=== PATIENT | male | born 1950 | race Caucasian/White ===

== ENCOUNTER 2018-09-09 14:36 | Inpatient (IN) | payer MEDICARE, OTHER ==
[~2018-09-09] VITALS: Ht 175.3 cm; Wt 101.4 kg
[~2018-09-09 14:36] MED LIST: ASPI81TA59 PO; ATOR40TA59 PO; BUDE10.22 IH; DILT120C85 PO; DULO30CA2 PO; FERR325T72 PO; FINA5TAB4 PO; HYDR-2761 PO; HYDR-2765 PO; INSU100I27 SQ; LEVO50TA5 PO; LIDO700A4 TD; LISI2.5T PO; LORA0.5T PO; METO25TA4 PO; MULT1TAB90 PO; PANT40TA5 PO; TAMS0.4C2 PO; TAMS0.4C97 PO; TIOT18CA IH; TRAM50TA PO; VERA240C2 PO; WARF-78 PO
[2018-09-09] MEDS ORDERED: THIAMINE 100 MG TABLET. PO STA (14:38)
[2018-09-09] MEDS ORDERED: FOLIC ACID 1 MG TABLET. PO STA (14:38)
[2018-09-09 14:57] LABS: BILIRUBIN,URINE NEGATIVE (NEG); CLARITY,URINE CLEAR; COLOR,URINE YELLOW; NITRITE,URINE NEGATIVE (NEG); PROTEIN,URINE NEGATIVE (NEG-TRACE); UROBILINOGEN,URINE 0.2 mg/dL (0.2 mg/dL)
[2018-09-09 14:58] LABS: BASO % 0 % (0-3); EOS % 0 % (0-3); HEMATOCRIT 39.1 % (39.0-53.0); HEMOGLOBIN 12.9 g/dL (13.0-17.5); LYMPH # 0.5 x10^3/uL (1.0-4.8); LYMPH % 5 % (24-48); MEAN CORPUSCULAR HEMOGLOBIN 28 pg (25-35); MEAN CORPUSCULAR HGB CONC 33 g/dL (31-37); MEAN CORPUSCULAR VOLUME 86 fL (79-100); MONO # 0.5 x10^3/uL (0.0-1.1); MONO % 5 % (0-9); NEUT # 9.2 x10^3uL (1.8-7.7); NEUT % 90 % (31-73); PLATELET COUNT 271 x10^3/uL (140-400); RED BLOOD COUNT 4.57 x10^6/uL (4.30-5.70); RED CELL DISTRIBUTION WIDTH 14.7 % (11.5-14.5); WHITE BLOOD COUNT 10.3 x10^3/uL (4.0-11.0)
[2018-09-09] MEDS ORDERED: IV NORMAL SALINE 1000ML BAG 1,000 ML IV ONE (15:00)
[2018-09-09 15:10] LABS: PROTHROMBIN TIME PATIENT 12.8 SEC (11.7-14.0)
[2018-09-09 15:14] LABS: BACTERIA,URINE 0 /HPF (0-FEW); BARBITURATES NEG (NEG); BENZODIAZEPINES NEG (NEG); CANNABINOIDS NEG (NEG); COCAINE NEG (NEG); METHADONE NEG (NEG); OPIATES POS (NEG); PHENCYCLIDINE NEG (NEG); RBC,URINE 0 /HPF (0-2); SQUAMOUS EPITHELIAL CELL,UR FEW /LPF; WBC,URINE 0 /HPF (0-4)
[2018-09-09 15:15] LABS: AMPHETAMINE/METHAMPHETAMINE NEG (NEG); CALCIUM 9.2 mg/dL (8.5-10.1); CREATININE 2.3 mg/dL (0.7-1.3); GFR 28.3
[2018-09-09 15:16] LABS: ACETAMIN < 2 mcg/ml (10-30); ETHANOL < 10 mg/dL (0-10); SALIC < 2.8 mg/dL (2.8-20.0)
[2018-09-09 15:24] LABS: ALBUMIN 3.7 g/dL (3.4-5.0); MAGNESIUM 2.2 mg/dL (1.8-2.4); TOTAL BILIRUBIN 0.3 mg/dL (0.2-1.0); TOTAL PROTEIN 7.3 g/dL (6.4-8.2)
[2018-09-09 15:31] LABS: % BANDS 1 % (0-9); % LYMPHS 4 % (24-48); % MONOS 3 % (0-10); % SEGS 92 % (35-66)
[2018-09-09 15:32] LABS: PLT ESTIMATE ADEQUATE (ADEQUATE)
--- NOTE | 2018-09-09 15:48 | RAD ---
PQRS Compliance statement: One or more of the following individualized dose reduction techniques were utilized for this examination: 1. Automated exposure control. 2. Adjustment of the mA and/or kV according to patient size. 3. Use of iterative reconstruction technique. Indication:ALTERED MENTAL STATUS, CHANGES IN SPEECH PER FAMILY TECHNIQUE: CT head without IV contrast COMPARISON:07/09/2016 FINDINGS: No pathologic extra-axial or intra-axial fluid collection. Mild diffuse cerebral atrophy. The ventricles and basal cisterns are within normal limits. No acute intracranial bleed. Confluent low-attenuation is seen in the periventricular and deep white matter. No focal loss of fonseca-white differentiation. Orbits are within normal limits. Mucous retention cyst or polyp seen in the right maxillary sinus. Significant atherosclerotic burden seen in the bilateral carotid bulbs. No acute calvarial fractures. Atherosclerotic disease seen of the bilateral cavernous segments of the ICA. No suspicious calvarial lesion. IMPRESSION: 1. No acute intracranial bleed. 2. White matter changes likely secondary to chronic microvascular ischemic disease. If concern for acute ischemic stroke is high, please consider MRI brain. Electronically signed by: Jay Matute DO (09/09/2018 3:44 PM) [facility]
[2018-09-09 16:17] LABS: BASE EXCESS IS ARTERIAL 0 mmol/L (0-3); HCO3 IS ARTERIAL 27 mmol/L (21-28); PH IS ARTERIAL 7.26 (7.35-7.45); PO2 IS ARTERIAL 68 mmHg (75-100); SAT O2 IS ARTERIAL 89 % (95-99); TCO2 IS ARTERIAL 29 mmol/L (21-32)
[2018-09-09] MEDS ORDERED: LABETALOL 20 MG/4 ML DISP.SYRIN. IVP ONE (17:00)
[2018-09-09] MEDS ORDERED: chlordiazePOXIDE HCL 25 MG CAPSULE PO PRN (17:00)
[2018-09-09] MEDS ORDERED: ACETAMINOPHEN 500 MG TABLET PO PRN (17:00)
[2018-09-09] MEDS ORDERED: NICOTINE 21MG PATCH. TD PRN (17:15)
[2018-09-09] MEDS ORDERED: DEXTROSE 50% 25 GM / 50ML DISP.SYRIN. IV PRN (17:15)
[2018-09-09] MEDS ORDERED: diphenhydrAMINE HCL 25 MG CAPSULE PO PRN (17:15)
[2018-09-09] MEDS ORDERED: oxyCODONE/APAP 5/325 1 TAB TABLET PO PRN (17:15)
[2018-09-09] MEDS ORDERED: LORazepam 0.5 MG TABLET PO PRN (17:15)
[2018-09-09] MEDS ORDERED: traMADol 50 MG TABLET PO PRN (17:15)
--- NOTE | 2018-09-09 17:22 | RAD ---
Indication:Weak and fatigue TECHNIQUE:Portable AP chest X-ray COMPARISON:07/10/2016 FINDINGS: Patient is rotated to the right side. Median sternotomy noted. Heart is moderately enlarged in size. Lungs are hyperinflated with patchy opacities in the right lung base. No pneumothorax or pleural effusion. Visualized bony thorax is within normal limits. IMPRESSION: Mild patchy opacities in the right lung base may be secondary to subsegmental atelectasis or pneumonia. Findings of COPD. Electronically signed by: Jay Matute DO (09/09/2018 5:18 PM) [facility]
[2018-09-09] MEDS ORDERED: IV NORMAL SALINE 1000ML BAG 1,000 ML IV SCH ×2 (17:30→18:00)
[2018-09-09] MEDS ORDERED: cloNIDine HCL 0.1 MG TABLET PO PRN (17:30)
[2018-09-09] MEDS ORDERED: IPRATRPIUM/ALBUTEROL 0.5/2.5MG 3 ML NEBU. NEB ONE (17:30)
[2018-09-09] MEDS: WARFARIN 7.5 MG TABLET. PO SCH (18:00)
--- NOTE | 2018-09-09 18:02 | PHYS DOC ---
Past Medical History Past Medical History: Alcoholism, CAD, COPD, Diabetes-Type II, High Cholesterol , Hypertension, Other Additional Past Medical Histor: WEARS CPAP AT NIGHT Past Surgical History: Coronary Bypass Surgery Alcohol Use: Heavy Drug Use: None Adult General Chief Complaint Chief Complaint: TREMORS HPI HPI Patient is a 67 year old m brought in by ambulance with a chief complaint of altered mental status. Apparently the patient has been in bed for about 2 weeks he has had some bad back pain which is typical for him. Patient apparently drank alcohol for the first time in a couple of weeks last night he also had a new prescription for [place] that was given to him at the [place] yesterday. 14 of them are missing family does not know if or when he took it. This morning he slept in late which was unusual for him and he was twitching and having tremors and saying he needed help and was really altered from his baseline. History limited by altered mental status. Review of Systems Review of Systems According to the family no recent fevers but he has been in bed for the last 2 weeks For review of systems Limited by the patient's mental status. Current Medications Current Medications Current Medications Medications (Trade) Dose Ordered Sig/Drew Start Time Stop Time Status Last Admin Dose Admin Acetaminophen (Tylenol) 500 mg PRN Q6HRS PRN 09/09/18 17:00 Chlordiazepoxide (Librium) 25 mg PRN Q6HRS PRN 09/09/18 17:00 Dextrose (Dextrose 50%-Water Syringe) 12.5 gm PRN Q15MIN PRN 09/09/18 17:15 Diphenhydramine HCl (Benadryl) 25 mg PRN QHS PRN 09/09/18 17:15 Folic Acid (Folic Acid) 1 mg 1X STAT 09/09/18 14:38 09/09/18 14:41 DC 09/09/18 14:50 1 MG Labetalol HCl (Normodyne Iv Push) 20 mg PRN Q2HR PRN 09/09/18 17:00 Lorazepam (Ativan) 0.5 mg PRN DAILY PRN 09/09/18 17:15 Morphine Sulfate (Morphine Sulfate) 2 mg PRN Q2HR PRN 09/09/18 17:00 Nicotine (Nicoderm Cq 21mg) 1 patch PRN DAILY PRN 09/09/18 17:15 Oxycodone/ Acetaminophen (Percocet 5/325) 1 tab PRN Q4HRS PRN 09/09/18 17:15 Sodium Chloride 1,000 ml @ 1,000 mls/hr 1X ONCE 09/09/18 15:00 09/09/18 15:59 DC 09/09/18 14:50 1,000 MLS/HR Thiamine Mononitrate (Vitamin B-1) 100 mg 1X STAT 09/09/18 14:38 09/09/18 14:41 DC 09/09/18 14:50 100 MG Tramadol HCl (Ultram) 50 mg PRN Q6HRS PRN 09/09/18 17:15 Allergies Allergies Allergies Coded Allergies Type Severity Reaction Last Updated Verified Penicillins Allergy Intermediate PEELING HANDS; TOLERATES AMOXICILLIN Yes celecoxib Allergy Intermediate "i dont know" 07/09/16 Yes gabapentin Allergy Intermediate "i dont know" 07/09/16 Yes pregabalin Allergy Intermediate "i dont know" 07/09/16 Yes tadalafil Allergy Intermediate "i dont know" 07/09/16 Yes terazosin Allergy Intermediate "i dont know" 07/09/16 Yes varenicline Allergy Intermediate "i dont know" 07/09/16 Yes Physical Exam Physical Exam Mildly ill appearing appears to have multiple chronic illnesses obese, CABG scar is noted well nourished, non-toxic appearance. [] HENT: Normocephalic, atraumatic, bilateral external ears normal, oropharynx moist, no oral exudates, nose normal. [] Eyes: PERRLA, EOMI, conjunctiva normal, no discharge. [] Neck: Normal range of motion, no tenderness, supple, no stridor. [] Cardiovascular: Mild tachycardia no definite murmurs are noted Lungs & Thorax: Decreased bibasilar breath sounds are noted. Faint wheezing is also noted. Abdomen: Bowel sounds normal, soft, no tenderness, no masses, no pulsatile masses. [] Distended but nontender Skin: Erythematous rash on the upper extremity is in upper chest as noted Extremities: No tenderness, no cyanosis, no clubbing, ROM intact, 2+ symmetric edema Neurologic: Patient's eyes are open spontaneously is able to follow commands he knows he's had [facility] he does appear to be intermittently grabbing at things in the air but his extraocular movements are intact his strengths are equal bilaterally. Current Patient Data Vital Signs Vital Signs Date Time Temp Pulse Resp B/P (MAP) Pulse Ox O2 Delivery O2 Flow Rate FiO2 09/09/18 16:53 107 214/105 09/09/18 16:44 20 98 BiPAP/CPAP 09/09/18 16:26 4.0 09/09/18 14:36 98.2 98.2 Lab Values Laboratory Tests Test 09/09/18 14:35 09/09/18 15:51 09/09/18 16:13 White Blood Count 10.3 x10^3/uL (4.0-11.0) Red Blood Count 4.57 x10^6/uL (4.30-5.70) Hemoglobin 12.9 g/dL (13.0-17.5) L Hematocrit 39.1 % (39.0-53.0) Mean Corpuscular Volume 86 fL (79-100) Mean Corpuscular Hemoglobin 28 pg (25-35) Mean Corpuscular Hemoglobin Concent 33 g/dL (31-37) Red Cell Distribution Width 14.7 % (11.5-14.5) H Platelet Count 271 x10^3/uL (140-400) Neutrophils (%) (Auto) 90 % (31-73) H Lymphocytes (%) (Auto) 5 % (24-48) L Monocytes (%) (Auto) 5 % (0-9) Eosinophils (%) (Auto) 0 % (0-3) Basophils (%) (Auto) 0 % (0-3) Neutrophils # (Auto) 9.2 x10^3uL (1.8-7.7) H Lymphocytes # (Auto) 0.5 x10^3/uL (1.0-4.8) L Monocytes # (Auto) 0.5 x10^3/uL (0.0-1.1) Eosinophils # (Auto) 0.0 x10^3/uL (0.0-0.7) Basophils # (Auto) 0.0 x10^3/uL (0.0-0.2) Segmented Neutrophils % 92 % (35-66) H Band Neutrophils % 1 % (0-9) Lymphocytes % 4 % (24-48) L Monocytes % 3 % (0-10) Platelet Estimate Adequate (ADEQUATE) Prothrombin Time 12.8 SEC (11.7-14.0) Prothrombin Time INR 1.0 (0.8-1.1) Urine Collection Type Unknown Urine Color Yellow Urine Clarity Clear Urine pH 5.0 Urine Specific Theriot 1.025 Urine Protein Negative mg/dL (NEG-TRACE) Urine Glucose (UA) Negative mg/dL (NEG) Urine Ketones (Stick) Negative mg/dL (NEG) Urine Blood Negative (NEG) Urine Nitrite Negative (NEG) Urine Bilirubin Negative (NEG) Urine Urobilinogen Dipstick 0.2 mg/dL (0.2 mg/dL) Urine Leukocyte Esterase Negative (NEG) Urine RBC 0 /HPF (0-2) Urine WBC 0 /HPF (0-4) Urine Squamous Epithelial Cells Few /LPF Urine Bacteria 0 /HPF (0-FEW) Urine Mucus Marked /LPF Sodium Level 138 mmol/L (136-145) Potassium Level 5.0 mmol/L (3.5-5.1) Chloride Level 98 mmol/L (98-107) Carbon Dioxide Level 28 mmol/L (21-32) Anion Gap 12 (6-14) Blood Urea Nitrogen 41 mg/dL (8-26) H Creatinine 2.3 mg/dL (0.7-1.3) H Estimated GFR (Cockcroft-Gault) 28.3 BUN/Creatinine Ratio 18 (6-20) Glucose Level 180 mg/dL (70-99) H Calcium Level 9.2 mg/dL (8.5-10.1) Magnesium Level 2.2 mg/dL (1.8-2.4) Total Bilirubin 0.3 mg/dL (0.2-1.0) Aspartate Amino Transferase (AST) 47 U/L (15-37) H Alanine Aminotransferase (ALT) 51 U/L (16-63) Alkaline Phosphatase 63 U/L (46-116) Creatine Kinase 849 U/L (39-308) H Troponin I Quantitative 0.037 ng/mL (0.000-0.055) Total Protein 7.3 g/dL (6.4-8.2) Albumin 3.7 g/dL (3.4-5.0) Albumin/Globulin Ratio 1.0 (1.0-1.7) Lipase 92 U/L (73-393) Salicylates Level < 2.8 mg/dL (2.8-20.0) L Salicylate Last Dose Date Unk Salicylate Last Dose Time Unk Urine Opiates Screen Pos (NEG) Urine Methadone Screen Neg (NEG) Acetaminophen Level < 2 mcg/ml (10-30) L Acetaminophen Last Dose Date Unk Acetaminophen Last Dose Time Unk Urine Barbiturates Neg (NEG) Urine Phencyclidine Screen Neg (NEG) Urine Amphetamine/Methamphetamine Neg (NEG) Urine Benzodiazepines Screen Neg (NEG) Urine Cocaine Screen Neg (NEG) Urine Cannabinoids Screen Neg (NEG) Ethyl Alcohol Level < 10 mg/dL (0-10) Urine Ethyl Alcohol Neg (NEG) O2 Saturation 89 % (92-99) L Arterial Blood pH 7.26 (7.35-7.45) L Arterial Blood pCO2 at Patient Temp 61 mmHg (35-46) *H Arterial Blood pO2 at Patient Temp 68 mmHg (65-108) Arterial Blood HCO3 27 mmol/L (21-28) 27 mmol/L (21-28) Arterial Blood Base Excess 0 mmol/L (-3-3) FiO2 36% POC Arterial pH 7.26 (7.35-7.45) L POC Arterial pCO2 61 mmHg (35-45) *H POC Arterial pO2 68 mmHg (75-100) L POC Arterial Blood O2 Sat 89 % (95-99) L POC FiO2 36.0 Laboratory Tests 09/09/18 14:35 Laboratory Tests 09/09/18 14:35 EKG EKG []EKG shows a sinus tachycardia at a rate of 104 there are some nonspecific ST changes noted laterally no definite ischemia or STEMI is seen. QTC is 451 interpreted by me time of encounter. Radiology/Procedures Radiology/Procedures [] Impressions: IMPRESSION: Mild patchy opacities in the right lung base may be secondary to subsegmental atelectasis or pneumonia. Findings of COPD. Electronically signed by: Jay Matute DO (09/09/2018 5:18 PM) [facility] DICTATED and SIGNED BY: JAY MATUTE DO DATE: 09/09/18 1717 IMPRESSION: 1. No acute intracranial bleed. 2. White matter changes likely secondary to chronic microvascular ischemic disease. If concern for acute ischemic stroke is high, please consider MRI brain. Electronically signed by: Jay Matute DO (09/09/2018 3:44 PM) [facility] Course & Med Decision Making Course & Med Decision Making Pertinent Labs and Imaging studies reviewed. (See chart for details) 67-year-old male with a history of COPD hypertension status post CABG obesity chronic pain history of alcohol abuse multiple medical problems followed at the [place]. Brought in by ambulance with altered mental status after an apparent alcohol binge last night and excessive intake of hydrocodone/acetaminophen. Summary of emergency room course: Patient has evidence of mild respiratory acidosis and mild hypoxemic respiratory failure and blood gas BiPAP was initiated I reevaluated him after the BiPAP and he seemed to be improving somewhat with better work of breathing. Patient has also evidence of pneumonia on chest x-ray blood culture and Levaquin was initiated in the emergency room. In addition the creatinine was also elevated the CK is 890, patient was resuscitated with IV fluids for this. In addition the patient began to have more elevated blood pressures up into the 210 systolic range this appeared to be accompanied by some increasing agitation the patient was not hypoxic during this. He did however seem that he was sort of grabbing at things I think there may be a component of alcohol withdrawal and so I ordered some Ativan for that as well. We also gave some IV blood pressure medication for the blood pressure. I'm aware that that could've potentially decompensate his respiratory status but he is on BiPAP and he will go to the intensive care unit due to these competing priorities. Spoke with Dr. fallon multiple issues as noted above to be admitted. Critical care time was 40 minutes exclusive of procedures. For management of hypoxemic respiratory failure as well as acute altered mental status with multiple other issues such as hypertensive emergency and acute kidney injury etc. Dragon Disclaimer Dragon Disclaimer This electronic medical record was generated, in whole or in part, using a voice recognition dictation system. Departure Departure Impression: Primary Impression: Acute kidney injury Additional Impressions: Rhabdomyolysis Alcohol withdrawal Pneumonia Disposition: 09 ADMITTED INPATIENT Admitting Physician: Drea Fallon Condition: GUARDED Referrals: NO PCP (PCP) Problem Qualifiers POLLY PALAFOX MD Sep 09, 2018 18:02
[2018-09-09 18:15] VITALS: BP 170/80
--- NOTE | 2018-09-09 18:56 | PDOC1 ---
History and Physical Date of Admission Date of Admission DATE: 09/09/18 TIME: 18:47 Identification/Chief Complaint Chief Complaint Tremors, worsening mentation, unable to walk Source Source: Caregiver, Chart review, Patient History of Present Illness History of Present Illness 67-year-old male, morbidly obese, potbelly with a BMI 37, lots of past medical history, usually follows with OR. His past medical history includes alcohol use but family claims he has been sober for good months now, ( previous history of attending alcohol anonymous). Lots of comorbidities including alcohol use, history of sepsis, UTI, IBS with alternating bowel movements, CAD, possibly open heart surgery in the past, COPD, narcotic dependence, hypertension, possible sleep apnea on CPAP, diabetes. In any case brought in by family because of tremors and inability to walk and worsening mentation family claims even when sober. There is some reports that he might have gotten 15 [place] unintentionally within the last 12 hours bec of worsenng and persistent back pain despite recent w/up at OR (He mentions multiple imaging tests). HE is admitted to the ICU with atelectasis and pneumonia on x- ray with an ABG that shows some acidosis may be pH of 7.25, PCO2 60-he has pickwickian syndrome and most likely has sleep apnea need CPAP at night. Blood pressure also high needed labetalol pushes at the emergency room. Lots of medical issues going on hence admitted to the ICU with possibly BiPAP, CAP coverage, addressing of the back pain, addressing mental issues. Addressing alcoholism etc. Labs show creat 2.3 from a baseline 1.[address] head. Past Medical History Cardiovascular: CAD, HTN, Hyperlipidemia, Other Pulmonary: COPD CENTRAL NERVOUS SYSTEM: Other GI: GERD, Other Heme/Onc: No pertinent hx Hepatobiliary: No pertinent hx Psych: Anxiety, Other Musculoskeletal: Osteoarthritis, Other Rheumatologic: No pertinent hx Infectious disease: No pertinent hx Renal/: No pertinent hx Endocrine: Diabetes Past Surgical History Past Surgical History: CABG, Other Family History Family History: Heart Disease Social History ALCOHOL: heavy Drugs: None Current Problem List Problem List Problems Medical Problems: (1) Acute kidney injury Status: Acute (2) Alcohol withdrawal Status: Acute (3) Pneumonia Status: Acute (4) Rhabdomyolysis Status: Acute Current Medications Current Medications Current Medications Thiamine Mononitrate (Vitamin B-1) 100 mg 1X STAT PO Last administered on at 14:50; Start 09/09/18 at 14:38; Stop 09/09/18 at 14:41; Status DC Folic Acid (Folic Acid) 1 mg 1X STAT PO Last administered on 09/09/18at 14:50 ; Start 09/09/18 at 14:38; Stop 09/09/18 at 14:41; Status DC Sodium Chloride 1,000 ml @ 1,000 mls/hr 1X ONCE IV Last administered on 09/09at 14:50; Start 09/09/18 at 15:00; Stop 09/09/18 at 15:59; Status DC Labetalol HCl (Normodyne Iv Push) 20 mg 1X ONCE IVP Last administered on 09/09at 16:53; Start 09/09/18 at 17:00; Stop 09/09/18 at 17:01; Status DC Chlordiazepoxide (Librium) 25 mg PRN Q6HRS PRN PO ANXIETY / AGITATION; Start 09/09/18 at 17:00 Acetaminophen (Tylenol) 500 mg PRN Q6HRS PRN PO MILD PAIN / TEMP; Start at 17:00 Morphine Sulfate (Morphine Sulfate) 2 mg PRN Q2HR PRN IV MODERATE TO SEVERE PAIN; Start 09/09/18 at 17:00 Sodium Chloride 1,000 ml @ 100 mls/hr Q10H IV ; Start 09/09/18 at 18:00 Multivitamins (Thera M Plus) 1 tab DAILY PO ; Start 09/10/18 at 09:00 Thiamine Mononitrate (Vitamin B-1) 100 mg DAILY PO ; Start 09/10/18 at 09:00 Folic Acid (Folic Acid) 1 mg DAILY PO ; Start 09/10/18 at 09:00 Labetalol HCl (Normodyne Iv Push) 20 mg PRN Q2HR PRN IVP HYPERTENSION, SEE COMMENTS; Start 09/09/18 at 17:00 Nicotine (Nicoderm Cq 21mg) 1 patch PRN DAILY PRN TD SMOKING CESSATION; Start 09/09/18 at 17:15 Oxycodone/ Acetaminophen (Percocet 5/325) 1 tab PRN Q4HRS PRN PO MODERATE PAIN ; Start 09/09/18 at 17:15 Diphenhydramine HCl (Benadryl) 25 mg PRN QHS PRN PO INSOMNIA; Start 09/09/18 at 17:15 Aspirin (Children'S Aspirin) 81 mg DAILYWBKFT PO ; Start 09/10/18 at 08:00 Atorvastatin Calcium (Lipitor) 40 mg QHS PO ; Start 09/09/18 at 21:00 Atorvastatin Calcium (Lipitor) 40 mg QHS PO ; Start 09/09/18 at 21:00; Status UNV Duloxetine HCl (Cymbalta) 30 mg BID PO ; Start 09/09/18 at 21:00 Ferrous Sulfate (Feosol) 325 mg DAILYAC PO ; Start 09/10/18 at 07:30 Finasteride (Proscar) 5 mg DAILY PO ; Start 09/10/18 at 09:00 Lorazepam (Ativan) 0.5 mg PRN DAILY PRN PO ANXIETY / AGITATION; Start at 17:15 Metoprolol Tartrate (Lopressor) 25 mg BID PO ; Start 09/09/18 at 21:00 Pantoprazole Sodium (Protonix) 40 mg DAILYAC PO ; Start 09/10/18 at 07:30 Tamsulosin HCl (Flomax) 0.4 mg DAILY PO ; Start 09/10/18 at 09:00 Tramadol HCl (Ultram) 50 mg PRN Q6HRS PRN PO MILD TO MODERATE PAIN; Start at 17:15 Budesonide (Pulmicort) 0.5 mg RTBID NEB ; Start 09/09/18 at 20:00 Diltiazem HCl (Cardizem 24hr Cd) 120 mg DAILY PO ; Start 09/10/18 at 09:00 Insulin Glargine (Lantus) 10 units QHS SQ ; Start 09/09/18 at 21:00 Levothyroxine Sodium (Synthroid) 50 mcg DAILY06 PO ; Start 09/10/18 at 06:00 Lidocaine (Lidoderm) 1 patch DAILY TD ; Start 09/10/18 at 09:00 Lisinopril (Prinivil) 2.5 mg DAILY PO ; Start 09/10/18 at 09:00 Non-Formulary Medication (Tiotropium Gregory (Spiriva)) 2 inh DAILY IH ; Start 09/10/18 at 09:00; Status UNV Warfarin Sodium (Coumadin) 7.5 mg DAILY16 PO ; Start 09/09/18 at 18:00 Insulin Human Lispro (HumaLOG) 0-9 UNITS TIDWMEALS SQ ; Start 09/10/18 at 08:00 Dextrose (Dextrose 50%-Water Syringe) 12.5 gm PRN Q15MIN PRN IV SEE COMMENTS; Start 09/09/18 at 17:15 Miscellaneous (Lidoderm Patch Removal) 1 ea QHS MC ; Start 09/09/18 at 21:00 Albuterol/ Ipratropium (Duoneb) 3 ml RTQID NEB ; Start 09/09/18 at 20:00 Warfarin Sodium (Coumadin Per Physician) 1 each PRN DAILY PRN MC SEE COMMENTS; Start 09/09/18 at 17:30 Sodium Chloride 1,000 ml @ 75 mls/hr [id number] IV ; Start 09/09/18 at 17:30; Stop 09/10/18 at 17:29 Lorazepam (Ativan) 2 mg 1X ONCE IV ; Start 09/09/18 at 17:30; Stop 09/09/18 at 17:31; Status DC Clonidine HCl (Catapres) 0.1 mg PRN Q1HR PRN PO SBP > 180 or DBP > 100, MRX3; Start 09/09/18 at 17:30 Lorazepam (Ativan) 2 mg PRN Q15MIN PRN IV CIWA 8-14; Start 09/09/18 at 17:30 Albuterol/ Ipratropium (Duoneb) 3 ml 1X ONCE NEB ; Start 09/09/18 at 17:30; Stop 09/09/18 at 17:31; Status DC Levofloxacin/ Dextrose 150 ml @ 100 mls/hr 1X ONCE IV ; Start 09/09/18 at 17: 30; Stop 09/09/18 at 18:59 Active Scripts Active Pantoprazole Sodium 40 Mg Tablet.dr 40 Mg PO DAILYAC Coumadin (Warfarin Sodium) 5 Mg Tablet 1.5 Tab PO DAILY Flomax (Tamsulosin Hcl) 0.4 Mg Cap.er.24h 0.4 Mg PO QHS Thera-M Tablet (Multivits,Ca,Minerals/Iron/Fa) 1 Each Tablet 1 Tab PO DAILY Lidoderm (Lidocaine) 700 Mg Adh..patch 1 Patch TD DAILY 12hours on, 12 hours off Metoprolol Tartrate 25 Mg Tablet 25 Mg PO BID Lisinopril 2.5 Mg Tablet 2.5 Mg PO DAILY Levemir Flextouch (Insulin Detemir) 100 Unit/1 Ml Insuln.pen 10 Units SQ QHS 30 Days Feosol (Ferrous Sulfate) 325 Mg Tablet 325 Mg PO DAILYAC Diltiazem 24HR Cd (Diltiazem Hcl) 120 Mg Cap.er.24h 120 Mg PO DAILY Children's Aspirin (Aspirin) 81 Mg Tab.chew 81 Mg PO DAILYWBKFT Atorvastatin Calcium 40 Mg Tablet 40 Mg PO QHS Reported Symbicort 80-4.5 Mcg Inhaler (Budesonide/Formoterol Fumarate) 10.2 Gm Hfa.aer.ad 2 Puff IH BID Cymbalta (Duloxetine Hcl) 30 Mg Capsule.dr 30 Mg PO BID Finasteride 5 Mg Tablet 1 Tab PO DAILY Levothyroxine Sodium 50 Mcg Tablet 1 Tab PO DAILY Tamsulosin Hcl 0.4 Mg Cap.er.24h 0.4 Mg PO DAILY Lorazepam 0.5 Mg Tablet 1 Tab PO DAILY PRN Spiriva (Tiotropium Gregory) 18 Mcg Cap.w.dev 2 Inh IH DAILY Hydrocodone-Apap 7.5-325 (Hydrocodone Bit/Acetaminophen) 1 Each Tablet 1 Tab PO Q4HRS PRN Tramadol Hcl 50 Mg Tablet 50 Mg PO Q6H PRN Atorvastatin Calcium 40 Mg Tablet 1 Tab PO QHS Hydrocodone-Apap 5-325 (Hydrocodone Bit/Acetaminophen) 1 Each Tablet 1 Tab PO Q4HRS PRN Metoprolol Tartrate 25 Mg Tablet 1 Tab PO BID Allergies Allergies: Coded Allergies: Penicillins (Verified Allergy, Intermediate, PEELING HANDS; TOLERATES AMOXICILLIN, 07/14/16) celecoxib (Verified Allergy, Intermediate, "i dont know", 07/09/16) gabapentin (Verified Allergy, Intermediate, "i dont know", 07/09/16) pregabalin (Verified Allergy, Intermediate, "i dont know", 07/09/16) tadalafil (Verified Allergy, Intermediate, "i dont know", 07/09/16) terazosin (Verified Allergy, Intermediate, "i dont know", 07/09/16) varenicline (Verified Allergy, Intermediate, "i dont know" , 07/09/16) ROS Review of System Back pain, weak, forgetful, SOA, hurting everywhere, no chest pain, the rest of ROS is limited or he denies Physical Exam General: mild distress, Other (tachypneic,) HEENT: Atraumatic, PERRLA Lungs: Normal air movement, Other (symmetrical chest expansion with decreased breath sounds secondary to increased AP diameter, no wheezing or crackles appreciable) Heart: S1S2, RRR, no thrills, no rubs, no gallops, no murmurs Cardiovascular: S1 Abdomen: Soft, Other (pot belly) Male Genitals Exam: normal genitalia Rectal Exam: not examined Extremities: No clubbing, No cyanosis, No edema, Normal pulses, No tenderness/ swelling Skin: No rashes Neuro: Normal gait, Normal speech, Strength at 5/5 X4 ext, Normal tone, Sensation intact, Cranial nerves 3-12 NL, Reflexes 2+ Vitals Vitals Vital Signs Date Time Temp Pulse Resp B/P (MAP) Pulse Ox O2 Delivery O2 Flow Rate FiO2 09/09/18 17:30 88 24 156/84 (108) 98 BiPAP/CPAP 09/09/18 16:26 4.0 09/09/18 14:36 98.2 98.2 Labs Labs Laboratory Tests Test 09/09/18 14:35 09/09/18 15:51 09/09/18 16:13 09/09/18 17:34 White Blood Count 10.3 x10^3/uL (4.0-11.0) Red Blood Count 4.57 x10^6/uL (4.30-5.70) Hemoglobin 12.9 g/dL (13.0-17.5) Hematocrit 39.1 % (39.0-53.0) Mean Corpuscular Volume 86 fL (79-100) Mean Corpuscular Hemoglobin 28 pg (25-35) Mean Corpuscular Hemoglobin Concent 33 g/dL (31-37) Red Cell Distribution Width 14.7 % (11.5-14.5) Platelet Count 271 x10^3/uL (140-400) Neutrophils (%) (Auto) 90 % (31-73) Lymphocytes (%) (Auto) 5 % (24-48) Monocytes (%) (Auto) 5 % (0-9) Eosinophils (%) (Auto) 0 % (0-3) Basophils (%) (Auto) 0 % (0-3) Neutrophils # (Auto) 9.2 x10^3uL (1.8-7.7) Lymphocytes # (Auto) 0.5 x10^3/uL (1.0-4.8) Monocytes # (Auto) 0.5 x10^3/uL (0.0-1.1) Eosinophils # (Auto) 0.0 x10^3/uL (0.0-0.7) Basophils # (Auto) 0.0 x10^3/uL (0.0-0.2) Segmented Neutrophils % 92 % (35-66) Band Neutrophils % 1 % (0-9) Lymphocytes % 4 % (24-48) Monocytes % 3 % (0-10) Platelet Estimate Adequate (ADEQUATE) Prothrombin Time 12.8 SEC (11.7-14.0) Prothromb Time International Ratio 1.0 (0.8-1.1) Urine Collection Type Unknown Urine Color Yellow Urine Clarity Clear Urine pH 5.0 Urine Specific [place] 1.025 Urine Protein Negative mg/dL (NEG-TRACE) Urine Glucose (UA) Negative mg/dL (NEG) Urine Ketones (Stick) Negative mg/dL (NEG) Urine Blood Negative (NEG) Urine Nitrite Negative (NEG) Urine Bilirubin Negative (NEG) Urine Urobilinogen Dipstick 0.2 mg/dL (0.2 mg/dL) Urine Leukocyte Esterase Negative (NEG) Urine RBC 0 /HPF (0-2) Urine WBC 0 /HPF (0-4) Urine Squamous Epithelial Cells Few /LPF Urine Bacteria 0 /HPF (0-FEW) Urine Mucus Marked /LPF Sodium Level 138 mmol/L (136-145) Potassium Level 5.0 mmol/L (3.5-5.1) Chloride Level 98 mmol/L (98-107) Carbon Dioxide Level 28 mmol/L (21-32) Anion Gap 12 (6-14) Blood Urea Nitrogen 41 mg/dL (8-26) Creatinine 2.3 mg/dL (0.7-1.3) Estimated GFR (Cockcroft-Gault) 28.3 BUN/Creatinine Ratio 18 (6-20) Glucose Level 180 mg/dL (70-99) Calcium Level 9.2 mg/dL (8.5-10.1) Magnesium Level 2.2 mg/dL (1.8-2.4) Total Bilirubin 0.3 mg/dL (0.2-1.0) Aspartate Amino Transf (AST/SGOT) 47 U/L (15-37) Alanine Aminotransferase (ALT/SGPT) 51 U/L (16-63) Alkaline Phosphatase 63 U/L (46-116) Creatine Kinase 849 U/L (39-308) Troponin I Quantitative 0.037 ng/mL (0.000-0.055) Total Protein 7.3 g/dL (6.4-8.2) Albumin 3.7 g/dL (3.4-5.0) Albumin/Globulin Ratio 1.0 (1.0-1.7) Lipase 92 U/L (73-393) Salicylates Level < 2.8 mg/dL (2.8-20.0) Salicylate Last Dose Date Unk Salicylate Last Dose Time Unk Urine Opiates Screen Pos (NEG) Urine Methadone Screen Neg (NEG) Acetaminophen Level < 2 mcg/ml (10-30) Acetaminophen Last Dose Date Unk Acetaminophen Last Dose Time Unk Urine Barbiturates Neg (NEG) Urine Phencyclidine Screen Neg (NEG) Urine Amphetamine/Methamphetamine Neg (NEG) Urine Benzodiazepines Screen Neg (NEG) Urine Cocaine Screen Neg (NEG) Urine Cannabinoids Screen Neg (NEG) Ethyl Alcohol Level < 10 mg/dL (0-10) Urine Ethyl Alcohol Neg (NEG) O2 Saturation 89 % (92-99) Arterial Blood pH 7.26 (7.35-7.45) Arterial Blood pCO2 at Patient Temp 61 mmHg (35-46) Arterial Blood pO2 at Patient Temp 68 mmHg (65-108) Arterial Blood HCO3 27 mmol/L (21-28) 27 mmol/L (21-28) Arterial Blood Base Excess 0 mmol/L (-3-3) FiO2 36% Bedside Arterial pH 7.26 (7.35-7.45) Bedside Arterial pCO2 61 mmHg (35-45) Bedside Arterial pO2 68 mmHg (75-100) Bedside Arterial Blood O2 Sat 89 % (95-99) Bedside FiO2 36.0 Lactic Acid Level 2.0 mmol/L (0.4-2.0) Laboratory Tests Test 09/09/18 14:35 09/09/18 15:51 09/09/18 16:13 09/09/18 17:34 White Blood Count 10.3 x10^3/uL (4.0-11.0) Red Blood Count 4.57 x10^6/uL (4.30-5.70) Hemoglobin 12.9 g/dL (13.0-17.5) Hematocrit 39.1 % (39.0-53.0) Mean Corpuscular Volume 86 fL (79-100) Mean Corpuscular Hemoglobin 28 pg (25-35) Mean Corpuscular Hemoglobin Concent 33 g/dL (31-37) Red Cell Distribution Width 14.7 % (11.5-14.5) Platelet Count 271 x10^3/uL (140-400) Neutrophils (%) (Auto) 90 % (31-73) Lymphocytes (%) (Auto) 5 % (24-48) Monocytes (%) (Auto) 5 % (0-9) Eosinophils (%) (Auto) 0 % (0-3) Basophils (%) (Auto) 0 % (0-3) Neutrophils # (Auto) 9.2 x10^3uL (1.8-7.7) Lymphocytes # (Auto) 0.5 x10^3/uL (1.0-4.8) Monocytes # (Auto) 0.5 x10^3/uL (0.0-1.1) Eosinophils # (Auto) 0.0 x10^3/uL (0.0-0.7) Basophils # (Auto) 0.0 x10^3/uL (0.0-0.2) Segmented Neutrophils % 92 % (35-66) Band Neutrophils % 1 % (0-9) Lymphocytes % 4 % (24-48) Monocytes % 3 % (0-10) Platelet Estimate Adequate (ADEQUATE) Prothrombin Time 12.8 SEC (11.7-14.0) Prothromb Time International Ratio 1.0 (0.8-1.1) Urine Collection Type Unknown Urine Color Yellow Urine Clarity Clear Urine pH 5.0 Urine Specific [place] 1.025 Urine Protein Negative mg/dL (NEG-TRACE) Urine Glucose (UA) Negative mg/dL (NEG) Urine Ketones (Stick) Negative mg/dL (NEG) Urine Blood Negative (NEG) Urine Nitrite Negative (NEG) Urine Bilirubin Negative (NEG) Urine Urobilinogen Dipstick 0.2 mg/dL (0.2 mg/dL) Urine Leukocyte Esterase Negative (NEG) Urine RBC 0 /HPF (0-2) Urine WBC 0 /HPF (0-4) Urine Squamous Epithelial Cells Few /LPF Urine Bacteria 0 /HPF (0-FEW) Urine Mucus Marked /LPF Sodium Level 138 mmol/L (136-145) Potassium Level 5.0 mmol/L (3.5-5.1) Chloride Level 98 mmol/L (98-107) Carbon Dioxide Level 28 mmol/L (21-32) Anion Gap 12 (6-14) Blood Urea Nitrogen 41 mg/dL (8-26) Creatinine 2.3 mg/dL (0.7-1.3) Estimated GFR (Cockcroft-Gault) 28.3 BUN/Creatinine Ratio 18 (6-20) Glucose Level 180 mg/dL (70-99) Calcium Level 9.2 mg/dL (8.5-10.1) Magnesium Level 2.2 mg/dL (1.8-2.4) Total Bilirubin 0.3 mg/dL (0.2-1.0) Aspartate Amino Transf (AST/SGOT) 47 U/L (15-37) Alanine Aminotransferase (ALT/SGPT) 51 U/L (16-63) Alkaline Phosphatase 63 U/L (46-116) Creatine Kinase 849 U/L (39-308) Troponin I Quantitative 0.037 ng/mL (0.000-0.055) Total Protein 7.3 g/dL (6.4-8.2) Albumin 3.7 g/dL (3.4-5.0) Albumin/Globulin Ratio 1.0 (1.0-1.7) Lipase 92 U/L (73-393) Salicylates Level < 2.8 mg/dL (2.8-20.0) Salicylate Last Dose Date Unk Salicylate Last Dose Time Unk Urine Opiates Screen Pos (NEG) Urine Methadone Screen Neg (NEG) Acetaminophen Level < 2 mcg/ml (10-30) Acetaminophen Last Dose Date Unk Acetaminophen Last Dose Time Unk Urine Barbiturates Neg (NEG) Urine Phencyclidine Screen Neg (NEG) Urine Amphetamine/Methamphetamine Neg (NEG) Urine Benzodiazepines Screen Neg (NEG) Urine Cocaine Screen Neg (NEG) Urine Cannabinoids Screen Neg (NEG) Ethyl Alcohol Level < 10 mg/dL (0-10) Urine Ethyl Alcohol Neg (NEG) O2 Saturation 89 % (92-99) Arterial Blood pH 7.26 (7.35-7.45) Arterial Blood pCO2 at Patient Temp 61 mmHg (35-46) Arterial Blood pO2 at Patient Temp 68 mmHg (65-108) Arterial Blood HCO3 27 mmol/L (21-28) 27 mmol/L (21-28) Arterial Blood Base Excess 0 mmol/L (-3-3) FiO2 36% Bedside Arterial pH 7.26 (7.35-7.45) Bedside Arterial pCO2 61 mmHg (35-45) Bedside Arterial pO2 68 mmHg (75-100) Bedside Arterial Blood O2 Sat 89 % (95-99) Bedside FiO2 36.0 Lactic Acid Level 2.0 mmol/L (0.4-2.0) VTE Prophylaxis Ordered VTE Prophylaxis Devices: Yes VTE Pharmacological Prophylaxi: Yes Assessment/Plan Assessment/Plan Hypercapnic/hypoxic respiratory failure in a super morbidly obese SABRINA, need CPAP at night Possible pickwickian syndrome CAP/atelectasis on chest x-ray History of CAD, CABG COPD flare History of sepsis/UTI History of IBS, alternating bowel movements History of alcoholism AK I on CK D/ VMN Diabetes Acute on chronic back pain-took 15 [place] in the last 12 hours because of back pain Accel hypertension Plan: ICU admit, might need BiPAP CPAP at night Pulmonary consult Labetalol pushes for accelerated hypertension Avoid nephrotoxins Recheck BMP tomorrow No more [place] for today CIWA protocol family concerned about worsening memory - claims he has been sober from 4 months alcoholism is not related to that hence requested neurology consult I have reconciled home meds sliding scale insulin Fall risk Consult physiatry regarding that acute and chronic back pain [facility] Lidoderm patch Trial of heating pad Multiple medical issues, M DM complex WILLEM CORRAL MD Sep 09, 2018 18:56
[2018-09-09 19:00] VITALS: BP 156/100
[2018-09-09] MEDS ORDERED: guaiFENesin DM 200MG/20MG 10 ML SYRUP PO PRN (19:00)
[2018-09-09] MEDS ORDERED: levOFLOXacin PER PHARMACY. MC PRN (19:00)
--- NOTE | 2018-09-09 19:42 | EKG ---
[facility] [address] [place] [address] Test Date: 2018-09-09 Test Time: 14:40:51 Pat Name: MYRON STEVENSON Department: Room: 103 1 Gender: M Pipe Fitter Supervisor Maintenance: : [id number] Requested By: POLLY PALAFOX Order Number: [id number] Reading MD: Husam Layton MD Measurements Intervals [place] Rate: 104 P: 41 MA: 154 QRS: 60 QRSD: 102 T: 94 QT: 338 QTc: 451 Interpretive Statements SINUS TACHYCARDIA PRIOR YAEL-SEPTAL INFARCT NON-SPECIFIC ST/T CHANGES Electronically Signed On 09-11-2018 10:28:40 WEB MARKETING MANAGER by Husam Layton MD
[2018-09-09 20:00] VITALS: BP 151/65
[2018-09-09] MEDS ORDERED: IPRATRPIUM/ALBUTEROL 0.5/2.5MG 3 ML NEBU. NEB SCH (20:00)
[2018-09-09 21:00] VITALS: BP 121/69
[2018-09-09] MEDS ORDERED: ATORVASTATIN CALCIUM 40 MG TABLET. PO SCH (21:00)
[2018-09-09] MEDS: PATCH REMOVAL. MC SCH (21:00)
[2018-09-09] MEDS ORDERED: INSULIN GLARGINE 300 UNITS/3 ML INSULN.PEN. SQ SCH (21:00)
[2018-09-09] MEDS: ATORVASTATIN CALCIUM 40 MG TABLET. PO SCH (21:11)
[2018-09-09] MEDS: DULoxetine HCL 30 MG CAPSULE.DR PO SCH (21:12)
[2018-09-09] MEDS: METOPROLOL TART IMMED RELEASE 25 MG TABLET. PO SCH (21:12)
[2018-09-09] MEDS: HEPARIN for SUB-Q USE 5,000 UNIT/ML VIAL. SQ SCH (21:15)
[2018-09-09] MEDS: BUDESONIDE 0.5 MG/2 ML NEBU. NEB SCH (21:20)
[2018-09-09] MEDS: IPRATRPIUM/ALBUTEROL 0.5/2.5MG 3 ML NEBU. NEB SCH (21:20)
[2018-09-09 23:00] VITALS: BP 133/75
[2018-09-10] VITALS (23 sets, daily range): BP systolic 110–208; BP diastolic 58–101
[2018-09-10] MEDS: HALOPERIDOL LACTATE 5 MG/ML VIAL. IVP PRN ×3 (01:31→17:45)
[2018-09-10] MEDS: LEVOTHYROXINE 50 MCG TABLET PO SCH (06:00)
[2018-09-10] MEDS: HEPARIN for SUB-Q USE 5,000 UNIT/ML VIAL. SQ SCH ×3 (06:03→20:49)
[2018-09-10 06:19] LABS: CALCIUM 8.9 mg/dL (8.5-10.1); GFR 74.1; POTASSIUM 4.2 mmol/L (3.5-5.1)
--- NOTE | 2018-09-10 07:07 | PDOC ---
Provider Note Provider Note [id number] acute resp fail encephalopathy ae of copd acute bronchitis see orders. JOSE BALTAZAR MD Sep 10, 2018 07:07
[2018-09-10] MEDS: PANTOPRAZOLE 40 MG TABLET.DR. PO SCH (07:30)
[2018-09-10] MEDS: FERROUS SULFATE 325 MG TABLET. PO SCH (07:30)
[2018-09-10] MEDS: ASPIRIN CHEWABLE 81 MG TABLET. PO SCH (08:00)
[2018-09-10] MEDS: INSULIN LISPRO 300 UNITS/3 ML INSULN.PEN. SQ SCH ×3 (08:00→17:00)
[2018-09-10] MEDS: IPRATRPIUM/ALBUTEROL 0.5/2.5MG 3 ML NEBU. NEB SCH ×4 (08:02→19:51)
[2018-09-10] MEDS: BUDESONIDE 0.5 MG/2 ML NEBU. NEB SCH ×2 (08:02→19:51)
[2018-09-10 08:16] LABS: BASE EXCESS ABG 5 mmol/L (-3-3); FIO2 ABG 35; HCO3 ABG 32 mmol/L (21-28); PCO2 ABG 59 mmHg (35-46); PO2 ABG 76 mmHg (65-108); SAT O2 ABG 94 % (92-99)
--- NOTE | 2018-09-10 08:32 | CONS ---
DATE OF CONSULTATION: 09/10/2018 REASON FOR CONSULTATION: I was asked to see this 67-year-old gentleman for acute respiratory failure. HISTORY OF PRESENT ILLNESS: The patient is currently on the BiPAP and is not able to give me any information. All of the information was obtained from chart and nursing staff. The patient has history of drinking. He was brought to the Emergency Room by ambulance for mental status changes. He has history of COPD, coronary artery disease and obstructive sleep apnea-hypopnea syndrome. [facility]. He has been on narcotics. He was placed on BiPAP. He was agitated, Ativan was given. He is now on BiPAP and does not follow my commands. PAST MEDICAL HISTORY: Coronary artery disease, COPD, diabetes mellitus, obstructive sleep apnea-hypopnea syndrome, hypertension. ALLERGIES: 1. PENICILLIN. 2. CELECOXIB. 3. GABAPENTIN. 4. PREGABALIN. 5. TADALAFIL. 6. TERAZOSIN. 7. VARENICLINE CURRENT MEDICATIONS: He is on Levaquin, lisinopril, Proscar, Flomax, folic acid, multivitamin, insulin, levothyroxine, heparin 5000 units subQ q.8, DuoNeb, budesonide, Coumadin. SOCIAL HISTORY: History of smoking per chart. FAMILY HISTORY: Hypertension per chart. REVIEW OF SYSTEMS: As mentioned as above. I have discussed the patient with RN, other systems otherwise negative. PHYSICAL EXAMINATION: GENERAL: This is an obese gentleman. VITAL SIGNS: His O2 saturation on BiPAP 20/6, rate of 20 and FiO2 of 40%, is 99%. Respiratory rate 26, heart rate is 65, temperature 98, blood pressure 146/79. HEENT: Normocephalic, atraumatic. Pupils equal, round, reactive to light. Has a BiPAP mask on. NECK: Short and thick. No lymphadenopathy, no thyromegaly. CARDIOVASCULAR: Regular rate and rhythm. PMI is nondisplaced. CHEST: On inspection bibasilar crackles, dullness at right base and few end expiratory wheezing. ABDOMEN: Soft and obese. Bowel sounds are good. There is no mass. EXTREMITIES: There is no edema. LYMPHATICS: There is no lymphadenopathy. NEUROLOGIC: Does not follow my commands. SKIN: Warm. LABORATORY DATA: I reviewed the following lab data: Chest x-ray shows cardiomegaly, increased interstitial marking. Question mild right lower lobe infiltrate. His urine drug screen is negative. Sodium 138, potassium 5, chloride 98, CO2 of 28, glucose 180, BUN 41, creatinine 2.3, calcium 9.2, magnesium 2.2, AST 47, ALT 51, CK 849. Troponin 0.037. WBC 10.3, hemoglobin 12.9, platelets 271. ABG: PH 7.26, pCO2 of 61, pO2 of 68 on 36% FIO2. IMPRESSION: 1. Acute hypoxemic respiratory failure, multifactorial in etiology, acute bronchitis versus pneumonia, acute exacerbation of chronic obstructive pulmonary disease, encephalopathy versus others. 2. Abnormal chest x-ray. 3. Acute exacerbation of chronic obstructive pulmonary disease. 4. Acute bronchitis versus pneumonia. 5. Encephalopathy ?etiology, could be secondary to alcohol withdrawal versus others. 6. Acute kidney injury. 7. Obstructive sleep apnea-hypopnea syndrome. 8. On anticoagulation ?reason. 9. Hypertension. PLAN AND RECOMMENDATIONS: 1. Titrate FiO2 to keep O2 saturation 91%. 2. I will do ABG. Change BiPAP setting per ABG. Continue BiPAP until respiratory status is more stable and he is more alert. 3. Avoid oversedation. 4. Continue antibiotic. 5. Start Solu-Medrol 40 mg IV every 12. 6. Monitor respiratory status very closely in ICU. 7. Agree with IV hydration. 8. Agree with neurology consult. 9. Bronchodilator. 10. Inhaled corticosteroid. 11. Follow up cultures. 12. Heparin for DVT prophylaxis. 13. Start Pepcid for stress ulcer prophylaxis. 14. The findings and recommendations were discussed with RN. Thank you very much for allowing me to participate in care of this very nice gentleman. JOSE BALTAZAR M.D. : BYRON/christiano JOB#: [id number] / [id number]
[2018-09-10] MEDS: LISINOPRIL 5 MG TABLET. PO SCH (09:00)
[2018-09-10] MEDS: DULoxetine HCL 30 MG CAPSULE.DR PO SCH ×2 (09:00→21:00)
[2018-09-10] MEDS ORDERED: NON FORMULARY ITEM (Tiotropium Bromide (Spiriva) 2 INH) IH SCH (09:00)
[2018-09-10] MEDS: MULTIVITAMIN with MINERAL TABLET. PO SCH (09:00)
[2018-09-10] MEDS: TAMSULOSIN 0.4 MG CAP.ER.24H. PO SCH (09:00)
[2018-09-10] MEDS: LIDOCAINE (700MG/PATCH) PATCH. TD SCH ×2 (09:00→14:06)
[2018-09-10] MEDS: FOLIC ACID 1 MG TABLET. PO SCH (09:00)
[2018-09-10] MEDS: THIAMINE 100 MG TABLET. PO SCH (09:00)
[2018-09-10] MEDS: FINASTERIDE 5 MG TABLET. PO SCH (09:00)
[2018-09-10] MEDS: METOPROLOL TART IMMED RELEASE 25 MG TABLET. PO SCH ×2 (09:00→21:00)
[2018-09-10 09:14] LABS: BASO # 0.1 x10^3/uL (0.0-0.2); BASO % 1 % (0-3); EOS % 1 % (0-3); HEMATOCRIT 36.1 % (39.0-53.0); HEMOGLOBIN 12.1 g/dL (13.0-17.5); LYMPH # 1.3 x10^3/uL (1.0-4.8); LYMPH % 17 % (24-48); MEAN CORPUSCULAR HEMOGLOBIN 28 pg (25-35); MEAN CORPUSCULAR HGB CONC 33 g/dL (31-37); MEAN CORPUSCULAR VOLUME 84 fL (79-100); MONO # 0.8 x10^3/uL (0.0-1.1); MONO % 10 % (0-9); NEUT # 5.6 x10^3uL (1.8-7.7); NEUT % 72 % (31-73); PLATELET COUNT 244 x10^3/uL (140-400); RED BLOOD COUNT 4.29 x10^6/uL (4.30-5.70); RED CELL DISTRIBUTION WIDTH 14.6 % (11.5-14.5); WHITE BLOOD COUNT 7.8 x10^3/uL (4.0-11.0)
--- NOTE | 2018-09-10 10:33 | PDOC ---
PROGRESS NOTES Chief Complaint Chief Complaint Hypercapnic/hypoxic respiratory failure in a super morbidly obese on NIPPV SABRINA, need CPAP at night Possible pickwickian syndrome CAP/atelectasis on chest x-ray History of CAD, CABG COPD flare History of sepsis/UTI History of IBS, alternating bowel movements History of alcoholism AK I on CK D/ VMN Diabetes Acute on chronic back pain-took 15 Fowler in the last 12 hours because of back pain Accel hypertension History of Present Illness History of Present Illness Multiple calls last night needing Ativan almost Ativan drip because of severe withdrawal from alcohols I meet again today, lots of denial I could gather-I tell her that most likely from alcohol withdrawal symptoms but she claims that patient has been sober for a few months In any case almost needed Ativan drip, needed Haldol, and now sedated calm with a sitter and on BiPAP Mittens on hand BS 90s, got lantus last night - based on his home med Too sleepy to eat breakfast today Pulmo on board ABg: pH ok, co2 60s - expected in SABRINA< sleep apnea, body habitus He also did take 15 norco in 12 hrs for his back pain - not helping Co2 retention not the easiest to deal with, needed her signature [facility] given recent multiple back imaging for his back pain - but somehow not an easy task to ask her PLAN: BIPap per pulmo- ICU care Avoid too much narcotics I will ERIK Adams make sure not being given Watch for alcohol withdrawals, CIWA Hard to deal with because gets to alcohol withdrawals then needs Ativan, then needs the BiPAP Need eventually needs to lose weight, control back/pain Discussed with If the is less cooperative, they may deal with the back issues [facility]. We will just deal with the respiratory issues while admitted here Adjust insulin, we are fearing hypoglycemia signif time dw [employer] Vitals Vitals Vital Signs Date Time Temp Pulse Resp B/P (MAP) Pulse Ox O2 Delivery O2 Flow Rate FiO2 09/10/18 10:00 69 19 169/94 (119) 98 BiPAP/CPAP 09/10/18 07:00 97.9 97.9 09/10/18 01:00 5.0 Physical Exam General: mild distress, Other (tachypneic,) Lungs: Clear, Other Abdomen: Soft, Other (pot belly) Extremities: No clubbing, No cyanosis, No edema, Normal pulses, No tenderness/ swelling Skin: No rashes Labs LABS Laboratory Tests Test 09/09/18 14:35 09/09/18 15:51 09/09/18 16:13 09/09/18 17:34 White Blood Count 10.3 x10^3/uL (4.0-11.0) Red Blood Count 4.57 x10^6/uL (4.30-5.70) Hemoglobin 12.9 g/dL (13.0-17.5) Hematocrit 39.1 % (39.0-53.0) Mean Corpuscular Volume 86 fL (79-100) Mean Corpuscular Hemoglobin 28 pg (25-35) Mean Corpuscular Hemoglobin Concent 33 g/dL (31-37) Red Cell Distribution Width 14.7 % (11.5-14.5) Platelet Count 271 x10^3/uL (140-400) Neutrophils (%) (Auto) 90 % (31-73) Lymphocytes (%) (Auto) 5 % (24-48) Monocytes (%) (Auto) 5 % (0-9) Eosinophils (%) (Auto) 0 % (0-3) Basophils (%) (Auto) 0 % (0-3) Neutrophils # (Auto) 9.2 x10^3uL (1.8-7.7) Lymphocytes # (Auto) 0.5 x10^3/uL (1.0-4.8) Monocytes # (Auto) 0.5 x10^3/uL (0.0-1.1) Eosinophils # (Auto) 0.0 x10^3/uL (0.0-0.7) Basophils # (Auto) 0.0 x10^3/uL (0.0-0.2) Segmented Neutrophils % 92 % (35-66) Band Neutrophils % 1 % (0-9) Lymphocytes % 4 % (24-48) Monocytes % 3 % (0-10) Platelet Estimate Adequate (ADEQUATE) Prothrombin Time 12.8 SEC (11.7-14.0) Prothromb Time International Ratio 1.0 (0.8-1.1) Urine Collection Type Unknown Urine Color Yellow Urine Clarity Clear Urine pH 5.0 Urine Specific [place] 1.025 Urine Protein Negative mg/dL (NEG-TRACE) Urine Glucose (UA) Negative mg/dL (NEG) Urine Ketones (Stick) Negative mg/dL (NEG) Urine Blood Negative (NEG) Urine Nitrite Negative (NEG) Urine Bilirubin Negative (NEG) Urine Urobilinogen Dipstick 0.2 mg/dL (0.2 mg/dL) Urine Leukocyte Esterase Negative (NEG) Urine RBC 0 /HPF (0-2) Urine WBC 0 /HPF (0-4) Urine Squamous Epithelial Cells Few /LPF Urine Bacteria 0 /HPF (0-FEW) Urine Mucus Marked /LPF Sodium Level 138 mmol/L (136-145) Potassium Level 5.0 mmol/L (3.5-5.1) Chloride Level 98 mmol/L (98-107) Carbon Dioxide Level 28 mmol/L (21-32) Anion Gap 12 (6-14) Blood Urea Nitrogen 41 mg/dL (8-26) Creatinine 2.3 mg/dL (0.7-1.3) Estimated GFR (Cockcroft-Gault) 28.3 BUN/Creatinine Ratio 18 (6-20) Glucose Level 180 mg/dL (70-99) Calcium Level 9.2 mg/dL (8.5-10.1) Magnesium Level 2.2 mg/dL (1.8-2.4) Total Bilirubin 0.3 mg/dL (0.2-1.0) Aspartate Amino Transf (AST/SGOT) 47 U/L (15-37) Alanine Aminotransferase (ALT/SGPT) 51 U/L (16-63) Alkaline Phosphatase 63 U/L (46-116) Creatine Kinase 849 U/L (39-308) Troponin I Quantitative 0.037 ng/mL (0.000-0.055) Total Protein 7.3 g/dL (6.4-8.2) Albumin 3.7 g/dL (3.4-5.0) Albumin/Globulin Ratio 1.0 (1.0-1.7) Lipase 92 U/L (73-393) Thyroid Stimulating Hormone (TSH) 0.859 uIU/mL (0.358-3.74) Salicylates Level < 2.8 mg/dL (2.8-20.0) Salicylate Last Dose Date Unk Salicylate Last Dose Time Unk Urine Opiates Screen Pos (NEG) Urine Methadone Screen Neg (NEG) Acetaminophen Level < 2 mcg/ml (10-30) Acetaminophen Last Dose Date Unk Acetaminophen Last Dose Time Unk Urine Barbiturates Neg (NEG) Urine Phencyclidine Screen Neg (NEG) Urine Amphetamine/Methamphetamine Neg (NEG) Urine Benzodiazepines Screen Neg (NEG) Urine Cocaine Screen Neg (NEG) Urine Cannabinoids Screen Neg (NEG) Ethyl Alcohol Level < 10 mg/dL (0-10) Urine Ethyl Alcohol Neg (NEG) O2 Saturation 89 % (92-99) Arterial Blood pH 7.26 (7.35-7.45) Arterial Blood pCO2 at Patient Temp 61 mmHg (35-46) Arterial Blood pO2 at Patient Temp 68 mmHg (65-108) Arterial Blood HCO3 27 mmol/L (21-28) 27 mmol/L (21-28) Arterial Blood Base Excess 0 mmol/L (-3-3) FiO2 36% Bedside Arterial pH 7.26 (7.35-7.45) Bedside Arterial pCO2 61 mmHg (35-45) Bedside Arterial pO2 68 mmHg (75-100) Bedside Arterial Blood O2 Sat 89 % (95-99) Bedside FiO2 36.0 Lactic Acid Level 2.0 mmol/L (0.4-2.0) Test 09/10/18 05:30 09/10/18 08:00 09/10/18 08:15 White Blood Count 7.8 x10^3/uL (4.0-11.0) Red Blood Count 4.29 x10^6/uL (4.30-5.70) Hemoglobin 12.1 g/dL (13.0-17.5) Hematocrit 36.1 % (39.0-53.0) Mean Corpuscular Volume 84 fL (79-100) Mean Corpuscular Hemoglobin 28 pg (25-35) Mean Corpuscular Hemoglobin Concent 33 g/dL (31-37) Red Cell Distribution Width 14.6 % (11.5-14.5) Platelet Count 244 x10^3/uL (140-400) Neutrophils (%) (Auto) 72 % (31-73) Lymphocytes (%) (Auto) 17 % (24-48) Monocytes (%) (Auto) 10 % (0-9) Eosinophils (%) (Auto) 1 % (0-3) Basophils (%) (Auto) 1 % (0-3) Neutrophils # (Auto) 5.6 x10^3uL (1.8-7.7) Lymphocytes # (Auto) 1.3 x10^3/uL (1.0-4.8) Monocytes # (Auto) 0.8 x10^3/uL (0.0-1.1) Eosinophils # (Auto) 0.0 x10^3/uL (0.0-0.7) Basophils # (Auto) 0.1 x10^3/uL (0.0-0.2) Sodium Level 139 mmol/L (136-145) Potassium Level 4.2 mmol/L (3.5-5.1) Chloride Level 101 mmol/L (98-107) Carbon Dioxide Level 32 mmol/L (21-32) Anion Gap 6 (6-14) Blood Urea Nitrogen 21 mg/dL (8-26) Creatinine 1.0 mg/dL (0.7-1.3) Estimated GFR (Cockcroft-Gault) 74.1 Glucose Level 120 mg/dL (70-99) Calcium Level 8.9 mg/dL (8.5-10.1) O2 Saturation 94 % (92-99) Arterial Blood pH 7.35 (7.35-7.45) Arterial Blood pCO2 at Patient Temp 59 mmHg (35-46) Arterial Blood pO2 at Patient Temp 76 mmHg (65-108) Arterial Blood HCO3 32 mmol/L (21-28) Arterial Blood Base Excess 5 mmol/L (-3-3) FiO2 35 Glucose (Fingerstick) 96 mg/dL (70-99) Review of Systems Review of Systems Sedated on BiPAP Assessment and Plan Assessmemt and Plan Problems Medical Problems: (1) Acute kidney injury Status: Acute (2) Alcohol withdrawal Status: Acute (3) Pneumonia Status: Acute (4) Rhabdomyolysis Status: Acute Comment Review of Relevant I have reviewed the following items barby (where applicable) has been applied. Labs Laboratory Tests Test 09/09/18 14:35 09/09/18 15:51 09/09/18 16:13 09/09/18 17:34 White Blood Count 10.3 x10^3/uL (4.0-11.0) Red Blood Count 4.57 x10^6/uL (4.30-5.70) Hemoglobin 12.9 g/dL (13.0-17.5) Hematocrit 39.1 % (39.0-53.0) Mean Corpuscular Volume 86 fL (79-100) Mean Corpuscular Hemoglobin 28 pg (25-35) Mean Corpuscular Hemoglobin Concent 33 g/dL (31-37) Red Cell Distribution Width 14.7 % (11.5-14.5) Platelet Count 271 x10^3/uL (140-400) Neutrophils (%) (Auto) 90 % (31-73) Lymphocytes (%) (Auto) 5 % (24-48) Monocytes (%) (Auto) 5 % (0-9) Eosinophils (%) (Auto) 0 % (0-3) Basophils (%) (Auto) 0 % (0-3) Neutrophils # (Auto) 9.2 x10^3uL (1.8-7.7) Lymphocytes # (Auto) 0.5 x10^3/uL (1.0-4.8) Monocytes # (Auto) 0.5 x10^3/uL (0.0-1.1) Eosinophils # (Auto) 0.0 x10^3/uL (0.0-0.7) Basophils # (Auto) 0.0 x10^3/uL (0.0-0.2) Segmented Neutrophils % 92 % (35-66) Band Neutrophils % 1 % (0-9) Lymphocytes % 4 % (24-48) Monocytes % 3 % (0-10) Platelet Estimate Adequate (ADEQUATE) Prothrombin Time 12.8 SEC (11.7-14.0) Prothromb Time International Ratio 1.0 (0.8-1.1) Urine Collection Type Unknown Urine Color Yellow Urine Clarity Clear Urine pH 5.0 Urine Specific [place] 1.025 Urine Protein Negative mg/dL (NEG-TRACE) Urine Glucose (UA) Negative mg/dL (NEG) Urine Ketones (Stick) Negative mg/dL (NEG) Urine Blood Negative (NEG) Urine Nitrite Negative (NEG) Urine Bilirubin Negative (NEG) Urine Urobilinogen Dipstick 0.2 mg/dL (0.2 mg/dL) Urine Leukocyte Esterase Negative (NEG) Urine RBC 0 /HPF (0-2) Urine WBC 0 /HPF (0-4) Urine Squamous Epithelial Cells Few /LPF Urine Bacteria 0 /HPF (0-FEW) Urine Mucus Marked /LPF Sodium Level 138 mmol/L (136-145) Potassium Level 5.0 mmol/L (3.5-5.1) Chloride Level 98 mmol/L (98-107) Carbon Dioxide Level 28 mmol/L (21-32) Anion Gap 12 (6-14) Blood Urea Nitrogen 41 mg/dL (8-26) Creatinine 2.3 mg/dL (0.7-1.3) Estimated GFR (Cockcroft-Gault) 28.3 BUN/Creatinine Ratio 18 (6-20) Glucose Level 180 mg/dL (70-99) Calcium Level 9.2 mg/dL (8.5-10.1) Magnesium Level 2.2 mg/dL (1.8-2.4) Total Bilirubin 0.3 mg/dL (0.2-1.0) Aspartate Amino Transf (AST/SGOT) 47 U/L (15-37) Alanine Aminotransferase (ALT/SGPT) 51 U/L (16-63) Alkaline Phosphatase 63 U/L (46-116) Creatine Kinase 849 U/L (39-308) Troponin I Quantitative 0.037 ng/mL (0.000-0.055) Total Protein 7.3 g/dL (6.4-8.2) Albumin 3.7 g/dL (3.4-5.0) Albumin/Globulin Ratio 1.0 (1.0-1.7) Lipase 92 U/L (73-393) Thyroid Stimulating Hormone (TSH) 0.859 uIU/mL (0.358-3.74) Salicylates Level < 2.8 mg/dL (2.8-20.0) Salicylate Last Dose Date Unk Salicylate Last Dose Time Unk Urine Opiates Screen Pos (NEG) Urine Methadone Screen Neg (NEG) Acetaminophen Level < 2 mcg/ml (10-30) Acetaminophen Last Dose Date Unk Acetaminophen Last Dose Time Unk Urine Barbiturates Neg (NEG) Urine Phencyclidine Screen Neg (NEG) Urine Amphetamine/Methamphetamine Neg (NEG) Urine Benzodiazepines Screen Neg (NEG) Urine Cocaine Screen Neg (NEG) Urine Cannabinoids Screen Neg (NEG) Ethyl Alcohol Level < 10 mg/dL (0-10) Urine Ethyl Alcohol Neg (NEG) O2 Saturation 89 % (92-99) Arterial Blood pH 7.26 (7.35-7.45) Arterial Blood pCO2 at Patient Temp 61 mmHg (35-46) Arterial Blood pO2 at Patient Temp 68 mmHg (65-108) Arterial Blood HCO3 27 mmol/L (21-28) 27 mmol/L (21-28) Arterial Blood Base Excess 0 mmol/L (-3-3) FiO2 36% Bedside Arterial pH 7.26 (7.35-7.45) Bedside Arterial pCO2 61 mmHg (35-45) Bedside Arterial pO2 68 mmHg (75-100) Bedside Arterial Blood O2 Sat 89 % (95-99) Bedside FiO2 36.0 Lactic Acid Level 2.0 mmol/L (0.4-2.0) Test 09/10/18 05:30 09/10/18 08:00 09/10/18 08:15 White Blood Count 7.8 x10^3/uL (4.0-11.0) Red Blood Count 4.29 x10^6/uL (4.30-5.70) Hemoglobin 12.1 g/dL (13.0-17.5) Hematocrit 36.1 % (39.0-53.0) Mean Corpuscular Volume 84 fL (79-100) Mean Corpuscular Hemoglobin 28 pg (25-35) Mean Corpuscular Hemoglobin Concent 33 g/dL (31-37) Red Cell Distribution Width 14.6 % (11.5-14.5) Platelet Count 244 x10^3/uL (140-400) Neutrophils (%) (Auto) 72 % (31-73) Lymphocytes (%) (Auto) 17 % (24-48) Monocytes (%) (Auto) 10 % (0-9) Eosinophils (%) (Auto) 1 % (0-3) Basophils (%) (Auto) 1 % (0-3) Neutrophils # (Auto) 5.6 x10^3uL (1.8-7.7) Lymphocytes # (Auto) 1.3 x10^3/uL (1.0-4.8) Monocytes # (Auto) 0.8 x10^3/uL (0.0-1.1) Eosinophils # (Auto) 0.0 x10^3/uL (0.0-0.7) Basophils # (Auto) 0.1 x10^3/uL (0.0-0.2) Sodium Level 139 mmol/L (136-145) Potassium Level 4.2 mmol/L (3.5-5.1) Chloride Level 101 mmol/L (98-107) Carbon Dioxide Level 32 mmol/L (21-32) Anion Gap 6 (6-14) Blood Urea Nitrogen 21 mg/dL (8-26) Creatinine 1.0 mg/dL (0.7-1.3) Estimated GFR (Cockcroft-Gault) 74.1 Glucose Level 120 mg/dL (70-99) Calcium Level 8.9 mg/dL (8.5-10.1) O2 Saturation 94 % (92-99) Arterial Blood pH 7.35 (7.35-7.45) Arterial Blood pCO2 at Patient Temp 59 mmHg (35-46) Arterial Blood pO2 at Patient Temp 76 mmHg (65-108) Arterial Blood HCO3 32 mmol/L (21-28) Arterial Blood Base Excess 5 mmol/L (-3-3) FiO2 35 Glucose (Fingerstick) 96 mg/dL (70-99) Laboratory Tests Test 09/09/18 14:35 09/09/18 15:51 09/09/18 16:13 09/09/18 17:34 White Blood Count 10.3 x10^3/uL (4.0-11.0) Red Blood Count 4.57 x10^6/uL (4.30-5.70) Hemoglobin 12.9 g/dL (13.0-17.5) Hematocrit 39.1 % (39.0-53.0) Mean Corpuscular Volume 86 fL (79-100) Mean Corpuscular Hemoglobin 28 pg (25-35) Mean Corpuscular Hemoglobin Concent 33 g/dL (31-37) Red Cell Distribution Width 14.7 % (11.5-14.5) Platelet Count 271 x10^3/uL (140-400) Neutrophils (%) (Auto) 90 % (31-73) Lymphocytes (%) (Auto) 5 % (24-48) Monocytes (%) (Auto) 5 % (0-9) Eosinophils (%) (Auto) 0 % (0-3) Basophils (%) (Auto) 0 % (0-3) Neutrophils # (Auto) 9.2 x10^3uL (1.8-7.7) Lymphocytes # (Auto) 0.5 x10^3/uL (1.0-4.8) Monocytes # (Auto) 0.5 x10^3/uL (0.0-1.1) Eosinophils # (Auto) 0.0 x10^3/uL (0.0-0.7) Basophils # (Auto) 0.0 x10^3/uL (0.0-0.2) Segmented Neutrophils % 92 % (35-66) Band Neutrophils % 1 % (0-9) Lymphocytes % 4 % (24-48) Monocytes % 3 % (0-10) Platelet Estimate Adequate (ADEQUATE) Prothrombin Time 12.8 SEC (11.7-14.0) Prothromb Time International Ratio 1.0 (0.8-1.1) Urine Collection Type Unknown Urine Color Yellow Urine Clarity Clear Urine pH 5.0 Urine Specific [place] 1.025 Urine Protein Negative mg/dL (NEG-TRACE) Urine Glucose (UA) Negative mg/dL (NEG) Urine Ketones (Stick) Negative mg/dL (NEG) Urine Blood Negative (NEG) Urine Nitrite Negative (NEG) Urine Bilirubin Negative (NEG) Urine Urobilinogen Dipstick 0.2 mg/dL (0.2 mg/dL) Urine Leukocyte Esterase Negative (NEG) Urine RBC 0 /HPF (0-2) Urine WBC 0 /HPF (0-4) Urine Squamous Epithelial Cells Few /LPF Urine Bacteria 0 /HPF (0-FEW) Urine Mucus Marked /LPF Sodium Level 138 mmol/L (136-145) Potassium Level 5.0 mmol/L (3.5-5.1) Chloride Level 98 mmol/L (98-107) Carbon Dioxide Level 28 mmol/L (21-32) Anion Gap 12 (6-14) Blood Urea Nitrogen 41 mg/dL (8-26) Creatinine 2.3 mg/dL (0.7-1.3) Estimated GFR (Cockcroft-Gault) 28.3 BUN/Creatinine Ratio 18 (6-20) Glucose Level 180 mg/dL (70-99) Calcium Level 9.2 mg/dL (8.5-10.1) Magnesium Level 2.2 mg/dL (1.8-2.4) Total Bilirubin 0.3 mg/dL (0.2-1.0) Aspartate Amino Transf (AST/SGOT) 47 U/L (15-37) Alanine Aminotransferase (ALT/SGPT) 51 U/L (16-63) Alkaline Phosphatase 63 U/L (46-116) Creatine Kinase 849 U/L (39-308) Troponin I Quantitative 0.037 ng/mL (0.000-0.055) Total Protein 7.3 g/dL (6.4-8.2) Albumin 3.7 g/dL (3.4-5.0) Albumin/Globulin Ratio 1.0 (1.0-1.7) Lipase 92 U/L (73-393) Thyroid Stimulating Hormone (TSH) 0.859 uIU/mL (0.358-3.74) Salicylates Level < 2.8 mg/dL (2.8-20.0) Salicylate Last Dose Date Unk Salicylate Last Dose Time Unk Urine Opiates Screen Pos (NEG) Urine Methadone Screen Neg (NEG) Acetaminophen Level < 2 mcg/ml (10-30) Acetaminophen Last Dose Date Unk Acetaminophen Last Dose Time Unk Urine Barbiturates Neg (NEG) Urine Phencyclidine Screen Neg (NEG) Urine Amphetamine/Methamphetamine Neg (NEG) Urine Benzodiazepines Screen Neg (NEG) Urine Cocaine Screen Neg (NEG) Urine Cannabinoids Screen Neg (NEG) Ethyl Alcohol Level < 10 mg/dL (0-10) Urine Ethyl Alcohol Neg (NEG) O2 Saturation 89 % (92-99) Arterial Blood pH 7.26 (7.35-7.45) Arterial Blood pCO2 at Patient Temp 61 mmHg (35-46) Arterial Blood pO2 at Patient Temp 68 mmHg (65-108) Arterial Blood HCO3 27 mmol/L (21-28) 27 mmol/L (21-28) Arterial Blood Base Excess 0 mmol/L (-3-3) FiO2 36% Bedside Arterial pH 7.26 (7.35-7.45) Bedside Arterial pCO2 61 mmHg (35-45) Bedside Arterial pO2 68 mmHg (75-100) Bedside Arterial Blood O2 Sat 89 % (95-99) Bedside FiO2 36.0 Lactic Acid Level 2.0 mmol/L (0.4-2.0) Test 09/10/18 05:30 09/10/18 08:00 09/10/18 08:15 White Blood Count 7.8 x10^3/uL (4.0-11.0) Red Blood Count 4.29 x10^6/uL (4.30-5.70) Hemoglobin 12.1 g/dL (13.0-17.5) Hematocrit 36.1 % (39.0-53.0) Mean Corpuscular Volume 84 fL (79-100) Mean Corpuscular Hemoglobin 28 pg (25-35) Mean Corpuscular Hemoglobin Concent 33 g/dL (31-37) Red Cell Distribution Width 14.6 % (11.5-14.5) Platelet Count 244 x10^3/uL (140-400) Neutrophils (%) (Auto) 72 % (31-73) Lymphocytes (%) (Auto) 17 % (24-48) Monocytes (%) (Auto) 10 % (0-9) Eosinophils (%) (Auto) 1 % (0-3) Basophils (%) (Auto) 1 % (0-3) Neutrophils # (Auto) 5.6 x10^3uL (1.8-7.7) Lymphocytes # (Auto) 1.3 x10^3/uL (1.0-4.8) Monocytes # (Auto) 0.8 x10^3/uL (0.0-1.1) Eosinophils # (Auto) 0.0 x10^3/uL (0.0-0.7) Basophils # (Auto) 0.1 x10^3/uL (0.0-0.2) Sodium Level 139 mmol/L (136-145) Potassium Level 4.2 mmol/L (3.5-5.1) Chloride Level 101 mmol/L (98-107) Carbon Dioxide Level 32 mmol/L (21-32) Anion Gap 6 (6-14) Blood Urea Nitrogen 21 mg/dL (8-26) Creatinine 1.0 mg/dL (0.7-1.3) Estimated GFR (Cockcroft-Gault) 74.1 Glucose Level 120 mg/dL (70-99) Calcium Level 8.9 mg/dL (8.5-10.1) O2 Saturation 94 % (92-99) Arterial Blood pH 7.35 (7.35-7.45) Arterial Blood pCO2 at Patient Temp 59 mmHg (35-46) Arterial Blood pO2 at Patient Temp 76 mmHg (65-108) Arterial Blood HCO3 32 mmol/L (21-28) Arterial Blood Base Excess 5 mmol/L (-3-3) FiO2 35 Glucose (Fingerstick) 96 mg/dL (70-99) Medications Current Medications Thiamine Mononitrate (Vitamin B-1) 100 mg 1X STAT PO Last administered on at 14:50; Start 09/09/18 at 14:38; Stop 09/09/18 at 14:41; Status DC Folic Acid (Folic Acid) 1 mg 1X STAT PO Last administered on 09/09/18at 14:50 ; Start 09/09/18 at 14:38; Stop 09/09/18 at 14:41; Status DC Sodium Chloride 1,000 ml @ 1,000 mls/hr 1X ONCE IV Last administered on 09/09at 14:50; Start 09/09/18 at 15:00; Stop 09/09/18 at 15:59; Status DC Labetalol HCl (Normodyne Iv Push) 20 mg 1X ONCE IVP Last administered on 09/09at 16:53; Start 09/09/18 at 17:00; Stop 09/09/18 at 17:01; Status DC Chlordiazepoxide (Librium) 25 mg PRN Q6HRS PRN PO ANXIETY / AGITATION Last administered on 09/09/18at 22:35; Start 09/09/18 at 17:00 Acetaminophen (Tylenol) 500 mg PRN Q6HRS PRN PO MILD PAIN / TEMP; Start at 17:00 Morphine Sulfate (Morphine Sulfate) 2 mg PRN Q2HR PRN IV MODERATE TO SEVERE PAIN; Start 09/09/18 at 17:00 Sodium Chloride 1,000 ml @ 100 mls/hr Q10H IV Last administered on 09/09/18at 19:30; Start 09/09/18 at 18:00 Multivitamins (Thera M Plus) 1 tab DAILY PO ; Start 09/10/18 at 09:00 Thiamine Mononitrate (Vitamin B-1) 100 mg DAILY PO ; Start 09/10/18 at 09:00 Folic Acid (Folic Acid) 1 mg DAILY PO ; Start 09/10/18 at 09:00 Labetalol HCl (Normodyne Iv Push) 20 mg PRN Q2HR PRN IVP HYPERTENSION, SEE COMMENTS; Start 09/09/18 at 17:00 Nicotine (Nicoderm Cq 21mg) 1 patch PRN DAILY PRN TD SMOKING CESSATION; Start 09/09/18 at 17:15 Oxycodone/ Acetaminophen (Percocet 5/325) 1 tab PRN Q4HRS PRN PO MODERATE PAIN ; Start 09/09/18 at 17:15 Diphenhydramine HCl (Benadryl) 25 mg PRN QHS PRN PO INSOMNIA; Start 09/09/18 at 17:15 Aspirin (Children'S Aspirin) 81 mg DAILYWBKFT PO ; Start 09/10/18 at 08:00 Atorvastatin Calcium (Lipitor) 40 mg QHS PO Last administered on 09/09/18at 21: 11; Start 09/09/18 at 21:00 Atorvastatin Calcium (Lipitor) 40 mg QHS PO ; Start 09/09/18 at 21:00; Status UNV Duloxetine HCl (Cymbalta) 30 mg BID PO Last administered on 09/09/18at 21:12; Start 09/09/18 at 21:00 Ferrous Sulfate (Feosol) 325 mg DAILYAC PO ; Start 09/10/18 at 07:30 Finasteride (Proscar) 5 mg DAILY PO ; Start 09/10/18 at 09:00 Lorazepam (Ativan) 0.5 mg PRN DAILY PRN PO ANXIETY / AGITATION; Start at 17:15 Metoprolol Tartrate (Lopressor) 25 mg BID PO Last administered on 09/09/18at 21 :12; Start 09/09/18 at 21:00 Pantoprazole Sodium (Protonix) 40 mg DAILYAC PO ; Start 09/10/18 at 07:30 Tamsulosin HCl (Flomax) 0.4 mg DAILY PO ; Start 09/10/18 at 09:00 Tramadol HCl (Ultram) 50 mg PRN Q6HRS PRN PO MILD TO MODERATE PAIN; Start at 17:15 Budesonide (Pulmicort) 0.5 mg RTBID NEB Last administered on 09/10/18at 08:02; Start 09/09/18 at 20:00 Diltiazem HCl (Cardizem 24hr Cd) 120 mg DAILY PO ; Start 09/10/18 at 09:00 Insulin Glargine (Lantus) 10 units QHS SQ Last administered on 09/09/18at 21:49 ; Start 09/09/18 at 21:00 Levothyroxine Sodium (Synthroid) 50 mcg DAILY06 PO ; Start 09/10/18 at 06:00 Lidocaine (Lidoderm) 1 patch DAILY TD ; Start 09/10/18 at 09:00 Lisinopril (Prinivil) 2.5 mg DAILY PO ; Start 09/10/18 at 09:00 Non-Formulary Medication (Tiotropium [place] (Spiriva)) 2 inh DAILY IH ; Start 09/10/18 at 09:00; Status UNV Warfarin Sodium (Coumadin) 7.5 mg DAILY16 PO ; Start 09/09/18 at 18:00 Insulin Human Lispro (HumaLOG) 0-9 UNITS TIDWMEALS SQ ; Start 09/10/18 at 08:00 Dextrose (Dextrose 50%-Water Syringe) 12.5 gm PRN Q15MIN PRN IV SEE COMMENTS; Start 09/09/18 at 17:15 Miscellaneous (Lidoderm Patch Removal) 1 ea QHS MC Last administered on at 21:00; Start 09/09/18 at 21:00 Albuterol/ Ipratropium (Duoneb) 3 ml RTQID NEB Last administered on 09/10/18at 08:02; Start 09/09/18 at 20:00 Warfarin Sodium (Coumadin Per Physician) 1 each PRN DAILY PRN MC SEE COMMENTS; Start 09/09/18 at 17:30 Sodium Chloride 1,000 ml @ 75 mls/hr [id number] IV ; Start 09/09/18 at 17:30; Stop 09/10/18 at 17:29 Lorazepam (Ativan) 2 mg 1X ONCE IV Last administered on 09/09/18at 17:30; Start 09/09/18 at 17:30; Stop 09/09/18 at 17:31; Status DC Clonidine HCl (Catapres) 0.1 mg PRN Q1HR PRN PO SBP > 180 or DBP > 100, MRX3; Start 09/09/18 at 17:30 Lorazepam (Ativan) 2 mg PRN Q15MIN PRN IV CIWA 8-14 Last administered on at 01:32; Start 09/09/18 at 17:30 Albuterol/ Ipratropium (Duoneb) 3 ml 1X ONCE NEB ; Start 09/09/18 at 17:30; Stop 09/09/18 at 17:31; Status DC Levofloxacin/ Dextrose 150 ml @ 100 mls/hr 1X ONCE IV Last administered on at 21:03; Start 09/09/18 at 17:30; Stop 09/09/18 at 18:59; Status DC Albuterol/ Ipratropium (Duoneb) 3 ml RTQID NEB ; Start 09/09/18 at 20:00; Status UNV Guaifenesin (Robitussin Dm) 10 ml PRN Q6HRS PRN PO COUGH; Start 09/09/18 at 19 :00 Levofloxacin/ Dextrose (Levaquin Per Pharmacy) 1 each PRN DAILY PRN MC SEE COMMENTS; Start 09/09/18 at 19:00 Heparin Sodium (Porcine) (Heparin Sodium) 5,000 unit Q8HRS SQ Last administered on 09/10/18at 06:03; Start 09/09/18 at 22:00 Levofloxacin/ Dextrose 50 ml @ 50 mls/hr Q24H IV ; Start 09/10/18 at 20:00 Haloperidol Lactate (Haldol Inj) 5 mg PRN Q6HRS PRN IVP AGITATION Last administered on 09/10/18at 01:31; Start 09/10/18 at 01:15 Famotidine (Pepcid Vial) 20 mg QHS IVP ; Start 09/10/18 at 21:00 Methylprednisolone Sodium Succinate (SOLU-Medrol 40MG VIAL) 40 mg Q12HR IV ; Start 09/10/18 at 09:00 Active Scripts Active Pantoprazole Sodium 40 Mg Tablet.dr 40 Mg PO DAILYAC Coumadin (Warfarin Sodium) 5 Mg Tablet 1.5 Tab PO DAILY Flomax (Tamsulosin Hcl) 0.4 Mg Cap.er.24h 0.4 Mg PO QHS Thera-M Tablet (Multivits,Ca,Minerals/Iron/Fa) 1 Each Tablet 1 Tab PO DAILY Lidoderm (Lidocaine) 700 Mg Adh..patch 1 Patch TD DAILY 12hours on, 12 hours off Metoprolol Tartrate 25 Mg Tablet 25 Mg PO BID Lisinopril 2.5 Mg Tablet 2.5 Mg PO DAILY Levemir Flextouch (Insulin Detemir) 100 Unit/1 Ml Insuln.pen 10 Units SQ QHS 30 Days Feosol (Ferrous Sulfate) 325 Mg Tablet 325 Mg PO DAILYAC Diltiazem 24HR Cd (Diltiazem Hcl) 120 Mg Cap.er.24h 120 Mg PO DAILY Children's Aspirin (Aspirin) 81 Mg Tab.chew 81 Mg PO DAILYWBKFT Atorvastatin Calcium 40 Mg Tablet 40 Mg PO QHS Reported Symbicort 80-4.5 Mcg Inhaler (Budesonide/Formoterol Fumarate) 10.2 Gm Hfa.aer.ad 2 Puff IH BID Cymbalta (Duloxetine Hcl) 30 Mg Capsule.dr 30 Mg PO BID Finasteride 5 Mg Tablet 1 Tab PO DAILY Levothyroxine Sodium 50 Mcg Tablet 1 Tab PO DAILY Tamsulosin Hcl 0.4 Mg Cap.er.24h 0.4 Mg PO DAILY Lorazepam 0.5 Mg Tablet 1 Tab PO DAILY PRN Spiriva (Tiotropium Hettinger) 18 Mcg Cap.w.dev 2 Inh IH DAILY Hydrocodone-Apap 7.5-325 (Hydrocodone Bit/Acetaminophen) 1 Each Tablet 1 Tab PO Q4HRS PRN Tramadol Hcl 50 Mg Tablet 50 Mg PO Q6H PRN Atorvastatin Calcium 40 Mg Tablet 1 Tab PO [facility] Hydrocodone-Apap 5-325 (Hydrocodone Bit/Acetaminophen) 1 Each Tablet 1 Tab PO Q4HRS PRN Metoprolol Tartrate 25 Mg Tablet 1 Tab PO BID Vitals/I & O Vital Sign - Last 24 Hours 09/09/18 09/09/18 09/09/18 09/09/18 14:36 15:00 15:38 16:04 Temp 98.2 98.2 Pulse 109 98 92 Resp 22 21 20 B/P (MAP) 142/63 (89) 149/79 (102) 161/107 (125) Pulse Ox 96 96 96 96 O2 Delivery Room Air Nasal Cannula Nasal Cannula Nasal Cannula O2 Flow Rate 4.0 4.0 4.0 09/09/18 09/09/18 09/09/18 09/09/18 16:11 16:26 16:34 16:36 Pulse 92 96 96 Resp 22 25 21 B/P (MAP) 181/120 (140) 244/127 (166) 261/137 (178) Pulse Ox 98 96 96 96 O2 Delivery Nasal Cannula Nasal Cannula BiPAP/CPAP BiPAP/CPAP O2 Flow Rate 4.0 4.0 09/09/18 09/09/18 09/09/18 09/09/18 16:44 16:53 17:30 18:15 Temp 98.0 98.0 Pulse 98 107 88 110 Resp 20 24 29 B/P (MAP) 214/105 (141) 214/105 156/84 (108) 170/80 (110) Pulse Ox 98 98 92 O2 Delivery BiPAP/CPAP BiPAP/CPAP Nasal Cannula O2 Flow Rate 4.0 09/09/18 09/09/18 09/09/18 09/09/18 19:00 20:00 20:00 21:00 Pulse 100 88 92 B/P (MAP) 156/100 (118) 151/65 (93) 121/69 (86) Pulse Ox 93 97 98 O2 Delivery BiPAP/CPAP Bi-pap BiPAP/CPAP Nasal Cannula O2 Flow Rate 5.0 09/09/18 09/09/18 09/09/18 09/09/18 21:12 21:20 21:22 22:00 Pulse 98 110 B/P (MAP) 140/80 Pulse Ox 94 94 96 O2 Delivery Nasal Cannula Nasal Cannula BiPAP/CPAP O2 Flow Rate 5.0 5.0 09/09/18 09/10/18 09/10/18 09/10/18 23:00 00:00 00:05 01:00 Temp 98.9 98.9 Pulse 84 86 82 Resp 26 26 B/P (MAP) 133/75 (94) 113/83 (93) 147/82 (103) Pulse Ox 94 94 94 O2 Delivery Nasal Cannula Nasal Cannula Nasal Cannula Nasal Cannula O2 Flow Rate 5.0 5.0 4.0 5.0 09/10/18 09/10/18 09/10/18 09/10/18 01:56 03:00 03:32 04:00 Temp 98.0 98.0 Pulse 88 75 68 Resp 26 26 22 B/P (MAP) 136/82 (100) 110/59 (76) 127/73 (91) Pulse Ox 97 95 96 98 O2 Delivery BiPAP/CPAP BiPAP/CPAP BiPAP/CPAP BiPAP/CPAP 09/10/18 09/10/18 09/10/18 09/10/18 04:15 05:00 05:19 06:00 Pulse 72 65 Resp 26 20 B/P (MAP) 140/69 (92) 146/79 (101) Pulse Ox 98 97 98 O2 Delivery Bi-pap BiPAP/CPAP BiPAP/CPAP BiPAP/CPAP 09/10/18 09/10/18 09/10/18 09/10/18 07:00 07:55 08:00 08:00 Temp 97.9 97.9 Pulse 65 66 Resp 20 20 B/P (MAP) 156/78 (104) 145/81 (102) Pulse Ox 98 97 98 O2 Delivery BiPAP/CPAP BiPAP/CPAP Bi-pap BiPAP/CPAP 09/10/18 09/10/18 09/10/18 09:00 09:55 10:00 Pulse 68 69 Resp 21 19 B/P (MAP) 154/88 (110) 169/94 (119) Pulse Ox 99 99 98 O2 Delivery BiPAP/CPAP BiPAP/CPAP BiPAP/CPAP Intake and Output 09/09/18 09/09/18 09/10/18 15:00 23:00 07:00 Intake Total 1000 ml 660 ml Output Total 550 ml 1345 ml Balance 450 ml -685 ml WILLEM CORRAL MD Sep 10, 2018 10:32
[2018-09-10] MEDS ORDERED: LORazepam 0.5 MG TABLET PO PRN (10:45)
[2018-09-10] MEDS ORDERED: chlordiazePOXIDE HCL 25 MG CAPSULE PO PRN (10:45)
[2018-09-10] MEDS ORDERED: IV NORMAL SALINE 500ML BAG 500 ML IV PRN (13:30)
[2018-09-10] MEDS ORDERED: ATROPINE 0.5 MG/5 ML DISP.SYRINGE. IV PRN (13:30)
[2018-09-10] MEDS: DEXMEDETOMIDINE 200 MCG in IV NORMAL SALINE 50ML 48 ML IV PRN ×10 (13:46→23:38)
[2018-09-10] MEDS: methylPREDNISolone SOD SUCC PF 40 MG/ML VIAL. IV SCH ×2 (14:05→20:51)
[2018-09-10] MEDS: WARFARIN 7.5 MG TABLET. PO SCH (16:00)
[2018-09-10] MEDS: PATCH REMOVAL. MC SCH (20:49)
[2018-09-10] MEDS: FAMOTIDINE 20 MG/2 ML VIAL IVP SCH (20:49)
[2018-09-10] MEDS: ATORVASTATIN CALCIUM 40 MG TABLET. PO SCH (21:00)
[2018-09-10] MEDS: LABETALOL 20 MG/4 ML DISP.SYRIN. IVP PRN (21:57)
[2018-09-11] VITALS (23 sets, daily range): BP systolic 143–202; BP diastolic 72–102
[2018-09-11] MEDS: HALOPERIDOL LACTATE 5 MG/ML VIAL. IVP PRN ×4 (00:23→22:29)
[2018-09-11] MEDS: DEXMEDETOMIDINE 200 MCG in IV NORMAL SALINE 50ML 48 ML IV PRN ×20 (00:25→23:17)
[2018-09-11] MEDS: LABETALOL 20 MG/4 ML DISP.SYRIN. IVP PRN ×5 (00:42→23:18)
[2018-09-11] MEDS: MORPHINE SULFATE 4 MG/ML VIAL. IV PRN ×6 (01:05→23:18)
[2018-09-11] MEDS: ENALAPRILAT 1.25 MG/ML VIAL. IVP PRN ×5 (02:57→21:17)
[2018-09-11] MEDS: LEVOTHYROXINE 50 MCG TABLET PO SCH (05:23)
[2018-09-11] MEDS: HEPARIN for SUB-Q USE 5,000 UNIT/ML VIAL. SQ SCH ×3 (05:48→21:10)
[2018-09-11 06:05] LABS: CALCIUM 8.8 mg/dL (8.5-10.1); GFR 74.1; MAGNESIUM 1.6 mg/dL (1.8-2.4)
[2018-09-11] MEDS: FERROUS SULFATE 325 MG TABLET. PO SCH (07:30)
[2018-09-11] MEDS: PANTOPRAZOLE 40 MG TABLET.DR. PO SCH (07:30)
[2018-09-11] MEDS: methylPREDNISolone SOD SUCC PF 40 MG/ML VIAL. IV SCH ×2 (07:39→21:18)
[2018-09-11] MEDS: ASPIRIN CHEWABLE 81 MG TABLET. PO SCH (08:00)
[2018-09-11] MEDS: INSULIN LISPRO 300 UNITS/3 ML INSULN.PEN. SQ SCH ×3 (08:00→17:41)
[2018-09-11 08:29] LABS: PCO2 IS ARTERIAL 61 mmHg (35-45)
[2018-09-11] MEDS: IPRATRPIUM/ALBUTEROL 0.5/2.5MG 3 ML NEBU. NEB SCH ×4 (08:48→19:48)
[2018-09-11] MEDS: BUDESONIDE 0.5 MG/2 ML NEBU. NEB SCH ×2 (08:49→19:48)
[2018-09-11] MEDS: MULTIVITAMIN with MINERAL TABLET. PO SCH (09:00)
[2018-09-11] MEDS: FOLIC ACID 1 MG TABLET. PO SCH (09:00)
[2018-09-11] MEDS: FINASTERIDE 5 MG TABLET. PO SCH (09:00)
[2018-09-11] MEDS: METOPROLOL TART IMMED RELEASE 25 MG TABLET. PO SCH (09:00)
[2018-09-11] MEDS: LISINOPRIL 5 MG TABLET. PO SCH (09:00)
[2018-09-11] MEDS: TAMSULOSIN 0.4 MG CAP.ER.24H. PO SCH (09:00)
[2018-09-11] MEDS: THIAMINE 100 MG TABLET. PO SCH (09:00)
[2018-09-11] MEDS: DULoxetine HCL 30 MG CAPSULE.DR PO SCH (09:00)
[2018-09-11] MEDS ORDERED: GEMF600T8 PO (09:29)
[2018-09-11] MEDS ORDERED: DILT240C2 PO (09:29)
[2018-09-11] MEDS ORDERED: METH-37 PO (09:29)
[2018-09-11] MEDS ORDERED: GABA600T2 PO (09:29)
[2018-09-11] MEDS ORDERED: FAMO-63 PO (09:29)
[2018-09-11] MEDS ORDERED: NIAC500T PO (09:29)
[2018-09-11] MEDS ORDERED: VANCOMYCIN 2 GM in IV NORMAL SALINE 500ML BAG 500 ML IV ONE (09:30)
[2018-09-11] MEDS ORDERED: INSU100V11 IJ (09:38)
[2018-09-11] MEDS ORDERED: MIRT45TA58 PO (09:38)
[2018-09-11] MEDS ORDERED: GLIP5TAB10 PO (09:38)
[2018-09-11] MEDS ORDERED: CHOL10003 PO (09:38)
[2018-09-11] MEDS ORDERED: METF10007 PO (09:38)
[2018-09-11] MEDS ORDERED: NITR0.4T22 SL (09:38)
[2018-09-11] MEDS ORDERED: VENTOLIN HFA18 GM INH (09:38)
[2018-09-11] MEDS ORDERED: FLUO20CA8 PO (09:38)
[2018-09-11] MEDS ORDERED: CYAN10005 PO (09:38)
[2018-09-11] MEDS ORDERED: INSU100V8 SQ (09:38)
[2018-09-11] MEDS: LIDOCAINE (700MG/PATCH) PATCH. TD SCH (09:43)
[2018-09-11] MEDS ORDERED: DOXYCYCLINE HYCLATE 100 MG TABLET PO SCH (10:00)
[2018-09-11] MEDS: CEFEPIME HCL IV Push 1 GM VIAL. IVP SCH ×2 (10:01→17:41)
--- NOTE | 2018-09-11 10:03 | PDOC ---
PULMONARY PROGRESS NOTES Subjective CONFUSED ON BIPAP Vitals Vital Signs Date Time Temp Pulse Resp B/P (MAP) Pulse Ox O2 Delivery O2 Flow Rate FiO2 09/11/18 09:00 75 29 200/90 (126) 97 BiPAP/CPAP 09/11/18 07:00 100.1 100.1 09/10/18 13:00 4.0 General: Confused Lungs: Crackles Cardiovascular: S1, S2 Abdomen: Soft, Other (OBESE) Extremities: Other (EDEMA) Skin: Warm Labs Laboratory Tests Test 09/09/18 14:35 09/09/18 16:13 09/09/18 17:34 09/09/18 18:00 White Blood Count 10.3 x10^3/uL (4.0-11.0) Red Blood Count 4.57 x10^6/uL (4.30-5.70) Hemoglobin 12.9 g/dL (13.0-17.5) Hematocrit 39.1 % (39.0-53.0) Mean Corpuscular Volume 86 fL (79-100) Mean Corpuscular Hemoglobin 28 pg (25-35) Mean Corpuscular Hemoglobin Concent 33 g/dL (31-37) Red Cell Distribution Width 14.7 % (11.5-14.5) Platelet Count 271 x10^3/uL (140-400) Neutrophils (%) (Auto) 90 % (31-73) Lymphocytes (%) (Auto) 5 % (24-48) Monocytes (%) (Auto) 5 % (0-9) Eosinophils (%) (Auto) 0 % (0-3) Basophils (%) (Auto) 0 % (0-3) Neutrophils # (Auto) 9.2 x10^3uL (1.8-7.7) Lymphocytes # (Auto) 0.5 x10^3/uL (1.0-4.8) Monocytes # (Auto) 0.5 x10^3/uL (0.0-1.1) Eosinophils # (Auto) 0.0 x10^3/uL (0.0-0.7) Basophils # (Auto) 0.0 x10^3/uL (0.0-0.2) Segmented Neutrophils % 92 % (35-66) Band Neutrophils % 1 % (0-9) Lymphocytes % 4 % (24-48) Monocytes % 3 % (0-10) Platelet Estimate Adequate (ADEQUATE) Prothrombin Time 12.8 SEC (11.7-14.0) Prothromb Time International Ratio 1.0 (0.8-1.1) Urine Collection Type Unknown Urine Color Yellow Urine Clarity Clear Urine pH 5.0 Urine Specific [place] 1.025 Urine Protein Negative mg/dL (NEG-TRACE) Urine Glucose (UA) Negative mg/dL (NEG) Urine Ketones (Stick) Negative mg/dL (NEG) Urine Blood Negative (NEG) Urine Nitrite Negative (NEG) Urine Bilirubin Negative (NEG) Urine Urobilinogen Dipstick 0.2 mg/dL (0.2 mg/dL) Urine Leukocyte Esterase Negative (NEG) Urine RBC 0 /HPF (0-2) Urine WBC 0 /HPF (0-4) Urine Squamous Epithelial Cells Few /LPF Urine Bacteria 0 /HPF (0-FEW) Urine Mucus Marked /LPF Sodium Level 138 mmol/L (136-145) Potassium Level 5.0 mmol/L (3.5-5.1) Chloride Level 98 mmol/L (98-107) Carbon Dioxide Level 28 mmol/L (21-32) Anion Gap 12 (6-14) Blood Urea Nitrogen 41 mg/dL (8-26) Creatinine 2.3 mg/dL (0.7-1.3) Estimated GFR (Cockcroft-Gault) 28.3 BUN/Creatinine Ratio 18 (6-20) Glucose Level 180 mg/dL (70-99) Calcium Level 9.2 mg/dL (8.5-10.1) Magnesium Level 2.2 mg/dL (1.8-2.4) Total Bilirubin 0.3 mg/dL (0.2-1.0) Aspartate Amino Transf (AST/SGOT) 47 U/L (15-37) Alanine Aminotransferase (ALT/SGPT) 51 U/L (16-63) Alkaline Phosphatase 63 U/L (46-116) Creatine Kinase 849 U/L (39-308) Troponin I Quantitative 0.037 ng/mL (0.000-0.055) Total Protein 7.3 g/dL (6.4-8.2) Albumin 3.7 g/dL (3.4-5.0) Albumin/Globulin Ratio 1.0 (1.0-1.7) Lipase 92 U/L (73-393) Thyroid Stimulating Hormone (TSH) 0.859 uIU/mL (0.358-3.74) Salicylates Level < 2.8 mg/dL (2.8-20.0) Salicylate Last Dose Date Unk Salicylate Last Dose Time Unk Urine Opiates Screen Pos (NEG) Urine Methadone Screen Neg (NEG) Acetaminophen Level < 2 mcg/ml (10-30) Acetaminophen Last Dose Date Unk Acetaminophen Last Dose Time Unk Urine Barbiturates Neg (NEG) Urine Phencyclidine Screen Neg (NEG) Urine Amphetamine/Methamphetamine Neg (NEG) Urine Benzodiazepines Screen Neg (NEG) Urine Cocaine Screen Neg (NEG) Urine Cannabinoids Screen Neg (NEG) Ethyl Alcohol Level < 10 mg/dL (0-10) Urine Ethyl Alcohol Neg (NEG) Bedside Arterial pH 7.26 (7.35-7.45) Bedside Arterial pCO2 61 mmHg (35-45) Bedside Arterial pO2 68 mmHg (75-100) Arterial Blood HCO3 27 mmol/L (21-28) Bedside Arterial Blood O2 Sat 89 % (95-99) Bedside FiO2 36.0 Lactic Acid Level 2.0 mmol/L (0.4-2.0) Nasal Screen MRSA (PCR) Negative (Negative) Test 09/10/18 05:30 09/10/18 08:00 09/10/18 08:15 09/10/18 14:04 White Blood Count 7.8 x10^3/uL (4.0-11.0) Red Blood Count 4.29 x10^6/uL (4.30-5.70) Hemoglobin 12.1 g/dL (13.0-17.5) Hematocrit 36.1 % (39.0-53.0) Mean Corpuscular Volume 84 fL (79-100) Mean Corpuscular Hemoglobin 28 pg (25-35) Mean Corpuscular Hemoglobin Concent 33 g/dL (31-37) Red Cell Distribution Width 14.6 % (11.5-14.5) Platelet Count 244 x10^3/uL (140-400) Neutrophils (%) (Auto) 72 % (31-73) Lymphocytes (%) (Auto) 17 % (24-48) Monocytes (%) (Auto) 10 % (0-9) Eosinophils (%) (Auto) 1 % (0-3) Basophils (%) (Auto) 1 % (0-3) Neutrophils # (Auto) 5.6 x10^3uL (1.8-7.7) Lymphocytes # (Auto) 1.3 x10^3/uL (1.0-4.8) Monocytes # (Auto) 0.8 x10^3/uL (0.0-1.1) Eosinophils # (Auto) 0.0 x10^3/uL (0.0-0.7) Basophils # (Auto) 0.1 x10^3/uL (0.0-0.2) Sodium Level 139 mmol/L (136-145) Potassium Level 4.2 mmol/L (3.5-5.1) Chloride Level 101 mmol/L (98-107) Carbon Dioxide Level 32 mmol/L (21-32) Anion Gap 6 (6-14) Blood Urea Nitrogen 21 mg/dL (8-26) Creatinine 1.0 mg/dL (0.7-1.3) Estimated GFR (Cockcroft-Gault) 74.1 Glucose Level 120 mg/dL (70-99) Calcium Level 8.9 mg/dL (8.5-10.1) O2 Saturation 94 % (92-99) Arterial Blood pH 7.35 (7.35-7.45) Arterial Blood pCO2 at Patient Temp 59 mmHg (35-46) Arterial Blood pO2 at Patient Temp 76 mmHg (65-108) Arterial Blood HCO3 32 mmol/L (21-28) Arterial Blood Base Excess 5 mmol/L (-3-3) FiO2 35 Glucose (Fingerstick) 96 mg/dL (70-99) 124 mg/dL (70-99) Test 09/10/18 17:55 09/11/18 05:33 Glucose (Fingerstick) 196 mg/dL (70-99) Sodium Level 138 mmol/L (136-145) Potassium Level 5.0 mmol/L (3.5-5.1) Chloride Level 101 mmol/L (98-107) Carbon Dioxide Level 28 mmol/L (21-32) Anion Gap 9 (6-14) Blood Urea Nitrogen 19 mg/dL (8-26) Creatinine 1.0 mg/dL (0.7-1.3) Estimated GFR (Cockcroft-Gault) 74.1 Glucose Level 173 mg/dL (70-99) Calcium Level 8.8 mg/dL (8.5-10.1) Magnesium Level 1.6 mg/dL (1.8-2.4) Laboratory Tests Test 09/10/18 14:04 09/10/18 17:55 09/11/18 05:33 Glucose (Fingerstick) 124 mg/dL (70-99) 196 mg/dL (70-99) Sodium Level 138 mmol/L (136-145) Potassium Level 5.0 mmol/L (3.5-5.1) Chloride Level 101 mmol/L (98-107) Carbon Dioxide Level 28 mmol/L (21-32) Anion Gap 9 (6-14) Blood Urea Nitrogen 19 mg/dL (8-26) Creatinine 1.0 mg/dL (0.7-1.3) Estimated GFR (Cockcroft-Gault) 74.1 Glucose Level 173 mg/dL (70-99) Calcium Level 8.8 mg/dL (8.5-10.1) Magnesium Level 1.6 mg/dL (1.8-2.4) Medications Active Scripts Medications Dose Route/Sig Max Daily Dose Days Date Category Dose Instructions Ventolin Hfa Inhaler (Albuterol Sulfate) 18 Gm Hfa.aer.ad 2 Puff INH Q4HRS 09/11/18 Reported Mirtazapine 45 Mg Tablet 1 Tab PO QHS 09/11/18 Reported Glipizide 5 Mg Tablet 1 Tab PO BID 09/11/18 Reported Metformin Hcl 1,000 Mg Tablet 1,000 Mg PO BIDWMEALS 09/11/18 Reported Lantus (Insulin Glargine,Hum.rec.anlog) 100 Unit/1 Ml Vial 50 Unit SQ HS 09/11/18 Reported NITROGLYCERIN SubLingual (Nitroglycerin) 0.4 Mg Tab.subl 0.4 Mg SL PRN Q5MIN PRN 09/11/18 Reported Fluoxetine Hcl 20 Mg Capsule 3 Cap PO DAILY 09/11/18 Reported Novolin R (Insulin Regular, Human) 100 Unit/1 Ml Vial 100 Unit IJ QIDACHS 09/11/18 Reported Vitamin D3 (Cholecalciferol (Vitamin D3)) 1,000 Unit Tablet 1 Tab PO TID 09/11/18 Reported Vitamin B-12 (Cyanocobalamin (Vitamin B-12)) 1,000 Mcg Tablet 1 Tab PO DAILY 09/11/18 Reported Gemfibrozil 600 Mg Tablet 0.5 Tab PO BID 09/11/18 Reported Pepcid (Famotidine) 20 Mg Tablet 10 Mg PO BID 09/11/18 Reported Cardizem Cd (Diltiazem Hcl) 240 Mg Cap.er.24h 1 Cap PO DAILY 09/11/18 Reported Robaxin (Methocarbamol) 500 Mg Tablet 1 Tab PO BID PRN 09/11/18 Reported Niaspan (Niacin) 500 Mg Tab.er.24h 1 Tab PO QHS 09/11/18 Reported Gabapentin 600 Mg Tablet 300 Mg PO QID 09/11/18 Reported Pantoprazole Sodium 40 Mg Tablet.dr 40 Mg PO DAILYAC 07/16/16 Rx Lidoderm (Lidocaine) 700 Mg Adh..patch 1 Patch TD DAILY 07/16/16 Rx 12hours on, 12 hours off Lisinopril 2.5 Mg Tablet 2.5 Mg PO DAILY 07/16/16 Rx Feosol (Ferrous Sulfate) 325 Mg Tablet 325 Mg PO DAILYAC 07/16/16 Rx Children's Aspirin (Aspirin) 81 Mg Tab.chew 81 Mg PO DAILYWBKFT 07/16/16 Rx Symbicort 80-4.5 Mcg Inhaler (Budesonide/Formoterol Fumarate) 10.2 Gm Hfa.aer.ad 2 Puff IH BID 07/09/16 Reported Finasteride 5 Mg Tablet 1 Tab PO DAILY 07/09/16 Reported Levothyroxine Sodium 50 Mcg Tablet 1 Tab PO DAILY 07/09/16 Reported Tamsulosin Hcl 0.4 Mg Cap.er.24h 0.4 Mg PO BID 07/09/16 Reported Spiriva (Tiotropium [place]) 18 Mcg Cap.w.dev 2 Inh IH DAILY 07/09/16 Reported Hydrocodone-Apap 7.5-325 (Hydrocodone Bit/Acetaminophen) 1 Each Tablet 1 Tab PO Q4HRS PRN 07/09/16 Reported Metoprolol Tartrate 25 Mg Tablet 1 Tab PO BID 07/09/16 Reported Comments IMPRESSION: Mild patchy opacities in the right lung base may be secondary to subsegmental atelectasis or pneumonia. Findings of COPD. Impression . IMPRESSION: 1. Acute hypoxemic respiratory failure, multifactorial in etiolog 2. Abnormal chest x-ray/PNEUMONIA 3. Acute exacerbation of chronic obstructive pulmonary disease. 4. Acute bronchitis versus pneumonia. 5. METABOLIC/TOXIC Encephalopathy POA 6. Acute kidney injury. 7. Obstructive sleep apnea-hypopnea syndrome. 8. CAD S/P CABG 9. Hypertension. 10. BACTEREMIA/SEPSIS PER ID Plan . D/W FAMILY WILL SUPPORT D/W CARD CONTINUE BIPAP DIFFICULT SITUATION WITH ENCEPHALOPATHY NEED TO FIND A BALANCE WITH CARCOTIS/SEDATION STEROIDS ANTIBX CCT 30 MIN ARLYN FENTON MD Sep 11, 2018 10:03
[2018-09-11] MEDS: VANCOMYCIN PER PHARMACY MC PRN (11:19)
--- NOTE | 2018-09-11 11:38 | PDOC ---
Infectious Disease Note Vital Sign Vital Signs Vital Signs Date Time Temp Pulse Resp B/P (MAP) Pulse Ox O2 Delivery O2 Flow Rate FiO2 09/11/18 10:48 77 201/89 09/11/18 10:00 28 94 BiPAP/CPAP 09/11/18 07:00 100.1 100.1 09/10/18 13:00 4.0 Labs Lab Laboratory Tests Test 09/10/18 14:04 09/10/18 17:55 09/11/18 05:33 Glucose (Fingerstick) 124 mg/dL (70-99) 196 mg/dL (70-99) Prothrombin Time 14.0 SEC (11.7-14.0) Prothromb Time International Ratio 1.1 (0.8-1.1) Activated Partial Thromboplast Time 28 SEC (24-38) Sodium Level 138 mmol/L (136-145) Potassium Level 5.0 mmol/L (3.5-5.1) Chloride Level 101 mmol/L (98-107) Carbon Dioxide Level 28 mmol/L (21-32) Anion Gap 9 (6-14) Blood Urea Nitrogen 19 mg/dL (8-26) Creatinine 1.0 mg/dL (0.7-1.3) Estimated GFR (Cockcroft-Gault) 74.1 Glucose Level 173 mg/dL (70-99) Calcium Level 8.8 mg/dL (8.5-10.1) Magnesium Level 1.6 mg/dL (1.8-2.4) Micro Microbiology 09/09/18 Blood Culture - Preliminary, Resulted NO GROWTH AFTER 1 DAY Objective Assessment Fever Bacteremia ? sepsis 2/ POA - GPC PCN allergy - has had amox H/o SVT Acute Resp failure - ? CAP vs AECOPD DO - hydrocodone Hematuria H/o Compression fractures h/o ETOH abuse Plan Plan of Care Started Vanc D/c Levoflox with h/o SVT and on Coumadin per chart but in discussion with family he has not been on coumadin recently - did order coags Added Doxy and cefepime Now on Solumedrol F/u labs and cults may need MRI of Back Await Neuro eval Consult Cardilogy eval Add sed rate/procalcitonin Central line [facility]ed [facility] d/w family 35 mins Thank you # [id number] YAAKOV DYER MD Sep 11, 2018 11:38
--- NOTE | 2018-09-11 12:12 | PDOC ---
PROGRESS NOTES Chief Complaint Chief Complaint Hypercapnic/hypoxic respiratory failure in a super morbidly obese on NIPPV SABRINA, need CPAP at night Possible pickwickian syndrome CAP/atelectasis on chest x-ray History of CAD, CABG COPD flare History of sepsis/UTI History of IBS, alternating bowel movements History of alcoholism AK I on CK D/ VMN Diabetes Acute on chronic back pain-took 15 [place] in the last 12 hours because of back pain Accel hypertension History of Present Illness History of Present Illness Patient seen and examined at bedside. Spoke to nursing at bedside. Vitals Vitals Vital Signs Date Time Temp Pulse Resp B/P (MAP) Pulse Ox O2 Delivery O2 Flow Rate FiO2 09/11/18 11:33 97 BiPAP/CPAP 09/11/18 11:00 78 26 197/94 (128) 09/11/18 07:00 100.1 100.1 09/10/18 13:00 4.0 Physical Exam General: mild distress, Other (tachypneic, unable to converse with us) Heart: Regular rate, Normal S1 Lungs: Clear, Other Abdomen: Soft, Other (pot belly) Extremities: No clubbing, No cyanosis, No edema, Normal pulses, No tenderness/ swelling Skin: No rashes Labs LABS Laboratory Tests Test 09/10/18 14:04 09/10/18 17:55 09/11/18 05:33 09/11/18 11:23 Glucose (Fingerstick) 124 mg/dL (70-99) 196 mg/dL (70-99) 153 mg/dL (70-99) Prothrombin Time 14.0 SEC (11.7-14.0) Prothromb Time International Ratio 1.1 (0.8-1.1) Activated Partial Thromboplast Time 28 SEC (24-38) Sodium Level 138 mmol/L (136-145) Potassium Level 5.0 mmol/L (3.5-5.1) Chloride Level 101 mmol/L (98-107) Carbon Dioxide Level 28 mmol/L (21-32) Anion Gap 9 (6-14) Blood Urea Nitrogen 19 mg/dL (8-26) Creatinine 1.0 mg/dL (0.7-1.3) Estimated GFR (Cockcroft-Gault) 74.1 Glucose Level 173 mg/dL (70-99) Calcium Level 8.8 mg/dL (8.5-10.1) Magnesium Level 1.6 mg/dL (1.8-2.4) Review of Systems Review of Systems unable to obtain Assessment and Plan Assessmemt and Plan Hypercapnic/hypoxic respiratory failure in a super morbidly obese on NIPPV SABRINA, need CPAP at night Possible pickwickian syndrome CAP/atelectasis on chest x-ray History of CAD, CABG COPD flare History of sepsis/UTI History of IBS, alternating bowel movements History of alcoholism AK I on CK D/ VMN Diabetes Acute on chronic back pain-took 15 [place] in the last 12 hours because of back pain Accel hypertension Plan Med Reconciliation ID has been consulted Banana Bag 2 gm of MgSO4 PICC Line DVT Prophylaxis Comment Review of Relevant I have reviewed the following items barby (where applicable) has been applied. Labs Laboratory Tests Test 09/09/18 14:35 09/09/18 16:13 09/09/18 17:34 09/09/18 18:00 White Blood Count 10.3 x10^3/uL (4.0-11.0) Red Blood Count 4.57 x10^6/uL (4.30-5.70) Hemoglobin 12.9 g/dL (13.0-17.5) Hematocrit 39.1 % (39.0-53.0) Mean Corpuscular Volume 86 fL (79-100) Mean Corpuscular Hemoglobin 28 pg (25-35) Mean Corpuscular Hemoglobin Concent 33 g/dL (31-37) Red Cell Distribution Width 14.7 % (11.5-14.5) Platelet Count 271 x10^3/uL (140-400) Neutrophils (%) (Auto) 90 % (31-73) Lymphocytes (%) (Auto) 5 % (24-48) Monocytes (%) (Auto) 5 % (0-9) Eosinophils (%) (Auto) 0 % (0-3) Basophils (%) (Auto) 0 % (0-3) Neutrophils # (Auto) 9.2 x10^3uL (1.8-7.7) Lymphocytes # (Auto) 0.5 x10^3/uL (1.0-4.8) Monocytes # (Auto) 0.5 x10^3/uL (0.0-1.1) Eosinophils # (Auto) 0.0 x10^3/uL (0.0-0.7) Basophils # (Auto) 0.0 x10^3/uL (0.0-0.2) Segmented Neutrophils % 92 % (35-66) Band Neutrophils % 1 % (0-9) Lymphocytes % 4 % (24-48) Monocytes % 3 % (0-10) Platelet Estimate Adequate (ADEQUATE) Prothrombin Time 12.8 SEC (11.7-14.0) Prothromb Time International Ratio 1.0 (0.8-1.1) Urine Collection Type Unknown Urine Color Yellow Urine Clarity Clear Urine pH 5.0 Urine Specific [place] 1.025 Urine Protein Negative mg/dL (NEG-TRACE) Urine Glucose (UA) Negative mg/dL (NEG) Urine Ketones (Stick) Negative mg/dL (NEG) Urine Blood Negative (NEG) Urine Nitrite Negative (NEG) Urine Bilirubin Negative (NEG) Urine Urobilinogen Dipstick 0.2 mg/dL (0.2 mg/dL) Urine Leukocyte Esterase Negative (NEG) Urine RBC 0 /HPF (0-2) Urine WBC 0 /HPF (0-4) Urine Squamous Epithelial Cells Few /LPF Urine Bacteria 0 /HPF (0-FEW) Urine Mucus Marked /LPF Sodium Level 138 mmol/L (136-145) Potassium Level 5.0 mmol/L (3.5-5.1) Chloride Level 98 mmol/L (98-107) Carbon Dioxide Level 28 mmol/L (21-32) Anion Gap 12 (6-14) Blood Urea Nitrogen 41 mg/dL (8-26) Creatinine 2.3 mg/dL (0.7-1.3) Estimated GFR (Cockcroft-Gault) 28.3 BUN/Creatinine Ratio 18 (6-20) Glucose Level 180 mg/dL (70-99) Calcium Level 9.2 mg/dL (8.5-10.1) Magnesium Level 2.2 mg/dL (1.8-2.4) Total Bilirubin 0.3 mg/dL (0.2-1.0) Aspartate Amino Transf (AST/SGOT) 47 U/L (15-37) Alanine Aminotransferase (ALT/SGPT) 51 U/L (16-63) Alkaline Phosphatase 63 U/L (46-116) Creatine Kinase 849 U/L (39-308) Troponin I Quantitative 0.037 ng/mL (0.000-0.055) Total Protein 7.3 g/dL (6.4-8.2) Albumin 3.7 g/dL (3.4-5.0) Albumin/Globulin Ratio 1.0 (1.0-1.7) Lipase 92 U/L (73-393) Thyroid Stimulating Hormone (TSH) 0.859 uIU/mL (0.358-3.74) Salicylates Level < 2.8 mg/dL (2.8-20.0) Salicylate Last Dose Date Unk Salicylate Last Dose Time Unk Urine Opiates Screen Pos (NEG) Urine Methadone Screen Neg (NEG) Acetaminophen Level < 2 mcg/ml (10-30) Acetaminophen Last Dose Date Unk Acetaminophen Last Dose Time Unk Urine Barbiturates Neg (NEG) Urine Phencyclidine Screen Neg (NEG) Urine Amphetamine/Methamphetamine Neg (NEG) Urine Benzodiazepines Screen Neg (NEG) Urine Cocaine Screen Neg (NEG) Urine Cannabinoids Screen Neg (NEG) Ethyl Alcohol Level < 10 mg/dL (0-10) Urine Ethyl Alcohol Neg (NEG) Bedside Arterial pH 7.26 (7.35-7.45) Bedside Arterial pCO2 61 mmHg (35-45) Bedside Arterial pO2 68 mmHg (75-100) Arterial Blood HCO3 27 mmol/L (21-28) Bedside Arterial Blood O2 Sat 89 % (95-99) Bedside FiO2 36.0 Lactic Acid Level 2.0 mmol/L (0.4-2.0) Nasal Screen MRSA (PCR) Negative (Negative) Test 09/10/18 05:30 09/10/18 08:00 09/10/18 08:15 09/10/18 14:04 White Blood Count 7.8 x10^3/uL (4.0-11.0) Red Blood Count 4.29 x10^6/uL (4.30-5.70) Hemoglobin 12.1 g/dL (13.0-17.5) Hematocrit 36.1 % (39.0-53.0) Mean Corpuscular Volume 84 fL (79-100) Mean Corpuscular Hemoglobin 28 pg (25-35) Mean Corpuscular Hemoglobin Concent 33 g/dL (31-37) Red Cell Distribution Width 14.6 % (11.5-14.5) Platelet Count 244 x10^3/uL (140-400) Neutrophils (%) (Auto) 72 % (31-73) Lymphocytes (%) (Auto) 17 % (24-48) Monocytes (%) (Auto) 10 % (0-9) Eosinophils (%) (Auto) 1 % (0-3) Basophils (%) (Auto) 1 % (0-3) Neutrophils # (Auto) 5.6 x10^3uL (1.8-7.7) Lymphocytes # (Auto) 1.3 x10^3/uL (1.0-4.8) Monocytes # (Auto) 0.8 x10^3/uL (0.0-1.1) Eosinophils # (Auto) 0.0 x10^3/uL (0.0-0.7) Basophils # (Auto) 0.1 x10^3/uL (0.0-0.2) Sodium Level 139 mmol/L (136-145) Potassium Level 4.2 mmol/L (3.5-5.1) Chloride Level 101 mmol/L (98-107) Carbon Dioxide Level 32 mmol/L (21-32) Anion Gap 6 (6-14) Blood Urea Nitrogen 21 mg/dL (8-26) Creatinine 1.0 mg/dL (0.7-1.3) Estimated GFR (Cockcroft-Gault) 74.1 Glucose Level 120 mg/dL (70-99) Calcium Level 8.9 mg/dL (8.5-10.1) O2 Saturation 94 % (92-99) Arterial Blood pH 7.35 (7.35-7.45) Arterial Blood pCO2 at Patient Temp 59 mmHg (35-46) Arterial Blood pO2 at Patient Temp 76 mmHg (65-108) Arterial Blood HCO3 32 mmol/L (21-28) Arterial Blood Base Excess 5 mmol/L (-3-3) FiO2 35 Glucose (Fingerstick) 96 mg/dL (70-99) 124 mg/dL (70-99) Test 09/10/18 17:55 09/11/18 05:33 09/11/18 11:23 Glucose (Fingerstick) 196 mg/dL (70-99) 153 mg/dL (70-99) Prothrombin Time 14.0 SEC (11.7-14.0) Prothromb Time International Ratio 1.1 (0.8-1.1) Activated Partial Thromboplast Time 28 SEC (24-38) Sodium Level 138 mmol/L (136-145) Potassium Level 5.0 mmol/L (3.5-5.1) Chloride Level 101 mmol/L (98-107) Carbon Dioxide Level 28 mmol/L (21-32) Anion Gap 9 (6-14) Blood Urea Nitrogen 19 mg/dL (8-26) Creatinine 1.0 mg/dL (0.7-1.3) Estimated GFR (Cockcroft-Gault) 74.1 Glucose Level 173 mg/dL (70-99) Calcium Level 8.8 mg/dL (8.5-10.1) Magnesium Level 1.6 mg/dL (1.8-2.4) Laboratory Tests Test 09/10/18 14:04 09/10/18 17:55 09/11/18 05:33 09/11/18 11:23 Glucose (Fingerstick) 124 mg/dL (70-99) 196 mg/dL (70-99) 153 mg/dL (70-99) Prothrombin Time 14.0 SEC (11.7-14.0) Prothromb Time International Ratio 1.1 (0.8-1.1) Activated Partial Thromboplast Time 28 SEC (24-38) Sodium Level 138 mmol/L (136-145) Potassium Level 5.0 mmol/L (3.5-5.1) Chloride Level 101 mmol/L (98-107) Carbon Dioxide Level 28 mmol/L (21-32) Anion Gap 9 (6-14) Blood Urea Nitrogen 19 mg/dL (8-26) Creatinine 1.0 mg/dL (0.7-1.3) Estimated GFR (Cockcroft-Gault) 74.1 Glucose Level 173 mg/dL (70-99) Calcium Level 8.8 mg/dL (8.5-10.1) Magnesium Level 1.6 mg/dL (1.8-2.4) Microbiology 09/09/18 Blood Culture - Preliminary, Resulted NO GROWTH AFTER 1 DAY Medications Current Medications Thiamine Mononitrate (Vitamin B-1) 100 mg 1X STAT PO Last administered on at 14:50; Start 09/09/18 at 14:38; Stop 09/09/18 at 14:41; Status DC Folic Acid (Folic Acid) 1 mg 1X STAT PO Last administered on 09/09/18at 14:50 ; Start 09/09/18 at 14:38; Stop 09/09/18 at 14:41; Status DC Sodium Chloride 1,000 ml @ 1,000 mls/hr 1X ONCE IV Last administered on 09/09at 14:50; Start 09/09/18 at 15:00; Stop 09/09/18 at 15:59; Status DC Labetalol HCl (Normodyne Iv Push) 20 mg 1X ONCE IVP Last administered on 09/09at 16:53; Start 09/09/18 at 17:00; Stop 09/09/18 at 17:01; Status DC Chlordiazepoxide (Librium) 25 mg PRN Q6HRS PRN PO ANXIETY / AGITATION Last administered on 09/09/18at 22:35; Start 09/09/18 at 17:00; Stop 09/10/18 at 10 :35; Status DC Acetaminophen (Tylenol) 500 mg PRN Q6HRS PRN PO MILD PAIN / TEMP; Start at 17:00 Morphine Sulfate (Morphine Sulfate) 2 mg PRN Q2HR PRN IV MODERATE TO SEVERE PAIN Last administered on 09/11/18at 05:04; Start 09/09/18 at 17:00 Sodium Chloride 1,000 ml @ 100 mls/hr Q10H IV Last administered on 09/09/18at 19:30; Start 09/09/18 at 18:00; Stop 09/10/18 at 10:35; Status DC Multivitamins (Thera M Plus) 1 tab DAILY PO ; Start 09/10/18 at 09:00 Thiamine Mononitrate (Vitamin B-1) 100 mg DAILY PO ; Start 09/10/18 at 09:00 Folic Acid (Folic Acid) 1 mg DAILY PO ; Start 09/10/18 at 09:00 Labetalol HCl (Normodyne Iv Push) 20 mg PRN Q2HR PRN IVP HYPERTENSION, SEE COMMENTS Last administered on 09/11/18at 08:27; Start 09/09/18 at 17:00 Nicotine (Nicoderm Cq 21mg) 1 patch PRN DAILY PRN TD SMOKING CESSATION; Start 09/09/18 at 17:15 Oxycodone/ Acetaminophen (Percocet 5/325) 1 tab PRN Q4HRS PRN PO MODERATE PAIN ; Start 09/09/18 at 17:15 Diphenhydramine HCl (Benadryl) 25 mg PRN QHS PRN PO INSOMNIA; Start 09/09/18 at 17:15 Aspirin (Children'S Aspirin) 81 mg DAILYWBKFT PO ; Start 09/10/18 at 08:00 Atorvastatin Calcium (Lipitor) 40 mg QHS PO Last administered on 09/09/18at 21: 11; Start 09/09/18 at 21:00 Atorvastatin Calcium (Lipitor) 40 mg QHS PO ; Start 09/09/18 at 21:00; Status UNV Duloxetine HCl (Cymbalta) 30 mg BID PO Last administered on 09/09/18at 21:12; Start 09/09/18 at 21:00 Ferrous Sulfate (Feosol) 325 mg DAILYAC PO ; Start 09/10/18 at 07:30 Finasteride (Proscar) 5 mg DAILY PO ; Start 09/10/18 at 09:00 Lorazepam (Ativan) 0.5 mg PRN DAILY PRN PO ANXIETY / AGITATION; Start at 17:15; Stop 09/10/18 at 10:35; Status DC Metoprolol Tartrate (Lopressor) 25 mg BID PO Last administered on 09/09/18at 21 :12; Start 09/09/18 at 21:00 Pantoprazole Sodium (Protonix) 40 mg DAILYAC PO ; Start 09/10/18 at 07:30 Tamsulosin HCl (Flomax) 0.4 mg DAILY PO ; Start 09/10/18 at 09:00 Tramadol HCl (Ultram) 50 mg PRN Q6HRS PRN PO MILD TO MODERATE PAIN; Start at 17:15 Budesonide (Pulmicort) 0.5 mg RTBID NEB Last administered on 09/11/18at 08:49; Start 09/09/18 at 20:00 Diltiazem HCl (Cardizem 24hr Cd) 120 mg DAILY PO ; Start 09/10/18 at 09:00 Insulin Glargine (Lantus) 10 units QHS SQ Last administered on 09/09/18at 21:49 ; Start 09/09/18 at 21:00; Stop 09/10/18 at 10:35; Status DC Levothyroxine Sodium (Synthroid) 50 mcg DAILY06 PO ; Start 09/10/18 at 06:00 Lidocaine (Lidoderm) 1 patch DAILY TD Last administered on 09/11/18at 09:43; Start 09/10/18 at 09:00 Lisinopril (Prinivil) 2.5 mg DAILY PO ; Start 09/10/18 at 09:00 Non-Formulary Medication (Tiotropium [place] (Spiriva)) 2 inh DAILY IH ; Start 09/10/18 at 09:00; Status UNV Warfarin Sodium (Coumadin) 7.5 mg DAILY16 PO ; Start 09/09/18 at 18:00; Stop 09/10/18 at 16:34; Status DC Insulin Human Lispro (HumaLOG) 0-9 UNITS TIDWMEALS SQ ; Start 09/10/18 at 08:00 Dextrose (Dextrose 50%-Water Syringe) 12.5 gm PRN Q15MIN PRN IV SEE COMMENTS; Start 09/09/18 at 17:15 Miscellaneous (Lidoderm Patch Removal) 1 ea QHS MC Last administered on at 20:49; Start 09/09/18 at 21:00 Albuterol/ Ipratropium (Duoneb) 3 ml RTQID NEB Last administered on 09/11/18at 11:33; Start 09/09/18 at 20:00 Warfarin Sodium (Coumadin Per Physician) 1 each PRN DAILY PRN MC SEE COMMENTS Last administered on 09/11/18at 11:21; Start 09/09/18 at 17:30 Sodium Chloride 1,000 ml @ 75 mls/hr [id number] IV ; Start 09/09/18 at 17:30; Stop 09/10/18 at 10:35; Status DC Lorazepam (Ativan) 2 mg 1X ONCE IV Last administered on 09/09/18at 17:30; Start 09/09/18 at 17:30; Stop 09/09/18 at 17:31; Status DC Clonidine HCl (Catapres) 0.1 mg PRN Q1HR PRN PO SBP > 180 or DBP > 100, MRX3; Start 09/09/18 at 17:30 Lorazepam (Ativan) 2 mg PRN Q15MIN PRN IV CIWA 8-14 Last administered on at 06:20; Start 09/09/18 at 17:30 Albuterol/ Ipratropium (Duoneb) 3 ml 1X ONCE NEB ; Start 09/09/18 at 17:30; Stop 09/09/18 at 17:31; Status DC Levofloxacin/ Dextrose 150 ml @ 100 mls/hr 1X ONCE IV Last administered on at 21:03; Start 09/09/18 at 17:30; Stop 09/09/18 at 18:59; Status DC Albuterol/ Ipratropium (Duoneb) 3 ml RTQID NEB ; Start 09/09/18 at 20:00; Status UNV Guaifenesin (Robitussin Dm) 10 ml PRN Q6HRS PRN PO COUGH; Start 09/09/18 at 19 :00 Levofloxacin/ Dextrose (Levaquin Per Pharmacy) 1 each PRN DAILY PRN MC SEE COMMENTS; Start 09/09/18 at 19:00; Stop 09/11/18 at 09:24; Status DC Heparin Sodium (Porcine) (Heparin Sodium) 5,000 unit Q8HRS SQ Last administered on 09/11/18at 05:48; Start 09/09/18 at 22:00 Levofloxacin/ Dextrose 50 ml @ 50 mls/hr Q24H IV ; Start 09/10/18 at 20:00; Stop 09/10/18 at 20:00; Status DC Haloperidol Lactate (Haldol Inj) 5 mg PRN Q6HRS PRN IVP AGITATION Last administered on 09/11/18at 06:20; Start 09/10/18 at 01:15 Famotidine (Pepcid Vial) 20 mg QHS IVP Last administered on 09/10/18at 20:49; Start 09/10/18 at 21:00 Methylprednisolone Sodium Succinate (SOLU-Medrol 40MG VIAL) 40 mg Q12HR IV Last administered on 09/11/18at 07:39; Start 09/10/18 at 09:00 Chlordiazepoxide (Librium) 50 mg PRN Q6HRS PRN PO ANXIETY/AGITATION, 2ND CHOICE ; Start 09/10/18 at 10:45 Lorazepam (Ativan) 1 mg PRN DAILY PRN PO ANXIETY / AGITATION; Start 09/10/18 at 10:45 Dexmedetomidine HCl 200 mcg/ Sodium Chloride 50 ml @ 0 mls/hr CONT PRN IV PER PROTOCOL Last administered on 09/11/18at 11:40; Start 09/10/18 at 13:30 Sodium Chloride 500 ml @ 500 mls/hr 1X PRN PRN IV SEE COMMENTS; Start at 13:30 Atropine Sulfate (ATROPINE 0.5mg SYRINGE) 0.5 mg PRN Q5MIN PRN IV SEE COMMENTS ; Start 09/10/18 at 13:30 Levofloxacin/ Dextrose 100 ml @ 100 mls/hr Q24H IV Last administered on at 20:48; Start 09/10/18 at 20:00; Stop 09/11/18 at 09:36; Status DC Enalaprilat (Vasotec Inj) 1.25 mg PRN Q4HRS PRN IVP HYPERTENSION, SEE COMMENTS Last administered on 09/11/18at 10:48; Start 09/11/18 at 02:45 Vancomycin HCl (Vanco Per Pharmacy) 1 each PRN DAILY PRN MC SEE COMMENTS Last administered on 09/11/18at 11:19; Start 09/11/18 at 09:15 Vancomycin HCl 2 gm/Sodium Chloride 500 ml @ 250 mls/hr 1X ONCE IV Last administered on 09/11/18at 10:40; Start 09/11/18 at 09:30; Stop 09/11/18 at 11 :29; Status DC Doxycycline Hyclate (Vibra-Tab) 100 mg BID PO ; Start 09/11/18 at 10:00 Cefepime HCl (Maxipime) 1 gm Q8H IVP Last administered on 09/11/18at 10:01; Start 09/11/18 at 10:00 Vancomycin HCl 1.75 gm/Sodium Chloride 500 ml @ 250 mls/hr Q12H IV ; Start at 23:00 Vancomycin HCl (Vancomycin Trough Level) 1 each 1X ONCE MC ; Start 09/12/18 at 22:30; Stop 09/12/18 at 22:31 Active Scripts Active Pantoprazole Sodium 40 Mg Tablet.dr 40 Mg PO DAILYAC Lidoderm (Lidocaine) 700 Mg Adh..patch 1 Patch TD DAILY 12hours on, 12 hours off Lisinopril 2.5 Mg Tablet 2.5 Mg PO DAILY Feosol (Ferrous Sulfate) 325 Mg Tablet 325 Mg PO DAILYAC Children's Aspirin (Aspirin) 81 Mg Tab.chew 81 Mg PO DAILYWBKFT Reported Ventolin Hfa Inhaler (Albuterol Sulfate) 18 Gm Hfa.aer.ad 2 Puff INH Q4HRS Mirtazapine 45 Mg Tablet 1 Tab PO QHS Glipizide 5 Mg Tablet 1 Tab PO BID Metformin Hcl 1,000 Mg Tablet 1,000 Mg PO BIDWMEALS Lantus (Insulin Glargine,Hum.rec.anlog) 100 Unit/1 Ml Vial 50 Unit SQ HS NITROGLYCERIN SubLingual (Nitroglycerin) 0.4 Mg Tab.subl 0.4 Mg SL PRN Q5MIN PRN Fluoxetine Hcl 20 Mg Capsule 3 Cap PO DAILY Novolin R (Insulin Regular, Human) 100 Unit/1 Ml Vial 100 Unit IJ QIDACHS Vitamin D3 (Cholecalciferol (Vitamin D3)) 1,000 Unit Tablet 1 Tab PO TID Vitamin B-12 (Cyanocobalamin (Vitamin B-12)) 1,000 Mcg Tablet 1 Tab PO DAILY Gemfibrozil 600 Mg Tablet 0.5 Tab PO BID Pepcid (Famotidine) 20 Mg Tablet 10 Mg PO BID Cardizem Cd (Diltiazem Hcl) 240 Mg Cap.er.24h 1 Cap PO DAILY Robaxin (Methocarbamol) 500 Mg Tablet 1 Tab PO BID PRN Niaspan (Niacin) 500 Mg Tab.er.24h 1 Tab PO QHS Gabapentin 600 Mg Tablet 300 Mg PO QID Symbicort 80-4.5 Mcg Inhaler (Budesonide/Formoterol Fumarate) 10.2 Gm Hfa.aer.ad 2 Puff IH BID Finasteride 5 Mg Tablet 1 Tab PO DAILY Levothyroxine Sodium 50 Mcg Tablet 1 Tab PO DAILY Tamsulosin Hcl 0.4 Mg Cap.er.24h 0.4 Mg PO BID Spiriva (Tiotropium [place]) 18 Mcg Cap.w.dev 2 Inh IH DAILY Hydrocodone-Apap 7.5-325 (Hydrocodone Bit/Acetaminophen) 1 Each Tablet 1 Tab PO Q4HRS PRN Metoprolol Tartrate 25 Mg Tablet 1 Tab PO BID Vitals/I & O Vital Sign - Last 24 Hours 09/10/18 09/10/18 09/10/18 09/10/18 13:00 13:00 14:00 15:00 Temp 97.5 97.5 Pulse 87 89 70 72 B/P (MAP) 178/101 (126) 141/71 (94) 134/74 (94) Pulse Ox 94 97 97 98 O2 Delivery Nasal Cannula Nasal Cannula BiPAP/CPAP BiPAP/CPAP O2 Flow Rate 4.0 4.0 09/10/18 09/10/18 09/10/18 09/10/18 15:42 16:00 16:00 17:00 Pulse 69 79 Resp 25 22 B/P (MAP) 160/58 (92) 183/63 (103) Pulse Ox 98 98 98 O2 Delivery BiPAP/CPAP BiPAP/CPAP Bi-pap 09/10/18 09/10/18 09/10/18 09/10/18 17:49 18:00 19:03 19:58 Pulse 69 77 Resp 25 47 B/P (MAP) 199/99 (132) Pulse Ox 98 99 97 98 O2 Delivery BiPAP/CPAP BiPAP/CPAP BiPAP/CPAP BiPAP/CPAP 09/10/18 09/10/18 09/10/18 09/10/18 19:58 19:59 20:00 20:00 Pulse 75 Resp 30 B/P (MAP) 194/86 (122) Pulse Ox 98 98 95 O2 Delivery BiPAP/CPAP BiPAP/CPAP BiPAP/CPAP Bi-pap 09/10/18 09/10/18 09/10/18 09/10/18 21:00 21:57 22:00 23:00 Pulse 75 73 72 75 Resp 20 40 35 B/P (MAP) 208/93 (131) 208/78 192/96 (128) 176/78 (110) Pulse Ox 96 96 97 O2 Delivery BiPAP/CPAP BiPAP/CPAP BiPAP/CPAP 09/10/18 09/10/18 09/11/18 09/11/18 23:06 23:57 00:38 00:42 Temp 98.0 98.0 Pulse 75 74 Resp 35 B/P (MAP) 202/87 (125) 202/87 Pulse Ox 97 97 O2 Delivery BiPAP/CPAP Bi-pap BiPAP/CPAP 09/11/18 09/11/18 09/11/18 09/11/18 01:05 01:32 02:00 02:57 Pulse 76 77 Resp 35 B/P (MAP) 193/94 (127) 189/102 Pulse Ox 96 97 97 O2 Delivery BiPAP/CPAP BiPAP/CPAP BiPAP/CPAP 09/11/18 09/11/18 09/11/18 09/11/18 03:00 03:41 03:47 03:57 Pulse 76 75 Resp 30 B/P (MAP) 189/102 (131) 175/85 Pulse Ox 95 96 O2 Delivery BiPAP/CPAP BiPAP/CPAP Bi-pap 09/11/18 09/11/18 09/11/18 09/11/18 04:00 05:00 05:04 05:34 Temp 97.9 97.9 Pulse 79 76 Resp 31 30 36 B/P (MAP) 174/85 (114) 189/102 (131) Pulse Ox 96 95 97 97 O2 Delivery BiPAP/CPAP BiPAP/CPAP BiPAP/CPAP BiPAP/CPAP 09/11/18 09/11/18 09/11/18 09/11/18 05:42 05:59 06:45 07:00 Temp 100.1 100.1 Pulse 75 79 79 Resp 24 25 B/P (MAP) 185/90 (121) 197/85 189/90 (123) Pulse Ox 96 95 98 O2 Delivery BiPAP/CPAP BiPAP/CPAP BiPAP/CPAP 09/11/18 09/11/1818 09/11/18 07:26 08:00 08:27 08:49 Pulse 76 76 Resp 29 B/P (MAP) 190/100 (130) 190/100 Pulse Ox 97 96 O2 Delivery Bi-pap BiPAP/CPAP BiPAP/CPAP 09/11/18 09/11/18 09/11/18 09/11/18 09:00 10:00 10:48 11:00 Pulse 75 77 77 78 Resp 29 28 26 B/P (MAP) 200/90 (126) 201/89 (126) 201/89 197/94 (128) Pulse Ox 97 94 96 O2 Delivery BiPAP/CPAP BiPAP/CPAP BiPAP/CPAP 09/11/18 11:33 Pulse Ox 97 O2 Delivery BiPAP/CPAP Intake and Output 09/10/18 09/10/18 09/11/18 15:00 23:00 07:00 Intake Total 0 ml 1326 ml 1393 ml Output Total 560 ml 510 ml 520 ml Balance -560 ml 816 ml 873 ml CASTLE,NIAL K III DO Sep 11, 2018 12:12
[2018-09-11] MEDS: PANTOPRAZOLE IV PUSH 40 MG VIAL. IVP SCH (12:44)
--- NOTE | 2018-09-11 12:50 | PDOC2 ---
CARDIAC CONSULT DATE OF CONSULT Date of Consult DATE: 09/11/18 TIME: 12:39 REASON FOR CONSULT Reason for Consult: CAD HTN REFERRING PHYSICIAN Referring Physician: Dr. Lozano SOURCE Source: Chart review, Patient HISTORY OF PRESENT ILLNESS HISTORY OF PRESENT ILLNESS This is a 67 yo male who presented secondary to altered mental status. HPI obtain from chart review as patient is sedated on BiPAP and family is not currently present. [facility] Extensive PMH including CAD s/ p CABG, COPD, chronic back pain, opioid dependent, SABRINA with CPAP, ETOH abuse family reports recently sober, HTN, and diabetes. Was brought in by family with concerns for altered mental status and tremors. Family report that he may have taken up to 15 Silex over a period of 2 hours due to significant/worsening back pain. Cardiology was obtained due to his history of CAD and hypertension. BP has been significantly elevated as he has been unable to take routine oral medications. PAST MEDICAL HISTORY Cardiovascular: AFIB (paroxysmal ), CAD (s/p CABG), HTN Pulmonary: COPD, Other (SABRINA) GI: GERD Heme/Onc: No pertinent hx Hepatobiliary: No pertinent hx Psych: Anxiety Musculoskeletal: low back pain, Osteoarthritis Rheumatologic: No pertinent hx Infectious disease: No pertinent hx ENT: No pertinent hx Renal/: No pertinent hx Endocrine: Diabetes, Hypothyroidism Dermatology: No pertinent hx PAST SURGICAL HISTORY Past Surgical History: CABG, Hernia Repair, Total knee replacement (right ) FAMILY HISTORY Family History: Hypertension SOCIAL HISTORY Smoke: No ALCOHOL: other (chronic ETOH/binge drinking- recently sober per family) Drugs: None Lives: with Family CURRENT MEDICATIONS CURRENT MEDICATIONS Current Medications Medications (Trade) Dose Ordered Sig/Drew Route PRN Reason Start Time Stop Time Status Last Admin Dose Admin Famotidine (Pepcid Vial) 20 mg QHS IVP 09/10/18 21:00 09/10/18 20:49 Dexmedetomidine HCl 200 mcg/ Sodium Chloride 50 ml @ 0 mls/hr CONT PRN IV PER PROTOCOL 09/10/18 13:30 09/11/18 12:10 Levofloxacin/ Dextrose 100 ml @ 100 mls/hr Q24H IV 09/10/18 20:00 09/11/18 09:36 DC 09/10/18 20:48 Enalaprilat (Vasotec Inj) 1.25 mg PRN Q4HRS PRN IVP HYPERTENSION, SEE COMMENTS 09/11/18 02:45 09/11/18 10:48 Vancomycin HCl (Vanco Per Pharmacy) 1 each PRN DAILY PRN MC SEE COMMENTS 09/11/18 09:15 09/11/18 11:19 Vancomycin HCl 2 gm/Sodium Chloride 500 ml @ 250 mls/hr 1X ONCE IV 09/11/18 09:30 09/11/18 11:29 DC 09/11/18 10:40 Cefepime HCl (Maxipime) 1 gm Q8H IVP 09/11/18 10:00 09/11/18 10:01 ALLERGIES ALLERGIES: Coded Allergies: Penicillins (Verified Allergy, Intermediate, PEELING HANDS; TOLERATES AMOXICILLIN, 07/14/16) celecoxib (Verified Allergy, Intermediate, "i dont know", 07/09/16) gabapentin (Verified Allergy, Intermediate, "i dont know", 07/09/16) pregabalin (Verified Allergy, Intermediate, "i dont know", 07/09/16) tadalafil (Verified Allergy, Intermediate, "i dont know", 07/09/16) terazosin (Verified Allergy, Intermediate, "i dont know", 07/09/16) varenicline (Verified Allergy, Intermediate, "i dont know" , 07/09/16) ROS Review of System unobtainable PHYSICAL EXAM General: No acute distress, Other (confused) HEENT: Atraumatic, Mucous membr. moist/pink Lungs: Other (diminished bases- on BiPAP) Heart: Regular rate, Normal S1, Normal S2, Other (distant heart tones. ) Abdomen: Soft, Other (obese) Extremities: No edema, Normal pulses Skin: No significant lesion Neuro: Normal tone Psych/Mental Status: Other (drowsy) MUSCULOSKELETAL: Osteoarthritic changes both hands VITALS VITALS Vital Signs Date Time Temp Pulse Resp B/P (MAP) Pulse Ox O2 Delivery O2 Flow Rate FiO2 09/11/18 12:00 84 24 200/94 (129) 96 BiPAP/CPAP 09/11/18 07:00 100.1 100.1 09/10/18 13:00 4.0 LABS Lab: Laboratory Tests Test 09/10/18 14:04 09/10/18 17:55 09/11/18 05:33 09/11/18 11:23 Glucose (Fingerstick) 124 mg/dL (70-99) 196 mg/dL (70-99) 153 mg/dL (70-99) Prothrombin Time 14.0 SEC (11.7-14.0) Prothromb Time International Ratio 1.1 (0.8-1.1) Activated Partial Thromboplast Time 28 SEC (24-38) Sodium Level 138 mmol/L (136-145) Potassium Level 5.0 mmol/L (3.5-5.1) Chloride Level 101 mmol/L (98-107) Carbon Dioxide Level 28 mmol/L (21-32) Anion Gap 9 (6-14) Blood Urea Nitrogen 19 mg/dL (8-26) Creatinine 1.0 mg/dL (0.7-1.3) Estimated GFR (Cockcroft-Gault) 74.1 Glucose Level 173 mg/dL (70-99) Calcium Level 8.8 mg/dL (8.5-10.1) Magnesium Level 1.6 mg/dL (1.8-2.4) ECHOCARDIOGRAM ECHOCARDIOGRAM <Conclusion> The left ventricle is normal size. Left ventricle systolic function is normal. The Ejection Fraction is 55-60%. There is mild concentric left ventricular hypertrophy. There is no significant aortic valvular stenosis. Doppler and Color Flow revealed no significant aortic regurgitation. Doppler and Color-flow revealed trace to mild mitral regurgitation. Doppler and Color Flow revealed trace tricuspid regurgitation. The PA pressure was estimated at 30 mmHg. DATE: 07/09/16 1320 ASSESSMENT/PLAN ASSESSMENT/PLAN 1. Malignant HTN; presently NPO. IV Vasotec and labetalol PRN. 2. Metabolic/toxic encephalopathy; persists, 1:1- on Precedex. 3. Chronic alcoholism/binge drinking 4. Acute on chronic respiratory failure; multifactorial given AECOPD, SABRINA, encephalopathy, and possible PNA. Pulm following 5. CAD; s/p CABG 12/2015 [facility] Echo 2015 showed normal LV systolic function 6. Possible sepsis; BC + 7. WARREN; improved. Cr now 1.0 from 2.3 8. AAA with previous EVAR 9. Hyperlipidemia; statin when able to take PO 10. Hx of PAFIB; Maintaining SR with PAC's. Previously on warfarin but was discontinued a couple of years ago per family. 11. DM, II 12. Chronic back pain; opioid dependent. Possible overdose. 13. Hematuria 14. Hypomagnesemia Recommendations Check echo to assess LV systolic function Will need to start Cardene gtt if not able to control BP with enalapril and labetalol. Resume home antiHTN therapy when able to take PO. Secondary prevention measures as able. Check lipids Supportive care from a CV perspective. Treatment of bacteremia as per ID. ARSH NARAYANAN APRN Sep 11, 2018 12:50
[2018-09-11] MEDS ORDERED: DEXTROSE 50% 25 GM / 50ML DISP.SYRIN. IV PRN (13:00)
[2018-09-11] MEDS ORDERED: NORMAL SALINE IVP SCH (13:30)
[2018-09-11] MEDS ORDERED: MAGNESIUM SULFATE 2GM 50 ML IV ONE (13:30)
[2018-09-11] MEDS ORDERED: LEVOTHYROXINE SODIUM IVP SCH (13:30)
--- NOTE | 2018-09-11 13:37 | PDOC2 ---
CONSULT Date of Consult Date of Consult DATE: 09/11/18 TIME: 13:17 Reason for Consult Reason for Consult: Elevated Creat Source Source: Chart review History of Present Illness Reason for Visit: 67-year-old male, morbidly obese, [facility] Hx Obtained from chart review, Pt is on Bipap . His past medical history significant for alcohol use ,sepsis, UTI, IBS , CAD, s/p CABG , COPD, narcotic dependence, hypertension, sleep apnea on CPAP, diabetes. He was brought in by family because of tremors and inability to walk and worsening mentation on . May have taken Increased dose of Opioids unintentionally due to worsening and persistent back pain HE is admitted to the ICU with atelectasis and pneumonia on x-ray with an ABG that shows some acidosis pH of 7.25, PCO2 60-he has sleep apnea , High BP in ER Renal Consulted for WARREN -Labs show creat 2.3 from a baseline 1.3. Pt is on Bipap, Hx Obtained from Chart review and RN at bedside . Currently he is stable, has Mary Past Medical History Cardiovascular: CAD (s/p CABG), HTN Pulmonary: COPD, Other (SABRINA) CENTRAL NERVOUS SYSTEM: Other GI: GERD Heme/Onc: No pertinent hx Hepatobiliary: No pertinent hx Psych: Anxiety Musculoskeletal: Osteoarthritis, Other Rheumatologic: No pertinent hx Infectious disease: No pertinent hx Renal/: No pertinent hx Endocrine: Diabetes, Hypothyroidism Past Surgical History Past Surgical History: CABG, Hernia Repair, Total knee replacement (right ) Family History Family History: Heart Disease Social History ALCOHOL: heavy Drugs: None Lives: with Family Current Problem List Problem List Problems Medical Problems: (1) Acute kidney injury Status: Acute (2) Alcohol withdrawal Status: Acute (3) Pneumonia Status: Acute (4) Rhabdomyolysis Status: Acute Current Medications Current Medications Current Medications Thiamine Mononitrate (Vitamin B-1) 100 mg 1X STAT PO Last administered on at 14:50; Start 09/09/18 at 14:38; Stop 09/09/18 at 14:41; Status DC Folic Acid (Folic Acid) 1 mg 1X STAT PO Last administered on 09/09/18at 14:50 ; Start 09/09/18 at 14:38; Stop 09/09/18 at 14:41; Status DC Sodium Chloride 1,000 ml @ 1,000 mls/hr 1X ONCE IV Last administered on 09/09at 14:50; Start 09/09/18 at 15:00; Stop 09/09/18 at 15:59; Status DC Labetalol HCl (Normodyne Iv Push) 20 mg 1X ONCE IVP Last administered on 09/09at 16:53; Start 09/09/18 at 17:00; Stop 09/09/18 at 17:01; Status DC Chlordiazepoxide (Librium) 25 mg PRN Q6HRS PRN PO ANXIETY / AGITATION Last administered on 09/09/18at 22:35; Start 09/09/18 at 17:00; Stop 09/10/18 at 10 :35; Status DC Acetaminophen (Tylenol) 500 mg PRN Q6HRS PRN PO MILD PAIN / TEMP; Start at 17:00 Morphine Sulfate (Morphine Sulfate) 2 mg PRN Q2HR PRN IV MODERATE TO SEVERE PAIN Last administered on 09/11/18at 05:04; Start 09/09/18 at 17:00 Sodium Chloride 1,000 ml @ 100 mls/hr Q10H IV Last administered on 09/09/18at 19:30; Start 09/09/18 at 18:00; Stop 09/10/18 at 10:35; Status DC Multivitamins (Thera M Plus) 1 tab DAILY PO ; Start 09/10/18 at 09:00; Stop at 13:13; Status DC Thiamine Mononitrate (Vitamin B-1) 100 mg DAILY PO ; Start 09/10/18 at 09:00; Stop 09/11/18 at 13:13; Status DC Folic Acid (Folic Acid) 1 mg DAILY PO ; Start 09/10/18 at 09:00; Stop at 13:13; Status DC Labetalol HCl (Normodyne Iv Push) 20 mg PRN Q2HR PRN IVP HYPERTENSION, SEE COMMENTS Last administered on 09/11/18at 08:27; Start 09/09/18 at 17:00 Nicotine (Nicoderm Cq 21mg) 1 patch PRN DAILY PRN TD SMOKING CESSATION; Start 09/09/18 at 17:15; Stop 09/11/18 at 13:13; Status DC Oxycodone/ Acetaminophen (Percocet 5/325) 1 tab PRN Q4HRS PRN PO MODERATE PAIN ; Start 09/09/18 at 17:15 Diphenhydramine HCl (Benadryl) 25 mg PRN QHS PRN PO INSOMNIA; Start 09/09/18 at 17:15 Aspirin (Children'S Aspirin) 81 mg DAILYWBKFT PO ; Start 09/10/18 at 08:00 Atorvastatin Calcium (Lipitor) 40 mg QHS PO Last administered on 09/09/18at 21: 11; Start 09/09/18 at 21:00 Atorvastatin Calcium (Lipitor) 40 mg QHS PO ; Start 09/09/18 at 21:00; Status UNV Duloxetine HCl (Cymbalta) 30 mg BID PO Last administered on 09/09/18at 21:12; Start 09/09/18 at 21:00; Stop 09/11/18 at 13:13; Status DC Ferrous Sulfate (Feosol) 325 mg DAILYAC PO ; Start 09/10/18 at 07:30; Stop at 13:13; Status DC Finasteride (Proscar) 5 mg DAILY PO ; Start 09/10/18 at 09:00 Lorazepam (Ativan) 0.5 mg PRN DAILY PRN PO ANXIETY / AGITATION; Start at 17:15; Stop 09/10/18 at 10:35; Status DC Metoprolol Tartrate (Lopressor) 25 mg BID PO Last administered on 09/09/18at 21 :12; Start 09/09/18 at 21:00 Pantoprazole Sodium (Protonix) 40 mg DAILYAC PO ; Start 09/10/18 at 07:30; Stop 09/11/18 at 12:20; Status DC Tamsulosin HCl (Flomax) 0.4 mg DAILY PO ; Start 09/10/18 at 09:00 Tramadol HCl (Ultram) 50 mg PRN Q6HRS PRN PO MILD TO MODERATE PAIN; Start at 17:15 Budesonide (Pulmicort) 0.5 mg RTBID NEB Last administered on 09/11/18at 08:49; Start 09/09/18 at 20:00 Diltiazem HCl (Cardizem 24hr Cd) 120 mg DAILY PO ; Start 09/10/18 at 09:00; Stop 09/11/18 at 13:13; Status DC Insulin Glargine (Lantus) 10 units QHS SQ Last administered on 09/09/18at 21:49 ; Start 09/09/18 at 21:00; Stop 09/10/18 at 10:35; Status DC Levothyroxine Sodium (Synthroid) 50 mcg DAILY06 PO ; Start 09/10/18 at 06:00 Lidocaine (Lidoderm) 1 patch DAILY TD Last administered on 09/11/18at 09:43; Start 09/10/18 at 09:00 Lisinopril (Prinivil) 2.5 mg DAILY PO ; Start 09/10/18 at 09:00; Stop at 13:13; Status DC Non-Formulary Medication (Tiotropium [place] (Spiriva)) 2 inh DAILY IH ; Start 09/10/18 at 09:00; Status UNV Warfarin Sodium (Coumadin) 7.5 mg DAILY16 PO ; Start 09/09/18 at 18:00; Stop 09/10/18 at 16:34; Status DC Insulin Human Lispro (HumaLOG) 0-9 UNITS TIDWMEALS SQ ; Start 09/10/18 at 08:00 ; Stop 09/11/18 at 13:13; Status DC Dextrose (Dextrose 50%-Water Syringe) 12.5 gm PRN Q15MIN PRN IV SEE COMMENTS; Start 09/09/18 at 17:15 Miscellaneous (Lidoderm Patch Removal) 1 ea QHS MC Last administered on at 20:49; Start 09/09/18 at 21:00 Albuterol/ Ipratropium (Duoneb) 3 ml RTQID NEB Last administered on 09/11/18at 11:33; Start 09/09/18 at 20:00 Warfarin Sodium (Coumadin Per Physician) 1 each PRN DAILY PRN MC SEE COMMENTS Last administered on 09/11/18at 11:21; Start 09/09/18 at 17:30; Stop 09/11/18 at 13:13; Status DC Sodium Chloride 1,000 ml @ 75 mls/hr [id number] IV ; Start 09/09/18 at 17:30; Stop 09/10/18 at 10:35; Status DC Lorazepam (Ativan) 2 mg 1X ONCE IV Last administered on 09/09/18at 17:30; Start 09/09/18 at 17:30; Stop 09/09/18 at 17:31; Status DC Clonidine HCl (Catapres) 0.1 mg PRN Q1HR PRN PO SBP > 180 or DBP > 100, MRX3; Start 09/09/18 at 17:30 Lorazepam (Ativan) 2 mg PRN Q15MIN PRN IV CIWA 8-14 Last administered on at 06:20; Start 09/09/18 at 17:30 Albuterol/ Ipratropium (Duoneb) 3 ml 1X ONCE NEB ; Start 09/09/18 at 17:30; Stop 09/09/18 at 17:31; Status DC Levofloxacin/ Dextrose 150 ml @ 100 mls/hr 1X ONCE IV Last administered on at 21:03; Start 09/09/18 at 17:30; Stop 09/09/18 at 18:59; Status DC Albuterol/ Ipratropium (Duoneb) 3 ml RTQID NEB ; Start 09/09/18 at 20:00; Status UNV Guaifenesin (Robitussin Dm) 10 ml PRN Q6HRS PRN PO COUGH; Start 09/09/18 at 19 :00 Levofloxacin/ Dextrose (Levaquin Per Pharmacy) 1 each PRN DAILY PRN MC SEE COMMENTS; Start 09/09/18 at 19:00; Stop 09/11/18 at 09:24; Status DC Heparin Sodium (Porcine) (Heparin Sodium) 5,000 unit Q8HRS SQ Last administered on 09/11/18at 05:48; Start 09/09/18 at 22:00 Levofloxacin/ Dextrose 50 ml @ 50 mls/hr Q24H IV ; Start 09/10/18 at 20:00; Stop 09/10/18 at 20:00; Status DC Haloperidol Lactate (Haldol Inj) 5 mg PRN Q6HRS PRN IVP AGITATION Last administered on 09/11/18at 06:20; Start 09/10/18 at 01:15 Famotidine (Pepcid Vial) 20 mg QHS IVP Last administered on 09/10/18at 20:49; Start 09/10/18 at 21:00 Methylprednisolone Sodium Succinate (SOLU-Medrol 40MG VIAL) 40 mg Q12HR IV Last administered on 09/11/18at 07:39; Start 09/10/18 at 09:00 Chlordiazepoxide (Librium) 50 mg PRN Q6HRS PRN PO ANXIETY/AGITATION, 2ND CHOICE ; Start 09/10/18 at 10:45 Lorazepam (Ativan) 1 mg PRN DAILY PRN PO ANXIETY / AGITATION; Start 09/10/18 at 10:45 Dexmedetomidine HCl 200 mcg/ Sodium Chloride 50 ml @ 0 mls/hr CONT PRN IV PER PROTOCOL Last administered on 09/11/18at 12:10; Start 09/10/18 at 13:30 Sodium Chloride 500 ml @ 500 mls/hr 1X PRN PRN IV SEE COMMENTS; Start at 13:30 Atropine Sulfate (ATROPINE 0.5mg SYRINGE) 0.5 mg PRN Q5MIN PRN IV SEE COMMENTS ; Start 09/10/18 at 13:30 Levofloxacin/ Dextrose 100 ml @ 100 mls/hr Q24H IV Last administered on at 20:48; Start 09/10/18 at 20:00; Stop 09/11/18 at 09:36; Status DC Enalaprilat (Vasotec Inj) 1.25 mg PRN Q4HRS PRN IVP HYPERTENSION, SEE COMMENTS Last administered on 09/11/18at 10:48; Start 09/11/18 at 02:45 Vancomycin HCl (Vanco Per Pharmacy) 1 each PRN DAILY PRN MC SEE COMMENTS Last administered on 09/11/18at 11:19; Start 09/11/18 at 09:15 Vancomycin HCl 2 gm/Sodium Chloride 500 ml @ 250 mls/hr 1X ONCE IV Last administered on 09/11/18at 10:40; Start 09/11/18 at 09:30; Stop 09/11/18 at 11 :29; Status DC Doxycycline Hyclate (Vibra-Tab) 100 mg BID PO ; Start 09/11/18 at 10:00 Cefepime HCl (Maxipime) 1 gm Q8H IVP Last administered on 09/11/18at 10:01; Start 09/11/18 at 10:00 Vancomycin HCl 1.75 gm/Sodium Chloride 500 ml @ 250 mls/hr Q12H IV ; Start at 23:00 Vancomycin HCl (Vancomycin Trough Level) 1 each 1X ONCE MC ; Start 09/12/18 at 22:30; Stop 09/12/18 at 22:31 Pantoprazole Sodium (PROTONIX VIAL for IV PUSH) 40 mg DAILYAC IVP Last administered on 09/11/18at 12:44; Start 09/11/18 at 12:30 Multivitamins 10 ml/Thiamine HCl 100 mg/Folic Acid 1 mg/Sodium Chloride 1,011.2 ml @ 0 mls/hr DAILY IV ; Start 09/11/18 at 14:00 Insulin Human Lispro (HumaLOG) 0-7 UNITS TIDWMEALS SQ ; Start 09/11/18 at 17:00 ; Status UNV Dextrose (Dextrose 50%-Water Syringe) 12.5 gm PRN Q15MIN PRN IV SEE COMMENTS; Start 09/11/18 at 13:00; Status UNV Active Scripts Active Pantoprazole Sodium 40 Mg Tablet.dr 40 Mg PO DAILYAC Lidoderm (Lidocaine) 700 Mg Adh..patch 1 Patch TD DAILY 12hours on, 12 hours off Lisinopril 2.5 Mg Tablet 2.5 Mg PO DAILY Feosol (Ferrous Sulfate) 325 Mg Tablet 325 Mg PO DAILYAC Children's Aspirin (Aspirin) 81 Mg Tab.chew 81 Mg PO DAILYWBKFT Reported Ventolin Hfa Inhaler (Albuterol Sulfate) 18 Gm Hfa.aer.ad 2 Puff INH Q4HRS Mirtazapine 45 Mg Tablet 1 Tab PO QHS Glipizide 5 Mg Tablet 1 Tab PO BID Metformin Hcl 1,000 Mg Tablet 1,000 Mg PO BIDWMEALS Lantus (Insulin Glargine,Hum.rec.anlog) 100 Unit/1 Ml Vial 50 Unit SQ HS NITROGLYCERIN SubLingual (Nitroglycerin) 0.4 Mg Tab.subl 0.4 Mg SL PRN Q5MIN PRN Fluoxetine Hcl 20 Mg Capsule 3 Cap PO DAILY Novolin R (Insulin Regular, Human) 100 Unit/1 Ml Vial 100 Unit IJ QIDACHS Vitamin D3 (Cholecalciferol (Vitamin D3)) 1,000 Unit Tablet 1 Tab PO TID Vitamin B-12 (Cyanocobalamin (Vitamin B-12)) 1,000 Mcg Tablet 1 Tab PO DAILY Gemfibrozil 600 Mg Tablet 0.5 Tab PO BID Pepcid (Famotidine) 20 Mg Tablet 10 Mg PO BID Cardizem Cd (Diltiazem Hcl) 240 Mg Cap.er.24h 1 Cap PO DAILY Robaxin (Methocarbamol) 500 Mg Tablet 1 Tab PO BID PRN Niaspan (Niacin) 500 Mg Tab.er.24h 1 Tab PO QHS Gabapentin 600 Mg Tablet 300 Mg PO QID Symbicort 80-4.5 Mcg Inhaler (Budesonide/Formoterol Fumarate) 10.2 Gm Hfa.aer.ad 2 Puff IH BID Finasteride 5 Mg Tablet 1 Tab PO DAILY Levothyroxine Sodium 50 Mcg Tablet 1 Tab PO DAILY Tamsulosin Hcl 0.4 Mg Cap.er.24h 0.4 Mg PO BID Spiriva (Tiotropium [place]) 18 Mcg Cap.w.dev 2 Inh IH DAILY Hydrocodone-Apap 7.5-325 (Hydrocodone Bit/Acetaminophen) 1 Each Tablet 1 Tab PO Q4HRS PRN Metoprolol Tartrate 25 Mg Tablet 1 Tab PO BID Allergies Allergies: Coded Allergies: Penicillins (Verified Allergy, Intermediate, PEELING HANDS; TOLERATES AMOXICILLIN, 07/14/16) celecoxib (Verified Allergy, Intermediate, "i dont know", 07/09/16) gabapentin (Verified Allergy, Intermediate, "i dont know", 07/09/16) pregabalin (Verified Allergy, Intermediate, "i dont know", 07/09/16) tadalafil (Verified Allergy, Intermediate, "i dont know", 07/09/16) terazosin (Verified Allergy, Intermediate, "i dont know", 07/09/16) varenicline (Verified Allergy, Intermediate, "i dont know" , 07/09/16) ROS Review of System Unable to Obtain from Patient Physical Exam Physical Exam General: mild distress, tachypneic,on Bipap HEENT: On Bipap Neck Supple Lungs: CTA ant Heart: S1S2, RRR, no thrills, no rubs, no gallops, no murmurs Abdomen: Soft,Obese Extremities: No edema Skin: No rashes Neuro: Unable , On Bipap - Indwelling Mary +\\ Vital Signs Vital Signs Date Time Temp Pulse Resp B/P (MAP) Pulse Ox O2 Delivery O2 Flow Rate FiO2 09/11/18 13:00 85 28 143/72 (95) 96 BiPAP/CPAP 12/17/18 07:00 100.1 100.1 09/10/18 13:00 4.0 Assessment & Plan WARREN-vasomotor Renal function back to normal , Good UOP Electrolytes and acid base stable No PMHx of CKD as per family Pneumonia- On Abx DM- as per primary Abdominal aortic aneurysm s/p endoluminal stent graft. HTN- BP improved Discussed with family and RN at bedside Labs Labs Laboratory Tests Test 09/09/18 14:35 09/09/18 16:13 09/09/18 17:34 09/09/18 18:00 White Blood Count 10.3 x10^3/uL (4.0-11.0) Red Blood Count 4.57 x10^6/uL (4.30-5.70) Hemoglobin 12.9 g/dL (13.0-17.5) Hematocrit 39.1 % (39.0-53.0) Mean Corpuscular Volume 86 fL (79-100) Mean Corpuscular Hemoglobin 28 pg (25-35) Mean Corpuscular Hemoglobin Concent 33 g/dL (31-37) Red Cell Distribution Width 14.7 % (11.5-14.5) Platelet Count 271 x10^3/uL (140-400) Neutrophils (%) (Auto) 90 % (31-73) Lymphocytes (%) (Auto) 5 % (24-48) Monocytes (%) (Auto) 5 % (0-9) Eosinophils (%) (Auto) 0 % (0-3) Basophils (%) (Auto) 0 % (0-3) Neutrophils # (Auto) 9.2 x10^3uL (1.8-7.7) Lymphocytes # (Auto) 0.5 x10^3/uL (1.0-4.8) Monocytes # (Auto) 0.5 x10^3/uL (0.0-1.1) Eosinophils # (Auto) 0.0 x10^3/uL (0.0-0.7) Basophils # (Auto) 0.0 x10^3/uL (0.0-0.2) Segmented Neutrophils % 92 % (35-66) Band Neutrophils % 1 % (0-9) Lymphocytes % 4 % (24-48) Monocytes % 3 % (0-10) Platelet Estimate Adequate (ADEQUATE) Prothrombin Time 12.8 SEC (11.7-14.0) Prothromb Time International Ratio 1.0 (0.8-1.1) Urine Collection Type Unknown Urine Color Yellow Urine Clarity Clear Urine pH 5.0 Urine Specific [place] 1.025 Urine Protein Negative mg/dL (NEG-TRACE) Urine Glucose (UA) Negative mg/dL (NEG) Urine Ketones (Stick) Negative mg/dL (NEG) Urine Blood Negative (NEG) Urine Nitrite Negative (NEG) Urine Bilirubin Negative (NEG) Urine Urobilinogen Dipstick 0.2 mg/dL (0.2 mg/dL) Urine Leukocyte Esterase Negative (NEG) Urine RBC 0 /HPF (0-2) Urine WBC 0 /HPF (0-4) Urine Squamous Epithelial Cells Few /LPF Urine Bacteria 0 /HPF (0-FEW) Urine Mucus Marked /LPF Sodium Level 138 mmol/L (136-145) Potassium Level 5.0 mmol/L (3.5-5.1) Chloride Level 98 mmol/L (98-107) Carbon Dioxide Level 28 mmol/L (21-32) Anion Gap 12 (6-14) Blood Urea Nitrogen 41 mg/dL (8-26) Creatinine 2.3 mg/dL (0.7-1.3) Estimated GFR (Cockcroft-Gault) 28.3 BUN/Creatinine Ratio 18 (6-20) Glucose Level 180 mg/dL (70-99) Calcium Level 9.2 mg/dL (8.5-10.1) Magnesium Level 2.2 mg/dL (1.8-2.4) Total Bilirubin 0.3 mg/dL (0.2-1.0) Aspartate Amino Transf (AST/SGOT) 47 U/L (15-37) Alanine Aminotransferase (ALT/SGPT) 51 U/L (16-63) Alkaline Phosphatase 63 U/L (46-116) Creatine Kinase 849 U/L (39-308) Troponin I Quantitative 0.037 ng/mL (0.000-0.055) Total Protein 7.3 g/dL (6.4-8.2) Albumin 3.7 g/dL (3.4-5.0) Albumin/Globulin Ratio 1.0 (1.0-1.7) Lipase 92 U/L (73-393) Thyroid Stimulating Hormone (TSH) 0.859 uIU/mL (0.358-3.74) Salicylates Level < 2.8 mg/dL (2.8-20.0) Salicylate Last Dose Date Unk Salicylate Last Dose Time Unk Urine Opiates Screen Pos (NEG) Urine Methadone Screen Neg (NEG) Acetaminophen Level < 2 mcg/ml (10-30) Acetaminophen Last Dose Date Unk Acetaminophen Last Dose Time Unk Urine Barbiturates Neg (NEG) Urine Phencyclidine Screen Neg (NEG) Urine Amphetamine/Methamphetamine Neg (NEG) Urine Benzodiazepines Screen Neg (NEG) Urine Cocaine Screen Neg (NEG) Urine Cannabinoids Screen Neg (NEG) Ethyl Alcohol Level < 10 mg/dL (0-10) Urine Ethyl Alcohol Neg (NEG) Bedside Arterial pH 7.26 (7.35-7.45) Bedside Arterial pCO2 61 mmHg (35-45) Bedside Arterial pO2 68 mmHg (75-100) Arterial Blood HCO3 27 mmol/L (21-28) Bedside Arterial Blood O2 Sat 89 % (95-99) Bedside FiO2 36.0 Lactic Acid Level 2.0 mmol/L (0.4-2.0) Nasal Screen MRSA (PCR) Negative (Negative) Test 09/10/18 05:30 09/10/18 08:00 09/10/18 08:15 09/10/18 14:04 White Blood Count 7.8 x10^3/uL (4.0-11.0) Red Blood Count 4.29 x10^6/uL (4.30-5.70) Hemoglobin 12.1 g/dL (13.0-17.5) Hematocrit 36.1 % (39.0-53.0) Mean Corpuscular Volume 84 fL (79-100) Mean Corpuscular Hemoglobin 28 pg (25-35) Mean Corpuscular Hemoglobin Concent 33 g/dL (31-37) Red Cell Distribution Width 14.6 % (11.5-14.5) Platelet Count 244 x10^3/uL (140-400) Neutrophils (%) (Auto) 72 % (31-73) Lymphocytes (%) (Auto) 17 % (24-48) Monocytes (%) (Auto) 10 % (0-9) Eosinophils (%) (Auto) 1 % (0-3) Basophils (%) (Auto) 1 % (0-3) Neutrophils # (Auto) 5.6 x10^3uL (1.8-7.7) Lymphocytes # (Auto) 1.3 x10^3/uL (1.0-4.8) Monocytes # (Auto) 0.8 x10^3/uL (0.0-1.1) Eosinophils # (Auto) 0.0 x10^3/uL (0.0-0.7) Basophils # (Auto) 0.1 x10^3/uL (0.0-0.2) Sodium Level 139 mmol/L (136-145) Potassium Level 4.2 mmol/L (3.5-5.1) Chloride Level 101 mmol/L (98-107) Carbon Dioxide Level 32 mmol/L (21-32) Anion Gap 6 (6-14) Blood Urea Nitrogen 21 mg/dL (8-26) Creatinine 1.0 mg/dL (0.7-1.3) Estimated GFR (Cockcroft-Gault) 74.1 Glucose Level 120 mg/dL (70-99) Calcium Level 8.9 mg/dL (8.5-10.1) O2 Saturation 94 % (92-99) Arterial Blood pH 7.35 (7.35-7.45) Arterial Blood pCO2 at Patient Temp 59 mmHg (35-46) Arterial Blood pO2 at Patient Temp 76 mmHg (65-108) Arterial Blood HCO3 32 mmol/L (21-28) Arterial Blood Base Excess 5 mmol/L (-3-3) FiO2 35 Glucose (Fingerstick) 96 mg/dL (70-99) 124 mg/dL (70-99) Test 09/10/18 17:55 09/11/18 05:33 09/11/18 11:23 Glucose (Fingerstick) 196 mg/dL (70-99) 153 mg/dL (70-99) Prothrombin Time 14.0 SEC (11.7-14.0) Prothromb Time International Ratio 1.1 (0.8-1.1) Activated Partial Thromboplast Time 28 SEC (24-38) Sodium Level 138 mmol/L (136-145) Potassium Level 5.0 mmol/L (3.5-5.1) Chloride Level 101 mmol/L (98-107) Carbon Dioxide Level 28 mmol/L (21-32) Anion Gap 9 (6-14) Blood Urea Nitrogen 19 mg/dL (8-26) Creatinine 1.0 mg/dL (0.7-1.3) Estimated GFR (Cockcroft-Gault) 74.1 Glucose Level 173 mg/dL (70-99) Calcium Level 8.8 mg/dL (8.5-10.1) Magnesium Level 1.6 mg/dL (1.8-2.4) Laboratory Tests Test 09/10/18 14:04 09/10/18 17:55 09/11/18 05:33 09/11/18 11:23 Glucose (Fingerstick) 124 mg/dL (70-99) 196 mg/dL (70-99) 153 mg/dL (70-99) Prothrombin Time 14.0 SEC (11.7-14.0) Prothromb Time International Ratio 1.1 (0.8-1.1) Activated Partial Thromboplast Time 28 SEC (24-38) Sodium Level 138 mmol/L (136-145) Potassium Level 5.0 mmol/L (3.5-5.1) Chloride Level 101 mmol/L (98-107) Carbon Dioxide Level 28 mmol/L (21-32) Anion Gap 9 (6-14) Blood Urea Nitrogen 19 mg/dL (8-26) Creatinine 1.0 mg/dL (0.7-1.3) Estimated GFR (Cockcroft-Gault) 74.1 Glucose Level 173 mg/dL (70-99) Calcium Level 8.8 mg/dL (8.5-10.1) Magnesium Level 1.6 mg/dL (1.8-2.4) Review All relevant outside records, renal labs, imaging studies, telemetry/EKG's were reviewed. PAZ RAND MD Sep 11, 2018 13:37
[2018-09-11 14:30] LABS: CHOLESTEROL/HDL RATIO 3.8
[2018-09-11] MEDS: MULTIVIT INFUSN,ADULT 4,VIT K 10 ML, THIAMINE INJ 100 MG, FOLIC ACID INJ 1 MG in IV NOR... IV SCH (14:37)
[2018-09-11] MEDS ORDERED: LEVOTHYROXINE SODIUM IVP ONE (14:45)
[2018-09-11] MEDS ORDERED: NORMAL SALINE IVP ONE (14:45)
--- NOTE | 2018-09-11 15:18 | RAD ---
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 Comparison: September 09, 2018 Cardiomediastinal silhouette: Enlarged, stable Lungs: Mild opacity in both lung bases, appears similar to slightly worse, although that may be due to technique. Mild parahilar interstitial prominence also appears slightly greater. No new lobar consolidation. Pleura: No evidence of pleural effusion. Pneumothorax: None visualized Support Devices: Right IJ line identified with tip overlying the superior cavoatrial junction. Impression: 1. Mild infiltrate or opacity in both lungs, appears slightly worse, but that may just be due to difference in technique. No new focal consolidation. 2. Right IJ line tip overlies the superior cavoatrial region. Electronically signed by: Adolfo Urias MD (09/11/2018 3:14 PM) [id number]
[2018-09-11] MEDS: DOXYCYCLINE HYCLATE 100 MG in IV DEXTROSE 5% 100ML 100 ML IV SCH ×2 (15:40→23:18)
--- NOTE | 2018-09-11 15:50 | RAD ---
Procedure: Central line placement at the bedside Clinical Indication: 67-year-old requiring central venous access Sedation: Local anesthesia only Antibiotics: None Fluoro Time: Not applicable Contrast: None Sterility: All elements of maximal sterile barrier technique including the use of a cap, mask, sterile gown, sterile gloves, large sterile sheet, appropriate hand hygiene, and 2% chlorhexidine for cutaneous antisepsis (or acceptable alternative antiseptic per current guidelines) were followed for this procedure. Consent: The procedure was explained in its entirety to the patient or the patients designated primary care sales representative by a member of the treatment team, including a discussion of the risks, benefits and commonly accepted alternatives to the procedure, as well as the expected consequences of no therapy whatsoever. Discussion of the risks included, but was not limited to, those that are most frequent and those that are rare but possibly severe or life-threatening, as well as the possibility of unforeseen complications. Technique and Findings: Following informed consent, the patient was prepped and draped in the usual sterile fashion. Ultrasound interrogation of the right neck revealed patency and compressibility of the right internal jugular vein. A hardcopy ultrasound image was recorded. A 21-gauge micropuncture needle was used to gain access to this vein after local anesthesia was achieved with 1% Lidocaine. The needle was exchanged over the wire for a small dilator followed by a triple lumen central line. All 3 lumens flushed and aspirated with ease. The catheter was sutured to the skin and a chest x-ray was obtained to assess for line position. Complications: None Impression: 1. Central venous catheter placement as described.
--- NOTE | 2018-09-11 16:05 | PDOC2 ---
NEUROLOGY CONSULT Date of Admission Date of Admission DATE: 09/11/18 TIME: 15:43 Reason for Consult Reason for Consult: IMPRESSION: Toxic encephalopathy. Narcotics over dose. Hypertensive emergency, BP 244/127 mmHg. Hypertensive encephalopathy. Alcohol intoxication. Respiratory failure. Cardiac arrhythmia. CAD, s/p CABG. COPD. HTN,. HLD. DM. AKD. SABRINA on CPAP. Alcohol use/abuse. Obesity. RECOMMENDATIONS/PLAN: Continue life support in ICU. Brain MRI w/o contrast when stable. EEG was not able to perform on him on 09/11/18 due to not stable. Lab: see orders. BP control. Continue Lipitor HS. Treat medical diseases. He has been on anticoagulant, Coumadin. Discussed with his daughter at bedside in ICU. HISTORY OF THE PRESENT ILLNESS: 67-y-old male patient with above medical diseases and chronic back pain obtained narcotics from [place] recently. He was found MS changes to be brought to the ER of [facility]. His family found that about 14 narcotic pills were missing and patient did drink alcohol during the time when he had narcotics. Past Medical History Cardiovascular: CAD, HTN, Hyperlipidemia, Other Pulmonary: COPD CENTRAL NERVOUS SYSTEM: Other GI: GERD, Other Heme/Onc: No pertinent hx Hepatobiliary: No pertinent hx Psych: Anxiety, Other Musculoskeletal: Osteoarthritis, Other Rheumatologic: No pertinent hx Infectious disease: No pertinent hx Renal/: No pertinent hx Endocrine: Diabetes Past Surgical History CABG Family History Heart Disease Allergies Coded Allergies: Penicillins (Verified Allergy, Intermediate, PEELING HANDS; TOLERATES AMOXICILLIN, 07/14/16) celecoxib (Verified Allergy, Intermediate, "i dont know", 07/09/16) gabapentin (Verified Allergy, Intermediate, "i dont know", 07/09/16) pregabalin (Verified Allergy, Intermediate, "i dont know", 07/09/16) tadalafil (Verified Allergy, Intermediate, "i dont know", 07/09/16) terazosin (Verified Allergy, Intermediate, "i dont know", 07/09/16) varenicline (Verified Allergy, Intermediate, "i dont know" , 07/09/16) MEDICATIONS: Refer to [facility] SOCIAL HISTORY: Lives with his at home. Denies illicit drug use. He drinks alcohol heavily for many years, but stopped for 2 weeks then resumed drinking [facility]. REVIEW OF SYSTEMS: Constitutional: Obesity. Head: No recent traumatic brain or head injury. Skin: No edema, or rash. Ear: No infection. Eyes: No vision loss or color blindness. Nose: No bleeding or purulent discharges. Hearing: Hearing decrease. Neck: No injury. Cardiac: CAD, s/p CABG, HTN, HLD. Pulmonary: COPD. GI: No GI ulcer, GI bleeding. Urinary/genital: UTI. Endocrinologic: Diabetes Mellitus, obesity. Skeletomuscular: Chronic back pain. Neurological: see HP. Psychiatric: Alcohol use/abuse. Otherwise, not -uiddq review of systems. PHYSICAL EXAMINATION: General appearance is in subacute distress. HEENT: Normocephalic and nontraumatic. Eyes, nose, ears, and throat are unremarkable. Neck is supple. No lymphadenopathy. No crepitus. Cardiovascular: S1, S2. PVCs noted. Pulmonary: Decreased to auscultation bilaterally. Abdomen: Bowel sounds are positive. Abdomen is soft, nontender, and nondistended. Extremities: No rash, lesions, or edema. No restriction of range of motion NEUROLOGICAL EXAMINATION: Lethargic. Not oriented to time, place and person. PERRL. EOMI not elicited due to not follow commands. CN: no focal findings. Muscle tone: within normal. Muscle strength: Moves all extremities to stimuli. DTR: 1- Plantar reflex: Neutral response bilaterally Gait: Unable to walk. Sensory exam: Withdrawal response noted to stimuli.. Not able to access cerebellar signs in this mentation. F-T-N test not performed due to not follow commands. Current Medications Current Medications Current Medications Thiamine Mononitrate (Vitamin B-1) 100 mg 1X STAT PO Last administered on at 14:50; Start 09/09/18 at 14:38; Stop 09/09/18 at 14:41; Status DC Folic Acid (Folic Acid) 1 mg 1X STAT PO Last administered on 09/09/18at 14:50 ; Start 09/09/18 at 14:38; Stop 09/09/18 at 14:41; Status DC Sodium Chloride 1,000 ml @ 1,000 mls/hr 1X ONCE IV Last administered on 09/09at 14:50; Start 09/09/18 at 15:00; Stop 09/09/18 at 15:59; Status DC Labetalol HCl (Normodyne Iv Push) 20 mg 1X ONCE IVP Last administered on 09/09at 16:53; Start 09/09/18 at 17:00; Stop 09/09/18 at 17:01; Status DC Chlordiazepoxide (Librium) 25 mg PRN Q6HRS PRN PO ANXIETY / AGITATION Last administered on 09/09/18at 22:35; Start 09/09/18 at 17:00; Stop 09/10/18 at 10 :35; Status DC Acetaminophen (Tylenol) 500 mg PRN Q6HRS PRN PO MILD PAIN / TEMP; Start at 17:00 Morphine Sulfate (Morphine Sulfate) 2 mg PRN Q2HR PRN IV MODERATE TO SEVERE PAIN Last administered on 09/11/18at 13:51; Start 09/09/18 at 17:00 Sodium Chloride 1,000 ml @ 100 mls/hr Q10H IV Last administered on 09/09/18at 19:30; Start 09/09/18 at 18:00; Stop 09/10/18 at 10:35; Status DC Multivitamins (Thera M Plus) 1 tab DAILY PO ; Start 09/10/18 at 09:00; Stop at 13:13; Status DC Thiamine Mononitrate (Vitamin B-1) 100 mg DAILY PO ; Start 09/10/18 at 09:00; Stop 09/11/18 at 13:13; Status DC Folic Acid (Folic Acid) 1 mg DAILY PO ; Start 09/10/18 at 09:00; Stop at 13:13; Status DC Labetalol HCl (Normodyne Iv Push) 20 mg PRN Q2HR PRN IVP HYPERTENSION, SEE COMMENTS Last administered on 09/11/18at 08:27; Start 09/09/18 at 17:00 Nicotine (Nicoderm Cq 21mg) 1 patch PRN DAILY PRN TD SMOKING CESSATION; Start 09/09/18 at 17:15; Stop 09/11/18 at 13:13; Status DC Oxycodone/ Acetaminophen (Percocet 5/325) 1 tab PRN Q4HRS PRN PO MODERATE PAIN ; Start 09/09/18 at 17:15 Diphenhydramine HCl (Benadryl) 25 mg PRN QHS PRN PO INSOMNIA; Start 09/09/18 at 17:15 Aspirin (Children'S Aspirin) 81 mg DAILYWBKFT PO ; Start 09/10/18 at 08:00 Atorvastatin Calcium (Lipitor) 40 mg QHS PO Last administered on 09/09/18at 21: 11; Start 09/09/18 at 21:00 Atorvastatin Calcium (Lipitor) 40 mg QHS PO ; Start 09/09/18 at 21:00; Status UNV Duloxetine HCl (Cymbalta) 30 mg BID PO Last administered on 09/09/18at 21:12; Start 09/09/18 at 21:00; Stop 09/11/18 at 13:13; Status DC Ferrous Sulfate (Feosol) 325 mg DAILYAC PO ; Start 09/10/18 at 07:30; Stop at 13:13; Status DC Finasteride (Proscar) 5 mg DAILY PO ; Start 09/10/18 at 09:00 Lorazepam (Ativan) 0.5 mg PRN DAILY PRN PO ANXIETY / AGITATION; Start at 17:15; Stop 09/10/18 at 10:35; Status DC Metoprolol Tartrate (Lopressor) 25 mg BID PO Last administered on 09/09/18at 21 :12; Start 09/09/18 at 21:00; Stop 09/11/18 at 13:19; Status DC Pantoprazole Sodium (Protonix) 40 mg DAILYAC PO ; Start 09/10/18 at 07:30; Stop 09/11/18 at 12:20; Status DC Tamsulosin HCl (Flomax) 0.4 mg DAILY PO ; Start 09/10/18 at 09:00 Tramadol HCl (Ultram) 50 mg PRN Q6HRS PRN PO MILD TO MODERATE PAIN; Start at 17:15 Budesonide (Pulmicort) 0.5 mg RTBID NEB Last administered on 09/11/18at 08:49; Start 09/09/18 at 20:00 Diltiazem HCl (Cardizem 24hr Cd) 120 mg DAILY PO ; Start 09/10/18 at 09:00; Stop 09/11/18 at 13:13; Status DC Insulin Glargine (Lantus) 10 units QHS SQ Last administered on 09/09/18at 21:49 ; Start 09/09/18 at 21:00; Stop 09/10/18 at 10:35; Status DC Levothyroxine Sodium (Synthroid) 50 mcg DAILY06 PO ; Start 09/10/18 at 06:00 Lidocaine (Lidoderm) 1 patch DAILY TD Last administered on 09/11/18at 09:43; Start 09/10/18 at 09:00 Lisinopril (Prinivil) 2.5 mg DAILY PO ; Start 09/10/18 at 09:00; Stop at 13:13; Status DC Non-Formulary Medication (Tiotropium [place] (Spiriva)) 2 inh DAILY IH ; Start 09/10/18 at 09:00; Status UNV Warfarin Sodium (Coumadin) 7.5 mg DAILY16 PO ; Start 09/09/18 at 18:00; Stop 09/10/18 at 16:34; Status DC Insulin Human Lispro (HumaLOG) 0-9 UNITS TIDWMEALS SQ ; Start 09/10/18 at 08:00 ; Stop 09/11/18 at 13:13; Status DC Dextrose (Dextrose 50%-Water Syringe) 12.5 gm PRN Q15MIN PRN IV SEE COMMENTS; Start 09/09/18 at 17:15 Miscellaneous (Lidoderm Patch Removal) 1 ea QHS MC Last administered on at 20:49; Start 09/09/18 at 21:00 Albuterol/ Ipratropium (Duoneb) 3 ml RTQID NEB Last administered on 09/11/18at 11:33; Start 09/09/18 at 20:00 Warfarin Sodium (Coumadin Per Physician) 1 each PRN DAILY PRN MC SEE COMMENTS Last administered on 09/11/18at 11:21; Start 09/09/18 at 17:30; Stop 09/11/18 at 13:13; Status DC Sodium Chloride 1,000 ml @ 75 mls/hr [id number] IV ; Start 09/09/18 at 17:30; Stop 09/10/18 at 10:35; Status DC Lorazepam (Ativan) 2 mg 1X ONCE IV Last administered on 09/09/18at 17:30; Start 09/09/18 at 17:30; Stop 09/09/18 at 17:31; Status DC Clonidine HCl (Catapres) 0.1 mg PRN Q1HR PRN PO SBP > 180 or DBP > 100, MRX3; Start 09/09/18 at 17:30 Lorazepam (Ativan) 2 mg PRN Q15MIN PRN IV CIWA 8-14 Last administered on at 14:34; Start 09/09/18 at 17:30 Albuterol/ Ipratropium (Duoneb) 3 ml 1X ONCE NEB ; Start 09/09/18 at 17:30; Stop 09/09/18 at 17:31; Status DC Levofloxacin/ Dextrose 150 ml @ 100 mls/hr 1X ONCE IV Last administered on at 21:03; Start 09/09/18 at 17:30; Stop 09/09/18 at 18:59; Status DC Albuterol/ Ipratropium (Duoneb) 3 ml RTQID NEB ; Start 09/09/18 at 20:00; Status UNV Guaifenesin (Robitussin Dm) 10 ml PRN Q6HRS PRN PO COUGH; Start 09/09/18 at 19 :00 Levofloxacin/ Dextrose (Levaquin Per Pharmacy) 1 each PRN DAILY PRN MC SEE COMMENTS; Start 09/09/18 at 19:00; Stop 09/11/18 at 09:24; Status DC Heparin Sodium (Porcine) (Heparin Sodium) 5,000 unit Q8HRS SQ Last administered on 09/11/18at 05:48; Start 09/09/18 at 22:00 Levofloxacin/ Dextrose 50 ml @ 50 mls/hr Q24H IV ; Start 09/10/18 at 20:00; Stop 09/10/18 at 20:00; Status DC Haloperidol Lactate (Haldol Inj) 5 mg PRN Q6HRS PRN IVP AGITATION Last administered on 09/11/18at 14:34; Start 09/10/18 at 01:15 Famotidine (Pepcid Vial) 20 mg QHS IVP Last administered on 09/10/18at 20:49; Start 09/10/18 at 21:00 Methylprednisolone Sodium Succinate (SOLU-Medrol 40MG VIAL) 40 mg Q12HR IV Last administered on 09/11/18at 07:39; Start 09/10/18 at 09:00 Chlordiazepoxide (Librium) 50 mg PRN Q6HRS PRN PO ANXIETY/AGITATION, 2ND CHOICE ; Start 09/10/18 at 10:45 Lorazepam (Ativan) 1 mg PRN DAILY PRN PO ANXIETY / AGITATION; Start 09/10/18 at 10:45 Dexmedetomidine HCl 200 mcg/ Sodium Chloride 50 ml @ 0 mls/hr CONT PRN IV PER PROTOCOL Last administered on 09/11/18at 14:34; Start 09/10/18 at 13:30 Sodium Chloride 500 ml @ 500 mls/hr 1X PRN PRN IV SEE COMMENTS; Start at 13:30 Atropine Sulfate (ATROPINE 0.5mg SYRINGE) 0.5 mg PRN Q5MIN PRN IV SEE COMMENTS ; Start 09/10/18 at 13:30 Levofloxacin/ Dextrose 100 ml @ 100 mls/hr Q24H IV Last administered on at 20:48; Start 09/10/18 at 20:00; Stop 09/11/18 at 09:36; Status DC Enalaprilat (Vasotec Inj) 1.25 mg PRN Q4HRS PRN IVP HYPERTENSION, SEE COMMENTS Last administered on 09/11/18at 10:48; Start 09/11/18 at 02:45 Vancomycin HCl (Vanco Per Pharmacy) 1 each PRN DAILY PRN MC SEE COMMENTS Last administered on 09/11/18at 11:19; Start 09/11/18 at 09:15 Vancomycin HCl 2 gm/Sodium Chloride 500 ml @ 250 mls/hr 1X ONCE IV Last administered on 09/11/18at 10:40; Start 09/11/18 at 09:30; Stop 09/11/18 at 11 :29; Status DC Doxycycline Hyclate (Vibra-Tab) 100 mg BID PO ; Start 09/11/18 at 10:00; Stop 09/11/18 at 15:16; Status DC Cefepime HCl (Maxipime) 1 gm Q8H IVP Last administered on 09/11/18at 10:01; Start 09/11/18 at 10:00 Vancomycin HCl 1.75 gm/Sodium Chloride 500 ml @ 250 mls/hr Q12H IV ; Start at 23:00 Vancomycin HCl (Vancomycin Trough Level) 1 each 1X ONCE MC ; Start 09/12/18 at 22:30; Stop 09/12/18 at 22:31 Pantoprazole Sodium (PROTONIX VIAL for IV PUSH) 40 mg DAILYAC IVP Last administered on 09/11/18at 12:44; Start 09/11/18 at 12:30 Multivitamins 10 ml/Thiamine HCl 100 mg/Folic Acid 1 mg/Sodium Chloride 1,011.2 ml @ 0 mls/hr DAILY IV Last administered on 09/11/18at 14:37; Start 09/11/18 at 14:00 Insulin Human Lispro (HumaLOG) 0-7 UNITS TIDWMEALS SQ ; Start 09/11/18 at 17:00 ; Stop 09/11/18 at 17:00; Status DC Dextrose (Dextrose 50%-Water Syringe) 12.5 gm PRN Q15MIN PRN IV SEE COMMENTS; Start 09/11/18 at 13:00 Insulin Human Lispro (HumaLOG) 0-7 UNITS Q6HRS SQ ; Start 09/11/18 at 18:00 Levothyroxine Sodium 0.025 mcg/ Sodium Chloride 5 ml @ 0 mls/hr DAILY IVP ; Start 09/11/18 at 13:30; Stop 09/11/18 at 13:52; Status DC Magnesium Sulfate 50 ml @ 25 mls/hr 1X ONCE IV Last administered on at 15:40; Start 09/11/18 at 13:30; Stop 09/11/18 at 15:29; Status DC Levothyroxine Sodium 25 mcg/ Sodium Chloride 5 ml @ 0 mls/hr DAILY IVP ; Start 09/11/18 at 13:52 Levothyroxine Sodium 25 mcg/ Sodium Chloride 5 ml @ 0 mls/hr 1X ONCE IVP Last administered on 09/11/18at 14:45; Start 09/11/18 at 14:45; Stop 09/11/18 at 14 :46; Status DC Doxycycline Hyclate 100 mg/ Dextrose 100 ml @ 50 mls/hr Q12HR IV Last administered on 09/11/18at 15:40; Start 09/11/18 at 16:00 Active Scripts Active Pantoprazole Sodium 40 Mg Tablet.dr 40 Mg PO DAILYAC Lidoderm (Lidocaine) 700 Mg Adh..patch 1 Patch TD DAILY 12hours on, 12 hours off Lisinopril 2.5 Mg Tablet 2.5 Mg PO DAILY Feosol (Ferrous Sulfate) 325 Mg Tablet 325 Mg PO DAILYAC Children's Aspirin (Aspirin) 81 Mg Tab.chew 81 Mg PO DAILYWBKFT Reported Ventolin Hfa Inhaler (Albuterol Sulfate) 18 Gm Hfa.aer.ad 2 Puff INH Q4HRS Mirtazapine 45 Mg Tablet 1 Tab PO QHS Glipizide 5 Mg Tablet 1 Tab PO BID Metformin Hcl 1,000 Mg Tablet 1,000 Mg PO BIDWMEALS Lantus (Insulin Glargine,Hum.rec.anlog) 100 Unit/1 Ml Vial 50 Unit SQ HS NITROGLYCERIN SubLingual (Nitroglycerin) 0.4 Mg Tab.subl 0.4 Mg SL PRN Q5MIN PRN Fluoxetine Hcl 20 Mg Capsule 3 Cap PO DAILY Novolin R (Insulin Regular, Human) 100 Unit/1 Ml Vial 100 Unit IJ QIDACHS Vitamin D3 (Cholecalciferol (Vitamin D3)) 1,000 Unit Tablet 1 Tab PO TID Vitamin B-12 (Cyanocobalamin (Vitamin B-12)) 1,000 Mcg Tablet 1 Tab PO DAILY Gemfibrozil 600 Mg Tablet 0.5 Tab PO BID Pepcid (Famotidine) 20 Mg Tablet 10 Mg PO BID Cardizem Cd (Diltiazem Hcl) 240 Mg Cap.er.24h 1 Cap PO DAILY Robaxin (Methocarbamol) 500 Mg Tablet 1 Tab PO BID PRN Niaspan (Niacin) 500 Mg Tab.er.24h 1 Tab PO QHS Gabapentin 600 Mg Tablet 300 Mg PO QID Symbicort 80-4.5 Mcg Inhaler (Budesonide/Formoterol Fumarate) 10.2 Gm Hfa.aer.ad 2 Puff IH BID Finasteride 5 Mg Tablet 1 Tab PO DAILY Levothyroxine Sodium 50 Mcg Tablet 1 Tab PO DAILY Tamsulosin Hcl 0.4 Mg Cap.er.24h 0.4 Mg PO BID Spiriva (Tiotropium [place]) 18 Mcg Cap.w.dev 2 Inh IH DAILY Hydrocodone-Apap 7.5-325 (Hydrocodone Bit/Acetaminophen) 1 Each Tablet 1 Tab PO Q4HRS PRN Metoprolol Tartrate 25 Mg Tablet 1 Tab PO BID Allergies Allergies: Allergies Coded Allergies Type Severity Reaction Last Updated Verified Penicillins Allergy Intermediate PEELING HANDS; TOLERATES AMOXICILLIN Yes celecoxib Allergy Intermediate "i dont know" 07/09/16 Yes gabapentin Allergy Intermediate "i dont know" 07/09/16 Yes pregabalin Allergy Intermediate "i dont know" 07/09/16 Yes tadalafil Allergy Intermediate "i dont know" 07/09/16 Yes terazosin Allergy Intermediate "i dont know" 07/09/16 Yes varenicline Allergy Intermediate "i dont know" 07/09/16 Yes ROS Review of System The patient denies any associated fevers, chills, headache, ear pain, rhinorrhea , sore throat, stiff neck, productive cough, chest pain, shortness of breath, back or flank pain, abdominal pain, nausea, vomiting, diarrhea, constipation, dysuria, rash, numbness, weakness, tingling, incontinence, difficulty ambulating, or diaphoresis. Physical Exam Physical Exam General: Well developed, well nourished, no acute distress, well appearing HEENT: Pupils equally round and reactive to light, EOMI, no discharge, normal conjunctiva Neck: Supple, no nuchal rigidity, no JVD, trachea midline, no tenderness Cardiac: RRR, no murmurs, no gallops, no rubs Chest/Lungs: CTAB, no wheeze, no rhonchi, no crackles Abdomen: soft, non-distended, no guarding, no peritoneal signs, non-tender Back: No tenderness Extremities: no edema, pulses intact, non-tender,capillary refill <3 sec bilateral upper and lower extremities, Neuro: Alert and oriented x 4, no focal deficits, normal speech Vitals Vitals: Vital Signs Date Time Temp Pulse Resp B/P (MAP) Pulse Ox O2 Delivery O2 Flow Rate FiO2 09/11/18 15:00 64 28 165/82 (109) 99 BiPAP/CPAP 09/11/18 14:00 98.0 98.0 09/10/18 13:00 4.0 Labs Labs Laboratory Tests Test 09/09/18 16:13 09/09/18 17:34 09/09/18 18:00 09/10/18 05:30 Bedside Arterial pH 7.26 (7.35-7.45) Bedside Arterial pCO2 61 mmHg (35-45) Bedside Arterial pO2 68 mmHg (75-100) Arterial Blood HCO3 27 mmol/L (21-28) Bedside Arterial Blood O2 Sat 89 % (95-99) Bedside FiO2 36.0 Lactic Acid Level 2.0 mmol/L (0.4-2.0) Nasal Screen MRSA (PCR) Negative (Negative) White Blood Count 7.8 x10^3/uL (4.0-11.0) Red Blood Count 4.29 x10^6/uL (4.30-5.70) Hemoglobin 12.1 g/dL (13.0-17.5) Hematocrit 36.1 % (39.0-53.0) Mean Corpuscular Volume 84 fL (79-100) Mean Corpuscular Hemoglobin 28 pg (25-35) Mean Corpuscular Hemoglobin Concent 33 g/dL (31-37) Red Cell Distribution Width 14.6 % (11.5-14.5) Platelet Count 244 x10^3/uL (140-400) Neutrophils (%) (Auto) 72 % (31-73) Lymphocytes (%) (Auto) 17 % (24-48) Monocytes (%) (Auto) 10 % (0-9) Eosinophils (%) (Auto) 1 % (0-3) Basophils (%) (Auto) 1 % (0-3) Neutrophils # (Auto) 5.6 x10^3uL (1.8-7.7) Lymphocytes # (Auto) 1.3 x10^3/uL (1.0-4.8) Monocytes # (Auto) 0.8 x10^3/uL (0.0-1.1) Eosinophils # (Auto) 0.0 x10^3/uL (0.0-0.7) Basophils # (Auto) 0.1 x10^3/uL (0.0-0.2) Sodium Level 139 mmol/L (136-145) Potassium Level 4.2 mmol/L (3.5-5.1) Chloride Level 101 mmol/L (98-107) Carbon Dioxide Level 32 mmol/L (21-32) Anion Gap 6 (6-14) Blood Urea Nitrogen 21 mg/dL (8-26) Creatinine 1.0 mg/dL (0.7-1.3) Estimated GFR (Cockcroft-Gault) 74.1 Glucose Level 120 mg/dL (70-99) Calcium Level 8.9 mg/dL (8.5-10.1) Test 09/10/18 08:00 09/10/18 08:15 09/10/18 14:04 09/10/18 17:55 O2 Saturation 94 % (92-99) Arterial Blood pH 7.35 (7.35-7.45) Arterial Blood pCO2 at Patient Temp 59 mmHg (35-46) Arterial Blood pO2 at Patient Temp 76 mmHg (65-108) Arterial Blood HCO3 32 mmol/L (21-28) Arterial Blood Base Excess 5 mmol/L (-3-3) FiO2 35 Glucose (Fingerstick) 96 mg/dL (70-99) 124 mg/dL (70-99) 196 mg/dL (70-99) Test 09/11/18 03:33 09/11/18 05:33 09/11/18 11:23 Procalcitonin < 0.10 ng/mL (0.00-0.10) Prothrombin Time 14.0 SEC (11.7-14.0) Prothromb Time International Ratio 1.1 (0.8-1.1) Activated Partial Thromboplast Time 28 SEC (24-38) Sodium Level 138 mmol/L (136-145) Potassium Level 5.0 mmol/L (3.5-5.1) Chloride Level 101 mmol/L (98-107) Carbon Dioxide Level 28 mmol/L (21-32) Anion Gap 9 (6-14) Blood Urea Nitrogen 19 mg/dL (8-26) Creatinine 1.0 mg/dL (0.7-1.3) Estimated GFR (Cockcroft-Gault) 74.1 Glucose Level 173 mg/dL (70-99) Calcium Level 8.8 mg/dL (8.5-10.1) Magnesium Level 1.6 mg/dL (1.8-2.4) Triglycerides Level 155 mg/dL (0-150) Cholesterol Level 242 mg/dL (0-200) LDL Cholesterol, Calculated 147 mg/dL (0-100) VLDL Cholesterol, Calculated 31 mg/dL (0-40) Non-HDL Cholesterol Calculated 178 mg/dL (0-129) HDL Cholesterol 64 mg/dL (40-60) Cholesterol/HDL Ratio 3.8 Glucose (Fingerstick) 153 mg/dL (70-99) Laboratory Tests Test 09/10/18 17:55 09/11/18 03:33 09/11/18 05:33 09/11/18 11:23 Glucose (Fingerstick) 196 mg/dL (70-99) 153 mg/dL (70-99) Procalcitonin < 0.10 ng/mL (0.00-0.10) Prothrombin Time 14.0 SEC (11.7-14.0) Prothromb Time International Ratio 1.1 (0.8-1.1) Activated Partial Thromboplast Time 28 SEC (24-38) Sodium Level 138 mmol/L (136-145) Potassium Level 5.0 mmol/L (3.5-5.1) Chloride Level 101 mmol/L (98-107) Carbon Dioxide Level 28 mmol/L (21-32) Anion Gap 9 (6-14) Blood Urea Nitrogen 19 mg/dL (8-26) Creatinine 1.0 mg/dL (0.7-1.3) Estimated GFR (Cockcroft-Gault) 74.1 Glucose Level 173 mg/dL (70-99) Calcium Level 8.8 mg/dL (8.5-10.1) Magnesium Level 1.6 mg/dL (1.8-2.4) Triglycerides Level 155 mg/dL (0-150) Cholesterol Level 242 mg/dL (0-200) LDL Cholesterol, Calculated 147 mg/dL (0-100) VLDL Cholesterol, Calculated 31 mg/dL (0-40) Non-HDL Cholesterol Calculated 178 mg/dL (0-129) HDL Cholesterol 64 mg/dL (40-60) Cholesterol/HDL Ratio 3.8 ADI MOON MD Sep 11, 2018 16:05
[2018-09-11] MEDS ORDERED: INSULIN LISPRO 300 UNITS/3 ML INSULN.PEN. SQ SCH (17:00)
--- NOTE | 2018-09-11 19:19 | CONS ---
DATE OF CONSULTATION: 09/11/2018 LOCATION: The patient is in room ICU 3. REQUESTING PHYSICIAN: Dr. Casillas. REASON FOR CONSULTATION: Bacteremia. HISTORY OF PRESENT ILLNESS: The patient is a 67-year-old who normally goes to the [place] to get his [place] care. His states that for the last month, she has noted some mental status changes. Additionally, he has been having increased pain in his back, which has limited his functional ability. According to the family, he was seen at the [place] and was prescribed hydrocodone this past Tuesday or so and it appears that he has taken somewhat of an excessive amount. He developed worsening mental status changes, inability to walk and some tremors. He was brought to [facility] on 09/09/2018. Of note, he does have an alcohol history; however, this has been discontinued for approximately a month. On arrival, he had a white count of 10.3, but he did have 92 segs and 1 band. He underwent a chest x-ray, which showed some patchy opacities in the right lung base and findings of COPD. CT scan of the head showed no acute intracranial bleed and there were some white matter changes. He was placed on levofloxacin. Cultures were obtained. His blood pressure has remained elevated and this morning, he developed a temperature of 100.1 axillary. Blood cultures this morning returned positive for 2 out of 4 bottles for Gram-positive cocci. I was consulted and instituted vancomycin. Additionally, it was listed that he had been on Coumadin and has a history of SVT. I therefore discontinued levofloxacin and changed him to doxycycline for coverage for atypical organisms. Additionally, I added cefepime presents with community-acquired pneumonia. Currently, the patient is on BiPAP. He is unable to provide any past medical history, history of present illness or review of systems. PAST MEDICAL HISTORY: Positive for E. coli sepsis, E. coli urinary tract infection, morbid obesity, chronic kidney disease, COPD, coronary artery disease, hypertension, hyperlipidemia, gastroesophageal reflux disease, diabetes, chronic alcohol abuse, abdominal aortic aneurysm. He also has a history of compression fractures in L1 and L4 and history of urinary obstruction as well. PAST SURGICAL HISTORY: Positive for endovascular stent and coronary artery bypass grafting. REVIEW OF SYSTEMS: Unobtainable. ALLERGIES: LISTED PENICILLIN, BUT HE HAS TAKEN CEPHALOSPORINS AND AMOXICILLIN ACCORDING TO THE PREVIOUS NOTES, GABAPENTIN, PREGABALIN, TADALAFIL, TERAZOSIN, VARENICLINE AND CELECOXIB ARE ALSO LISTED. SOCIAL HISTORY: He is . His is here. He has got a history of alcohol abuse. He is a . He does have a previous history of smoking as well. FAMILY HISTORY: Positive for heart disease. CURRENT MEDICATIONS: Again includes levofloxacin as listed. Coumadin has been listed. Home medications, budesonide, gabapentin, niacin, hydrocodone, Lidoderm patch, methocarbamol, diltiazem, Prevacid, gemfibrozil, finasteride, fluoxetine, detemir, pantoprazole, metformin, levothyroxine, tamsulosin, lisinopril, metoprolol, glipizide, albuterol and ipratropium. Other meds are available and have been reviewed and these are his outpatient medications. PHYSICAL EXAMINATION: VITAL SIGNS: T-max and current 100.1 axillary, pulse 77, respirations 28, blood pressure 201/89, satting 94% on BiPAP. HEENT: Pupils are equal and reactive. He has normal conjunctivae. NECK: Supple. No gross JVD. LUNGS: Decreased in the bases. HEART: S1, S2, mild tachycardia. ABDOMEN: Obese, soft with decreased bowel sounds. GENITOURINARY: Mary is in place. He has got blood-tinged urine. EXTREMITIES: Without clubbing, cyanosis or gross edema. SKIN: Warm to touch without generalized signs of rash. Peripheral IVs are clean. NEUROLOGIC: He is confused. LABORATORY DATA: From 09/10/2018, white count 7.8, hemoglobin 12.1, platelets 244, neutrophils 72, lymphs are 17. Today, glucose of 173. Creatinine of 1, was 2.3 on arrival. AST was 47, ALT was 51. Creatine kinase was 849. Troponin was 0.037. RADIOLOGY: Reviewed in the history of present illness. IMPRESSION: 1. Fever. 2. Bacteremia, 2 out of 4, present on admission with Gram-positive cocci. 3. PENICILLIN allergy, but has tolerated amoxicillin in the past. 4. History of supraventricular tachycardia. 5. Acute respiratory failure, questionable community-acquired pneumonia with his acute exacerbation of chronic obstructive pulmonary disease. 6. Drug overdose on hydrocodone. 7. Hematuria. 8. History of compression fractures. 9. History of alcohol abuse. RECOMMENDATIONS: 1. Instituted vancomycin, discontinue Levaquin with a history of supraventricular tachycardia and Coumadin per chart, but again, on discussing with the family, he was off of Coumadin recently. Did order coags. 2. Added doxycycline and cefepime. 3. Currently on Solu-Medrol. 4. We will follow up labs, cultures. He may need MRI of his back. 5. Await Neurology evaluation. May need Cardiology evaluation. [facility]. He has had x-rays of the back that showed old compression fractures that was performed on 09/08/2018. Chest x-ray had no acute pulmonary process on 09/08/2018. He also underwent a myocardial SPECT scan on 08/24/2018 that showed no stress-induced ischemia. states that he has had a negative colonoscopy recently. This was discussed with the family. I spent 35 minutes of critical care time. Thank you again for allowing me to participate in the patient's care. If you have any further questions, please do not hesitate to contact me. YAAKOV DYER MD DR: JANI/christiano JOB#: [id number] / [id number]
[2018-09-11] MEDS: PATCH REMOVAL. MC SCH (21:00)
[2018-09-11] MEDS: ATORVASTATIN CALCIUM 40 MG TABLET. PO SCH (21:00)
[2018-09-11] MEDS: FAMOTIDINE 20 MG/2 ML VIAL IVP SCH (21:17)
[2018-09-11] MEDS: VANCOMYCIN 1.75 GM in IV NORMAL SALINE 500ML BAG 500 ML IV SCH (22:27)
[2018-09-12] VITALS (24 sets, daily range): BP systolic 132–208; BP diastolic 72–105
[2018-09-12] MEDS: DEXMEDETOMIDINE 200 MCG in IV NORMAL SALINE 50ML 48 ML IV PRN ×20 (00:08→23:27)
[2018-09-12] MEDS: ENALAPRILAT 1.25 MG/ML VIAL. IVP PRN ×3 (00:52→20:19)
[2018-09-12] MEDS: MORPHINE SULFATE 4 MG/ML VIAL. IV PRN ×5 (01:17→11:14)
[2018-09-12] MEDS: CEFEPIME HCL IV Push 1 GM VIAL. IVP SCH ×3 (01:55→17:03)
[2018-09-12] MEDS: LABETALOL 20 MG/4 ML DISP.SYRIN. IVP PRN ×3 (02:20→19:43)
[2018-09-12] MEDS: HEPARIN for SUB-Q USE 5,000 UNIT/ML VIAL. SQ SCH (06:00)
[2018-09-12] MEDS: LEVOTHYROXINE 50 MCG TABLET PO SCH (06:00)
[2018-09-12] MEDS: INSULIN LISPRO 300 UNITS/3 ML INSULN.PEN. SQ SCH ×5 (06:00→23:48)
[2018-09-12 06:19] LABS: BASO # 0.1 x10^3/uL (0.0-0.2); BASO % 1 % (0-3); EOS % 0 % (0-3); HEMATOCRIT 39.2 % (39.0-53.0); HEMOGLOBIN 13.1 g/dL (13.0-17.5); LYMPH # 1.7 x10^3/uL (1.0-4.8); LYMPH % 16 % (24-48); MEAN CORPUSCULAR HEMOGLOBIN 28 pg (25-35); MEAN CORPUSCULAR HGB CONC 34 g/dL (31-37); MEAN CORPUSCULAR VOLUME 84 fL (79-100); MONO # 1.1 x10^3/uL (0.0-1.1); MONO % 11 % (0-9); NEUT # 7.7 x10^3uL (1.8-7.7); NEUT % 72 % (31-73); PLATELET COUNT 224 x10^3/uL (140-400); RED BLOOD COUNT 4.68 x10^6/uL (4.30-5.70); RED CELL DISTRIBUTION WIDTH 14.2 % (11.5-14.5); WHITE BLOOD COUNT 10.7 x10^3/uL (4.0-11.0)
[2018-09-12 06:21] LABS: CALCIUM 8.6 mg/dL (8.5-10.1); CREATININE 0.9 mg/dL (0.7-1.3); GFR 83.7; MAGNESIUM 1.5 mg/dL (1.8-2.4); POTASSIUM 4.6 mmol/L (3.5-5.1)
[2018-09-12] MEDS: MULTIVIT INFUSN,ADULT 4,VIT K 10 ML, THIAMINE INJ 100 MG, FOLIC ACID INJ 1 MG in IV NOR... IV SCH (06:21)
--- NOTE | 2018-09-12 07:31 | PDOC ---
Infectious Disease Note Subjective Subjective On bipap and agitated at times ROS ROS unobtainable Vital Sign Vital Signs Vital Signs Date Time Temp Pulse Resp B/P (MAP) Pulse Ox O2 Delivery O2 Flow Rate FiO2 09/12/18 07:00 84 25 185/86 (119) 95 BiPAP/CPAP 09/12/18 04:29 4.0 09/12/18 04:00 98.4 98.4 Physical Exam PHYSICAL EXAM GEN: appears comfortable currently - on Bipap HEENT: Pupils are equal and reactive. He has normal conjunctivae.but some suffusion NECK: Supple. No gross JVD. LUNGS: Decreased in the bases. HEART: S1, S2, mild tachycardia. ABDOMEN: Obese, soft with decreased bowel sounds. GENITOURINARY: Mary is in place. He has less blood-tinged urine. EXTREMITIES: Without clubbing, cyanosis or gross edema. SKIN: Warm to touch without generalized signs of rash. Peripheral IVs are clean. NEUROLOGIC: He is confused. RIJ - clean. Right foot Labs Lab Laboratory Tests Test 09/11/18 11:23 09/11/18 17:00 09/11/18 17:37 09/12/18 00:13 Glucose (Fingerstick) 153 mg/dL (70-99) 159 mg/dL (70-99) 129 mg/dL (70-99) Erythrocyte Sedimentation Rate 6 (0-15) Test 09/12/18 06:01 09/12/18 06:05 Glucose (Fingerstick) 118 mg/dL (70-99) White Blood Count 10.7 x10^3/uL (4.0-11.0) Red Blood Count 4.68 x10^6/uL (4.30-5.70) Hemoglobin 13.1 g/dL (13.0-17.5) Hematocrit 39.2 % (39.0-53.0) Mean Corpuscular Volume 84 fL (79-100) Mean Corpuscular Hemoglobin 28 pg (25-35) Mean Corpuscular Hemoglobin Concent 34 g/dL (31-37) Red Cell Distribution Width 14.2 % (11.5-14.5) Platelet Count 224 x10^3/uL (140-400) Neutrophils (%) (Auto) 72 % (31-73) Lymphocytes (%) (Auto) 16 % (24-48) Monocytes (%) (Auto) 11 % (0-9) Eosinophils (%) (Auto) 0 % (0-3) Basophils (%) (Auto) 1 % (0-3) Neutrophils # (Auto) 7.7 x10^3uL (1.8-7.7) Lymphocytes # (Auto) 1.7 x10^3/uL (1.0-4.8) Monocytes # (Auto) 1.1 x10^3/uL (0.0-1.1) Eosinophils # (Auto) 0.0 x10^3/uL (0.0-0.7) Basophils # (Auto) 0.1 x10^3/uL (0.0-0.2) Sodium Level 136 mmol/L (136-145) Potassium Level 4.6 mmol/L (3.5-5.1) Chloride Level 102 mmol/L (98-107) Carbon Dioxide Level 27 mmol/L (21-32) Anion Gap 7 (6-14) Blood Urea Nitrogen 19 mg/dL (8-26) Creatinine 0.9 mg/dL (0.7-1.3) Estimated GFR (Cockcroft-Gault) 83.7 Glucose Level 135 mg/dL (70-99) Calcium Level 8.6 mg/dL (8.5-10.1) Magnesium Level 1.5 mg/dL (1.8-2.4) Micro Microbiology 09/09/18 Blood Culture - Preliminary, Resulted NO GROWTH AFTER 1 DAY Objective Assessment Fever- better - procalcitonin and Sed rate normal Bacteremia ? sepsis 2/4 POA - GPC - ID pending Encephalopathy - on Ativan/Precedex PCN allergy - has had amox H/o SVT Acute Resp failure - ? CAP vs AECOPD - on Bipap - on steroids HTN DO - hydrocodone Hematuria H/o Compression fractures h/o ETOH abuse Plan Plan of Care Cont Vanc Doxy and cefepime D/c foot IV - d/w nursing F/u ECHO F/u labs and cults may need MRI of Back Critically ill YAAKOV DYER MD Sep 12, 2018 07:31
[2018-09-12] MEDS: PANTOPRAZOLE IV PUSH 40 MG VIAL. IVP SCH (07:40)
[2018-09-12] MEDS: methylPREDNISolone SOD SUCC PF 40 MG/ML VIAL. IV SCH ×2 (07:40→20:47)
[2018-09-12] MEDS: DOXYCYCLINE HYCLATE 100 MG in IV DEXTROSE 5% 100ML 100 ML IV SCH ×2 (07:45→20:48)
[2018-09-12] MEDS: LIDOCAINE (700MG/PATCH) PATCH. TD SCH (07:45)
[2018-09-12] MEDS: TAMSULOSIN 0.4 MG CAP.ER.24H. PO SCH (07:47)
[2018-09-12] MEDS: IPRATRPIUM/ALBUTEROL 0.5/2.5MG 3 ML NEBU. NEB SCH ×4 (07:47→19:53)
[2018-09-12] MEDS: ASPIRIN CHEWABLE 81 MG TABLET. PO SCH (07:47)
[2018-09-12] MEDS: BUDESONIDE 0.5 MG/2 ML NEBU. NEB SCH (07:47)
[2018-09-12] MEDS: FINASTERIDE 5 MG TABLET. PO SCH (07:48)
--- NOTE | 2018-09-12 09:19 | PDOC ---
SUBJECTIVE ROS On Bipap OBJECTIVE Vital Signs Vital Signs Date Time Temp Pulse Resp B/P (MAP) Pulse Ox O2 Delivery O2 Flow Rate FiO2 09/12/18 08:00 75 25 180/86 (117) 96 BiPAP/CPAP 09/12/18 04:29 4.0 09/12/18 04:00 98.4 98.4 I & 0 Intake and Output 09/12/18 07:00 Intake Total 4161 ml Output Total 2275 ml Balance 1886 ml Intake Oral 0 ml IV Total 4161 ml Output Urine Total 2275 ml PHYSICAL EXAM Physical Exam GEN: on Bipap HEENT: OM moist NECK: Supple. LUNGS: Decreased in the bases. HEART: S1, S2, ABDOMEN: Obese, : Mary is in place EXTREMITIES:No edema NEUROLOGIC: confused. DIAGNOSIS/ASSESSMENT Assessment & Plan WARREN-vasomotor Renal function back to normal , Good UOP Electrolytes and acid base stable Pneumonia- On Abx DM- as per primary Abdominal aortic aneurysm s/p endoluminal stent graft. HTN- BP improved Will sign off COMMENT/RELEVANT DATA Meds Current Medications Medications (Trade) Dose Ordered Sig/Drew Start Time Stop Time Status Last Admin Dose Admin Acetaminophen (Tylenol) 500 mg PRN Q6HRS PRN 09/09/18 17:00 Albuterol/ Ipratropium (Duoneb) 3 ml RTQID 09/09/18 20:00 UNV Aspirin (Children'S Aspirin) 81 mg DAILYWBKFT 09/10/18 08:00 Atorvastatin Calcium (Lipitor) 40 mg QHS 09/09/18 21:00 UNV Atropine Sulfate (ATROPINE 0.5mg SYRINGE) 0.5 mg PRN Q5MIN PRN 09/10/18 13:30 Budesonide (Pulmicort) 0.5 mg RTBID 09/09/18 20:00 09/12/18 07:47 0.5 MG Cefepime HCl (Maxipime) 1 gm Q8H 09/11/18 10:00 09/12/18 01:55 1 GM Chlordiazepoxide (Librium) 50 mg PRN Q6HRS PRN 09/10/18 10:45 Clonidine HCl (Catapres) 0.1 mg PRN Q1HR PRN 09/09/18 17:30 Dexmedetomidine HCl 200 mcg/ Sodium Chloride 50 ml @ 0 mls/hr CONT PRN 09/10/18 13:30 09/12/18 08:54 34.4 MLS/HR Dextrose (Dextrose 50%-Water Syringe) 12.5 gm PRN Q15MIN PRN 09/11/18 13:00 Diltiazem HCl (Cardizem 24hr Cd) 120 mg DAILY 09/10/18 09:00 09/11/18 13:13 DC Diphenhydramine HCl (Benadryl) 25 mg PRN QHS PRN 09/09/18 17:15 Doxycycline Hyclate (Vibra-Tab) 100 mg BID 09/11/18 10:00 09/11/18 15:16 DC Doxycycline Hyclate 100 mg/ Dextrose 100 ml @ 50 mls/hr Q12HR 09/11/18 16:00 09/12/18 07:45 50 MLS/HR Duloxetine HCl (Cymbalta) 30 mg BID 09/09/18 21:00 09/11/18 13:13 DC 09/09/18 21:12 30 MG Enalaprilat (Vasotec Inj) 1.25 mg PRN Q4HRS PRN 09/11/18 02:45 09/12/18 04:51 1.25 MG Famotidine (Pepcid Vial) 20 mg QHS 09/10/18 21:00 09/11/18 21:17 20 MG Ferrous Sulfate (Feosol) 325 mg DAILYAC 09/10/18 07:30 09/11/18 13:13 DC Finasteride (Proscar) 5 mg DAILY 09/10/18 09:00 Folic Acid (Folic Acid) 1 mg DAILY 09/10/18 09:00 09/11/18 13:13 DC Guaifenesin (Robitussin Dm) 10 ml PRN Q6HRS PRN 09/09/18 19:00 Haloperidol Lactate (Haldol Inj) 5 mg PRN Q6HRS PRN 09/10/18 01:15 09/11/18 22:29 5 MG Heparin Sodium (Porcine) (Heparin Sodium) 5,000 unit Q8HRS 09/09/18 22:00 09/11/18 05:48 5,000 UNIT Insulin Glargine (Lantus) 10 units QHS 09/09/18 21:00 09/10/18 10:35 DC 09/09/18 21:49 10 UNITS Insulin Human Lispro (HumaLOG) 0-7 UNITS Q6HRS 09/11/18 18:00 Labetalol HCl (Normodyne Iv Push) 20 mg PRN Q2HR PRN 09/09/18 17:00 09/12/18 06:22 20 MG Levofloxacin/ Dextrose 100 ml @ 100 mls/hr Q24H 09/10/18 20:00 09/11/18 09:36 DC 09/10/18 20:48 100 MLS/HR Levofloxacin/ Dextrose (Levaquin Per Pharmacy) 1 each PRN DAILY PRN 09/09/18 19:00 09/11/18 09:24 DC Levothyroxine Sodium (Synthroid) 50 mcg DAILY06 09/10/18 06:00 Levothyroxine Sodium 0.025 mcg/ Sodium Chloride 5 ml @ 0 mls/hr DAILY 09/11/18 13:30 09/11/18 13:52 DC Levothyroxine Sodium 25 mcg/ Sodium Chloride 5 ml @ 0 mls/hr 1X ONCE 09/11/18 14:45 09/11/18 14:46 DC 09/11/18 14:45 5 MLS/HR Lidocaine (Lidoderm) 1 patch DAILY 09/10/18 09:00 09/12/18 07:45 1 PATCH Lisinopril (Prinivil) 2.5 mg DAILY 09/10/18 09:00 09/11/18 13:13 DC Lorazepam (Ativan) 1 mg PRN DAILY PRN 09/10/18 10:45 Magnesium Sulfate 50 ml @ 25 mls/hr 1X ONCE 09/11/18 13:30 09/11/18 15:29 DC 09/11/18 15:40 25 MLS/HR Methylprednisolone Sodium Succinate (SOLU-Medrol 40MG VIAL) 40 mg Q12HR 09/10/18 09:00 09/12/18 07:40 40 MG Metoprolol Tartrate (Lopressor) 25 mg BID 09/09/18 21:00 09/11/18 13:19 DC 09/09/18 21:12 25 MG Miscellaneous (Lidoderm Patch Removal) 1 ea QHS 09/09/18 21:00 09/11/18 21:00 1 EA Morphine Sulfate (Morphine Sulfate) 2 mg PRN Q2HR PRN 09/09/18 17:00 09/12/18 06:22 2 MG Multivitamins (Thera M Plus) 1 tab DAILY 09/10/18 09:00 09/11/18 13:13 DC Multivitamins 10 ml/Thiamine HCl 100 mg/Folic Acid 1 mg/Sodium Chloride 1,011.2 ml @ 0 mls/hr DAILY 09/11/18 14:00 09/12/18 06:21 100 MLS/HR Nicotine (Nicoderm Cq 21mg) 1 patch PRN DAILY PRN 09/09/18 17:15 09/11/18 13:13 DC Non-Formulary Medication (Tiotropium [place] (Spiriva)) 2 inh DAILY 09/10/18 09:00 UNV Oxycodone/ Acetaminophen (Percocet 5/325) 1 tab PRN Q4HRS PRN 09/09/18 17:15 Pantoprazole Sodium (PROTONIX VIAL for IV PUSH) 40 mg DAILYAC 09/11/18 12:30 09/12/18 07:40 40 MG Pantoprazole Sodium (Protonix) 40 mg DAILYAC 09/10/18 07:30 09/11/18 12:20 DC Sodium Chloride 500 ml @ 500 mls/hr 1X PRN PRN 09/10/18 13:30 Tamsulosin HCl (Flomax) 0.4 mg DAILY 09/10/18 09:00 Thiamine Mononitrate (Vitamin B-1) 100 mg DAILY 09/10/18 09:00 09/11/18 13:13 DC Tramadol HCl (Ultram) 50 mg PRN Q6HRS PRN 09/09/18 17:15 Vancomycin HCl (Vanco Per Pharmacy) 1 each PRN DAILY PRN 09/11/18 09:15 09/11/18 11:19 1 EACH Vancomycin HCl (Vancomycin Trough Level) 1 each 1X ONCE 09/12/18 22:30 09/12/18 22:31 Vancomycin HCl 1.75 gm/Sodium Chloride 500 ml @ 250 mls/hr Q12H 09/11/18 23:00 09/11/18 22:27 250 MLS/HR Vancomycin HCl 2 gm/Sodium Chloride 500 ml @ 250 mls/hr 1X ONCE 09/11/18 09:30 09/11/18 11:29 DC 12/17/18 10:40 250 MLS/HR Warfarin Sodium (Coumadin Per Physician) 1 each PRN DAILY PRN 09/09/18 17:30 09/11/18 13:13 DC 09/11/18 11:21 1 EACH Warfarin Sodium (Coumadin) 7.5 mg DAILY16 09/09/18 18:00 18 16:34 DC Lab Laboratory Tests Test 09/11/18 11:23 09/11/18 17:00 09/11/18 17:37 09/12/18 00:13 Glucose (Fingerstick) 153 mg/dL (70-99) 159 mg/dL (70-99) 129 mg/dL (70-99) Erythrocyte Sedimentation Rate 6 (0-15) Test 09/12/18 06:01 09/12/18 06:05 Glucose (Fingerstick) 118 mg/dL (70-99) White Blood Count 10.7 x10^3/uL (4.0-11.0) Red Blood Count 4.68 x10^6/uL (4.30-5.70) Hemoglobin 13.1 g/dL (13.0-17.5) Hematocrit 39.2 % (39.0-53.0) Mean Corpuscular Volume 84 fL (79-100) Mean Corpuscular Hemoglobin 28 pg (25-35) Mean Corpuscular Hemoglobin Concent 34 g/dL (31-37) Red Cell Distribution Width 14.2 % (11.5-14.5) Platelet Count 224 x10^3/uL (140-400) Neutrophils (%) (Auto) 72 % (31-73) Lymphocytes (%) (Auto) 16 % (24-48) Monocytes (%) (Auto) 11 % (0-9) Eosinophils (%) (Auto) 0 % (0-3) Basophils (%) (Auto) 1 % (0-3) Neutrophils # (Auto) 7.7 x10^3uL (1.8-7.7) Lymphocytes # (Auto) 1.7 x10^3/uL (1.0-4.8) Monocytes # (Auto) 1.1 x10^3/uL (0.0-1.1) Eosinophils # (Auto) 0.0 x10^3/uL (0.0-0.7) Basophils # (Auto) 0.1 x10^3/uL (0.0-0.2) Sodium Level 136 mmol/L (136-145) Potassium Level 4.6 mmol/L (3.5-5.1) Chloride Level 102 mmol/L (98-107) Carbon Dioxide Level 27 mmol/L (21-32) Anion Gap 7 (6-14) Blood Urea Nitrogen 19 mg/dL (8-26) Creatinine 0.9 mg/dL (0.7-1.3) Estimated GFR (Cockcroft-Gault) 83.7 Glucose Level 135 mg/dL (70-99) Calcium Level 8.6 mg/dL (8.5-10.1) Magnesium Level 1.5 mg/dL (1.8-2.4) Results All relevant outside records, renal labs, imaging studies, telemetry/EKG's were reviewed. PAZ RAND MD Sep 12, 2018 09:19
[2018-09-12] MEDS: LEVOTHYROXINE SODIUM IVP SCH (09:25)
[2018-09-12] MEDS: NORMAL SALINE IVP SCH (09:25)
--- NOTE | 2018-09-12 09:37 | PDOC ---
PULMONARY PROGRESS NOTES Subjective CONFUSED ON BIPAP AGITATED AT TIMES Vitals Vital Signs Date Time Temp Pulse Resp B/P (MAP) Pulse Ox O2 Delivery O2 Flow Rate FiO2 09/12/18 09:24 20 94 BiPAP/CPAP 09/12/18 09:00 98.6 64 160/79 (106) 98.6 09/12/18 04:29 4.0 General: Confused Lungs: Crackles Cardiovascular: S1, S2 Abdomen: Soft, Other (OBESE) Extremities: Other (EDEMA) Skin: Warm Labs Laboratory Tests Test 09/10/18 14:04 09/10/18 17:55 09/11/18 03:33 09/11/18 05:33 Glucose (Fingerstick) 124 mg/dL (70-99) 196 mg/dL (70-99) Procalcitonin < 0.10 ng/mL (0.00-0.10) Prothrombin Time 14.0 SEC (11.7-14.0) Prothromb Time International Ratio 1.1 (0.8-1.1) Activated Partial Thromboplast Time 28 SEC (24-38) Sodium Level 138 mmol/L (136-145) Potassium Level 5.0 mmol/L (3.5-5.1) Chloride Level 101 mmol/L (98-107) Carbon Dioxide Level 28 mmol/L (21-32) Anion Gap 9 (6-14) Blood Urea Nitrogen 19 mg/dL (8-26) Creatinine 1.0 mg/dL (0.7-1.3) Estimated GFR (Cockcroft-Gault) 74.1 Glucose Level 173 mg/dL (70-99) Calcium Level 8.8 mg/dL (8.5-10.1) Magnesium Level 1.6 mg/dL (1.8-2.4) Triglycerides Level 155 mg/dL (0-150) Cholesterol Level 242 mg/dL (0-200) LDL Cholesterol, Calculated 147 mg/dL (0-100) VLDL Cholesterol, Calculated 31 mg/dL (0-40) Non-HDL Cholesterol Calculated 178 mg/dL (0-129) HDL Cholesterol 64 mg/dL (40-60) Cholesterol/HDL Ratio 3.8 Test 09/11/18 11:23 09/11/18 17:00 09/11/18 17:37 09/12/18 00:13 Glucose (Fingerstick) 153 mg/dL (70-99) 159 mg/dL (70-99) 129 mg/dL (70-99) Erythrocyte Sedimentation Rate 6 (0-15) Test 09/12/18 06:01 09/12/18 06:05 Glucose (Fingerstick) 118 mg/dL (70-99) White Blood Count 10.7 x10^3/uL (4.0-11.0) Red Blood Count 4.68 x10^6/uL (4.30-5.70) Hemoglobin 13.1 g/dL (13.0-17.5) Hematocrit 39.2 % (39.0-53.0) Mean Corpuscular Volume 84 fL (79-100) Mean Corpuscular Hemoglobin 28 pg (25-35) Mean Corpuscular Hemoglobin Concent 34 g/dL (31-37) Red Cell Distribution Width 14.2 % (11.5-14.5) Platelet Count 224 x10^3/uL (140-400) Neutrophils (%) (Auto) 72 % (31-73) Lymphocytes (%) (Auto) 16 % (24-48) Monocytes (%) (Auto) 11 % (0-9) Eosinophils (%) (Auto) 0 % (0-3) Basophils (%) (Auto) 1 % (0-3) Neutrophils # (Auto) 7.7 x10^3uL (1.8-7.7) Lymphocytes # (Auto) 1.7 x10^3/uL (1.0-4.8) Monocytes # (Auto) 1.1 x10^3/uL (0.0-1.1) Eosinophils # (Auto) 0.0 x10^3/uL (0.0-0.7) Basophils # (Auto) 0.1 x10^3/uL (0.0-0.2) Sodium Level 136 mmol/L (136-145) Potassium Level 4.6 mmol/L (3.5-5.1) Chloride Level 102 mmol/L (98-107) Carbon Dioxide Level 27 mmol/L (21-32) Anion Gap 7 (6-14) Blood Urea Nitrogen 19 mg/dL (8-26) Creatinine 0.9 mg/dL (0.7-1.3) Estimated GFR (Cockcroft-Gault) 83.7 Glucose Level 135 mg/dL (70-99) Calcium Level 8.6 mg/dL (8.5-10.1) Magnesium Level 1.5 mg/dL (1.8-2.4) Laboratory Tests Test 09/11/18 11:23 18 17:00 09/11/18 17:37 09/12/18 00:13 Glucose (Fingerstick) 153 mg/dL (70-99) 159 mg/dL (70-99) 129 mg/dL (70-99) Erythrocyte Sedimentation Rate 6 (0-15) Test 09/12/18 06:01 09/12/18 06:05 Glucose (Fingerstick) 118 mg/dL (70-99) White Blood Count 10.7 x10^3/uL (4.0-11.0) Red Blood Count 4.68 x10^6/uL (4.30-5.70) Hemoglobin 13.1 g/dL (13.0-17.5) Hematocrit 39.2 % (39.0-53.0) Mean Corpuscular Volume 84 fL (79-100) Mean Corpuscular Hemoglobin 28 pg (25-35) Mean Corpuscular Hemoglobin Concent 34 g/dL (31-37) Red Cell Distribution Width 14.2 % (11.5-14.5) Platelet Count 224 x10^3/uL (140-400) Neutrophils (%) (Auto) 72 % (31-73) Lymphocytes (%) (Auto) 16 % (24-48) Monocytes (%) (Auto) 11 % (0-9) Eosinophils (%) (Auto) 0 % (0-3) Basophils (%) (Auto) 1 % (0-3) Neutrophils # (Auto) 7.7 x10^3uL (1.8-7.7) Lymphocytes # (Auto) 1.7 x10^3/uL (1.0-4.8) Monocytes # (Auto) 1.1 x10^3/uL (0.0-1.1) Eosinophils # (Auto) 0.0 x10^3/uL (0.0-0.7) Basophils # (Auto) 0.1 x10^3/uL (0.0-0.2) Sodium Level 136 mmol/L (136-145) Potassium Level 4.6 mmol/L (3.5-5.1) Chloride Level 102 mmol/L (98-107) Carbon Dioxide Level 27 mmol/L (21-32) Anion Gap 7 (6-14) Blood Urea Nitrogen 19 mg/dL (8-26) Creatinine 0.9 mg/dL (0.7-1.3) Estimated GFR (Cockcroft-Gault) 83.7 Glucose Level 135 mg/dL (70-99) Calcium Level 8.6 mg/dL (8.5-10.1) Magnesium Level 1.5 mg/dL (1.8-2.4) Medications Active Scripts Medications Dose Route/Sig Max Daily Dose Days Date Category Dose Instructions Ventolin Hfa Inhaler (Albuterol Sulfate) 18 Gm Hfa.aer.ad 2 Puff INH Q4HRS 09/11/18 Reported Mirtazapine 45 Mg Tablet 1 Tab PO QHS 09/11/18 Reported Glipizide 5 Mg Tablet 1 Tab PO BID 09/11/18 Reported Metformin Hcl 1,000 Mg Tablet 1,000 Mg PO BIDWMEALS 09/11/18 Reported Lantus (Insulin Glargine,Hum.rec.anlog) 100 Unit/1 Ml Vial 50 Unit SQ HS 09/11/18 Reported NITROGLYCERIN SubLingual (Nitroglycerin) 0.4 Mg Tab.subl 0.4 Mg SL PRN Q5MIN PRN 09/11/18 Reported Fluoxetine Hcl 20 Mg Capsule 3 Cap PO DAILY 09/11/18 Reported Novolin R (Insulin Regular, Human) 100 Unit/1 Ml Vial 100 Unit IJ QIDACHS 09/11/18 Reported Vitamin D3 (Cholecalciferol (Vitamin D3)) 1,000 Unit Tablet 1 Tab PO TID 09/11/18 Reported Vitamin B-12 (Cyanocobalamin (Vitamin B-12)) 1,000 Mcg Tablet 1 Tab PO DAILY 09/11/18 Reported Gemfibrozil 600 Mg Tablet 0.5 Tab PO BID 09/11/18 Reported Pepcid (Famotidine) 20 Mg Tablet 10 Mg PO BID 09/11/18 Reported Cardizem Cd (Diltiazem Hcl) 240 Mg Cap.er.24h 1 Cap PO DAILY 09/11/18 Reported Robaxin (Methocarbamol) 500 Mg Tablet 1 Tab PO BID PRN 09/11/18 Reported Niaspan (Niacin) 500 Mg Tab.er.24h 1 Tab PO QHS 09/11/18 Reported Gabapentin 600 Mg Tablet 300 Mg PO QID 09/11/18 Reported Pantoprazole Sodium 40 Mg Tablet.dr 40 Mg PO DAILYAC 07/16/16 Rx Lidoderm (Lidocaine) 700 Mg Adh..patch 1 Patch TD DAILY 07/16/16 Rx 12hours on, 12 hours off Lisinopril 2.5 Mg Tablet 2.5 Mg PO DAILY 07/16/16 Rx Feosol (Ferrous Sulfate) 325 Mg Tablet 325 Mg PO DAILYAC 07/16/16 Rx Children's Aspirin (Aspirin) 81 Mg Tab.chew 81 Mg PO DAILYWBKFT 07/16/16 Rx Symbicort 80-4.5 Mcg Inhaler (Budesonide/Formoterol Fumarate) 10.2 Gm Hfa.aer.ad 2 Puff IH BID 07/09/16 Reported Finasteride 5 Mg Tablet 1 Tab PO DAILY 07/09/16 Reported Levothyroxine Sodium 50 Mcg Tablet 1 Tab PO DAILY 07/09/16 Reported Tamsulosin Hcl 0.4 Mg Cap.er.24h 0.4 Mg PO BID 07/09/16 Reported Spiriva (Tiotropium Ferris) 18 Mcg Cap.w.dev 2 Inh IH DAILY 07/09/16 Reported Hydrocodone-Apap 7.5-325 (Hydrocodone Bit/Acetaminophen) 1 Each Tablet 1 Tab PO Q4HRS PRN 07/09/16 Reported Metoprolol Tartrate 25 Mg Tablet 1 Tab PO BID 07/09/16 Reported Comments IMPRESSION: Mild patchy opacities in the right lung base may be secondary to subsegmental atelectasis or pneumonia. Findings of COPD. Impression . IMPRESSION: 1. Acute hypoxemic respiratory failure, multifactorial in etiolog 2. Abnormal chest x-ray/PNEUMONIA 3. Acute exacerbation of chronic obstructive pulmonary disease. 4. Acute bronchitis versus pneumonia. 5. METABOLIC/TOXIC Encephalopathy POA 6. Acute kidney injury. 7. Obstructive sleep apnea-hypopnea syndrome. 8. CAD S/P CABG 9. Hypertension. 10. BACTEREMIA/SEPSIS PER ID CXR 09/11 Impression: 1. Mild infiltrate or opacity in both lungs, appears slightly worse, but that may just be due to difference in technique. No new focal consolidation. 2. Right IJ line tip overlies the superior cavoatrial region. Plan . D/C PRECEDEX START HALDOL ATNIBX PER ID D/W FAMILY WILL SUPPORT D/W CARD CONTINUE BIPAP DIFFICULT SITUATION WITH ENCEPHALOPATHY NEED TO FIND A BALANCE WITH NARCOTIS/SEDATION STEROIDS ANTIBX CCT 30 MIN ARLYN FENTON MD Sep 12, 2018 09:37
[2018-09-12] MEDS: VANCOMYCIN 1.75 GM in IV NORMAL SALINE 500ML BAG 500 ML IV SCH ×2 (10:47→22:58)
--- NOTE | 2018-09-12 11:28 | PDOC ---
PROGRESS NOTES Chief Complaint Chief Complaint Hypercapnic/hypoxic respiratory failure in a super morbidly obese on NIPPV SABRINA, need CPAP at night Possible pickwickian syndrome CAP/atelectasis on chest x-ray History of CAD, CABG COPD flare History of sepsis/UTI History of IBS, alternating bowel movements History of alcoholism AK I on CK D/ VMN Diabetes Acute on chronic back pain-took 15 Trinity in the last 12 hours because of back pain Accel hypertension History of Present Illness History of Present Illness Patient seen and examined at bedside. Spoke to nursing at bedside. Spoke with pts. family at bedside Vitals Vitals Vital Signs Date Time Temp Pulse Resp B/P (MAP) Pulse Ox O2 Delivery O2 Flow Rate FiO2 09/12/18 11:14 23 96 BiPAP/CPAP 09/12/18 11:00 81 155/76 (102) 09/12/18 09:00 98.6 98.6 09/12/18 04:29 4.0 Physical Exam Physical Exam GEN: appears comfortable currently - on Bipap HEENT: Pupils are equal and reactive. He has normal conjunctivae.but some suffusion NECK: Supple. No gross JVD. LUNGS: Decreased in the bases. HEART: S1, S2, mild tachycardia. ABDOMEN: Obese, soft with decreased bowel sounds. GENITOURINARY: Mary is in place. He has less blood-tinged urine. EXTREMITIES: Without clubbing, cyanosis or gross edema. SKIN: Warm to touch without generalized signs of rash. Peripheral IVs are clean. NEUROLOGIC: He is confused. RIJ - clean. Right foot General: No acute distress, Other (confused) Heart: Regular rate, Normal S1, Normal S2, Other (distant heart tones. ) Lungs: Crackles Abdomen: Soft, Other (obese) Extremities: No edema, Normal pulses Skin: No significant lesion Labs LABS Laboratory Tests Test 09/11/18 17:00 09/11/18 17:37 09/12/18 00:13 09/12/18 06:01 Erythrocyte Sedimentation Rate 6 (0-15) Glucose (Fingerstick) 159 mg/dL (70-99) 129 mg/dL (70-99) 118 mg/dL (70-99) Test 09/12/18 06:05 White Blood Count 10.7 x10^3/uL (4.0-11.0) Red Blood Count 4.68 x10^6/uL (4.30-5.70) Hemoglobin 13.1 g/dL (13.0-17.5) Hematocrit 39.2 % (39.0-53.0) Mean Corpuscular Volume 84 fL (79-100) Mean Corpuscular Hemoglobin 28 pg (25-35) Mean Corpuscular Hemoglobin Concent 34 g/dL (31-37) Red Cell Distribution Width 14.2 % (11.5-14.5) Platelet Count 224 x10^3/uL (140-400) Neutrophils (%) (Auto) 72 % (31-73) Lymphocytes (%) (Auto) 16 % (24-48) Monocytes (%) (Auto) 11 % (0-9) Eosinophils (%) (Auto) 0 % (0-3) Basophils (%) (Auto) 1 % (0-3) Neutrophils # (Auto) 7.7 x10^3uL (1.8-7.7) Lymphocytes # (Auto) 1.7 x10^3/uL (1.0-4.8) Monocytes # (Auto) 1.1 x10^3/uL (0.0-1.1) Eosinophils # (Auto) 0.0 x10^3/uL (0.0-0.7) Basophils # (Auto) 0.1 x10^3/uL (0.0-0.2) Sodium Level 136 mmol/L (136-145) Potassium Level 4.6 mmol/L (3.5-5.1) Chloride Level 102 mmol/L (98-107) Carbon Dioxide Level 27 mmol/L (21-32) Anion Gap 7 (6-14) Blood Urea Nitrogen 19 mg/dL (8-26) Creatinine 0.9 mg/dL (0.7-1.3) Estimated GFR (Cockcroft-Gault) 83.7 Glucose Level 135 mg/dL (70-99) Calcium Level 8.6 mg/dL (8.5-10.1) Magnesium Level 1.5 mg/dL (1.8-2.4) Review of Systems Review of Systems unable to obtain Assessment and Plan Assessmemt and Plan Assessment Hypercapnic/hypoxic respiratory failure in a super morbidly obese on NIPPV SABRINA, need CPAP at night Possible pickwickian syndrome CAP/atelectasis on chest x-ray History of CAD, CABG COPD flare History of sepsis/UTI History of IBS, alternating bowel movements History of alcoholism AK I on CK D/ VMN Diabetes Acute on chronic back pain-took 15 Trinity in the last 12 hours because of back pain Accel hypertension Plan Continue BiPaP per pulmonology D/C Heparin Procalamine Continue ICU monitoring Plan for possible DC of sedation tomorrow Comment Review of Relevant I have reviewed the following items barby (where applicable) has been applied. Labs Laboratory Tests Test 09/10/18 14:04 09/10/18 17:55 09/11/18 03:33 09/11/18 05:33 Glucose (Fingerstick) 124 mg/dL (70-99) 196 mg/dL (70-99) Procalcitonin < 0.10 ng/mL (0.00-0.10) Prothrombin Time 14.0 SEC (11.7-14.0) Prothromb Time International Ratio 1.1 (0.8-1.1) Activated Partial Thromboplast Time 28 SEC (24-38) Sodium Level 138 mmol/L (136-145) Potassium Level 5.0 mmol/L (3.5-5.1) Chloride Level 101 mmol/L (98-107) Carbon Dioxide Level 28 mmol/L (21-32) Anion Gap 9 (6-14) Blood Urea Nitrogen 19 mg/dL (8-26) Creatinine 1.0 mg/dL (0.7-1.3) Estimated GFR (Cockcroft-Gault) 74.1 Glucose Level 173 mg/dL (70-99) Calcium Level 8.8 mg/dL (8.5-10.1) Magnesium Level 1.6 mg/dL (1.8-2.4) Triglycerides Level 155 mg/dL (0-150) Cholesterol Level 242 mg/dL (0-200) LDL Cholesterol, Calculated 147 mg/dL (0-100) VLDL Cholesterol, Calculated 31 mg/dL (0-40) Non-HDL Cholesterol Calculated 178 mg/dL (0-129) HDL Cholesterol 64 mg/dL (40-60) Cholesterol/HDL Ratio 3.8 Test 09/11/18 11:23 09/11/18 17:00 09/11/18 17:37 09/12/18 00:13 Glucose (Fingerstick) 153 mg/dL (70-99) 159 mg/dL (70-99) 129 mg/dL (70-99) Erythrocyte Sedimentation Rate 6 (0-15) Test 09/12/18 06:01 09/12/18 06:05 Glucose (Fingerstick) 118 mg/dL (70-99) White Blood Count 10.7 x10^3/uL (4.0-11.0) Red Blood Count 4.68 x10^6/uL (4.30-5.70) Hemoglobin 13.1 g/dL (13.0-17.5) Hematocrit 39.2 % (39.0-53.0) Mean Corpuscular Volume 84 fL (79-100) Mean Corpuscular Hemoglobin 28 pg (25-35) Mean Corpuscular Hemoglobin Concent 34 g/dL (31-37) Red Cell Distribution Width 14.2 % (11.5-14.5) Platelet Count 224 x10^3/uL (140-400) Neutrophils (%) (Auto) 72 % (31-73) Lymphocytes (%) (Auto) 16 % (24-48) Monocytes (%) (Auto) 11 % (0-9) Eosinophils (%) (Auto) 0 % (0-3) Basophils (%) (Auto) 1 % (0-3) Neutrophils # (Auto) 7.7 x10^3uL (1.8-7.7) Lymphocytes # (Auto) 1.7 x10^3/uL (1.0-4.8) Monocytes # (Auto) 1.1 x10^3/uL (0.0-1.1) Eosinophils # (Auto) 0.0 x10^3/uL (0.0-0.7) Basophils # (Auto) 0.1 x10^3/uL (0.0-0.2) Sodium Level 136 mmol/L (136-145) Potassium Level 4.6 mmol/L (3.5-5.1) Chloride Level 102 mmol/L (98-107) Carbon Dioxide Level 27 mmol/L (21-32) Anion Gap 7 (6-14) Blood Urea Nitrogen 19 mg/dL (8-26) Creatinine 0.9 mg/dL (0.7-1.3) Estimated GFR (Cockcroft-Gault) 83.7 Glucose Level 135 mg/dL (70-99) Calcium Level 8.6 mg/dL (8.5-10.1) Magnesium Level 1.5 mg/dL (1.8-2.4) Laboratory Tests Test 09/11/18 17:00 09/11/18 17:37 09/12/18 00:13 09/12/18 06:01 Erythrocyte Sedimentation Rate 6 (0-15) Glucose (Fingerstick) 159 mg/dL (70-99) 129 mg/dL (70-99) 118 mg/dL (70-99) Test 09/12/18 06:05 White Blood Count 10.7 x10^3/uL (4.0-11.0) Red Blood Count 4.68 x10^6/uL (4.30-5.70) Hemoglobin 13.1 g/dL (13.0-17.5) Hematocrit 39.2 % (39.0-53.0) Mean Corpuscular Volume 84 fL (79-100) Mean Corpuscular Hemoglobin 28 pg (25-35) Mean Corpuscular Hemoglobin Concent 34 g/dL (31-37) Red Cell Distribution Width 14.2 % (11.5-14.5) Platelet Count 224 x10^3/uL (140-400) Neutrophils (%) (Auto) 72 % (31-73) Lymphocytes (%) (Auto) 16 % (24-48) Monocytes (%) (Auto) 11 % (0-9) Eosinophils (%) (Auto) 0 % (0-3) Basophils (%) (Auto) 1 % (0-3) Neutrophils # (Auto) 7.7 x10^3uL (1.8-7.7) Lymphocytes # (Auto) 1.7 x10^3/uL (1.0-4.8) Monocytes # (Auto) 1.1 x10^3/uL (0.0-1.1) Eosinophils # (Auto) 0.0 x10^3/uL (0.0-0.7) Basophils # (Auto) 0.1 x10^3/uL (0.0-0.2) Sodium Level 136 mmol/L (136-145) Potassium Level 4.6 mmol/L (3.5-5.1) Chloride Level 102 mmol/L (98-107) Carbon Dioxide Level 27 mmol/L (21-32) Anion Gap 7 (6-14) Blood Urea Nitrogen 19 mg/dL (8-26) Creatinine 0.9 mg/dL (0.7-1.3) Estimated GFR (Cockcroft-Gault) 83.7 Glucose Level 135 mg/dL (70-99) Calcium Level 8.6 mg/dL (8.5-10.1) Magnesium Level 1.5 mg/dL (1.8-2.4) Microbiology 09/09/18 Blood Culture - Preliminary, Resulted NO GROWTH AFTER 2 DAYS Medications Current Medications Thiamine Mononitrate (Vitamin B-1) 100 mg 1X STAT PO Last administered on at 14:50; Start 09/09/18 at 14:38; Stop 09/09/18 at 14:41; Status DC Folic Acid (Folic Acid) 1 mg 1X STAT PO Last administered on 09/09/18at 14:50 ; Start 09/09/18 at 14:38; Stop 09/09/18 at 14:41; Status DC Sodium Chloride 1,000 ml @ 1,000 mls/hr 1X ONCE IV Last administered on 09/09at 14:50; Start 09/09/18 at 15:00; Stop 09/09/18 at 15:59; Status DC Labetalol HCl (Normodyne Iv Push) 20 mg 1X ONCE IVP Last administered on 09/09at 16:53; Start 09/09/18 at 17:00; Stop 09/09/18 at 17:01; Status DC Chlordiazepoxide (Librium) 25 mg PRN Q6HRS PRN PO ANXIETY / AGITATION Last administered on 09/09/18at 22:35; Start 09/09/18 at 17:00; Stop 09/10/18 at 10 :35; Status DC Acetaminophen (Tylenol) 500 mg PRN Q6HRS PRN PO MILD PAIN / TEMP; Start at 17:00 Morphine Sulfate (Morphine Sulfate) 2 mg PRN Q2HR PRN IV MODERATE TO SEVERE PAIN Last administered on 09/12/18at 11:14; Start 09/09/18 at 17:00 Sodium Chloride 1,000 ml @ 100 mls/hr Q10H IV Last administered on 09/09/18at 19:30; Start 09/09/18 at 18:00; Stop 09/10/18 at 10:35; Status DC Multivitamins (Thera M Plus) 1 tab DAILY PO ; Start 09/10/18 at 09:00; Stop at 13:13; Status DC Thiamine Mononitrate (Vitamin B-1) 100 mg DAILY PO ; Start 09/10/18 at 09:00; Stop 09/11/18 at 13:13; Status DC Folic Acid (Folic Acid) 1 mg DAILY PO ; Start 09/10/18 at 09:00; Stop at 13:13; Status DC Labetalol HCl (Normodyne Iv Push) 20 mg PRN Q2HR PRN IVP HYPERTENSION, SEE COMMENTS Last administered on 09/12/18at 06:22; Start 09/09/18 at 17:00 Nicotine (Nicoderm Cq 21mg) 1 patch PRN DAILY PRN TD SMOKING CESSATION; Start 09/09/18 at 17:15; Stop 09/11/18 at 13:13; Status DC Oxycodone/ Acetaminophen (Percocet 5/325) 1 tab PRN Q4HRS PRN PO MODERATE PAIN ; Start 09/09/18 at 17:15 Diphenhydramine HCl (Benadryl) 25 mg PRN QHS PRN PO INSOMNIA; Start 09/09/18 at 17:15 Aspirin (Children'S Aspirin) 81 mg DAILYWBKFT PO ; Start 09/10/18 at 08:00; Stop 09/12/18 at 09:56; Status DC Atorvastatin Calcium (Lipitor) 40 mg QHS PO Last administered on 09/09/18at 21: 11; Start 09/09/18 at 21:00; Stop 09/12/18 at 09:56; Status DC Atorvastatin Calcium (Lipitor) 40 mg QHS PO ; Start 09/09/18 at 21:00; Status UNV Duloxetine HCl (Cymbalta) 30 mg BID PO Last administered on 09/09/18at 21:12; Start 09/09/18 at 21:00; Stop 09/11/18 at 13:13; Status DC Ferrous Sulfate (Feosol) 325 mg DAILYAC PO ; Start 09/10/18 at 07:30; Stop at 13:13; Status DC Finasteride (Proscar) 5 mg DAILY PO ; Start 09/10/18 at 09:00; Stop 09/12/18 at 09:56; Status DC Lorazepam (Ativan) 0.5 mg PRN DAILY PRN PO ANXIETY / AGITATION; Start at 17:15; Stop 09/10/18 at 10:35; Status DC Metoprolol Tartrate (Lopressor) 25 mg BID PO Last administered on 09/09/18at 21 :12; Start 09/09/18 at 21:00; Stop 09/11/18 at 13:19; Status DC Pantoprazole Sodium (Protonix) 40 mg DAILYAC PO ; Start 09/10/18 at 07:30; Stop 09/11/18 at 12:20; Status DC Tamsulosin HCl (Flomax) 0.4 mg DAILY PO ; Start 09/10/18 at 09:00; Stop at 09:56; Status DC Tramadol HCl (Ultram) 50 mg PRN Q6HRS PRN PO MODERATE PAIN; Start 09/09/18 at 17:15 Budesonide (Pulmicort) 0.5 mg RTBID NEB Last administered on 09/12/18at 07:47; Start 09/09/18 at 20:00 Diltiazem HCl (Cardizem 24hr Cd) 120 mg DAILY PO ; Start 09/10/18 at 09:00; Stop 09/11/18 at 13:13; Status DC Insulin Glargine (Lantus) 10 units QHS SQ Last administered on 09/09/18at 21:49 ; Start 09/09/18 at 21:00; Stop 09/10/18 at 10:35; Status DC Levothyroxine Sodium (Synthroid) 50 mcg DAILY06 PO ; Start 09/10/18 at 06:00; Stop 09/12/18 at 09:56; Status DC Lidocaine (Lidoderm) 1 patch DAILY TD Last administered on 09/12/18at 07:45; Start 09/10/18 at 09:00 Lisinopril (Prinivil) 2.5 mg DAILY PO ; Start 09/10/18 at 09:00; Stop at 13:13; Status DC Non-Formulary Medication (Tiotropium [place] (Spiriva)) 2 inh DAILY IH ; Start 09/10/18 at 09:00; Status UNV Warfarin Sodium (Coumadin) 7.5 mg DAILY16 PO ; Start 09/09/18 at 18:00; Stop 09/10/18 at 16:34; Status DC Insulin Human Lispro (HumaLOG) 0-9 UNITS TIDWMEALS SQ ; Start 09/10/18 at 08:00 ; Stop 09/11/18 at 13:13; Status DC Dextrose (Dextrose 50%-Water Syringe) 12.5 gm PRN Q15MIN PRN IV SEE COMMENTS; Start 09/09/18 at 17:15; Stop 09/12/18 at 08:17; Status DC Miscellaneous (Lidoderm Patch Removal) 1 ea QHS MC Last administered on at 21:00; Start 09/09/18 at 21:00 Albuterol/ Ipratropium (Duoneb) 3 ml RTQID NEB Last administered on 09/12/18at 07:47; Start 09/09/18 at 20:00 Warfarin Sodium (Coumadin Per Physician) 1 each PRN DAILY PRN MC SEE COMMENTS Last administered on 09/11/18at 11:21; Start 09/09/18 at 17:30; Stop 09/11/18 at 13:13; Status DC Sodium Chloride 1,000 ml @ 75 mls/hr [id number] IV ; Start 09/09/18 at 17:30; Stop 09/10/18 at 10:35; Status DC Lorazepam (Ativan) 2 mg 1X ONCE IV Last administered on 09/09/18at 17:30; Start 09/09/18 at 17:30; Stop 09/09/18 at 17:31; Status DC Clonidine HCl (Catapres) 0.1 mg PRN Q1HR PRN PO SBP > 180 or DBP > 100, MRX3; Start 09/09/18 at 17:30 Lorazepam (Ativan) 2 mg PRN Q15MIN PRN IV CIWA 8-14 Last administered on at 14:34; Start 09/09/18 at 17:30 Albuterol/ Ipratropium (Duoneb) 3 ml 1X ONCE NEB ; Start 09/09/18 at 17:30; Stop 09/09/18 at 17:31; Status DC Levofloxacin/ Dextrose 150 ml @ 100 mls/hr 1X ONCE IV Last administered on at 21:03; Start 09/09/18 at 17:30; Stop 09/09/18 at 18:59; Status DC Albuterol/ Ipratropium (Duoneb) 3 ml RTQID NEB ; Start 09/09/18 at 20:00; Status UNV Guaifenesin (Robitussin Dm) 10 ml PRN Q6HRS PRN PO COUGH; Start 09/09/18 at 19 :00 Levofloxacin/ Dextrose (Levaquin Per Pharmacy) 1 each PRN DAILY PRN MC SEE COMMENTS; Start 09/09/18 at 19:00; Stop 09/11/18 at 09:24; Status DC Heparin Sodium (Porcine) (Heparin Sodium) 5,000 unit Q8HRS SQ Last administered on 09/11/18at 05:48; Start 09/09/18 at 22:00; Stop 09/12/18 at 11 :01; Status DC Levofloxacin/ Dextrose 50 ml @ 50 mls/hr Q24H IV ; Start 09/10/18 at 20:00; Stop 09/10/18 at 20:00; Status DC Haloperidol Lactate (Haldol Inj) 5 mg PRN Q6HRS PRN IVP AGITATION Last administered on 09/11/18at 22:29; Start 09/10/18 at 01:15 Famotidine (Pepcid Vial) 20 mg QHS IVP Last administered on 09/11/18at 21:17; Start 09/10/18 at 21:00 Methylprednisolone Sodium Succinate (SOLU-Medrol 40MG VIAL) 40 mg Q12HR IV Last administered on 09/12/18at 07:40; Start 09/10/18 at 09:00 Chlordiazepoxide (Librium) 50 mg PRN Q6HRS PRN PO ANXIETY/AGITATION, 2ND CHOICE ; Start 09/10/18 at 10:45 Lorazepam (Ativan) 1 mg PRN DAILY PRN PO ANXIETY / AGITATION; Start 09/10/18 at 10:45 Dexmedetomidine HCl 200 mcg/ Sodium Chloride 50 ml @ 0 mls/hr CONT PRN IV PER PROTOCOL Last administered on 09/12/18at 10:47; Start 09/10/18 at 13:30 Sodium Chloride 500 ml @ 500 mls/hr 1X PRN PRN IV SEE COMMENTS; Start at 13:30 Atropine Sulfate (ATROPINE 0.5mg SYRINGE) 0.5 mg PRN Q5MIN PRN IV SEE COMMENTS ; Start 09/10/18 at 13:30 Levofloxacin/ Dextrose 100 ml @ 100 mls/hr Q24H IV Last administered on at 20:48; Start 09/10/18 at 20:00; Stop 09/11/18 at 09:36; Status DC Enalaprilat (Vasotec Inj) 1.25 mg PRN Q4HRS PRN IVP HYPERTENSION, SEE COMMENTS Last administered on 09/12/18at 04:51; Start 09/11/18 at 02:45 Vancomycin HCl (Vanco Per Pharmacy) 1 each PRN DAILY PRN MC SEE COMMENTS Last administered on 09/11/18at 11:19; Start 09/11/18 at 09:15 Vancomycin HCl 2 gm/Sodium Chloride 500 ml @ 250 mls/hr 1X ONCE IV Last administered on 09/11/18at 10:40; Start 09/11/18 at 09:30; Stop 09/11/18 at 11 :29; Status DC Doxycycline Hyclate (Vibra-Tab) 100 mg BID PO ; Start 09/11/18 at 10:00; Stop 09/11/18 at 15:16; Status DC Cefepime HCl (Maxipime) 1 gm Q8H IVP Last administered on 09/12/18at 09:25; Start 09/11/18 at 10:00 Vancomycin HCl 1.75 gm/Sodium Chloride 500 ml @ 250 mls/hr Q12H IV Last administered on 09/12/18at 10:47; Start 09/11/18 at 23:00 Vancomycin HCl (Vancomycin Trough Level) 1 each 1X ONCE MC ; Start 09/12/18 at 22:30; Stop 09/12/18 at 22:31 Pantoprazole Sodium (PROTONIX VIAL for IV PUSH) 40 mg DAILYAC IVP Last administered on 09/12/18at 07:40; Start 09/11/18 at 12:30 Multivitamins 10 ml/Thiamine HCl 100 mg/Folic Acid 1 mg/Sodium Chloride 1,011.2 ml @ 0 mls/hr DAILY IV Last administered on 09/12/18at 06:21; Start 09/11/18 at 14:00 Insulin Human Lispro (HumaLOG) 0-7 UNITS TIDWMEALS SQ ; Start 09/11/18 at 17:00 ; Stop 09/11/18 at 17:00; Status DC Dextrose (Dextrose 50%-Water Syringe) 12.5 gm PRN Q15MIN PRN IV SEE COMMENTS; Start 09/11/18 at 13:00 Insulin Human Lispro (HumaLOG) 0-7 UNITS Q6HRS SQ ; Start 09/11/18 at 18:00 Levothyroxine Sodium 0.025 mcg/ Sodium Chloride 5 ml @ 0 mls/hr DAILY IVP ; Start 09/11/18 at 13:30; Stop 09/11/18 at 13:52; Status DC Magnesium Sulfate 50 ml @ 25 mls/hr 1X ONCE IV Last administered on at 15:40; Start 09/11/18 at 13:30; Stop 09/11/18 at 15:29; Status DC Levothyroxine Sodium 25 mcg/ Sodium Chloride 5 ml @ 0 mls/hr DAILY IVP Last administered on 09/12/18at 09:25; Start 09/11/18 at 13:52 Levothyroxine Sodium 25 mcg/ Sodium Chloride 5 ml @ 0 mls/hr 1X ONCE IVP Last administered on 09/11/18at 14:45; Start 09/11/18 at 14:45; Stop 09/11/18 at 14 :46; Status DC Doxycycline Hyclate 100 mg/ Dextrose 100 ml @ 50 mls/hr Q12HR IV Last administered on 09/12/18at 07:45; Start 09/11/18 at 16:00 Magnesium Sulfate 50 ml @ 25 mls/hr 1X ONCE IV ; Start 09/12/18 at 11:30; Stop 09/12/18 at 13:29 Active Scripts Active Pantoprazole Sodium 40 Mg Tablet.dr 40 Mg PO DAILYAC Lidoderm (Lidocaine) 700 Mg Adh..patch 1 Patch TD DAILY 12hours on, 12 hours off Lisinopril 2.5 Mg Tablet 2.5 Mg PO DAILY Feosol (Ferrous Sulfate) 325 Mg Tablet 325 Mg PO DAILYAC Children's Aspirin (Aspirin) 81 Mg Tab.chew 81 Mg PO DAILYWBKFT Reported Ventolin Hfa Inhaler (Albuterol Sulfate) 18 Gm Hfa.aer.ad 2 Puff INH Q4HRS Mirtazapine 45 Mg Tablet 1 Tab PO QHS Glipizide 5 Mg Tablet 1 Tab PO BID Metformin Hcl 1,000 Mg Tablet 1,000 Mg PO BIDWMEALS Lantus (Insulin Glargine,Hum.rec.anlog) 100 Unit/1 Ml Vial 50 Unit SQ HS NITROGLYCERIN SubLingual (Nitroglycerin) 0.4 Mg Tab.subl 0.4 Mg SL PRN Q5MIN PRN Fluoxetine Hcl 20 Mg Capsule 3 Cap PO DAILY Novolin R (Insulin Regular, Human) 100 Unit/1 Ml Vial 100 Unit IJ QIDACHS Vitamin D3 (Cholecalciferol (Vitamin D3)) 1,000 Unit Tablet 1 Tab PO TID Vitamin B-12 (Cyanocobalamin (Vitamin B-12)) 1,000 Mcg Tablet 1 Tab PO DAILY Gemfibrozil 600 Mg Tablet 0.5 Tab PO BID Pepcid (Famotidine) 20 Mg Tablet 10 Mg PO BID Cardizem Cd (Diltiazem Hcl) 240 Mg Cap.er.24h 1 Cap PO DAILY Robaxin (Methocarbamol) 500 Mg Tablet 1 Tab PO BID PRN Niaspan (Niacin) 500 Mg Tab.er.24h 1 Tab PO QHS Gabapentin 600 Mg Tablet 300 Mg PO QID Symbicort 80-4.5 Mcg Inhaler (Budesonide/Formoterol Fumarate) 10.2 Gm Hfa.aer.ad 2 Puff IH BID Finasteride 5 Mg Tablet 1 Tab PO DAILY Levothyroxine Sodium 50 Mcg Tablet 1 Tab PO DAILY Tamsulosin Hcl 0.4 Mg Cap.er.24h 0.4 Mg PO BID Spiriva (Tiotropium [place]) 18 Mcg Cap.w.dev 2 Inh IH DAILY Hydrocodone-Apap 7.5-325 (Hydrocodone Bit/Acetaminophen) 1 Each Tablet 1 Tab PO Q4HRS PRN Metoprolol Tartrate 25 Mg Tablet 1 Tab PO BID Vitals/I & O Vital Sign - Last 24 Hours 09/11/18 09/11/18 09/11/18 09/11/18 11:33 12:00 12:00 13:00 Pulse 84 85 Resp 24 28 B/P (MAP) 200/94 (129) 143/72 (95) Pulse Ox 97 96 96 O2 Delivery BiPAP/CPAP Bi-pap BiPAP/CPAP BiPAP/CPAP 09/11/18 09/11/18 09/11/18 18 13:51 14:00 15:00 15:35 Temp 98.0 98.0 Pulse 78 64 Resp 24 28 B/P (MAP) 155/78 (103) 165/82 (109) Pulse Ox 96 96 99 97 O2 Delivery BiPAP/CPAP BiPAP/CPAP BiPAP/CPAP 09/11/18 17/18 09/11/18 18 15:59 16:00 16:00 17:00 Temp 98.6 98.6 Pulse 92 90 82 Resp 28 28 B/P (MAP) 174/95 174/95 (121) 192/94 (126) Pulse Ox 96 96 O2 Delivery BiPAP/CPAP Bi-pap BiPAP/CPAP 18 09/11/18 09/11/18 09/11/18 18:00 18:34 19:00 19:22 Pulse 81 81 70 Resp 28 23 26 B/P (MAP) 200/92 (128) 200/92 198/84 (122) Pulse Ox 95 95 96 O2 Delivery BiPAP/CPAP BiPAP/CPAP BiPAP/CPAP 09/11/18 09/11/18 09/11/18 18 19:48 20:00 20:00 21:00 Temp 98.4 98.4 Pulse 64 62 Resp 25 23 B/P (MAP) 193/89 (123) 190/97 (128) Pulse Ox 96 96 96 O2 Delivery BiPAP/CPAP Bi-pap BiPAP/CPAP BiPAP/CPAP 18 09/11/18 09/11/18 18 21:17 21:18 21:55 22:00 Pulse 83 60 Resp 22 26 B/P (MAP) 190/97 179/85 (116) Pulse Ox 96 96 95 O2 Delivery BiPAP/CPAP BiPAP/CPAP BiPAP/CPAP 09/11/18 09/11/18 09/11/18 18 23:00 23:18 23:18 23:30 Pulse 95 70 Resp 30 36 B/P (MAP) 198/80 (119) 198/80 Pulse Ox 97 97 98 O2 Delivery BiPAP/CPAP BiPAP/CPAP BiPAP/CPAP O2 Flow Rate 4.0 09/11/1818/18 09/12/18 12/18/18 23:59 00:00 00:52 01:00 Temp 98.1 98.1 Pulse 81 84 82 Resp 36 24 B/P (MAP) 197/103 (134) 207/105 207/105 (139) Pulse Ox 95 95 O2 Delivery Bi-pap BiPAP/CPAP BiPAP/CPAP 18 18 18 09/12/18 01:17 01:47 02:00 02:20 Pulse 87 85 Resp 24 23 B/P (MAP) 201/93 (129) 201/93 Pulse Ox 95 95 O2 Delivery BiPAP/CPAP BiPAP/CPAP O2 Flow Rate 4.0 4.0 18 18 18 09/12/18 02:20 03:00 04:00 04:00 Temp 98.4 98.4 Pulse 87 84 Resp 28 24 B/P (MAP) 175/91 (119) 199/90 (126) Pulse Ox 95 96 98 O2 Delivery BiPAP/CPAP BiPAP/CPAP Bi-pap BiPAP/CPAP 09/12/18 09/12/18 09/12/18 09/12/18 04:22 04:29 04:51 05:00 Pulse 78 84 Resp 38 26 B/P (MAP) 198/100 190/100 (130) Pulse Ox 100 100 94 O2 Delivery BiPAP/CPAP BiPAP/CPAP BiPAP/CPAP O2 Flow Rate 4.0 09/12/18 09/12/18 09/12/18 09/12/18 06:00 06:22 06:22 07:00 Pulse 82 83 84 Resp 23 25 25 B/P (MAP) 198/91 (126) 198/91 185/86 (119) Pulse Ox 95 95 95 O2 Delivery BiPAP/CPAP BiPAP/CPAP 18 18 18 09/12/18 07:26 07:48 08:00 09:00 Temp 98.6 98.6 Pulse 75 64 Resp 25 25 B/P (MAP) 180/86 (117) 160/79 (106) Pulse Ox 95 96 94 O2 Delivery Bi-pap BiPAP/CPAP BiPAP/CPAP BiPAP/CPAP 18 18 18 09/12/18 09:24 09:55 10:00 10:05 Pulse 62 Resp 20 24 25 B/P (MAP) 147/76 (99) Pulse Ox 94 94 94 95 O2 Delivery BiPAP/CPAP BiPAP/CPAP BiPAP/CPAP BiPAP/CPAP 09/12/18 09/12/18 11:00 11:14 Pulse 81 Resp 24 23 B/P (MAP) 155/76 (102) Pulse Ox 95 96 O2 Delivery BiPAP/CPAP BiPAP/CPAP Intake and Output 09/11/18 09/11/18 09/12/18 15:00 23:00 07:00 Intake Total 500 ml 1715 ml 1946 ml Output Total 770 ml 670 ml 835 ml Balance -270 ml 1045 ml 1111 ml SAURABH DOTSON III DO Sep 12, 2018 11:28
[2018-09-12] MEDS ORDERED: MAGNESIUM SULFATE 2GM 50 ML IV ONE (11:30)
--- NOTE | 2018-09-12 11:38 | CARD ---
MR#: [id number] Date of Study: 09/12/2018 Ordering Physician: ARSH NARAYANAN, Referring Physician: AYAH CORRAL Tech: Alyssia Coombs [facility] APPROVED REPORT EXAM: LIMITED Two-dimensional and M-mode echocardiogram. Other Information Quality : Poor Technically limited study due to body habitus and CABG. See Tech notes. INDICATION CAD 2D DIMENSIONS RVDd3.7 (2.9-3.5cm)Left Atrium(2D)5.2 (1.6-4.0cm) IVSd1.6 (0.7-1.1cm)Aortic Root(2D)4.0 (2.0-3.7cm) LVDd5.6 (3.9-5.9cm)PWd1.2 (0.7-1.1cm) LVDs3.9 (2.5-4.0cm)FS (%) 31.0 % SV89.5 mlLVEF(%)58.0 (>50%) LEFT VENTRICLE The left ventricle is normal size. There is mild concentric left ventricular hypertrophy. Grossly nor mal wall motion. Limited images. EF probably 50%. Cannot rule out septal motion abnormalities. RIGHT VENTRICLE The right ventricle is mildly dilated. GREAT VESSELS Not evaluated PERICARDIAL EFFUSION There is no evidence of significant pericardial effusion. Critical Notification Critical Value: No <Conclusion> Grossly normal wall motion. Limited images. EF probably 50%. Cannot rule out septal motion abnormalit ies. Very limited images. Signed by : Husam Layton, Electronically Approved : 09/12/2018 11:37:05
[2018-09-12] MEDS ORDERED: IV NORMAL SALINE 500ML BAG 500 ML IV PRN (13:15)
[2018-09-12] MEDS ORDERED: DEXMEDETOMIDINE 200 MCG in IV NORMAL SALINE 50ML 48 ML IV PRN (13:15)
[2018-09-12] MEDS ORDERED: ATROPINE 0.5 MG/5 ML DISP.SYRINGE. IV PRN (13:15)
[2018-09-12] MEDS: HALOPERIDOL LACTATE 5 MG/ML VIAL. IVP SCH ×2 (13:48→21:27)
[2018-09-12] MEDS: MORPHINE SULFATE 2 MG/ML VIAL. IV PRN ×4 (13:49→20:41)
[2018-09-12] MEDS: AMINO AC 3%/ELECTROLYTE/GLYCER 1,000 ML IV SCH (13:51)
[2018-09-12] MEDS: VANCOMYCIN PER PHARMACY MC PRN ×3 (15:48→23:17)
--- NOTE | 2018-09-12 16:03 | PDOC ---
CARDIO Progress Notes Date and Time Date of Service 09/12/2018 Time of Evaluation 1530 Subjective Subjective: Other (resting, slightly restless on bipap, at the bedside) Vitals Vitals Vital Signs Date Time Temp Pulse Resp B/P (MAP) Pulse Ox O2 Delivery O2 Flow Rate FiO2 09/12/18 15:00 76 24 139/90 (106) 95 BiPAP/CPAP 09/12/18 13:00 98.8 98.8 09/12/18 04:29 4.0 Weight Weight [ ] Input and Output Intake and Output Intake and Output 09/12/18 07:00 Intake Total 4161 ml Output Total 2275 ml Balance 1886 ml Intake Oral 0 ml IV Total 4161 ml Output Urine Total 2275 ml Laboratory Labs Laboratory Tests Test 09/11/18 17:00 09/11/18 17:37 09/12/18 00:13 09/12/18 06:01 Erythrocyte Sedimentation Rate 6 (0-15) Glucose (Fingerstick) 159 mg/dL (70-99) 129 mg/dL (70-99) 118 mg/dL (70-99) Test 09/12/18 06:05 09/12/18 12:57 White Blood Count 10.7 x10^3/uL (4.0-11.0) Red Blood Count 4.68 x10^6/uL (4.30-5.70) Hemoglobin 13.1 g/dL (13.0-17.5) Hematocrit 39.2 % (39.0-53.0) Mean Corpuscular Volume 84 fL (79-100) Mean Corpuscular Hemoglobin 28 pg (25-35) Mean Corpuscular Hemoglobin Concent 34 g/dL (31-37) Red Cell Distribution Width 14.2 % (11.5-14.5) Platelet Count 224 x10^3/uL (140-400) Neutrophils (%) (Auto) 72 % (31-73) Lymphocytes (%) (Auto) 16 % (24-48) Monocytes (%) (Auto) 11 % (0-9) Eosinophils (%) (Auto) 0 % (0-3) Basophils (%) (Auto) 1 % (0-3) Neutrophils # (Auto) 7.7 x10^3uL (1.8-7.7) Lymphocytes # (Auto) 1.7 x10^3/uL (1.0-4.8) Monocytes # (Auto) 1.1 x10^3/uL (0.0-1.1) Eosinophils # (Auto) 0.0 x10^3/uL (0.0-0.7) Basophils # (Auto) 0.1 x10^3/uL (0.0-0.2) Sodium Level 136 mmol/L (136-145) Potassium Level 4.6 mmol/L (3.5-5.1) Chloride Level 102 mmol/L (98-107) Carbon Dioxide Level 27 mmol/L (21-32) Anion Gap 7 (6-14) Blood Urea Nitrogen 19 mg/dL (8-26) Creatinine 0.9 mg/dL (0.7-1.3) Estimated GFR (Cockcroft-Gault) 83.7 Glucose Level 135 mg/dL (70-99) Calcium Level 8.6 mg/dL (8.5-10.1) Magnesium Level 1.5 mg/dL (1.8-2.4) Glucose (Fingerstick) 160 mg/dL (70-99) Microbiology Micro Microbiology 09/09/18 Blood Culture - Preliminary, Resulted NO GROWTH AFTER 2 DAYS Physical Exam HEENT: Neck Supple W Full Motion Chest: Symmetric LUNGS: Other (diminished bases, bipap in place) Heart: S1S2, RRR (SR with PACs) Abdomen: Soft N/T, Other (obese) Extremities: No Edema, No Calf Tenderness Neurology: other (drowsy) Assessment Assessment 1. Malignant HTN: remains NPO. BP much better that pt is not agitated and significantly restless. 2. Metabolic/toxic encephalopathy 3. Chronic alcoholism/binge drinking 4. Acute on chronic respiratory failure; multifactorial COPD/ETOH/SABRINA/ pneumonia. Pulmonary following 5. CAD; s/p [facility] 12/2015 [facility]. Unable to obtain full TTE due to restlessness. EF at 50% grossly nml WM. 6. Possible sepsis/bacteremia; G+ 2/4 7. WARREN; resolved 8. AAA with previous EVAR 9. Hyperlipidemia;: not on goal 10. Hx of PAFIB: SR with PACs 11. DM, II 12. Chronic back pain; opioid dependent. Possible overdose. 13. Hypomagnesemia Recommendations 1. PO metoprolol once pt is able to take PO. Also on home cardizem will hold for now. No HR trend then will resume PO meds once able to take PO. 2. Statin when PO is tolerated. ASA for stroke prevention. Was taken off coumadin2 yrs ago for unknown reason possibly in relation to ETOH abuse. 3. Replace Mg. 4. Noncompliant with CPAP, uses home O2 for his SABRINA. failed ETOH detox in the past, did nt go to AA. ETOH withdrawal protocol per PCP. Discussed with in regards to to detox but said that pt is unwilling so far. 5. IV Vasotec and labetalol PRN. 6. Follow up with [facility] as outpt. WILFREDO SOLOMON APRN Sep 12, 2018 16:03
--- NOTE | 2018-09-12 16:54 | PDOC ---
PROGRESS NOTES Assessment Assessment Toxic encephalopathy. Narcotics over dose. Hypertensive emergency, BP 244/127 mmHg. Hypertensive encephalopathy. Alcohol intoxication. Respiratory failure. Cardiac arrhythmia. CAD, s/p CABG. COPD. HTN,. HLD. DM. AKD. SABRINA on CPAP. Alcohol use/abuse. Obesity. RECOMMENDATIONS/PLAN: Continue life support in ICU. Alcohol detoxication treatment. Avoid Haldol as possible. Brain MRI w/o contrast when stable. EEG was not able to perform on him on 09/12/18 due to not stable. BP control. Continue Lipitor HS. Treat medical diseases. He has been on anticoagulant, Coumadin. Discussed with his daughter at bedside in ICU. HISTORY OF THE PRESENT ILLNESS: 67-y-old male patient with above medical diseases and chronic back pain obtained narcotics from CT recently. He was found MS changes to be brought to the ER of [facility]. His family found that about 14 narcotic pills were missing and patient did drink alcohol during the time when he had narcotics. Past Medical History Cardiovascular: CAD, HTN, Hyperlipidemia, Other Pulmonary: COPD CENTRAL NERVOUS SYSTEM: Other GI: GERD, Other Heme/Onc: No pertinent hx Hepatobiliary: No pertinent hx Psych: Anxiety, Other Musculoskeletal: Osteoarthritis, Other Rheumatologic: No pertinent hx Infectious disease: No pertinent hx Renal/: No pertinent hx Endocrine: Diabetes Past Surgical History CABG Family History Heart Disease Allergies Coded Allergies: Penicillins (Verified Allergy, Intermediate, PEELING HANDS; TOLERATES AMOXICILLIN, 07/14/16) celecoxib (Verified Allergy, Intermediate, "i dont know", 07/09/16) gabapentin (Verified Allergy, Intermediate, "i dont know", 07/09/16) pregabalin (Verified Allergy, Intermediate, "i dont know", 07/09/16) tadalafil (Verified Allergy, Intermediate, "i dont know", 07/09/16) terazosin (Verified Allergy, Intermediate, "i dont know", 07/09/16) varenicline (Verified Allergy, Intermediate, "i dont know" , 07/09/16) MEDICATIONS: Refer to [facility] SOCIAL HISTORY: Lives with his at home. Denies illicit drug use. He drinks alcohol heavily for many years, but stopped for 2 weeks then resumed drinking before [facility]. REVIEW OF SYSTEMS: Constitutional: Obesity. Head: No recent traumatic brain or head injury. Skin: No edema, or rash. Ear: No infection. Eyes: No vision loss or color blindness. Nose: No bleeding or purulent discharges. Hearing: Hearing decrease. Neck: No injury. Cardiac: CAD, s/p CABG, HTN, HLD. Pulmonary: COPD. GI: No GI ulcer, GI bleeding. Urinary/genital: UTI. Endocrinologic: Diabetes Mellitus, obesity. Skeletomuscular: Chronic back pain. Neurological: see HP. Psychiatric: Alcohol use/abuse. Otherwise, not -dhepx review of systems. PHYSICAL EXAMINATION: General appearance is in subacute distress. HEENT: Normocephalic and nontraumatic. Eyes, nose, ears, and throat are unremarkable. Neck is supple. No lymphadenopathy. No crepitus. Cardiovascular: S1, S2. PVCs noted. Pulmonary: Decreased to auscultation bilaterally. Abdomen: Bowel sounds are positive. Abdomen is soft, nontender, and nondistended. Extremities: No rash, lesions, or edema. No restriction of range of motion NEUROLOGICAL EXAMINATION: Lethargic. Not oriented to time, place and person. PERRL. EOMI not elicited due to not follow commands. CN: no focal findings. Muscle tone: within normal. Muscle strength: Moves all extremities to stimuli. DTR: 1- Plantar reflex: Neutral response bilaterally Gait: Unable to walk. Sensory exam: Withdrawal response noted to stimuli.. Not able to access cerebellar signs in this mentation. F-T-N test not performed due to not follow commands. Objective Objective Vital Signs Date Time Temp Pulse Resp B/P (MAP) Pulse Ox O2 Delivery O2 Flow Rate FiO2 09/12/18 16:04 96 BiPAP/CPAP 09/12/18 16:00 78 24 134/77 (96) 09/12/18 13:00 98.8 98.8 09/12/18 04:29 4.0 Intake and Output 09/12/18 07:00 Intake Total 4161 ml Output Total 2275 ml Balance 1886 ml Intake Oral 0 ml IV Total 4161 ml Output Urine Total 2275 ml Vitals Signs Vitals VS - Last 72 Hours, by Label Date Time Temp Pulse Resp B/P (MAP) Pulse Ox O2 Delivery O2 Flow Rate FiO2 09/12/18 16:04 96 BiPAP/CPAP 09/12/18 16:00 78 24 134/77 (96) 95 BiPAP/CPAP 18 16:00 Bi-pap 18 15:00 76 24 139/90 (106) 95 BiPAP/CPAP 18 14:12 25 95 BiPAP/CPAP 18 14:00 77 24 132/90 (104) 95 BiPAP/CPAP 18 13:49 21 98 BiPAP/CPAP 18 13:11 96 BiPAP/CPAP 09/12/18 13:00 98.8 85 24 155/76 (102) 93 BiPAP/CPAP 98.8 18 12:00 Bi-pap 09/12/18 12:00 66 24 171/83 (112) 95 BiPAP/CPAP 18 11:56 95 BiPAP/CPAP 18 11:14 23 96 BiPAP/CPAP 18 11:00 81 24 155/76 (102) 95 BiPAP/CPAP 18 10:05 95 BiPAP/CPAP 18 10:00 62 25 147/76 (99) 94 BiPAP/CPAP 18 09:55 24 94 BiPAP/CPAP 18 09:24 20 94 BiPAP/CPAP 18 09:00 98.6 64 25 160/79 (106) 94 BiPAP/CPAP 98.6 18 08:00 75 25 180/86 (117) 96 BiPAP/CPAP 18 07:48 95 BiPAP/CPAP 18 07:26 Bi-pap 09/12/18 07:00 84 25 185/86 (119) 95 BiPAP/CPAP 18 06:22 83 198/91 18 06:22 25 95 18/18 06:00 82 23 198/91 (126) 95 BiPAP/CPAP 18 05:00 84 26 190/100 (130) 94 BiPAP/CPAP 18 04:51 78 198/100 18 04:29 38 100 BiPAP/CPAP 4.0 18 04:22 100 BiPAP/CPAP 18 04:00 98.4 84 24 199/90 (126) 98 BiPAP/CPAP 98.4 12/18/18 04:00 Bi-pap 09/12/18 03:00 87 28 175/91 (119) 96 BiPAP/CPAP 09/12/18 02:20 95 BiPAP/CPAP 09/12/18 02:20 85 201/93 18 02:00 87 23 201/93 (129) 95 BiPAP/CPAP 09/12/18 01:47 4.0 18 01:17 24 95 BiPAP/CPAP 4.0 09/12/18 01:00 82 24 207/105 (139) 95 BiPAP/CPAP 09/12/18 00:52 84 207/105 09/12/18 00:00 98.1 81 36 197/103 (134) 95 BiPAP/CPAP 98.1 09/11/18 23:59 Bi-pap 09/11/18 23:30 98 BiPAP/CPAP 09/11/18 23:18 70 198/80 09/11/18 23:18 36 97 BiPAP/CPAP 4.0 09/11/18 23:00 95 30 198/80 (119) 97 BiPAP/CPAP 09/11/18 22:00 60 26 179/85 (116) 95 BiPAP/CPAP 18 21:55 96 BiPAP/CPAP 18 21:18 22 96 BiPAP/CPAP 18 21:17 83 190/97 09/11/18 21:00 62 23 190/97 (128) 96 BiPAP/CPAP 18 20:00 98.4 64 25 193/89 (123) 96 BiPAP/CPAP 98.4 09/11/18 20:00 Bi-pap 09/11/18 19:48 96 BiPAP/CPAP 18 19:22 26 96 BiPAP/CPAP 18 19:00 70 23 198/84 (122) 95 BiPAP/CPAP 18 18:34 81 200/92 18 18:00 81 28 200/92 (128) 95 BiPAP/CPAP 09/11/18 17:00 98.6 82 28 192/94 (126) 96 BiPAP/CPAP 98.6 09/11/18 16:00 Bi-pap 09/11/18 16:00 90 28 174/95 (121) 96 BiPAP/CPAP 09/11/18 15:59 92 174/95 09/11/18 15:35 97 BiPAP/CPAP 09/11/18 15:00 64 28 165/82 (109) 99 BiPAP/CPAP 09/11/18 14:00 98.0 78 28 155/78 (103) 96 BiPAP/CPAP 98.0 09/11/18 13:51 24 96 09/11/18 13:00 85 28 143/72 (95) 96 BiPAP/CPAP 09/11/18 12:00 84 24 200/94 (129) 96 BiPAP/CPAP 09/11/18 12:00 Bi-pap 09/11/18 11:33 97 BiPAP/CPAP 09/11/18 11:00 78 26 197/94 (128) 96 BiPAP/CPAP 09/11/18 10:48 77 201/89 09/11/18 10:00 77 28 201/89 (126) 94 BiPAP/CPAP 09/11/18 09:00 75 29 200/90 (126) 97 BiPAP/CPAP 09/11/18 08:49 96 BiPAP/CPAP 09/11/18 08:27 76 190/100 09/11/18 08:00 76 29 190/100 (130) 97 BiPAP/CPAP 09/11/18 07:26 Bi-pap 09/11/18 07:00 100.1 79 25 189/90 (123) 98 BiPAP/CPAP 100.1 Laboratory Laboratory Laboratory Tests Test 09/11/18 17:00 09/11/18 17:37 09/12/18 00:13 09/12/18 06:01 Erythrocyte Sedimentation Rate 6 (0-15) Glucose (Fingerstick) 159 mg/dL (70-99) 129 mg/dL (70-99) 118 mg/dL (70-99) Test 09/12/18 06:05 09/12/18 12:57 White Blood Count 10.7 x10^3/uL (4.0-11.0) Red Blood Count 4.68 x10^6/uL (4.30-5.70) Hemoglobin 13.1 g/dL (13.0-17.5) Hematocrit 39.2 % (39.0-53.0) Mean Corpuscular Volume 84 fL (79-100) Mean Corpuscular Hemoglobin 28 pg (25-35) Mean Corpuscular Hemoglobin Concent 34 g/dL (31-37) Red Cell Distribution Width 14.2 % (11.5-14.5) Platelet Count 224 x10^3/uL (140-400) Neutrophils (%) (Auto) 72 % (31-73) Lymphocytes (%) (Auto) 16 % (24-48) Monocytes (%) (Auto) 11 % (0-9) Eosinophils (%) (Auto) 0 % (0-3) Basophils (%) (Auto) 1 % (0-3) Neutrophils # (Auto) 7.7 x10^3uL (1.8-7.7) Lymphocytes # (Auto) 1.7 x10^3/uL (1.0-4.8) Monocytes # (Auto) 1.1 x10^3/uL (0.0-1.1) Eosinophils # (Auto) 0.0 x10^3/uL (0.0-0.7) Basophils # (Auto) 0.1 x10^3/uL (0.0-0.2) Sodium Level 136 mmol/L (136-145) Potassium Level 4.6 mmol/L (3.5-5.1) Chloride Level 102 mmol/L (98-107) Carbon Dioxide Level 27 mmol/L (21-32) Anion Gap 7 (6-14) Blood Urea Nitrogen 19 mg/dL (8-26) Creatinine 0.9 mg/dL (0.7-1.3) Estimated GFR (Cockcroft-Gault) 83.7 Glucose Level 135 mg/dL (70-99) Calcium Level 8.6 mg/dL (8.5-10.1) Magnesium Level 1.5 mg/dL (1.8-2.4) Glucose (Fingerstick) 160 mg/dL (70-99) Microbiology 09/09/18 Blood Culture - Preliminary, Resulted NO GROWTH AFTER 2 DAYS Medication Medications Current Medications Amino Acids/ Glycerin/ Electrolytes 1,000 ml @ 50 mls/hr Q20H IV Last administered on 09/12/18at 13:51; Start 09/12/18 at 11:30 Atropine Sulfate (ATROPINE 0.5mg SYRINGE) 0.5 mg PRN Q5MIN PRN IV SEE COMMENTS ; Start 09/12/18 at 13:15 Dexmedetomidine HCl 200 mcg/ Sodium Chloride 50 ml @ 0 mls/hr CONT PRN IV PER PROTOCOL; Start 09/12/18 at 13:15; Stop 09/12/18 at 14:04; Status DC Haloperidol Lactate (Haldol Inj) 10 mg Q8HRS IVP Last administered on at 13:48; Start 09/12/18 at 14:00 Insulin Human Lispro (HumaLOG) 0-7 UNITS Q6HRS SQ ; Start 09/11/18 at 18:00 Insulin Human Lispro (HumaLOG) 0-7 UNITS TIDWMEALS SQ ; Start 09/11/18 at 17:00 ; Stop 09/11/18 at 17:00; Status DC Magnesium Sulfate 50 ml @ 25 mls/hr 1X ONCE IV Last administered on at 12:56; Start 09/12/18 at 11:30; Stop 09/12/18 at 13:29; Status DC Metoprolol Tartrate (Lopressor Vial) 5 mg Q6HRS IVP ; Start 09/12/18 at 18:00 Metoprolol Tartrate (Lopressor) 25 mg BID PO ; Start 09/12/18 at 17:00; Stop 09/12/18 at 17:00; Status DC Morphine Sulfate (Morphine Sulfate) 2 mg PRN Q2HR PRN IV PAIN Last administered on 09/12/18at 13:49; Start 09/12/18 at 13:15 Sodium Chloride 500 ml @ 500 mls/hr 1X PRN PRN IV SEE COMMENTS; Start at 13:15 Vancomycin HCl (Vancomycin Trough Level) 1 each 1X ONCE MC ; Start 09/12/18 at 22:30; Stop 09/12/18 at 22:31 Vancomycin HCl 1.75 gm/Sodium Chloride 500 ml @ 250 mls/hr Q12H IV Last administered on 09/12/18at 10:47; Start 09/11/18 at 23:00 Comment Review of Relevant I have reviewed the following items barby (where applicable) has been applied. ADI MOON MD Sep 12, 2018 16:54
[2018-09-12] MEDS ORDERED: METOPROLOL TART IMMED RELEASE 25 MG TABLET. PO SCH (17:00)
[2018-09-12] MEDS: METOPROLOL TARTRATE 5 MG/5 ML VIAL. IVP SCH ×2 (17:03→23:55)
[2018-09-12] MEDS: FAMOTIDINE 20 MG/2 ML VIAL IVP SCH (20:47)
[2018-09-12] MEDS: PATCH REMOVAL. MC SCH (20:47)
[2018-09-12 22:50] LABS: VANC TR 8.9 mcg/mL (10.0-20.0)
[2018-09-13] VITALS (24 sets, daily range): BP systolic 122–196; BP diastolic 64–97
[2018-09-13] MEDS: DEXMEDETOMIDINE 200 MCG in IV NORMAL SALINE 50ML 48 ML IV PRN ×17 (00:07→22:31)
[2018-09-13] MEDS: MORPHINE SULFATE 2 MG/ML VIAL. IV PRN ×3 (00:07→21:04)
[2018-09-13] MEDS: CEFEPIME HCL IV Push 1 GM VIAL. IVP SCH ×3 (01:44→17:16)
[2018-09-13 05:44] LABS: BASO % 0 % (0-3); EOS % 0 % (0-3); HEMATOCRIT 37.5 % (39.0-53.0); HEMOGLOBIN 12.6 g/dL (13.0-17.5); LYMPH # 0.9 x10^3/uL (1.0-4.8); LYMPH % 9 % (24-48); MEAN CORPUSCULAR HEMOGLOBIN 28 pg (25-35); MEAN CORPUSCULAR HGB CONC 34 g/dL (31-37); MEAN CORPUSCULAR VOLUME 83 fL (79-100); MONO # 0.7 x10^3/uL (0.0-1.1); MONO % 7 % (0-9); NEUT # 8.3 x10^3uL (1.8-7.7); NEUT % 84 % (31-73); PLATELET COUNT 216 x10^3/uL (140-400); RED BLOOD COUNT 4.51 x10^6/uL (4.30-5.70)
[2018-09-13] MEDS: HALOPERIDOL LACTATE 5 MG/ML VIAL. IVP SCH ×3 (05:46→21:31)
[2018-09-13] MEDS: METOPROLOL TARTRATE 5 MG/5 ML VIAL. IVP SCH ×3 (05:48→17:17)
[2018-09-13] MEDS: INSULIN LISPRO 300 UNITS/3 ML INSULN.PEN. SQ SCH ×3 (05:49→17:18)
[2018-09-13 06:24] LABS: CALCIUM 8.9 mg/dL (8.5-10.1); CREATININE 0.8 mg/dL (0.7-1.3); GFR 95.8; MAGNESIUM 1.9 mg/dL (1.8-2.4); POTASSIUM 4.7 mmol/L (3.5-5.1)
--- NOTE | 2018-09-13 06:41 | PDOC ---
Infectious Disease Note Subjective Subjective On bipap and agitated at times ROS ROS unable to obtain Vital Sign Vital Signs Vital Signs Date Time Temp Pulse Resp B/P (MAP) Pulse Ox O2 Delivery O2 Flow Rate FiO2 09/13/18 06:00 64 23 156/70 (98) 99 BiPAP/CPAP 09/13/18 04:00 98.7 98.7 09/12/18 20:41 4.0 Physical Exam PHYSICAL EXAM GEN: appears comfortable currently - on Bipap HEENT: Pupils are equal and reactive. He has normal conjunctivae.but some suffusion NECK: Supple - he moved from side to side. No gross JVD. LUNGS: Decreased in the bases. HEART: S1, S2, mild tachycardia. ABDOMEN: Obese, soft with decreased bowel sounds. GENITOURINARY: Mary is in place. He has clearing urine. EXTREMITIES: Without clubbing, cyanosis with trace edema. MITTS SKIN: Warm to touch without generalized signs of rash. NEUROLOGIC: He is confused. RIJ - clean. Labs Lab Laboratory Tests Test 09/12/18 12:57 09/12/18 17:21 09/12/18 22:15 09/12/18 23:14 Glucose (Fingerstick) 160 mg/dL (70-99) 126 mg/dL (70-99) 161 mg/dL (70-99) Vancomycin Level Trough 8.9 mcg/mL (10.0-20.0) Vancomycin Last Dose Date 09/12/18 Vancomycin Last Dose Time 1100 Test 09/13/18 05:30 09/13/18 05:37 White Blood Count 10.0 x10^3/uL (4.0-11.0) Red Blood Count 4.51 x10^6/uL (4.30-5.70) Hemoglobin 12.6 g/dL (13.0-17.5) Hematocrit 37.5 % (39.0-53.0) Mean Corpuscular Volume 83 fL (79-100) Mean Corpuscular Hemoglobin 28 pg (25-35) Mean Corpuscular Hemoglobin Concent 34 g/dL (31-37) Red Cell Distribution Width 14.0 % (11.5-14.5) Platelet Count 216 x10^3/uL (140-400) Neutrophils (%) (Auto) 84 % (31-73) Lymphocytes (%) (Auto) 9 % (24-48) Monocytes (%) (Auto) 7 % (0-9) Eosinophils (%) (Auto) 0 % (0-3) Basophils (%) (Auto) 0 % (0-3) Neutrophils # (Auto) 8.3 x10^3uL (1.8-7.7) Lymphocytes # (Auto) 0.9 x10^3/uL (1.0-4.8) Monocytes # (Auto) 0.7 x10^3/uL (0.0-1.1) Eosinophils # (Auto) 0.0 x10^3/uL (0.0-0.7) Basophils # (Auto) 0.0 x10^3/uL (0.0-0.2) Sodium Level 134 mmol/L (136-145) Potassium Level 4.7 mmol/L (3.5-5.1) Chloride Level 99 mmol/L (98-107) Carbon Dioxide Level 26 mmol/L (21-32) Anion Gap 9 (6-14) Blood Urea Nitrogen 20 mg/dL (8-26) Creatinine 0.8 mg/dL (0.7-1.3) Estimated GFR (Cockcroft-Gault) 95.8 Glucose Level 162 mg/dL (70-99) Calcium Level 8.9 mg/dL (8.5-10.1) Magnesium Level 1.9 mg/dL (1.8-2.4) Glucose (Fingerstick) 156 mg/dL (70-99) Micro Microbiology 09/09/18 Blood Culture - Preliminary, Resulted NO GROWTH AFTER 1 DAY Objective Assessment Fever- better - procalcitonin and Sed rate normal Bacteremia ? sepsis / POA - GPC - ID pending - ECHO 09/12 very limited Encephalopathy - on Ativan - BP improving h/o ETOH and hydrocodone PCN allergy - has had amox H/o SVT Acute Resp failure - ? CAP vs AECOPD - on Bipap - on steroids HTN DO - hydrocodone Hematuria H/o Compression fractures h/o ETOH abuse Plan Plan of Care Cont Vanc Doxy and cefepime for now F/u labs and cults may need MRI of Back Critically ill YAAKOV DYER MD Sep 13, 2018 06:41
[2018-09-13] MEDS: PANTOPRAZOLE IV PUSH 40 MG VIAL. IVP SCH (07:44)
[2018-09-13] MEDS: MULTIVIT INFUSN,ADULT 4,VIT K 10 ML, THIAMINE INJ 100 MG, FOLIC ACID INJ 1 MG in IV NOR... IV SCH (08:01)
[2018-09-13] MEDS: NORMAL SALINE IVP SCH (08:02)
[2018-09-13] MEDS: LEVOTHYROXINE SODIUM IVP SCH (08:02)
[2018-09-13] MEDS: IPRATRPIUM/ALBUTEROL 0.5/2.5MG 3 ML NEBU. NEB SCH ×4 (08:03→19:50)
[2018-09-13] MEDS: VANCOMYCIN PER PHARMACY MC PRN (08:44)
[2018-09-13] MEDS: LIDOCAINE (700MG/PATCH) PATCH. TD SCH (09:13)
[2018-09-13] MEDS: methylPREDNISolone SOD SUCC PF 40 MG/ML VIAL. IV SCH ×2 (09:13→20:44)
[2018-09-13] MEDS: AMINO AC 3%/ELECTROLYTE/GLYCER 1,000 ML IV SCH (09:13)
[2018-09-13] MEDS: DOXYCYCLINE HYCLATE 100 MG in IV DEXTROSE 5% 100ML 100 ML IV SCH ×2 (09:14→20:46)
--- NOTE | 2018-09-13 10:33 | PDOC ---
PULMONARY PROGRESS NOTES Subjective OFF BIPAP FULLING ON WIRES AND TUBES AT BEDSIDE Vitals Vital Signs Date Time Temp Pulse Resp B/P (MAP) Pulse Ox O2 Delivery O2 Flow Rate FiO2 09/13/18 08:00 68 20 147/64 (91) 99 BiPAP/CPAP 09/13/18 07:00 97.7 97.7 09/12/18 20:41 4.0 General: Confused Lungs: Crackles Cardiovascular: S1, S2 Abdomen: Soft, Other (OBESE) Extremities: Other (EDEMA) Skin: Warm Labs Laboratory Tests Test 09/11/18 11:23 09/11/18 17:00 09/11/18 17:37 09/12/18 00:13 Glucose (Fingerstick) 153 mg/dL (70-99) 159 mg/dL (70-99) 129 mg/dL (70-99) Erythrocyte Sedimentation Rate 6 (0-15) Test 09/12/18 06:01 09/12/18 06:05 09/12/18 12:57 09/12/18 17:21 Glucose (Fingerstick) 118 mg/dL (70-99) 160 mg/dL (70-99) 126 mg/dL (70-99) White Blood Count 10.7 x10^3/uL (4.0-11.0) Red Blood Count 4.68 x10^6/uL (4.30-5.70) Hemoglobin 13.1 g/dL (13.0-17.5) Hematocrit 39.2 % (39.0-53.0) Mean Corpuscular Volume 84 fL (79-100) Mean Corpuscular Hemoglobin 28 pg (25-35) Mean Corpuscular Hemoglobin Concent 34 g/dL (31-37) Red Cell Distribution Width 14.2 % (11.5-14.5) Platelet Count 224 x10^3/uL (140-400) Neutrophils (%) (Auto) 72 % (31-73) Lymphocytes (%) (Auto) 16 % (24-48) Monocytes (%) (Auto) 11 % (0-9) Eosinophils (%) (Auto) 0 % (0-3) Basophils (%) (Auto) 1 % (0-3) Neutrophils # (Auto) 7.7 x10^3uL (1.8-7.7) Lymphocytes # (Auto) 1.7 x10^3/uL (1.0-4.8) Monocytes # (Auto) 1.1 x10^3/uL (0.0-1.1) Eosinophils # (Auto) 0.0 x10^3/uL (0.0-0.7) Basophils # (Auto) 0.1 x10^3/uL (0.0-0.2) Sodium Level 136 mmol/L (136-145) Potassium Level 4.6 mmol/L (3.5-5.1) Chloride Level 102 mmol/L (98-107) Carbon Dioxide Level 27 mmol/L (21-32) Anion Gap 7 (6-14) Blood Urea Nitrogen 19 mg/dL (8-26) Creatinine 0.9 mg/dL (0.7-1.3) Estimated GFR (Cockcroft-Gault) 83.7 Glucose Level 135 mg/dL (70-99) Calcium Level 8.6 mg/dL (8.5-10.1) Magnesium Level 1.5 mg/dL (1.8-2.4) Test 09/12/18 22:15 09/12/18 23:14 09/13/18 05:30 09/13/18 05:37 Vancomycin Level Trough 8.9 mcg/mL (10.0-20.0) Vancomycin Last Dose Date 09/12/18 Vancomycin Last Dose Time 1100 Glucose (Fingerstick) 161 mg/dL (70-99) 156 mg/dL (70-99) White Blood Count 10.0 x10^3/uL (4.0-11.0) Red Blood Count 4.51 x10^6/uL (4.30-5.70) Hemoglobin 12.6 g/dL (13.0-17.5) Hematocrit 37.5 % (39.0-53.0) Mean Corpuscular Volume 83 fL (79-100) Mean Corpuscular Hemoglobin 28 pg (25-35) Mean Corpuscular Hemoglobin Concent 34 g/dL (31-37) Red Cell Distribution Width 14.0 % (11.5-14.5) Platelet Count 216 x10^3/uL (140-400) Neutrophils (%) (Auto) 84 % (31-73) Lymphocytes (%) (Auto) 9 % (24-48) Monocytes (%) (Auto) 7 % (0-9) Eosinophils (%) (Auto) 0 % (0-3) Basophils (%) (Auto) 0 % (0-3) Neutrophils # (Auto) 8.3 x10^3uL (1.8-7.7) Lymphocytes # (Auto) 0.9 x10^3/uL (1.0-4.8) Monocytes # (Auto) 0.7 x10^3/uL (0.0-1.1) Eosinophils # (Auto) 0.0 x10^3/uL (0.0-0.7) Basophils # (Auto) 0.0 x10^3/uL (0.0-0.2) Sodium Level 134 mmol/L (136-145) Potassium Level 4.7 mmol/L (3.5-5.1) Chloride Level 99 mmol/L (98-107) Carbon Dioxide Level 26 mmol/L (21-32) Anion Gap 9 (6-14) Blood Urea Nitrogen 20 mg/dL (8-26) Creatinine 0.8 mg/dL (0.7-1.3) Estimated GFR (Cockcroft-Gault) 95.8 Glucose Level 162 mg/dL (70-99) Calcium Level 8.9 mg/dL (8.5-10.1) Magnesium Level 1.9 mg/dL (1.8-2.4) Laboratory Tests Test 09/12/18 12:57 09/12/18 17:21 09/12/18 22:15 09/12/18 23:14 Glucose (Fingerstick) 160 mg/dL (70-99) 126 mg/dL (70-99) 161 mg/dL (70-99) Vancomycin Level Trough 8.9 mcg/mL (10.0-20.0) Vancomycin Last Dose Date 09/12/18 Vancomycin Last Dose Time 1100 Test 09/13/18 05:30 09/13/18 05:37 White Blood Count 10.0 x10^3/uL (4.0-11.0) Red Blood Count 4.51 x10^6/uL (4.30-5.70) Hemoglobin 12.6 g/dL (13.0-17.5) Hematocrit 37.5 % (39.0-53.0) Mean Corpuscular Volume 83 fL (79-100) Mean Corpuscular Hemoglobin 28 pg (25-35) Mean Corpuscular Hemoglobin Concent 34 g/dL (31-37) Red Cell Distribution Width 14.0 % (11.5-14.5) Platelet Count 216 x10^3/uL (140-400) Neutrophils (%) (Auto) 84 % (31-73) Lymphocytes (%) (Auto) 9 % (24-48) Monocytes (%) (Auto) 7 % (0-9) Eosinophils (%) (Auto) 0 % (0-3) Basophils (%) (Auto) 0 % (0-3) Neutrophils # (Auto) 8.3 x10^3uL (1.8-7.7) Lymphocytes # (Auto) 0.9 x10^3/uL (1.0-4.8) Monocytes # (Auto) 0.7 x10^3/uL (0.0-1.1) Eosinophils # (Auto) 0.0 x10^3/uL (0.0-0.7) Basophils # (Auto) 0.0 x10^3/uL (0.0-0.2) Sodium Level 134 mmol/L (136-145) Potassium Level 4.7 mmol/L (3.5-5.1) Chloride Level 99 mmol/L (98-107) Carbon Dioxide Level 26 mmol/L (21-32) Anion Gap 9 (6-14) Blood Urea Nitrogen 20 mg/dL (8-26) Creatinine 0.8 mg/dL (0.7-1.3) Estimated GFR (Cockcroft-Gault) 95.8 Glucose Level 162 mg/dL (70-99) Calcium Level 8.9 mg/dL (8.5-10.1) Magnesium Level 1.9 mg/dL (1.8-2.4) Glucose (Fingerstick) 156 mg/dL (70-99) Medications Active Scripts Medications Dose Route/Sig Max Daily Dose Days Date Category Dose Instructions Ventolin Hfa Inhaler (Albuterol Sulfate) 18 Gm Hfa.aer.ad 2 Puff INH Q4HRS 09/11/18 Reported Mirtazapine 45 Mg Tablet 1 Tab PO QHS 09/11/18 Reported Glipizide 5 Mg Tablet 1 Tab PO BID 09/11/18 Reported Metformin Hcl 1,000 Mg Tablet 1,000 Mg PO BIDWMEALS 12/17/18 Reported Lantus (Insulin Glargine,Hum.rec.anlog) 100 Unit/1 Ml Vial 50 Unit SQ HS 09/11/18 Reported NITROGLYCERIN SubLingual (Nitroglycerin) 0.4 Mg Tab.subl 0.4 Mg SL PRN Q5MIN PRN 09/11/18 Reported Fluoxetine Hcl 20 Mg Capsule 3 Cap PO DAILY 09/11/18 Reported Novolin R (Insulin Regular, Human) 100 Unit/1 Ml Vial 100 Unit IJ QIDACHS 09/11/18 Reported Vitamin D3 (Cholecalciferol (Vitamin D3)) 1,000 Unit Tablet 1 Tab PO TID 09/11/18 Reported Vitamin B-12 (Cyanocobalamin (Vitamin B-12)) 1,000 Mcg Tablet 1 Tab PO DAILY 09/11/18 Reported Gemfibrozil 600 Mg Tablet 0.5 Tab PO BID 09/11/18 Reported Pepcid (Famotidine) 20 Mg Tablet 10 Mg PO BID 09/11/18 Reported Cardizem Cd (Diltiazem Hcl) 240 Mg Cap.er.24h 1 Cap PO DAILY 09/11/18 Reported Robaxin (Methocarbamol) 500 Mg Tablet 1 Tab PO BID PRN 09/11/18 Reported Niaspan (Niacin) 500 Mg Tab.er.24h 1 Tab PO QHS 09/11/18 Reported Gabapentin 600 Mg Tablet 300 Mg PO QID 09/11/18 Reported Pantoprazole Sodium 40 Mg Tablet.dr 40 Mg PO DAILYAC 07/16/16 Rx Lidoderm (Lidocaine) 700 Mg Adh..patch 1 Patch TD DAILY 07/16/16 Rx 12hours on, 12 hours off Lisinopril 2.5 Mg Tablet 2.5 Mg PO DAILY 07/16/16 Rx Feosol (Ferrous Sulfate) 325 Mg Tablet 325 Mg PO DAILYAC 07/16/16 Rx Children's Aspirin (Aspirin) 81 Mg Tab.chew 81 Mg PO DAILYWBKFT 07/16/16 Rx Symbicort 80-4.5 Mcg Inhaler (Budesonide/Formoterol Fumarate) 10.2 Gm Hfa.aer.ad 2 Puff IH BID 07/09/16 Reported Finasteride 5 Mg Tablet 1 Tab PO DAILY 07/09/16 Reported Levothyroxine Sodium 50 Mcg Tablet 1 Tab PO DAILY 07/09/16 Reported Tamsulosin Hcl 0.4 Mg Cap.er.24h 0.4 Mg PO BID 07/09/16 Reported Spiriva (Tiotropium Perkins) 18 Mcg Cap.w.dev 2 Inh IH DAILY 07/09/16 Reported Hydrocodone-Apap 7.5-325 (Hydrocodone Bit/Acetaminophen) 1 Each Tablet 1 Tab PO Q4HRS PRN 07/09/16 Reported Metoprolol Tartrate 25 Mg Tablet 1 Tab PO BID 07/09/16 Reported Comments IMPRESSION: Mild patchy opacities in the right lung base may be secondary to subsegmental atelectasis or pneumonia. Findings of COPD. Impression . IMPRESSION: 1. Acute hypoxemic respiratory failure, multifactorial in etiolog 2. Abnormal chest x-ray/PNEUMONIA 3. Acute exacerbation of chronic obstructive pulmonary disease. 4. Acute bronchitis versus pneumonia. 5. METABOLIC/TOXIC Encephalopathy POA 6. Acute kidney injury. 7. Obstructive sleep apnea-hypopnea syndrome. 8. CAD S/P CABG 9. Hypertension. 10. BACTEREMIA/SEPSIS PER ID CXR 09/11 Impression: 1. Mild infiltrate or opacity in both lungs, appears slightly worse, but that may just be due to difference in technique. No new focal consolidation. 2. Right IJ line tip overlies the superior cavoatrial region. Plan . UNABLE TO DECREASE PRECEDEX ON HALDOL ANTIBX PER ID D/W FAMILY WILL SUPPORT CONTINUE BIPAP DIFFICULT SITUATION WITH ENCEPHALOPATHY NEED TO FIND A BALANCE WITH NARCOTIS/SEDATION STEROIDS D/W RT CCT 30 MIN ARLYN FENTON MD Sep 13, 2018 10:33
[2018-09-13] MEDS: HALOPERIDOL LACTATE 5 MG/ML VIAL. IVP PRN (11:46)
[2018-09-13] MEDS: VANCOMYCIN 2 GM in IV NORMAL SALINE 500ML BAG 500 ML IV SCH (12:03)
--- NOTE | 2018-09-13 13:19 | PDOC ---
PROGRESS NOTES Chief Complaint Chief Complaint Alcohol withdrawal Rhabdomyolysis- acute kidney injury secondary to above Hypercapnic/hypoxic respiratory failure in a super morbidly obese on NIPPV SABRINA, need CPAP at night Possible pickwickian syndrome CAP/atelectasis on chest x-ray History of CAD, CABG COPD flare History of sepsis/UTI History of IBS, alternating bowel movements History of alcoholism AK I on CK D/ VMN Diabetes Acute on chronic back pain-took 15 Wynona in the last 12 hours because of back pain Accel hypertension History of Present Illness History of Present Illness Patient seen and examined. Spoke to nursing at bedside. Spoke with patient's at bedside Vitals Vitals Vital Signs Date Time Temp Pulse Resp B/P (MAP) Pulse Ox O2 Delivery O2 Flow Rate FiO2 09/13/18 12:04 105 200/112 09/13/18 08:00 20 99 BiPAP/CPAP 09/13/18 07:00 97.7 97.7 09/12/18 20:41 4.0 Physical Exam Physical Exam GEN: appears comfortable currently - on Bipap HEENT: Pupils are equal and reactive. He has normal conjunctivae.but some suffusion NECK: Supple - he moved from side to side. No gross JVD. LUNGS: Decreased in the bases. HEART: S1, S2, mild tachycardia. ABDOMEN: Obese, soft with decreased bowel sounds. GENITOURINARY: Mary is in place. He has clearing urine. EXTREMITIES: Without clubbing, cyanosis with trace edema. MITTS SKIN: Warm to touch without generalized signs of rash. NEUROLOGIC: He is confused. RIJ - clean. General: mild distress, Other (confused) Heart: Regular rate, Normal S1, Normal S2, Other (distant heart tones. ) Lungs: Crackles Abdomen: Soft, Other (obese) Extremities: No edema, Normal pulses Skin: No significant lesion Labs LABS Laboratory Tests Test 09/12/18 17:21 09/12/18 22:15 09/12/18 23:14 09/13/18 05:30 Glucose (Fingerstick) 126 mg/dL (70-99) 161 mg/dL (70-99) Vancomycin Level Trough 8.9 mcg/mL (10.0-20.0) Vancomycin Last Dose Date 09/12/18 Vancomycin Last Dose Time 1100 White Blood Count 10.0 x10^3/uL (4.0-11.0) Red Blood Count 4.51 x10^6/uL (4.30-5.70) Hemoglobin 12.6 g/dL (13.0-17.5) Hematocrit 37.5 % (39.0-53.0) Mean Corpuscular Volume 83 fL (79-100) Mean Corpuscular Hemoglobin 28 pg (25-35) Mean Corpuscular Hemoglobin Concent 34 g/dL (31-37) Red Cell Distribution Width 14.0 % (11.5-14.5) Platelet Count 216 x10^3/uL (140-400) Neutrophils (%) (Auto) 84 % (31-73) Lymphocytes (%) (Auto) 9 % (24-48) Monocytes (%) (Auto) 7 % (0-9) Eosinophils (%) (Auto) 0 % (0-3) Basophils (%) (Auto) 0 % (0-3) Neutrophils # (Auto) 8.3 x10^3uL (1.8-7.7) Lymphocytes # (Auto) 0.9 x10^3/uL (1.0-4.8) Monocytes # (Auto) 0.7 x10^3/uL (0.0-1.1) Eosinophils # (Auto) 0.0 x10^3/uL (0.0-0.7) Basophils # (Auto) 0.0 x10^3/uL (0.0-0.2) Sodium Level 134 mmol/L (136-145) Potassium Level 4.7 mmol/L (3.5-5.1) Chloride Level 99 mmol/L (98-107) Carbon Dioxide Level 26 mmol/L (21-32) Anion Gap 9 (6-14) Blood Urea Nitrogen 20 mg/dL (8-26) Creatinine 0.8 mg/dL (0.7-1.3) Estimated GFR (Cockcroft-Gault) 95.8 Glucose Level 162 mg/dL (70-99) Calcium Level 8.9 mg/dL (8.5-10.1) Magnesium Level 1.9 mg/dL (1.8-2.4) Test 09/13/18 05:37 Glucose (Fingerstick) 156 mg/dL (70-99) Review of Systems Review of Systems not able to obtain Assessment and Plan Assessmemt and Plan Alcohol withdrawal Rhabdomyolysis- acute kidney injury secondary to above Hypercapnic/hypoxic respiratory failure in a super morbidly obese on NIPPV SABRINA, need CPAP at night Possible pickwickian syndrome CAP/atelectasis on chest x-ray History of CAD, CABG COPD flare History of sepsis/UTI History of IBS, alternating bowel movements History of alcoholism AK I on CK D/ VMN Diabetes Acute on chronic back pain-took 15 Wynona in the last 12 hours because of back pain Accel hypertension Plan Continue ICU monitoring Sedation D/C'd today Continue BiPap and Abx per pulm and ID respectively CIWA protocol for alcohol withdrawal Supportive Care Comment Review of Relevant I have reviewed the following items barby (where applicable) has been applied. Labs Laboratory Tests Test 09/11/18 17:00 09/11/18 17:37 09/12/18 00:13 09/12/18 06:01 Erythrocyte Sedimentation Rate 6 (0-15) Glucose (Fingerstick) 159 mg/dL (70-99) 129 mg/dL (70-99) 118 mg/dL (70-99) Test 09/12/18 06:05 09/12/18 12:57 09/12/18 17:21 09/12/18 22:15 White Blood Count 10.7 x10^3/uL (4.0-11.0) Red Blood Count 4.68 x10^6/uL (4.30-5.70) Hemoglobin 13.1 g/dL (13.0-17.5) Hematocrit 39.2 % (39.0-53.0) Mean Corpuscular Volume 84 fL (79-100) Mean Corpuscular Hemoglobin 28 pg (25-35) Mean Corpuscular Hemoglobin Concent 34 g/dL (31-37) Red Cell Distribution Width 14.2 % (11.5-14.5) Platelet Count 224 x10^3/uL (140-400) Neutrophils (%) (Auto) 72 % (31-73) Lymphocytes (%) (Auto) 16 % (24-48) Monocytes (%) (Auto) 11 % (0-9) Eosinophils (%) (Auto) 0 % (0-3) Basophils (%) (Auto) 1 % (0-3) Neutrophils # (Auto) 7.7 x10^3uL (1.8-7.7) Lymphocytes # (Auto) 1.7 x10^3/uL (1.0-4.8) Monocytes # (Auto) 1.1 x10^3/uL (0.0-1.1) Eosinophils # (Auto) 0.0 x10^3/uL (0.0-0.7) Basophils # (Auto) 0.1 x10^3/uL (0.0-0.2) Sodium Level 136 mmol/L (136-145) Potassium Level 4.6 mmol/L (3.5-5.1) Chloride Level 102 mmol/L (98-107) Carbon Dioxide Level 27 mmol/L (21-32) Anion Gap 7 (6-14) Blood Urea Nitrogen 19 mg/dL (8-26) Creatinine 0.9 mg/dL (0.7-1.3) Estimated GFR (Cockcroft-Gault) 83.7 Glucose Level 135 mg/dL (70-99) Calcium Level 8.6 mg/dL (8.5-10.1) Magnesium Level 1.5 mg/dL (1.8-2.4) Glucose (Fingerstick) 160 mg/dL (70-99) 126 mg/dL (70-99) Vancomycin Level Trough 8.9 mcg/mL (10.0-20.0) Vancomycin Last Dose Date 09/12/18 Vancomycin Last Dose Time 1100 Test 09/12/18 23:14 09/13/18 05:30 09/13/18 05:37 Glucose (Fingerstick) 161 mg/dL (70-99) 156 mg/dL (70-99) White Blood Count 10.0 x10^3/uL (4.0-11.0) Red Blood Count 4.51 x10^6/uL (4.30-5.70) Hemoglobin 12.6 g/dL (13.0-17.5) Hematocrit 37.5 % (39.0-53.0) Mean Corpuscular Volume 83 fL (79-100) Mean Corpuscular Hemoglobin 28 pg (25-35) Mean Corpuscular Hemoglobin Concent 34 g/dL (31-37) Red Cell Distribution Width 14.0 % (11.5-14.5) Platelet Count 216 x10^3/uL (140-400) Neutrophils (%) (Auto) 84 % (31-73) Lymphocytes (%) (Auto) 9 % (24-48) Monocytes (%) (Auto) 7 % (0-9) Eosinophils (%) (Auto) 0 % (0-3) Basophils (%) (Auto) 0 % (0-3) Neutrophils # (Auto) 8.3 x10^3uL (1.8-7.7) Lymphocytes # (Auto) 0.9 x10^3/uL (1.0-4.8) Monocytes # (Auto) 0.7 x10^3/uL (0.0-1.1) Eosinophils # (Auto) 0.0 x10^3/uL (0.0-0.7) Basophils # (Auto) 0.0 x10^3/uL (0.0-0.2) Sodium Level 134 mmol/L (136-145) Potassium Level 4.7 mmol/L (3.5-5.1) Chloride Level 99 mmol/L (98-107) Carbon Dioxide Level 26 mmol/L (21-32) Anion Gap 9 (6-14) Blood Urea Nitrogen 20 mg/dL (8-26) Creatinine 0.8 mg/dL (0.7-1.3) Estimated GFR (Cockcroft-Gault) 95.8 Glucose Level 162 mg/dL (70-99) Calcium Level 8.9 mg/dL (8.5-10.1) Magnesium Level 1.9 mg/dL (1.8-2.4) Laboratory Tests Test 09/12/18 17:21 09/12/18 22:15 09/12/18 23:14 09/13/18 05:30 Glucose (Fingerstick) 126 mg/dL (70-99) 161 mg/dL (70-99) Vancomycin Level Trough 8.9 mcg/mL (10.0-20.0) Vancomycin Last Dose Date 09/12/18 Vancomycin Last Dose Time 1100 White Blood Count 10.0 x10^3/uL (4.0-11.0) Red Blood Count 4.51 x10^6/uL (4.30-5.70) Hemoglobin 12.6 g/dL (13.0-17.5) Hematocrit 37.5 % (39.0-53.0) Mean Corpuscular Volume 83 fL (79-100) Mean Corpuscular Hemoglobin 28 pg (25-35) Mean Corpuscular Hemoglobin Concent 34 g/dL (31-37) Red Cell Distribution Width 14.0 % (11.5-14.5) Platelet Count 216 x10^3/uL (140-400) Neutrophils (%) (Auto) 84 % (31-73) Lymphocytes (%) (Auto) 9 % (24-48) Monocytes (%) (Auto) 7 % (0-9) Eosinophils (%) (Auto) 0 % (0-3) Basophils (%) (Auto) 0 % (0-3) Neutrophils # (Auto) 8.3 x10^3uL (1.8-7.7) Lymphocytes # (Auto) 0.9 x10^3/uL (1.0-4.8) Monocytes # (Auto) 0.7 x10^3/uL (0.0-1.1) Eosinophils # (Auto) 0.0 x10^3/uL (0.0-0.7) Basophils # (Auto) 0.0 x10^3/uL (0.0-0.2) Sodium Level 134 mmol/L (136-145) Potassium Level 4.7 mmol/L (3.5-5.1) Chloride Level 99 mmol/L (98-107) Carbon Dioxide Level 26 mmol/L (21-32) Anion Gap 9 (6-14) Blood Urea Nitrogen 20 mg/dL (8-26) Creatinine 0.8 mg/dL (0.7-1.3) Estimated GFR (Cockcroft-Gault) 95.8 Glucose Level 162 mg/dL (70-99) Calcium Level 8.9 mg/dL (8.5-10.1) Magnesium Level 1.9 mg/dL (1.8-2.4) Test 09/13/18 05:37 Glucose (Fingerstick) 156 mg/dL (70-99) Microbiology 09/09/18 Blood Culture - Preliminary, Resulted NO GROWTH AFTER 3 DAYS Medications Current Medications Thiamine Mononitrate (Vitamin B-1) 100 mg 1X STAT PO Last administered on at 14:50; Start 09/09/18 at 14:38; Stop 09/09/18 at 14:41; Status DC Folic Acid (Folic Acid) 1 mg 1X STAT PO Last administered on 09/09/18at 14:50 ; Start 09/09/18 at 14:38; Stop 09/09/18 at 14:41; Status DC Sodium Chloride 1,000 ml @ 1,000 mls/hr 1X ONCE IV Last administered on 09/09at 14:50; Start 09/09/18 at 15:00; Stop 09/09/18 at 15:59; Status DC Labetalol HCl (Normodyne Iv Push) 20 mg 1X ONCE IVP Last administered on 09/09at 16:53; Start 09/09/18 at 17:00; Stop 09/09/18 at 17:01; Status DC Chlordiazepoxide (Librium) 25 mg PRN Q6HRS PRN PO ANXIETY / AGITATION Last administered on 09/09/18at 22:35; Start 09/09/18 at 17:00; Stop 09/10/18 at 10 :35; Status DC Acetaminophen (Tylenol) 500 mg PRN Q6HRS PRN PO MILD PAIN / TEMP; Start at 17:00 Morphine Sulfate (Morphine Sulfate) 2 mg PRN Q2HR PRN IV MODERATE TO SEVERE PAIN Last administered on 09/12/18at 11:14; Start 09/09/18 at 17:00; Stop at 11:45; Status DC Sodium Chloride 1,000 ml @ 100 mls/hr Q10H IV Last administered on 09/09/18at 19:30; Start 09/09/18 at 18:00; Stop 09/10/18 at 10:35; Status DC Multivitamins (Thera M Plus) 1 tab DAILY PO ; Start 09/10/18 at 09:00; Stop at 13:13; Status DC Thiamine Mononitrate (Vitamin B-1) 100 mg DAILY PO ; Start 09/10/18 at 09:00; Stop 09/11/18 at 13:13; Status DC Folic Acid (Folic Acid) 1 mg DAILY PO ; Start 09/10/18 at 09:00; Stop at 13:13; Status DC Labetalol HCl (Normodyne Iv Push) 20 mg PRN Q2HR PRN IVP HYPERTENSION, 2ND CHOICE Last administered on 09/12/18at 19:43; Start 09/09/18 at 17:00 Nicotine (Nicoderm Cq 21mg) 1 patch PRN DAILY PRN TD SMOKING CESSATION; Start 09/09/18 at 17:15; Stop 09/11/18 at 13:13; Status DC Oxycodone/ Acetaminophen (Percocet 5/325) 1 tab PRN Q4HRS PRN PO SEVERE PAIN; Start 09/09/18 at 17:15 Diphenhydramine HCl (Benadryl) 25 mg PRN QHS PRN PO INSOMNIA; Start 09/09/18 at 17:15 Aspirin (Children'S Aspirin) 81 mg DAILYWBKFT PO ; Start 09/10/18 at 08:00; Stop 09/12/18 at 09:56; Status DC Atorvastatin Calcium (Lipitor) 40 mg QHS PO Last administered on 09/09/18at 21: 11; Start 09/09/18 at 21:00; Stop 09/12/18 at 09:56; Status DC Atorvastatin Calcium (Lipitor) 40 mg QHS PO ; Start 09/09/18 at 21:00; Status UNV Duloxetine HCl (Cymbalta) 30 mg BID PO Last administered on 09/09/18at 21:12; Start 09/09/18 at 21:00; Stop 09/11/18 at 13:13; Status DC Ferrous Sulfate (Feosol) 325 mg DAILYAC PO ; Start 09/10/18 at 07:30; Stop at 13:13; Status DC Finasteride (Proscar) 5 mg DAILY PO ; Start 09/10/18 at 09:00; Stop 09/12/18 at 09:56; Status DC Lorazepam (Ativan) 0.5 mg PRN DAILY PRN PO ANXIETY / AGITATION; Start at 17:15; Stop 09/10/18 at 10:35; Status DC Metoprolol Tartrate (Lopressor) 25 mg BID PO Last administered on 09/09/18at 21 :12; Start 09/09/18 at 21:00; Stop 09/11/18 at 13:19; Status DC Pantoprazole Sodium (Protonix) 40 mg DAILYAC PO ; Start 09/10/18 at 07:30; Stop 09/11/18 at 12:20; Status DC Tamsulosin HCl (Flomax) 0.4 mg DAILY PO ; Start 09/10/18 at 09:00; Stop at 09:56; Status DC Tramadol HCl (Ultram) 50 mg PRN Q6HRS PRN PO MODERATE PAIN; Start 09/09/18 at 17:15 Budesonide (Pulmicort) 0.5 mg RTBID NEB Last administered on 09/12/18at 07:47; Start 09/09/18 at 20:00; Stop 09/12/18 at 11:45; Status DC Diltiazem HCl (Cardizem 24hr Cd) 120 mg DAILY PO ; Start 09/10/18 at 09:00; Stop 09/11/18 at 13:13; Status DC Insulin Glargine (Lantus) 10 units QHS SQ Last administered on 09/09/18at 21:49 ; Start 09/09/18 at 21:00; Stop 09/10/18 at 10:35; Status DC Levothyroxine Sodium (Synthroid) 50 mcg DAILY06 PO ; Start 09/10/18 at 06:00; Stop 09/12/18 at 09:56; Status DC Lidocaine (Lidoderm) 1 patch DAILY TD Last administered on 09/13/18at 09:13; Start 09/10/18 at 09:00 Lisinopril (Prinivil) 2.5 mg DAILY PO ; Start 09/10/18 at 09:00; Stop at 13:13; Status DC Non-Formulary Medication (Tiotropium [place] (Spiriva)) 2 inh DAILY IH ; Start 09/10/18 at 09:00; Status UNV Warfarin Sodium (Coumadin) 7.5 mg DAILY16 PO ; Start 09/09/18 at 18:00; Stop 09/10/18 at 16:34; Status DC Insulin Human Lispro (HumaLOG) 0-9 UNITS TIDWMEALS SQ ; Start 09/10/18 at 08:00 ; Stop 09/11/18 at 13:13; Status DC Dextrose (Dextrose 50%-Water Syringe) 12.5 gm PRN Q15MIN PRN IV SEE COMMENTS; Start 09/09/18 at 17:15; Stop 09/12/18 at 08:17; Status DC Miscellaneous (Lidoderm Patch Removal) 1 ea QHS MC Last administered on at 20:47; Start 09/09/18 at 21:00 Albuterol/ Ipratropium (Duoneb) 3 ml RTQID NEB Last administered on 09/13/18at 08:03; Start 09/09/18 at 20:00 Warfarin Sodium (Coumadin Per Physician) 1 each PRN DAILY PRN MC SEE COMMENTS Last administered on 09/11/18at 11:21; Start 09/09/18 at 17:30; Stop 09/11/18 at 13:13; Status DC Sodium Chloride 1,000 ml @ 75 mls/hr [id number] IV ; Start 09/09/18 at 17:30; Stop 09/10/18 at 10:35; Status DC Lorazepam (Ativan) 2 mg 1X ONCE IV Last administered on 09/09/18at 17:30; Start 09/09/18 at 17:30; Stop 09/09/18 at 17:31; Status DC Clonidine HCl (Catapres) 0.1 mg PRN Q1HR PRN PO SBP > 180 or DBP > 100, MRX3; Start 09/09/18 at 17:30 Lorazepam (Ativan) 2 mg PRN Q15MIN PRN IV CIWA 8-14 Last administered on at 12:59; Start 09/09/18 at 17:30 Albuterol/ Ipratropium (Duoneb) 3 ml 1X ONCE NEB ; Start 09/09/18 at 17:30; Stop 09/09/18 at 17:31; Status DC Levofloxacin/ Dextrose 150 ml @ 100 mls/hr 1X ONCE IV Last administered on at 21:03; Start 09/09/18 at 17:30; Stop 09/09/18 at 18:59; Status DC Albuterol/ Ipratropium (Duoneb) 3 ml RTQID NEB ; Start 09/09/18 at 20:00; Status UNV Guaifenesin (Robitussin Dm) 10 ml PRN Q6HRS PRN PO COUGH; Start 09/09/18 at 19 :00 Levofloxacin/ Dextrose (Levaquin Per Pharmacy) 1 each PRN DAILY PRN MC SEE COMMENTS; Start 09/09/18 at 19:00; Stop 09/11/18 at 09:24; Status DC Heparin Sodium (Porcine) (Heparin Sodium) 5,000 unit Q8HRS SQ Last administered on 09/11/18at 05:48; Start 09/09/18 at 22:00; Stop 09/12/18 at 11 :01; Status DC Levofloxacin/ Dextrose 50 ml @ 50 mls/hr Q24H IV ; Start 09/10/18 at 20:00; Stop 09/10/18 at 20:00; Status DC Haloperidol Lactate (Haldol Inj) 5 mg PRN Q6HRS PRN IVP AGITATION Last administered on 09/13/18at 11:46; Start 09/10/18 at 01:15 Famotidine (Pepcid Vial) 20 mg QHS IVP Last administered on 09/12/18at 20:47; Start 09/10/18 at 21:00; Stop 09/13/18 at 08:50; Status DC Methylprednisolone Sodium Succinate (SOLU-Medrol 40MG VIAL) 40 mg Q12HR IV Last administered on 09/13/18at 09:13; Start 09/10/18 at 09:00 Chlordiazepoxide (Librium) 50 mg PRN Q6HRS PRN PO ANXIETY/AGITATION, 2ND CHOICE ; Start 09/10/18 at 10:45 Lorazepam (Ativan) 1 mg PRN DAILY PRN PO ANXIETY / AGITATION, 1ST CHOIC; Start 09/10/18 at 10:45 Dexmedetomidine HCl 200 mcg/ Sodium Chloride 50 ml @ 0 mls/hr CONT PRN IV PER PROTOCOL Last administered on 09/13/18at 12:09; Start 09/10/18 at 13:30 Sodium Chloride 500 ml @ 500 mls/hr 1X PRN PRN IV SEE COMMENTS; Start at 13:30 Atropine Sulfate (ATROPINE 0.5mg SYRINGE) 0.5 mg PRN Q5MIN PRN IV SEE COMMENTS ; Start 09/10/18 at 13:30; Stop 09/12/18 at 13:15; Status DC Levofloxacin/ Dextrose 100 ml @ 100 mls/hr Q24H IV Last administered on at 20:48; Start 09/10/18 at 20:00; Stop 09/11/18 at 09:36; Status DC Enalaprilat (Vasotec Inj) 1.25 mg PRN Q4HRS PRN IVP HYPERTENSION, 1ST CHOICE Last administered on 09/12/18at 20:19; Start 09/11/18 at 02:45 Vancomycin HCl (Vanco Per Pharmacy) 1 each PRN DAILY PRN MC SEE COMMENTS Last administered on 09/13/18at 08:44; Start 09/11/18 at 09:15 Vancomycin HCl 2 gm/Sodium Chloride 500 ml @ 250 mls/hr 1X ONCE IV Last administered on 09/11/18at 10:40; Start 09/11/18 at 09:30; Stop 09/11/18 at 11 :29; Status DC Doxycycline Hyclate (Vibra-Tab) 100 mg BID PO ; Start 09/11/18 at 10:00; Stop 09/11/18 at 15:16; Status DC Cefepime HCl (Maxipime) 1 gm Q8H IVP Last administered on 09/13/18at 10:09; Start 09/11/18 at 10:00 Vancomycin HCl 1.75 gm/Sodium Chloride 500 ml @ 250 mls/hr Q12H IV Last administered on 09/12/18at 22:58; Start 09/11/18 at 23:00; Stop 09/12/18 at 23 :59; Status DC Vancomycin HCl (Vancomycin Trough Level) 1 each 1X ONCE MC Last administered on 09/12/18at 22:26; Start 09/12/18 at 22:30; Stop 09/12/18 at 22:31; Status DC Pantoprazole Sodium (PROTONIX VIAL for IV PUSH) 40 mg DAILYAC IVP Last administered on 09/13/18at 07:44; Start 09/11/18 at 12:30 Multivitamins 10 ml/Thiamine HCl 100 mg/Folic Acid 1 mg/Sodium Chloride 1,011.2 ml @ 0 mls/hr DAILY IV Last administered on 09/13/18at 08:01; Start 09/11/18 at 14:00 Insulin Human Lispro (HumaLOG) 0-7 UNITS TIDWMEALS SQ ; Start 09/11/18 at 17:00 ; Stop 09/11/18 at 17:00; Status DC Dextrose (Dextrose 50%-Water Syringe) 12.5 gm PRN Q15MIN PRN IV SEE COMMENTS; Start 09/11/18 at 13:00 Insulin Human Lispro (HumaLOG) 0-7 UNITS Q6HRS SQ Last administered on at 05:49; Start 09/11/18 at 18:00 Levothyroxine Sodium 0.025 mcg/ Sodium Chloride 5 ml @ 0 mls/hr DAILY IVP ; Start 09/11/18 at 13:30; Stop 09/11/18 at 13:52; Status DC Magnesium Sulfate 50 ml @ 25 mls/hr 1X ONCE IV Last administered on at 15:40; Start 09/11/18 at 13:30; Stop 09/11/18 at 15:29; Status DC Levothyroxine Sodium 25 mcg/ Sodium Chloride 5 ml @ 0 mls/hr DAILY IVP Last administered on 09/13/18at 08:02; Start 09/11/18 at 13:52 Levothyroxine Sodium 25 mcg/ Sodium Chloride 5 ml @ 0 mls/hr 1X ONCE IVP Last administered on 09/11/18at 14:45; Start 09/11/18 at 14:45; Stop 09/11/18 at 14 :46; Status DC Doxycycline Hyclate 100 mg/ Dextrose 100 ml @ 50 mls/hr Q12HR IV Last administered on 09/13/18at 09:14; Start 09/11/18 at 16:00 Magnesium Sulfate 50 ml @ 25 mls/hr 1X ONCE IV Last administered on at 12:56; Start 09/12/18 at 11:30; Stop 09/12/18 at 13:29; Status DC Amino Acids/ Glycerin/ Electrolytes 1,000 ml @ 50 mls/hr Q20H IV Last administered on 09/13/18at 09:13; Start 09/12/18 at 11:30 Haloperidol Lactate (Haldol Inj) 10 mg Q8HRS IVP Last administered on at 05:46; Start 09/12/18 at 14:00 Dexmedetomidine HCl 200 mcg/ Sodium Chloride 50 ml @ 0 mls/hr CONT PRN IV PER PROTOCOL; Start 09/12/18 at 13:15; Stop 09/12/18 at 14:04; Status DC Sodium Chloride 500 ml @ 500 mls/hr 1X PRN PRN IV SEE COMMENTS; Start at 13:15 Atropine Sulfate (ATROPINE 0.5mg SYRINGE) 0.5 mg PRN Q5MIN PRN IV SEE COMMENTS ; Start 09/12/18 at 13:15 Morphine Sulfate (Morphine Sulfate) 2 mg PRN Q2HR PRN IV PAIN Last administered on 09/13/18at 04:12; Start 09/12/18 at 13:15 Metoprolol Tartrate (Lopressor) 25 mg BID PO ; Start 09/12/18 at 17:00; Stop 09/12/18 at 17:00; Status DC Metoprolol Tartrate (Lopressor Vial) 5 mg Q6HRS IVP Last administered on at 12:04; Start 09/12/18 at 18:00 Vancomycin HCl 2 gm/Sodium Chloride 500 ml @ 250 mls/hr Q12H IV Last administered on 09/13/18at 12:03; Start 09/13/18 at 11:00 Vancomycin HCl (Vancomycin Trough Level) 1 each 1X ONCE MC ; Start 09/14/18 at 10:30; Stop 09/14/18 at 10:31 Active Scripts Active Pantoprazole Sodium 40 Mg Tablet.dr 40 Mg PO DAILYAC Lidoderm (Lidocaine) 700 Mg Adh..patch 1 Patch TD DAILY 12hours on, 12 hours off Lisinopril 2.5 Mg Tablet 2.5 Mg PO DAILY Feosol (Ferrous Sulfate) 325 Mg Tablet 325 Mg PO DAILYAC Children's Aspirin (Aspirin) 81 Mg Tab.chew 81 Mg PO DAILYWBKFT Reported Ventolin Hfa Inhaler (Albuterol Sulfate) 18 Gm Hfa.aer.ad 2 Puff INH Q4HRS Mirtazapine 45 Mg Tablet 1 Tab PO QHS Glipizide 5 Mg Tablet 1 Tab PO BID Metformin Hcl 1,000 Mg Tablet 1,000 Mg PO BIDWMEALS Lantus (Insulin Glargine,Hum.rec.anlog) 100 Unit/1 Ml Vial 50 Unit SQ HS NITROGLYCERIN SubLingual (Nitroglycerin) 0.4 Mg Tab.subl 0.4 Mg SL PRN Q5MIN PRN Fluoxetine Hcl 20 Mg Capsule 3 Cap PO DAILY Novolin R (Insulin Regular, Human) 100 Unit/1 Ml Vial 100 Unit IJ QIDACHS Vitamin D3 (Cholecalciferol (Vitamin D3)) 1,000 Unit Tablet 1 Tab PO TID Vitamin B-12 (Cyanocobalamin (Vitamin B-12)) 1,000 Mcg Tablet 1 Tab PO DAILY Gemfibrozil 600 Mg Tablet 0.5 Tab PO BID Pepcid (Famotidine) 20 Mg Tablet 10 Mg PO BID Cardizem Cd (Diltiazem Hcl) 240 Mg Cap.er.24h 1 Cap PO DAILY Robaxin (Methocarbamol) 500 Mg Tablet 1 Tab PO BID PRN Niaspan (Niacin) 500 Mg Tab.er.24h 1 Tab PO QHS Gabapentin 600 Mg Tablet 300 Mg PO QID Symbicort 80-4.5 Mcg Inhaler (Budesonide/Formoterol Fumarate) 10.2 Gm Hfa.aer.ad 2 Puff IH BID Finasteride 5 Mg Tablet 1 Tab PO DAILY Levothyroxine Sodium 50 Mcg Tablet 1 Tab PO DAILY Tamsulosin Hcl 0.4 Mg Cap.er.24h 0.4 Mg PO BID Spiriva (Tiotropium [place]) 18 Mcg Cap.w.dev 2 Inh IH DAILY Hydrocodone-Apap 7.5-325 (Hydrocodone Bit/Acetaminophen) 1 Each Tablet 1 Tab PO Q4HRS PRN Metoprolol Tartrate 25 Mg Tablet 1 Tab PO BID Vitals/I & O Vital Sign - Last 24 Hours 09/12/18 09/12/18 09/12/18 09/12/18 13:49 14:00 15:00 16:00 Pulse 77 76 Resp 21 24 24 B/P (MAP) 132/90 (104) 139/90 (106) Pulse Ox 98 95 95 O2 Delivery BiPAP/CPAP BiPAP/CPAP BiPAP/CPAP Bi-pap 09/12/18 09/12/18 09/12/18 09/12/18 16:00 16:04 17:00 17:01 Pulse 78 82 Resp 24 24 24 B/P (MAP) 134/77 (96) 182/84 (116) Pulse Ox 95 96 95 95 O2 Delivery BiPAP/CPAP BiPAP/CPAP BiPAP/CPAP BiPAP/CPAP 09/12/18 09/12/18 09/12/18 09/12/18 17:03 17:30 18:00 18:04 Temp 98.6 98.6 Pulse 81 68 Resp 24 B/P (MAP) 182/84 190/89 (122) Pulse Ox 95 96 O2 Delivery BiPAP/CPAP BiPAP/CPAP BiPAP/CPAP 09/12/18 09/12/18 09/12/18 09/12/18 19:00 19:43 19:54 20:00 Pulse 74 67 Resp 21 B/P (MAP) 195/76 (115) 195/76 Pulse Ox 100 96 O2 Delivery BiPAP/CPAP BiPAP/CPAP Bi-pap 09/12/18 09/12/18 09/12/18 09/12/18 20:00 20:19 20:41 21:00 Temp 97.8 97.8 Pulse 78 76 66 Resp 27 20 B/P (MAP) 208/82 (124) 203/95 181/85 (117) Pulse Ox 90 96 97 O2 Delivery BiPAP/CPAP BiPAP/CPAP BiPAP/CPAP O2 Flow Rate 4.0 09/12/18 09/12/18 09/12/18 09/12/18 22:00 22:25 23:00 23:50 Pulse 76 75 Resp 19 21 B/P (MAP) 160/101 (120) 173/72 (105) Pulse Ox 91 96 95 90 O2 Delivery BiPAP/CPAP BiPAP/CPAP BiPAP/CPAP BiPAP/CPAP 09/12/18 09/13/18 09/13/18 09/13/18 23:55 00:00 00:00 01:00 Temp 99.2 99.2 Pulse 74 75 66 Resp 21 20 B/P (MAP) 179/82 179/87 (117) 167/71 (103) Pulse Ox 92 98 O2 Delivery Bi-pap BiPAP/CPAP BiPAP/CPAP 09/13/18 09/13/18 09/13/18 09/13/18 02:00 02:28 03:00 04:00 Pulse 64 60 Resp 22 20 B/P (MAP) 155/70 (98) 166/73 (104) Pulse Ox 99 98 98 O2 Delivery BiPAP/CPAP BiPAP/CPAP BiPAP/CPAP Bi-pap 09/13/18 09/13/18 09/13/18 09/13/18 04:00 04:42 05:00 05:21 Temp 98.7 98.7 Pulse 75 66 Resp 24 19 18 B/P (MAP) 172/74 (106) 159/70 (99) Pulse Ox 98 99 98 99 O2 Delivery BiPAP/CPAP BiPAP/CPAP BiPAP/CPAP 09/13/1818 18 09/13/18 05:48 06:00 07:00 08:00 Temp 97.7 97.7 Pulse 64 64 65 Resp 23 22 B/P (MAP) 156/70 156/70 (98) 155/64 (94) Pulse Ox 99 99 99 O2 Delivery BiPAP/CPAP BiPAP/CPAP BiPAP/CPAP 09/13/18 09/13/18 09/13/18 08:00 08:00 12:04 Pulse 68 105 Resp 20 B/P (MAP) 147/64 (91) 200/112 Pulse Ox 99 O2 Delivery Bi-pap BiPAP/CPAP Intake and Output 09/12/18 09/12/18 09/13/18 15:00 23:00 07:00 Intake Total 650 ml 1677 ml 1861 ml Output Total 1255 ml 1085 ml 1220 ml Balance -605 ml 592 ml 641 ml SAURABH DOTSON III DO Sep 13, 2018 13:19
[2018-09-13] MEDS: LABETALOL 20 MG/4 ML DISP.SYRIN. IVP PRN ×2 (15:00→18:58)
[2018-09-13] MEDS: ENALAPRILAT 1.25 MG/ML VIAL. IVP PRN (18:23)
--- NOTE | 2018-09-13 18:43 | PDOC ---
PROGRESS NOTES Assessment Assessment Toxic encephalopathy. Narcotics over dose. Hypertensive emergency, BP 244/127 mmHg. Hypertensive encephalopathy. Alcohol intoxication. Respiratory failure. Cardiac arrhythmia. CAD, s/p CABG. COPD. HTN,. HLD. DM. AKD. SABRINA on CPAP. Alcohol use/abuse. Obesity. RECOMMENDATIONS/PLAN: Continue life support in ICU. Alcohol detoxication treatment. Avoid Haldol as possible. Brain MRI w/o contrast when stable. EEG was not able to perform on him tried 2 times due to not stable. BP control. Continue Lipitor HS. Treat medical diseases. He has been on anticoagulant, Coumadin. Discussed with his in all detail at bedside in ICU on 09/13/18. HISTORY OF THE PRESENT ILLNESS: 67-y-old male patient with above medical diseases and chronic back pain obtained narcotics from [place] recently. He was found MS changes to be brought to the ER of [facility]. His family found that about 14 narcotic pills were missing and patient did drink alcohol during the time when he had narcotics. Past Medical History Cardiovascular: CAD, HTN, Hyperlipidemia, Other Pulmonary: COPD CENTRAL NERVOUS SYSTEM: Other GI: GERD, Other Heme/Onc: No pertinent hx Hepatobiliary: No pertinent hx Psych: Anxiety, Other Musculoskeletal: Osteoarthritis, Other Rheumatologic: No pertinent hx Infectious disease: No pertinent hx Renal/: No pertinent hx Endocrine: Diabetes Past Surgical History CABG Family History Heart Disease Allergies Coded Allergies: Penicillins (Verified Allergy, Intermediate, PEELING HANDS; TOLERATES AMOXICILLIN, 07/14/16) celecoxib (Verified Allergy, Intermediate, "i dont know", 07/09/16) gabapentin (Verified Allergy, Intermediate, "i dont know", 07/09/16) pregabalin (Verified Allergy, Intermediate, "i dont know", 07/09/16) tadalafil (Verified Allergy, Intermediate, "i dont know", 07/09/16) terazosin (Verified Allergy, Intermediate, "i dont know", 07/09/16) varenicline (Verified Allergy, Intermediate, "i dont know" , 07/09/16) MEDICATIONS: Refer to [facility] SOCIAL HISTORY: Lives with his at home. Denies illicit drug use. He drinks alcohol heavily for many years, but stopped for 2 weeks then resumed drinking before [facility]. REVIEW OF SYSTEMS: Constitutional: Obesity. Head: No recent traumatic brain or head injury. Skin: No edema, or rash. Ear: No infection. Eyes: No vision loss or color blindness. Nose: No bleeding or purulent discharges. Hearing: Hearing decrease. Neck: No injury. Cardiac: CAD, s/p CABG, HTN, HLD. Pulmonary: COPD. GI: No GI ulcer, GI bleeding. Urinary/genital: UTI. Endocrinologic: Diabetes Mellitus, obesity. Skeletomuscular: Chronic back pain. Neurological: see HP. Psychiatric: Alcohol use/abuse. Otherwise, not [id number] review of systems. PHYSICAL EXAMINATION: General appearance is in subacute distress. HEENT: Normocephalic and nontraumatic. Eyes, nose, ears, and throat are unremarkable. Neck is supple. No lymphadenopathy. No crepitus. Cardiovascular: S1, S2. PVCs noted. Pulmonary: Decreased to auscultation bilaterally. Abdomen: Bowel sounds are positive. Abdomen is soft, nontender, and nondistended. Extremities: No rash, lesions, or edema. No restriction of range of motion NEUROLOGICAL EXAMINATION: In confusional state. Not oriented to time, place and person. PERRL. EOMI not elicited due to not follow commands. CN: no focal findings. Muscle tone: within normal. Muscle strength: Moves all extremities to stimuli. DTR: 1- Plantar reflex: Neutral response bilaterally Gait: Unable to walk. Sensory exam: Withdrawal response noted to stimuli.. Not able to access cerebellar signs in this mentation. F-T-N test not performed due to not follow commands. Objective Objective Vital Signs Date Time Temp Pulse Resp B/P (MAP) Pulse Ox O2 Delivery O2 Flow Rate FiO2 09/13/18 18:23 65 186/90 09/13/18 18:00 22 100 BiPAP/CPAP 09/13/18 16:00 97.8 97.8 09/13/18 13:45 5.0 Intake and Output 09/13/18 07:00 Intake Total 4188 ml Output Total 3560 ml Balance 628 ml IV Total 4188 ml Output Urine Total 3560 ml Vitals Signs Vitals VS - Last 72 Hours, by Label Date Time Temp Pulse Resp B/P (MAP) Pulse Ox O2 Delivery O2 Flow Rate FiO2 09/13/18 18:23 65 186/90 09/13/18 18:00 75 22 186/90 (122) 100 BiPAP/CPAP 09/13/18 17:17 62 183/88 09/13/18 17:00 59 22 183/88 (119) 99 BiPAP/CPAP 09/13/18 16:02 98 BiPAP/CPAP 09/13/18 16:00 Bi-pap 09/13/18 16:00 97.8 79 18 189/94 (125) 97 BiPAP/CPAP 97.8 09/13/18 15:00 78 22 196/95 (128) 99 BiPAP/CPAP 09/13/18 15:00 77 193/83 09/13/18 14:00 80 28 122/77 (92) 95 BiPAP/CPAP 09/13/18 13:45 94 Nasal Cannula 5.0 09/13/18 13:00 56 16 151/87 (108) 95 BiPAP/CPAP 09/13/18 12:04 105 200/112 09/13/18 12:00 Bi-pap 09/13/18 12:00 98.4 103 22 155/73 (100) 92 BiPAP/CPAP 98.4 09/13/18 11:00 78 18 159/85 (109) 96 BiPAP/CPAP 09/13/18 10:00 52 18 156/67 (96) 99 BiPAP/CPAP 09/13/18 09:00 58 16 143/65 (91) 98 BiPAP/CPAP 09/13/18 08:00 68 20 147/64 (91) 99 BiPAP/CPAP 09/13/18 08:00 Bi-pap 09/13/18 08:00 99 BiPAP/CPAP 09/13/18 07:00 97.7 65 22 155/64 (94) 99 BiPAP/CPAP 97.7 09/13/18 06:00 64 23 156/70 (98) 99 BiPAP/CPAP 09/13/18 05:48 64 156/70 09/13/18 05:21 99 BiPAP/CPAP 09/13/18 05:00 66 18 159/70 (99) 98 BiPAP/CPAP 09/13/18 04:42 19 99 09/13/18 04:00 98.7 75 24 172/74 (106) 98 BiPAP/CPAP 98.7 09/13/18 04:00 Bi-pap 09/13/18 03:00 60 20 166/73 (104) 98 BiPAP/CPAP 09/13/18 02:28 98 BiPAP/CPAP 09/13/18 02:00 64 22 155/70 (98) 99 BiPAP/CPAP 09/13/18 01:00 66 20 167/71 (103) 98 BiPAP/CPAP 09/13/18 00:00 99.2 75 21 179/87 (117) 92 BiPAP/CPAP 99.2 09/13/18 00:00 Bi-pap 09/12/18 23:55 74 179/82 09/12/18 23:50 90 BiPAP/CPAP 09/12/18 23:00 75 21 173/72 (105) 95 BiPAP/CPAP 09/12/18 22:25 96 BiPAP/CPAP 09/12/18 22:00 76 19 160/101 (120) 91 BiPAP/CPAP 09/12/18 21:00 66 20 181/85 (117) 97 BiPAP/CPAP 09/12/18 20:41 96 BiPAP/CPAP 4.0 09/12/18 20:19 76 203/95 09/12/18 20:00 97.8 78 27 208/82 (124) 90 BiPAP/CPAP 97.8 09/12/18 20:00 Bi-pap 09/12/18 19:54 96 BiPAP/CPAP 09/12/18 19:43 67 195/76 18 19:00 74 21 195/76 (115) 100 BiPAP/CPAP 18 18:04 96 BiPAP/CPAP 18 18:00 98.6 68 24 190/89 (122) 95 BiPAP/CPAP 98.6 18 17:30 BiPAP/CPAP 18 17:03 81 182/84 18 17:01 24 95 BiPAP/CPAP 18 17:00 82 24 182/84 (116) 95 BiPAP/CPAP 18 16:04 96 BiPAP/CPAP 18 16:00 78 24 134/77 (96) 95 BiPAP/CPAP 18 16:00 Bi-pap 09/12/18 15:00 76 24 139/90 (106) 95 BiPAP/CPAP 09/12/18 14:00 77 24 132/90 (104) 95 BiPAP/CPAP 18 13:49 21 98 BiPAP/CPAP 09/12/18 13:11 96 BiPAP/CPAP 09/12/18 13:00 98.8 85 24 155/76 (102) 93 BiPAP/CPAP 98.8 09/12/18 12:00 Bi-pap 09/12/18 12:00 66 24 171/83 (112) 95 BiPAP/CPAP 09/12/18 11:56 95 BiPAP/CPAP 09/12/18 11:14 23 96 BiPAP/CPAP 09/12/18 11:00 81 24 155/76 (102) 95 BiPAP/CPAP 09/12/18 10:05 95 BiPAP/CPAP 09/12/18 10:00 62 25 147/76 (99) 94 BiPAP/CPAP 09/12/18 09:55 24 94 BiPAP/CPAP 09/12/18 09:24 20 94 BiPAP/CPAP 09/12/18 09:00 98.6 64 25 160/79 (106) 94 BiPAP/CPAP 98.6 09/12/18 08:00 75 25 180/86 (117) 96 BiPAP/CPAP 09/12/18 07:48 95 BiPAP/CPAP 09/12/18 07:26 Bi-pap 09/12/18 07:00 84 25 185/86 (119) 95 BiPAP/CPAP Laboratory Laboratory Laboratory Tests Test 09/12/18 22:15 09/12/18 23:14 09/13/18 05:30 09/13/18 05:37 Vancomycin Level Trough 8.9 mcg/mL (10.0-20.0) Vancomycin Last Dose Date 09/12/18 Vancomycin Last Dose Time 1100 Glucose (Fingerstick) 161 mg/dL (70-99) 156 mg/dL (70-99) White Blood Count 10.0 x10^3/uL (4.0-11.0) Red Blood Count 4.51 x10^6/uL (4.30-5.70) Hemoglobin 12.6 g/dL (13.0-17.5) Hematocrit 37.5 % (39.0-53.0) Mean Corpuscular Volume 83 fL (79-100) Mean Corpuscular Hemoglobin 28 pg (25-35) Mean Corpuscular Hemoglobin Concent 34 g/dL (31-37) Red Cell Distribution Width 14.0 % (11.5-14.5) Platelet Count 216 x10^3/uL (140-400) Neutrophils (%) (Auto) 84 % (31-73) Lymphocytes (%) (Auto) 9 % (24-48) Monocytes (%) (Auto) 7 % (0-9) Eosinophils (%) (Auto) 0 % (0-3) Basophils (%) (Auto) 0 % (0-3) Neutrophils # (Auto) 8.3 x10^3uL (1.8-7.7) Lymphocytes # (Auto) 0.9 x10^3/uL (1.0-4.8) Monocytes # (Auto) 0.7 x10^3/uL (0.0-1.1) Eosinophils # (Auto) 0.0 x10^3/uL (0.0-0.7) Basophils # (Auto) 0.0 x10^3/uL (0.0-0.2) Sodium Level 134 mmol/L (136-145) Potassium Level 4.7 mmol/L (3.5-5.1) Chloride Level 99 mmol/L (98-107) Carbon Dioxide Level 26 mmol/L (21-32) Anion Gap 9 (6-14) Blood Urea Nitrogen 20 mg/dL (8-26) Creatinine 0.8 mg/dL (0.7-1.3) Estimated GFR (Cockcroft-Gault) 95.8 Glucose Level 162 mg/dL (70-99) Calcium Level 8.9 mg/dL (8.5-10.1) Magnesium Level 1.9 mg/dL (1.8-2.4) Test 09/13/18 17:12 Glucose (Fingerstick) 154 mg/dL (70-99) Microbiology 09/09/18 Blood Culture - Preliminary, Resulted NO GROWTH AFTER 4 DAYS Medication Medications Current Medications Vancomycin HCl (Vancomycin Trough Level) 1 each 1X ONCE MC Last administered on 09/12/18at 22:26; Start 09/12/18 at 22:30; Stop 09/12/18 at 22:31; Status DC Vancomycin HCl (Vancomycin Trough Level) 1 each 1X ONCE MC ; Start 09/14/18 at 10:30; Stop 09/14/18 at 10:31 Vancomycin HCl 2 gm/Sodium Chloride 500 ml @ 250 mls/hr Q12H IV Last administered on 09/13/18at 12:03; Start 09/13/18 at 11:00 Comment Review of Relevant I have reviewed the following items barby (where applicable) has been applied. ADI MOON MD Sep 13, 2018 18:43
[2018-09-13] MEDS: PATCH REMOVAL. MC SCH (20:44)
--- NOTE | 2018-09-13 23:14 | RAD ---
Examination: PORTABLE CHEST 1V History: Central Line placement Comparison/Correlation: 09/11/2018 portable chest x-ray exam Findings: Portable frontal view of the chest was obtained. Right internal jugular catheter terminates overlying the superior aspect of the superior vena cava. Sternal wires are present. Heart size is borderline. Pulmonary vasculature is mildly congested. No pneumothorax. No pleural effusion. Old rib fractures. Impression: Right internal jugular catheter terminates at the expected level of the superior aspect of the superior vena cava. No pneumothorax. Pulmonary vasculature congestion. Electronically signed by: Sky Bautista MD (09/13/2018 11:11 PM) [facility]
[2018-09-14] VITALS (23 sets, daily range): BP systolic 140–196; BP diastolic 64–96
[2018-09-14] MEDS: DEXMEDETOMIDINE 200 MCG in IV NORMAL SALINE 50ML 48 ML IV PRN ×15 (00:02→23:40)
[2018-09-14] MEDS: MORPHINE SULFATE 2 MG/ML VIAL. IV PRN ×2 (00:52→05:10)
[2018-09-14] MEDS: METOPROLOL TARTRATE 5 MG/5 ML VIAL. IVP SCH ×5 (01:05→23:33)
[2018-09-14] MEDS: VANCOMYCIN 2 GM in IV NORMAL SALINE 500ML BAG 500 ML IV SCH ×3 (01:05→23:26)
[2018-09-14] MEDS: CEFEPIME HCL IV Push 1 GM VIAL. IVP SCH ×3 (02:24→17:40)
[2018-09-14 05:14] LABS: BASO # 0.1 x10^3/uL (0.0-0.2); BASO % 1 % (0-3); EOS % 0 % (0-3); HEMATOCRIT 38.2 % (39.0-53.0); HEMOGLOBIN 12.9 g/dL (13.0-17.5); LYMPH # 0.9 x10^3/uL (1.0-4.8); LYMPH % 9 % (24-48); MEAN CORPUSCULAR HEMOGLOBIN 28 pg (25-35); MEAN CORPUSCULAR HGB CONC 34 g/dL (31-37); MEAN CORPUSCULAR VOLUME 83 fL (79-100); MONO # 0.6 x10^3/uL (0.0-1.1); MONO % 6 % (0-9); NEUT # 8.7 x10^3uL (1.8-7.7); NEUT % 85 % (31-73); PLATELET COUNT 231 x10^3/uL (140-400); RED BLOOD COUNT 4.59 x10^6/uL (4.30-5.70); RED CELL DISTRIBUTION WIDTH 14.2 % (11.5-14.5); WHITE BLOOD COUNT 10.3 x10^3/uL (4.0-11.0)
[2018-09-14 05:30] LABS: CALCIUM 8.9 mg/dL (8.5-10.1); CREATININE 0.7 mg/dL (0.7-1.3); GFR 111.8; POTASSIUM 4.5 mmol/L (3.5-5.1)
[2018-09-14] MEDS: HALOPERIDOL LACTATE 5 MG/ML VIAL. IVP SCH ×3 (05:38→21:55)
[2018-09-14] MEDS: INSULIN LISPRO 300 UNITS/3 ML INSULN.PEN. SQ SCH ×5 (05:41→23:39)
[2018-09-14] MEDS: IPRATRPIUM/ALBUTEROL 0.5/2.5MG 3 ML NEBU. NEB SCH ×4 (07:35→19:49)
[2018-09-14] MEDS: PANTOPRAZOLE IV PUSH 40 MG VIAL. IVP SCH (07:51)
[2018-09-14] MEDS: AMINO AC 3%/ELECTROLYTE/GLYCER 1,000 ML IV SCH ×2 (07:51→23:27)
[2018-09-14] MEDS: NITROGLYCERIN OINT 1 GM PACKET. TP SCH ×4 (08:20→23:34)
[2018-09-14] MEDS: DOXYCYCLINE HYCLATE 100 MG in IV DEXTROSE 5% 100ML 100 ML IV SCH ×2 (08:21→20:40)
[2018-09-14] MEDS: methylPREDNISolone SOD SUCC PF 40 MG/ML VIAL. IV SCH (08:24)
--- NOTE | 2018-09-14 08:29 | PDOC ---
CARDIO Progress Notes Date and Time Date of Service 09/14/2018 Time of Evaluation 0820 Subjective Subjective: Other (sedated) Vitals Vitals Vital Signs Date Time Temp Pulse Resp B/P (MAP) Pulse Ox O2 Delivery O2 Flow Rate FiO2 09/14/18 07:36 99 BiPAP/CPAP 09/14/18 07:00 56 20 173/82 (112) 09/14/18 04:00 97.6 97.6 09/13/18 13:45 5.0 Weight Weight [ ] Input and Output Intake and Output Intake and Output 09/14/18 07:00 Intake Total 4110.77 ml Output Total 4355 ml Balance -244.23 ml IV Total 4110.77 ml Output Urine Total 4355 ml Laboratory Labs Laboratory Tests Test 09/13/18 17:12 09/14/18 00:53 09/14/18 04:50 09/14/18 05:25 Glucose (Fingerstick) 154 mg/dL (70-99) 149 mg/dL (70-99) 157 mg/dL (70-99) White Blood Count 10.3 x10^3/uL (4.0-11.0) Red Blood Count 4.59 x10^6/uL (4.30-5.70) Hemoglobin 12.9 g/dL (13.0-17.5) Hematocrit 38.2 % (39.0-53.0) Mean Corpuscular Volume 83 fL (79-100) Mean Corpuscular Hemoglobin 28 pg (25-35) Mean Corpuscular Hemoglobin Concent 34 g/dL (31-37) Red Cell Distribution Width 14.2 % (11.5-14.5) Platelet Count 231 x10^3/uL (140-400) Neutrophils (%) (Auto) 85 % (31-73) Lymphocytes (%) (Auto) 9 % (24-48) Monocytes (%) (Auto) 6 % (0-9) Eosinophils (%) (Auto) 0 % (0-3) Basophils (%) (Auto) 1 % (0-3) Neutrophils # (Auto) 8.7 x10^3uL (1.8-7.7) Lymphocytes # (Auto) 0.9 x10^3/uL (1.0-4.8) Monocytes # (Auto) 0.6 x10^3/uL (0.0-1.1) Eosinophils # (Auto) 0.0 x10^3/uL (0.0-0.7) Basophils # (Auto) 0.1 x10^3/uL (0.0-0.2) Sodium Level 134 mmol/L (136-145) Potassium Level 4.5 mmol/L (3.5-5.1) Chloride Level 98 mmol/L (98-107) Carbon Dioxide Level 26 mmol/L (21-32) Anion Gap 10 (6-14) Blood Urea Nitrogen 19 mg/dL (8-26) Creatinine 0.7 mg/dL (0.7-1.3) Estimated GFR (Cockcroft-Gault) 111.8 Glucose Level 168 mg/dL (70-99) Calcium Level 8.9 mg/dL (8.5-10.1) Microbiology Micro Microbiology 09/09/18 Blood Culture - Preliminary, Resulted NO GROWTH AFTER 4 DAYS Physical Exam HEENT: Neck Supple W Full Motion Chest: Symmetric LUNGS: Other (diminished bases, bipap in place) Heart: S1S2, RRR (SR with PACs) Abdomen: Soft N/T, Other (obese) Extremities: No Edema, No Calf Tenderness Neurology: other (sedated) Assessment Assessment 1. Malignant HTN: remains NPO. labile 2. Metabolic/toxic encephalopathy: currently on precedex 3. Chronic alcoholism/binge drinking 4. Acute on chronic respiratory failure; multifactorial COPD/ETOH/SBARINA/ pneumonia. Bipap in place. Pulmonary following 5. CAD; s/p [facility] 12/2015 [facility]. EF at 50% grossly nml WM. 6. Possible sepsis/bacteremia; G+ 2/4 7. WARREN; resolved 8. AAA with previous EVAR 9. Hyperlipidemia;: not on goal 10. Hx of PAFIB: SR with PACs 11. DM, II 12. Chronic back pain; opioid dependent. Possible overdose. 13. Hypomagnesemia Recommendations 1. Continue IV lopressor. Rectal ASA for now then convert to PO for stroke prevention. Has been off coumadin for 2 yrs per family. 2. Start NTG paste for better BP control. Continue with vasotec PRN. No clonidine as this may induced bradycardia. 3. Supportive care. Restart PO secondary prevention measures when able to take PO. WILFREDO SOLOMON APRN Sep 14, 2018 08:29
--- NOTE | 2018-09-14 08:43 | PDOC ---
Infectious Disease Note Subjective Subjective On bipap and agitated at times,, sedated ROS ROS no n/v/d/fever Vital Sign Vital Signs Vital Signs Date Time Temp Pulse Resp B/P (MAP) Pulse Ox O2 Delivery O2 Flow Rate FiO2 09/14/18 08:20 61 178/82 09/14/18 07:36 99 BiPAP/CPAP 09/14/18 07:00 20 09/14/18 04:00 97.6 97.6 09/13/18 13:45 5.0 Physical Exam PHYSICAL EXAM GEN: appears comfortable currently - on Bipap HEENT: Pupils are equal and reactive. He has normal conjunctivae.but some suffusion NECK: Supple - he moved from side to side. No gross JVD. LUNGS: Decreased in the bases. HEART: S1, S2, mild tachycardia. ABDOMEN: Obese, soft with decreased bowel sounds. GENITOURINARY: Mary is in place. He has clearing urine. EXTREMITIES: Without clubbing, cyanosis with trace edema. MITTS SKIN: Warm to touch without generalized signs of rash. NEUROLOGIC: He is confused. RIJ - clean. Labs Lab Laboratory Tests Test 09/13/18 17:12 09/14/18 00:53 09/14/18 04:50 09/14/18 05:25 Glucose (Fingerstick) 154 mg/dL (70-99) 149 mg/dL (70-99) 157 mg/dL (70-99) White Blood Count 10.3 x10^3/uL (4.0-11.0) Red Blood Count 4.59 x10^6/uL (4.30-5.70) Hemoglobin 12.9 g/dL (13.0-17.5) Hematocrit 38.2 % (39.0-53.0) Mean Corpuscular Volume 83 fL (79-100) Mean Corpuscular Hemoglobin 28 pg (25-35) Mean Corpuscular Hemoglobin Concent 34 g/dL (31-37) Red Cell Distribution Width 14.2 % (11.5-14.5) Platelet Count 231 x10^3/uL (140-400) Neutrophils (%) (Auto) 85 % (31-73) Lymphocytes (%) (Auto) 9 % (24-48) Monocytes (%) (Auto) 6 % (0-9) Eosinophils (%) (Auto) 0 % (0-3) Basophils (%) (Auto) 1 % (0-3) Neutrophils # (Auto) 8.7 x10^3uL (1.8-7.7) Lymphocytes # (Auto) 0.9 x10^3/uL (1.0-4.8) Monocytes # (Auto) 0.6 x10^3/uL (0.0-1.1) Eosinophils # (Auto) 0.0 x10^3/uL (0.0-0.7) Basophils # (Auto) 0.1 x10^3/uL (0.0-0.2) Sodium Level 134 mmol/L (136-145) Potassium Level 4.5 mmol/L (3.5-5.1) Chloride Level 98 mmol/L (98-107) Carbon Dioxide Level 26 mmol/L (21-32) Anion Gap 10 (6-14) Blood Urea Nitrogen 19 mg/dL (8-26) Creatinine 0.7 mg/dL (0.7-1.3) Estimated GFR (Cockcroft-Gault) 111.8 Glucose Level 168 mg/dL (70-99) Calcium Level 8.9 mg/dL (8.5-10.1) Micro BC coag neg staph Objective Assessment Fever- better - procalcitonin and Sed rate normal Bacteremia ? sepsis 10/30 POA - GPC - ID pending - ECHO 09/12 very limited,, likely contaminant Encephalopathy - on Ativan - BP improving h/o ETOH and hydrocodone PCN allergy - has had amox H/o SVT Acute Resp failure - ? CAP vs AECOPD - on Bipap - on steroids HTN DO - hydrocodone Hematuria H/o Compression fractures h/o ETOH abuse Plan Plan of Care Cont Vanc Doxy and cefepime for now,, soon to start scaling down F/u labs and cults MIRNA WALKER MD Sep 14, 2018 08:43
[2018-09-14] MEDS: NORMAL SALINE IVP SCH (09:00)
[2018-09-14] MEDS: LEVOTHYROXINE SODIUM IVP SCH (09:00)
[2018-09-14] MEDS: LIDOCAINE (700MG/PATCH) PATCH. TD SCH (09:01)
[2018-09-14] MEDS: MULTIVIT INFUSN,ADULT 4,VIT K 10 ML, THIAMINE INJ 100 MG, FOLIC ACID INJ 1 MG in IV NOR... IV SCH (09:01)
--- NOTE | 2018-09-14 09:45 | PDOC ---
PROGRESS NOTES Chief Complaint Chief Complaint Alcohol withdrawal Rhabdomyolysis- acute kidney injury secondary to above Hypercapnic/hypoxic respiratory failure in a super morbidly obese on NIPPV SABRINA, need CPAP at night Possible pickwickian syndrome CAP/atelectasis on chest x-ray History of CAD, CABG COPD flare History of sepsis/UTI History of IBS, alternating bowel movements History of alcoholism AK I on CK D/ VMN Diabetes Acute on chronic back pain-took 15 Beasley in the last 12 hours because of back pain Accel hypertension History of Present Illness History of Present Illness Patient seen and examined in ICU Spoke to nursing at bedside. Spoke with patient's at bedside Vitals Vitals Vital Signs Date Time Temp Pulse Resp B/P (MAP) Pulse Ox O2 Delivery O2 Flow Rate FiO2 09/14/18 08:46 99 BiPAP/CPAP 09/14/18 08:20 61 178/82 09/14/18 07:00 20 09/14/18 04:00 97.6 97.6 09/13/18 13:45 5.0 Physical Exam Physical Exam GEN: appears comfortable currently - on Bipap HEENT: Pupils are equal and reactive. He has normal conjunctivae.but some suffusion NECK: Supple - he moved from side to side. No gross JVD. LUNGS: Decreased in the bases. HEART: S1, S2, mild tachycardia. ABDOMEN: Obese, soft with decreased bowel sounds. GENITOURINARY: Mary is in place. He has clearing urine. EXTREMITIES: Without clubbing, cyanosis with trace edema. MITTS SKIN: Warm to touch without generalized signs of rash. NEUROLOGIC: He is confused. RIJ - clean. General: mild distress, Other (confused) Heart: Regular rate, Normal S1, Normal S2, Other (distant heart tones. ) Lungs: Crackles Abdomen: Soft, Other (obese) Extremities: No edema, Normal pulses Skin: No significant lesion Labs LABS Laboratory Tests Test 09/13/18 17:12 09/14/18 00:53 09/14/18 04:50 09/14/18 05:25 Glucose (Fingerstick) 154 mg/dL (70-99) 149 mg/dL (70-99) 157 mg/dL (70-99) White Blood Count 10.3 x10^3/uL (4.0-11.0) Red Blood Count 4.59 x10^6/uL (4.30-5.70) Hemoglobin 12.9 g/dL (13.0-17.5) Hematocrit 38.2 % (39.0-53.0) Mean Corpuscular Volume 83 fL (79-100) Mean Corpuscular Hemoglobin 28 pg (25-35) Mean Corpuscular Hemoglobin Concent 34 g/dL (31-37) Red Cell Distribution Width 14.2 % (11.5-14.5) Platelet Count 231 x10^3/uL (140-400) Neutrophils (%) (Auto) 85 % (31-73) Lymphocytes (%) (Auto) 9 % (24-48) Monocytes (%) (Auto) 6 % (0-9) Eosinophils (%) (Auto) 0 % (0-3) Basophils (%) (Auto) 1 % (0-3) Neutrophils # (Auto) 8.7 x10^3uL (1.8-7.7) Lymphocytes # (Auto) 0.9 x10^3/uL (1.0-4.8) Monocytes # (Auto) 0.6 x10^3/uL (0.0-1.1) Eosinophils # (Auto) 0.0 x10^3/uL (0.0-0.7) Basophils # (Auto) 0.1 x10^3/uL (0.0-0.2) Sodium Level 134 mmol/L (136-145) Potassium Level 4.5 mmol/L (3.5-5.1) Chloride Level 98 mmol/L (98-107) Carbon Dioxide Level 26 mmol/L (21-32) Anion Gap 10 (6-14) Blood Urea Nitrogen 19 mg/dL (8-26) Creatinine 0.7 mg/dL (0.7-1.3) Estimated GFR (Cockcroft-Gault) 111.8 Glucose Level 168 mg/dL (70-99) Calcium Level 8.9 mg/dL (8.5-10.1) Review of Systems Review of Systems unable to obtain Assessment and Plan Assessmemt and Plan Alcohol withdrawal Rhabdomyolysis- acute kidney injury secondary to above Hypercapnic/hypoxic respiratory failure in a super morbidly obese on NIPPV SABRINA, need CPAP at night Possible pickwickian syndrome CAP/atelectasis on chest x-ray History of CAD, CABG COPD flare History of sepsis/UTI History of IBS, alternating bowel movements History of alcoholism AK I on CK D/ VMN Diabetes Acute on chronic back pain-took 15 Beasley in the last 12 hours because of back pain Accel hypertension Plan Continue ICU monitoring Sedation D/C'd yesterday Continue BiPap and Abx per pulm and ID respectively [facility] protocol for alcohol withdrawal Supportive Care Comment Review of Relevant I have reviewed the following items barby (where applicable) has been applied. Labs Laboratory Tests Test 09/12/18 12:57 09/12/18 17:21 09/12/18 22:15 09/12/18 23:14 Glucose (Fingerstick) 160 mg/dL (70-99) 126 mg/dL (70-99) 161 mg/dL (70-99) Vancomycin Level Trough 8.9 mcg/mL (10.0-20.0) Vancomycin Last Dose Date 09/12/18 Vancomycin Last Dose Time 1100 Test 09/13/18 05:30 09/13/18 05:37 09/13/18 17:12 09/14/18 00:53 White Blood Count 10.0 x10^3/uL (4.0-11.0) Red Blood Count 4.51 x10^6/uL (4.30-5.70) Hemoglobin 12.6 g/dL (13.0-17.5) Hematocrit 37.5 % (39.0-53.0) Mean Corpuscular Volume 83 fL (79-100) Mean Corpuscular Hemoglobin 28 pg (25-35) Mean Corpuscular Hemoglobin Concent 34 g/dL (31-37) Red Cell Distribution Width 14.0 % (11.5-14.5) Platelet Count 216 x10^3/uL (140-400) Neutrophils (%) (Auto) 84 % (31-73) Lymphocytes (%) (Auto) 9 % (24-48) Monocytes (%) (Auto) 7 % (0-9) Eosinophils (%) (Auto) 0 % (0-3) Basophils (%) (Auto) 0 % (0-3) Neutrophils # (Auto) 8.3 x10^3uL (1.8-7.7) Lymphocytes # (Auto) 0.9 x10^3/uL (1.0-4.8) Monocytes # (Auto) 0.7 x10^3/uL (0.0-1.1) Eosinophils # (Auto) 0.0 x10^3/uL (0.0-0.7) Basophils # (Auto) 0.0 x10^3/uL (0.0-0.2) Sodium Level 134 mmol/L (136-145) Potassium Level 4.7 mmol/L (3.5-5.1) Chloride Level 99 mmol/L (98-107) Carbon Dioxide Level 26 mmol/L (21-32) Anion Gap 9 (6-14) Blood Urea Nitrogen 20 mg/dL (8-26) Creatinine 0.8 mg/dL (0.7-1.3) Estimated GFR (Cockcroft-Gault) 95.8 Glucose Level 162 mg/dL (70-99) Calcium Level 8.9 mg/dL (8.5-10.1) Magnesium Level 1.9 mg/dL (1.8-2.4) Glucose (Fingerstick) 156 mg/dL (70-99) 154 mg/dL (70-99) 149 mg/dL (70-99) Test 09/14/18 04:50 09/14/18 05:25 White Blood Count 10.3 x10^3/uL (4.0-11.0) Red Blood Count 4.59 x10^6/uL (4.30-5.70) Hemoglobin 12.9 g/dL (13.0-17.5) Hematocrit 38.2 % (39.0-53.0) Mean Corpuscular Volume 83 fL (79-100) Mean Corpuscular Hemoglobin 28 pg (25-35) Mean Corpuscular Hemoglobin Concent 34 g/dL (31-37) Red Cell Distribution Width 14.2 % (11.5-14.5) Platelet Count 231 x10^3/uL (140-400) Neutrophils (%) (Auto) 85 % (31-73) Lymphocytes (%) (Auto) 9 % (24-48) Monocytes (%) (Auto) 6 % (0-9) Eosinophils (%) (Auto) 0 % (0-3) Basophils (%) (Auto) 1 % (0-3) Neutrophils # (Auto) 8.7 x10^3uL (1.8-7.7) Lymphocytes # (Auto) 0.9 x10^3/uL (1.0-4.8) Monocytes # (Auto) 0.6 x10^3/uL (0.0-1.1) Eosinophils # (Auto) 0.0 x10^3/uL (0.0-0.7) Basophils # (Auto) 0.1 x10^3/uL (0.0-0.2) Sodium Level 134 mmol/L (136-145) Potassium Level 4.5 mmol/L (3.5-5.1) Chloride Level 98 mmol/L (98-107) Carbon Dioxide Level 26 mmol/L (21-32) Anion Gap 10 (6-14) Blood Urea Nitrogen 19 mg/dL (8-26) Creatinine 0.7 mg/dL (0.7-1.3) Estimated GFR (Cockcroft-Gault) 111.8 Glucose Level 168 mg/dL (70-99) Calcium Level 8.9 mg/dL (8.5-10.1) Glucose (Fingerstick) 157 mg/dL (70-99) Laboratory Tests Test 09/13/18 17:12 09/14/18 00:53 09/14/18 04:50 09/14/18 05:25 Glucose (Fingerstick) 154 mg/dL (70-99) 149 mg/dL (70-99) 157 mg/dL (70-99) White Blood Count 10.3 x10^3/uL (4.0-11.0) Red Blood Count 4.59 x10^6/uL (4.30-5.70) Hemoglobin 12.9 g/dL (13.0-17.5) Hematocrit 38.2 % (39.0-53.0) Mean Corpuscular Volume 83 fL (79-100) Mean Corpuscular Hemoglobin 28 pg (25-35) Mean Corpuscular Hemoglobin Concent 34 g/dL (31-37) Red Cell Distribution Width 14.2 % (11.5-14.5) Platelet Count 231 x10^3/uL (140-400) Neutrophils (%) (Auto) 85 % (31-73) Lymphocytes (%) (Auto) 9 % (24-48) Monocytes (%) (Auto) 6 % (0-9) Eosinophils (%) (Auto) 0 % (0-3) Basophils (%) (Auto) 1 % (0-3) Neutrophils # (Auto) 8.7 x10^3uL (1.8-7.7) Lymphocytes # (Auto) 0.9 x10^3/uL (1.0-4.8) Monocytes # (Auto) 0.6 x10^3/uL (0.0-1.1) Eosinophils # (Auto) 0.0 x10^3/uL (0.0-0.7) Basophils # (Auto) 0.1 x10^3/uL (0.0-0.2) Sodium Level 134 mmol/L (136-145) Potassium Level 4.5 mmol/L (3.5-5.1) Chloride Level 98 mmol/L (98-107) Carbon Dioxide Level 26 mmol/L (21-32) Anion Gap 10 (6-14) Blood Urea Nitrogen 19 mg/dL (8-26) Creatinine 0.7 mg/dL (0.7-1.3) Estimated GFR (Cockcroft-Gault) 111.8 Glucose Level 168 mg/dL (70-99) Calcium Level 8.9 mg/dL (8.5-10.1) Microbiology 09/09/18 Blood Culture - Preliminary, Resulted NO GROWTH AFTER 4 DAYS Medications Current Medications Thiamine Mononitrate (Vitamin B-1) 100 mg 1X STAT PO Last administered on at 14:50; Start 09/09/18 at 14:38; Stop 09/09/18 at 14:41; Status DC Folic Acid (Folic Acid) 1 mg 1X STAT PO Last administered on 09/09/18at 14:50 ; Start 09/09/18 at 14:38; Stop 09/09/18 at 14:41; Status DC Sodium Chloride 1,000 ml @ 1,000 mls/hr 1X ONCE IV Last administered on 09/09at 14:50; Start 09/09/18 at 15:00; Stop 09/09/18 at 15:59; Status DC Labetalol HCl (Normodyne Iv Push) 20 mg 1X ONCE IVP Last administered on 09/09at 16:53; Start 09/09/18 at 17:00; Stop 09/09/18 at 17:01; Status DC Chlordiazepoxide (Librium) 25 mg PRN Q6HRS PRN PO ANXIETY / AGITATION Last administered on 09/09/18at 22:35; Start 09/09/18 at 17:00; Stop 09/10/18 at 10 :35; Status DC Acetaminophen (Tylenol) 500 mg PRN Q6HRS PRN PO MILD PAIN / TEMP; Start at 17:00 Morphine Sulfate (Morphine Sulfate) 2 mg PRN Q2HR PRN IV MODERATE TO SEVERE PAIN Last administered on 09/12/18at 11:14; Start 09/09/18 at 17:00; Stop at 11:45; Status DC Sodium Chloride 1,000 ml @ 100 mls/hr Q10H IV Last administered on 09/09/18at 19:30; Start 09/09/18 at 18:00; Stop 09/10/18 at 10:35; Status DC Multivitamins (Thera M Plus) 1 tab DAILY PO ; Start 09/10/18 at 09:00; Stop at 13:13; Status DC Thiamine Mononitrate (Vitamin B-1) 100 mg DAILY PO ; Start 09/10/18 at 09:00; Stop 09/11/18 at 13:13; Status DC Folic Acid (Folic Acid) 1 mg DAILY PO ; Start 09/10/18 at 09:00; Stop at 13:13; Status DC Labetalol HCl (Normodyne Iv Push) 20 mg PRN Q2HR PRN IVP HYPERTENSION, 2ND CHOICE Last administered on 09/13/18at 18:58; Start 09/09/18 at 17:00 Nicotine (Nicoderm Cq 21mg) 1 patch PRN DAILY PRN TD SMOKING CESSATION; Start 09/09/18 at 17:15; Stop 09/11/18 at 13:13; Status DC Oxycodone/ Acetaminophen (Percocet 5/325) 1 tab PRN Q4HRS PRN PO SEVERE PAIN; Start 09/09/18 at 17:15 Diphenhydramine HCl (Benadryl) 25 mg PRN QHS PRN PO INSOMNIA; Start 09/09/18 at 17:15 Aspirin (Children'S Aspirin) 81 mg DAILYWBKFT PO ; Start 09/10/18 at 08:00; Stop 09/12/18 at 09:56; Status DC Atorvastatin Calcium (Lipitor) 40 mg QHS PO Last administered on 09/09/18at 21: 11; Start 09/09/18 at 21:00; Stop 09/12/18 at 09:56; Status DC Atorvastatin Calcium (Lipitor) 40 mg QHS PO ; Start 09/09/18 at 21:00; Status UNV Duloxetine HCl (Cymbalta) 30 mg BID PO Last administered on 09/09/18at 21:12; Start 09/09/18 at 21:00; Stop 09/11/18 at 13:13; Status DC Ferrous Sulfate (Feosol) 325 mg DAILYAC PO ; Start 09/10/18 at 07:30; Stop at 13:13; Status DC Finasteride (Proscar) 5 mg DAILY PO ; Start 09/10/18 at 09:00; Stop 09/12/18 at 09:56; Status DC Lorazepam (Ativan) 0.5 mg PRN DAILY PRN PO ANXIETY / AGITATION; Start at 17:15; Stop 09/10/18 at 10:35; Status DC Metoprolol Tartrate (Lopressor) 25 mg BID PO Last administered on 09/09/18at 21 :12; Start 09/09/18 at 21:00; Stop 09/11/18 at 13:19; Status DC Pantoprazole Sodium (Protonix) 40 mg DAILYAC PO ; Start 09/10/18 at 07:30; Stop 09/11/18 at 12:20; Status DC Tamsulosin HCl (Flomax) 0.4 mg DAILY PO ; Start 09/10/18 at 09:00; Stop at 09:56; Status DC Tramadol HCl (Ultram) 50 mg PRN Q6HRS PRN PO MODERATE PAIN; Start 09/09/18 at 17:15 Budesonide (Pulmicort) 0.5 mg RTBID NEB Last administered on 09/12/18at 07:47; Start 09/09/18 at 20:00; Stop 09/12/18 at 11:45; Status DC Diltiazem HCl (Cardizem 24hr Cd) 120 mg DAILY PO ; Start 09/10/18 at 09:00; Stop 09/11/18 at 13:13; Status DC Insulin Glargine (Lantus) 10 units QHS SQ Last administered on 09/09/18at 21:49 ; Start 09/09/18 at 21:00; Stop 09/10/18 at 10:35; Status DC Levothyroxine Sodium (Synthroid) 50 mcg DAILY06 PO ; Start 09/10/18 at 06:00; Stop 09/12/18 at 09:56; Status DC Lidocaine (Lidoderm) 1 patch DAILY TD Last administered on 09/14/18at 09:01; Start 09/10/18 at 09:00 Lisinopril (Prinivil) 2.5 mg DAILY PO ; Start 09/10/18 at 09:00; Stop at 13:13; Status DC Non-Formulary Medication (Tiotropium Freedom (Spiriva)) 2 inh DAILY IH ; Start 09/10/18 at 09:00; Status UNV Warfarin Sodium (Coumadin) 7.5 mg DAILY16 PO ; Start 09/09/18 at 18:00; Stop 09/10/18 at 16:34; Status DC Insulin Human Lispro (HumaLOG) 0-9 UNITS TIDWMEALS SQ ; Start 09/10/18 at 08:00 ; Stop 09/11/18 at 13:13; Status DC Dextrose (Dextrose 50%-Water Syringe) 12.5 gm PRN Q15MIN PRN IV SEE COMMENTS; Start 09/09/18 at 17:15; Stop 09/12/18 at 08:17; Status DC Miscellaneous (Lidoderm Patch Removal) 1 ea QHS MC Last administered on at 20:44; Start 09/09/18 at 21:00 Albuterol/ Ipratropium (Duoneb) 3 ml RTQID NEB Last administered on 09/14/18at 07:35; Start 09/09/18 at 20:00 Warfarin Sodium (Coumadin Per Physician) 1 each PRN DAILY PRN MC SEE COMMENTS Last administered on 09/11/18at 11:21; Start 09/09/18 at 17:30; Stop 09/11/18 at 13:13; Status DC Sodium Chloride 1,000 ml @ 75 mls/hr [id number] IV ; Start 09/09/18 at 17:30; Stop 09/10/18 at 10:35; Status DC Lorazepam (Ativan) 2 mg 1X ONCE IV Last administered on 09/09/18at 17:30; Start 09/09/18 at 17:30; Stop 09/09/18 at 17:31; Status DC Clonidine HCl (Catapres) 0.1 mg PRN Q1HR PRN PO SBP > 180 or DBP > 100, MRX3; Start 09/09/18 at 17:30 Lorazepam (Ativan) 2 mg PRN Q15MIN PRN IV CIWA 8-14 Last administered on at 05:10; Start 09/09/18 at 17:30 Albuterol/ Ipratropium (Duoneb) 3 ml 1X ONCE NEB ; Start 09/09/18 at 17:30; Stop 09/09/18 at 17:31; Status DC Levofloxacin/ Dextrose 150 ml @ 100 mls/hr 1X ONCE IV Last administered on at 21:03; Start 09/09/18 at 17:30; Stop 09/09/18 at 18:59; Status DC Albuterol/ Ipratropium (Duoneb) 3 ml RTQID NEB ; Start 09/09/18 at 20:00; Status UNV Guaifenesin (Robitussin Dm) 10 ml PRN Q6HRS PRN PO COUGH; Start 09/09/18 at 19 :00 Levofloxacin/ Dextrose (Levaquin Per Pharmacy) 1 each PRN DAILY PRN MC SEE COMMENTS; Start 09/09/18 at 19:00; Stop 09/11/18 at 09:24; Status DC Heparin Sodium (Porcine) (Heparin Sodium) 5,000 unit Q8HRS SQ Last administered on 09/11/18at 05:48; Start 09/09/18 at 22:00; Stop 09/12/18 at 11 :01; Status DC Levofloxacin/ Dextrose 50 ml @ 50 mls/hr Q24H IV ; Start 09/10/18 at 20:00; Stop 09/10/18 at 20:00; Status DC Haloperidol Lactate (Haldol Inj) 5 mg PRN Q6HRS PRN IVP AGITATION Last administered on 09/13/18at 11:46; Start 09/10/18 at 01:15 Famotidine (Pepcid Vial) 20 mg QHS IVP Last administered on 09/12/18at 20:47; Start 09/10/18 at 21:00; Stop 09/13/18 at 08:50; Status DC Methylprednisolone Sodium Succinate (SOLU-Medrol 40MG VIAL) 40 mg Q12HR IV Last administered on 09/14/18at 08:24; Start 09/10/18 at 09:00 Chlordiazepoxide (Librium) 50 mg PRN Q6HRS PRN PO ANXIETY/AGITATION, 2ND CHOICE ; Start 09/10/18 at 10:45 Lorazepam (Ativan) 1 mg PRN DAILY PRN PO ANXIETY / AGITATION, 1ST CHOIC; Start 09/10/18 at 10:45 Dexmedetomidine HCl 200 mcg/ Sodium Chloride 50 ml @ 0 mls/hr CONT PRN IV PER PROTOCOL Last administered on 09/14/18at 09:29; Start 09/10/18 at 13:30 Sodium Chloride 500 ml @ 500 mls/hr 1X PRN PRN IV SEE COMMENTS; Start at 13:30 Atropine Sulfate (ATROPINE 0.5mg SYRINGE) 0.5 mg PRN Q5MIN PRN IV SEE COMMENTS ; Start 09/10/18 at 13:30; Stop 09/12/18 at 13:15; Status DC Levofloxacin/ Dextrose 100 ml @ 100 mls/hr Q24H IV Last administered on at 20:48; Start 09/10/18 at 20:00; Stop 09/11/18 at 09:36; Status DC Enalaprilat (Vasotec Inj) 1.25 mg PRN Q4HRS PRN IVP HYPERTENSION, 1ST CHOICE Last administered on 09/13/18at 18:23; Start 09/11/18 at 02:45 Vancomycin HCl (Vanco Per Pharmacy) 1 each PRN DAILY PRN MC SEE COMMENTS Last administered on 09/13/18at 08:44; Start 09/11/18 at 09:15 Vancomycin HCl 2 gm/Sodium Chloride 500 ml @ 250 mls/hr 1X ONCE IV Last administered on 09/11/18at 10:40; Start 09/11/18 at 09:30; Stop 09/11/18 at 11 :29; Status DC Doxycycline Hyclate (Vibra-Tab) 100 mg BID PO ; Start 09/11/18 at 10:00; Stop 09/11/18 at 15:16; Status DC Cefepime HCl (Maxipime) 1 gm Q8H IVP Last administered on 09/14/18at 02:24; Start 09/11/18 at 10:00 Vancomycin HCl 1.75 gm/Sodium Chloride 500 ml @ 250 mls/hr Q12H IV Last administered on 09/12/18at 22:58; Start 09/11/18 at 23:00; Stop 09/12/18 at 23 :59; Status DC Vancomycin HCl (Vancomycin Trough Level) 1 each 1X ONCE MC Last administered on 09/12/18at 22:26; Start 09/12/18 at 22:30; Stop 09/12/18 at 22:31; Status DC Pantoprazole Sodium (PROTONIX VIAL for IV PUSH) 40 mg DAILYAC IVP Last administered on 09/14/18at 07:51; Start 09/11/18 at 12:30 Multivitamins 10 ml/Thiamine HCl 100 mg/Folic Acid 1 mg/Sodium Chloride 1,011.2 ml @ 0 mls/hr DAILY IV Last administered on 09/14/18at 09:01; Start 09/11/18 at 14:00 Insulin Human Lispro (HumaLOG) 0-7 UNITS TIDWMEALS SQ ; Start 09/11/18 at 17:00 ; Stop 09/11/18 at 17:00; Status DC Dextrose (Dextrose 50%-Water Syringe) 12.5 gm PRN Q15MIN PRN IV SEE COMMENTS; Start 09/11/18 at 13:00 Insulin Human Lispro (HumaLOG) 0-7 UNITS Q6HRS SQ Last administered on at 05:41; Start 09/11/18 at 18:00 Levothyroxine Sodium 0.025 mcg/ Sodium Chloride 5 ml @ 0 mls/hr DAILY IVP ; Start 09/11/18 at 13:30; Stop 09/11/18 at 13:52; Status DC Magnesium Sulfate 50 ml @ 25 mls/hr 1X ONCE IV Last administered on at 15:40; Start 09/11/18 at 13:30; Stop 09/11/18 at 15:29; Status DC Levothyroxine Sodium 25 mcg/ Sodium Chloride 5 ml @ 0 mls/hr DAILY IVP Last administered on 09/14/18at 09:00; Start 09/11/18 at 13:52 Levothyroxine Sodium 25 mcg/ Sodium Chloride 5 ml @ 0 mls/hr 1X ONCE IVP Last administered on 09/11/18at 14:45; Start 09/11/18 at 14:45; Stop 09/11/18 at 14 :46; Status DC Doxycycline Hyclate 100 mg/ Dextrose 100 ml @ 50 mls/hr Q12HR IV Last administered on 09/14/18at 08:21; Start 09/11/18 at 16:00 Magnesium Sulfate 50 ml @ 25 mls/hr 1X ONCE IV Last administered on at 12:56; Start 09/12/18 at 11:30; Stop 09/12/18 at 13:29; Status DC Amino Acids/ Glycerin/ Electrolytes 1,000 ml @ 50 mls/hr Q20H IV Last administered on 09/14/18at 07:51; Start 09/12/18 at 11:30 Haloperidol Lactate (Haldol Inj) 10 mg Q8HRS IVP Last administered on at 05:38; Start 09/12/18 at 14:00 Dexmedetomidine HCl 200 mcg/ Sodium Chloride 50 ml @ 0 mls/hr CONT PRN IV PER PROTOCOL; Start 09/12/18 at 13:15; Stop 09/12/18 at 14:04; Status DC Sodium Chloride 500 ml @ 500 mls/hr 1X PRN PRN IV SEE COMMENTS; Start at 13:15 Atropine Sulfate (ATROPINE 0.5mg SYRINGE) 0.5 mg PRN Q5MIN PRN IV SEE COMMENTS ; Start 09/12/18 at 13:15 Morphine Sulfate (Morphine Sulfate) 2 mg PRN Q2HR PRN IV PAIN Last administered on 09/14/18at 05:10; Start 09/12/18 at 13:15 Metoprolol Tartrate (Lopressor) 25 mg BID PO ; Start 09/12/18 at 17:00; Stop 09/12/18 at 17:00; Status DC Metoprolol Tartrate (Lopressor Vial) 5 mg Q6HRS IVP Last administered on at 05:40; Start 09/12/18 at 18:00 Vancomycin HCl 2 gm/Sodium Chloride 500 ml @ 250 mls/hr Q12H IV Last administered on 09/14/18at 01:05; Start 09/13/18 at 11:00 Vancomycin HCl (Vancomycin Trough Level) 1 each 1X ONCE MC ; Start 09/14/18 at 10:30; Stop 09/14/18 at 10:31 Nitroglycerin (Nitro-Bid Oint) 1 inch Q6HRS TP Last administered on 09/14/18at 08:20; Start 09/14/18 at 08:30 Active Scripts Active Pantoprazole Sodium 40 Mg Tablet.dr 40 Mg PO DAILYAC Lidoderm (Lidocaine) 700 Mg Adh..patch 1 Patch TD DAILY 12hours on, 12 hours off Lisinopril 2.5 Mg Tablet 2.5 Mg PO DAILY Feosol (Ferrous Sulfate) 325 Mg Tablet 325 Mg PO DAILYAC Children's Aspirin (Aspirin) 81 Mg Tab.chew 81 Mg PO DAILYWBKFT Reported Ventolin Hfa Inhaler (Albuterol Sulfate) 18 Gm Hfa.aer.ad 2 Puff INH Q4HRS Mirtazapine 45 Mg Tablet 1 Tab PO QHS Glipizide 5 Mg Tablet 1 Tab PO BID Metformin Hcl 1,000 Mg Tablet 1,000 Mg PO BIDWMEALS Lantus (Insulin Glargine,Hum.rec.anlog) 100 Unit/1 Ml Vial 50 Unit SQ HS NITROGLYCERIN SubLingual (Nitroglycerin) 0.4 Mg Tab.subl 0.4 Mg SL PRN Q5MIN PRN Fluoxetine Hcl 20 Mg Capsule 3 Cap PO DAILY Novolin R (Insulin Regular, Human) 100 Unit/1 Ml Vial 100 Unit IJ QIDACHS Vitamin D3 (Cholecalciferol (Vitamin D3)) 1,000 Unit Tablet 1 Tab PO TID Vitamin B-12 (Cyanocobalamin (Vitamin B-12)) 1,000 Mcg Tablet 1 Tab PO DAILY Gemfibrozil 600 Mg Tablet 0.5 Tab PO BID Pepcid (Famotidine) 20 Mg Tablet 10 Mg PO BID Cardizem Cd (Diltiazem Hcl) 240 Mg Cap.er.24h 1 Cap PO DAILY Robaxin (Methocarbamol) 500 Mg Tablet 1 Tab PO BID PRN Niaspan (Niacin) 500 Mg Tab.er.24h 1 Tab PO QHS Gabapentin 600 Mg Tablet 300 Mg PO QID Symbicort 80-4.5 Mcg Inhaler (Budesonide/Formoterol Fumarate) 10.2 Gm Hfa.aer.ad 2 Puff IH BID Finasteride 5 Mg Tablet 1 Tab PO DAILY Levothyroxine Sodium 50 Mcg Tablet 1 Tab PO DAILY Tamsulosin Hcl 0.4 Mg Cap.er.24h 0.4 Mg PO BID Spiriva (Tiotropium Freedom) 18 Mcg Cap.w.dev 2 Inh IH DAILY Hydrocodone-Apap 7.5-325 (Hydrocodone Bit/Acetaminophen) 1 Each Tablet 1 Tab PO Q4HRS PRN Metoprolol Tartrate 25 Mg Tablet 1 Tab PO BID Vitals/I & O Vital Sign - Last 24 Hours 09/13/18 09/13/18 09/13/18 09/13/18 10:00 11:00 12:00 12:00 Temp 98.4 98.4 Pulse 52 78 103 Resp 18 18 22 B/P (MAP) 156/67 (96) 159/85 (109) 155/73 (100) Pulse Ox 99 96 92 O2 Delivery BiPAP/CPAP BiPAP/CPAP BiPAP/CPAP Bi-pap 09/13/18 09/13/18 09/13/18 09/13/18 12:04 13:00 13:45 14:00 Pulse 105 56 80 Resp 16 28 B/P (MAP) 200/112 151/87 (108) 122/77 (92) Pulse Ox 95 94 95 O2 Delivery BiPAP/CPAP Nasal Cannula BiPAP/CPAP O2 Flow Rate 5.0 09/13/18 09/13/18 09/13/18 09/13/18 15:00 15:00 16:00 16:00 Temp 97.8 97.8 Pulse 77 78 79 Resp 18 B/P (MAP) 193/83 196/95 (128) 189/94 (125) Pulse Ox 99 97 O2 Delivery BiPAP/CPAP BiPAP/CPAP Bi-pap 09/13/18 09/13/18 09/13/18 09/13/18 16:02 17:00 17:17 18:00 Pulse 59 62 75 Resp 22 22 B/P (MAP) 183/88 (119) 183/88 186/90 (122) Pulse Ox 98 99 100 O2 Delivery BiPAP/CPAP BiPAP/CPAP BiPAP/CPAP 09/13/18 09/13/18 09/13/18 09/13/18 18:23 18:58 19:00 19:51 Pulse 65 64 71 Resp 20 B/P (MAP) 186/90 177/89 177/89 (118) Pulse Ox 99 98 O2 Delivery BiPAP/CPAP BiPAP/CPAP 09/13/18 09/13/18 09/13/18 09/13/18 20:00 20:00 21:00 22:00 Temp 98.8 98.8 Pulse 67 65 69 Resp 19 25 19 B/P (MAP) 172/89 (116) 189/93 (125) 182/94 (123) Pulse Ox 96 97 98 O2 Delivery BiPAP/CPAP Bi-pap BiPAP/CPAP BiPAP/CPAP 09/13/18 09/13/18 09/14/18 09/14/18 23:00 23:44 00:00 00:00 Temp 97.7 97.7 Pulse 66 68 Resp 17 22 B/P (MAP) 193/97 (129) 184/96 (125) Pulse Ox 98 99 100 O2 Delivery BiPAP/CPAP BiPAP/CPAP Bi-pap BiPAP/CPAP 09/14/18 09/14/18 09/14/18 09/14/18 01:00 01:05 02:00 02:10 Pulse 68 76 62 Resp 19 19 B/P (MAP) 157/81 (106) 157/87 168/96 (120) Pulse Ox 100 100 99 O2 Delivery BiPAP/CPAP BiPAP/CPAP BiPAP/CPAP 09/14/18 09/14/18 09/14/18 09/14/18 03:00 04:00 04:00 04:39 Temp 97.6 97.6 Pulse 59 70 Resp 29 16 B/P (MAP) 173/91 (118) 173/91 (118) Pulse Ox 100 99 99 O2 Delivery BiPAP/CPAP BiPAP/CPAP Bi-pap BiPAP/CPAP 09/14/18 09/14/18 09/14/18 09/14/18 05:00 05:40 06:00 07:00 Pulse 59 66 56 56 Resp 19 21 20 B/P (MAP) 196/87 (123) 179/88 187/83 (117) 173/82 (112) Pulse Ox 100 99 100 O2 Delivery BiPAP/CPAP BiPAP/CPAP BiPAP/CPAP 09/14/18 09/14/18 09/14/18 07:36 08:20 08:46 Pulse 61 B/P (MAP) 178/82 Pulse Ox 99 99 O2 Delivery BiPAP/CPAP BiPAP/CPAP Intake and Output 09/13/18 09/13/18 09/14/18 15:00 23:00 07:00 Intake Total 600 ml 1469.77 ml 2041 ml Output Total 1165 ml 1610 ml 1580 ml Balance -565 ml -140.23 ml 461 ml SAURABH DOTSON III DO Sep 14, 2018 09:45
--- NOTE | 2018-09-14 10:25 | PDOC ---
PULMONARY PROGRESS NOTES Subjective PT OFF BIPAP OFF PRECEDEX LESS AGITATED Vitals Vital Signs Date Time Temp Pulse Resp B/P (MAP) Pulse Ox O2 Delivery O2 Flow Rate FiO2 09/14/18 10:00 60 20 168/81 (110) 98 BiPAP/CPAP 09/14/18 08:00 98.4 98.4 09/14/18 08:00 5.0 General: Confused Lungs: Crackles Cardiovascular: S1, S2 Abdomen: Soft, Other (OBESE) Extremities: Other (EDEMA) Skin: Warm Labs Laboratory Tests Test 09/12/18 12:57 09/12/18 17:21 09/12/18 22:15 09/12/18 23:14 Glucose (Fingerstick) 160 mg/dL (70-99) 126 mg/dL (70-99) 161 mg/dL (70-99) Vancomycin Level Trough 8.9 mcg/mL (10.0-20.0) Vancomycin Last Dose Date 09/12/18 Vancomycin Last Dose Time 1100 Test 09/13/18 05:30 09/13/18 05:37 09/13/18 17:12 09/14/18 00:53 White Blood Count 10.0 x10^3/uL (4.0-11.0) Red Blood Count 4.51 x10^6/uL (4.30-5.70) Hemoglobin 12.6 g/dL (13.0-17.5) Hematocrit 37.5 % (39.0-53.0) Mean Corpuscular Volume 83 fL (79-100) Mean Corpuscular Hemoglobin 28 pg (25-35) Mean Corpuscular Hemoglobin Concent 34 g/dL (31-37) Red Cell Distribution Width 14.0 % (11.5-14.5) Platelet Count 216 x10^3/uL (140-400) Neutrophils (%) (Auto) 84 % (31-73) Lymphocytes (%) (Auto) 9 % (24-48) Monocytes (%) (Auto) 7 % (0-9) Eosinophils (%) (Auto) 0 % (0-3) Basophils (%) (Auto) 0 % (0-3) Neutrophils # (Auto) 8.3 x10^3uL (1.8-7.7) Lymphocytes # (Auto) 0.9 x10^3/uL (1.0-4.8) Monocytes # (Auto) 0.7 x10^3/uL (0.0-1.1) Eosinophils # (Auto) 0.0 x10^3/uL (0.0-0.7) Basophils # (Auto) 0.0 x10^3/uL (0.0-0.2) Sodium Level 134 mmol/L (136-145) Potassium Level 4.7 mmol/L (3.5-5.1) Chloride Level 99 mmol/L (98-107) Carbon Dioxide Level 26 mmol/L (21-32) Anion Gap 9 (6-14) Blood Urea Nitrogen 20 mg/dL (8-26) Creatinine 0.8 mg/dL (0.7-1.3) Estimated GFR (Cockcroft-Gault) 95.8 Glucose Level 162 mg/dL (70-99) Calcium Level 8.9 mg/dL (8.5-10.1) Magnesium Level 1.9 mg/dL (1.8-2.4) Glucose (Fingerstick) 156 mg/dL (70-99) 154 mg/dL (70-99) 149 mg/dL (70-99) Test 09/14/18 04:50 09/14/18 05:25 White Blood Count 10.3 x10^3/uL (4.0-11.0) Red Blood Count 4.59 x10^6/uL (4.30-5.70) Hemoglobin 12.9 g/dL (13.0-17.5) Hematocrit 38.2 % (39.0-53.0) Mean Corpuscular Volume 83 fL (79-100) Mean Corpuscular Hemoglobin 28 pg (25-35) Mean Corpuscular Hemoglobin Concent 34 g/dL (31-37) Red Cell Distribution Width 14.2 % (11.5-14.5) Platelet Count 231 x10^3/uL (140-400) Neutrophils (%) (Auto) 85 % (31-73) Lymphocytes (%) (Auto) 9 % (24-48) Monocytes (%) (Auto) 6 % (0-9) Eosinophils (%) (Auto) 0 % (0-3) Basophils (%) (Auto) 1 % (0-3) Neutrophils # (Auto) 8.7 x10^3uL (1.8-7.7) Lymphocytes # (Auto) 0.9 x10^3/uL (1.0-4.8) Monocytes # (Auto) 0.6 x10^3/uL (0.0-1.1) Eosinophils # (Auto) 0.0 x10^3/uL (0.0-0.7) Basophils # (Auto) 0.1 x10^3/uL (0.0-0.2) Sodium Level 134 mmol/L (136-145) Potassium Level 4.5 mmol/L (3.5-5.1) Chloride Level 98 mmol/L (98-107) Carbon Dioxide Level 26 mmol/L (21-32) Anion Gap 10 (6-14) Blood Urea Nitrogen 19 mg/dL (8-26) Creatinine 0.7 mg/dL (0.7-1.3) Estimated GFR (Cockcroft-Gault) 111.8 Glucose Level 168 mg/dL (70-99) Calcium Level 8.9 mg/dL (8.5-10.1) Glucose (Fingerstick) 157 mg/dL (70-99) Laboratory Tests Test 09/13/18 17:12 09/14/18 00:53 09/14/18 04:50 09/14/18 05:25 Glucose (Fingerstick) 154 mg/dL (70-99) 149 mg/dL (70-99) 157 mg/dL (70-99) White Blood Count 10.3 x10^3/uL (4.0-11.0) Red Blood Count 4.59 x10^6/uL (4.30-5.70) Hemoglobin 12.9 g/dL (13.0-17.5) Hematocrit 38.2 % (39.0-53.0) Mean Corpuscular Volume 83 fL (79-100) Mean Corpuscular Hemoglobin 28 pg (25-35) Mean Corpuscular Hemoglobin Concent 34 g/dL (31-37) Red Cell Distribution Width 14.2 % (11.5-14.5) Platelet Count 231 x10^3/uL (140-400) Neutrophils (%) (Auto) 85 % (31-73) Lymphocytes (%) (Auto) 9 % (24-48) Monocytes (%) (Auto) 6 % (0-9) Eosinophils (%) (Auto) 0 % (0-3) Basophils (%) (Auto) 1 % (0-3) Neutrophils # (Auto) 8.7 x10^3uL (1.8-7.7) Lymphocytes # (Auto) 0.9 x10^3/uL (1.0-4.8) Monocytes # (Auto) 0.6 x10^3/uL (0.0-1.1) Eosinophils # (Auto) 0.0 x10^3/uL (0.0-0.7) Basophils # (Auto) 0.1 x10^3/uL (0.0-0.2) Sodium Level 134 mmol/L (136-145) Potassium Level 4.5 mmol/L (3.5-5.1) Chloride Level 98 mmol/L (98-107) Carbon Dioxide Level 26 mmol/L (21-32) Anion Gap 10 (6-14) Blood Urea Nitrogen 19 mg/dL (8-26) Creatinine 0.7 mg/dL (0.7-1.3) Estimated GFR (Cockcroft-Gault) 111.8 Glucose Level 168 mg/dL (70-99) Calcium Level 8.9 mg/dL (8.5-10.1) Medications Active Scripts Medications Dose Route/Sig Max Daily Dose Days Date Category Dose Instructions Ventolin Hfa Inhaler (Albuterol Sulfate) 18 Gm Hfa.aer.ad 2 Puff INH Q4HRS 09/11/18 Reported Mirtazapine 45 Mg Tablet 1 Tab PO QHS 09/11/18 Reported Glipizide 5 Mg Tablet 1 Tab PO BID 09/11/18 Reported Metformin Hcl 1,000 Mg Tablet 1,000 Mg PO BIDWMEALS 09/11/18 Reported Lantus (Insulin Glargine,Hum.rec.anlog) 100 Unit/1 Ml Vial 50 Unit SQ HS 09/11/18 Reported NITROGLYCERIN SubLingual (Nitroglycerin) 0.4 Mg Tab.subl 0.4 Mg SL PRN Q5MIN PRN 09/11/18 Reported Fluoxetine Hcl 20 Mg Capsule 3 Cap PO DAILY 09/11/18 Reported Novolin R (Insulin Regular, Human) 100 Unit/1 Ml Vial 100 Unit IJ QIDACHS 09/11/18 Reported Vitamin D3 (Cholecalciferol (Vitamin D3)) 1,000 Unit Tablet 1 Tab PO TID 09/11/18 Reported Vitamin B-12 (Cyanocobalamin (Vitamin B-12)) 1,000 Mcg Tablet 1 Tab PO DAILY 09/11/18 Reported Gemfibrozil 600 Mg Tablet 0.5 Tab PO BID 09/11/18 Reported Pepcid (Famotidine) 20 Mg Tablet 10 Mg PO BID 09/11/18 Reported Cardizem Cd (Diltiazem Hcl) 240 Mg Cap.er.24h 1 Cap PO DAILY 09/11/18 Reported Robaxin (Methocarbamol) 500 Mg Tablet 1 Tab PO BID PRN 09/11/18 Reported Niaspan (Niacin) 500 Mg Tab.er.24h 1 Tab PO QHS 09/11/18 Reported Gabapentin 600 Mg Tablet 300 Mg PO QID 09/11/18 Reported Pantoprazole Sodium 40 Mg Tablet.dr 40 Mg PO DAILYAC 07/16/16 Rx Lidoderm (Lidocaine) 700 Mg Adh..patch 1 Patch TD DAILY 07/16/16 Rx 12hours on, 12 hours off Lisinopril 2.5 Mg Tablet 2.5 Mg PO DAILY 07/16/16 Rx Feosol (Ferrous Sulfate) 325 Mg Tablet 325 Mg PO DAILYAC 07/16/16 Rx Children's Aspirin (Aspirin) 81 Mg Tab.chew 81 Mg PO DAILYWBKFT 07/16/16 Rx Symbicort 80-4.5 Mcg Inhaler (Budesonide/Formoterol Fumarate) 10.2 Gm Hfa.aer.ad 2 Puff IH BID 07/09/16 Reported Finasteride 5 Mg Tablet 1 Tab PO DAILY 07/09/16 Reported Levothyroxine Sodium 50 Mcg Tablet 1 Tab PO DAILY 07/09/16 Reported Tamsulosin Hcl 0.4 Mg Cap.er.24h 0.4 Mg PO BID 07/09/16 Reported Spiriva (Tiotropium [place]) 18 Mcg Cap.w.dev 2 Inh IH DAILY 07/09/16 Reported Hydrocodone-Apap 7.5-325 (Hydrocodone Bit/Acetaminophen) 1 Each Tablet 1 Tab PO Q4HRS PRN 07/09/16 Reported Metoprolol Tartrate 25 Mg Tablet 1 Tab PO BID 07/09/16 Reported Comments IMPRESSION: Mild patchy opacities in the right lung base may be secondary to subsegmental atelectasis or pneumonia. Findings of COPD. Impression . IMPRESSION: 1. Acute hypoxemic respiratory failure, multifactorial in etiolog 2. Abnormal chest x-ray/PNEUMONIA 3. Acute exacerbation of chronic obstructive pulmonary disease. 4. Acute bronchitis versus pneumonia. 5. METABOLIC/TOXIC Encephalopathy POA 6. Acute kidney injury. 7. Obstructive sleep apnea-hypopnea syndrome. 8. CAD S/P CABG 9. Hypertension. 10. BACTEREMIA/SEPSIS PER ID Impression: Right internal jugular catheter terminates at the expected level of the superior aspect of the superior vena cava. No pneumothorax. Pulmonary vasculature congestion. Plan . MAINTAIN OFF PRECEDEX ON HALDOL ANTIBX PER ID D/W DR MOON CONTINUE BIPAP PRN DIFFICULT SITUATION WITH ENCEPHALOPATHY NEED TO FIND A BALANCE WITH NARCOTIS/SEDATION STEROIDS DECREASE D/W RT CCT 30 MIN ARLYN FENTON MD Sep 14, 2018 10:25
[2018-09-14] MEDS: ASPIRIN 300 MG SUPP.RECT PR SCH (11:00)
[2018-09-14 11:03] LABS: VANC TR 18.6 mcg/mL (10.0-20.0)
[2018-09-14] MEDS: VANCOMYCIN PER PHARMACY MC PRN (12:16)
[2018-09-14] MEDS: MORPHINE SULFATE 4 MG/ML VIAL. IV PRN ×3 (13:08→20:38)
--- NOTE | 2018-09-14 16:45 | PDOC ---
PROGRESS NOTES Assessment Assessment Toxic encephalopathy. Narcotics over dose. Hypertensive emergency, BP 244/127 mmHg. Hypertensive encephalopathy. Alcohol intoxication. Respiratory failure. Cardiac arrhythmia. CAD, s/p CABG. COPD. HTN,. HLD. DM. AKD. SABRINA on CPAP. Alcohol use/abuse. Obesity. RECOMMENDATIONS/PLAN: Continue life support in ICU. Alcohol detoxication treatment. Avoid Haldol as possible. ASA 300 mg rectal daily. Brain MRI w/o contrast was failed to perform on him on 09/14/18, will try again. EEG was not able to perform on him tried 2 times due to not stable. BP control. Continue Lipitor HS. Treat medical diseases. Coumadin not able to be administrated. Discussed with his in all detail at bedside in ICU on 09/13/18. HISTORY OF THE PRESENT ILLNESS: 67-y-old male patient with above medical diseases and chronic back pain obtained narcotics from [place] recently. He was found MS changes to be brought to the ER of [facility]. His family found that about 14 narcotic pills were missing and patient did drink alcohol during the time when he had narcotics. Past Medical History Cardiovascular: CAD, HTN, Hyperlipidemia, Other Pulmonary: COPD CENTRAL NERVOUS SYSTEM: Other GI: GERD, Other Heme/Onc: No pertinent hx Hepatobiliary: No pertinent hx Psych: Anxiety, Other Musculoskeletal: Osteoarthritis, Other Rheumatologic: No pertinent hx Infectious disease: No pertinent hx Renal/: No pertinent hx Endocrine: Diabetes Past Surgical History CABG Family History Heart Disease Allergies Coded Allergies: Penicillins (Verified Allergy, Intermediate, PEELING HANDS; TOLERATES AMOXICILLIN, 07/14/16) celecoxib (Verified Allergy, Intermediate, "i dont know", 07/09/16) gabapentin (Verified Allergy, Intermediate, "i dont know", 07/09/16) pregabalin (Verified Allergy, Intermediate, "i dont know", 07/09/16) tadalafil (Verified Allergy, Intermediate, "i dont know", 07/09/16) terazosin (Verified Allergy, Intermediate, "i dont know", 07/09/16) varenicline (Verified Allergy, Intermediate, "i dont know" , 07/09/16) MEDICATIONS: Refer to [facility] SOCIAL HISTORY: Lives with his at home. Denies illicit drug use. He drinks alcohol heavily for many years, but stopped for 2 weeks then resumed drinking before thsi admission. REVIEW OF SYSTEMS: Constitutional: Obesity. Head: No recent traumatic brain or head injury. Skin: No edema, or rash. Ear: No infection. Eyes: No vision loss or color blindness. Nose: No bleeding or purulent discharges. Hearing: Hearing decrease. Neck: No injury. Cardiac: CAD, s/p CABG, HTN, HLD. Pulmonary: COPD. GI: No GI ulcer, GI bleeding. Urinary/genital: UTI. Endocrinologic: Diabetes Mellitus, obesity. Skeletomuscular: Chronic back pain. Neurological: see HP. Psychiatric: Alcohol use/abuse. Otherwise, not [id number] review of systems. PHYSICAL EXAMINATION: General appearance is in subacute distress. HEENT: Normocephalic and nontraumatic. Eyes, nose, ears, and throat are unremarkable. Neck is supple. No lymphadenopathy. No crepitus. Cardiovascular: S1, S2. PVCs noted. Pulmonary: Decreased to auscultation bilaterally. Abdomen: Bowel sounds are positive. Abdomen is soft, nontender, and nondistended. Extremities: No rash, lesions, or edema. No restriction of range of motion NEUROLOGICAL EXAMINATION: In confusional state. Not oriented to time, place and person, but able to open eyes and understand 1 to 2 commands. PERRL. EOMI not elicited due to not follow commands. CN: Left facial nasofobia seemed shallow. Muscle tone: within normal. Muscle strength: Moves all extremities to stimuli. DTR: 1- Plantar reflex: Neutral response bilaterally Gait: Unable to walk. Sensory exam: Withdrawal response noted to stimuli.. Not able to access cerebellar signs in this mentation. F-T-N test not performed due to not follow commands. Objective Objective Vital Signs Date Time Temp Pulse Resp B/P (MAP) Pulse Ox O2 Delivery O2 Flow Rate FiO2 09/14/18 16:34 26 97 Nasal Cannula 4.0 09/14/18 16:00 97.5 78 149/77 (101) 97.5 Intake and Output 09/14/18 07:00 Intake Total 4110.77 ml Output Total 4355 ml Balance -244.23 ml IV Total 4110.77 ml Output Urine Total 4355 ml Vitals Signs Vitals VS - Last 72 Hours, by Label Date Time Temp Pulse Resp B/P (MAP) Pulse Ox O2 Delivery O2 Flow Rate FiO2 09/14/18 16:34 26 97 Nasal Cannula 4.0 09/14/18 16:00 5.0 09/14/18 16:00 97.5 78 16 149/77 (101) 97 Nasal Cannula 4.0 97.5 09/14/18 16:00 Nasal Cannula 4.0 09/14/18 15:34 98 Nasal Cannula 5.0 09/14/18 15:00 73 28 150/81 (104) 97 Nasal Cannula 4.0 09/14/18 14:00 78 26 140/81 (100) 99 Nasal Cannula 5.0 09/14/18 13:44 26 98 Nasal Cannula 5.0 09/14/18 13:24 84 154/80 09/14/18 13:23 97 Nasal Cannula 5.0 09/14/18 13:08 98 Nasal Cannula 5.0 09/14/18 13:00 88 24 154/80 (104) 98 Nasal Cannula 5.0 09/14/18 12:00 5.0 09/14/18 12:00 Nasal Cannula 5.0 09/14/18 12:00 98.2 74 20 170/80 (110) 98 Nasal Cannula 5.0 98.2 09/14/18 11:44 76 158/78 09/14/18 11:00 64 20 158/78 (104) 100 BiPAP/CPAP 09/14/18 10:46 99 BiPAP/CPAP 09/14/18 10:00 60 20 168/81 (110) 98 BiPAP/CPAP 09/14/18 09:00 56 20 165/84 (111) 99 BiPAP/CPAP 09/14/18 08:46 99 BiPAP/CPAP 09/14/18 08:20 61 178/82 09/14/18 08:00 98.4 58 20 178/82 (114) 100 BiPAP/CPAP 98.4 09/14/18 08:00 Bi-pap 09/14/18 08:00 5.0 09/14/18 07:36 99 BiPAP/CPAP 09/14/18 07:00 56 20 173/82 (112) 100 BiPAP/CPAP 09/14/18 06:00 56 21 187/83 (117) 99 BiPAP/CPAP 09/14/18 05:40 66 179/88 09/14/18 05:00 59 19 196/87 (123) 100 BiPAP/CPAP 09/14/18 04:39 99 BiPAP/CPAP 09/14/18 04:00 Bi-pap 09/14/18 04:00 97.6 70 16 173/91 (118) 99 BiPAP/CPAP 97.6 09/14/18 03:00 59 29 173/91 (118) 100 BiPAP/CPAP 09/14/18 02:10 99 BiPAP/CPAP 09/14/18 02:00 62 19 168/96 (120) 100 BiPAP/CPAP 09/14/18 01:05 76 157/87 09/14/18 01:00 68 19 157/81 (106) 100 BiPAP/CPAP 09/14/18 00:00 97.7 68 22 184/96 (125) 100 BiPAP/CPAP 97.7 09/14/18 00:00 Bi-pap 09/13/18 23:44 99 BiPAP/CPAP 09/13/18 23:00 66 17 193/97 (129) 98 BiPAP/CPAP 09/13/18 22:00 69 19 182/94 (123) 98 BiPAP/CPAP 09/13/18 21:00 65 25 189/93 (125) 97 BiPAP/CPAP 09/13/18 20:00 Bi-pap 09/13/18 20:00 98.8 67 19 172/89 (116) 96 BiPAP/CPAP 98.8 09/13/18 19:51 98 BiPAP/CPAP 09/13/18 19:00 71 20 177/89 (118) 99 BiPAP/CPAP 09/13/18 18:58 64 177/89 18 18:23 65 186/90 09/13/18 18:00 75 22 186/90 (122) 100 BiPAP/CPAP 09/13/18 17:17 62 183/88 09/13/18 17:00 59 22 183/88 (119) 99 BiPAP/CPAP 09/13/18 16:02 98 BiPAP/CPAP 09/13/18 16:00 Bi-pap 09/13/18 16:00 97.8 79 18 189/94 (125) 97 BiPAP/CPAP 97.8 09/13/18 15:00 78 22 196/95 (128) 99 BiPAP/CPAP 09/13/18 15:00 77 193/83 09/13/18 14:00 80 28 122/77 (92) 95 BiPAP/CPAP 09/13/18 13:45 94 Nasal Cannula 5.0 09/13/18 13:00 56 16 151/87 (108) 95 BiPAP/CPAP 09/13/18 12:04 105 200/112 09/13/18 12:00 Bi-pap 09/13/18 12:00 98.4 103 22 155/73 (100) 92 BiPAP/CPAP 98.4 09/13/18 11:00 78 18 159/85 (109) 96 BiPAP/CPAP 09/13/18 10:00 52 18 156/67 (96) 99 BiPAP/CPAP 09/13/18 09:00 58 16 143/65 (91) 98 BiPAP/CPAP 09/13/18 08:00 68 20 147/64 (91) 99 BiPAP/CPAP 09/13/18 08:00 Bi-pap 09/13/18 08:00 99 BiPAP/CPAP 09/13/18 07:00 97.7 65 22 155/64 (94) 99 BiPAP/CPAP 97.7 Laboratory Laboratory Laboratory Tests Test 09/13/18 17:12 18 00:53 09/14/18 04:50 09/14/18 05:25 Glucose (Fingerstick) 154 mg/dL (70-99) 149 mg/dL (70-99) 157 mg/dL (70-99) White Blood Count 10.3 x10^3/uL (4.0-11.0) Red Blood Count 4.59 x10^6/uL (4.30-5.70) Hemoglobin 12.9 g/dL (13.0-17.5) Hematocrit 38.2 % (39.0-53.0) Mean Corpuscular Volume 83 fL (79-100) Mean Corpuscular Hemoglobin 28 pg (25-35) Mean Corpuscular Hemoglobin Concent 34 g/dL (31-37) Red Cell Distribution Width 14.2 % (11.5-14.5) Platelet Count 231 x10^3/uL (140-400) Neutrophils (%) (Auto) 85 % (31-73) Lymphocytes (%) (Auto) 9 % (24-48) Monocytes (%) (Auto) 6 % (0-9) Eosinophils (%) (Auto) 0 % (0-3) Basophils (%) (Auto) 1 % (0-3) Neutrophils # (Auto) 8.7 x10^3uL (1.8-7.7) Lymphocytes # (Auto) 0.9 x10^3/uL (1.0-4.8) Monocytes # (Auto) 0.6 x10^3/uL (0.0-1.1) Eosinophils # (Auto) 0.0 x10^3/uL (0.0-0.7) Basophils # (Auto) 0.1 x10^3/uL (0.0-0.2) Sodium Level 134 mmol/L (136-145) Potassium Level 4.5 mmol/L (3.5-5.1) Chloride Level 98 mmol/L (98-107) Carbon Dioxide Level 26 mmol/L (21-32) Anion Gap 10 (6-14) Blood Urea Nitrogen 19 mg/dL (8-26) Creatinine 0.7 mg/dL (0.7-1.3) Estimated GFR (Cockcroft-Gault) 111.8 Glucose Level 168 mg/dL (70-99) Calcium Level 8.9 mg/dL (8.5-10.1) Test 09/14/18 10:25 09/14/18 11:26 Vancomycin Level Trough 18.6 mcg/mL (10.0-20.0) Vancomycin Last Dose Date 09/13/2018 Vancomycin Last Dose Time 2300 Glucose (Fingerstick) 163 mg/dL (70-99) Microbiology 09/09/18 Blood Culture - Preliminary, Resulted NO GROWTH AFTER 4 DAYS Medication Medications Current Medications Aspirin (Aspirin) 300 mg DAILY IA Last administered on 09/14/18at 11:00; Start 09/14/18 at 11:00 Methylprednisolone Sodium Succinate (SOLU-Medrol 40MG VIAL) 40 mg DAILY IV ; Start 09/15/18 at 09:00 Morphine Sulfate (Morphine Sulfate) 2 mg PRN Q2HR PRN IV PAIN Last administered on 09/14/18at 16:34; Start 09/14/18 at 13:00 Nitroglycerin (Nitro-Bid Oint) 1 inch Q6HRS TP Last administered on 09/14/18at 13:24; Start 09/14/18 at 08:30 Vancomycin HCl (Vancomycin Trough Level) 1 each 1X ONCE MC Last administered on 09/14/18at 10:30; Start 09/14/18 at 10:30; Stop 09/14/18 at 10:31; Status DC Comment Review of Relevant I have reviewed the following items barby (where applicable) has been applied. ADI MOON MD Sep 14, 2018 16:45
[2018-09-14] MEDS: LABETALOL 20 MG/4 ML DISP.SYRIN. IVP PRN (20:07)
[2018-09-14] MEDS: PATCH REMOVAL. MC SCH (21:00)
[2018-09-15] VITALS (24 sets, daily range): BP systolic 104–176; BP diastolic 55–108
[2018-09-15] MEDS: CEFEPIME HCL IV Push 1 GM VIAL. IVP SCH ×3 (02:29→17:33)
[2018-09-15] MEDS: DEXMEDETOMIDINE 200 MCG in IV NORMAL SALINE 50ML 48 ML IV PRN ×4 (02:30→09:03)
[2018-09-15 05:26] LABS: BASO # 0.1 x10^3/uL (0.0-0.2); BASO % 1 % (0-3); EOS # 0.1 x10^3/uL (0.0-0.7); EOS % 1 % (0-3); HEMATOCRIT 35.9 % (39.0-53.0); HEMOGLOBIN 12.3 g/dL (13.0-17.5); LYMPH # 1.9 x10^3/uL (1.0-4.8); LYMPH % 23 % (24-48); MEAN CORPUSCULAR HEMOGLOBIN 28 pg (25-35); MEAN CORPUSCULAR HGB CONC 34 g/dL (31-37); MEAN CORPUSCULAR VOLUME 83 fL (79-100); MONO # 0.6 x10^3/uL (0.0-1.1); MONO % 7 % (0-9); NEUT # 5.6 x10^3uL (1.8-7.7); NEUT % 68 % (31-73); PLATELET COUNT 225 x10^3/uL (140-400); RED BLOOD COUNT 4.31 x10^6/uL (4.30-5.70); RED CELL DISTRIBUTION WIDTH 14.2 % (11.5-14.5); WHITE BLOOD COUNT 8.3 x10^3/uL (4.0-11.0)
[2018-09-15] MEDS: INSULIN LISPRO 300 UNITS/3 ML INSULN.PEN. SQ SCH ×3 (05:40→17:32)
[2018-09-15] MEDS: HALOPERIDOL LACTATE 5 MG/ML VIAL. IVP SCH ×3 (05:48→21:32)
[2018-09-15] MEDS: NITROGLYCERIN OINT 1 GM PACKET. TP SCH ×3 (05:53→17:33)
[2018-09-15 06:05] LABS: CALCIUM 8.8 mg/dL (8.5-10.1); CREATININE 0.7 mg/dL (0.7-1.3); GFR 111.8; POTASSIUM 3.9 mmol/L (3.5-5.1)
[2018-09-15] MEDS: IPRATRPIUM/ALBUTEROL 0.5/2.5MG 3 ML NEBU. NEB SCH ×4 (07:10→19:42)
[2018-09-15] MEDS: PANTOPRAZOLE IV PUSH 40 MG VIAL. IVP SCH (08:37)
[2018-09-15] MEDS: DOXYCYCLINE HYCLATE 100 MG in IV DEXTROSE 5% 100ML 100 ML IV SCH ×2 (08:37→21:32)
[2018-09-15] MEDS: methylPREDNISolone SOD SUCC PF 40 MG/ML VIAL. IV SCH (08:38)
--- NOTE | 2018-09-15 08:51 | PDOC ---
PULMONARY PROGRESS NOTES Subjective PT OFF BIPAP MORE AWAKE AND LESS CONFUSED Vitals Vital Signs Date Time Temp Pulse Resp B/P (MAP) Pulse Ox O2 Delivery O2 Flow Rate FiO2 09/15/18 07:11 99 BiPAP/CPAP 09/15/18 06:00 52 19 159/87 (111) 09/15/18 05:00 97.8 97.8 09/14/18 19:00 4.0 General: Confused Lungs: Crackles Cardiovascular: S1, S2 Abdomen: Soft, Other (OBESE) Extremities: Other (EDEMA) Skin: Warm Labs Laboratory Tests Test 09/13/18 17:12 09/14/18 00:53 09/14/18 04:50 09/14/18 05:25 Glucose (Fingerstick) 154 mg/dL (70-99) 149 mg/dL (70-99) 157 mg/dL (70-99) White Blood Count 10.3 x10^3/uL (4.0-11.0) Red Blood Count 4.59 x10^6/uL (4.30-5.70) Hemoglobin 12.9 g/dL (13.0-17.5) Hematocrit 38.2 % (39.0-53.0) Mean Corpuscular Volume 83 fL (79-100) Mean Corpuscular Hemoglobin 28 pg (25-35) Mean Corpuscular Hemoglobin Concent 34 g/dL (31-37) Red Cell Distribution Width 14.2 % (11.5-14.5) Platelet Count 231 x10^3/uL (140-400) Neutrophils (%) (Auto) 85 % (31-73) Lymphocytes (%) (Auto) 9 % (24-48) Monocytes (%) (Auto) 6 % (0-9) Eosinophils (%) (Auto) 0 % (0-3) Basophils (%) (Auto) 1 % (0-3) Neutrophils # (Auto) 8.7 x10^3uL (1.8-7.7) Lymphocytes # (Auto) 0.9 x10^3/uL (1.0-4.8) Monocytes # (Auto) 0.6 x10^3/uL (0.0-1.1) Eosinophils # (Auto) 0.0 x10^3/uL (0.0-0.7) Basophils # (Auto) 0.1 x10^3/uL (0.0-0.2) Sodium Level 134 mmol/L (136-145) Potassium Level 4.5 mmol/L (3.5-5.1) Chloride Level 98 mmol/L (98-107) Carbon Dioxide Level 26 mmol/L (21-32) Anion Gap 10 (6-14) Blood Urea Nitrogen 19 mg/dL (8-26) Creatinine 0.7 mg/dL (0.7-1.3) Estimated GFR (Cockcroft-Gault) 111.8 Glucose Level 168 mg/dL (70-99) Calcium Level 8.9 mg/dL (8.5-10.1) Test 09/14/18 10:25 09/14/18 11:26 09/14/18 17:32 09/14/18 23:38 Vancomycin Level Trough 18.6 mcg/mL (10.0-20.0) Vancomycin Last Dose Date 09/13/2018 Vancomycin Last Dose Time 2300 Glucose (Fingerstick) 163 mg/dL (70-99) 142 mg/dL (70-99) 143 mg/dL (70-99) Test 09/15/18 05:00 09/15/18 05:10 White Blood Count 8.3 x10^3/uL (4.0-11.0) Red Blood Count 4.31 x10^6/uL (4.30-5.70) Hemoglobin 12.3 g/dL (13.0-17.5) Hematocrit 35.9 % (39.0-53.0) Mean Corpuscular Volume 83 fL (79-100) Mean Corpuscular Hemoglobin 28 pg (25-35) Mean Corpuscular Hemoglobin Concent 34 g/dL (31-37) Red Cell Distribution Width 14.2 % (11.5-14.5) Platelet Count 225 x10^3/uL (140-400) Neutrophils (%) (Auto) 68 % (31-73) Lymphocytes (%) (Auto) 23 % (24-48) Monocytes (%) (Auto) 7 % (0-9) Eosinophils (%) (Auto) 1 % (0-3) Basophils (%) (Auto) 1 % (0-3) Neutrophils # (Auto) 5.6 x10^3uL (1.8-7.7) Lymphocytes # (Auto) 1.9 x10^3/uL (1.0-4.8) Monocytes # (Auto) 0.6 x10^3/uL (0.0-1.1) Eosinophils # (Auto) 0.1 x10^3/uL (0.0-0.7) Basophils # (Auto) 0.1 x10^3/uL (0.0-0.2) Sodium Level 136 mmol/L (136-145) Potassium Level 3.9 mmol/L (3.5-5.1) Chloride Level 102 mmol/L (98-107) Carbon Dioxide Level 27 mmol/L (21-32) Anion Gap 7 (6-14) Blood Urea Nitrogen 19 mg/dL (8-26) Creatinine 0.7 mg/dL (0.7-1.3) Estimated GFR (Cockcroft-Gault) 111.8 Glucose Level 139 mg/dL (70-99) Calcium Level 8.8 mg/dL (8.5-10.1) Glucose (Fingerstick) 127 mg/dL (70-99) Laboratory Tests Test 09/14/18 10:25 09/14/18 11:26 09/14/18 17:32 09/14/18 23:38 Vancomycin Level Trough 18.6 mcg/mL (10.0-20.0) Vancomycin Last Dose Date 09/13/2018 Vancomycin Last Dose Time 2300 Glucose (Fingerstick) 163 mg/dL (70-99) 142 mg/dL (70-99) 143 mg/dL (70-99) Test 09/15/18 05:00 09/15/18 05:10 White Blood Count 8.3 x10^3/uL (4.0-11.0) Red Blood Count 4.31 x10^6/uL (4.30-5.70) Hemoglobin 12.3 g/dL (13.0-17.5) Hematocrit 35.9 % (39.0-53.0) Mean Corpuscular Volume 83 fL (79-100) Mean Corpuscular Hemoglobin 28 pg (25-35) Mean Corpuscular Hemoglobin Concent 34 g/dL (31-37) Red Cell Distribution Width 14.2 % (11.5-14.5) Platelet Count 225 x10^3/uL (140-400) Neutrophils (%) (Auto) 68 % (31-73) Lymphocytes (%) (Auto) 23 % (24-48) Monocytes (%) (Auto) 7 % (0-9) Eosinophils (%) (Auto) 1 % (0-3) Basophils (%) (Auto) 1 % (0-3) Neutrophils # (Auto) 5.6 x10^3uL (1.8-7.7) Lymphocytes # (Auto) 1.9 x10^3/uL (1.0-4.8) Monocytes # (Auto) 0.6 x10^3/uL (0.0-1.1) Eosinophils # (Auto) 0.1 x10^3/uL (0.0-0.7) Basophils # (Auto) 0.1 x10^3/uL (0.0-0.2) Sodium Level 136 mmol/L (136-145) Potassium Level 3.9 mmol/L (3.5-5.1) Chloride Level 102 mmol/L (98-107) Carbon Dioxide Level 27 mmol/L (21-32) Anion Gap 7 (6-14) Blood Urea Nitrogen 19 mg/dL (8-26) Creatinine 0.7 mg/dL (0.7-1.3) Estimated GFR (Cockcroft-Gault) 111.8 Glucose Level 139 mg/dL (70-99) Calcium Level 8.8 mg/dL (8.5-10.1) Glucose (Fingerstick) 127 mg/dL (70-99) Medications Active Scripts Medications Dose Route/Sig Max Daily Dose Days Date Category Dose Instructions Ventolin Hfa Inhaler (Albuterol Sulfate) 18 Gm Hfa.aer.ad 2 Puff INH Q4HRS 09/11/18 Reported Mirtazapine 45 Mg Tablet 1 Tab PO QHS 09/11/18 Reported Glipizide 5 Mg Tablet 1 Tab PO BID 09/11/18 Reported Metformin Hcl 1,000 Mg Tablet 1,000 Mg PO BIDWMEALS 09/11/18 Reported Lantus (Insulin Glargine,Hum.rec.anlog) 100 Unit/1 Ml Vial 50 Unit SQ HS 09/11/18 Reported NITROGLYCERIN SubLingual (Nitroglycerin) 0.4 Mg Tab.subl 0.4 Mg SL PRN Q5MIN PRN 09/11/18 Reported Fluoxetine Hcl 20 Mg Capsule 3 Cap PO DAILY 09/11/18 Reported Novolin R (Insulin Regular, Human) 100 Unit/1 Ml Vial 100 Unit IJ QIDACHS 09/11/18 Reported Vitamin D3 (Cholecalciferol (Vitamin D3)) 1,000 Unit Tablet 1 Tab PO TID 09/11/18 Reported Vitamin B-12 (Cyanocobalamin (Vitamin B-12)) 1,000 Mcg Tablet 1 Tab PO DAILY 09/11/18 Reported Gemfibrozil 600 Mg Tablet 0.5 Tab PO BID 09/11/18 Reported Pepcid (Famotidine) 20 Mg Tablet 10 Mg PO BID 09/11/18 Reported Cardizem Cd (Diltiazem Hcl) 240 Mg Cap.er.24h 1 Cap PO DAILY 09/11/18 Reported Robaxin (Methocarbamol) 500 Mg Tablet 1 Tab PO BID PRN 09/11/18 Reported Niaspan (Niacin) 500 Mg Tab.er.24h 1 Tab PO QHS 09/11/18 Reported Gabapentin 600 Mg Tablet 300 Mg PO QID 09/11/18 Reported Pantoprazole Sodium 40 Mg Tablet.dr 40 Mg PO DAILYAC 07/16/16 Rx Lidoderm (Lidocaine) 700 Mg Adh..patch 1 Patch TD DAILY 07/16/16 Rx 12hours on, 12 hours off Lisinopril 2.5 Mg Tablet 2.5 Mg PO DAILY 07/16/16 Rx Feosol (Ferrous Sulfate) 325 Mg Tablet 325 Mg PO DAILYAC 07/16/16 Rx Children's Aspirin (Aspirin) 81 Mg Tab.chew 81 Mg PO DAILYWBKFT 07/16/16 Rx Symbicort 80-4.5 Mcg Inhaler (Budesonide/Formoterol Fumarate) 10.2 Gm Hfa.aer.ad 2 Puff IH BID 07/09/16 Reported Finasteride 5 Mg Tablet 1 Tab PO DAILY 07/09/16 Reported Levothyroxine Sodium 50 Mcg Tablet 1 Tab PO DAILY 07/09/16 Reported Tamsulosin Hcl 0.4 Mg Cap.er.24h 0.4 Mg PO BID 07/09/16 Reported Spiriva (Tiotropium Brock) 18 Mcg Cap.w.dev 2 Inh IH DAILY 07/09/16 Reported Hydrocodone-Apap 7.5-325 (Hydrocodone Bit/Acetaminophen) 1 Each Tablet 1 Tab PO Q4HRS PRN 07/09/16 Reported Metoprolol Tartrate 25 Mg Tablet 1 Tab PO BID 07/09/16 Reported Comments IMPRESSION: Mild patchy opacities in the right lung base may be secondary to subsegmental atelectasis or pneumonia. Findings of COPD. Impression . IMPRESSION: 1. Acute hypoxemic respiratory failure, multifactorial in etiolog 2. Abnormal chest x-ray/PNEUMONIA 3. Acute exacerbation of chronic obstructive pulmonary disease. 4. Acute bronchitis versus pneumonia. 5. METABOLIC/TOXIC Encephalopathy POA 6. Acute kidney injury. 7. Obstructive sleep apnea-hypopnea syndrome. 8. CAD S/P CABG 9. Hypertension. 10. BACTEREMIA/SEPSIS PER ID Impression: Right internal jugular catheter terminates at the expected level of the superior aspect of the superior vena cava. No pneumothorax. Pulmonary vasculature congestion. Plan . OFF PRECEDEX BETTER TODAY SPOKE WITH PT AND DAUGHTER ON HALDOL ANTIBX PER ID CONTINUE BIPAP QHS STEROIDS DECREASE D/W RT ARLYN FENTON MD Sep 15, 2018 08:51
[2018-09-15] MEDS: MULTIVIT INFUSN,ADULT 4,VIT K 10 ML, THIAMINE INJ 100 MG, FOLIC ACID INJ 1 MG in IV NOR... IV SCH (09:30)
[2018-09-15] MEDS: ASPIRIN 300 MG SUPP.RECT PR SCH (10:33)
[2018-09-15] MEDS: METOPROLOL TARTRATE 5 MG/5 ML VIAL. IVP SCH ×3 (10:33→17:34)
[2018-09-15] MEDS: LIDOCAINE (700MG/PATCH) PATCH. TD SCH (10:33)
--- NOTE | 2018-09-15 10:48 | PDOC ---
Infectious Disease Note Subjective Subjective On bipap and agitated at times,, sedated ROS ROS no n/v/d/fever Vital Sign Vital Signs Vital Signs Date Time Temp Pulse Resp B/P (MAP) Pulse Ox O2 Delivery O2 Flow Rate FiO2 09/15/18 10:33 54 146/57 09/15/18 10:00 20 95 BiPAP/CPAP 09/15/18 08:00 98.0 98.0 09/14/18 19:00 4.0 Physical Exam PHYSICAL EXAM GEN: appears comfortable currently - on Bipap HEENT: Pupils are equal and reactive. He has normal conjunctivae.but some suffusion NECK: Supple - he moved from side to side. No gross JVD. LUNGS: Decreased in the bases. HEART: S1, S2, mild tachycardia. ABDOMEN: Obese, soft with decreased bowel sounds. GENITOURINARY: Mary is in place. He has clearing urine. EXTREMITIES: Without clubbing, cyanosis with trace edema. MITTS SKIN: Warm to touch without generalized signs of rash. NEUROLOGIC: He is confused. RIJ - clean. Labs Lab Laboratory Tests Test 09/14/18 11:26 09/14/18 17:32 09/14/18 23:38 09/15/18 05:00 Glucose (Fingerstick) 163 mg/dL (70-99) 142 mg/dL (70-99) 143 mg/dL (70-99) White Blood Count 8.3 x10^3/uL (4.0-11.0) Red Blood Count 4.31 x10^6/uL (4.30-5.70) Hemoglobin 12.3 g/dL (13.0-17.5) Hematocrit 35.9 % (39.0-53.0) Mean Corpuscular Volume 83 fL (79-100) Mean Corpuscular Hemoglobin 28 pg (25-35) Mean Corpuscular Hemoglobin Concent 34 g/dL (31-37) Red Cell Distribution Width 14.2 % (11.5-14.5) Platelet Count 225 x10^3/uL (140-400) Neutrophils (%) (Auto) 68 % (31-73) Lymphocytes (%) (Auto) 23 % (24-48) Monocytes (%) (Auto) 7 % (0-9) Eosinophils (%) (Auto) 1 % (0-3) Basophils (%) (Auto) 1 % (0-3) Neutrophils # (Auto) 5.6 x10^3uL (1.8-7.7) Lymphocytes # (Auto) 1.9 x10^3/uL (1.0-4.8) Monocytes # (Auto) 0.6 x10^3/uL (0.0-1.1) Eosinophils # (Auto) 0.1 x10^3/uL (0.0-0.7) Basophils # (Auto) 0.1 x10^3/uL (0.0-0.2) Sodium Level 136 mmol/L (136-145) Potassium Level 3.9 mmol/L (3.5-5.1) Chloride Level 102 mmol/L (98-107) Carbon Dioxide Level 27 mmol/L (21-32) Anion Gap 7 (6-14) Blood Urea Nitrogen 19 mg/dL (8-26) Creatinine 0.7 mg/dL (0.7-1.3) Estimated GFR (Cockcroft-Gault) 111.8 Glucose Level 139 mg/dL (70-99) Calcium Level 8.8 mg/dL (8.5-10.1) Test 09/15/18 05:10 Glucose (Fingerstick) 127 mg/dL (70-99) Micro BC coag neg staph Objective Assessment Fever- better - procalcitonin and Sed rate normal Bacteremia ? sepsis 2/ POA - GPC - ID pending - ECHO 09/12 very limited,, likely contaminant Encephalopathy - on Ativan - BP improving h/o ETOH and hydrocodone PCN allergy - has had amox H/o SVT Acute Resp failure - ? CAP vs AECOPD - on Bipap - on steroids HTN DO - hydrocodone Hematuria H/o Compression fractures h/o ETOH abuse Plan Plan of Care Cont Doxy and cefepime for now,, d/c vanc F/u labs and cults MIRNA WALKER MD Sep 15, 2018 10:48
--- NOTE | 2018-09-15 10:54 | PDOC ---
PROGRESS NOTES Chief Complaint Chief Complaint Alcohol withdrawal Rhabdomyolysis- acute kidney injury secondary to above Hypercapnic/hypoxic respiratory failure in a super morbidly obese on NIPPV SABRINA, need CPAP at night Possible pickwickian syndrome CAP/atelectasis on chest x-ray History of CAD, CABG COPD flare History of sepsis/UTI History of IBS, alternating bowel movements History of alcoholism AK I on CK D/ VMN Diabetes Acute on chronic back pain-took 15 [place] in the last 12 hours because of back pain Accel hypertension History of Present Illness History of Present Illness Patient seen and examined in ICU Spoke to nursing at bedside. Spoke with patient's son in law at bedside (lumber racker) Vitals Vitals Vital Signs Date Time Temp Pulse Resp B/P (MAP) Pulse Ox O2 Delivery O2 Flow Rate FiO2 09/15/18 10:33 54 146/57 09/15/18 10:00 20 95 BiPAP/CPAP 09/15/18 08:00 98.0 98.0 09/14/18 19:00 4.0 Physical Exam Physical Exam GEN: appears comfortable currently - on Bipap HEENT: Pupils are equal and reactive. He has normal conjunctivae.but some suffusion NECK: Supple - he moved from side to side. No gross JVD. LUNGS: Decreased in the bases. HEART: S1, S2, mild tachycardia. ABDOMEN: Obese, soft with decreased bowel sounds. GENITOURINARY: Mary is in place. He has clearing urine. EXTREMITIES: Without clubbing, cyanosis with trace edema. MITTS SKIN: Warm to touch without generalized signs of rash. NEUROLOGIC: He is confused. RIJ - clean. General: mild distress, Other (confused) Heart: Regular rate, Normal S1, Normal S2, Other (distant heart tones. ) Lungs: Crackles Abdomen: Soft, Other (obese) Extremities: No edema, Normal pulses Skin: No significant lesion Labs LABS Laboratory Tests Test 09/14/18 11:26 09/14/18 17:32 09/14/18 23:38 09/15/18 05:00 Glucose (Fingerstick) 163 mg/dL (70-99) 142 mg/dL (70-99) 143 mg/dL (70-99) White Blood Count 8.3 x10^3/uL (4.0-11.0) Red Blood Count 4.31 x10^6/uL (4.30-5.70) Hemoglobin 12.3 g/dL (13.0-17.5) Hematocrit 35.9 % (39.0-53.0) Mean Corpuscular Volume 83 fL (79-100) Mean Corpuscular Hemoglobin 28 pg (25-35) Mean Corpuscular Hemoglobin Concent 34 g/dL (31-37) Red Cell Distribution Width 14.2 % (11.5-14.5) Platelet Count 225 x10^3/uL (140-400) Neutrophils (%) (Auto) 68 % (31-73) Lymphocytes (%) (Auto) 23 % (24-48) Monocytes (%) (Auto) 7 % (0-9) Eosinophils (%) (Auto) 1 % (0-3) Basophils (%) (Auto) 1 % (0-3) Neutrophils # (Auto) 5.6 x10^3uL (1.8-7.7) Lymphocytes # (Auto) 1.9 x10^3/uL (1.0-4.8) Monocytes # (Auto) 0.6 x10^3/uL (0.0-1.1) Eosinophils # (Auto) 0.1 x10^3/uL (0.0-0.7) Basophils # (Auto) 0.1 x10^3/uL (0.0-0.2) Sodium Level 136 mmol/L (136-145) Potassium Level 3.9 mmol/L (3.5-5.1) Chloride Level 102 mmol/L (98-107) Carbon Dioxide Level 27 mmol/L (21-32) Anion Gap 7 (6-14) Blood Urea Nitrogen 19 mg/dL (8-26) Creatinine 0.7 mg/dL (0.7-1.3) Estimated GFR (Cockcroft-Gault) 111.8 Glucose Level 139 mg/dL (70-99) Calcium Level 8.8 mg/dL (8.5-10.1) Test 09/15/18 05:10 Glucose (Fingerstick) 127 mg/dL (70-99) Review of Systems Review of Systems unable to obtain Assessment and Plan Assessmemt and Plan Assessmemt and Plan Alcohol withdrawal Rhabdomyolysis- acute kidney injury secondary to above Hypercapnic/hypoxic respiratory failure in a super morbidly obese on NIPPV SABRINA, need CPAP at night Possible pickwickian syndrome CAP/atelectasis on chest x-ray History of CAD, CABG COPD flare History of sepsis/UTI History of IBS, alternating bowel movements History of alcoholism AK I on CK D/ VMN Diabetes Acute on chronic back pain-took 15 [place] in the last 12 hours because of back pain Accel hypertension Plan Continue ICU monitoring Back on Precedex this AM 1:1, agitated once off sedation Continue BiPap and Abx per pulm and ID respectively [place] protocol for alcohol withdrawal Supportive Care Comment Review of Relevant I have reviewed the following items barby (where applicable) has been applied. Labs Laboratory Tests Test 09/13/18 17:12 09/14/18 00:53 09/14/18 04:50 09/14/18 05:25 Glucose (Fingerstick) 154 mg/dL (70-99) 149 mg/dL (70-99) 157 mg/dL (70-99) White Blood Count 10.3 x10^3/uL (4.0-11.0) Red Blood Count 4.59 x10^6/uL (4.30-5.70) Hemoglobin 12.9 g/dL (13.0-17.5) Hematocrit 38.2 % (39.0-53.0) Mean Corpuscular Volume 83 fL (79-100) Mean Corpuscular Hemoglobin 28 pg (25-35) Mean Corpuscular Hemoglobin Concent 34 g/dL (31-37) Red Cell Distribution Width 14.2 % (11.5-14.5) Platelet Count 231 x10^3/uL (140-400) Neutrophils (%) (Auto) 85 % (31-73) Lymphocytes (%) (Auto) 9 % (24-48) Monocytes (%) (Auto) 6 % (0-9) Eosinophils (%) (Auto) 0 % (0-3) Basophils (%) (Auto) 1 % (0-3) Neutrophils # (Auto) 8.7 x10^3uL (1.8-7.7) Lymphocytes # (Auto) 0.9 x10^3/uL (1.0-4.8) Monocytes # (Auto) 0.6 x10^3/uL (0.0-1.1) Eosinophils # (Auto) 0.0 x10^3/uL (0.0-0.7) Basophils # (Auto) 0.1 x10^3/uL (0.0-0.2) Sodium Level 134 mmol/L (136-145) Potassium Level 4.5 mmol/L (3.5-5.1) Chloride Level 98 mmol/L (98-107) Carbon Dioxide Level 26 mmol/L (21-32) Anion Gap 10 (6-14) Blood Urea Nitrogen 19 mg/dL (8-26) Creatinine 0.7 mg/dL (0.7-1.3) Estimated GFR (Cockcroft-Gault) 111.8 Glucose Level 168 mg/dL (70-99) Calcium Level 8.9 mg/dL (8.5-10.1) Test 09/14/18 10:25 09/14/18 11:26 09/14/18 17:32 09/14/18 23:38 Vancomycin Level Trough 18.6 mcg/mL (10.0-20.0) Vancomycin Last Dose Date 09/13/2018 Vancomycin Last Dose Time 2300 Glucose (Fingerstick) 163 mg/dL (70-99) 142 mg/dL (70-99) 143 mg/dL (70-99) Test 09/15/18 05:00 09/15/18 05:10 White Blood Count 8.3 x10^3/uL (4.0-11.0) Red Blood Count 4.31 x10^6/uL (4.30-5.70) Hemoglobin 12.3 g/dL (13.0-17.5) Hematocrit 35.9 % (39.0-53.0) Mean Corpuscular Volume 83 fL (79-100) Mean Corpuscular Hemoglobin 28 pg (25-35) Mean Corpuscular Hemoglobin Concent 34 g/dL (31-37) Red Cell Distribution Width 14.2 % (11.5-14.5) Platelet Count 225 x10^3/uL (140-400) Neutrophils (%) (Auto) 68 % (31-73) Lymphocytes (%) (Auto) 23 % (24-48) Monocytes (%) (Auto) 7 % (0-9) Eosinophils (%) (Auto) 1 % (0-3) Basophils (%) (Auto) 1 % (0-3) Neutrophils # (Auto) 5.6 x10^3uL (1.8-7.7) Lymphocytes # (Auto) 1.9 x10^3/uL (1.0-4.8) Monocytes # (Auto) 0.6 x10^3/uL (0.0-1.1) Eosinophils # (Auto) 0.1 x10^3/uL (0.0-0.7) Basophils # (Auto) 0.1 x10^3/uL (0.0-0.2) Sodium Level 136 mmol/L (136-145) Potassium Level 3.9 mmol/L (3.5-5.1) Chloride Level 102 mmol/L (98-107) Carbon Dioxide Level 27 mmol/L (21-32) Anion Gap 7 (6-14) Blood Urea Nitrogen 19 mg/dL (8-26) Creatinine 0.7 mg/dL (0.7-1.3) Estimated GFR (Cockcroft-Gault) 111.8 Glucose Level 139 mg/dL (70-99) Calcium Level 8.8 mg/dL (8.5-10.1) Glucose (Fingerstick) 127 mg/dL (70-99) Laboratory Tests Test 09/14/18 11:26 09/14/18 17:32 09/14/18 23:38 09/15/18 05:00 Glucose (Fingerstick) 163 mg/dL (70-99) 142 mg/dL (70-99) 143 mg/dL (70-99) White Blood Count 8.3 x10^3/uL (4.0-11.0) Red Blood Count 4.31 x10^6/uL (4.30-5.70) Hemoglobin 12.3 g/dL (13.0-17.5) Hematocrit 35.9 % (39.0-53.0) Mean Corpuscular Volume 83 fL (79-100) Mean Corpuscular Hemoglobin 28 pg (25-35) Mean Corpuscular Hemoglobin Concent 34 g/dL (31-37) Red Cell Distribution Width 14.2 % (11.5-14.5) Platelet Count 225 x10^3/uL (140-400) Neutrophils (%) (Auto) 68 % (31-73) Lymphocytes (%) (Auto) 23 % (24-48) Monocytes (%) (Auto) 7 % (0-9) Eosinophils (%) (Auto) 1 % (0-3) Basophils (%) (Auto) 1 % (0-3) Neutrophils # (Auto) 5.6 x10^3uL (1.8-7.7) Lymphocytes # (Auto) 1.9 x10^3/uL (1.0-4.8) Monocytes # (Auto) 0.6 x10^3/uL (0.0-1.1) Eosinophils # (Auto) 0.1 x10^3/uL (0.0-0.7) Basophils # (Auto) 0.1 x10^3/uL (0.0-0.2) Sodium Level 136 mmol/L (136-145) Potassium Level 3.9 mmol/L (3.5-5.1) Chloride Level 102 mmol/L (98-107) Carbon Dioxide Level 27 mmol/L (21-32) Anion Gap 7 (6-14) Blood Urea Nitrogen 19 mg/dL (8-26) Creatinine 0.7 mg/dL (0.7-1.3) Estimated GFR (Cockcroft-Gault) 111.8 Glucose Level 139 mg/dL (70-99) Calcium Level 8.8 mg/dL (8.5-10.1) Test 09/15/18 05:10 Glucose (Fingerstick) 127 mg/dL (70-99) Microbiology 09/09/18 Blood Culture - Final, Complete NO GROWTH AFTER 5 DAYS Medications Current Medications Thiamine Mononitrate (Vitamin B-1) 100 mg 1X STAT PO Last administered on at 14:50; Start 09/09/18 at 14:38; Stop 09/09/18 at 14:41; Status DC Folic Acid (Folic Acid) 1 mg 1X STAT PO Last administered on 09/09/18at 14:50 ; Start 09/09/18 at 14:38; Stop 09/09/18 at 14:41; Status DC Sodium Chloride 1,000 ml @ 1,000 mls/hr 1X ONCE IV Last administered on 09/09at 14:50; Start 09/09/18 at 15:00; Stop 09/09/18 at 15:59; Status DC Labetalol HCl (Normodyne Iv Push) 20 mg 1X ONCE IVP Last administered on 09/09at 16:53; Start 09/09/18 at 17:00; Stop 09/09/18 at 17:01; Status DC Chlordiazepoxide (Librium) 25 mg PRN Q6HRS PRN PO ANXIETY / AGITATION Last administered on 09/09/18at 22:35; Start 09/09/18 at 17:00; Stop 09/10/18 at 10 :35; Status DC Acetaminophen (Tylenol) 500 mg PRN Q6HRS PRN PO MILD PAIN / TEMP; Start at 17:00 Morphine Sulfate (Morphine Sulfate) 2 mg PRN Q2HR PRN IV MODERATE TO SEVERE PAIN Last administered on 09/12/18at 11:14; Start 09/09/18 at 17:00; Stop at 11:45; Status DC Sodium Chloride 1,000 ml @ 100 mls/hr Q10H IV Last administered on 09/09/18at 19:30; Start 09/09/18 at 18:00; Stop 09/10/18 at 10:35; Status DC Multivitamins (Thera M Plus) 1 tab DAILY PO ; Start 09/10/18 at 09:00; Stop at 13:13; Status DC Thiamine Mononitrate (Vitamin B-1) 100 mg DAILY PO ; Start 09/10/18 at 09:00; Stop 09/11/18 at 13:13; Status DC Folic Acid (Folic Acid) 1 mg DAILY PO ; Start 09/10/18 at 09:00; Stop at 13:13; Status DC Labetalol HCl (Normodyne Iv Push) 20 mg PRN Q2HR PRN IVP HYPERTENSION, 2ND CHOICE Last administered on 09/14/18at 20:07; Start 09/09/18 at 17:00 Nicotine (Nicoderm Cq 21mg) 1 patch PRN DAILY PRN TD SMOKING CESSATION; Start 09/09/18 at 17:15; Stop 09/11/18 at 13:13; Status DC Oxycodone/ Acetaminophen (Percocet 5/325) 1 tab PRN Q4HRS PRN PO SEVERE PAIN; Start 09/09/18 at 17:15 Diphenhydramine HCl (Benadryl) 25 mg PRN QHS PRN PO INSOMNIA; Start 09/09/18 at 17:15 Aspirin (Children'S Aspirin) 81 mg DAILYWBKFT PO ; Start 09/10/18 at 08:00; Stop 09/12/18 at 09:56; Status DC Atorvastatin Calcium (Lipitor) 40 mg QHS PO Last administered on 09/09/18at 21: 11; Start 09/09/18 at 21:00; Stop 09/12/18 at 09:56; Status DC Atorvastatin Calcium (Lipitor) 40 mg QHS PO ; Start 09/09/18 at 21:00; Status UNV Duloxetine HCl (Cymbalta) 30 mg BID PO Last administered on 09/09/18at 21:12; Start 09/09/18 at 21:00; Stop 09/11/18 at 13:13; Status DC Ferrous Sulfate (Feosol) 325 mg DAILYAC PO ; Start 09/10/18 at 07:30; Stop at 13:13; Status DC Finasteride (Proscar) 5 mg DAILY PO ; Start 09/10/18 at 09:00; Stop 09/12/18 at 09:56; Status DC Lorazepam (Ativan) 0.5 mg PRN DAILY PRN PO ANXIETY / AGITATION; Start at 17:15; Stop 09/10/18 at 10:35; Status DC Metoprolol Tartrate (Lopressor) 25 mg BID PO Last administered on 09/09/18at 21 :12; Start 09/09/18 at 21:00; Stop 09/11/18 at 13:19; Status DC Pantoprazole Sodium (Protonix) 40 mg DAILYAC PO ; Start 09/10/18 at 07:30; Stop 09/11/18 at 12:20; Status DC Tamsulosin HCl (Flomax) 0.4 mg DAILY PO ; Start 09/10/18 at 09:00; Stop at 09:56; Status DC Tramadol HCl (Ultram) 50 mg PRN Q6HRS PRN PO MODERATE PAIN; Start 09/09/18 at 17:15 Budesonide (Pulmicort) 0.5 mg RTBID NEB Last administered on 09/12/18at 07:47; Start 09/09/18 at 20:00; Stop 09/12/18 at 11:45; Status DC Diltiazem HCl (Cardizem 24hr Cd) 120 mg DAILY PO ; Start 09/10/18 at 09:00; Stop 09/11/18 at 13:13; Status DC Insulin Glargine (Lantus) 10 units QHS SQ Last administered on 09/09/18at 21:49 ; Start 09/09/18 at 21:00; Stop 09/10/18 at 10:35; Status DC Levothyroxine Sodium (Synthroid) 50 mcg DAILY06 PO ; Start 09/10/18 at 06:00; Stop 09/12/18 at 09:56; Status DC Lidocaine (Lidoderm) 1 patch DAILY TD Last administered on 09/15/18at 10:33; Start 09/10/18 at 09:00 Lisinopril (Prinivil) 2.5 mg DAILY PO ; Start 09/10/18 at 09:00; Stop at 13:13; Status DC Non-Formulary Medication (Tiotropium [place] (Spiriva)) 2 inh DAILY IH ; Start 09/10/18 at 09:00; Status UNV Warfarin Sodium (Coumadin) 7.5 mg DAILY16 PO ; Start 09/09/18 at 18:00; Stop 09/10/18 at 16:34; Status DC Insulin Human Lispro (HumaLOG) 0-9 UNITS TIDWMEALS SQ ; Start 09/10/18 at 08:00 ; Stop 09/11/18 at 13:13; Status DC Dextrose (Dextrose 50%-Water Syringe) 12.5 gm PRN Q15MIN PRN IV SEE COMMENTS; Start 09/09/18 at 17:15; Stop 09/12/18 at 08:17; Status DC Miscellaneous (Lidoderm Patch Removal) 1 ea QHS MC Last administered on at 21:00; Start 09/09/18 at 21:00 Albuterol/ Ipratropium (Duoneb) 3 ml RTQID NEB Last administered on 09/15/18at 07:10; Start 09/09/18 at 20:00 Warfarin Sodium (Coumadin Per Physician) 1 each PRN DAILY PRN MC SEE COMMENTS Last administered on 09/11/18at 11:21; Start 09/09/18 at 17:30; Stop 09/11/18 at 13:13; Status DC Sodium Chloride 1,000 ml @ 75 mls/hr [id number] IV ; Start 09/09/18 at 17:30; Stop 09/10/18 at 10:35; Status DC Lorazepam (Ativan) 2 mg 1X ONCE IV Last administered on 09/09/18at 17:30; Start 09/09/18 at 17:30; Stop 09/09/18 at 17:31; Status DC Clonidine HCl (Catapres) 0.1 mg PRN Q1HR PRN PO SBP > 180 or DBP > 100, MRX3; Start 09/09/18 at 17:30 Lorazepam (Ativan) 2 mg PRN Q15MIN PRN IV CIWA 8-14 Last administered on at 20:38; Start 09/09/18 at 17:30 Albuterol/ Ipratropium (Duoneb) 3 ml 1X ONCE NEB ; Start 09/09/18 at 17:30; Stop 09/09/18 at 17:31; Status DC Levofloxacin/ Dextrose 150 ml @ 100 mls/hr 1X ONCE IV Last administered on at 21:03; Start 09/09/18 at 17:30; Stop 09/09/18 at 18:59; Status DC Albuterol/ Ipratropium (Duoneb) 3 ml RTQID NEB ; Start 09/09/18 at 20:00; Status UNV Guaifenesin (Robitussin Dm) 10 ml PRN Q6HRS PRN PO COUGH; Start 09/09/18 at 19 :00 Levofloxacin/ Dextrose (Levaquin Per Pharmacy) 1 each PRN DAILY PRN MC SEE COMMENTS; Start 09/09/18 at 19:00; Stop 09/11/18 at 09:24; Status DC Heparin Sodium (Porcine) (Heparin Sodium) 5,000 unit Q8HRS SQ Last administered on 09/11/18at 05:48; Start 09/09/18 at 22:00; Stop 09/12/18 at 11 :01; Status DC Levofloxacin/ Dextrose 50 ml @ 50 mls/hr Q24H IV ; Start 09/10/18 at 20:00; Stop 09/10/18 at 20:00; Status DC Haloperidol Lactate (Haldol Inj) 5 mg PRN Q6HRS PRN IVP AGITATION Last administered on 09/13/18at 11:46; Start 09/10/18 at 01:15 Famotidine (Pepcid Vial) 20 mg QHS IVP Last administered on 09/12/18at 20:47; Start 09/10/18 at 21:00; Stop 09/13/18 at 08:50; Status DC Methylprednisolone Sodium Succinate (SOLU-Medrol 40MG VIAL) 40 mg Q12HR IV Last administered on 09/14/18at 08:24; Start 09/10/18 at 09:00; Stop 09/14/18 at 12:49; Status DC Chlordiazepoxide (Librium) 50 mg PRN Q6HRS PRN PO ANXIETY/AGITATION, 2ND CHOICE ; Start 09/10/18 at 10:45 Lorazepam (Ativan) 1 mg PRN DAILY PRN PO ANXIETY / AGITATION, 1ST CHOIC; Start 09/10/18 at 10:45 Dexmedetomidine HCl 200 mcg/ Sodium Chloride 50 ml @ 0 mls/hr CONT PRN IV PER PROTOCOL Last administered on 09/15/18at 09:03; Start 09/10/18 at 13:30 Sodium Chloride 500 ml @ 500 mls/hr 1X PRN PRN IV SEE COMMENTS; Start at 13:30 Atropine Sulfate (ATROPINE 0.5mg SYRINGE) 0.5 mg PRN Q5MIN PRN IV SEE COMMENTS ; Start 09/10/18 at 13:30; Stop 09/12/18 at 13:15; Status DC Levofloxacin/ Dextrose 100 ml @ 100 mls/hr Q24H IV Last administered on at 20:48; Start 09/10/18 at 20:00; Stop 09/11/18 at 09:36; Status DC Enalaprilat (Vasotec Inj) 1.25 mg PRN Q4HRS PRN IVP HYPERTENSION, 1ST CHOICE Last administered on 09/13/18at 18:23; Start 09/11/18 at 02:45 Vancomycin HCl (Vanco Per Pharmacy) 1 each PRN DAILY PRN MC SEE COMMENTS Last administered on 09/14/18at 12:16; Start 09/11/18 at 09:15; Stop 09/15/18 at 10 :49; Status DC Vancomycin HCl 2 gm/Sodium Chloride 500 ml @ 250 mls/hr 1X ONCE IV Last administered on 09/11/18at 10:40; Start 09/11/18 at 09:30; Stop 09/11/18 at 11 :29; Status DC Doxycycline Hyclate (Vibra-Tab) 100 mg BID PO ; Start 09/11/18 at 10:00; Stop 09/11/18 at 15:16; Status DC Cefepime HCl (Maxipime) 1 gm Q8H IVP Last administered on 09/15/18at 10:32; Start 09/11/18 at 10:00 Vancomycin HCl 1.75 gm/Sodium Chloride 500 ml @ 250 mls/hr Q12H IV Last administered on 09/12/18at 22:58; Start 09/11/18 at 23:00; Stop 09/12/18 at 23 :59; Status DC Vancomycin HCl (Vancomycin Trough Level) 1 each 1X ONCE MC Last administered on 09/12/18at 22:26; Start 09/12/18 at 22:30; Stop 09/12/18 at 22:31; Status DC Pantoprazole Sodium (PROTONIX VIAL for IV PUSH) 40 mg DAILYAC IVP Last administered on 09/15/18at 08:37; Start 09/11/18 at 12:30 Multivitamins 10 ml/Thiamine HCl 100 mg/Folic Acid 1 mg/Sodium Chloride 1,011.2 ml @ 0 mls/hr DAILY IV Last administered on 09/15/18at 09:30; Start 09/11/18 at 14:00 Insulin Human Lispro (HumaLOG) 0-7 UNITS TIDWMEALS SQ ; Start 09/11/18 at 17:00 ; Stop 09/11/18 at 17:00; Status DC Dextrose (Dextrose 50%-Water Syringe) 12.5 gm PRN Q15MIN PRN IV SEE COMMENTS; Start 09/11/18 at 13:00 Insulin Human Lispro (HumaLOG) 0-7 UNITS Q6HRS SQ Last administered on at 05:41; Start 09/11/18 at 18:00 Levothyroxine Sodium 0.025 mcg/ Sodium Chloride 5 ml @ 0 mls/hr DAILY IVP ; Start 09/11/18 at 13:30; Stop 09/11/18 at 13:52; Status DC Magnesium Sulfate 50 ml @ 25 mls/hr 1X ONCE IV Last administered on at 15:40; Start 09/11/18 at 13:30; Stop 09/11/18 at 15:29; Status DC Levothyroxine Sodium 25 mcg/ Sodium Chloride 5 ml @ 0 mls/hr DAILY IVP Last administered on 09/14/18at 09:00; Start 09/11/18 at 13:52 Levothyroxine Sodium 25 mcg/ Sodium Chloride 5 ml @ 0 mls/hr 1X ONCE IVP Last administered on 09/11/18at 14:45; Start 09/11/18 at 14:45; Stop 09/11/18 at 14 :46; Status DC Doxycycline Hyclate 100 mg/ Dextrose 100 ml @ 50 mls/hr Q12HR IV Last administered on 09/15/18at 08:37; Start 09/11/18 at 16:00 Magnesium Sulfate 50 ml @ 25 mls/hr 1X ONCE IV Last administered on at 12:56; Start 09/12/18 at 11:30; Stop 09/12/18 at 13:29; Status DC Amino Acids/ Glycerin/ Electrolytes 1,000 ml @ 50 mls/hr Q20H IV Last administered on 09/14/18at 23:27; Start 09/12/18 at 11:30 Haloperidol Lactate (Haldol Inj) 10 mg Q8HRS IVP Last administered on at 05:48; Start 09/12/18 at 14:00 Dexmedetomidine HCl 200 mcg/ Sodium Chloride 50 ml @ 0 mls/hr CONT PRN IV PER PROTOCOL; Start 09/12/18 at 13:15; Stop 09/12/18 at 14:04; Status DC Sodium Chloride 500 ml @ 500 mls/hr 1X PRN PRN IV SEE COMMENTS; Start at 13:15 Atropine Sulfate (ATROPINE 0.5mg SYRINGE) 0.5 mg PRN Q5MIN PRN IV SEE COMMENTS ; Start 09/12/18 at 13:15 Morphine Sulfate (Morphine Sulfate) 2 mg PRN Q2HR PRN IV PAIN Last administered on 09/14/18at 05:10; Start 09/12/18 at 13:15; Stop 09/14/18 at 12 :57; Status DC Metoprolol Tartrate (Lopressor) 25 mg BID PO ; Start 09/12/18 at 17:00; Stop 09/12/18 at 17:00; Status DC Metoprolol Tartrate (Lopressor Vial) 5 mg Q6HRS IVP Last administered on 23:33; Start 09/12/18 at 18:00 Vancomycin HCl 2 gm/Sodium Chloride 500 ml @ 250 mls/hr Q12H IV Last administered on 09/14/18 23:26; Start 09/13/18 at 11:00; Stop 09/15/18 at 10 :49; Status DC Vancomycin HCl (Vancomycin Trough Level) 1 each 1X ONCE MC Last administered on 09/14/18 10:30; Start 09/14/18 at 10:30; Stop 09/14/18 at 10:31; Status DC Nitroglycerin (Nitro-Bid Oint) 1 inch Q6HRS TP Last administered on 09/15/18 05:53; Start 09/14/18 at 08:30 Aspirin (Aspirin) 300 mg DAILY MI Last administered on 09/15/18 10:33; Start 09/14/18 at 11:00 Methylprednisolone Sodium Succinate (SOLU-Medrol 40MG VIAL) 40 mg DAILY IV Last administered on 09/15/18at 08:38; Start 09/15/18 at 09:00 Morphine Sulfate (Morphine Sulfate) 2 mg PRN Q2HR PRN IV PAIN Last administered on 09/14/18at 20:38; Start 09/14/18 at 13:00 Active Scripts Active Pantoprazole Sodium 40 Mg Tablet.dr 40 Mg PO DAILYAC Lidoderm (Lidocaine) 700 Mg Adh..patch 1 Patch TD DAILY 12hours on, 12 hours off Lisinopril 2.5 Mg Tablet 2.5 Mg PO DAILY Feosol (Ferrous Sulfate) 325 Mg Tablet 325 Mg PO DAILYAC Children's Aspirin (Aspirin) 81 Mg Tab.chew 81 Mg PO DAILYWBKFT Reported Ventolin Hfa Inhaler (Albuterol Sulfate) 18 Gm Hfa.aer.ad 2 Puff INH Q4HRS Mirtazapine 45 Mg Tablet 1 Tab PO QHS Glipizide 5 Mg Tablet 1 Tab PO BID Metformin Hcl 1,000 Mg Tablet 1,000 Mg PO BIDWMEALS Lantus (Insulin Glargine,Hum.rec.anlog) 100 Unit/1 Ml Vial 50 Unit SQ HS NITROGLYCERIN SubLingual (Nitroglycerin) 0.4 Mg Tab.subl 0.4 Mg SL PRN Q5MIN PRN Fluoxetine Hcl 20 Mg Capsule 3 Cap PO DAILY Novolin R (Insulin Regular, Human) 100 Unit/1 Ml Vial 100 Unit IJ QIDACHS Vitamin D3 (Cholecalciferol (Vitamin D3)) 1,000 Unit Tablet 1 Tab PO TID Vitamin B-12 (Cyanocobalamin (Vitamin B-12)) 1,000 Mcg Tablet 1 Tab PO DAILY Gemfibrozil 600 Mg Tablet 0.5 Tab PO BID Pepcid (Famotidine) 20 Mg Tablet 10 Mg PO BID Cardizem Cd (Diltiazem Hcl) 240 Mg Cap.er.24h 1 Cap PO DAILY Robaxin (Methocarbamol) 500 Mg Tablet 1 Tab PO BID PRN Niaspan (Niacin) 500 Mg Tab.er.24h 1 Tab PO QHS Gabapentin 600 Mg Tablet 300 Mg PO QID Symbicort 80-4.5 Mcg Inhaler (Budesonide/Formoterol Fumarate) 10.2 Gm Hfa.aer.ad 2 Puff IH BID Finasteride 5 Mg Tablet 1 Tab PO DAILY Levothyroxine Sodium 50 Mcg Tablet 1 Tab PO DAILY Tamsulosin Hcl 0.4 Mg Cap.er.24h 0.4 Mg PO BID Spiriva (Tiotropium [place]) 18 Mcg Cap.w.dev 2 Inh IH DAILY Hydrocodone-Apap 7.5-325 (Hydrocodone Bit/Acetaminophen) 1 Each Tablet 1 Tab PO Q4HRS PRN Metoprolol Tartrate 25 Mg Tablet 1 Tab PO BID Vitals/I & O Vital Sign - Last 24 Hours 09/14/18 09/14/18 09/14/18 09/14/18 11:00 11:44 12:00 12:00 Temp 98.2 98.2 Pulse 64 76 74 Resp 20 20 B/P (MAP) 158/78 (104) 158/78 170/80 (110) Pulse Ox 100 98 O2 Delivery BiPAP/CPAP Nasal Cannula Nasal Cannula O2 Flow Rate 5.0 5.0 09/14/18 09/14/18 09/14/18 09/14/18 12:00 13:00 13:08 13:23 Pulse 88 Resp 24 B/P (MAP) 154/80 (104) Pulse Ox 98 98 97 O2 Delivery Nasal Cannula Nasal Cannula Nasal Cannula O2 Flow Rate 5.0 5.0 5.0 5.0 09/14/18 09/14/18 09/14/18 09/14/18 13:24 14:00 15:00 15:34 Pulse 84 78 73 Resp 26 28 B/P (MAP) 154/80 140/81 (100) 150/81 (104) Pulse Ox 99 97 98 O2 Delivery Nasal Cannula Nasal Cannula Nasal Cannula O2 Flow Rate 5.0 4.0 5.0 09/14/18 09/14/18 09/14/18 09/14/18 16:00 16:00 16:00 16:34 Temp 97.5 97.5 Pulse 78 Resp 16 26 B/P (MAP) 149/77 (101) Pulse Ox 97 97 O2 Delivery Nasal Cannula Nasal Cannula Nasal Cannula O2 Flow Rate 4.0 4.0 5.0 4.0 09/14/18 09/14/18 09/14/18 09/14/18 17:00 17:08 17:40 17:41 Pulse 75 70 75 Resp 24 B/P (MAP) 175/77 (109) 175/77 175/77 Pulse Ox 98 O2 Delivery Nasal Cannula O2 Flow Rate 4.0 4.0 09/14/18 09/14/18 09/14/18 09/14/18 18:00 19:00 19:48 20:00 Temp 98.2 98.2 Pulse 75 73 Resp 24 23 B/P (MAP) 160/89 (112) 168/85 (112) Pulse Ox 97 98 97 O2 Delivery Nasal Cannula Nasal Cannula BiPAP/CPAP Bi-pap O2 Flow Rate 4.0 4.0 09/14/18 09/14/18 09/14/18 09/14/18 20:07 20:38 21:00 21:00 Pulse 66 73 64 Resp 24 17 19 B/P (MAP) 169/64 176/87 (116) 169/64 (99) Pulse Ox 99 97 97 O2 Delivery BiPAP/CPAP BiPAP/CPAP BiPAP/CPAP 09/14/18 09/14/18 09/14/18 09/14/18 21:08 22:00 23:00 23:12 Pulse 62 73 Resp 24 19 21 B/P (MAP) 164/88 (113) 162/75 (104) Pulse Ox 97 97 98 97 O2 Delivery BiPAP/CPAP BiPAP/CPAP BiPAP/CPAP BiPAP/CPAP 09/14/18 09/14/18 09/14/18 09/15/18 23:33 23:34 23:59 00:00 Temp 98.5 98.5 Pulse 74 74 56 Resp 29 B/P (MAP) 161/64 161/64 170/86 (114) Pulse Ox 99 O2 Delivery Bi-pap BiPAP/CPAP 09/15/18 09/15/18 09/15/18 09/15/18 01:00 01:16 02:00 03:00 Pulse 55 54 51 Resp 22 19 18 B/P (MAP) 176/86 (116) 160/78 (105) 147/55 (85) Pulse Ox 99 98 98 99 O2 Delivery BiPAP/CPAP BiPAP/CPAP BiPAP/CPAP BiPAP/CPAP 09/15/18 09/15/18 09/15/18 09/15/18 03:45 04:00 04:00 05:00 Temp 97.8 97.8 Pulse 48 52 Resp 21 17 B/P (MAP) 158/82 (107) 153/79 (103) Pulse Ox 98 99 96 O2 Delivery BiPAP/CPAP Bi-pap BiPAP/CPAP BiPAP/CPAP 09/15/18 09/15/18 09/15/18 09/15/18 05:42 05:53 06:00 07:00 Pulse 61 52 54 Resp 19 20 B/P (MAP) 159/87 159/87 (111) 108/60 (76) Pulse Ox 97 98 97 O2 Delivery BiPAP/CPAP BiPAP/CPAP BiPAP/CPAP 09/15/18 09/15/18 09/15/18 09/15/18 07:11 08:00 08:00 09:00 Temp 98.0 98.0 Pulse 52 54 Resp 20 20 B/P (MAP) 124/59 (80) 134/71 (92) Pulse Ox 99 98 98 O2 Delivery BiPAP/CPAP Bi-pap BiPAP/CPAP BiPAP/CPAP 09/15/18 09/15/18 09/15/18 09:33 10:00 10:33 Pulse 52 54 Resp 20 B/P (MAP) 135/70 (91) 146/57 Pulse Ox 97 95 O2 Delivery BiPAP/CPAP BiPAP/CPAP Intake and Output 09/14/18 09/14/18 09/15/18 15:01 23:01 07:01 Intake Total 600 ml 1772.35 ml 1290 ml Output Total 1450 ml 1425 ml 1660 ml Balance -850 ml 347.35 ml -370 ml SAURABH DOTSON III DO Sep 15, 2018 10:54
[2018-09-15] MEDS: NORMAL SALINE IVP SCH (10:59)
[2018-09-15] MEDS: LEVOTHYROXINE SODIUM IVP SCH (10:59)
[2018-09-15] MEDS: MORPHINE SULFATE 4 MG/ML VIAL. IV PRN ×3 (14:09→21:39)
--- NOTE | 2018-09-15 14:24 | RAD ---
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 Comparison: July 11, 2016 Findings: There is fairly severe motion degradation even for repeated images. There is no convincing evidence of recent infarct. There is no new midline shift or significant extra axial fluid collection. There is again multifocal [id number]-de-ufkcusru T2 and FLAIR hyperintense abnormality of the supratentorial parenchyma bilaterally greatest of the periatrial and parietal white matter. Accurate evaluation for degree of change of T2 and FLAIR hyperintense abnormality is limited due to severe motion, including of the parasagittal parietal and frontal lobes, probably unchanged allowing for likely artifact in the parasagittal frontal parietal lobes. There is generalized supratentorial involutional change as seen previously. There is disconjugate gaze. There is patchy minimal ethmoid air cell mucosal thickening. There is again large right maxillary sinus mucous retention cyst. There is preservation of the major arterial flow voids at the skull base. There is mild thickening of the mastoid air cells greater on the right. Impression: 1. Exam is significantly degraded by motion, no convincing evidence of recent infarct or intracranial mass effect. Accurate evaluation for change of T2 and FLAIR hyperintense signal of the supratentorial parenchyma is limited due to severe motion, again scattered T2 and FLAIR hyperintense signal likely due to chronic intravascular ischemic disease. Accurate evaluation of the parasagittal frontal parietal lobes is very limited, although findings probably unchanged allowing for motion. If there is persistent clinical concern for posterior reversible encephalopathy syndrome, attempt at repeat FLAIR sequence could be beneficial. Electronically signed by: Jamil Che MD (09/15/2018 2:20 PM) [facility]
[2018-09-15] MEDS: HALOPERIDOL LACTATE 5 MG/ML VIAL. IVP PRN ×2 (16:07→23:00)
[2018-09-15] MEDS: PATCH REMOVAL. MC SCH (21:00)
[2018-09-15] MEDS: AMINO AC 3%/ELECTROLYTE/GLYCER 1,000 ML IV SCH (21:38)
[2018-09-16] VITALS (24 sets, daily range): BP systolic 108–199; BP diastolic 70–103
[2018-09-16] MEDS: MORPHINE SULFATE 4 MG/ML VIAL. IV PRN ×2 (00:40→20:50)
[2018-09-16] MEDS: CEFEPIME HCL IV Push 1 GM VIAL. IVP SCH ×3 (02:14→18:23)
[2018-09-16] MEDS: METOPROLOL TARTRATE 5 MG/5 ML VIAL. IVP SCH ×4 (02:15→18:24)
[2018-09-16 04:39] LABS: BASO # 0.1 x10^3/uL (0.0-0.2); BASO % 1 % (0-3); EOS # 0.1 x10^3/uL (0.0-0.7); EOS % 1 % (0-3); HEMATOCRIT 37.9 % (39.0-53.0); HEMOGLOBIN 12.8 g/dL (13.0-17.5); LYMPH # 2.1 x10^3/uL (1.0-4.8); LYMPH % 19 % (24-48); MEAN CORPUSCULAR HEMOGLOBIN 28 pg (25-35); MEAN CORPUSCULAR HGB CONC 34 g/dL (31-37); MEAN CORPUSCULAR VOLUME 84 fL (79-100); MONO # 1.2 x10^3/uL (0.0-1.1); MONO % 11 % (0-9); NEUT # 7.3 x10^3uL (1.8-7.7); NEUT % 68 % (31-73); PLATELET COUNT 275 x10^3/uL (140-400); RED BLOOD COUNT 4.53 x10^6/uL (4.30-5.70); WHITE BLOOD COUNT 10.8 x10^3/uL (4.0-11.0)
[2018-09-16 04:57] LABS: CALCIUM 9.2 mg/dL (8.5-10.1); CREATININE 0.8 mg/dL (0.7-1.3); GFR 95.8; POTASSIUM 3.8 mmol/L (3.5-5.1)
[2018-09-16] MEDS: NITROGLYCERIN OINT 1 GM PACKET. TP SCH ×4 (06:00→18:52)
[2018-09-16] MEDS: INSULIN LISPRO 300 UNITS/3 ML INSULN.PEN. SQ SCH ×4 (06:00→18:00)
[2018-09-16] MEDS: HALOPERIDOL LACTATE 5 MG/ML VIAL. IVP SCH ×3 (06:02→23:42)
[2018-09-16] MEDS: PANTOPRAZOLE IV PUSH 40 MG VIAL. IVP SCH (08:15)
[2018-09-16] MEDS: methylPREDNISolone SOD SUCC PF 40 MG/ML VIAL. IV SCH (08:15)
[2018-09-16] MEDS: LIDOCAINE (700MG/PATCH) PATCH. TD SCH ×2 (08:16→23:42)
[2018-09-16] MEDS: MULTIVIT INFUSN,ADULT 4,VIT K 10 ML, THIAMINE INJ 100 MG, FOLIC ACID INJ 1 MG in IV NOR... IV SCH (08:17)
[2018-09-16] MEDS: DOXYCYCLINE HYCLATE 100 MG in IV DEXTROSE 5% 100ML 100 ML IV SCH ×2 (08:17→23:41)
[2018-09-16] MEDS: NORMAL SALINE IVP SCH (08:19)
[2018-09-16] MEDS: LEVOTHYROXINE SODIUM IVP SCH (08:19)
[2018-09-16] MEDS: ASPIRIN 300 MG SUPP.RECT PR SCH (08:20)
[2018-09-16] MEDS: IPRATRPIUM/ALBUTEROL 0.5/2.5MG 3 ML NEBU. NEB SCH ×4 (08:33→19:16)
--- NOTE | 2018-09-16 10:33 | PDOC ---
Infectious Disease Note Subjective Subjective No fevers last 24 hours 4L O2 ROS ROS Unobtainable as patient is minimally responsive Vital Sign Vital Signs Vital Signs Date Time Temp Pulse Resp B/P (MAP) Pulse Ox O2 Delivery O2 Flow Rate FiO2 09/16/18 09:00 86 23 135/80 (98) Nasal Cannula 4.0 09/16/18 08:33 97 09/16/18 04:00 98.1 98.1 Physical Exam PHYSICAL EXAM GENERAL: Propped up in bed, fidgety, + mittens HEENT: Pupils are equal and reactive. Normal conjunctivae, Oral cavity pink, moist NECK: Supple - he moved from side to side. LUNGS: Decreased in the bases. HEART: S1, S2 ABDOMEN: Obese, soft, no grimace or guarding to palpation : Mary EXTREMITIES: Without clubbing, cyanosis with trace edema. SKIN: Warm to touch without generalized signs of rash. NEUROLOGIC: Confused Labs Lab Laboratory Tests Test 09/15/18 12:30 09/15/18 17:29 09/16/18 00:31 09/16/18 04:00 Glucose (Fingerstick) 149 mg/dL (70-99) 109 mg/dL (70-99) 118 mg/dL (70-99) White Blood Count 10.8 x10^3/uL (4.0-11.0) Red Blood Count 4.53 x10^6/uL (4.30-5.70) Hemoglobin 12.8 g/dL (13.0-17.5) Hematocrit 37.9 % (39.0-53.0) Mean Corpuscular Volume 84 fL (79-100) Mean Corpuscular Hemoglobin 28 pg (25-35) Mean Corpuscular Hemoglobin Concent 34 g/dL (31-37) Red Cell Distribution Width 14.0 % (11.5-14.5) Platelet Count 275 x10^3/uL (140-400) Neutrophils (%) (Auto) 68 % (31-73) Lymphocytes (%) (Auto) 19 % (24-48) Monocytes (%) (Auto) 11 % (0-9) Eosinophils (%) (Auto) 1 % (0-3) Basophils (%) (Auto) 1 % (0-3) Neutrophils # (Auto) 7.3 x10^3uL (1.8-7.7) Lymphocytes # (Auto) 2.1 x10^3/uL (1.0-4.8) Monocytes # (Auto) 1.2 x10^3/uL (0.0-1.1) Eosinophils # (Auto) 0.1 x10^3/uL (0.0-0.7) Basophils # (Auto) 0.1 x10^3/uL (0.0-0.2) Sodium Level 139 mmol/L (136-145) Potassium Level 3.8 mmol/L (3.5-5.1) Chloride Level 103 mmol/L (98-107) Carbon Dioxide Level 26 mmol/L (21-32) Anion Gap 10 (6-14) Blood Urea Nitrogen 21 mg/dL (8-26) Creatinine 0.8 mg/dL (0.7-1.3) Estimated GFR (Cockcroft-Gault) 95.8 Glucose Level 117 mg/dL (70-99) Calcium Level 9.2 mg/dL (8.5-10.1) Test 09/16/18 06:04 Glucose (Fingerstick) 119 mg/dL (70-99) Brain MRI 1. Exam is significantly degraded by motion, no convincing evidence of recent infarct or intracranial mass effect. Accurate evaluation for change of T2 and FLAIR hyperintense signal of the supratentorial parenchyma is limited due to severe motion, again scattered T2 and FLAIR hyperintense signal likely due to chronic intravascular ischemic disease. Accurate evaluation of the parasagittal frontal parietal lobes is very limited, although findings probably unchanged allowing for motion. If there is persistent clinical concern for posterior reversible encephalopathy syndrome, attempt at repeat FLAIR sequence could be beneficial. Micro Objective Assessment Fever- better - procalcitonin and Sed rate normal Bacteremia ? sepsis 2/ POA. CoNS x 2, likely contaminant. ECHO 09/12 very limited,, Encephalopathy - on Ativan - BP improved h/o ETOH and hydrocodone. PCN allergy - has had amox H/o SVT Acute Resp failure - ? CAP vs AECOPD, on steroids HTN DO - hydrocodone Hematuria - clearing H/o Compression fractures h/o ETOH abuse Plan Plan of Care Cont Doxy and cefepime for now,, Off vanc F/u labs and cults Supportive care D/w daughter D/w RN Patient seen and examined. Chart reviewed in detail. Case discussed with [employer]. Agree with above plan. GABRIEL CALLES APRN Sep 16, 2018 10:32 BERTA CHAWLA MD Sep 16, 2018 20:07
--- NOTE | 2018-09-16 10:55 | PDOC ---
PROGRESS NOTES Chief Complaint Chief Complaint Alcohol withdrawal Rhabdomyolysis- acute kidney injury secondary to above Hypercapnic/hypoxic respiratory failure in a super morbidly obese on NIPPV SABRINA, need CPAP at night Possible pickwickian syndrome CAP/atelectasis on chest x-ray History of CAD, CABG COPD flare History of sepsis/UTI History of IBS, alternating bowel movements History of alcoholism AK I on CK D/ VMN Diabetes Acute on chronic back pain-took [address] in the last 12 hours because of back pain Accel hypertension History of Present Illness History of Present Illness Patient seen and examined in ICU Spoke to nursing at bedside. Spoke with patient's daughter (teacher) at bedside Vitals Vitals Vital Signs Date Time Temp Pulse Resp B/P (MAP) Pulse Ox O2 Delivery O2 Flow Rate FiO2 09/16/18 10:00 87 22 161/73 (102) Nasal Cannula 4.0 09/16/18 08:33 97 09/16/18 08:00 98.6 98.6 Physical Exam Physical Exam GENERAL: Propped up in bed, fidgety, + mittens HEENT: Pupils are equal and reactive. Normal conjunctivae, Oral cavity pink, moist NECK: Supple - he moved from side to side. LUNGS: Decreased in the bases. HEART: S1, S2 ABDOMEN: Obese, soft, no grimace or guarding to palpation : Mary EXTREMITIES: Without clubbing, cyanosis with trace edema. SKIN: Warm to touch without generalized signs of rash. NEUROLOGIC: Confused General: Alert, mild distress, Other (confused) Heart: Regular rate, Normal S1, Normal S2, Other (distant heart tones. ) Lungs: Crackles Abdomen: Soft, Other (obese) Extremities: No edema, Normal pulses Skin: No significant lesion Labs LABS Laboratory Tests Test 09/15/18 12:30 09/15/18 17:29 09/16/18 00:31 09/16/18 04:00 Glucose (Fingerstick) 149 mg/dL (70-99) 109 mg/dL (70-99) 118 mg/dL (70-99) White Blood Count 10.8 x10^3/uL (4.0-11.0) Red Blood Count 4.53 x10^6/uL (4.30-5.70) Hemoglobin 12.8 g/dL (13.0-17.5) Hematocrit 37.9 % (39.0-53.0) Mean Corpuscular Volume 84 fL (79-100) Mean Corpuscular Hemoglobin 28 pg (25-35) Mean Corpuscular Hemoglobin Concent 34 g/dL (31-37) Red Cell Distribution Width 14.0 % (11.5-14.5) Platelet Count 275 x10^3/uL (140-400) Neutrophils (%) (Auto) 68 % (31-73) Lymphocytes (%) (Auto) 19 % (24-48) Monocytes (%) (Auto) 11 % (0-9) Eosinophils (%) (Auto) 1 % (0-3) Basophils (%) (Auto) 1 % (0-3) Neutrophils # (Auto) 7.3 x10^3uL (1.8-7.7) Lymphocytes # (Auto) 2.1 x10^3/uL (1.0-4.8) Monocytes # (Auto) 1.2 x10^3/uL (0.0-1.1) Eosinophils # (Auto) 0.1 x10^3/uL (0.0-0.7) Basophils # (Auto) 0.1 x10^3/uL (0.0-0.2) Sodium Level 139 mmol/L (136-145) Potassium Level 3.8 mmol/L (3.5-5.1) Chloride Level 103 mmol/L (98-107) Carbon Dioxide Level 26 mmol/L (21-32) Anion Gap 10 (6-14) Blood Urea Nitrogen 21 mg/dL (8-26) Creatinine 0.8 mg/dL (0.7-1.3) Estimated GFR (Cockcroft-Gault) 95.8 Glucose Level 117 mg/dL (70-99) Calcium Level 9.2 mg/dL (8.5-10.1) Test 09/16/18 06:04 Glucose (Fingerstick) 119 mg/dL (70-99) Review of Systems Review of Systems unable to obtain Assessment and Plan Assessmemt and Plan Alcohol withdrawal Rhabdomyolysis- acute kidney injury secondary to above Hypercapnic/hypoxic respiratory failure in a super morbidly obese on NIPPV SABRINA, need CPAP at night Possible pickwickian syndrome CAP/atelectasis on chest x-ray History of CAD, CABG COPD flare History of sepsis/UTI History of IBS, alternating bowel movements History of alcoholism AK I on CK D/ VMN Diabetes Acute on chronic back pain-took [address] in the last 12 hours because of back pain Accel hypertension Plan Continue ICU monitoring Off Sedation this AM Continue BiPap and Abx per pulm and ID respectively CIWA protocol for alcohol withdrawal Supportive Care Comment Review of Relevant I have reviewed the following items barby (where applicable) has been applied. Labs Laboratory Tests Test 09/14/18 11:26 09/14/18 17:32 09/14/18 23:38 09/15/18 05:00 Glucose (Fingerstick) 163 mg/dL (70-99) 142 mg/dL (70-99) 143 mg/dL (70-99) White Blood Count 8.3 x10^3/uL (4.0-11.0) Red Blood Count 4.31 x10^6/uL (4.30-5.70) Hemoglobin 12.3 g/dL (13.0-17.5) Hematocrit 35.9 % (39.0-53.0) Mean Corpuscular Volume 83 fL (79-100) Mean Corpuscular Hemoglobin 28 pg (25-35) Mean Corpuscular Hemoglobin Concent 34 g/dL (31-37) Red Cell Distribution Width 14.2 % (11.5-14.5) Platelet Count 225 x10^3/uL (140-400) Neutrophils (%) (Auto) 68 % (31-73) Lymphocytes (%) (Auto) 23 % (24-48) Monocytes (%) (Auto) 7 % (0-9) Eosinophils (%) (Auto) 1 % (0-3) Basophils (%) (Auto) 1 % (0-3) Neutrophils # (Auto) 5.6 x10^3uL (1.8-7.7) Lymphocytes # (Auto) 1.9 x10^3/uL (1.0-4.8) Monocytes # (Auto) 0.6 x10^3/uL (0.0-1.1) Eosinophils # (Auto) 0.1 x10^3/uL (0.0-0.7) Basophils # (Auto) 0.1 x10^3/uL (0.0-0.2) Sodium Level 136 mmol/L (136-145) Potassium Level 3.9 mmol/L (3.5-5.1) Chloride Level 102 mmol/L (98-107) Carbon Dioxide Level 27 mmol/L (21-32) Anion Gap 7 (6-14) Blood Urea Nitrogen 19 mg/dL (8-26) Creatinine 0.7 mg/dL (0.7-1.3) Estimated GFR (Cockcroft-Gault) 111.8 Glucose Level 139 mg/dL (70-99) Calcium Level 8.8 mg/dL (8.5-10.1) Test 09/15/18 05:10 09/15/18 12:30 09/15/18 17:29 09/16/18 00:31 Glucose (Fingerstick) 127 mg/dL (70-99) 149 mg/dL (70-99) 109 mg/dL (70-99) 118 mg/dL (70-99) Test 09/16/18 04:00 09/16/18 06:04 White Blood Count 10.8 x10^3/uL (4.0-11.0) Red Blood Count 4.53 x10^6/uL (4.30-5.70) Hemoglobin 12.8 g/dL (13.0-17.5) Hematocrit 37.9 % (39.0-53.0) Mean Corpuscular Volume 84 fL (79-100) Mean Corpuscular Hemoglobin 28 pg (25-35) Mean Corpuscular Hemoglobin Concent 34 g/dL (31-37) Red Cell Distribution Width 14.0 % (11.5-14.5) Platelet Count 275 x10^3/uL (140-400) Neutrophils (%) (Auto) 68 % (31-73) Lymphocytes (%) (Auto) 19 % (24-48) Monocytes (%) (Auto) 11 % (0-9) Eosinophils (%) (Auto) 1 % (0-3) Basophils (%) (Auto) 1 % (0-3) Neutrophils # (Auto) 7.3 x10^3uL (1.8-7.7) Lymphocytes # (Auto) 2.1 x10^3/uL (1.0-4.8) Monocytes # (Auto) 1.2 x10^3/uL (0.0-1.1) Eosinophils # (Auto) 0.1 x10^3/uL (0.0-0.7) Basophils # (Auto) 0.1 x10^3/uL (0.0-0.2) Sodium Level 139 mmol/L (136-145) Potassium Level 3.8 mmol/L (3.5-5.1) Chloride Level 103 mmol/L (98-107) Carbon Dioxide Level 26 mmol/L (21-32) Anion Gap 10 (6-14) Blood Urea Nitrogen 21 mg/dL (8-26) Creatinine 0.8 mg/dL (0.7-1.3) Estimated GFR (Cockcroft-Gault) 95.8 Glucose Level 117 mg/dL (70-99) Calcium Level 9.2 mg/dL (8.5-10.1) Glucose (Fingerstick) 119 mg/dL (70-99) Laboratory Tests Test 09/15/18 12:30 09/15/18 17:29 09/16/18 00:31 09/16/18 04:00 Glucose (Fingerstick) 149 mg/dL (70-99) 109 mg/dL (70-99) 118 mg/dL (70-99) White Blood Count 10.8 x10^3/uL (4.0-11.0) Red Blood Count 4.53 x10^6/uL (4.30-5.70) Hemoglobin 12.8 g/dL (13.0-17.5) Hematocrit 37.9 % (39.0-53.0) Mean Corpuscular Volume 84 fL (79-100) Mean Corpuscular Hemoglobin 28 pg (25-35) Mean Corpuscular Hemoglobin Concent 34 g/dL (31-37) Red Cell Distribution Width 14.0 % (11.5-14.5) Platelet Count 275 x10^3/uL (140-400) Neutrophils (%) (Auto) 68 % (31-73) Lymphocytes (%) (Auto) 19 % (24-48) Monocytes (%) (Auto) 11 % (0-9) Eosinophils (%) (Auto) 1 % (0-3) Basophils (%) (Auto) 1 % (0-3) Neutrophils # (Auto) 7.3 x10^3uL (1.8-7.7) Lymphocytes # (Auto) 2.1 x10^3/uL (1.0-4.8) Monocytes # (Auto) 1.2 x10^3/uL (0.0-1.1) Eosinophils # (Auto) 0.1 x10^3/uL (0.0-0.7) Basophils # (Auto) 0.1 x10^3/uL (0.0-0.2) Sodium Level 139 mmol/L (136-145) Potassium Level 3.8 mmol/L (3.5-5.1) Chloride Level 103 mmol/L (98-107) Carbon Dioxide Level 26 mmol/L (21-32) Anion Gap 10 (6-14) Blood Urea Nitrogen 21 mg/dL (8-26) Creatinine 0.8 mg/dL (0.7-1.3) Estimated GFR (Cockcroft-Gault) 95.8 Glucose Level 117 mg/dL (70-99) Calcium Level 9.2 mg/dL (8.5-10.1) Test 09/16/18 06:04 Glucose (Fingerstick) 119 mg/dL (70-99) Microbiology 09/09/18 Blood Culture - Final, Complete NO GROWTH AFTER 5 DAYS Medications Current Medications Thiamine Mononitrate (Vitamin B-1) 100 mg 1X STAT PO Last administered on at 14:50; Start 09/09/18 at 14:38; Stop 09/09/18 at 14:41; Status DC Folic Acid (Folic Acid) 1 mg 1X STAT PO Last administered on 09/09/18at 14:50 ; Start 09/09/18 at 14:38; Stop 09/09/18 at 14:41; Status DC Sodium Chloride 1,000 ml @ 1,000 mls/hr 1X ONCE IV Last administered on 09/09at 14:50; Start 09/09/18 at 15:00; Stop 09/09/18 at 15:59; Status DC Labetalol HCl (Normodyne Iv Push) 20 mg 1X ONCE IVP Last administered on 09/09at 16:53; Start 09/09/18 at 17:00; Stop 09/09/18 at 17:01; Status DC Chlordiazepoxide (Librium) 25 mg PRN Q6HRS PRN PO ANXIETY / AGITATION Last administered on 09/09/18at 22:35; Start 09/09/18 at 17:00; Stop 09/10/18 at 10 :35; Status DC Acetaminophen (Tylenol) 500 mg PRN Q6HRS PRN PO MILD PAIN / TEMP; Start at 17:00 Morphine Sulfate (Morphine Sulfate) 2 mg PRN Q2HR PRN IV MODERATE TO SEVERE PAIN Last administered on 09/12/18at 11:14; Start 09/09/18 at 17:00; Stop at 11:45; Status DC Sodium Chloride 1,000 ml @ 100 mls/hr Q10H IV Last administered on 09/09/18at 19:30; Start 09/09/18 at 18:00; Stop 09/10/18 at 10:35; Status DC Multivitamins (Thera M Plus) 1 tab DAILY PO ; Start 09/10/18 at 09:00; Stop at 13:13; Status DC Thiamine Mononitrate (Vitamin B-1) 100 mg DAILY PO ; Start 09/10/18 at 09:00; Stop 09/11/18 at 13:13; Status DC Folic Acid (Folic Acid) 1 mg DAILY PO ; Start 09/10/18 at 09:00; Stop at 13:13; Status DC Labetalol HCl (Normodyne Iv Push) 20 mg PRN Q2HR PRN IVP HYPERTENSION, 2ND CHOICE Last administered on 09/14/18at 20:07; Start 09/09/18 at 17:00 Nicotine (Nicoderm Cq 21mg) 1 patch PRN DAILY PRN TD SMOKING CESSATION; Start 09/09/18 at 17:15; Stop 09/11/18 at 13:13; Status DC Oxycodone/ Acetaminophen (Percocet 5/325) 1 tab PRN Q4HRS PRN PO SEVERE PAIN; Start 09/09/18 at 17:15; Stop 09/15/18 at 12:06; Status DC Diphenhydramine HCl (Benadryl) 25 mg PRN QHS PRN PO INSOMNIA; Start 09/09/18 at 17:15 Aspirin (Children'S Aspirin) 81 mg DAILYWBKFT PO ; Start 09/10/18 at 08:00; Stop 09/12/18 at 09:56; Status DC Atorvastatin Calcium (Lipitor) 40 mg QHS PO Last administered on 09/09/18at 21: 11; Start 09/09/18 at 21:00; Stop 09/12/18 at 09:56; Status DC Atorvastatin Calcium (Lipitor) 40 mg QHS PO ; Start 09/09/18 at 21:00; Status UNV Duloxetine HCl (Cymbalta) 30 mg BID PO Last administered on 09/09/18at 21:12; Start 09/09/18 at 21:00; Stop 09/11/18 at 13:13; Status DC Ferrous Sulfate (Feosol) 325 mg DAILYAC PO ; Start 09/10/18 at 07:30; Stop at 13:13; Status DC Finasteride (Proscar) 5 mg DAILY PO ; Start 09/10/18 at 09:00; Stop 09/12/18 at 09:56; Status DC Lorazepam (Ativan) 0.5 mg PRN DAILY PRN PO ANXIETY / AGITATION; Start at 17:15; Stop 09/10/18 at 10:35; Status DC Metoprolol Tartrate (Lopressor) 25 mg BID PO Last administered on 09/09/18at 21 :12; Start 09/09/18 at 21:00; Stop 09/11/18 at 13:19; Status DC Pantoprazole Sodium (Protonix) 40 mg DAILYAC PO ; Start 09/10/18 at 07:30; Stop 09/11/18 at 12:20; Status DC Tamsulosin HCl (Flomax) 0.4 mg DAILY PO ; Start 09/10/18 at 09:00; Stop at 09:56; Status DC Tramadol HCl (Ultram) 50 mg PRN Q6HRS PRN PO MODERATE PAIN; Start 09/09/18 at 17:15; Stop 09/15/18 at 12:06; Status DC Budesonide (Pulmicort) 0.5 mg RTBID NEB Last administered on 09/12/18at 07:47; Start 09/09/18 at 20:00; Stop 09/12/18 at 11:45; Status DC Diltiazem HCl (Cardizem 24hr Cd) 120 mg DAILY PO ; Start 09/10/18 at 09:00; Stop 09/11/18 at 13:13; Status DC Insulin Glargine (Lantus) 10 units QHS SQ Last administered on 09/09/18at 21:49 ; Start 09/09/18 at 21:00; Stop 09/10/18 at 10:35; Status DC Levothyroxine Sodium (Synthroid) 50 mcg DAILY06 PO ; Start 09/10/18 at 06:00; Stop 09/12/18 at 09:56; Status DC Lidocaine (Lidoderm) 1 patch DAILY TD Last administered on 09/16/18at 08:16; Start 09/10/18 at 09:00 Lisinopril (Prinivil) 2.5 mg DAILY PO ; Start 09/10/18 at 09:00; Stop at 13:13; Status DC Non-Formulary Medication (Tiotropium [place] (Spiriva)) 2 inh DAILY IH ; Start 09/10/18 at 09:00; Status UNV Warfarin Sodium (Coumadin) 7.5 mg DAILY16 PO ; Start 09/09/18 at 18:00; Stop 09/10/18 at 16:34; Status DC Insulin Human Lispro (HumaLOG) 0-9 UNITS TIDWMEALS SQ ; Start 09/10/18 at 08:00 ; Stop 09/11/18 at 13:13; Status DC Dextrose (Dextrose 50%-Water Syringe) 12.5 gm PRN Q15MIN PRN IV SEE COMMENTS; Start 09/09/18 at 17:15; Stop 09/12/18 at 08:17; Status DC Miscellaneous (Lidoderm Patch Removal) 1 ea QHS MC Last administered on at 21:00; Start 09/09/18 at 21:00 Albuterol/ Ipratropium (Duoneb) 3 ml RTQID NEB Last administered on 09/16/18at 08:33; Start 09/09/18 at 20:00 Warfarin Sodium (Coumadin Per Physician) 1 each PRN DAILY PRN MC SEE COMMENTS Last administered on 09/11/18at 11:21; Start 09/09/18 at 17:30; Stop 09/11/18 at 13:13; Status DC Sodium Chloride 1,000 ml @ 75 mls/hr [id number] IV ; Start 09/09/18 at 17:30; Stop 09/10/18 at 10:35; Status DC Lorazepam (Ativan) 2 mg 1X ONCE IV Last administered on 09/09/18at 17:30; Start 09/09/18 at 17:30; Stop 09/09/18 at 17:31; Status DC Clonidine HCl (Catapres) 0.1 mg PRN Q1HR PRN PO SBP > 180 or DBP > 100, MRX3; Start 09/09/18 at 17:30 Lorazepam (Ativan) 2 mg PRN Q15MIN PRN IV CIWA 8-14 Last administered on at 20:38; Start 09/09/18 at 17:30; Stop 09/15/18 at 12:06; Status DC Albuterol/ Ipratropium (Duoneb) 3 ml 1X ONCE NEB ; Start 09/09/18 at 17:30; Stop 09/09/18 at 17:31; Status DC Levofloxacin/ Dextrose 150 ml @ 100 mls/hr 1X ONCE IV Last administered on at 21:03; Start 09/09/18 at 17:30; Stop 09/09/18 at 18:59; Status DC Albuterol/ Ipratropium (Duoneb) 3 ml RTQID NEB ; Start 09/09/18 at 20:00; Status UNV Guaifenesin (Robitussin Dm) 10 ml PRN Q6HRS PRN PO COUGH; Start 09/09/18 at 19 :00 Levofloxacin/ Dextrose (Levaquin Per Pharmacy) 1 each PRN DAILY PRN MC SEE COMMENTS; Start 09/09/18 at 19:00; Stop 09/11/18 at 09:24; Status DC Heparin Sodium (Porcine) (Heparin Sodium) 5,000 unit Q8HRS SQ Last administered on 09/11/18at 05:48; Start 09/09/18 at 22:00; Stop 09/12/18 at 11 :01; Status DC Levofloxacin/ Dextrose 50 ml @ 50 mls/hr Q24H IV ; Start 09/10/18 at 20:00; Stop 09/10/18 at 20:00; Status DC Haloperidol Lactate (Haldol Inj) 5 mg PRN Q6HRS PRN IVP AGITATION Last administered on 09/15/18at 23:00; Start 09/10/18 at 01:15 Famotidine (Pepcid Vial) 20 mg QHS IVP Last administered on 09/12/18at 20:47; Start 09/10/18 at 21:00; Stop 09/13/18 at 08:50; Status DC Methylprednisolone Sodium Succinate (SOLU-Medrol 40MG VIAL) 40 mg Q12HR IV Last administered on 09/14/18at 08:24; Start 09/10/18 at 09:00; Stop 09/14/18 at 12:49; Status DC Chlordiazepoxide (Librium) 50 mg PRN Q6HRS PRN PO ANXIETY/AGITATION, 2ND CHOICE ; Start 09/10/18 at 10:45 Lorazepam (Ativan) 1 mg PRN DAILY PRN PO ANXIETY / AGITATION, 1ST CHOIC; Start 09/10/18 at 10:45; Stop 09/15/18 at 12:06; Status DC Dexmedetomidine HCl 200 mcg/ Sodium Chloride 50 ml @ 0 mls/hr CONT PRN IV PER PROTOCOL Last administered on 09/15/18at 09:03; Start 09/10/18 at 13:30; Stop 09/15/18 at 12:06; Status DC Sodium Chloride 500 ml @ 500 mls/hr 1X PRN PRN IV SEE COMMENTS; Start at 13:30 Atropine Sulfate (ATROPINE 0.5mg SYRINGE) 0.5 mg PRN Q5MIN PRN IV SEE COMMENTS ; Start 09/10/18 at 13:30; Stop 09/12/18 at 13:15; Status DC Levofloxacin/ Dextrose 100 ml @ 100 mls/hr Q24H IV Last administered on at 20:48; Start 09/10/18 at 20:00; Stop 09/11/18 at 09:36; Status DC Enalaprilat (Vasotec Inj) 1.25 mg PRN Q4HRS PRN IVP HYPERTENSION, 1ST CHOICE Last administered on 09/13/18at 18:23; Start 09/11/18 at 02:45 Vancomycin HCl (Vanco Per Pharmacy) 1 each PRN DAILY PRN MC SEE COMMENTS Last administered on 09/14/18at 12:16; Start 09/11/18 at 09:15; Stop 09/15/18 at 10 :49; Status DC Vancomycin HCl 2 gm/Sodium Chloride 500 ml @ 250 mls/hr 1X ONCE IV Last administered on 09/11/18at 10:40; Start 09/11/18 at 09:30; Stop 09/11/18 at 11 :29; Status DC Doxycycline Hyclate (Vibra-Tab) 100 mg BID PO ; Start 09/11/18 at 10:00; Stop 09/11/18 at 15:16; Status DC Cefepime HCl (Maxipime) 1 gm Q8H IVP Last administered on 09/16/18at 10:16; Start 09/11/18 at 10:00 Vancomycin HCl 1.75 gm/Sodium Chloride 500 ml @ 250 mls/hr Q12H IV Last administered on 09/12/18at 22:58; Start 09/11/18 at 23:00; Stop 09/12/18 at 23 :59; Status DC Vancomycin HCl (Vancomycin Trough Level) 1 each 1X ONCE MC Last administered on 09/12/18at 22:26; Start 09/12/18 at 22:30; Stop 09/12/18 at 22:31; Status DC Pantoprazole Sodium (PROTONIX VIAL for IV PUSH) 40 mg DAILYAC IVP Last administered on 09/16/18at 08:15; Start 09/11/18 at 12:30 Multivitamins 10 ml/Thiamine HCl 100 mg/Folic Acid 1 mg/Sodium Chloride 1,011.2 ml @ 0 mls/hr DAILY IV Last administered on 09/16/18at 08:17; Start 09/11/18 at 14:00 Insulin Human Lispro (HumaLOG) 0-7 UNITS TIDWMEALS SQ ; Start 09/11/18 at 17:00 ; Stop 09/11/18 at 17:00; Status DC Dextrose (Dextrose 50%-Water Syringe) 12.5 gm PRN Q15MIN PRN IV SEE COMMENTS; Start 09/11/18 at 13:00 Insulin Human Lispro (HumaLOG) 0-7 UNITS Q6HRS SQ Last administered on at 05:41; Start 09/11/18 at 18:00 Levothyroxine Sodium 0.025 mcg/ Sodium Chloride 5 ml @ 0 mls/hr DAILY IVP ; Start 09/11/18 at 13:30; Stop 09/11/18 at 13:52; Status DC Magnesium Sulfate 50 ml @ 25 mls/hr 1X ONCE IV Last administered on at 15:40; Start 09/11/18 at 13:30; Stop 09/11/18 at 15:29; Status DC Levothyroxine Sodium 25 mcg/ Sodium Chloride 5 ml @ 0 mls/hr DAILY IVP Last administered on 09/16/18at 08:19; Start 09/11/18 at 13:52 Levothyroxine Sodium 25 mcg/ Sodium Chloride 5 ml @ 0 mls/hr 1X ONCE IVP Last administered on 09/11/18at 14:45; Start 09/11/18 at 14:45; Stop 09/11/18 at 14 :46; Status DC Doxycycline Hyclate 100 mg/ Dextrose 100 ml @ 50 mls/hr Q12HR IV Last administered on 09/16/18at 08:17; Start 09/11/18 at 16:00 Magnesium Sulfate 50 ml @ 25 mls/hr 1X ONCE IV Last administered on at 12:56; Start 09/12/18 at 11:30; Stop 09/12/18 at 13:29; Status DC Amino Acids/ Glycerin/ Electrolytes 1,000 ml @ 50 mls/hr Q20H IV Last administered on 09/15/18at 21:38; Start 09/12/18 at 11:30 Haloperidol Lactate (Haldol Inj) 10 mg Q8HRS IVP Last administered on at 06:02; Start 09/12/18 at 14:00 Dexmedetomidine HCl 200 mcg/ Sodium Chloride 50 ml @ 0 mls/hr CONT PRN IV PER PROTOCOL; Start 09/12/18 at 13:15; Stop 09/12/18 at 14:04; Status DC Sodium Chloride 500 ml @ 500 mls/hr 1X PRN PRN IV SEE COMMENTS; Start at 13:15 Atropine Sulfate (ATROPINE 0.5mg SYRINGE) 0.5 mg PRN Q5MIN PRN IV SEE COMMENTS ; Start 09/12/18 at 13:15 Morphine Sulfate (Morphine Sulfate) 2 mg PRN Q2HR PRN IV PAIN Last administered on 09/14/18at 05:10; Start 09/12/18 at 13:15; Stop 09/14/18 at 12 :57; Status DC Metoprolol Tartrate (Lopressor) 25 mg BID PO ; Start 09/12/18 at 17:00; Stop 09/12/18 at 17:00; Status DC Metoprolol Tartrate (Lopressor Vial) 5 mg Q6HRS IVP Last administered on 06:03; Start 09/12/18 at 18:00 Vancomycin HCl 2 gm/Sodium Chloride 500 ml @ 250 mls/hr Q12H IV Last administered on 09/14/18 23:26; Start 09/13/18 at 11:00; Stop 09/15/18 at 10 :49; Status DC Vancomycin HCl (Vancomycin Trough Level) 1 each 1X ONCE MC Last administered on 09/14/18at 10:30; Start 09/14/18 at 10:30; Stop 09/14/18 at 10:31; Status DC Nitroglycerin (Nitro-Bid Oint) 1 inch Q6HRS TP Last administered on 09/15/18at 17:33; Start 09/14/18 at 08:30 Aspirin (Aspirin) 300 mg DAILY ND Last administered on 09/16/18at 08:20; Start 09/14/18 at 11:00 Methylprednisolone Sodium Succinate (SOLU-Medrol 40MG VIAL) 40 mg DAILY IV Last administered on 09/16/18at 08:15; Start 09/15/18 at 09:00 Morphine Sulfate (Morphine Sulfate) 2 mg PRN Q2HR PRN IV PAIN Last administered on 09/16/18at 00:40; Start 09/14/18 at 13:00 Lorazepam (Ativan) 2 mg PRN Q4HRS PRN IV ANXIETY / AGITATION Last administered on 09/15/18at 23:00; Start 09/15/18 at 22:45 Active Scripts Active Pantoprazole Sodium 40 Mg Tablet.dr 40 Mg PO DAILYAC Lidoderm (Lidocaine) 700 Mg Adh..patch 1 Patch TD DAILY 12hours on, 12 hours off Lisinopril 2.5 Mg Tablet 2.5 Mg PO DAILY Feosol (Ferrous Sulfate) 325 Mg Tablet 325 Mg PO DAILYAC Children's Aspirin (Aspirin) 81 Mg Tab.chew 81 Mg PO DAILYWBKFT Reported Ventolin Hfa Inhaler (Albuterol Sulfate) 18 Gm Hfa.aer.ad 2 Puff INH Q4HRS Mirtazapine 45 Mg Tablet 1 Tab PO QHS Glipizide 5 Mg Tablet 1 Tab PO BID Metformin Hcl 1,000 Mg Tablet 1,000 Mg PO BIDWMEALS Lantus (Insulin Glargine,Hum.rec.anlog) 100 Unit/1 Ml Vial 50 Unit SQ HS NITROGLYCERIN SubLingual (Nitroglycerin) 0.4 Mg Tab.subl 0.4 Mg SL PRN Q5MIN PRN Fluoxetine Hcl 20 Mg Capsule 3 Cap PO DAILY Novolin R (Insulin Regular, Human) 100 Unit/1 Ml Vial 100 Unit IJ QIDACHS Vitamin D3 (Cholecalciferol (Vitamin D3)) 1,000 Unit Tablet 1 Tab PO TID Vitamin B-12 (Cyanocobalamin (Vitamin B-12)) 1,000 Mcg Tablet 1 Tab PO DAILY Gemfibrozil 600 Mg Tablet 0.5 Tab PO BID Pepcid (Famotidine) 20 Mg Tablet 10 Mg PO BID Cardizem Cd (Diltiazem Hcl) 240 Mg Cap.er.24h 1 Cap PO DAILY Robaxin (Methocarbamol) 500 Mg Tablet 1 Tab PO BID PRN Niaspan (Niacin) 500 Mg Tab.er.24h 1 Tab PO QHS Gabapentin 600 Mg Tablet 300 Mg PO QID Symbicort 80-4.5 Mcg Inhaler (Budesonide/Formoterol Fumarate) 10.2 Gm Hfa.aer.ad 2 Puff IH BID Finasteride 5 Mg Tablet 1 Tab PO DAILY Levothyroxine Sodium 50 Mcg Tablet 1 Tab PO DAILY Tamsulosin Hcl 0.4 Mg Cap.er.24h 0.4 Mg PO BID Spiriva (Tiotropium [place]) 18 Mcg Cap.w.dev 2 Inh IH DAILY Hydrocodone-Apap 7.5-325 (Hydrocodone Bit/Acetaminophen) 1 Each Tablet 1 Tab PO Q4HRS PRN Metoprolol Tartrate 25 Mg Tablet 1 Tab PO BID Vitals/I & O Vital Sign - Last 24 Hours 09/15/18 09/15/18 09/15/18 09/15/18 10:53 11:00 12:00 12:00 Pulse 54 70 Resp 20 24 B/P (MAP) 142/71 (94) 111/62 (78) Pulse Ox 97 95 92 O2 Delivery BiPAP/CPAP BiPAP/CPAP Bi-pap Nasal Cannula O2 Flow Rate 2.0 09/15/18 09/15/18 09/15/18 09/15/18 12:00 12:37 12:38 13:00 Pulse 75 77 76 Resp 22 B/P (MAP) 117/56 117/56 133/89 (104) Pulse Ox 97 O2 Delivery Nasal Cannula O2 Flow Rate 4.0 2.0 09/15/18 09/15/18 09/15/18 09/15/18 14:00 14:09 15:00 16:00 Pulse 76 72 Resp 20 B/P (MAP) 138/80 (99) 136/77 (96) Pulse Ox 93 93 94 O2 Delivery Nasal Cannula Nasal Cannula Room Air O2 Flow Rate 2.0 2.0 4.0 09/15/18 09/15/18 09/15/18 09/15/18 16:00 16:00 16:07 16:36 Temp 98.3 98.3 Pulse 85 Resp B/P (MAP) 113/80 (91) Pulse Ox 92 95 94 O2 Delivery Bi-pap Room Air Room Air Nasal Cannula O2 Flow Rate 5.0 09/15/18 09/15/18 09/15/18 09/15/18 17:00 17:33 17:34 18:00 Pulse 104 104 104 94 Resp 24 B/P (MAP) 104/72 (83) 104/72 104/72 119/92 (101) Pulse Ox 91 96 O2 Delivery Room Air Room Air 09/15/18 09/15/18 09/15/18 09/15/18 19:00 19:43 20:00 20:00 Temp 98.5 98.5 Pulse 107 103 Resp 22 B/P (MAP) 142/108 (119) 140/95 (110) Pulse Ox 94 94 95 O2 Delivery Room Air Nasal Cannula Room Air O2 Flow Rate 5.0 4.0 09/15/18 09/15/18 09/15/18 09/15/18 20:00 21:00 21:39 22:00 Pulse 102 114 Resp B/P (MAP) 174/100 (124) 126/80 (95) Pulse Ox 94 94 95 O2 Delivery Bi-pap Room Air Nasal Cannula Room Air O2 Flow Rate 2.0 09/15/18 09/15/18 09/16/18 09/16/18 23:00 23:59 00:00 00:00 Temp 98.7 98.7 Pulse 116 114 116 Resp 27 31 B/P (MAP) 115/62 (79) 117/72 132/78 (96) Pulse Ox 94 95 O2 Delivery Room Air Bi-pap Room Air 09/16/18 09/16/18 09/16/18 09/16/18 00:00 00:40 01:00 01:10 Pulse 114 Resp B/P (MAP) 117/72 (87) Pulse Ox 95 94 96 O2 Delivery Nasal Cannula Room Air Nasal Cannula O2 Flow Rate 4.0 3.0 4.0 09/16/18 09/16/18 09/16/18 09/16/18 02:00 02:15 03:00 04:00 Pulse 114 118 99 Resp 24 B/P (MAP) 145/79 (101) 145/79 142/73 (96) Pulse Ox 95 98 O2 Delivery Room Air Nasal Cannula O2 Flow Rate 4.0 4.0 09/16/18 09/16/18 09/16/18 09/16/18 04:00 04:00 05:00 06:00 Temp 98.1 98.1 Pulse 98 103 84 Resp B/P (MAP) 108/70 (83) 161/85 (110) 81/45 Pulse Ox 95 97 O2 Delivery Bi-pap Nasal Cannula Nasal Cannula O2 Flow Rate 4.0 4.0 09/16/18 09/16/18 09/16/18 09/16/18 06:00 06:03 07:00 08:00 Pulse 83 100 82 Resp 17 23 B/P (MAP) 151/80 (103) 151/80 118/73 (88) Pulse Ox 94 O2 Delivery Nasal Cannula Nasal Cannula Bi-pap O2 Flow Rate 4.0 4.0 09/16/18 09/16/18 09/16/18 09/16/18 08:00 08:00 08:33 09:00 Temp 98.6 98.6 Pulse 94 86 Resp 20 23 B/P (MAP) 152/98 (116) 135/80 (98) Pulse Ox 97 O2 Delivery Nasal Cannula Nasal Cannula Nasal Cannula O2 Flow Rate 4.0 4.0 4.0 4.0 09/16/18 10:00 Pulse 87 Resp 22 B/P (MAP) 161/73 (102) O2 Delivery Nasal Cannula O2 Flow Rate 4.0 Intake and Output 09/15/18 09/15/18 09/16/18 15:01 23:01 07:01 Intake Total 100 ml 1131 ml 798 ml Output Total 1310 ml 1275 ml 560 ml Balance -1210 ml -144 ml 238 ml SAURABH DOTSON III DO Sep 16, 2018 10:55
--- NOTE | 2018-09-16 12:39 | PDOC ---
PROGRESS NOTES Assessment Problems Medical Problems: (1) Acute kidney injury Status: Acute (2) Alcohol withdrawal Status: Acute (3) Pneumonia Status: Acute (4) Rhabdomyolysis Status: Acute Toxic encephalopathy due to narcotics. Hypertensive encephalopathy. Alcohol intoxication and component of Wernicke's. Brain MRI negative Plan EEG next week Discussed with daughter Subjective no complaints Objective Vital Signs Date Time Temp Pulse Resp B/P (MAP) Pulse Ox O2 Delivery O2 Flow Rate FiO2 09/16/18 10:00 87 22 161/73 (102) Nasal Cannula 4.0 09/16/18 08:33 97 09/16/18 08:00 98.6 98.6 Intake and Output 09/16/18 07:01 Intake Total 2029 ml Output Total 3145 ml Balance -1116 ml IV Total 2029 ml Output Urine Total 3145 ml PHYSICAL EXAM Alert. Oriented to person only, does not follow commands. PERRL. EOMI. CN: no focal findings. Muscle tone: normal. Muscle strength: Moves all extremities DTR: 1+ Plantar reflex: Flexor Gait: not examined in bed. Sensory exam: no abnormal findings. Cerebellar: Not cooperative Review of Relevant I have reviewed the following items barby (where applicable) has been applied. Labs Laboratory Tests Test 09/14/18 17:32 09/14/18 23:38 09/15/18 05:00 09/15/18 05:10 Glucose (Fingerstick) 142 mg/dL (70-99) 143 mg/dL (70-99) 127 mg/dL (70-99) White Blood Count 8.3 x10^3/uL (4.0-11.0) Red Blood Count 4.31 x10^6/uL (4.30-5.70) Hemoglobin 12.3 g/dL (13.0-17.5) Hematocrit 35.9 % (39.0-53.0) Mean Corpuscular Volume 83 fL (79-100) Mean Corpuscular Hemoglobin 28 pg (25-35) Mean Corpuscular Hemoglobin Concent 34 g/dL (31-37) Red Cell Distribution Width 14.2 % (11.5-14.5) Platelet Count 225 x10^3/uL (140-400) Neutrophils (%) (Auto) 68 % (31-73) Lymphocytes (%) (Auto) 23 % (24-48) Monocytes (%) (Auto) 7 % (0-9) Eosinophils (%) (Auto) 1 % (0-3) Basophils (%) (Auto) 1 % (0-3) Neutrophils # (Auto) 5.6 x10^3uL (1.8-7.7) Lymphocytes # (Auto) 1.9 x10^3/uL (1.0-4.8) Monocytes # (Auto) 0.6 x10^3/uL (0.0-1.1) Eosinophils # (Auto) 0.1 x10^3/uL (0.0-0.7) Basophils # (Auto) 0.1 x10^3/uL (0.0-0.2) Sodium Level 136 mmol/L (136-145) Potassium Level 3.9 mmol/L (3.5-5.1) Chloride Level 102 mmol/L (98-107) Carbon Dioxide Level 27 mmol/L (21-32) Anion Gap 7 (6-14) Blood Urea Nitrogen 19 mg/dL (8-26) Creatinine 0.7 mg/dL (0.7-1.3) Estimated GFR (Cockcroft-Gault) 111.8 Glucose Level 139 mg/dL (70-99) Calcium Level 8.8 mg/dL (8.5-10.1) Test 09/15/18 12:30 09/15/18 17:29 09/16/18 00:31 09/16/18 04:00 Glucose (Fingerstick) 149 mg/dL (70-99) 109 mg/dL (70-99) 118 mg/dL (70-99) White Blood Count 10.8 x10^3/uL (4.0-11.0) Red Blood Count 4.53 x10^6/uL (4.30-5.70) Hemoglobin 12.8 g/dL (13.0-17.5) Hematocrit 37.9 % (39.0-53.0) Mean Corpuscular Volume 84 fL (79-100) Mean Corpuscular Hemoglobin 28 pg (25-35) Mean Corpuscular Hemoglobin Concent 34 g/dL (31-37) Red Cell Distribution Width 14.0 % (11.5-14.5) Platelet Count 275 x10^3/uL (140-400) Neutrophils (%) (Auto) 68 % (31-73) Lymphocytes (%) (Auto) 19 % (24-48) Monocytes (%) (Auto) 11 % (0-9) Eosinophils (%) (Auto) 1 % (0-3) Basophils (%) (Auto) 1 % (0-3) Neutrophils # (Auto) 7.3 x10^3uL (1.8-7.7) Lymphocytes # (Auto) 2.1 x10^3/uL (1.0-4.8) Monocytes # (Auto) 1.2 x10^3/uL (0.0-1.1) Eosinophils # (Auto) 0.1 x10^3/uL (0.0-0.7) Basophils # (Auto) 0.1 x10^3/uL (0.0-0.2) Sodium Level 139 mmol/L (136-145) Potassium Level 3.8 mmol/L (3.5-5.1) Chloride Level 103 mmol/L (98-107) Carbon Dioxide Level 26 mmol/L (21-32) Anion Gap 10 (6-14) Blood Urea Nitrogen 21 mg/dL (8-26) Creatinine 0.8 mg/dL (0.7-1.3) Estimated GFR (Cockcroft-Gault) 95.8 Glucose Level 117 mg/dL (70-99) Calcium Level 9.2 mg/dL (8.5-10.1) Test 09/16/18 06:04 Glucose (Fingerstick) 119 mg/dL (70-99) Laboratory Tests Test 09/15/18 17:29 09/16/18 00:31 09/16/18 04:00 09/16/18 06:04 Glucose (Fingerstick) 109 mg/dL (70-99) 118 mg/dL (70-99) 119 mg/dL (70-99) White Blood Count 10.8 x10^3/uL (4.0-11.0) Red Blood Count 4.53 x10^6/uL (4.30-5.70) Hemoglobin 12.8 g/dL (13.0-17.5) Hematocrit 37.9 % (39.0-53.0) Mean Corpuscular Volume 84 fL (79-100) Mean Corpuscular Hemoglobin 28 pg (25-35) Mean Corpuscular Hemoglobin Concent 34 g/dL (31-37) Red Cell Distribution Width 14.0 % (11.5-14.5) Platelet Count 275 x10^3/uL (140-400) Neutrophils (%) (Auto) 68 % (31-73) Lymphocytes (%) (Auto) 19 % (24-48) Monocytes (%) (Auto) 11 % (0-9) Eosinophils (%) (Auto) 1 % (0-3) Basophils (%) (Auto) 1 % (0-3) Neutrophils # (Auto) 7.3 x10^3uL (1.8-7.7) Lymphocytes # (Auto) 2.1 x10^3/uL (1.0-4.8) Monocytes # (Auto) 1.2 x10^3/uL (0.0-1.1) Eosinophils # (Auto) 0.1 x10^3/uL (0.0-0.7) Basophils # (Auto) 0.1 x10^3/uL (0.0-0.2) Sodium Level 139 mmol/L (136-145) Potassium Level 3.8 mmol/L (3.5-5.1) Chloride Level 103 mmol/L (98-107) Carbon Dioxide Level 26 mmol/L (21-32) Anion Gap 10 (6-14) Blood Urea Nitrogen 21 mg/dL (8-26) Creatinine 0.8 mg/dL (0.7-1.3) Estimated GFR (Cockcroft-Gault) 95.8 Glucose Level 117 mg/dL (70-99) Calcium Level 9.2 mg/dL (8.5-10.1) Microbiology 09/09/18 Blood Culture - Final, Complete NO GROWTH AFTER 5 DAYS Medications Current Medications Thiamine Mononitrate (Vitamin B-1) 100 mg 1X STAT PO Last administered on at 14:50; Start 09/09/18 at 14:38; Stop 09/09/18 at 14:41; Status DC Folic Acid (Folic Acid) 1 mg 1X STAT PO Last administered on 09/09/18at 14:50 ; Start 09/09/18 at 14:38; Stop 09/09/18 at 14:41; Status DC Sodium Chloride 1,000 ml @ 1,000 mls/hr 1X ONCE IV Last administered on 09/09at 14:50; Start 09/09/18 at 15:00; Stop 09/09/18 at 15:59; Status DC Labetalol HCl (Normodyne Iv Push) 20 mg 1X ONCE IVP Last administered on 09/09at 16:53; Start 09/09/18 at 17:00; Stop 09/09/18 at 17:01; Status DC Chlordiazepoxide (Librium) 25 mg PRN Q6HRS PRN PO ANXIETY / AGITATION Last administered on 09/09/18at 22:35; Start 09/09/18 at 17:00; Stop 09/10/18 at 10 :35; Status DC Acetaminophen (Tylenol) 500 mg PRN Q6HRS PRN PO MILD PAIN / TEMP; Start at 17:00 Morphine Sulfate (Morphine Sulfate) 2 mg PRN Q2HR PRN IV MODERATE TO SEVERE PAIN Last administered on 09/12/18at 11:14; Start 09/09/18 at 17:00; Stop at 11:45; Status DC Sodium Chloride 1,000 ml @ 100 mls/hr Q10H IV Last administered on 09/09/18at 19:30; Start 09/09/18 at 18:00; Stop 09/10/18 at 10:35; Status DC Multivitamins (Thera M Plus) 1 tab DAILY PO ; Start 09/10/18 at 09:00; Stop at 13:13; Status DC Thiamine Mononitrate (Vitamin B-1) 100 mg DAILY PO ; Start 09/10/18 at 09:00; Stop 09/11/18 at 13:13; Status DC Folic Acid (Folic Acid) 1 mg DAILY PO ; Start 09/10/18 at 09:00; Stop at 13:13; Status DC Labetalol HCl (Normodyne Iv Push) 20 mg PRN Q2HR PRN IVP HYPERTENSION, 2ND CHOICE Last administered on 09/14/18at 20:07; Start 09/09/18 at 17:00 Nicotine (Nicoderm Cq 21mg) 1 patch PRN DAILY PRN TD SMOKING CESSATION; Start 09/09/18 at 17:15; Stop 09/11/18 at 13:13; Status DC Oxycodone/ Acetaminophen (Percocet 5/325) 1 tab PRN Q4HRS PRN PO SEVERE PAIN; Start 09/09/18 at 17:15; Stop 09/15/18 at 12:06; Status DC Diphenhydramine HCl (Benadryl) 25 mg PRN QHS PRN PO INSOMNIA; Start 09/09/18 at 17:15 Aspirin (Children'S Aspirin) 81 mg DAILYWBKFT PO ; Start 09/10/18 at 08:00; Stop 09/12/18 at 09:56; Status DC Atorvastatin Calcium (Lipitor) 40 mg QHS PO Last administered on 09/09/18at 21: 11; Start 09/09/18 at 21:00; Stop 09/12/18 at 09:56; Status DC Atorvastatin Calcium (Lipitor) 40 mg QHS PO ; Start 09/09/18 at 21:00; Status UNV Duloxetine HCl (Cymbalta) 30 mg BID PO Last administered on 09/09/18at 21:12; Start 09/09/18 at 21:00; Stop 09/11/18 at 13:13; Status DC Ferrous Sulfate (Feosol) 325 mg DAILYAC PO ; Start 09/10/18 at 07:30; Stop at 13:13; Status DC Finasteride (Proscar) 5 mg DAILY PO ; Start 09/10/18 at 09:00; Stop 09/12/18 at 09:56; Status DC Lorazepam (Ativan) 0.5 mg PRN DAILY PRN PO ANXIETY / AGITATION; Start at 17:15; Stop 09/10/18 at 10:35; Status DC Metoprolol Tartrate (Lopressor) 25 mg BID PO Last administered on 09/09/18at 21 :12; Start 09/09/18 at 21:00; Stop 09/11/18 at 13:19; Status DC Pantoprazole Sodium (Protonix) 40 mg DAILYAC PO ; Start 09/10/18 at 07:30; Stop 09/11/18 at 12:20; Status DC Tamsulosin HCl (Flomax) 0.4 mg DAILY PO ; Start 09/10/18 at 09:00; Stop at 09:56; Status DC Tramadol HCl (Ultram) 50 mg PRN Q6HRS PRN PO MODERATE PAIN; Start 09/09/18 at 17:15; Stop 09/15/18 at 12:06; Status DC Budesonide (Pulmicort) 0.5 mg RTBID NEB Last administered on 09/12/18at 07:47; Start 09/09/18 at 20:00; Stop 09/12/18 at 11:45; Status DC Diltiazem HCl (Cardizem 24hr Cd) 120 mg DAILY PO ; Start 09/10/18 at 09:00; Stop 09/11/18 at 13:13; Status DC Insulin Glargine (Lantus) 10 units QHS SQ Last administered on 09/09/18at 21:49 ; Start 09/09/18 at 21:00; Stop 09/10/18 at 10:35; Status DC Levothyroxine Sodium (Synthroid) 50 mcg DAILY06 PO ; Start 09/10/18 at 06:00; Stop 09/12/18 at 09:56; Status DC Lidocaine (Lidoderm) 1 patch DAILY TD Last administered on 09/16/18at 08:16; Start 09/10/18 at 09:00 Lisinopril (Prinivil) 2.5 mg DAILY PO ; Start 09/10/18 at 09:00; Stop at 13:13; Status DC Non-Formulary Medication (Tiotropium Ira (Spiriva)) 2 inh DAILY IH ; Start 09/10/18 at 09:00; Status UNV Warfarin Sodium (Coumadin) 7.5 mg DAILY16 PO ; Start 09/09/18 at 18:00; Stop 09/10/18 at 16:34; Status DC Insulin Human Lispro (HumaLOG) 0-9 UNITS TIDWMEALS SQ ; Start 09/10/18 at 08:00 ; Stop 09/11/18 at 13:13; Status DC Dextrose (Dextrose 50%-Water Syringe) 12.5 gm PRN Q15MIN PRN IV SEE COMMENTS; Start 09/09/18 at 17:15; Stop 09/12/18 at 08:17; Status DC Miscellaneous (Lidoderm Patch Removal) 1 ea QHS MC Last administered on at 21:00; Start 09/09/18 at 21:00 Albuterol/ Ipratropium (Duoneb) 3 ml RTQID NEB Last administered on 09/16/18at 08:33; Start 09/09/18 at 20:00 Warfarin Sodium (Coumadin Per Physician) 1 each PRN DAILY PRN MC SEE COMMENTS Last administered on 09/11/18at 11:21; Start 09/09/18 at 17:30; Stop 09/11/18 at 13:13; Status DC Sodium Chloride 1,000 ml @ 75 mls/hr [id number] IV ; Start 09/09/18 at 17:30; Stop 09/10/18 at 10:35; Status DC Lorazepam (Ativan) 2 mg 1X ONCE IV Last administered on 09/09/18at 17:30; Start 09/09/18 at 17:30; Stop 09/09/18 at 17:31; Status DC Clonidine HCl (Catapres) 0.1 mg PRN Q1HR PRN PO SBP > 180 or DBP > 100, MRX3; Start 09/09/18 at 17:30 Lorazepam (Ativan) 2 mg PRN Q15MIN PRN IV CIWA 8-14 Last administered on at 20:38; Start 09/09/18 at 17:30; Stop 09/15/18 at 12:06; Status DC Albuterol/ Ipratropium (Duoneb) 3 ml 1X ONCE NEB ; Start 09/09/18 at 17:30; Stop 09/09/18 at 17:31; Status DC Levofloxacin/ Dextrose 150 ml @ 100 mls/hr 1X ONCE IV Last administered on at 21:03; Start 09/09/18 at 17:30; Stop 09/09/18 at 18:59; Status DC Albuterol/ Ipratropium (Duoneb) 3 ml RTQID NEB ; Start 09/09/18 at 20:00; Status UNV Guaifenesin (Robitussin Dm) 10 ml PRN Q6HRS PRN PO COUGH; Start 09/09/18 at 19 :00 Levofloxacin/ Dextrose (Levaquin Per Pharmacy) 1 each PRN DAILY PRN MC SEE COMMENTS; Start 09/09/18 at 19:00; Stop 09/11/18 at 09:24; Status DC Heparin Sodium (Porcine) (Heparin Sodium) 5,000 unit Q8HRS SQ Last administered on 09/11/18at 05:48; Start 09/09/18 at 22:00; Stop 09/12/18 at 11 :01; Status DC Levofloxacin/ Dextrose 50 ml @ 50 mls/hr Q24H IV ; Start 09/10/18 at 20:00; Stop 09/10/18 at 20:00; Status DC Haloperidol Lactate (Haldol Inj) 5 mg PRN Q6HRS PRN IVP AGITATION Last administered on 09/15/18at 23:00; Start 09/10/18 at 01:15 Famotidine (Pepcid Vial) 20 mg QHS IVP Last administered on 09/12/18at 20:47; Start 09/10/18 at 21:00; Stop 09/13/18 at 08:50; Status DC Methylprednisolone Sodium Succinate (SOLU-Medrol 40MG VIAL) 40 mg Q12HR IV Last administered on 09/14/18at 08:24; Start 09/10/18 at 09:00; Stop 09/14/18 at 12:49; Status DC Chlordiazepoxide (Librium) 50 mg PRN Q6HRS PRN PO ANXIETY/AGITATION, 2ND CHOICE ; Start 09/10/18 at 10:45 Lorazepam (Ativan) 1 mg PRN DAILY PRN PO ANXIETY / AGITATION, 1ST CHOIC; Start 09/10/18 at 10:45; Stop 09/15/18 at 12:06; Status DC Dexmedetomidine HCl 200 mcg/ Sodium Chloride 50 ml @ 0 mls/hr CONT PRN IV PER PROTOCOL Last administered on 09/15/18at 09:03; Start 09/10/18 at 13:30; Stop 09/15/18 at 12:06; Status DC Sodium Chloride 500 ml @ 500 mls/hr 1X PRN PRN IV SEE COMMENTS; Start at 13:30 Atropine Sulfate (ATROPINE 0.5mg SYRINGE) 0.5 mg PRN Q5MIN PRN IV SEE COMMENTS ; Start 09/10/18 at 13:30; Stop 09/12/18 at 13:15; Status DC Levofloxacin/ Dextrose 100 ml @ 100 mls/hr Q24H IV Last administered on at 20:48; Start 09/10/18 at 20:00; Stop 09/11/18 at 09:36; Status DC Enalaprilat (Vasotec Inj) 1.25 mg PRN Q4HRS PRN IVP HYPERTENSION, 1ST CHOICE Last administered on 09/13/18at 18:23; Start 09/11/18 at 02:45 Vancomycin HCl (Vanco Per Pharmacy) 1 each PRN DAILY PRN MC SEE COMMENTS Last administered on 09/14/18at 12:16; Start 09/11/18 at 09:15; Stop 09/15/18 at 10 :49; Status DC Vancomycin HCl 2 gm/Sodium Chloride 500 ml @ 250 mls/hr 1X ONCE IV Last administered on 09/11/18at 10:40; Start 09/11/18 at 09:30; Stop 09/11/18 at 11 :29; Status DC Doxycycline Hyclate (Vibra-Tab) 100 mg BID PO ; Start 09/11/18 at 10:00; Stop 09/11/18 at 15:16; Status DC Cefepime HCl (Maxipime) 1 gm Q8H IVP Last administered on 09/16/18at 10:16; Start 09/11/18 at 10:00 Vancomycin HCl 1.75 gm/Sodium Chloride 500 ml @ 250 mls/hr Q12H IV Last administered on 09/12/18at 22:58; Start 09/11/18 at 23:00; Stop 09/12/18 at 23 :59; Status DC Vancomycin HCl (Vancomycin Trough Level) 1 each 1X ONCE MC Last administered on 09/12/18at 22:26; Start 09/12/18 at 22:30; Stop 09/12/18 at 22:31; Status DC Pantoprazole Sodium (PROTONIX VIAL for IV PUSH) 40 mg DAILYAC IVP Last administered on 09/16/18at 08:15; Start 09/11/18 at 12:30 Multivitamins 10 ml/Thiamine HCl 100 mg/Folic Acid 1 mg/Sodium Chloride 1,011.2 ml @ 0 mls/hr DAILY IV Last administered on 09/16/18at 08:17; Start 09/11/18 at 14:00 Insulin Human Lispro (HumaLOG) 0-7 UNITS TIDWMEALS SQ ; Start 09/11/18 at 17:00 ; Stop 09/11/18 at 17:00; Status DC Dextrose (Dextrose 50%-Water Syringe) 12.5 gm PRN Q15MIN PRN IV SEE COMMENTS; Start 09/11/18 at 13:00 Insulin Human Lispro (HumaLOG) 0-7 UNITS Q6HRS SQ Last administered on at 05:41; Start 09/11/18 at 18:00 Levothyroxine Sodium 0.025 mcg/ Sodium Chloride 5 ml @ 0 mls/hr DAILY IVP ; Start 09/11/18 at 13:30; Stop 09/11/18 at 13:52; Status DC Magnesium Sulfate 50 ml @ 25 mls/hr 1X ONCE IV Last administered on at 15:40; Start 09/11/18 at 13:30; Stop 09/11/18 at 15:29; Status DC Levothyroxine Sodium 25 mcg/ Sodium Chloride 5 ml @ 0 mls/hr DAILY IVP Last administered on 09/16/18at 08:19; Start 09/11/18 at 13:52 Levothyroxine Sodium 25 mcg/ Sodium Chloride 5 ml @ 0 mls/hr 1X ONCE IVP Last administered on 09/11/18at 14:45; Start 09/11/18 at 14:45; Stop 09/11/18 at 14 :46; Status DC Doxycycline Hyclate 100 mg/ Dextrose 100 ml @ 50 mls/hr Q12HR IV Last administered on 09/16/18at 08:17; Start 09/11/18 at 16:00 Magnesium Sulfate 50 ml @ 25 mls/hr 1X ONCE IV Last administered on at 12:56; Start 09/12/18 at 11:30; Stop 09/12/18 at 13:29; Status DC Amino Acids/ Glycerin/ Electrolytes 1,000 ml @ 50 mls/hr Q20H IV Last administered on 09/15/18at 21:38; Start 09/12/18 at 11:30 Haloperidol Lactate (Haldol Inj) 10 mg Q8HRS IVP Last administered on at 06:02; Start 09/12/18 at 14:00 Dexmedetomidine HCl 200 mcg/ Sodium Chloride 50 ml @ 0 mls/hr CONT PRN IV PER PROTOCOL; Start 09/12/18 at 13:15; Stop 09/12/18 at 14:04; Status DC Sodium Chloride 500 ml @ 500 mls/hr 1X PRN PRN IV SEE COMMENTS; Start at 13:15 Atropine Sulfate (ATROPINE 0.5mg SYRINGE) 0.5 mg PRN Q5MIN PRN IV SEE COMMENTS ; Start 09/12/18 at 13:15 Morphine Sulfate (Morphine Sulfate) 2 mg PRN Q2HR PRN IV PAIN Last administered on 09/14/18at 05:10; Start 09/12/18 at 13:15; Stop 09/14/18 at 12 :57; Status DC Metoprolol Tartrate (Lopressor) 25 mg BID PO ; Start 09/12/18 at 17:00; Stop 09/12/18 at 17:00; Status DC Metoprolol Tartrate (Lopressor Vial) 5 mg Q6HRS IVP Last administered on at 06:03; Start 09/12/18 at 18:00 Vancomycin HCl 2 gm/Sodium Chloride 500 ml @ 250 mls/hr Q12H IV Last administered on 09/14/18at 23:26; Start 09/13/18 at 11:00; Stop 09/15/18 at 10 :49; Status DC Vancomycin HCl (Vancomycin Trough Level) 1 each 1X ONCE MC Last administered on 09/14/18at 10:30; Start 09/14/18 at 10:30; Stop 09/14/18 at 10:31; Status DC Nitroglycerin (Nitro-Bid Oint) 1 inch Q6HRS TP Last administered on 09/15/18at 17:33; Start 09/14/18 at 08:30 Aspirin (Aspirin) 300 mg DAILY RI Last administered on 09/16/18at 08:20; Start 09/14/18 at 11:00 Methylprednisolone Sodium Succinate (SOLU-Medrol 40MG VIAL) 40 mg DAILY IV Last administered on 09/16/18at 08:15; Start 09/15/18 at 09:00 Morphine Sulfate (Morphine Sulfate) 2 mg PRN Q2HR PRN IV PAIN Last administered on 09/16/18at 00:40; Start 09/14/18 at 13:00 Lorazepam (Ativan) 2 mg PRN Q4HRS PRN IV ANXIETY / AGITATION Last administered on 09/15/18at 23:00; Start 09/15/18 at 22:45 Active Scripts Active Pantoprazole Sodium 40 Mg Tablet.dr 40 Mg PO DAILYAC Lidoderm (Lidocaine) 700 Mg Adh..patch 1 Patch TD DAILY 12hours on, 12 hours off Lisinopril 2.5 Mg Tablet 2.5 Mg PO DAILY Feosol (Ferrous Sulfate) 325 Mg Tablet 325 Mg PO DAILYAC Children's Aspirin (Aspirin) 81 Mg Tab.chew 81 Mg PO DAILYWBKFT Reported Ventolin Hfa Inhaler (Albuterol Sulfate) 18 Gm Hfa.aer.ad 2 Puff INH Q4HRS Mirtazapine 45 Mg Tablet 1 Tab PO QHS Glipizide 5 Mg Tablet 1 Tab PO BID Metformin Hcl 1,000 Mg Tablet 1,000 Mg PO BIDWMEALS Lantus (Insulin Glargine,Hum.rec.anlog) 100 Unit/1 Ml Vial 50 Unit SQ HS NITROGLYCERIN SubLingual (Nitroglycerin) 0.4 Mg Tab.subl 0.4 Mg SL PRN Q5MIN PRN Fluoxetine Hcl 20 Mg Capsule 3 Cap PO DAILY Novolin R (Insulin Regular, Human) 100 Unit/1 Ml Vial 100 Unit IJ QIDACHS Vitamin D3 (Cholecalciferol (Vitamin D3)) 1,000 Unit Tablet 1 Tab PO TID Vitamin B-12 (Cyanocobalamin (Vitamin B-12)) 1,000 Mcg Tablet 1 Tab PO DAILY Gemfibrozil 600 Mg Tablet 0.5 Tab PO BID Pepcid (Famotidine) 20 Mg Tablet 10 Mg PO BID Cardizem Cd (Diltiazem Hcl) 240 Mg Cap.er.24h 1 Cap PO DAILY Robaxin (Methocarbamol) 500 Mg Tablet 1 Tab PO BID PRN Niaspan (Niacin) 500 Mg Tab.er.24h 1 Tab PO QHS Gabapentin 600 Mg Tablet 300 Mg PO QID Symbicort 80-4.5 Mcg Inhaler (Budesonide/Formoterol Fumarate) 10.2 Gm Hfa.aer.ad 2 Puff IH BID Finasteride 5 Mg Tablet 1 Tab PO DAILY Levothyroxine Sodium 50 Mcg Tablet 1 Tab PO DAILY Tamsulosin Hcl 0.4 Mg Cap.er.24h 0.4 Mg PO BID Spiriva (Tiotropium Ira) 18 Mcg Cap.w.dev 2 Inh IH DAILY Hydrocodone-Apap 7.5-325 (Hydrocodone Bit/Acetaminophen) 1 Each Tablet 1 Tab PO Q4HRS PRN Metoprolol Tartrate 25 Mg Tablet 1 Tab PO BID Vitals/I & O Vital Sign - Last 24 Hours 09/15/18 09/15/18 09/15/18 09/15/18 12:37 12:38 13:00 14:00 Pulse 75 77 76 76 Resp 22 20 B/P (MAP) 117/56 117/56 133/89 (104) 138/80 (99) Pulse Ox 97 93 O2 Delivery Nasal Cannula Nasal Cannula O2 Flow Rate 2.0 2.0 09/15/18 09/15/18 09/15/18 09/15/18 14:09 15:00 16:00 16:00 Pulse 72 Resp 22 20 B/P (MAP) 136/77 (96) Pulse Ox 93 94 O2 Delivery Nasal Cannula Room Air Bi-pap O2 Flow Rate 2.0 4.0 09/15/18 09/15/18 09/15/18 09/15/18 16:00 16:07 16:36 17:00 Temp 98.3 98.3 Pulse 85 104 Resp 20 24 B/P (MAP) 113/80 (91) 104/72 (83) Pulse Ox 92 95 94 91 O2 Delivery Room Air Room Air Nasal Cannula Room Air O2 Flow Rate 5.0 09/15/18 09/15/18 09/15/18 09/15/18 17:33 17:34 18:00 19:00 Pulse 104 104 94 107 Resp 24 33 B/P (MAP) 104/72 104/72 119/92 (101) 142/108 (119) Pulse Ox 96 94 O2 Delivery Room Air Room Air 09/15/18 09/15/18 09/15/18 09/15/18 19:43 20:00 20:00 20:00 Temp 98.5 98.5 Pulse 103 Resp 22 B/P (MAP) 140/95 (110) Pulse Ox 94 95 O2 Delivery Nasal Cannula Room Air Bi-pap O2 Flow Rate 5.0 4.0 09/15/18 09/15/18 09/15/18 09/15/18 21:00 21:39 22:00 23:00 Pulse 102 114 116 Resp 21 23 27 27 B/P (MAP) 174/100 (124) 126/80 (95) 115/62 (79) Pulse Ox 94 94 95 94 O2 Delivery Room Air Nasal Cannula Room Air Room Air O2 Flow Rate 2.0 12/09/16/18 09/16/18 09/16/18 23:59 00:00 00:00 00:00 Temp 98.7 98.7 Pulse 114 116 Resp 31 B/P (MAP) 117/72 132/78 (96) Pulse Ox 95 O2 Delivery Bi-pap Room Air O2 Flow Rate 4.0 09/16/18 09/16/18 09/16/18 09/16/18 00:40 01:00 01:10 02:00 Pulse 114 114 Resp 25 B/P (MAP) 117/72 (87) 145/79 (101) Pulse Ox 95 94 96 95 O2 Delivery Nasal Cannula Room Air Nasal Cannula Room Air O2 Flow Rate 3.0 4.0 09/16/18 09/16/18 09/16/18 09/16/18 02:15 03:00 04:00 04:00 Pulse 118 99 Resp 24 B/P (MAP) 145/79 142/73 (96) Pulse Ox 98 O2 Delivery Nasal Cannula Bi-pap O2 Flow Rate 4.0 4.0 09/16/18 09/16/18 09/16/18 09/16/18 04:00 05:00 06:00 06:00 Temp 98.1 98.1 Pulse 98 103 84 83 Resp 17 B/P (MAP) 108/70 (83) 161/85 (110) 81/45 151/80 (103) Pulse Ox 95 97 94 O2 Delivery Nasal Cannula Nasal Cannula Nasal Cannula O2 Flow Rate 4.0 4.0 4.0 09/16/18 09/16/18 09/16/18 09/16/18 06:03 07:00 08:00 08:00 Pulse 100 82 Resp 23 B/P (MAP) 151/80 118/73 (88) O2 Delivery Nasal Cannula Bi-pap O2 Flow Rate 4.0 4.0 09/16/18 09/16/18 09/16/18 09/16/18 08:00 08:33 09:00 10:00 Temp 98.6 98.6 Pulse 94 86 87 Resp 22 B/P (MAP) 152/98 (116) 135/80 (98) 161/73 (102) Pulse Ox 97 O2 Delivery Nasal Cannula Nasal Cannula Nasal Cannula Nasal Cannula O2 Flow Rate 4.0 4.0 4.0 4.0 Intake and Output 09/15/18 09/15/18 09/16/18 15:01 23:01 07:01 Intake Total 100 ml 1131 ml 798 ml Output Total 1310 ml 1275 ml 560 ml Balance -1210 ml -144 ml 238 ml Images MRI Brain without contrast History: Altered mental status, 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 Comparison: July 11, 2016 Findings: There is fairly severe motion degradation even for repeated images. There is no convincing evidence of recent infarct. There is no new midline shift or significant extra axial fluid collection. There is again multifocal [id number] T2 and FLAIR hyperintense abnormality of the supratentorial parenchyma bilaterally greatest of the periatrial and parietal white matter. Accurate evaluation for degree of change of T2 and FLAIR hyperintense abnormality is limited due to severe motion, including of the parasagittal parietal and frontal lobes, probably unchanged allowing for likely artifact in the parasagittal frontal parietal lobes. There is generalized supratentorial involutional change as seen previously. There is disconjugate gaze. There is patchy minimal ethmoid air cell mucosal thickening. There is again large right maxillary sinus mucous retention cyst. There is preservation of the major arterial flow voids at the skull base. There is mild thickening of the mastoid air cells greater on the right. Impression: 1. Exam is significantly degraded by motion, no convincing evidence of recent infarct or intracranial mass effect. Accurate evaluation for change of T2 and FLAIR hyperintense signal of the supratentorial parenchyma is limited due to severe motion, again scattered T2 and FLAIR hyperintense signal likely due to chronic intravascular ischemic disease. Accurate evaluation of the parasagittal frontal parietal lobes is very limited, although findings probably unchanged allowing for motion. If there is persistent clinical concern for posterior reversible encephalopathy syndrome, attempt at repeat FLAIR sequence could be beneficial. LESLEY PALM MD Sep 16, 2018 12:39
--- NOTE | 2018-09-16 13:14 | PDOC ---
PULMONARY PROGRESS NOTES Subjective RECOGNIZED OFF BIPAP Vitals Vital Signs Date Time Temp Pulse Resp B/P (MAP) Pulse Ox O2 Delivery O2 Flow Rate FiO2 09/16/18 12:49 90 198/91 09/16/18 12:36 95 Nasal Cannula 3.0 09/16/18 10:00 22 09/16/18 08:00 98.6 98.6 ROS: No Nausea, No Chest Pain, No Abdominal Pain, No Increase Cough General: Alert Lungs: Crackles Cardiovascular: S1, S2 Abdomen: Soft, Other (OBESE) Extremities: Other (EDEMA) Skin: Warm Labs Laboratory Tests Test 09/14/18 17:32 09/14/18 23:38 09/15/18 05:00 09/15/18 05:10 Glucose (Fingerstick) 142 mg/dL (70-99) 143 mg/dL (70-99) 127 mg/dL (70-99) White Blood Count 8.3 x10^3/uL (4.0-11.0) Red Blood Count 4.31 x10^6/uL (4.30-5.70) Hemoglobin 12.3 g/dL (13.0-17.5) Hematocrit 35.9 % (39.0-53.0) Mean Corpuscular Volume 83 fL (79-100) Mean Corpuscular Hemoglobin 28 pg (25-35) Mean Corpuscular Hemoglobin Concent 34 g/dL (31-37) Red Cell Distribution Width 14.2 % (11.5-14.5) Platelet Count 225 x10^3/uL (140-400) Neutrophils (%) (Auto) 68 % (31-73) Lymphocytes (%) (Auto) 23 % (24-48) Monocytes (%) (Auto) 7 % (0-9) Eosinophils (%) (Auto) 1 % (0-3) Basophils (%) (Auto) 1 % (0-3) Neutrophils # (Auto) 5.6 x10^3uL (1.8-7.7) Lymphocytes # (Auto) 1.9 x10^3/uL (1.0-4.8) Monocytes # (Auto) 0.6 x10^3/uL (0.0-1.1) Eosinophils # (Auto) 0.1 x10^3/uL (0.0-0.7) Basophils # (Auto) 0.1 x10^3/uL (0.0-0.2) Sodium Level 136 mmol/L (136-145) Potassium Level 3.9 mmol/L (3.5-5.1) Chloride Level 102 mmol/L (98-107) Carbon Dioxide Level 27 mmol/L (21-32) Anion Gap 7 (6-14) Blood Urea Nitrogen 19 mg/dL (8-26) Creatinine 0.7 mg/dL (0.7-1.3) Estimated GFR (Cockcroft-Gault) 111.8 Glucose Level 139 mg/dL (70-99) Calcium Level 8.8 mg/dL (8.5-10.1) Test 09/15/18 12:30 09/15/18 17:29 09/16/18 00:31 09/16/18 04:00 Glucose (Fingerstick) 149 mg/dL (70-99) 109 mg/dL (70-99) 118 mg/dL (70-99) White Blood Count 10.8 x10^3/uL (4.0-11.0) Red Blood Count 4.53 x10^6/uL (4.30-5.70) Hemoglobin 12.8 g/dL (13.0-17.5) Hematocrit 37.9 % (39.0-53.0) Mean Corpuscular Volume 84 fL (79-100) Mean Corpuscular Hemoglobin 28 pg (25-35) Mean Corpuscular Hemoglobin Concent 34 g/dL (31-37) Red Cell Distribution Width 14.0 % (11.5-14.5) Platelet Count 275 x10^3/uL (140-400) Neutrophils (%) (Auto) 68 % (31-73) Lymphocytes (%) (Auto) 19 % (24-48) Monocytes (%) (Auto) 11 % (0-9) Eosinophils (%) (Auto) 1 % (0-3) Basophils (%) (Auto) 1 % (0-3) Neutrophils # (Auto) 7.3 x10^3uL (1.8-7.7) Lymphocytes # (Auto) 2.1 x10^3/uL (1.0-4.8) Monocytes # (Auto) 1.2 x10^3/uL (0.0-1.1) Eosinophils # (Auto) 0.1 x10^3/uL (0.0-0.7) Basophils # (Auto) 0.1 x10^3/uL (0.0-0.2) Sodium Level 139 mmol/L (136-145) Potassium Level 3.8 mmol/L (3.5-5.1) Chloride Level 103 mmol/L (98-107) Carbon Dioxide Level 26 mmol/L (21-32) Anion Gap 10 (6-14) Blood Urea Nitrogen 21 mg/dL (8-26) Creatinine 0.8 mg/dL (0.7-1.3) Estimated GFR (Cockcroft-Gault) 95.8 Glucose Level 117 mg/dL (70-99) Calcium Level 9.2 mg/dL (8.5-10.1) Test 09/16/18 06:04 09/16/18 12:52 Glucose (Fingerstick) 119 mg/dL (70-99) 151 mg/dL (70-99) Laboratory Tests Test 09/15/18 17:29 09/16/18 00:31 09/16/18 04:00 09/16/18 06:04 Glucose (Fingerstick) 109 mg/dL (70-99) 118 mg/dL (70-99) 119 mg/dL (70-99) White Blood Count 10.8 x10^3/uL (4.0-11.0) Red Blood Count 4.53 x10^6/uL (4.30-5.70) Hemoglobin 12.8 g/dL (13.0-17.5) Hematocrit 37.9 % (39.0-53.0) Mean Corpuscular Volume 84 fL (79-100) Mean Corpuscular Hemoglobin 28 pg (25-35) Mean Corpuscular Hemoglobin Concent 34 g/dL (31-37) Red Cell Distribution Width 14.0 % (11.5-14.5) Platelet Count 275 x10^3/uL (140-400) Neutrophils (%) (Auto) 68 % (31-73) Lymphocytes (%) (Auto) 19 % (24-48) Monocytes (%) (Auto) 11 % (0-9) Eosinophils (%) (Auto) 1 % (0-3) Basophils (%) (Auto) 1 % (0-3) Neutrophils # (Auto) 7.3 x10^3uL (1.8-7.7) Lymphocytes # (Auto) 2.1 x10^3/uL (1.0-4.8) Monocytes # (Auto) 1.2 x10^3/uL (0.0-1.1) Eosinophils # (Auto) 0.1 x10^3/uL (0.0-0.7) Basophils # (Auto) 0.1 x10^3/uL (0.0-0.2) Sodium Level 139 mmol/L (136-145) Potassium Level 3.8 mmol/L (3.5-5.1) Chloride Level 103 mmol/L (98-107) Carbon Dioxide Level 26 mmol/L (21-32) Anion Gap 10 (6-14) Blood Urea Nitrogen 21 mg/dL (8-26) Creatinine 0.8 mg/dL (0.7-1.3) Estimated GFR (Cockcroft-Gault) 95.8 Glucose Level 117 mg/dL (70-99) Calcium Level 9.2 mg/dL (8.5-10.1) Test 09/16/18 12:52 Glucose (Fingerstick) 151 mg/dL (70-99) Medications Active Scripts Medications Dose Route/Sig Max Daily Dose Days Date Category Dose Instructions Ventolin Hfa Inhaler (Albuterol Sulfate) 18 Gm Hfa.aer.ad 2 Puff INH Q4HRS 09/11/18 Reported Mirtazapine 45 Mg Tablet 1 Tab PO QHS 09/11/18 Reported Glipizide 5 Mg Tablet 1 Tab PO BID 09/11/18 Reported Metformin Hcl 1,000 Mg Tablet 1,000 Mg PO BIDWMEALS 09/11/18 Reported Lantus (Insulin Glargine,Hum.rec.anlog) 100 Unit/1 Ml Vial 50 Unit SQ HS 09/11/18 Reported NITROGLYCERIN SubLingual (Nitroglycerin) 0.4 Mg Tab.subl 0.4 Mg SL PRN Q5MIN PRN 09/11/18 Reported Fluoxetine Hcl 20 Mg Capsule 3 Cap PO DAILY 09/11/18 Reported Novolin R (Insulin Regular, Human) 100 Unit/1 Ml Vial 100 Unit IJ QIDACHS 09/11/18 Reported Vitamin D3 (Cholecalciferol (Vitamin D3)) 1,000 Unit Tablet 1 Tab PO TID 09/11/18 Reported Vitamin B-12 (Cyanocobalamin (Vitamin B-12)) 1,000 Mcg Tablet 1 Tab PO DAILY 09/11/18 Reported Gemfibrozil 600 Mg Tablet 0.5 Tab PO BID 09/11/18 Reported Pepcid (Famotidine) 20 Mg Tablet 10 Mg PO BID 09/11/18 Reported Cardizem Cd (Diltiazem Hcl) 240 Mg Cap.er.24h 1 Cap PO DAILY 09/11/18 Reported Robaxin (Methocarbamol) 500 Mg Tablet 1 Tab PO BID PRN 09/11/18 Reported Niaspan (Niacin) 500 Mg Tab.er.24h 1 Tab PO QHS 09/11/18 Reported Gabapentin 600 Mg Tablet 300 Mg PO QID 09/11/18 Reported Pantoprazole Sodium 40 Mg Tablet.dr 40 Mg PO DAILYAC 07/16/16 Rx Lidoderm (Lidocaine) 700 Mg Adh..patch 1 Patch TD DAILY 07/16/16 Rx 12hours on, 12 hours off Lisinopril 2.5 Mg Tablet 2.5 Mg PO DAILY 07/16/16 Rx Feosol (Ferrous Sulfate) 325 Mg Tablet 325 Mg PO DAILYAC 07/16/16 Rx Children's Aspirin (Aspirin) 81 Mg Tab.chew 81 Mg PO DAILYWBKFT 07/16/16 Rx Symbicort 80-4.5 Mcg Inhaler (Budesonide/Formoterol Fumarate) 10.2 Gm Hfa.aer.ad 2 Puff IH BID 07/09/16 Reported Finasteride 5 Mg Tablet 1 Tab PO DAILY 07/09/16 Reported Levothyroxine Sodium 50 Mcg Tablet 1 Tab PO DAILY 07/09/16 Reported Tamsulosin Hcl 0.4 Mg Cap.er.24h 0.4 Mg PO BID 07/09/16 Reported Spiriva (Tiotropium [place]) 18 Mcg Cap.w.dev 2 Inh IH DAILY 07/09/16 Reported Hydrocodone-Apap 7.5-325 (Hydrocodone Bit/Acetaminophen) 1 Each Tablet 1 Tab PO Q4HRS PRN 07/09/16 Reported Metoprolol Tartrate 25 Mg Tablet 1 Tab PO BID 07/09/16 Reported Comments IMPRESSION: Mild patchy opacities in the right lung base may be secondary to subsegmental atelectasis or pneumonia. Findings of COPD. Impression . IMPRESSION: 1. Acute hypoxemic respiratory failure, multifactorial in etiolog 2. Abnormal chest x-ray/PNEUMONIA 3. Acute exacerbation of chronic obstructive pulmonary disease. 4. Acute bronchitis versus pneumonia. 5. METABOLIC/TOXIC Encephalopathy POA 6. Acute kidney injury. 7. Obstructive sleep apnea-hypopnea syndrome. 8. CAD S/P CABG 9. Hypertension. 10. BACTEREMIA/SEPSIS PER ID Impression: Right internal jugular catheter terminates at the expected level of the superior aspect of the superior vena cava. No pneumothorax. Pulmonary vasculature congestion. Plan . DECREASE HALDOL D/C ATIVAN OFF PRECEDEX BETTER TODAY ANTIBX PER ID CONTINUE BIPAP QHS STEROIDS DECREASE D/W RT ARLYN FENTON MD Sep 16, 2018 13:14
[2018-09-16] MEDS: AMINO AC 3%/ELECTROLYTE/GLYCER 1,000 ML IV SCH (18:15)
[2018-09-16] MEDS: ENALAPRILAT 1.25 MG/ML VIAL. IVP PRN (20:51)
[2018-09-16] MEDS: PATCH REMOVAL. MC SCH (21:00)
[2018-09-17] VITALS (26 sets, daily range): BP systolic 112–209; BP diastolic 62–108
[2018-09-17] MEDS: NITROGLYCERIN OINT 1 GM PACKET. TP SCH ×4 (00:41→18:03)
[2018-09-17] MEDS: METOPROLOL TARTRATE 5 MG/5 ML VIAL. IVP SCH ×4 (00:41→18:02)
[2018-09-17] MEDS: MORPHINE SULFATE 4 MG/ML VIAL. IV PRN (02:01)
[2018-09-17] MEDS: CEFEPIME HCL IV Push 1 GM VIAL. IVP SCH ×3 (02:02→18:03)
[2018-09-17 04:57] LABS: BASO # 0.1 x10^3/uL (0.0-0.2); BASO % 1 % (0-3); EOS % 0 % (0-3); HEMOGLOBIN 13.1 g/dL (13.0-17.5); LYMPH # 2.1 x10^3/uL (1.0-4.8); LYMPH % 18 % (24-48); MEAN CORPUSCULAR HEMOGLOBIN 28 pg (25-35); MEAN CORPUSCULAR HGB CONC 34 g/dL (31-37); MEAN CORPUSCULAR VOLUME 84 fL (79-100); MONO # 1.2 x10^3/uL (0.0-1.1); MONO % 10 % (0-9); NEUT # 8.3 x10^3uL (1.8-7.7); NEUT % 71 % (31-73); PLATELET COUNT 326 x10^3/uL (140-400); RED BLOOD COUNT 4.65 x10^6/uL (4.30-5.70); RED CELL DISTRIBUTION WIDTH 14.3 % (11.5-14.5); WHITE BLOOD COUNT 11.8 x10^3/uL (4.0-11.0)
[2018-09-17 05:19] LABS: CALCIUM 9.5 mg/dL (8.5-10.1); CREATININE 0.7 mg/dL (0.7-1.3); GFR 111.8; POTASSIUM 3.5 mmol/L (3.5-5.1)
[2018-09-17] MEDS: INSULIN LISPRO 300 UNITS/3 ML INSULN.PEN. SQ SCH ×4 (06:00→18:00)
[2018-09-17] MEDS: HALOPERIDOL LACTATE 5 MG/ML VIAL. IVP SCH (06:11)
[2018-09-17] MEDS: IPRATRPIUM/ALBUTEROL 0.5/2.5MG 3 ML NEBU. NEB SCH ×4 (07:46→19:41)
[2018-09-17] MEDS: methylPREDNISolone SOD SUCC PF 40 MG/ML VIAL. IV SCH (08:19)
[2018-09-17] MEDS: ASPIRIN 300 MG SUPP.RECT PR SCH (08:20)
[2018-09-17] MEDS: PANTOPRAZOLE IV PUSH 40 MG VIAL. IVP SCH (08:20)
[2018-09-17] MEDS: DOXYCYCLINE HYCLATE 100 MG in IV DEXTROSE 5% 100ML 100 ML IV SCH ×2 (08:21→21:13)
[2018-09-17] MEDS: LIDOCAINE (700MG/PATCH) PATCH. TD SCH (08:21)
[2018-09-17] MEDS: MULTIVIT INFUSN,ADULT 4,VIT K 10 ML, THIAMINE INJ 100 MG, FOLIC ACID INJ 1 MG in IV NOR... IV SCH (08:41)
[2018-09-17] MEDS: LEVOTHYROXINE SODIUM IVP SCH (08:43)
[2018-09-17] MEDS: NORMAL SALINE IVP SCH (08:43)
--- NOTE | 2018-09-17 09:41 | PDOC ---
PULMONARY PROGRESS NOTES Subjective off bipap and 02 Vitals Vital Signs Date Time Temp Pulse Resp B/P (MAP) Pulse Ox O2 Delivery O2 Flow Rate FiO2 09/17/18 09:00 96 23 149/101 (117) 98 Room Air 09/17/18 08:00 98.2 98.2 09/17/18 06:00 4.0 ROS: No Nausea, No Chest Pain, No Abdominal Pain, No Increase Cough General: Alert Lungs: Crackles Cardiovascular: S1, S2 Abdomen: Soft, Other (OBESE) Extremities: Other (EDEMA) Skin: Warm Labs Laboratory Tests Test 09/15/18 12:30 09/15/18 17:29 09/16/18 00:31 09/16/18 04:00 Glucose (Fingerstick) 149 mg/dL (70-99) 109 mg/dL (70-99) 118 mg/dL (70-99) White Blood Count 10.8 x10^3/uL (4.0-11.0) Red Blood Count 4.53 x10^6/uL (4.30-5.70) Hemoglobin 12.8 g/dL (13.0-17.5) Hematocrit 37.9 % (39.0-53.0) Mean Corpuscular Volume 84 fL (79-100) Mean Corpuscular Hemoglobin 28 pg (25-35) Mean Corpuscular Hemoglobin Concent 34 g/dL (31-37) Red Cell Distribution Width 14.0 % (11.5-14.5) Platelet Count 275 x10^3/uL (140-400) Neutrophils (%) (Auto) 68 % (31-73) Lymphocytes (%) (Auto) 19 % (24-48) Monocytes (%) (Auto) 11 % (0-9) Eosinophils (%) (Auto) 1 % (0-3) Basophils (%) (Auto) 1 % (0-3) Neutrophils # (Auto) 7.3 x10^3uL (1.8-7.7) Lymphocytes # (Auto) 2.1 x10^3/uL (1.0-4.8) Monocytes # (Auto) 1.2 x10^3/uL (0.0-1.1) Eosinophils # (Auto) 0.1 x10^3/uL (0.0-0.7) Basophils # (Auto) 0.1 x10^3/uL (0.0-0.2) Sodium Level 139 mmol/L (136-145) Potassium Level 3.8 mmol/L (3.5-5.1) Chloride Level 103 mmol/L (98-107) Carbon Dioxide Level 26 mmol/L (21-32) Anion Gap 10 (6-14) Blood Urea Nitrogen 21 mg/dL (8-26) Creatinine 0.8 mg/dL (0.7-1.3) Estimated GFR (Cockcroft-Gault) 95.8 Glucose Level 117 mg/dL (70-99) Calcium Level 9.2 mg/dL (8.5-10.1) Test 09/16/18 06:04 09/16/18 12:52 09/16/18 18:29 09/17/18 00:46 Glucose (Fingerstick) 119 mg/dL (70-99) 151 mg/dL (70-99) 124 mg/dL (70-99) 124 mg/dL (70-99) Test 09/17/18 04:30 White Blood Count 11.8 x10^3/uL (4.0-11.0) Red Blood Count 4.65 x10^6/uL (4.30-5.70) Hemoglobin 13.1 g/dL (13.0-17.5) Hematocrit 39.0 % (39.0-53.0) Mean Corpuscular Volume 84 fL (79-100) Mean Corpuscular Hemoglobin 28 pg (25-35) Mean Corpuscular Hemoglobin Concent 34 g/dL (31-37) Red Cell Distribution Width 14.3 % (11.5-14.5) Platelet Count 326 x10^3/uL (140-400) Neutrophils (%) (Auto) 71 % (31-73) Lymphocytes (%) (Auto) 18 % (24-48) Monocytes (%) (Auto) 10 % (0-9) Eosinophils (%) (Auto) 0 % (0-3) Basophils (%) (Auto) 1 % (0-3) Neutrophils # (Auto) 8.3 x10^3uL (1.8-7.7) Lymphocytes # (Auto) 2.1 x10^3/uL (1.0-4.8) Monocytes # (Auto) 1.2 x10^3/uL (0.0-1.1) Eosinophils # (Auto) 0.0 x10^3/uL (0.0-0.7) Basophils # (Auto) 0.1 x10^3/uL (0.0-0.2) Sodium Level 138 mmol/L (136-145) Potassium Level 3.5 mmol/L (3.5-5.1) Chloride Level 101 mmol/L (98-107) Carbon Dioxide Level 24 mmol/L (21-32) Anion Gap 13 (6-14) Blood Urea Nitrogen 18 mg/dL (8-26) Creatinine 0.7 mg/dL (0.7-1.3) Estimated GFR (Cockcroft-Gault) 111.8 Glucose Level 141 mg/dL (70-99) Calcium Level 9.5 mg/dL (8.5-10.1) Laboratory Tests Test 09/16/18 12:52 09/16/18 18:29 09/17/18 00:46 09/17/18 04:30 Glucose (Fingerstick) 151 mg/dL (70-99) 124 mg/dL (70-99) 124 mg/dL (70-99) White Blood Count 11.8 x10^3/uL (4.0-11.0) Red Blood Count 4.65 x10^6/uL (4.30-5.70) Hemoglobin 13.1 g/dL (13.0-17.5) Hematocrit 39.0 % (39.0-53.0) Mean Corpuscular Volume 84 fL (79-100) Mean Corpuscular Hemoglobin 28 pg (25-35) Mean Corpuscular Hemoglobin Concent 34 g/dL (31-37) Red Cell Distribution Width 14.3 % (11.5-14.5) Platelet Count 326 x10^3/uL (140-400) Neutrophils (%) (Auto) 71 % (31-73) Lymphocytes (%) (Auto) 18 % (24-48) Monocytes (%) (Auto) 10 % (0-9) Eosinophils (%) (Auto) 0 % (0-3) Basophils (%) (Auto) 1 % (0-3) Neutrophils # (Auto) 8.3 x10^3uL (1.8-7.7) Lymphocytes # (Auto) 2.1 x10^3/uL (1.0-4.8) Monocytes # (Auto) 1.2 x10^3/uL (0.0-1.1) Eosinophils # (Auto) 0.0 x10^3/uL (0.0-0.7) Basophils # (Auto) 0.1 x10^3/uL (0.0-0.2) Sodium Level 138 mmol/L (136-145) Potassium Level 3.5 mmol/L (3.5-5.1) Chloride Level 101 mmol/L (98-107) Carbon Dioxide Level 24 mmol/L (21-32) Anion Gap 13 (6-14) Blood Urea Nitrogen 18 mg/dL (8-26) Creatinine 0.7 mg/dL (0.7-1.3) Estimated GFR (Cockcroft-Gault) 111.8 Glucose Level 141 mg/dL (70-99) Calcium Level 9.5 mg/dL (8.5-10.1) Medications Active Scripts Medications Dose Route/Sig Max Daily Dose Days Date Category Dose Instructions Ventolin Hfa Inhaler (Albuterol Sulfate) 18 Gm Hfa.aer.ad 2 Puff INH Q4HRS 09/11/18 Reported Mirtazapine 45 Mg Tablet 1 Tab PO QHS 09/11/18 Reported Glipizide 5 Mg Tablet 1 Tab PO BID 09/11/18 Reported Metformin Hcl 1,000 Mg Tablet 1,000 Mg PO BIDWMEALS 09/11/18 Reported Lantus (Insulin Glargine,Hum.rec.anlog) 100 Unit/1 Ml Vial 50 Unit SQ HS 09/11/18 Reported NITROGLYCERIN SubLingual (Nitroglycerin) 0.4 Mg Tab.subl 0.4 Mg SL PRN Q5MIN PRN 09/11/18 Reported Fluoxetine Hcl 20 Mg Capsule 3 Cap PO DAILY 09/11/18 Reported Novolin R (Insulin Regular, Human) 100 Unit/1 Ml Vial 100 Unit IJ QIDACHS 09/11/18 Reported Vitamin D3 (Cholecalciferol (Vitamin D3)) 1,000 Unit Tablet 1 Tab PO TID 09/11/18 Reported Vitamin B-12 (Cyanocobalamin (Vitamin B-12)) 1,000 Mcg Tablet 1 Tab PO DAILY 09/11/18 Reported Gemfibrozil 600 Mg Tablet 0.5 Tab PO BID 09/11/18 Reported Pepcid (Famotidine) 20 Mg Tablet 10 Mg PO BID 09/11/18 Reported Cardizem Cd (Diltiazem Hcl) 240 Mg Cap.er.24h 1 Cap PO DAILY 09/11/18 Reported Robaxin (Methocarbamol) 500 Mg Tablet 1 Tab PO BID PRN 09/11/18 Reported Niaspan (Niacin) 500 Mg Tab.er.24h 1 Tab PO QHS 09/11/18 Reported Gabapentin 600 Mg Tablet 300 Mg PO QID 09/11/18 Reported Pantoprazole Sodium 40 Mg Tablet.dr 40 Mg PO DAILYAC 07/16/16 Rx Lidoderm (Lidocaine) 700 Mg Adh..patch 1 Patch TD DAILY 07/16/16 Rx 12hours on, 12 hours off Lisinopril 2.5 Mg Tablet 2.5 Mg PO DAILY 07/16/16 Rx Feosol (Ferrous Sulfate) 325 Mg Tablet 325 Mg PO DAILYAC 07/16/16 Rx Children's Aspirin (Aspirin) 81 Mg Tab.chew 81 Mg PO DAILYWBKFT 07/16/16 Rx Symbicort 80-4.5 Mcg Inhaler (Budesonide/Formoterol Fumarate) 10.2 Gm Hfa.aer.ad 2 Puff IH BID 07/09/16 Reported Finasteride 5 Mg Tablet 1 Tab PO DAILY 07/09/16 Reported Levothyroxine Sodium 50 Mcg Tablet 1 Tab PO DAILY 07/09/16 Reported Tamsulosin Hcl 0.4 Mg Cap.er.24h 0.4 Mg PO BID 07/09/16 Reported Spiriva (Tiotropium [place]) 18 Mcg Cap.w.dev 2 Inh IH DAILY 07/09/16 Reported Hydrocodone-Apap 7.5-325 (Hydrocodone Bit/Acetaminophen) 1 Each Tablet 1 Tab PO Q4HRS PRN 07/09/16 Reported Metoprolol Tartrate 25 Mg Tablet 1 Tab PO BID 07/09/16 Reported Comments IMPRESSION: Mild patchy opacities in the right lung base may be secondary to subsegmental atelectasis or pneumonia. Findings of COPD. Impression . IMPRESSION: 1. Acute hypoxemic respiratory failure, multifactorial in etiolog 2. Abnormal chest x-ray/PNEUMONIA 3. Acute exacerbation of chronic obstructive pulmonary disease. 4. Acute bronchitis versus pneumonia. 5. METABOLIC/TOXIC Encephalopathy POA 6. Acute kidney injury. 7. Obstructive sleep apnea-hypopnea syndrome. 8. CAD S/P CABG 9. Hypertension. 10. BACTEREMIA/SEPSIS PER ID Impression: Right internal jugular catheter terminates at the expected level of the superior aspect of the superior vena cava. No pneumothorax. Pulmonary vasculature congestion. Plan . OK TO TRANSFER BETTER TODAY WILL D/C HALDOL D/C ATIVAN ANTIBX PER ID CONTINUE BIPAP QHS STEROIDS DECREASE ARLYN FENTON MD Sep 17, 2018 09:41
[2018-09-17] MEDS: LABETALOL 20 MG/4 ML DISP.SYRIN. IVP PRN ×2 (11:26→14:47)
--- NOTE | 2018-09-17 12:20 | PDOC ---
Infectious Disease Note Subjective Subjective at bedside. Says she's notice some tremors in shoulders, arms and hands intermittently. Also having some visual hallucinations. She's noticed him speak in complete sentences today where before he wasn't able to do so. No fevers Vital Sign Vital Signs Vital Signs Date Time Temp Pulse Resp B/P (MAP) Pulse Ox O2 Delivery O2 Flow Rate FiO2 09/17/18 11:53 79 192/111 09/17/18 11:20 98 Room Air 09/17/18 11:00 20 09/17/18 08:00 98.2 98.2 09/17/18 06:00 4.0 Physical Exam PHYSICAL EXAM GENERAL: Resting quietly HEENT: Pupils are equal and reactive. Normal conjunctivae, Oral cavity pink, dry NECK: Supple LUNGS: Decreased in the bases. HEART: S1, S2 ABDOMEN: Obese, soft, no grimace or guarding to palpation : Mary EXTREMITIES: Trace edema. SKIN: Warm to touch without generalized signs of rash. NEUROLOGIC: Arouse to voice, confused recognizes his by name, Labs Lab Laboratory Tests Test 09/16/18 12:52 09/16/18 18:29 09/17/18 00:46 09/17/18 04:30 Glucose (Fingerstick) 151 mg/dL (70-99) 124 mg/dL (70-99) 124 mg/dL (70-99) White Blood Count 11.8 x10^3/uL (4.0-11.0) Red Blood Count 4.65 x10^6/uL (4.30-5.70) Hemoglobin 13.1 g/dL (13.0-17.5) Hematocrit 39.0 % (39.0-53.0) Mean Corpuscular Volume 84 fL (79-100) Mean Corpuscular Hemoglobin 28 pg (25-35) Mean Corpuscular Hemoglobin Concent 34 g/dL (31-37) Red Cell Distribution Width 14.3 % (11.5-14.5) Platelet Count 326 x10^3/uL (140-400) Neutrophils (%) (Auto) 71 % (31-73) Lymphocytes (%) (Auto) 18 % (24-48) Monocytes (%) (Auto) 10 % (0-9) Eosinophils (%) (Auto) 0 % (0-3) Basophils (%) (Auto) 1 % (0-3) Neutrophils # (Auto) 8.3 x10^3uL (1.8-7.7) Lymphocytes # (Auto) 2.1 x10^3/uL (1.0-4.8) Monocytes # (Auto) 1.2 x10^3/uL (0.0-1.1) Eosinophils # (Auto) 0.0 x10^3/uL (0.0-0.7) Basophils # (Auto) 0.1 x10^3/uL (0.0-0.2) Sodium Level 138 mmol/L (136-145) Potassium Level 3.5 mmol/L (3.5-5.1) Chloride Level 101 mmol/L (98-107) Carbon Dioxide Level 24 mmol/L (21-32) Anion Gap 13 (6-14) Blood Urea Nitrogen 18 mg/dL (8-26) Creatinine 0.7 mg/dL (0.7-1.3) Estimated GFR (Cockcroft-Gault) 111.8 Glucose Level 141 mg/dL (70-99) Calcium Level 9.5 mg/dL (8.5-10.1) Test 09/17/18 11:54 Glucose (Fingerstick) 176 mg/dL (70-99) Micro Objective Assessment Fever- better - procalcitonin and Sed rate normal Bacteremia ? sepsis 2/ POA. CoNS x 2, likely contaminant. ECHO 09/12 very limited,, Encephalopathy - on Ativan - BP improved h/o ETOH and hydrocodone. PCN allergy - has had amox H/o SVT Acute Resp failure - ? CAP vs AECOPD, on steroids HTN DO - hydrocodone Hematuria - clearing H/o Compression fractures h/o ETOH abuse Plan Plan of Care Cont Doxy and cefepime for now,, Off vanc Monitor labs Supportive care D/w D/w RN Patient seen and examined. Chart reviewed in detail. Case discussed with [employer]ICAL [employer] MA[employer]GER. Agree with above Plan. GABRIEL CALLES APRN Sep 17, 2018 12:20 BERTA CHAWLA MD Sep 17, 2018 22:04
--- NOTE | 2018-09-17 12:56 | PDOC ---
PROGRESS NOTES Chief Complaint Chief Complaint Alcohol withdrawal Rhabdomyolysis- acute kidney injury secondary to above Hypercapnic/hypoxic respiratory failure in a super morbidly obese on NIPPV SABRINA, need CPAP at night Possible pickwickian syndrome CAP/atelectasis on chest x-ray History of CAD, CABG COPD flare History of sepsis/UTI History of IBS, alternating bowel movements History of alcoholism AK I on CK D/ VMN Diabetes Acute on chronic back pain-took 15 [place] in before the hospital stay Accel hypertension History of Present Illness History of Present Illness Patient seen and examined in ICU Spoke to nursing at bedside. Spoke with patient's at the bedside Patient is a Vitals Vitals Vital Signs Date Time Temp Pulse Resp B/P (MAP) Pulse Ox O2 Delivery O2 Flow Rate FiO2 09/17/18 11:53 79 192/111 09/17/18 11:20 98 Room Air 09/17/18 11:00 20 09/17/18 08:00 98.2 98.2 09/17/18 06:00 4.0 Physical Exam Physical Exam GENERAL: Resting quietly HEENT: Pupils are equal and reactive. Normal conjunctivae, Oral cavity pink, dry NECK: Supple LUNGS: Decreased in the bases. HEART: S1, S2 ABDOMEN: Obese, soft, no grimace or guarding to palpation : Mary EXTREMITIES: Trace edema. SKIN: Warm to touch without generalized signs of rash. NEUROLOGIC: [place]ouse to voice, confused recognizes his by name, General: Alert, mild distress, Other (confused) Heart: Regular rate, Normal S1, Normal S2, Other (distant heart tones. ) Lungs: Crackles Abdomen: Soft, Other (obese) Extremities: No edema, Normal pulses Skin: No significant lesion Labs LABS Laboratory Tests Test 09/16/18 12:52 09/16/18 18:29 09/17/18 00:46 09/17/18 04:30 Glucose (Fingerstick) 151 mg/dL (70-99) 124 mg/dL (70-99) 124 mg/dL (70-99) White Blood Count 11.8 x10^3/uL (4.0-11.0) Red Blood Count 4.65 x10^6/uL (4.30-5.70) Hemoglobin 13.1 g/dL (13.0-17.5) Hematocrit 39.0 % (39.0-53.0) Mean Corpuscular Volume 84 fL (79-100) Mean Corpuscular Hemoglobin 28 pg (25-35) Mean Corpuscular Hemoglobin Concent 34 g/dL (31-37) Red Cell Distribution Width 14.3 % (11.5-14.5) Platelet Count 326 x10^3/uL (140-400) Neutrophils (%) (Auto) 71 % (31-73) Lymphocytes (%) (Auto) 18 % (24-48) Monocytes (%) (Auto) 10 % (0-9) Eosinophils (%) (Auto) 0 % (0-3) Basophils (%) (Auto) 1 % (0-3) Neutrophils # (Auto) 8.3 x10^3uL (1.8-7.7) Lymphocytes # (Auto) 2.1 x10^3/uL (1.0-4.8) Monocytes # (Auto) 1.2 x10^3/uL (0.0-1.1) Eosinophils # (Auto) 0.0 x10^3/uL (0.0-0.7) Basophils # (Auto) 0.1 x10^3/uL (0.0-0.2) Sodium Level 138 mmol/L (136-145) Potassium Level 3.5 mmol/L (3.5-5.1) Chloride Level 101 mmol/L (98-107) Carbon Dioxide Level 24 mmol/L (21-32) Anion Gap 13 (6-14) Blood Urea Nitrogen 18 mg/dL (8-26) Creatinine 0.7 mg/dL (0.7-1.3) Estimated GFR (Cockcroft-Gault) 111.8 Glucose Level 141 mg/dL (70-99) Calcium Level 9.5 mg/dL (8.5-10.1) Test 09/17/18 11:54 Glucose (Fingerstick) 176 mg/dL (70-99) Review of Systems Review of Systems denies chest pain denies shortness of breath Assessment and Plan Assessmemt and Plan Assessment Alcohol withdrawal, improved Metabolic encephalopathy, resolved Rhabdomyolysis- acute kidney injury secondary to above Hypercapnic/hypoxic respiratory failure in a super morbidly obese on NIPPV [place], need CPAP at night Possible pickwickian syndrome CAP/atelectasis on chest x-ray History of CAD, CABG COPD flare History of sepsis/UTI History of IBS, alternating bowel movements History of alcoholism AK I on CK D/ VMN Diabetes Acute on chronic back pain-took 15 [place] in the last 12 hours because of back pain Accel hypertension Plan Ok to transfer out of ICU Off Sedation 09/17/18 AM Continue BiPap and Abx per pulm and ID respectively D/C Ativan and Haldol per pulm Supportive Care Discharge Dispo: Possible Rehab Tuesday, deconditioned patient Comment Review of Relevant I have reviewed the following items barby (where applicable) has been applied. Labs Laboratory Tests Test 09/15/18 17:29 09/16/18 00:31 09/16/18 04:00 09/16/18 06:04 Glucose (Fingerstick) 109 mg/dL (70-99) 118 mg/dL (70-99) 119 mg/dL (70-99) White Blood Count 10.8 x10^3/uL (4.0-11.0) Red Blood Count 4.53 x10^6/uL (4.30-5.70) Hemoglobin 12.8 g/dL (13.0-17.5) Hematocrit 37.9 % (39.0-53.0) Mean Corpuscular Volume 84 fL (79-100) Mean Corpuscular Hemoglobin 28 pg (25-35) Mean Corpuscular Hemoglobin Concent 34 g/dL (31-37) Red Cell Distribution Width 14.0 % (11.5-14.5) Platelet Count 275 x10^3/uL (140-400) Neutrophils (%) (Auto) 68 % (31-73) Lymphocytes (%) (Auto) 19 % (24-48) Monocytes (%) (Auto) 11 % (0-9) Eosinophils (%) (Auto) 1 % (0-3) Basophils (%) (Auto) 1 % (0-3) Neutrophils # (Auto) 7.3 x10^3uL (1.8-7.7) Lymphocytes # (Auto) 2.1 x10^3/uL (1.0-4.8) Monocytes # (Auto) 1.2 x10^3/uL (0.0-1.1) Eosinophils # (Auto) 0.1 x10^3/uL (0.0-0.7) Basophils # (Auto) 0.1 x10^3/uL (0.0-0.2) Sodium Level 139 mmol/L (136-145) Potassium Level 3.8 mmol/L (3.5-5.1) Chloride Level 103 mmol/L (98-107) Carbon Dioxide Level 26 mmol/L (21-32) Anion Gap 10 (6-14) Blood Urea Nitrogen 21 mg/dL (8-26) Creatinine 0.8 mg/dL (0.7-1.3) Estimated GFR (Cockcroft-Gault) 95.8 Glucose Level 117 mg/dL (70-99) Calcium Level 9.2 mg/dL (8.5-10.1) Test 09/16/18 12:52 09/16/18 18:29 09/17/18 00:46 09/17/18 04:30 Glucose (Fingerstick) 151 mg/dL (70-99) 124 mg/dL (70-99) 124 mg/dL (70-99) White Blood Count 11.8 x10^3/uL (4.0-11.0) Red Blood Count 4.65 x10^6/uL (4.30-5.70) Hemoglobin 13.1 g/dL (13.0-17.5) Hematocrit 39.0 % (39.0-53.0) Mean Corpuscular Volume 84 fL (79-100) Mean Corpuscular Hemoglobin 28 pg (25-35) Mean Corpuscular Hemoglobin Concent 34 g/dL (31-37) Red Cell Distribution Width 14.3 % (11.5-14.5) Platelet Count 326 x10^3/uL (140-400) Neutrophils (%) (Auto) 71 % (31-73) Lymphocytes (%) (Auto) 18 % (24-48) Monocytes (%) (Auto) 10 % (0-9) Eosinophils (%) (Auto) 0 % (0-3) Basophils (%) (Auto) 1 % (0-3) Neutrophils # (Auto) 8.3 x10^3uL (1.8-7.7) Lymphocytes # (Auto) 2.1 x10^3/uL (1.0-4.8) Monocytes # (Auto) 1.2 x10^3/uL (0.0-1.1) Eosinophils # (Auto) 0.0 x10^3/uL (0.0-0.7) Basophils # (Auto) 0.1 x10^3/uL (0.0-0.2) Sodium Level 138 mmol/L (136-145) Potassium Level 3.5 mmol/L (3.5-5.1) Chloride Level 101 mmol/L (98-107) Carbon Dioxide Level 24 mmol/L (21-32) Anion Gap 13 (6-14) Blood Urea Nitrogen 18 mg/dL (8-26) Creatinine 0.7 mg/dL (0.7-1.3) Estimated GFR (Cockcroft-Gault) 111.8 Glucose Level 141 mg/dL (70-99) Calcium Level 9.5 mg/dL (8.5-10.1) Test 09/17/18 11:54 Glucose (Fingerstick) 176 mg/dL (70-99) Laboratory Tests Test 09/16/18 12:52 09/16/18 18:29 09/17/18 00:46 09/17/18 04:30 Glucose (Fingerstick) 151 mg/dL (70-99) 124 mg/dL (70-99) 124 mg/dL (70-99) White Blood Count 11.8 x10^3/uL (4.0-11.0) Red Blood Count 4.65 x10^6/uL (4.30-5.70) Hemoglobin 13.1 g/dL (13.0-17.5) Hematocrit 39.0 % (39.0-53.0) Mean Corpuscular Volume 84 fL (79-100) Mean Corpuscular Hemoglobin 28 pg (25-35) Mean Corpuscular Hemoglobin Concent 34 g/dL (31-37) Red Cell Distribution Width 14.3 % (11.5-14.5) Platelet Count 326 x10^3/uL (140-400) Neutrophils (%) (Auto) 71 % (31-73) Lymphocytes (%) (Auto) 18 % (24-48) Monocytes (%) (Auto) 10 % (0-9) Eosinophils (%) (Auto) 0 % (0-3) Basophils (%) (Auto) 1 % (0-3) Neutrophils # (Auto) 8.3 x10^3uL (1.8-7.7) Lymphocytes # (Auto) 2.1 x10^3/uL (1.0-4.8) Monocytes # (Auto) 1.2 x10^3/uL (0.0-1.1) Eosinophils # (Auto) 0.0 x10^3/uL (0.0-0.7) Basophils # (Auto) 0.1 x10^3/uL (0.0-0.2) Sodium Level 138 mmol/L (136-145) Potassium Level 3.5 mmol/L (3.5-5.1) Chloride Level 101 mmol/L (98-107) Carbon Dioxide Level 24 mmol/L (21-32) Anion Gap 13 (6-14) Blood Urea Nitrogen 18 mg/dL (8-26) Creatinine 0.7 mg/dL (0.7-1.3) Estimated GFR (Cockcroft-Gault) 111.8 Glucose Level 141 mg/dL (70-99) Calcium Level 9.5 mg/dL (8.5-10.1) Test 09/17/18 11:54 Glucose (Fingerstick) 176 mg/dL (70-99) Microbiology 09/09/18 Blood Culture - Final, Complete NO GROWTH AFTER 5 DAYS Medications Current Medications Thiamine Mononitrate (Vitamin B-1) 100 mg 1X STAT PO Last administered on at 14:50; Start 09/09/18 at 14:38; Stop 09/09/18 at 14:41; Status DC Folic Acid (Folic Acid) 1 mg 1X STAT PO Last administered on 09/09/18at 14:50 ; Start 09/09/18 at 14:38; Stop 09/09/18 at 14:41; Status DC Sodium Chloride 1,000 ml @ 1,000 mls/hr 1X ONCE IV Last administered on 09/09at 14:50; Start 09/09/18 at 15:00; Stop 09/09/18 at 15:59; Status DC Labetalol HCl (Normodyne Iv Push) 20 mg 1X ONCE IVP Last administered on 09/09at 16:53; Start 09/09/18 at 17:00; Stop 09/09/18 at 17:01; Status DC Chlordiazepoxide (Librium) 25 mg PRN Q6HRS PRN PO ANXIETY / AGITATION Last administered on 09/09/18at 22:35; Start 09/09/18 at 17:00; Stop 09/10/18 at 10 :35; Status DC Acetaminophen (Tylenol) 500 mg PRN Q6HRS PRN PO MILD PAIN / TEMP; Start at 17:00 Morphine Sulfate (Morphine Sulfate) 2 mg PRN Q2HR PRN IV MODERATE TO SEVERE PAIN Last administered on 09/12/18at 11:14; Start 09/09/18 at 17:00; Stop at 11:45; Status DC Sodium Chloride 1,000 ml @ 100 mls/hr Q10H IV Last administered on 09/09/18at 19:30; Start 09/09/18 at 18:00; Stop 09/10/18 at 10:35; Status DC Multivitamins (Thera M Plus) 1 tab DAILY PO ; Start 09/10/18 at 09:00; Stop at 13:13; Status DC Thiamine Mononitrate (Vitamin B-1) 100 mg DAILY PO ; Start 09/10/18 at 09:00; Stop 09/11/18 at 13:13; Status DC Folic Acid (Folic Acid) 1 mg DAILY PO ; Start 09/10/18 at 09:00; Stop at 13:13; Status DC Labetalol HCl (Normodyne Iv Push) 20 mg PRN Q2HR PRN IVP HYPERTENSION, 2ND CHOICE Last administered on 09/17/18at 11:26; Start 09/09/18 at 17:00 Nicotine (Nicoderm Cq 21mg) 1 patch PRN DAILY PRN TD SMOKING CESSATION; Start 09/09/18 at 17:15; Stop 09/11/18 at 13:13; Status DC Oxycodone/ Acetaminophen (Percocet 5/325) 1 tab PRN Q4HRS PRN PO SEVERE PAIN; Start 09/09/18 at 17:15; Stop 09/15/18 at 12:06; Status DC Diphenhydramine HCl (Benadryl) 25 mg PRN QHS PRN PO INSOMNIA; Start 09/09/18 at 17:15 Aspirin (Children'S Aspirin) 81 mg DAILYWBKFT PO ; Start 09/10/18 at 08:00; Stop 09/12/18 at 09:56; Status DC Atorvastatin Calcium (Lipitor) 40 mg QHS PO Last administered on 09/09/18at 21: 11; Start 09/09/18 at 21:00; Stop 09/12/18 at 09:56; Status DC Atorvastatin Calcium (Lipitor) 40 mg QHS PO ; Start 09/09/18 at 21:00; Status UNV Duloxetine HCl (Cymbalta) 30 mg BID PO Last administered on 09/09/18at 21:12; Start 09/09/18 at 21:00; Stop 09/11/18 at 13:13; Status DC Ferrous Sulfate (Feosol) 325 mg DAILYAC PO ; Start 09/10/18 at 07:30; Stop at 13:13; Status DC Finasteride (Proscar) 5 mg DAILY PO ; Start 09/10/18 at 09:00; Stop 09/12/18 at 09:56; Status DC Lorazepam (Ativan) 0.5 mg PRN DAILY PRN PO ANXIETY / AGITATION; Start at 17:15; Stop 09/10/18 at 10:35; Status DC Metoprolol Tartrate (Lopressor) 25 mg BID PO Last administered on 09/09/18at 21 :12; Start 09/09/18 at 21:00; Stop 09/11/18 at 13:19; Status DC Pantoprazole Sodium (Protonix) 40 mg DAILYAC PO ; Start 09/10/18 at 07:30; Stop 09/11/18 at 12:20; Status DC Tamsulosin HCl (Flomax) 0.4 mg DAILY PO ; Start 09/10/18 at 09:00; Stop at 09:56; Status DC Tramadol HCl (Ultram) 50 mg PRN Q6HRS PRN PO MODERATE PAIN; Start 09/09/18 at 17:15; Stop 09/15/18 at 12:06; Status DC Budesonide (Pulmicort) 0.5 mg RTBID NEB Last administered on 09/12/18at 07:47; Start 09/09/18 at 20:00; Stop 09/12/18 at 11:45; Status DC Diltiazem HCl (Cardizem 24hr Cd) 120 mg DAILY PO ; Start 09/10/18 at 09:00; Stop 09/11/18 at 13:13; Status DC Insulin Glargine (Lantus) 10 units QHS SQ Last administered on 09/09/18at 21:49 ; Start 09/09/18 at 21:00; Stop 09/10/18 at 10:35; Status DC Levothyroxine Sodium (Synthroid) 50 mcg DAILY06 PO ; Start 09/10/18 at 06:00; Stop 09/12/18 at 09:56; Status DC Lidocaine (Lidoderm) 1 patch DAILY TD Last administered on 09/17/18at 08:21; Start 09/10/18 at 09:00 Lisinopril (Prinivil) 2.5 mg DAILY PO ; Start 09/10/18 at 09:00; Stop at 13:13; Status DC Non-Formulary Medication (Tiotropium [place] (Spiriva)) 2 inh DAILY IH ; Start 09/10/18 at 09:00; Status UNV Warfarin Sodium (Coumadin) 7.5 mg DAILY16 PO ; Start 09/09/18 at 18:00; Stop 09/10/18 at 16:34; Status DC Insulin Human Lispro (HumaLOG) 0-9 UNITS TIDWMEALS SQ ; Start 09/10/18 at 08:00 ; Stop 09/11/18 at 13:13; Status DC Dextrose (Dextrose 50%-Water Syringe) 12.5 gm PRN Q15MIN PRN IV SEE COMMENTS; Start 09/09/18 at 17:15; Stop 09/12/18 at 08:17; Status DC Miscellaneous (Lidoderm Patch Removal) 1 ea QHS MC Last administered on at 21:00; Start 09/09/18 at 21:00 Albuterol/ Ipratropium (Duoneb) 3 ml RTQID NEB Last administered on 09/17/18at 11:20; Start 09/09/18 at 20:00 Warfarin Sodium (Coumadin Per Physician) 1 each PRN DAILY PRN MC SEE COMMENTS Last administered on 09/11/18at 11:21; Start 09/09/18 at 17:30; Stop 09/11/18 at 13:13; Status DC Sodium Chloride 1,000 ml @ 75 mls/hr [id number] IV ; Start 09/09/18 at 17:30; Stop 09/10/18 at 10:35; Status DC Lorazepam (Ativan) 2 mg 1X ONCE IV Last administered on 09/09/18at 17:30; Start 09/09/18 at 17:30; Stop 09/09/18 at 17:31; Status DC Clonidine HCl (Catapres) 0.1 mg PRN Q1HR PRN PO SBP > 180 or DBP > 100, MRX3; Start 09/09/18 at 17:30 Lorazepam (Ativan) 2 mg PRN Q15MIN PRN IV CIWA 8-14 Last administered on at 20:38; Start 09/09/18 at 17:30; Stop 09/15/18 at 12:06; Status DC Albuterol/ Ipratropium (Duoneb) 3 ml 1X ONCE NEB ; Start 09/09/18 at 17:30; Stop 09/09/18 at 17:31; Status DC Levofloxacin/ Dextrose 150 ml @ 100 mls/hr 1X ONCE IV Last administered on at 21:03; Start 09/09/18 at 17:30; Stop 09/09/18 at 18:59; Status DC Albuterol/ Ipratropium (Duoneb) 3 ml RTQID NEB ; Start 09/09/18 at 20:00; Status UNV Guaifenesin (Robitussin Dm) 10 ml PRN Q6HRS PRN PO COUGH; Start 09/09/18 at 19 :00 Levofloxacin/ Dextrose (Levaquin Per Pharmacy) 1 each PRN DAILY PRN MC SEE COMMENTS; Start 09/09/18 at 19:00; Stop 09/11/18 at 09:24; Status DC Heparin Sodium (Porcine) (Heparin Sodium) 5,000 unit Q8HRS SQ Last administered on 09/11/18at 05:48; Start 09/09/18 at 22:00; Stop 09/12/18 at 11 :01; Status DC Levofloxacin/ Dextrose 50 ml @ 50 mls/hr Q24H IV ; Start 09/10/18 at 20:00; Stop 09/10/18 at 20:00; Status DC Haloperidol Lactate (Haldol Inj) 5 mg PRN Q6HRS PRN IVP AGITATION Last administered on 09/15/18at 23:00; Start 09/10/18 at 01:15 Famotidine (Pepcid Vial) 20 mg QHS IVP Last administered on 09/12/18at 20:47; Start 09/10/18 at 21:00; Stop 09/13/18 at 08:50; Status DC Methylprednisolone Sodium Succinate (SOLU-Medrol 40MG VIAL) 40 mg Q12HR IV Last administered on 09/14/18at 08:24; Start 09/10/18 at 09:00; Stop 09/14/18 at 12:49; Status DC Chlordiazepoxide (Librium) 50 mg PRN Q6HRS PRN PO ANXIETY/AGITATION, 2ND CHOICE ; Start 09/10/18 at 10:45 Lorazepam (Ativan) 1 mg PRN DAILY PRN PO ANXIETY / AGITATION, 1ST CHOIC; Start 09/10/18 at 10:45; Stop 09/15/18 at 12:06; Status DC Dexmedetomidine HCl 200 mcg/ Sodium Chloride 50 ml @ 0 mls/hr CONT PRN IV PER PROTOCOL Last administered on 09/15/18at 09:03; Start 09/10/18 at 13:30; Stop 09/15/18 at 12:06; Status DC Sodium Chloride 500 ml @ 500 mls/hr 1X PRN PRN IV SEE COMMENTS; Start at 13:30 Atropine Sulfate (ATROPINE 0.5mg SYRINGE) 0.5 mg PRN Q5MIN PRN IV SEE COMMENTS ; Start 09/10/18 at 13:30; Stop 09/12/18 at 13:15; Status DC Levofloxacin/ Dextrose 100 ml @ 100 mls/hr Q24H IV Last administered on at 20:48; Start 09/10/18 at 20:00; Stop 09/11/18 at 09:36; Status DC Enalaprilat (Vasotec Inj) 1.25 mg PRN Q4HRS PRN IVP HYPERTENSION, 1ST CHOICE Last administered on 09/16/18at 20:51; Start 09/11/18 at 02:45 Vancomycin HCl (Vanco Per Pharmacy) 1 each PRN DAILY PRN MC SEE COMMENTS Last administered on 09/14/18at 12:16; Start 09/11/18 at 09:15; Stop 09/15/18 at 10 :49; Status DC Vancomycin HCl 2 gm/Sodium Chloride 500 ml @ 250 mls/hr 1X ONCE IV Last administered on 09/11/18at 10:40; Start 09/11/18 at 09:30; Stop 09/11/18 at 11 :29; Status DC Doxycycline Hyclate (Vibra-Tab) 100 mg BID PO ; Start 09/11/18 at 10:00; Stop 09/11/18 at 15:16; Status DC Cefepime HCl (Maxipime) 1 gm Q8H IVP Last administered on 09/17/18at 10:13; Start 09/11/18 at 10:00 Vancomycin HCl 1.75 gm/Sodium Chloride 500 ml @ 250 mls/hr Q12H IV Last administered on 09/12/18at 22:58; Start 09/11/18 at 23:00; Stop 09/12/18 at 23 :59; Status DC Vancomycin HCl (Vancomycin Trough Level) 1 each 1X ONCE MC Last administered on 09/12/18at 22:26; Start 09/12/18 at 22:30; Stop 09/12/18 at 22:31; Status DC Pantoprazole Sodium (PROTONIX VIAL for IV PUSH) 40 mg DAILYAC IVP Last administered on 09/17/18at 08:20; Start 09/11/18 at 12:30 Multivitamins 10 ml/Thiamine HCl 100 mg/Folic Acid 1 mg/Sodium Chloride 1,011.2 ml @ 0 mls/hr DAILY IV Last administered on 09/17/18at 08:41; Start 09/11/18 at 14:00 Insulin Human Lispro (HumaLOG) 0-7 UNITS TIDWMEALS SQ ; Start 09/11/18 at 17:00 ; Stop 09/11/18 at 17:00; Status DC Dextrose (Dextrose 50%-Water Syringe) 12.5 gm PRN Q15MIN PRN IV SEE COMMENTS; Start 09/11/18 at 13:00 Insulin Human Lispro (HumaLOG) 0-7 UNITS Q6HRS SQ Last administered on at 05:41; Start 09/11/18 at 18:00 Levothyroxine Sodium 0.025 mcg/ Sodium Chloride 5 ml @ 0 mls/hr DAILY IVP ; Start 09/11/18 at 13:30; Stop 09/11/18 at 13:52; Status DC Magnesium Sulfate 50 ml @ 25 mls/hr 1X ONCE IV Last administered on at 15:40; Start 09/11/18 at 13:30; Stop 09/11/18 at 15:29; Status DC Levothyroxine Sodium 25 mcg/ Sodium Chloride 5 ml @ 0 mls/hr DAILY IVP Last administered on 09/17/18at 08:43; Start 09/11/18 at 13:52 Levothyroxine Sodium 25 mcg/ Sodium Chloride 5 ml @ 0 mls/hr 1X ONCE IVP Last administered on 09/11/18at 14:45; Start 09/11/18 at 14:45; Stop 09/11/18 at 14 :46; Status DC Doxycycline Hyclate 100 mg/ Dextrose 100 ml @ 50 mls/hr Q12HR IV Last administered on 09/17/18at 08:21; Start 09/11/18 at 16:00 Magnesium Sulfate 50 ml @ 25 mls/hr 1X ONCE IV Last administered on at 12:56; Start 09/12/18 at 11:30; Stop 09/12/18 at 13:29; Status DC Amino Acids/ Glycerin/ Electrolytes 1,000 ml @ 50 mls/hr Q20H IV Last administered on 09/16/18at 18:15; Start 09/12/18 at 11:30 Haloperidol Lactate (Haldol Inj) 10 mg Q8HRS IVP Last administered on at 06:02; Start 09/12/18 at 14:00; Stop 09/16/18 at 13:14; Status DC Dexmedetomidine HCl 200 mcg/ Sodium Chloride 50 ml @ 0 mls/hr CONT PRN IV PER PROTOCOL; Start 09/12/18 at 13:15; Stop 09/12/18 at 14:04; Status DC Sodium Chloride 500 ml @ 500 mls/hr 1X PRN PRN IV SEE COMMENTS; Start at 13:15 Atropine Sulfate (ATROPINE 0.5mg SYRINGE) 0.5 mg PRN Q5MIN PRN IV SEE COMMENTS ; Start 09/12/18 at 13:15 Morphine Sulfate (Morphine Sulfate) 2 mg PRN Q2HR PRN IV PAIN Last administered on 09/14/18at 05:10; Start 09/12/18 at 13:15; Stop 09/14/18 at 12 :57; Status DC Metoprolol Tartrate (Lopressor) 25 mg BID PO ; Start 09/12/18 at 17:00; Stop 09/12/18 at 17:00; Status DC Metoprolol Tartrate (Lopressor Vial) 5 mg Q6HRS IVP Last administered on at 11:52; Start 09/12/18 at 18:00 Vancomycin HCl 2 gm/Sodium Chloride 500 ml @ 250 mls/hr Q12H IV Last administered on 09/14/18at 23:26; Start 09/13/18 at 11:00; Stop 09/15/18 at 10 :49; Status DC Vancomycin HCl (Vancomycin Trough Level) 1 each 1X ONCE MC Last administered on 09/14/18at 10:30; Start 09/14/18 at 10:30; Stop 09/14/18 at 10:31; Status DC Nitroglycerin (Nitro-Bid Oint) 1 inch Q6HRS TP Last administered on 09/17/18at 11:53; Start 09/14/18 at 08:30 Aspirin (Aspirin) 300 mg DAILY UT Last administered on 09/17/18at 08:20; Start 09/14/18 at 11:00 Methylprednisolone Sodium Succinate (SOLU-Medrol 40MG VIAL) 40 mg DAILY IV Last administered on 09/17/18at 08:19; Start 09/15/18 at 09:00 Morphine Sulfate (Morphine Sulfate) 2 mg PRN Q2HR PRN IV PAIN Last administered on 09/17/18at 02:01; Start 09/14/18 at 13:00 Lorazepam (Ativan) 2 mg PRN Q4HRS PRN IV ANXIETY / AGITATION Last administered on 09/15/18at 23:00; Start 09/15/18 at 22:45; Stop 09/16/18 at 13:14; Status DC Haloperidol Lactate (Haldol Inj) 5 mg Q8HRS IVP Last administered on at 06:11; Start 09/16/18 at 14:00; Stop 09/17/18 at 09:42; Status DC Active Scripts Active Pantoprazole Sodium 40 Mg Tablet.dr 40 Mg PO DAILYAC Lidoderm (Lidocaine) 700 Mg Adh..patch 1 Patch TD DAILY 12hours on, 12 hours off Lisinopril 2.5 Mg Tablet 2.5 Mg PO DAILY Feosol (Ferrous Sulfate) 325 Mg Tablet 325 Mg PO DAILYAC Children's Aspirin (Aspirin) 81 Mg Tab.chew 81 Mg PO DAILYWBKFT Reported Ventolin Hfa Inhaler (Albuterol Sulfate) 18 Gm Hfa.aer.ad 2 Puff INH Q4HRS Mirtazapine 45 Mg Tablet 1 Tab PO QHS Glipizide 5 Mg Tablet 1 Tab PO BID Metformin Hcl 1,000 Mg Tablet 1,000 Mg PO BIDWMEALS Lantus (Insulin Glargine,Hum.rec.anlog) 100 Unit/1 Ml Vial 50 Unit SQ HS NITROGLYCERIN SubLingual (Nitroglycerin) 0.4 Mg Tab.subl 0.4 Mg SL PRN Q5MIN PRN Fluoxetine Hcl 20 Mg Capsule 3 Cap PO DAILY Novolin R (Insulin Regular, Human) 100 Unit/1 Ml Vial 100 Unit IJ QIDACHS Vitamin D3 (Cholecalciferol (Vitamin D3)) 1,000 Unit Tablet 1 Tab PO TID Vitamin B-12 (Cyanocobalamin (Vitamin B-12)) 1,000 Mcg Tablet 1 Tab PO DAILY Gemfibrozil 600 Mg Tablet 0.5 Tab PO BID Pepcid (Famotidine) 20 Mg Tablet 10 Mg PO BID Cardizem Cd (Diltiazem Hcl) 240 Mg Cap.er.24h 1 Cap PO DAILY Robaxin (Methocarbamol) 500 Mg Tablet 1 Tab PO BID PRN Niaspan (Niacin) 500 Mg Tab.er.24h 1 Tab PO QHS Gabapentin 600 Mg Tablet 300 Mg PO QID Symbicort 80-4.5 Mcg Inhaler (Budesonide/Formoterol Fumarate) 10.2 Gm Hfa.aer.ad 2 Puff IH BID Finasteride 5 Mg Tablet 1 Tab PO DAILY Levothyroxine Sodium 50 Mcg Tablet 1 Tab PO DAILY Tamsulosin Hcl 0.4 Mg Cap.er.24h 0.4 Mg PO BID Spiriva (Tiotropium [place]) 18 Mcg Cap.w.dev 2 Inh IH DAILY Hydrocodone-Apap 7.5-325 (Hydrocodone Bit/Acetaminophen) 1 Each Tablet 1 Tab PO Q4HRS PRN Metoprolol Tartrate 25 Mg Tablet 1 Tab PO BID Vitals/I & O Vital Sign - Last 24 Hours 09/16/18 09/16/18 09/16/18 09/16/18 13:00 13:37 14:00 15:00 Pulse 82 85 84 96 Resp B/P (MAP) 174/92 (119) 190/106 171/97 (121) 138/89 (105) Pulse Ox 96 96 94 O2 Delivery Nasal Cannula Nasal Cannula Nasal Cannula O2 Flow Rate 4.0 4.0 4.0 09/16/18 09/16/18 09/16/18 09/16/18 15:54 16:00 16:00 16:00 Temp 98.6 98.6 Pulse 98 B/P (MAP) 169/92 (117) Pulse Ox 97 O2 Delivery Nasal Cannula Bi-pap Nasal Cannula O2 Flow Rate 3.0 4.0 4.0 09/16/18 09/16/18 09/16/18 09/16/18 17:00 18:00 18:24 18:52 Pulse 102 98 98 94 B/P (MAP) 170/103 (125) 157/81 (106) 120/74 163/73 Pulse Ox 96 94 O2 Delivery Nasal Cannula Nasal Cannula O2 Flow Rate 4.0 4.0 09/16/18 09/16/18 09/16/18 09/16/18 19:00 19:17 20:00 20:00 Temp 98.9 98.9 Pulse 95 94 B/P (MAP) 166/87 (113) 199/97 (131) Pulse Ox 96 94 97 O2 Delivery Nasal Cannula Nasal Cannula Nasal Cannula O2 Flow Rate 4.0 3.0 4.0 4.0 09/16/18 09/16/18 09/16/18 09/16/18 20:00 20:51 21:00 21:15 Pulse 90 100 B/P (MAP) 217/102 155/93 (113) Pulse Ox 92 95 O2 Delivery Nasal Cannula BiPAP/CPAP O2 Flow Rate 4.0 4.0 09/16/18 09/16/18 09/17/18 09/17/18 22:00 23:00 00:00 00:00 Temp 98.7 98.7 Pulse 100 109 102 Resp B/P (MAP) 174/95 (121) 150/71 (97) 152/85 (107) Pulse Ox 96 92 95 O2 Delivery Nasal Cannula Nasal Cannula Nasal Cannula Nasal Cannula O2 Flow Rate 4.0 4.0 4.0 4.0 09/17/18 09/17/18 09/17/18 09/17/18 00:41 00:41 01:00 02:00 Pulse 109 108 92 106 Resp B/P (MAP) 150/71 150/71 209/103 (138) 133/80 (97) Pulse Ox 96 95 O2 Delivery Nasal Cannula Nasal Cannula O2 Flow Rate 4.0 4.0 09/17/18 09/17/18 09/17/18 09/17/18 03:00 04:00 04:00 05:00 Temp 98.7 98.7 Pulse 102 102 100 Resp B/P (MAP) 142/75 (97) 152/85 (107) 188/74 (112) Pulse Ox 95 95 95 O2 Delivery Nasal Cannula Nasal Cannula Nasal Cannula Nasal Cannula O2 Flow Rate 4.0 4.0 4.0 4.0 09/17/18 09/17/18 09/17/18 09/17/18 06:00 06:12 06:14 07:00 Pulse 102 113 108 102 Resp B/P (MAP) 146/75 (98) 148/78 148/78 146/89 (108) Pulse Ox 95 98 O2 Delivery Nasal Cannula Room Air O2 Flow Rate 4.0 09/17/18 09/17/18 09/17/18 09/17/18 07:49 08:00 08:00 09:00 Temp 98.2 98.2 Pulse 100 96 Resp B/P (MAP) 132/94 (107) 149/101 (117) Pulse Ox 97 97 98 O2 Delivery Room Air Room Air Room Air Room Air 09/17/18 09/17/18 09/17/18 09/17/18 10:00 11:00 11:20 11:26 Pulse 94 99 99 Resp 20 B/P (MAP) 160/104 (122) 191/108 (135) 191/108 Pulse Ox 98 98 98 O2 Delivery Room Air Room Air Room Air 09/17/18 09/17/18 11:52 11:53 Pulse 79 79 B/P (MAP) 192/111 192/111 Intake and Output 09/16/18 09/16/18 09/17/18 15:01 23:01 07:01 Intake Total 100 ml 1163.75 ml 40 ml Output Total 900 ml 905 ml 605 ml Balance -800 ml 258.75 ml -565 ml SAURABH DOTSON III DO Sep 17, 2018 12:56
[2018-09-17] MEDS ORDERED: chlordiazePOXIDE HCL 25 MG CAPSULE PO PRN ×2 (14:30)
--- NOTE | 2018-09-17 14:37 | PDOC ---
PROGRESS NOTES Assessment Problems Medical Problems: (1) Acute kidney injury Status: Acute (2) Alcohol withdrawal Status: Acute (3) Pneumonia Status: Acute (4) Rhabdomyolysis Status: Acute Toxic encephalopathy due to narcotics. Hypertensive encephalopathy. Alcohol intoxication and component of Wernicke's monitored delirium tremens, hallucinations Brain MRI negative Plan Change chlordiazepoxide to scheduled dose, watch for sedation EEG later this week Discussed with daughter Subjective He denies pain Objective Vital Signs Date Time Temp Pulse Resp B/P (MAP) Pulse Ox O2 Delivery O2 Flow Rate FiO2 09/17/18 13:00 80 26 173/107 (129) 99 Room Air 09/17/18 12:00 98.3 98.3 09/17/18 06:00 4.0 Intake and Output 09/17/18 07:01 Intake Total 1303.75 ml Output Total 2410 ml Balance -1106.25 ml Intake Oral 40 ml IV Total 1263.75 ml Output Urine Total 2410 ml PHYSICAL EXAM Alert. Oriented to person only, follows commands. Has seen hallucinations, bugs on the davis PERRL. EOMI. CN: no focal findings. Muscle tone: normal. Muscle strength: 4/5 DTR: 1+ Plantar reflex: Flexor Gait: not examined in bed. Sensory exam: no abnormal findings. Cerebellar: No limb ataxia, does have tremulousness Review of Relevant I have reviewed the following items barby (where applicable) has been applied. Labs Laboratory Tests Test 09/15/18 17:29 09/16/18 00:31 09/16/18 04:00 09/16/18 06:04 Glucose (Fingerstick) 109 mg/dL (70-99) 118 mg/dL (70-99) 119 mg/dL (70-99) White Blood Count 10.8 x10^3/uL (4.0-11.0) Red Blood Count 4.53 x10^6/uL (4.30-5.70) Hemoglobin 12.8 g/dL (13.0-17.5) Hematocrit 37.9 % (39.0-53.0) Mean Corpuscular Volume 84 fL (79-100) Mean Corpuscular Hemoglobin 28 pg (25-35) Mean Corpuscular Hemoglobin Concent 34 g/dL (31-37) Red Cell Distribution Width 14.0 % (11.5-14.5) Platelet Count 275 x10^3/uL (140-400) Neutrophils (%) (Auto) 68 % (31-73) Lymphocytes (%) (Auto) 19 % (24-48) Monocytes (%) (Auto) 11 % (0-9) Eosinophils (%) (Auto) 1 % (0-3) Basophils (%) (Auto) 1 % (0-3) Neutrophils # (Auto) 7.3 x10^3uL (1.8-7.7) Lymphocytes # (Auto) 2.1 x10^3/uL (1.0-4.8) Monocytes # (Auto) 1.2 x10^3/uL (0.0-1.1) Eosinophils # (Auto) 0.1 x10^3/uL (0.0-0.7) Basophils # (Auto) 0.1 x10^3/uL (0.0-0.2) Sodium Level 139 mmol/L (136-145) Potassium Level 3.8 mmol/L (3.5-5.1) Chloride Level 103 mmol/L (98-107) Carbon Dioxide Level 26 mmol/L (21-32) Anion Gap 10 (6-14) Blood Urea Nitrogen 21 mg/dL (8-26) Creatinine 0.8 mg/dL (0.7-1.3) Estimated GFR (Cockcroft-Gault) 95.8 Glucose Level 117 mg/dL (70-99) Calcium Level 9.2 mg/dL (8.5-10.1) Test 09/16/18 12:52 09/16/18 18:29 09/17/18 00:46 09/17/18 04:30 Glucose (Fingerstick) 151 mg/dL (70-99) 124 mg/dL (70-99) 124 mg/dL (70-99) White Blood Count 11.8 x10^3/uL (4.0-11.0) Red Blood Count 4.65 x10^6/uL (4.30-5.70) Hemoglobin 13.1 g/dL (13.0-17.5) Hematocrit 39.0 % (39.0-53.0) Mean Corpuscular Volume 84 fL (79-100) Mean Corpuscular Hemoglobin 28 pg (25-35) Mean Corpuscular Hemoglobin Concent 34 g/dL (31-37) Red Cell Distribution Width 14.3 % (11.5-14.5) Platelet Count 326 x10^3/uL (140-400) Neutrophils (%) (Auto) 71 % (31-73) Lymphocytes (%) (Auto) 18 % (24-48) Monocytes (%) (Auto) 10 % (0-9) Eosinophils (%) (Auto) 0 % (0-3) Basophils (%) (Auto) 1 % (0-3) Neutrophils # (Auto) 8.3 x10^3uL (1.8-7.7) Lymphocytes # (Auto) 2.1 x10^3/uL (1.0-4.8) Monocytes # (Auto) 1.2 x10^3/uL (0.0-1.1) Eosinophils # (Auto) 0.0 x10^3/uL (0.0-0.7) Basophils # (Auto) 0.1 x10^3/uL (0.0-0.2) Sodium Level 138 mmol/L (136-145) Potassium Level 3.5 mmol/L (3.5-5.1) Chloride Level 101 mmol/L (98-107) Carbon Dioxide Level 24 mmol/L (21-32) Anion Gap 13 (6-14) Blood Urea Nitrogen 18 mg/dL (8-26) Creatinine 0.7 mg/dL (0.7-1.3) Estimated GFR (Cockcroft-Gault) 111.8 Glucose Level 141 mg/dL (70-99) Calcium Level 9.5 mg/dL (8.5-10.1) Test 09/17/18 11:54 Glucose (Fingerstick) 176 mg/dL (70-99) Laboratory Tests Test 09/16/18 18:29 09/17/18 00:46 09/17/18 04:30 09/17/18 11:54 Glucose (Fingerstick) 124 mg/dL (70-99) 124 mg/dL (70-99) 176 mg/dL (70-99) White Blood Count 11.8 x10^3/uL (4.0-11.0) Red Blood Count 4.65 x10^6/uL (4.30-5.70) Hemoglobin 13.1 g/dL (13.0-17.5) Hematocrit 39.0 % (39.0-53.0) Mean Corpuscular Volume 84 fL (79-100) Mean Corpuscular Hemoglobin 28 pg (25-35) Mean Corpuscular Hemoglobin Concent 34 g/dL (31-37) Red Cell Distribution Width 14.3 % (11.5-14.5) Platelet Count 326 x10^3/uL (140-400) Neutrophils (%) (Auto) 71 % (31-73) Lymphocytes (%) (Auto) 18 % (24-48) Monocytes (%) (Auto) 10 % (0-9) Eosinophils (%) (Auto) 0 % (0-3) Basophils (%) (Auto) 1 % (0-3) Neutrophils # (Auto) 8.3 x10^3uL (1.8-7.7) Lymphocytes # (Auto) 2.1 x10^3/uL (1.0-4.8) Monocytes # (Auto) 1.2 x10^3/uL (0.0-1.1) Eosinophils # (Auto) 0.0 x10^3/uL (0.0-0.7) Basophils # (Auto) 0.1 x10^3/uL (0.0-0.2) Sodium Level 138 mmol/L (136-145) Potassium Level 3.5 mmol/L (3.5-5.1) Chloride Level 101 mmol/L (98-107) Carbon Dioxide Level 24 mmol/L (21-32) Anion Gap 13 (6-14) Blood Urea Nitrogen 18 mg/dL (8-26) Creatinine 0.7 mg/dL (0.7-1.3) Estimated GFR (Cockcroft-Gault) 111.8 Glucose Level 141 mg/dL (70-99) Calcium Level 9.5 mg/dL (8.5-10.1) Microbiology 09/09/18 Blood Culture - Final, Complete NO GROWTH AFTER 5 DAYS Medications Current Medications Thiamine Mononitrate (Vitamin B-1) 100 mg 1X STAT PO Last administered on at 14:50; Start 09/09/18 at 14:38; Stop 09/09/18 at 14:41; Status DC Folic Acid (Folic Acid) 1 mg 1X STAT PO Last administered on 09/09/18at 14:50 ; Start 09/09/18 at 14:38; Stop 09/09/18 at 14:41; Status DC Sodium Chloride 1,000 ml @ 1,000 mls/hr 1X ONCE IV Last administered on 09/09at 14:50; Start 09/09/18 at 15:00; Stop 09/09/18 at 15:59; Status DC Labetalol HCl (Normodyne Iv Push) 20 mg 1X ONCE IVP Last administered on 09/09at 16:53; Start 09/09/18 at 17:00; Stop 09/09/18 at 17:01; Status DC Chlordiazepoxide (Librium) 25 mg PRN Q6HRS PRN PO ANXIETY / AGITATION Last administered on 09/09/18at 22:35; Start 09/09/18 at 17:00; Stop 09/10/18 at 10 :35; Status DC Acetaminophen (Tylenol) 500 mg PRN Q6HRS PRN PO MILD PAIN / TEMP; Start at 17:00 Morphine Sulfate (Morphine Sulfate) 2 mg PRN Q2HR PRN IV MODERATE TO SEVERE PAIN Last administered on 09/12/18at 11:14; Start 09/09/18 at 17:00; Stop at 11:45; Status DC Sodium Chloride 1,000 ml @ 100 mls/hr Q10H IV Last administered on 09/09/18at 19:30; Start 09/09/18 at 18:00; Stop 09/10/18 at 10:35; Status DC Multivitamins (Thera M Plus) 1 tab DAILY PO ; Start 09/10/18 at 09:00; Stop at 13:13; Status DC Thiamine Mononitrate (Vitamin B-1) 100 mg DAILY PO ; Start 09/10/18 at 09:00; Stop 09/11/18 at 13:13; Status DC Folic Acid (Folic Acid) 1 mg DAILY PO ; Start 09/10/18 at 09:00; Stop at 13:13; Status DC Labetalol HCl (Normodyne Iv Push) 20 mg PRN Q2HR PRN IVP HYPERTENSION, 2ND CHOICE Last administered on 09/17/18at 11:26; Start 09/09/18 at 17:00 Nicotine (Nicoderm Cq 21mg) 1 patch PRN DAILY PRN TD SMOKING CESSATION; Start 09/09/18 at 17:15; Stop 09/11/18 at 13:13; Status DC Oxycodone/ Acetaminophen (Percocet 5/325) 1 tab PRN Q4HRS PRN PO SEVERE PAIN; Start 09/09/18 at 17:15; Stop 09/15/18 at 12:06; Status DC Diphenhydramine HCl (Benadryl) 25 mg PRN QHS PRN PO INSOMNIA; Start 09/09/18 at 17:15 Aspirin (Children'S Aspirin) 81 mg DAILYWBKFT PO ; Start 09/10/18 at 08:00; Stop 09/12/18 at 09:56; Status DC Atorvastatin Calcium (Lipitor) 40 mg QHS PO Last administered on 09/09/18at 21: 11; Start 09/09/18 at 21:00; Stop 09/12/18 at 09:56; Status DC Atorvastatin Calcium (Lipitor) 40 mg QHS PO ; Start 09/09/18 at 21:00; Status UNV Duloxetine HCl (Cymbalta) 30 mg BID PO Last administered on 09/09/18at 21:12; Start 09/09/18 at 21:00; Stop 09/11/18 at 13:13; Status DC Ferrous Sulfate (Feosol) 325 mg DAILYAC PO ; Start 09/10/18 at 07:30; Stop at 13:13; Status DC Finasteride (Proscar) 5 mg DAILY PO ; Start 09/10/18 at 09:00; Stop 09/12/18 at 09:56; Status DC Lorazepam (Ativan) 0.5 mg PRN DAILY PRN PO ANXIETY / AGITATION; Start at 17:15; Stop 09/10/18 at 10:35; Status DC Metoprolol Tartrate (Lopressor) 25 mg BID PO Last administered on 09/09/18at 21 :12; Start 09/09/18 at 21:00; Stop 09/11/18 at 13:19; Status DC Pantoprazole Sodium (Protonix) 40 mg DAILYAC PO ; Start 09/10/18 at 07:30; Stop 09/11/18 at 12:20; Status DC Tamsulosin HCl (Flomax) 0.4 mg DAILY PO ; Start 09/10/18 at 09:00; Stop at 09:56; Status DC Tramadol HCl (Ultram) 50 mg PRN Q6HRS PRN PO MODERATE PAIN; Start 09/09/18 at 17:15; Stop 09/15/18 at 12:06; Status DC Budesonide (Pulmicort) 0.5 mg RTBID NEB Last administered on 09/12/18at 07:47; Start 09/09/18 at 20:00; Stop 09/12/18 at 11:45; Status DC Diltiazem HCl (Cardizem 24hr Cd) 120 mg DAILY PO ; Start 09/10/18 at 09:00; Stop 09/11/18 at 13:13; Status DC Insulin Glargine (Lantus) 10 units QHS SQ Last administered on 09/09/18at 21:49 ; Start 09/09/18 at 21:00; Stop 09/10/18 at 10:35; Status DC Levothyroxine Sodium (Synthroid) 50 mcg DAILY06 PO ; Start 09/10/18 at 06:00; Stop 09/12/18 at 09:56; Status DC Lidocaine (Lidoderm) 1 patch DAILY TD Last administered on 09/17/18at 08:21; Start 09/10/18 at 09:00 Lisinopril (Prinivil) 2.5 mg DAILY PO ; Start 09/10/18 at 09:00; Stop at 13:13; Status DC Non-Formulary Medication (Tiotropium Lawrence (Spiriva)) 2 inh DAILY IH ; Start 09/10/18 at 09:00; Status UNV Warfarin Sodium (Coumadin) 7.5 mg DAILY16 PO ; Start 09/09/18 at 18:00; Stop 09/10/18 at 16:34; Status DC Insulin Human Lispro (HumaLOG) 0-9 UNITS TIDWMEALS SQ ; Start 09/10/18 at 08:00 ; Stop 09/11/18 at 13:13; Status DC Dextrose (Dextrose 50%-Water Syringe) 12.5 gm PRN Q15MIN PRN IV SEE COMMENTS; Start 09/09/18 at 17:15; Stop 09/12/18 at 08:17; Status DC Miscellaneous (Lidoderm Patch Removal) 1 ea QHS MC Last administered on at 21:00; Start 09/09/18 at 21:00 Albuterol/ Ipratropium (Duoneb) 3 ml RTQID NEB Last administered on 09/17/18at 11:20; Start 09/09/18 at 20:00 Warfarin Sodium (Coumadin Per Physician) 1 each PRN DAILY PRN MC SEE COMMENTS Last administered on 09/11/18at 11:21; Start 09/09/18 at 17:30; Stop 09/11/18 at 13:13; Status DC Sodium Chloride 1,000 ml @ 75 mls/hr [id number] IV ; Start 09/09/18 at 17:30; Stop 09/10/18 at 10:35; Status DC Lorazepam (Ativan) 2 mg 1X ONCE IV Last administered on 09/09/18at 17:30; Start 09/09/18 at 17:30; Stop 09/09/18 at 17:31; Status DC Clonidine HCl (Catapres) 0.1 mg PRN Q1HR PRN PO SBP > 180 or DBP > 100, MRX3; Start 09/09/18 at 17:30 Lorazepam (Ativan) 2 mg PRN Q15MIN PRN IV CIWA 8-14 Last administered on at 20:38; Start 09/09/18 at 17:30; Stop 09/15/18 at 12:06; Status DC Albuterol/ Ipratropium (Duoneb) 3 ml 1X ONCE NEB ; Start 09/09/18 at 17:30; Stop 09/09/18 at 17:31; Status DC Levofloxacin/ Dextrose 150 ml @ 100 mls/hr 1X ONCE IV Last administered on at 21:03; Start 09/09/18 at 17:30; Stop 09/09/18 at 18:59; Status DC Albuterol/ Ipratropium (Duoneb) 3 ml RTQID NEB ; Start 09/09/18 at 20:00; Status UNV Guaifenesin (Robitussin Dm) 10 ml PRN Q6HRS PRN PO COUGH; Start 09/09/18 at 19 :00 Levofloxacin/ Dextrose (Levaquin Per Pharmacy) 1 each PRN DAILY PRN MC SEE COMMENTS; Start 09/09/18 at 19:00; Stop 09/11/18 at 09:24; Status DC Heparin Sodium (Porcine) (Heparin Sodium) 5,000 unit Q8HRS SQ Last administered on 09/11/18at 05:48; Start 09/09/18 at 22:00; Stop 09/12/18 at 11 :01; Status DC Levofloxacin/ Dextrose 50 ml @ 50 mls/hr Q24H IV ; Start 09/10/18 at 20:00; Stop 09/10/18 at 20:00; Status DC Haloperidol Lactate (Haldol Inj) 5 mg PRN Q6HRS PRN IVP AGITATION Last administered on 09/15/18at 23:00; Start 09/10/18 at 01:15 Famotidine (Pepcid Vial) 20 mg QHS IVP Last administered on 09/12/18at 20:47; Start 09/10/18 at 21:00; Stop 09/13/18 at 08:50; Status DC Methylprednisolone Sodium Succinate (SOLU-Medrol 40MG VIAL) 40 mg Q12HR IV Last administered on 09/14/18at 08:24; Start 09/10/18 at 09:00; Stop 09/14/18 at 12:49; Status DC Chlordiazepoxide (Librium) 50 mg PRN Q6HRS PRN PO ANXIETY/AGITATION, 2ND CHOICE ; Start 09/10/18 at 10:45; Stop 09/17/18 at 14:33; Status DC Lorazepam (Ativan) 1 mg PRN DAILY PRN PO ANXIETY / AGITATION, 1ST CHOIC; Start 09/10/18 at 10:45; Stop 09/15/18 at 12:06; Status DC Dexmedetomidine HCl 200 mcg/ Sodium Chloride 50 ml @ 0 mls/hr CONT PRN IV PER PROTOCOL Last administered on 09/15/18at 09:03; Start 09/10/18 at 13:30; Stop 09/15/18 at 12:06; Status DC Sodium Chloride 500 ml @ 500 mls/hr 1X PRN PRN IV SEE COMMENTS; Start at 13:30 Atropine Sulfate (ATROPINE 0.5mg SYRINGE) 0.5 mg PRN Q5MIN PRN IV SEE COMMENTS ; Start 09/10/18 at 13:30; Stop 09/12/18 at 13:15; Status DC Levofloxacin/ Dextrose 100 ml @ 100 mls/hr Q24H IV Last administered on at 20:48; Start 09/10/18 at 20:00; Stop 09/11/18 at 09:36; Status DC Enalaprilat (Vasotec Inj) 1.25 mg PRN Q4HRS PRN IVP HYPERTENSION, 1ST CHOICE Last administered on 09/16/18at 20:51; Start 09/11/18 at 02:45 Vancomycin HCl (Vanco Per Pharmacy) 1 each PRN DAILY PRN MC SEE COMMENTS Last administered on 09/14/18at 12:16; Start 09/11/18 at 09:15; Stop 09/15/18 at 10 :49; Status DC Vancomycin HCl 2 gm/Sodium Chloride 500 ml @ 250 mls/hr 1X ONCE IV Last administered on 09/11/18at 10:40; Start 09/11/18 at 09:30; Stop 09/11/18 at 11 :29; Status DC Doxycycline Hyclate (Vibra-Tab) 100 mg BID PO ; Start 09/11/18 at 10:00; Stop 09/11/18 at 15:16; Status DC Cefepime HCl (Maxipime) 1 gm Q8H IVP Last administered on 09/17/18at 10:13; Start 09/11/18 at 10:00 Vancomycin HCl 1.75 gm/Sodium Chloride 500 ml @ 250 mls/hr Q12H IV Last administered on 09/12/18at 22:58; Start 09/11/18 at 23:00; Stop 09/12/18 at 23 :59; Status DC Vancomycin HCl (Vancomycin Trough Level) 1 each 1X ONCE MC Last administered on 09/12/18at 22:26; Start 09/12/18 at 22:30; Stop 09/12/18 at 22:31; Status DC Pantoprazole Sodium (PROTONIX VIAL for IV PUSH) 40 mg DAILYAC IVP Last administered on 09/17/18at 08:20; Start 09/11/18 at 12:30 Multivitamins 10 ml/Thiamine HCl 100 mg/Folic Acid 1 mg/Sodium Chloride 1,011.2 ml @ 0 mls/hr DAILY IV Last administered on 09/17/18at 08:41; Start 09/11/18 at 14:00 Insulin Human Lispro (HumaLOG) 0-7 UNITS TIDWMEALS SQ ; Start 09/11/18 at 17:00 ; Stop 09/11/18 at 17:00; Status DC Dextrose (Dextrose 50%-Water Syringe) 12.5 gm PRN Q15MIN PRN IV SEE COMMENTS; Start 09/11/18 at 13:00 Insulin Human Lispro (HumaLOG) 0-7 UNITS Q6HRS SQ Last administered on at 05:41; Start 09/11/18 at 18:00 Levothyroxine Sodium 0.025 mcg/ Sodium Chloride 5 ml @ 0 mls/hr DAILY IVP ; Start 09/11/18 at 13:30; Stop 09/11/18 at 13:52; Status DC Magnesium Sulfate 50 ml @ 25 mls/hr 1X ONCE IV Last administered on at 15:40; Start 09/11/18 at 13:30; Stop 09/11/18 at 15:29; Status DC Levothyroxine Sodium 25 mcg/ Sodium Chloride 5 ml @ 0 mls/hr DAILY IVP Last administered on 09/17/18at 08:43; Start 09/11/18 at 13:52 Levothyroxine Sodium 25 mcg/ Sodium Chloride 5 ml @ 0 mls/hr 1X ONCE IVP Last administered on 09/11/18at 14:45; Start 09/11/18 at 14:45; Stop 09/11/18 at 14 :46; Status DC Doxycycline Hyclate 100 mg/ Dextrose 100 ml @ 50 mls/hr Q12HR IV Last administered on 09/17/18at 08:21; Start 09/11/18 at 16:00 Magnesium Sulfate 50 ml @ 25 mls/hr 1X ONCE IV Last administered on at 12:56; Start 09/12/18 at 11:30; Stop 09/12/18 at 13:29; Status DC Amino Acids/ Glycerin/ Electrolytes 1,000 ml @ 50 mls/hr Q20H IV Last administered on 09/16/18at 18:15; Start 09/12/18 at 11:30 Haloperidol Lactate (Haldol Inj) 10 mg Q8HRS IVP Last administered on at 06:02; Start 09/12/18 at 14:00; Stop 09/16/18 at 13:14; Status DC Dexmedetomidine HCl 200 mcg/ Sodium Chloride 50 ml @ 0 mls/hr CONT PRN IV PER PROTOCOL; Start 09/12/18 at 13:15; Stop 09/12/18 at 14:04; Status DC Sodium Chloride 500 ml @ 500 mls/hr 1X PRN PRN IV SEE COMMENTS; Start at 13:15 Atropine Sulfate (ATROPINE 0.5mg SYRINGE) 0.5 mg PRN Q5MIN PRN IV SEE COMMENTS ; Start 09/12/18 at 13:15 Morphine Sulfate (Morphine Sulfate) 2 mg PRN Q2HR PRN IV PAIN Last administered on 09/14/18at 05:10; Start 09/12/18 at 13:15; Stop 09/14/18 at 12 :57; Status DC Metoprolol Tartrate (Lopressor) 25 mg BID PO ; Start 09/12/18 at 17:00; Stop 09/12/18 at 17:00; Status DC Metoprolol Tartrate (Lopressor Vial) 5 mg Q6HRS IVP Last administered on at 11:52; Start 09/12/18 at 18:00 Vancomycin HCl 2 gm/Sodium Chloride 500 ml @ 250 mls/hr Q12H IV Last administered on 09/14/18at 23:26; Start 09/13/18 at 11:00; Stop 09/15/18 at 10 :49; Status DC Vancomycin HCl (Vancomycin Trough Level) 1 each 1X ONCE MC Last administered on 09/14/18at 10:30; Start 09/14/18 at 10:30; Stop 09/14/18 at 10:31; Status DC Nitroglycerin (Nitro-Bid Oint) 1 inch Q6HRS TP Last administered on 09/17/18at 11:53; Start 09/14/18 at 08:30 Aspirin (Aspirin) 300 mg DAILY [place] Last administered on 09/17/18at 08:20; Start 09/14/18 at 11:00 Methylprednisolone Sodium Succinate (SOLU-Medrol 40MG VIAL) 40 mg DAILY IV Last administered on 09/17/18at 08:19; Start 09/15/18 at 09:00 Morphine Sulfate (Morphine Sulfate) 2 mg PRN Q2HR PRN IV PAIN Last administered on 09/17/18at 02:01; Start 09/14/18 at 13:00 Lorazepam (Ativan) 2 mg PRN Q4HRS PRN IV ANXIETY / AGITATION Last administered on 09/15/18at 23:00; Start 09/15/18 at 22:45; Stop 09/16/18 at 13:14; Status DC Haloperidol Lactate (Haldol Inj) 5 mg Q8HRS IVP Last administered on at 06:11; Start 09/16/18 at 14:00; Stop 09/17/18 at 09:42; Status DC Chlordiazepoxide (Librium) 50 mg Q6H PO ; Start 09/17/18 at 14:30; Status UNV Chlordiazepoxide (Librium) 50 mg PRN Q1HR PRN PO For CIWA 8-14; Start at 14:30; Status UNV Chlordiazepoxide (Librium) 100 mg PRN Q1HR PRN PO For CIWA 15 or greater; Start 09/17/18 at 14:30; Status UNV Haloperidol Lactate (Haldol Inj) 5 mg PRN Q4HRS PRN IVP Hallucinatns,Confusn, Delirium; Start 09/17/18 at 14:30; Status UNV Active Scripts Active Pantoprazole Sodium 40 Mg Tablet.dr 40 Mg PO DAILYAC Lidoderm (Lidocaine) 700 Mg Adh..patch 1 Patch TD DAILY 12hours on, 12 hours off Lisinopril 2.5 Mg Tablet 2.5 Mg PO DAILY Feosol (Ferrous Sulfate) 325 Mg Tablet 325 Mg PO DAILYAC Children's Aspirin (Aspirin) 81 Mg Tab.chew 81 Mg PO DAILYWBKFT Reported Ventolin Hfa Inhaler (Albuterol Sulfate) 18 Gm Hfa.aer.ad 2 Puff INH Q4HRS Mirtazapine 45 Mg Tablet 1 Tab PO QHS Glipizide 5 Mg Tablet 1 Tab PO BID Metformin Hcl 1,000 Mg Tablet 1,000 Mg PO BIDWMEALS Lantus (Insulin Glargine,Hum.rec.anlog) 100 Unit/1 Ml Vial 50 Unit SQ HS NITROGLYCERIN SubLingual (Nitroglycerin) 0.4 Mg Tab.subl 0.4 Mg SL PRN Q5MIN PRN Fluoxetine Hcl 20 Mg Capsule 3 Cap PO DAILY Novolin R (Insulin Regular, Human) 100 Unit/1 Ml Vial 100 Unit IJ QIDACHS Vitamin D3 (Cholecalciferol (Vitamin D3)) 1,000 Unit Tablet 1 Tab PO TID Vitamin B-12 (Cyanocobalamin (Vitamin B-12)) 1,000 Mcg Tablet 1 Tab PO DAILY Gemfibrozil 600 Mg Tablet 0.5 Tab PO BID Pepcid (Famotidine) 20 Mg Tablet 10 Mg PO BID Cardizem Cd (Diltiazem Hcl) 240 Mg Cap.er.24h 1 Cap PO DAILY Robaxin (Methocarbamol) 500 Mg Tablet 1 Tab PO BID PRN Niaspan (Niacin) 500 Mg Tab.er.24h 1 Tab PO QHS Gabapentin 600 Mg Tablet 300 Mg PO QID Symbicort 80-4.5 Mcg Inhaler (Budesonide/Formoterol Fumarate) 10.2 Gm Hfa.aer.ad 2 Puff IH BID Finasteride 5 Mg Tablet 1 Tab PO DAILY Levothyroxine Sodium 50 Mcg Tablet 1 Tab PO DAILY Tamsulosin Hcl 0.4 Mg Cap.er.24h 0.4 Mg PO BID Spiriva (Tiotropium Lawrence) 18 Mcg Cap.w.dev 2 Inh IH DAILY Hydrocodone-Apap 7.5-325 (Hydrocodone Bit/Acetaminophen) 1 Each Tablet 1 Tab PO Q4HRS PRN Metoprolol Tartrate 25 Mg Tablet 1 Tab PO BID Vitals/I & O Vital Sign - Last 24 Hours 09/16/18 09/16/18 09/16/18 09/16/18 15:00 15:54 16:00 16:00 Pulse 96 Resp 22 B/P (MAP) 138/89 (105) Pulse Ox 94 O2 Delivery Nasal Cannula Nasal Cannula Bi-pap O2 Flow Rate 4.0 3.0 4.0 09/16/18 09/16/18 09/16/18 09/16/18 16:00 17:00 18:00 18:24 Temp 98.6 98.6 Pulse 98 102 98 98 Resp B/P (MAP) 169/92 (117) 170/103 (125) 157/81 (106) 120/74 Pulse Ox 97 96 94 O2 Delivery Nasal Cannula Nasal Cannula Nasal Cannula O2 Flow Rate 4.0 4.0 4.0 09/16/18 09/16/18 09/16/18 09/16/18 18:52 19:00 19:17 20:00 Pulse 94 95 B/P (MAP) 163/73 166/87 (113) Pulse Ox 96 94 O2 Delivery Nasal Cannula Nasal Cannula O2 Flow Rate 4.0 3.0 4.0 09/16/18 09/16/18 09/16/18 09/16/18 20:00 20:00 20:51 21:00 Temp 98.9 98.9 Pulse 94 90 100 B/P (MAP) 199/97 (131) 217/102 155/93 (113) Pulse Ox 97 92 O2 Delivery Nasal Cannula Nasal Cannula O2 Flow Rate 4.0 4.0 4.0 09/16/18 09/16/18 09/16/18 09/17/18 21:15 22:00 23:00 00:00 Temp 98.7 98.7 Pulse 100 109 102 Resp B/P (MAP) 174/95 (121) 150/71 (97) 152/85 (107) Pulse Ox 95 96 92 95 O2 Delivery BiPAP/CPAP Nasal Cannula Nasal Cannula Nasal Cannula O2 Flow Rate 4.0 4.0 4.0 09/17/18 09/17/18 09/17/18 09/17/18 00:00 00:41 00:41 01:00 Pulse 109 108 92 B/P (MAP) 150/71 150/71 209/103 (138) Pulse Ox 96 O2 Delivery Nasal Cannula Nasal Cannula O2 Flow Rate 4.0 4.0 09/17/18 09/17/18 09/17/18 09/17/18 02:00 03:00 04:00 04:00 Temp 98.7 98.7 Pulse 106 102 102 B/P (MAP) 133/80 (97) 142/75 (97) 152/85 (107) Pulse Ox 95 95 95 O2 Delivery Nasal Cannula Nasal Cannula Nasal Cannula Nasal Cannula O2 Flow Rate 4.0 4.0 4.0 4.0 09/17/18 09/17/18 09/17/18 09/17/18 05:00 06:00 06:12 06:14 Pulse 100 102 113 108 B/P (MAP) 188/74 (112) 146/75 (98) 148/78 148/78 Pulse Ox 95 95 O2 Delivery Nasal Cannula Nasal Cannula O2 Flow Rate 4.0 4.0 09/17/18 09/17/18 09/17/18 09/17/18 07:00 07:49 08:00 08:00 Temp 98.2 98.2 Pulse 102 100 Resp 29 27 B/P (MAP) 146/89 (108) 132/94 (107) Pulse Ox 98 97 97 O2 Delivery Room Air Room Air Room Air Room Air 09/17/18 09/17/18 09/17/18 09/17/18 09:00 10:00 11:00 11:20 Pulse 96 94 99 Resp 23 24 20 B/P (MAP) 149/101 (117) 160/104 (122) 191/108 (135) Pulse Ox 98 98 98 98 O2 Delivery Room Air Room Air Room Air Room Air 09/17/18 09/17/18 09/17/18 09/17/18 11:26 11:52 11:53 12:00 Pulse 99 79 79 B/P (MAP) 191/108 192/111 192/111 O2 Delivery Room Air 09/17/18 09/17/18 12:00 13:00 Temp 98.3 98.3 Pulse 80 80 Resp 21 26 B/P (MAP) 173/95 (121) 173/107 (129) Pulse Ox 99 99 O2 Delivery Room Air Room Air Intake and Output 09/16/18 09/16/18 09/17/18 15:01 23:01 07:01 Intake Total 100 ml 1163.75 ml 40 ml Output Total 900 ml 905 ml 605 ml Balance -800 ml 258.75 ml -565 ml LESLEY PALM MD Sep 17, 2018 14:37
[2018-09-17] MEDS: AMINO AC 3%/ELECTROLYTE/GLYCER 1,000 ML IV SCH (14:52)
[2018-09-17] MEDS: chlordiazePOXIDE HCL 25 MG CAPSULE PO SCH ×2 (15:00→21:10)
[2018-09-17] MEDS ORDERED: NITROGLYCERIN PREMIX 250 ML IV PRN (15:30)
[2018-09-17] MEDS: PATCH REMOVAL. MC SCH (21:12)
[2018-09-18] VITALS (12 sets, daily range): BP systolic 92–167; BP diastolic 51–90
[2018-09-18] MEDS: METOPROLOL TARTRATE 5 MG/5 ML VIAL. IVP SCH ×4 (00:04→17:39)
[2018-09-18] MEDS: NITROGLYCERIN OINT 1 GM PACKET. TP SCH ×4 (00:05→17:45)
[2018-09-18] MEDS: INSULIN LISPRO 300 UNITS/3 ML INSULN.PEN. SQ SCH ×4 (00:12→17:34)
[2018-09-18] MEDS: CEFEPIME HCL IV Push 1 GM VIAL. IVP SCH ×3 (01:46→17:35)
[2018-09-18] MEDS: chlordiazePOXIDE HCL 25 MG CAPSULE PO SCH ×4 (03:30→20:50)
[2018-09-18 05:31] LABS: BASO # 0.1 x10^3/uL (0.0-0.2); BASO % 1 % (0-3); EOS # 0.1 x10^3/uL (0.0-0.7); EOS % 1 % (0-3); HEMOGLOBIN 12.9 g/dL (13.0-17.5); LYMPH # 2.3 x10^3/uL (1.0-4.8); LYMPH % 20 % (24-48); MEAN CORPUSCULAR HEMOGLOBIN 28 pg (25-35); MEAN CORPUSCULAR HGB CONC 33 g/dL (31-37); MEAN CORPUSCULAR VOLUME 84 fL (79-100); MONO % 9 % (0-9); NEUT # 7.9 x10^3uL (1.8-7.7); NEUT % 69 % (31-73); PLATELET COUNT 296 x10^3/uL (140-400); RED BLOOD COUNT 4.66 x10^6/uL (4.30-5.70); RED CELL DISTRIBUTION WIDTH 14.2 % (11.5-14.5); WHITE BLOOD COUNT 11.4 x10^3/uL (4.0-11.0)
[2018-09-18 05:39] LABS: CALCIUM 8.9 mg/dL (8.5-10.1); CREATININE 0.8 mg/dL (0.7-1.3); GFR 95.8; POTASSIUM 3.5 mmol/L (3.5-5.1)
--- NOTE | 2018-09-18 07:36 | PDOC ---
Infectious Disease Note Subjective Subjective awake, says is feeling better, off bipap ROS ROS no n/v/d/sob Vital Sign Vital Signs Vital Signs Date Time Temp Pulse Resp B/P (MAP) Pulse Ox O2 Delivery O2 Flow Rate FiO2 09/18/18 07:00 79 24 92/58 (69) 98 Room Air 09/18/18 04:00 97.7 97.7 Physical Exam PHYSICAL EXAM GENERAL: Resting quietly HEENT: Pupils are equal and reactive. Normal conjunctivae, Oral cavity pink, dry NECK: Supple LUNGS: Decreased in the bases. HEART: S1, S2 ABDOMEN: Obese, soft, no grimace or guarding to palpation : Mary EXTREMITIES: Trace edema. SKIN: Warm to touch without generalized signs of rash. NEUROLOGIC: Arouse to voice, confused recognizes his by name, Labs Lab Laboratory Tests Test 09/17/18 11:54 09/17/18 18:16 09/18/18 00:09 09/18/18 04:53 Glucose (Fingerstick) 176 mg/dL (70-99) 136 mg/dL (70-99) 106 mg/dL (70-99) Sodium Level 138 mmol/L (136-145) Potassium Level 3.5 mmol/L (3.5-5.1) Chloride Level 104 mmol/L (98-107) Carbon Dioxide Level 26 mmol/L (21-32) Anion Gap 8 (6-14) Blood Urea Nitrogen 14 mg/dL (8-26) Creatinine 0.8 mg/dL (0.7-1.3) Estimated GFR (Cockcroft-Gault) 95.8 Glucose Level 120 mg/dL (70-99) Calcium Level 8.9 mg/dL (8.5-10.1) Test 09/18/18 04:55 09/18/18 05:51 White Blood Count 11.4 x10^3/uL (4.0-11.0) Red Blood Count 4.66 x10^6/uL (4.30-5.70) Hemoglobin 12.9 g/dL (13.0-17.5) Hematocrit 39.0 % (39.0-53.0) Mean Corpuscular Volume 84 fL (79-100) Mean Corpuscular Hemoglobin 28 pg (25-35) Mean Corpuscular Hemoglobin Concent 33 g/dL (31-37) Red Cell Distribution Width 14.2 % (11.5-14.5) Platelet Count 296 x10^3/uL (140-400) Neutrophils (%) (Auto) 69 % (31-73) Lymphocytes (%) (Auto) 20 % (24-48) Monocytes (%) (Auto) 9 % (0-9) Eosinophils (%) (Auto) 1 % (0-3) Basophils (%) (Auto) 1 % (0-3) Neutrophils # (Auto) 7.9 x10^3uL (1.8-7.7) Lymphocytes # (Auto) 2.3 x10^3/uL (1.0-4.8) Monocytes # (Auto) 1.0 x10^3/uL (0.0-1.1) Eosinophils # (Auto) 0.1 x10^3/uL (0.0-0.7) Basophils # (Auto) 0.1 x10^3/uL (0.0-0.2) Glucose (Fingerstick) 112 mg/dL (70-99) Micro BC coag neg staph Objective Assessment Fever- better - procalcitonin and Sed rate normal Bacteremia ? sepsis 10/30 POA - GPC - ID pending - ECHO 09/12 very limited,, likely contaminant Encephalopathy - on Ativan - BP improving h/o ETOH and hydrocodone PCN allergy - has had amox H/o SVT Acute Resp failure - ? CAP vs AECOPD - on Bipap - on steroids HTN DO - hydrocodone Hematuria H/o Compression fractures h/o ETOH abuse Plan Plan of Care Cont Doxy and cefepime for now,, Off vanc Monitor labs Supportive care D/w MIRNA MADISON MD Sep 18, 2018 07:36
[2018-09-18] MEDS: ASPIRIN 300 MG SUPP.RECT PR SCH (08:26)
[2018-09-18] MEDS: PANTOPRAZOLE IV PUSH 40 MG VIAL. IVP SCH (08:27)
[2018-09-18] MEDS: methylPREDNISolone SOD SUCC PF 40 MG/ML VIAL. IV SCH (08:27)
[2018-09-18] MEDS: LIDOCAINE (700MG/PATCH) PATCH. TD SCH (08:28)
--- NOTE | 2018-09-18 08:46 | PDOC ---
PULMONARY PROGRESS NOTES Subjective off bipap and 02 Vitals Vital Signs Date Time Temp Pulse Resp B/P (MAP) Pulse Ox O2 Delivery O2 Flow Rate FiO2 09/18/18 08:00 Room Air 09/18/18 07:00 79 24 92/58 (69) 98 09/18/18 04:00 97.7 97.7 ROS: No Nausea, No Chest Pain, No Abdominal Pain, No Increase Cough General: Alert Lungs: Crackles Cardiovascular: S1, S2 Abdomen: Soft, Other (OBESE) Extremities: Other (EDEMA) Skin: Warm Labs Laboratory Tests Test 09/16/18 12:52 09/16/18 18:29 09/17/18 00:46 09/17/18 04:30 Glucose (Fingerstick) 151 mg/dL (70-99) 124 mg/dL (70-99) 124 mg/dL (70-99) White Blood Count 11.8 x10^3/uL (4.0-11.0) Red Blood Count 4.65 x10^6/uL (4.30-5.70) Hemoglobin 13.1 g/dL (13.0-17.5) Hematocrit 39.0 % (39.0-53.0) Mean Corpuscular Volume 84 fL (79-100) Mean Corpuscular Hemoglobin 28 pg (25-35) Mean Corpuscular Hemoglobin Concent 34 g/dL (31-37) Red Cell Distribution Width 14.3 % (11.5-14.5) Platelet Count 326 x10^3/uL (140-400) Neutrophils (%) (Auto) 71 % (31-73) Lymphocytes (%) (Auto) 18 % (24-48) Monocytes (%) (Auto) 10 % (0-9) Eosinophils (%) (Auto) 0 % (0-3) Basophils (%) (Auto) 1 % (0-3) Neutrophils # (Auto) 8.3 x10^3uL (1.8-7.7) Lymphocytes # (Auto) 2.1 x10^3/uL (1.0-4.8) Monocytes # (Auto) 1.2 x10^3/uL (0.0-1.1) Eosinophils # (Auto) 0.0 x10^3/uL (0.0-0.7) Basophils # (Auto) 0.1 x10^3/uL (0.0-0.2) Sodium Level 138 mmol/L (136-145) Potassium Level 3.5 mmol/L (3.5-5.1) Chloride Level 101 mmol/L (98-107) Carbon Dioxide Level 24 mmol/L (21-32) Anion Gap 13 (6-14) Blood Urea Nitrogen 18 mg/dL (8-26) Creatinine 0.7 mg/dL (0.7-1.3) Estimated GFR (Cockcroft-Gault) 111.8 Glucose Level 141 mg/dL (70-99) Calcium Level 9.5 mg/dL (8.5-10.1) Test 09/17/18 11:54 09/17/18 18:16 09/18/18 00:09 09/18/18 04:53 Glucose (Fingerstick) 176 mg/dL (70-99) 136 mg/dL (70-99) 106 mg/dL (70-99) Sodium Level 138 mmol/L (136-145) Potassium Level 3.5 mmol/L (3.5-5.1) Chloride Level 104 mmol/L (98-107) Carbon Dioxide Level 26 mmol/L (21-32) Anion Gap 8 (6-14) Blood Urea Nitrogen 14 mg/dL (8-26) Creatinine 0.8 mg/dL (0.7-1.3) Estimated GFR (Cockcroft-Gault) 95.8 Glucose Level 120 mg/dL (70-99) Calcium Level 8.9 mg/dL (8.5-10.1) Test 09/18/18 04:55 09/18/18 05:51 White Blood Count 11.4 x10^3/uL (4.0-11.0) Red Blood Count 4.66 x10^6/uL (4.30-5.70) Hemoglobin 12.9 g/dL (13.0-17.5) Hematocrit 39.0 % (39.0-53.0) Mean Corpuscular Volume 84 fL (79-100) Mean Corpuscular Hemoglobin 28 pg (25-35) Mean Corpuscular Hemoglobin Concent 33 g/dL (31-37) Red Cell Distribution Width 14.2 % (11.5-14.5) Platelet Count 296 x10^3/uL (140-400) Neutrophils (%) (Auto) 69 % (31-73) Lymphocytes (%) (Auto) 20 % (24-48) Monocytes (%) (Auto) 9 % (0-9) Eosinophils (%) (Auto) 1 % (0-3) Basophils (%) (Auto) 1 % (0-3) Neutrophils # (Auto) 7.9 x10^3uL (1.8-7.7) Lymphocytes # (Auto) 2.3 x10^3/uL (1.0-4.8) Monocytes # (Auto) 1.0 x10^3/uL (0.0-1.1) Eosinophils # (Auto) 0.1 x10^3/uL (0.0-0.7) Basophils # (Auto) 0.1 x10^3/uL (0.0-0.2) Glucose (Fingerstick) 112 mg/dL (70-99) Laboratory Tests Test 09/17/18 11:54 09/17/18 18:16 09/18/18 00:09 09/18/18 04:53 Glucose (Fingerstick) 176 mg/dL (70-99) 136 mg/dL (70-99) 106 mg/dL (70-99) Sodium Level 138 mmol/L (136-145) Potassium Level 3.5 mmol/L (3.5-5.1) Chloride Level 104 mmol/L (98-107) Carbon Dioxide Level 26 mmol/L (21-32) Anion Gap 8 (6-14) Blood Urea Nitrogen 14 mg/dL (8-26) Creatinine 0.8 mg/dL (0.7-1.3) Estimated GFR (Cockcroft-Gault) 95.8 Glucose Level 120 mg/dL (70-99) Calcium Level 8.9 mg/dL (8.5-10.1) Test 09/18/18 04:55 09/18/18 05:51 White Blood Count 11.4 x10^3/uL (4.0-11.0) Red Blood Count 4.66 x10^6/uL (4.30-5.70) Hemoglobin 12.9 g/dL (13.0-17.5) Hematocrit 39.0 % (39.0-53.0) Mean Corpuscular Volume 84 fL (79-100) Mean Corpuscular Hemoglobin 28 pg (25-35) Mean Corpuscular Hemoglobin Concent 33 g/dL (31-37) Red Cell Distribution Width 14.2 % (11.5-14.5) Platelet Count 296 x10^3/uL (140-400) Neutrophils (%) (Auto) 69 % (31-73) Lymphocytes (%) (Auto) 20 % (24-48) Monocytes (%) (Auto) 9 % (0-9) Eosinophils (%) (Auto) 1 % (0-3) Basophils (%) (Auto) 1 % (0-3) Neutrophils # (Auto) 7.9 x10^3uL (1.8-7.7) Lymphocytes # (Auto) 2.3 x10^3/uL (1.0-4.8) Monocytes # (Auto) 1.0 x10^3/uL (0.0-1.1) Eosinophils # (Auto) 0.1 x10^3/uL (0.0-0.7) Basophils # (Auto) 0.1 x10^3/uL (0.0-0.2) Glucose (Fingerstick) 112 mg/dL (70-99) Medications Active Scripts Medications Dose Route/Sig Max Daily Dose Days Date Category Dose Instructions Ventolin Hfa Inhaler (Albuterol Sulfate) 18 Gm Hfa.aer.ad 2 Puff INH Q4HRS 09/11/18 Reported Mirtazapine 45 Mg Tablet 1 Tab PO QHS 09/11/18 Reported Glipizide 5 Mg Tablet 1 Tab PO BID 09/11/18 Reported Metformin Hcl 1,000 Mg Tablet 1,000 Mg PO BIDWMEALS 09/11/18 Reported Lantus (Insulin Glargine,Hum.rec.anlog) 100 Unit/1 Ml Vial 50 Unit SQ HS 09/11/18 Reported NITROGLYCERIN SubLingual (Nitroglycerin) 0.4 Mg Tab.subl 0.4 Mg SL PRN Q5MIN PRN 09/11/18 Reported Fluoxetine Hcl 20 Mg Capsule 3 Cap PO DAILY 09/11/18 Reported Novolin R (Insulin Regular, Human) 100 Unit/1 Ml Vial 100 Unit IJ QIDACHS 09/11/18 Reported Vitamin D3 (Cholecalciferol (Vitamin D3)) 1,000 Unit Tablet 1 Tab PO TID 09/11/18 Reported Vitamin B-12 (Cyanocobalamin (Vitamin B-12)) 1,000 Mcg Tablet 1 Tab PO DAILY 09/11/18 Reported Gemfibrozil 600 Mg Tablet 0.5 Tab PO BID 09/11/18 Reported Pepcid (Famotidine) 20 Mg Tablet 10 Mg PO BID 09/11/18 Reported Cardizem Cd (Diltiazem Hcl) 240 Mg Cap.er.24h 1 Cap PO DAILY 09/11/18 Reported Robaxin (Methocarbamol) 500 Mg Tablet 1 Tab PO BID PRN 09/11/18 Reported Niaspan (Niacin) 500 Mg Tab.er.24h 1 Tab PO QHS 09/11/18 Reported Gabapentin 600 Mg Tablet 300 Mg PO QID 09/11/18 Reported Pantoprazole Sodium 40 Mg Tablet.dr 40 Mg PO DAILYAC 07/16/16 Rx Lidoderm (Lidocaine) 700 Mg Adh..patch 1 Patch TD DAILY 07/16/16 Rx 12hours on, 12 hours off Lisinopril 2.5 Mg Tablet 2.5 Mg PO DAILY 07/16/16 Rx Feosol (Ferrous Sulfate) 325 Mg Tablet 325 Mg PO DAILYAC 07/16/16 Rx Children's Aspirin (Aspirin) 81 Mg Tab.chew 81 Mg PO DAILYWBKFT 07/16/16 Rx Symbicort 80-4.5 Mcg Inhaler (Budesonide/Formoterol Fumarate) 10.2 Gm Hfa.aer.ad 2 Puff IH BID 07/09/16 Reported Finasteride 5 Mg Tablet 1 Tab PO DAILY 07/09/16 Reported Levothyroxine Sodium 50 Mcg Tablet 1 Tab PO DAILY 07/09/16 Reported Tamsulosin Hcl 0.4 Mg Cap.er.24h 0.4 Mg PO BID 07/09/16 Reported Spiriva (Tiotropium [place]) 18 Mcg Cap.w.dev 2 Inh IH DAILY 07/09/16 Reported Hydrocodone-Apap 7.5-325 (Hydrocodone Bit/Acetaminophen) 1 Each Tablet 1 Tab PO Q4HRS PRN 07/09/16 Reported Metoprolol Tartrate 25 Mg Tablet 1 Tab PO BID 07/09/16 Reported Comments IMPRESSION: Mild patchy opacities in the right lung base may be secondary to subsegmental atelectasis or pneumonia. Findings of COPD. Impression . IMPRESSION: 1. Acute hypoxemic respiratory failure, multifactorial in etiolog 2. Abnormal chest x-ray/PNEUMONIA 3. Acute exacerbation of chronic obstructive pulmonary disease. 4. Acute bronchitis versus pneumonia. 5. METABOLIC/TOXIC Encephalopathy POA 6. Acute kidney injury. 7. Obstructive sleep apnea-hypopnea syndrome. 8. CAD S/P CABG 9. Hypertension. 10. BACTEREMIA/SEPSIS PER ID Impression: Right internal jugular catheter terminates at the expected level of the superior aspect of the superior vena cava. No pneumothorax. Pulmonary vasculature congestion. Plan . OK TO TRANSFER BETTER TODAY WILL D/C HALDOL D/C ATIVAN ANTIBX PER ID CONTINUE BIPAP QHS STEROIDS DECREASE RA sat >92% off BIPAP PRN Ativan/Librium scheduled ARLYN FENTON MD Sep 18, 2018 08:46
[2018-09-18] MEDS: DOXYCYCLINE HYCLATE 100 MG in IV DEXTROSE 5% 100ML 100 ML IV SCH ×2 (08:55→20:49)
[2018-09-18] MEDS: MULTIVIT INFUSN,ADULT 4,VIT K 10 ML, THIAMINE INJ 100 MG, FOLIC ACID INJ 1 MG in IV NOR... IV SCH (08:55)
[2018-09-18] MEDS: NORMAL SALINE IVP SCH (09:04)
[2018-09-18] MEDS: LEVOTHYROXINE SODIUM IVP SCH (09:04)
[2018-09-18] MEDS: IPRATRPIUM/ALBUTEROL 0.5/2.5MG 3 ML NEBU. NEB SCH ×4 (09:17→19:54)
--- NOTE | 2018-09-18 10:39 | PDOC ---
PROGRESS NOTES Chief Complaint Chief Complaint Alcohol withdrawal Rhabdomyolysis- acute kidney injury secondary to above Hypercapnic/hypoxic respiratory failure in a super morbidly obese on NIPPV SABRINA, need CPAP at night Possible pickwickian syndrome CAP/atelectasis on chest x-ray History of CAD, CABG COPD flare History of sepsis/UTI History of IBS, alternating bowel movements History of alcoholism AK I on CK D/ VMN Diabetes Acute on chronic back pain-took 15 [place] in before the hospital stay Accel hypertension History of Present Illness History of Present Illness Admitted with rhabdo and respiratory failure combined hypoxic/hypercapneic on BIPAP Patient seen and examined in ICU Spoke to nursing at bedside. Spoke with patient's at the bedside Off BIPAP currently, working with PT/OT currently, recovering in ICU. Still dyspneic A/P: Respiratory failure - prn BIPAP, ok for transfer to the floor Vitals Vitals Vital Signs Date Time Temp Pulse Resp B/P (MAP) Pulse Ox O2 Delivery O2 Flow Rate FiO2 09/18/18 09:18 98 Room Air 09/18/18 08:00 97.7 76 25 167/87 (113) 97.7 Physical Exam Physical Exam GENERAL: Resting quietly HEENT: Pupils are equal and reactive. Normal conjunctivae, Oral cavity pink, dry NECK: Supple LUNGS: Decreased in the bases. HEART: S1, S2 ABDOMEN: Obese, soft, no grimace or guarding to palpation : Mary EXTREMITIES: Trace edema. SKIN: Warm to touch without generalized signs of rash. NEUROLOGIC: [place] to voice, confused recognizes his by name, General: Alert, mild distress, Other (confused) Heart: Regular rate, Normal S1, Normal S2, Other (distant heart tones. ) Lungs: Crackles Abdomen: Soft, Other (obese) Extremities: No edema, Normal pulses Skin: No significant lesion Labs LABS Laboratory Tests Test 09/17/18 11:54 09/17/18 18:16 09/18/18 00:09 09/18/18 04:53 Glucose (Fingerstick) 176 mg/dL (70-99) 136 mg/dL (70-99) 106 mg/dL (70-99) Sodium Level 138 mmol/L (136-145) Potassium Level 3.5 mmol/L (3.5-5.1) Chloride Level 104 mmol/L (98-107) Carbon Dioxide Level 26 mmol/L (21-32) Anion Gap 8 (6-14) Blood Urea Nitrogen 14 mg/dL (8-26) Creatinine 0.8 mg/dL (0.7-1.3) Estimated GFR (Cockcroft-Gault) 95.8 Glucose Level 120 mg/dL (70-99) Calcium Level 8.9 mg/dL (8.5-10.1) Test 09/18/18 04:55 09/18/18 05:51 White Blood Count 11.4 x10^3/uL (4.0-11.0) Red Blood Count 4.66 x10^6/uL (4.30-5.70) Hemoglobin 12.9 g/dL (13.0-17.5) Hematocrit 39.0 % (39.0-53.0) Mean Corpuscular Volume 84 fL (79-100) Mean Corpuscular Hemoglobin 28 pg (25-35) Mean Corpuscular Hemoglobin Concent 33 g/dL (31-37) Red Cell Distribution Width 14.2 % (11.5-14.5) Platelet Count 296 x10^3/uL (140-400) Neutrophils (%) (Auto) 69 % (31-73) Lymphocytes (%) (Auto) 20 % (24-48) Monocytes (%) (Auto) 9 % (0-9) Eosinophils (%) (Auto) 1 % (0-3) Basophils (%) (Auto) 1 % (0-3) Neutrophils # (Auto) 7.9 x10^3uL (1.8-7.7) Lymphocytes # (Auto) 2.3 x10^3/uL (1.0-4.8) Monocytes # (Auto) 1.0 x10^3/uL (0.0-1.1) Eosinophils # (Auto) 0.1 x10^3/uL (0.0-0.7) Basophils # (Auto) 0.1 x10^3/uL (0.0-0.2) Glucose (Fingerstick) 112 mg/dL (70-99) Assessment and Plan Assessmemt and Plan Problems Medical Problems: (1) Acute kidney injury Status: Acute (2) Alcohol withdrawal Status: Acute (3) Pneumonia Status: Acute (4) Rhabdomyolysis Status: Acute Comment Review of Relevant I have reviewed the following items barby (where applicable) has been applied. Labs Laboratory Tests Test 09/16/18 12:52 09/16/18 18:29 09/17/18 00:46 09/17/18 04:30 Glucose (Fingerstick) 151 mg/dL (70-99) 124 mg/dL (70-99) 124 mg/dL (70-99) White Blood Count 11.8 x10^3/uL (4.0-11.0) Red Blood Count 4.65 x10^6/uL (4.30-5.70) Hemoglobin 13.1 g/dL (13.0-17.5) Hematocrit 39.0 % (39.0-53.0) Mean Corpuscular Volume 84 fL (79-100) Mean Corpuscular Hemoglobin 28 pg (25-35) Mean Corpuscular Hemoglobin Concent 34 g/dL (31-37) Red Cell Distribution Width 14.3 % (11.5-14.5) Platelet Count 326 x10^3/uL (140-400) Neutrophils (%) (Auto) 71 % (31-73) Lymphocytes (%) (Auto) 18 % (24-48) Monocytes (%) (Auto) 10 % (0-9) Eosinophils (%) (Auto) 0 % (0-3) Basophils (%) (Auto) 1 % (0-3) Neutrophils # (Auto) 8.3 x10^3uL (1.8-7.7) Lymphocytes # (Auto) 2.1 x10^3/uL (1.0-4.8) Monocytes # (Auto) 1.2 x10^3/uL (0.0-1.1) Eosinophils # (Auto) 0.0 x10^3/uL (0.0-0.7) Basophils # (Auto) 0.1 x10^3/uL (0.0-0.2) Sodium Level 138 mmol/L (136-145) Potassium Level 3.5 mmol/L (3.5-5.1) Chloride Level 101 mmol/L (98-107) Carbon Dioxide Level 24 mmol/L (21-32) Anion Gap 13 (6-14) Blood Urea Nitrogen 18 mg/dL (8-26) Creatinine 0.7 mg/dL (0.7-1.3) Estimated GFR (Cockcroft-Gault) 111.8 Glucose Level 141 mg/dL (70-99) Calcium Level 9.5 mg/dL (8.5-10.1) Test 09/17/18 11:54 09/17/18 18:16 09/18/18 00:09 09/18/18 04:53 Glucose (Fingerstick) 176 mg/dL (70-99) 136 mg/dL (70-99) 106 mg/dL (70-99) Sodium Level 138 mmol/L (136-145) Potassium Level 3.5 mmol/L (3.5-5.1) Chloride Level 104 mmol/L (98-107) Carbon Dioxide Level 26 mmol/L (21-32) Anion Gap 8 (6-14) Blood Urea Nitrogen 14 mg/dL (8-26) Creatinine 0.8 mg/dL (0.7-1.3) Estimated GFR (Cockcroft-Gault) 95.8 Glucose Level 120 mg/dL (70-99) Calcium Level 8.9 mg/dL (8.5-10.1) Test 09/18/18 04:55 09/18/18 05:51 White Blood Count 11.4 x10^3/uL (4.0-11.0) Red Blood Count 4.66 x10^6/uL (4.30-5.70) Hemoglobin 12.9 g/dL (13.0-17.5) Hematocrit 39.0 % (39.0-53.0) Mean Corpuscular Volume 84 fL (79-100) Mean Corpuscular Hemoglobin 28 pg (25-35) Mean Corpuscular Hemoglobin Concent 33 g/dL (31-37) Red Cell Distribution Width 14.2 % (11.5-14.5) Platelet Count 296 x10^3/uL (140-400) Neutrophils (%) (Auto) 69 % (31-73) Lymphocytes (%) (Auto) 20 % (24-48) Monocytes (%) (Auto) 9 % (0-9) Eosinophils (%) (Auto) 1 % (0-3) Basophils (%) (Auto) 1 % (0-3) Neutrophils # (Auto) 7.9 x10^3uL (1.8-7.7) Lymphocytes # (Auto) 2.3 x10^3/uL (1.0-4.8) Monocytes # (Auto) 1.0 x10^3/uL (0.0-1.1) Eosinophils # (Auto) 0.1 x10^3/uL (0.0-0.7) Basophils # (Auto) 0.1 x10^3/uL (0.0-0.2) Glucose (Fingerstick) 112 mg/dL (70-99) Laboratory Tests Test 09/17/18 11:54 09/17/18 18:16 09/18/18 00:09 09/18/18 04:53 Glucose (Fingerstick) 176 mg/dL (70-99) 136 mg/dL (70-99) 106 mg/dL (70-99) Sodium Level 138 mmol/L (136-145) Potassium Level 3.5 mmol/L (3.5-5.1) Chloride Level 104 mmol/L (98-107) Carbon Dioxide Level 26 mmol/L (21-32) Anion Gap 8 (6-14) Blood Urea Nitrogen 14 mg/dL (8-26) Creatinine 0.8 mg/dL (0.7-1.3) Estimated GFR (Cockcroft-Gault) 95.8 Glucose Level 120 mg/dL (70-99) Calcium Level 8.9 mg/dL (8.5-10.1) Test 09/18/18 04:55 09/18/18 05:51 White Blood Count 11.4 x10^3/uL (4.0-11.0) Red Blood Count 4.66 x10^6/uL (4.30-5.70) Hemoglobin 12.9 g/dL (13.0-17.5) Hematocrit 39.0 % (39.0-53.0) Mean Corpuscular Volume 84 fL (79-100) Mean Corpuscular Hemoglobin 28 pg (25-35) Mean Corpuscular Hemoglobin Concent 33 g/dL (31-37) Red Cell Distribution Width 14.2 % (11.5-14.5) Platelet Count 296 x10^3/uL (140-400) Neutrophils (%) (Auto) 69 % (31-73) Lymphocytes (%) (Auto) 20 % (24-48) Monocytes (%) (Auto) 9 % (0-9) Eosinophils (%) (Auto) 1 % (0-3) Basophils (%) (Auto) 1 % (0-3) Neutrophils # (Auto) 7.9 x10^3uL (1.8-7.7) Lymphocytes # (Auto) 2.3 x10^3/uL (1.0-4.8) Monocytes # (Auto) 1.0 x10^3/uL (0.0-1.1) Eosinophils # (Auto) 0.1 x10^3/uL (0.0-0.7) Basophils # (Auto) 0.1 x10^3/uL (0.0-0.2) Glucose (Fingerstick) 112 mg/dL (70-99) Microbiology 09/09/18 Blood Culture - Final, Complete NO GROWTH AFTER 5 DAYS Medications Current Medications Thiamine Mononitrate (Vitamin B-1) 100 mg 1X STAT PO Last administered on at 14:50; Start 09/09/18 at 14:38; Stop 09/09/18 at 14:41; Status DC Folic Acid (Folic Acid) 1 mg 1X STAT PO Last administered on 09/09/18at 14:50 ; Start 09/09/18 at 14:38; Stop 09/09/18 at 14:41; Status DC Sodium Chloride 1,000 ml @ 1,000 mls/hr 1X ONCE IV Last administered on 09/09at 14:50; Start 09/09/18 at 15:00; Stop 09/09/18 at 15:59; Status DC Labetalol HCl (Normodyne Iv Push) 20 mg 1X ONCE IVP Last administered on 09/09at 16:53; Start 09/09/18 at 17:00; Stop 09/09/18 at 17:01; Status DC Chlordiazepoxide (Librium) 25 mg PRN Q6HRS PRN PO ANXIETY / AGITATION Last administered on 09/09/18at 22:35; Start 09/09/18 at 17:00; Stop 09/10/18 at 10 :35; Status DC Acetaminophen (Tylenol) 500 mg PRN Q6HRS PRN PO MILD PAIN / TEMP; Start at 17:00 Morphine Sulfate (Morphine Sulfate) 2 mg PRN Q2HR PRN IV MODERATE TO SEVERE PAIN Last administered on 09/12/18at 11:14; Start 09/09/18 at 17:00; Stop at 11:45; Status DC Sodium Chloride 1,000 ml @ 100 mls/hr Q10H IV Last administered on 09/09/18at 19:30; Start 09/09/18 at 18:00; Stop 09/10/18 at 10:35; Status DC Multivitamins (Thera M Plus) 1 tab DAILY PO ; Start 09/10/18 at 09:00; Stop at 13:13; Status DC Thiamine Mononitrate (Vitamin B-1) 100 mg DAILY PO ; Start 09/10/18 at 09:00; Stop 09/11/18 at 13:13; Status DC Folic Acid (Folic Acid) 1 mg DAILY PO ; Start 09/10/18 at 09:00; Stop at 13:13; Status DC Labetalol HCl (Normodyne Iv Push) 20 mg PRN Q2HR PRN IVP HYPERTENSION, 2ND CHOICE Last administered on 09/17/18at 14:47; Start 09/09/18 at 17:00 Nicotine (Nicoderm Cq 21mg) 1 patch PRN DAILY PRN TD SMOKING CESSATION; Start 09/09/18 at 17:15; Stop 09/11/18 at 13:13; Status DC Oxycodone/ Acetaminophen (Percocet 5/325) 1 tab PRN Q4HRS PRN PO SEVERE PAIN; Start 09/09/18 at 17:15; Stop 09/15/18 at 12:06; Status DC Diphenhydramine HCl (Benadryl) 25 mg PRN QHS PRN PO INSOMNIA; Start 09/09/18 at 17:15 Aspirin (Children'S Aspirin) 81 mg DAILYWBKFT PO ; Start 09/10/18 at 08:00; Stop 09/12/18 at 09:56; Status DC Atorvastatin Calcium (Lipitor) 40 mg QHS PO Last administered on 09/09/18at 21: 11; Start 09/09/18 at 21:00; Stop 09/12/18 at 09:56; Status DC Atorvastatin Calcium (Lipitor) 40 mg QHS PO ; Start 09/09/18 at 21:00; Status UNV Duloxetine HCl (Cymbalta) 30 mg BID PO Last administered on 09/09/18at 21:12; Start 09/09/18 at 21:00; Stop 09/11/18 at 13:13; Status DC Ferrous Sulfate (Feosol) 325 mg DAILYAC PO ; Start 09/10/18 at 07:30; Stop at 13:13; Status DC Finasteride (Proscar) 5 mg DAILY PO ; Start 09/10/18 at 09:00; Stop 09/12/18 at 09:56; Status DC Lorazepam (Ativan) 0.5 mg PRN DAILY PRN PO ANXIETY / AGITATION; Start at 17:15; Stop 09/10/18 at 10:35; Status DC Metoprolol Tartrate (Lopressor) 25 mg BID PO Last administered on 09/09/18at 21 :12; Start 09/09/18 at 21:00; Stop 09/11/18 at 13:19; Status DC Pantoprazole Sodium (Protonix) 40 mg DAILYAC PO ; Start 09/10/18 at 07:30; Stop 09/11/18 at 12:20; Status DC Tamsulosin HCl (Flomax) 0.4 mg DAILY PO ; Start 09/10/18 at 09:00; Stop at 09:56; Status DC Tramadol HCl (Ultram) 50 mg PRN Q6HRS PRN PO MODERATE PAIN; Start 09/09/18 at 17:15; Stop 09/15/18 at 12:06; Status DC Budesonide (Pulmicort) 0.5 mg RTBID NEB Last administered on 09/12/18at 07:47; Start 09/09/18 at 20:00; Stop 09/12/18 at 11:45; Status DC Diltiazem HCl (Cardizem 24hr Cd) 120 mg DAILY PO ; Start 09/10/18 at 09:00; Stop 09/11/18 at 13:13; Status DC Insulin Glargine (Lantus) 10 units QHS SQ Last administered on 09/09/18at 21:49 ; Start 09/09/18 at 21:00; Stop 09/10/18 at 10:35; Status DC Levothyroxine Sodium (Synthroid) 50 mcg DAILY06 PO ; Start 09/10/18 at 06:00; Stop 09/12/18 at 09:56; Status DC Lidocaine (Lidoderm) 1 patch DAILY TD Last administered on 09/18/18at 08:28; Start 09/10/18 at 09:00 Lisinopril (Prinivil) 2.5 mg DAILY PO ; Start 09/10/18 at 09:00; Stop at 13:13; Status DC Non-Formulary Medication (Tiotropium [place] (Spiriva)) 2 inh DAILY IH ; Start 09/10/18 at 09:00; Status UNV Warfarin Sodium (Coumadin) 7.5 mg DAILY16 PO ; Start 09/09/18 at 18:00; Stop 09/10/18 at 16:34; Status DC Insulin Human Lispro (HumaLOG) 0-9 UNITS TIDWMEALS SQ ; Start 09/10/18 at 08:00 ; Stop 09/11/18 at 13:13; Status DC Dextrose (Dextrose 50%-Water Syringe) 12.5 gm PRN Q15MIN PRN IV SEE COMMENTS; Start 09/09/18 at 17:15; Stop 09/12/18 at 08:17; Status DC Miscellaneous (Lidoderm Patch Removal) 1 ea QHS MC Last administered on at 21:12; Start 09/09/18 at 21:00 Albuterol/ Ipratropium (Duoneb) 3 ml RTQID NEB Last administered on 09/18/18at 09:17; Start 09/09/18 at 20:00 Warfarin Sodium (Coumadin Per Physician) 1 each PRN DAILY PRN MC SEE COMMENTS Last administered on 09/11/18at 11:21; Start 09/09/18 at 17:30; Stop 09/11/18 at 13:13; Status DC Sodium Chloride 1,000 ml @ 75 mls/hr [id number] IV ; Start 09/09/18 at 17:30; Stop 09/10/18 at 10:35; Status DC Lorazepam (Ativan) 2 mg 1X ONCE IV Last administered on 09/09/18at 17:30; Start 09/09/18 at 17:30; Stop 09/09/18 at 17:31; Status DC Clonidine HCl (Catapres) 0.1 mg PRN Q1HR PRN PO SBP > 180 or DBP > 100, MRX3; Start 09/09/18 at 17:30 Lorazepam (Ativan) 2 mg PRN Q15MIN PRN IV CIWA 8-14 Last administered on at 20:38; Start 09/09/18 at 17:30; Stop 09/15/18 at 12:06; Status DC Albuterol/ Ipratropium (Duoneb) 3 ml 1X ONCE NEB ; Start 09/09/18 at 17:30; Stop 09/09/18 at 17:31; Status DC Levofloxacin/ Dextrose 150 ml @ 100 mls/hr 1X ONCE IV Last administered on at 21:03; Start 09/09/18 at 17:30; Stop 09/09/18 at 18:59; Status DC Albuterol/ Ipratropium (Duoneb) 3 ml RTQID NEB ; Start 09/09/18 at 20:00; Status UNV Guaifenesin (Robitussin Dm) 10 ml PRN Q6HRS PRN PO COUGH; Start 09/09/18 at 19 :00 Levofloxacin/ Dextrose (Levaquin Per Pharmacy) 1 each PRN DAILY PRN MC SEE COMMENTS; Start 09/09/18 at 19:00; Stop 09/11/18 at 09:24; Status DC Heparin Sodium (Porcine) (Heparin Sodium) 5,000 unit Q8HRS SQ Last administered on 09/11/18at 05:48; Start 09/09/18 at 22:00; Stop 09/12/18 at 11 :01; Status DC Levofloxacin/ Dextrose 50 ml @ 50 mls/hr Q24H IV ; Start 09/10/18 at 20:00; Stop 09/10/18 at 20:00; Status DC Haloperidol Lactate (Haldol Inj) 5 mg PRN Q6HRS PRN IVP AGITATION Last administered on 09/15/18at 23:00; Start 09/10/18 at 01:15 Famotidine (Pepcid Vial) 20 mg QHS IVP Last administered on 09/12/18at 20:47; Start 09/10/18 at 21:00; Stop 09/13/18 at 08:50; Status DC Methylprednisolone Sodium Succinate (SOLU-Medrol 40MG VIAL) 40 mg Q12HR IV Last administered on 09/14/18at 08:24; Start 09/10/18 at 09:00; Stop 09/14/18 at 12:49; Status DC Chlordiazepoxide (Librium) 50 mg PRN Q6HRS PRN PO ANXIETY/AGITATION, 2ND CHOICE ; Start 09/10/18 at 10:45; Stop 09/17/18 at 14:33; Status DC Lorazepam (Ativan) 1 mg PRN DAILY PRN PO ANXIETY / AGITATION, 1ST CHOIC; Start 09/10/18 at 10:45; Stop 09/15/18 at 12:06; Status DC Dexmedetomidine HCl 200 mcg/ Sodium Chloride 50 ml @ 0 mls/hr CONT PRN IV PER PROTOCOL Last administered on 09/15/18at 09:03; Start 09/10/18 at 13:30; Stop 09/15/18 at 12:06; Status DC Sodium Chloride 500 ml @ 500 mls/hr 1X PRN PRN IV SEE COMMENTS; Start at 13:30 Atropine Sulfate (ATROPINE 0.5mg SYRINGE) 0.5 mg PRN Q5MIN PRN IV SEE COMMENTS ; Start 09/10/18 at 13:30; Stop 09/12/18 at 13:15; Status DC Levofloxacin/ Dextrose 100 ml @ 100 mls/hr Q24H IV Last administered on at 20:48; Start 09/10/18 at 20:00; Stop 09/11/18 at 09:36; Status DC Enalaprilat (Vasotec Inj) 1.25 mg PRN Q4HRS PRN IVP HYPERTENSION, 1ST CHOICE Last administered on 09/16/18at 20:51; Start 09/11/18 at 02:45 Vancomycin HCl (Vanco Per Pharmacy) 1 each PRN DAILY PRN MC SEE COMMENTS Last administered on 09/14/18at 12:16; Start 09/11/18 at 09:15; Stop 09/15/18 at 10 :49; Status DC Vancomycin HCl 2 gm/Sodium Chloride 500 ml @ 250 mls/hr 1X ONCE IV Last administered on 09/11/18at 10:40; Start 09/11/18 at 09:30; Stop 09/11/18 at 11 :29; Status DC Doxycycline Hyclate (Vibra-Tab) 100 mg BID PO ; Start 09/11/18 at 10:00; Stop 09/11/18 at 15:16; Status DC Cefepime HCl (Maxipime) 1 gm Q8H IVP Last administered on 09/18/18at 10:26; Start 09/11/18 at 10:00 Vancomycin HCl 1.75 gm/Sodium Chloride 500 ml @ 250 mls/hr Q12H IV Last administered on 09/12/18at 22:58; Start 09/11/18 at 23:00; Stop 09/12/18 at 23 :59; Status DC Vancomycin HCl (Vancomycin Trough Level) 1 each 1X ONCE MC Last administered on 09/12/18at 22:26; Start 09/12/18 at 22:30; Stop 09/12/18 at 22:31; Status DC Pantoprazole Sodium (PROTONIX VIAL for IV PUSH) 40 mg DAILYAC IVP Last administered on 09/18/18at 08:27; Start 09/11/18 at 12:30 Multivitamins 10 ml/Thiamine HCl 100 mg/Folic Acid 1 mg/Sodium Chloride 1,011.2 ml @ 0 mls/hr DAILY IV Last administered on 09/18/18at 08:55; Start 09/11/18 at 14:00 Insulin Human Lispro (HumaLOG) 0-7 UNITS TIDWMEALS SQ ; Start 09/11/18 at 17:00 ; Stop 09/11/18 at 17:00; Status DC Dextrose (Dextrose 50%-Water Syringe) 12.5 gm PRN Q15MIN PRN IV SEE COMMENTS; Start 09/11/18 at 13:00 Insulin Human Lispro (HumaLOG) 0-7 UNITS Q6HRS SQ Last administered on at 05:41; Start 09/11/18 at 18:00 Levothyroxine Sodium 0.025 mcg/ Sodium Chloride 5 ml @ 0 mls/hr DAILY IVP ; Start 09/11/18 at 13:30; Stop 09/11/18 at 13:52; Status DC Magnesium Sulfate 50 ml @ 25 mls/hr 1X ONCE IV Last administered on at 15:40; Start 09/11/18 at 13:30; Stop 09/11/18 at 15:29; Status DC Levothyroxine Sodium 25 mcg/ Sodium Chloride 5 ml @ 0 mls/hr DAILY IVP Last administered on 09/18/18at 09:04; Start 09/11/18 at 13:52 Levothyroxine Sodium 25 mcg/ Sodium Chloride 5 ml @ 0 mls/hr 1X ONCE IVP Last administered on 09/11/18at 14:45; Start 09/11/18 at 14:45; Stop 09/11/18 at 14 :46; Status DC Doxycycline Hyclate 100 mg/ Dextrose 100 ml @ 50 mls/hr Q12HR IV Last administered on 09/18/18at 08:55; Start 09/11/18 at 16:00 Magnesium Sulfate 50 ml @ 25 mls/hr 1X ONCE IV Last administered on at 12:56; Start 09/12/18 at 11:30; Stop 09/12/18 at 13:29; Status DC Amino Acids/ Glycerin/ Electrolytes 1,000 ml @ 50 mls/hr Q20H IV Last administered on 09/17/18at 14:52; Start 09/12/18 at 11:30 Haloperidol Lactate (Haldol Inj) 10 mg Q8HRS IVP Last administered on at 06:02; Start 09/12/18 at 14:00; Stop 09/16/18 at 13:14; Status DC Dexmedetomidine HCl 200 mcg/ Sodium Chloride 50 ml @ 0 mls/hr CONT PRN IV PER PROTOCOL; Start 09/12/18 at 13:15; Stop 09/12/18 at 14:04; Status DC Sodium Chloride 500 ml @ 500 mls/hr 1X PRN PRN IV SEE COMMENTS; Start at 13:15 Atropine Sulfate (ATROPINE 0.5mg SYRINGE) 0.5 mg PRN Q5MIN PRN IV SEE COMMENTS ; Start 09/12/18 at 13:15 Morphine Sulfate (Morphine Sulfate) 2 mg PRN Q2HR PRN IV PAIN Last administered on 09/14/18at 05:10; Start 09/12/18 at 13:15; Stop 09/14/18 at 12 :57; Status DC Metoprolol Tartrate (Lopressor) 25 mg BID PO ; Start 09/12/18 at 17:00; Stop 09/12/18 at 17:00; Status DC Metoprolol Tartrate (Lopressor Vial) 5 mg Q6HRS IVP Last administered on at 06:06; Start 09/12/18 at 18:00 Vancomycin HCl 2 gm/Sodium Chloride 500 ml @ 250 mls/hr Q12H IV Last administered on 09/14/18at 23:26; Start 09/13/18 at 11:00; Stop 09/15/18 at 10 :49; Status DC Vancomycin HCl (Vancomycin Trough Level) 1 each 1X ONCE MC Last administered on 09/14/18at 10:30; Start 09/14/18 at 10:30; Stop 09/14/18 at 10:31; Status DC Nitroglycerin (Nitro-Bid Oint) 1 inch Q6HRS TP Last administered on 09/18/18at 06:07; Start 09/14/18 at 08:30 Aspirin (Aspirin) 300 mg DAILY FL Last administered on 09/18/18at 08:26; Start 09/14/18 at 11:00 Methylprednisolone Sodium Succinate (SOLU-Medrol 40MG VIAL) 40 mg DAILY IV Last administered on 09/18/18at 08:27; Start 09/15/18 at 09:00 Morphine Sulfate (Morphine Sulfate) 2 mg PRN Q2HR PRN IV PAIN Last administered on 09/17/18at 02:01; Start 09/14/18 at 13:00 Lorazepam (Ativan) 2 mg PRN Q4HRS PRN IV ANXIETY / AGITATION Last administered on 09/15/18at 23:00; Start 09/15/18 at 22:45; Stop 09/16/18 at 13:14; Status DC Haloperidol Lactate (Haldol Inj) 5 mg Q8HRS IVP Last administered on at 06:11; Start 09/16/18 at 14:00; Stop 09/17/18 at 09:42; Status DC Chlordiazepoxide (Librium) 50 mg Q6H PO Last administered on 09/18/18at 08:26; Start 09/17/18 at 15:00 Chlordiazepoxide (Librium) 50 mg PRN Q1HR PRN PO For CIWA 8-14; Start at 14:30 Chlordiazepoxide (Librium) 100 mg PRN Q1HR PRN PO For CIWA 15 or greater; Start 09/17/18 at 14:30 Haloperidol Lactate (Haldol Inj) 5 mg PRN Q4HRS PRN IVP Hallucinatns,Confusn, Delirium; Start 09/17/18 at 14:30 Nitroglycerin/ Dextrose 250 ml @ 1.5 mls/hr CONT PRN IV SEE I/O RECORD; Start 09/17/18 at 15:30 Lorazepam (Ativan) 1 mg PRN Q4HRS PRN IV ANXIETY / AGITATION; Start 09/17/18 at 15:45 Lorazepam (Ativan) 2 mg PRN Q4HRS PRN IV ANXIETY / AGITATION Last administered on 09/18/18at 01:00; Start 09/17/18 at 16:00 Active Scripts Active Pantoprazole Sodium 40 Mg Tablet.dr 40 Mg PO DAILYAC Lidoderm (Lidocaine) 700 Mg Adh..patch 1 Patch TD DAILY 12hours on, 12 hours off Lisinopril 2.5 Mg Tablet 2.5 Mg PO DAILY Feosol (Ferrous Sulfate) 325 Mg Tablet 325 Mg PO DAILYAC Children's Aspirin (Aspirin) 81 Mg Tab.chew 81 Mg PO DAILYWBKFT Reported Ventolin Hfa Inhaler (Albuterol Sulfate) 18 Gm Hfa.aer.ad 2 Puff INH Q4HRS Mirtazapine 45 Mg Tablet 1 Tab PO QHS Glipizide 5 Mg Tablet 1 Tab PO BID Metformin Hcl 1,000 Mg Tablet 1,000 Mg PO BIDWMEALS Lantus (Insulin Glargine,Hum.rec.anlog) 100 Unit/1 Ml Vial 50 Unit SQ HS NITROGLYCERIN SubLingual (Nitroglycerin) 0.4 Mg Tab.subl 0.4 Mg SL PRN Q5MIN PRN Fluoxetine Hcl 20 Mg Capsule 3 Cap PO DAILY Novolin R (Insulin Regular, Human) 100 Unit/1 Ml Vial 100 Unit IJ QIDACHS Vitamin D3 (Cholecalciferol (Vitamin D3)) 1,000 Unit Tablet 1 Tab PO TID Vitamin B-12 (Cyanocobalamin (Vitamin B-12)) 1,000 Mcg Tablet 1 Tab PO DAILY Gemfibrozil 600 Mg Tablet 0.5 Tab PO BID Pepcid (Famotidine) 20 Mg Tablet 10 Mg PO BID Cardizem Cd (Diltiazem Hcl) 240 Mg Cap.er.24h 1 Cap PO DAILY Robaxin (Methocarbamol) 500 Mg Tablet 1 Tab PO BID PRN Niaspan (Niacin) 500 Mg Tab.er.24h 1 Tab PO QHS Gabapentin 600 Mg Tablet 300 Mg PO QID Symbicort 80-4.5 Mcg Inhaler (Budesonide/Formoterol Fumarate) 10.2 Gm Hfa.aer.ad 2 Puff IH BID Finasteride 5 Mg Tablet 1 Tab PO DAILY Levothyroxine Sodium 50 Mcg Tablet 1 Tab PO DAILY Tamsulosin Hcl 0.4 Mg Cap.er.24h 0.4 Mg PO BID Spiriva (Tiotropium [place]) 18 Mcg Cap.w.dev 2 Inh IH DAILY Hydrocodone-Apap 7.5-325 (Hydrocodone Bit/Acetaminophen) 1 Each Tablet 1 Tab PO Q4HRS PRN Metoprolol Tartrate 25 Mg Tablet 1 Tab PO BID Vitals/I & O Vital Sign - Last 24 Hours 09/17/18 09/17/18 09/17/18 09/17/18 11:00 11:20 11:26 11:52 Pulse 99 99 79 Resp 20 B/P (MAP) 191/108 (135) 191/108 192/111 Pulse Ox 98 98 O2 Delivery Room Air Room Air 09/17/18 09/17/18 09/17/18 09/17/18 11:53 12:00 12:00 13:00 Temp 98.3 98.3 Pulse 79 80 80 Resp 21 26 B/P (MAP) 192/111 173/95 (121) 173/107 (129) Pulse Ox 99 99 O2 Delivery Room Air Room Air Room Air 09/17/18 09/17/18 09/17/18 09/17/18 14:00 14:47 15:00 15:52 Pulse 82 84 82 Resp 24 25 B/P (MAP) 177/96 (123) 202/91 173/73 (106) Pulse Ox 98 99 99 O2 Delivery Room Air Room Air Room Air 09/17/18 09/17/18 09/17/18 09/17/18 16:00 16:00 17:00 18:00 Temp 98.4 98.4 Pulse 78 82 76 Resp 24 26 B/P (MAP) 116/62 (80) 176/89 (118) 157/74 (101) Pulse Ox 98 99 98 O2 Delivery Room Air Room Air Room Air Room Air 09/17/18 09/17/18 09/17/18 09/17/18 18:02 18:03 19:00 19:30 Pulse 86 78 74 74 Resp 24 24 B/P (MAP) 180/91 180/91 163/105 (124) 158/89 (112) Pulse Ox 98 98 O2 Delivery Room Air Room Air 09/17/18 09/17/18 09/17/18 09/17/18 19:42 20:00 20:00 21:00 Temp 98.7 98.7 Pulse 76 86 Resp B/P (MAP) 157/86 (109) 137/82 (100) Pulse Ox 99 97 98 O2 Delivery Room Air Room Air Room Air Room Air 09/17/18 09/17/18 09/17/18 09/17/18 22:00 22:00 23:00 23:59 Pulse 80 81 86 Resp B/P (MAP) 139/73 (95) 169/80 (109) 138/68 (91) Pulse Ox 97 98 97 O2 Delivery Room Air Room Air Room Air Room Air 09/17/18 09/18/18 09/18/18 09/18/18 23:59 00:04 00:05 01:00 Temp 98.6 98.6 Pulse 87 87 87 82 Resp B/P (MAP) 112/62 (79) 112/62 112/62 139/80 (99) Pulse Ox 96 95 O2 Delivery Room Air Room Air 09/18/18 09/18/18 09/18/18 09/18/18 02:00 03:00 04:00 04:00 Temp 97.7 97.7 Pulse 79 84 79 Resp B/P (MAP) 114/66 (82) 133/78 (96) 115/56 (75) Pulse Ox 97 98 97 O2 Delivery Room Air Room Air Room Air Room Air 09/18/18 09/18/18 09/18/18 09/18/18 05:00 06:00 06:06 06:07 Pulse 75 84 84 84 Resp B/P (MAP) 114/60 (78) 111/51 (71) 111/51 111/51 Pulse Ox 97 97 O2 Delivery Room Air Room Air 09/18/18 09/18/18 09/18/18 09/18/18 07:00 08:00 08:00 09:18 Temp 97.7 97.7 Pulse 79 76 Resp B/P (MAP) 92/58 (69) 167/87 (113) Pulse Ox 98 97 98 O2 Delivery Room Air Room Air Room Air Room Air Intake and Output 09/17/18 09/17/18 09/18/18 15:01 23:01 07:01 Intake Total 100 ml 1640.64 ml 645 ml Output Total 790 ml 1195 ml 500 ml Balance -690 ml 445.64 ml 145 ml ALFRED PIERRE MD Sep 18, 2018 10:39
[2018-09-18] MEDS: AMINO AC 3%/ELECTROLYTE/GLYCER 1,000 ML IV SCH (11:48)
--- NOTE | 2018-09-18 12:44 | PDOC ---
PROGRESS NOTES Assessment Problems Medical Problems: (1) Acute kidney injury Status: Acute (2) Alcohol withdrawal Status: Acute (3) Pneumonia Status: Acute (4) Rhabdomyolysis Status: Acute Toxic encephalopathy due to narcotics. Hypertensive encephalopathy. Alcohol intoxication and component of Wernicke's monitored delirium tremens, hallucinations Brain MRI negative Plan Reduce chlordiazepoxide, scheduled dose, watch for sedation EEG later this week Discussed with Subjective denies pain Objective Vital Signs Date Time Temp Pulse Resp B/P (MAP) Pulse Ox O2 Delivery O2 Flow Rate FiO2 09/18/18 11:50 97 141/86 09/18/18 09:18 98 Room Air 09/18/18 08:00 97.7 25 97.7 Intake and Output 09/18/18 07:01 Intake Total 2385.64 ml Output Total 2485 ml Balance -99.36 ml IV Total 2385.64 ml Output Urine Total 2485 ml PHYSICAL EXAM Alert. Oriented to person only, follows commands. Not hallucinating PERRL. EOMI. CN: no focal findings. Muscle tone: normal. Muscle strength: 4/5 DTR: 1+ Plantar reflex: Flexor Gait: not examined in bed. Sensory exam: no abnormal findings. Cerebellar: No limb ataxia, tremulousness much better Review of Relevant I have reviewed the following items barby (where applicable) has been applied. Labs Laboratory Tests Test 09/16/18 12:52 09/16/18 18:29 09/17/18 00:46 09/17/18 04:30 Glucose (Fingerstick) 151 mg/dL (70-99) 124 mg/dL (70-99) 124 mg/dL (70-99) White Blood Count 11.8 x10^3/uL (4.0-11.0) Red Blood Count 4.65 x10^6/uL (4.30-5.70) Hemoglobin 13.1 g/dL (13.0-17.5) Hematocrit 39.0 % (39.0-53.0) Mean Corpuscular Volume 84 fL (79-100) Mean Corpuscular Hemoglobin 28 pg (25-35) Mean Corpuscular Hemoglobin Concent 34 g/dL (31-37) Red Cell Distribution Width 14.3 % (11.5-14.5) Platelet Count 326 x10^3/uL (140-400) Neutrophils (%) (Auto) 71 % (31-73) Lymphocytes (%) (Auto) 18 % (24-48) Monocytes (%) (Auto) 10 % (0-9) Eosinophils (%) (Auto) 0 % (0-3) Basophils (%) (Auto) 1 % (0-3) Neutrophils # (Auto) 8.3 x10^3uL (1.8-7.7) Lymphocytes # (Auto) 2.1 x10^3/uL (1.0-4.8) Monocytes # (Auto) 1.2 x10^3/uL (0.0-1.1) Eosinophils # (Auto) 0.0 x10^3/uL (0.0-0.7) Basophils # (Auto) 0.1 x10^3/uL (0.0-0.2) Sodium Level 138 mmol/L (136-145) Potassium Level 3.5 mmol/L (3.5-5.1) Chloride Level 101 mmol/L (98-107) Carbon Dioxide Level 24 mmol/L (21-32) Anion Gap 13 (6-14) Blood Urea Nitrogen 18 mg/dL (8-26) Creatinine 0.7 mg/dL (0.7-1.3) Estimated GFR (Cockcroft-Gault) 111.8 Glucose Level 141 mg/dL (70-99) Calcium Level 9.5 mg/dL (8.5-10.1) Test 09/17/18 11:54 09/17/18 18:16 09/18/18 00:09 09/18/18 04:53 Glucose (Fingerstick) 176 mg/dL (70-99) 136 mg/dL (70-99) 106 mg/dL (70-99) Sodium Level 138 mmol/L (136-145) Potassium Level 3.5 mmol/L (3.5-5.1) Chloride Level 104 mmol/L (98-107) Carbon Dioxide Level 26 mmol/L (21-32) Anion Gap 8 (6-14) Blood Urea Nitrogen 14 mg/dL (8-26) Creatinine 0.8 mg/dL (0.7-1.3) Estimated GFR (Cockcroft-Gault) 95.8 Glucose Level 120 mg/dL (70-99) Calcium Level 8.9 mg/dL (8.5-10.1) Test 09/18/18 04:55 09/18/18 05:51 White Blood Count 11.4 x10^3/uL (4.0-11.0) Red Blood Count 4.66 x10^6/uL (4.30-5.70) Hemoglobin 12.9 g/dL (13.0-17.5) Hematocrit 39.0 % (39.0-53.0) Mean Corpuscular Volume 84 fL (79-100) Mean Corpuscular Hemoglobin 28 pg (25-35) Mean Corpuscular Hemoglobin Concent 33 g/dL (31-37) Red Cell Distribution Width 14.2 % (11.5-14.5) Platelet Count 296 x10^3/uL (140-400) Neutrophils (%) (Auto) 69 % (31-73) Lymphocytes (%) (Auto) 20 % (24-48) Monocytes (%) (Auto) 9 % (0-9) Eosinophils (%) (Auto) 1 % (0-3) Basophils (%) (Auto) 1 % (0-3) Neutrophils # (Auto) 7.9 x10^3uL (1.8-7.7) Lymphocytes # (Auto) 2.3 x10^3/uL (1.0-4.8) Monocytes # (Auto) 1.0 x10^3/uL (0.0-1.1) Eosinophils # (Auto) 0.1 x10^3/uL (0.0-0.7) Basophils # (Auto) 0.1 x10^3/uL (0.0-0.2) Glucose (Fingerstick) 112 mg/dL (70-99) Laboratory Tests Test 09/17/18 18:16 09/18/18 00:09 09/18/18 04:53 09/18/18 04:55 Glucose (Fingerstick) 136 mg/dL (70-99) 106 mg/dL (70-99) Sodium Level 138 mmol/L (136-145) Potassium Level 3.5 mmol/L (3.5-5.1) Chloride Level 104 mmol/L (98-107) Carbon Dioxide Level 26 mmol/L (21-32) Anion Gap 8 (6-14) Blood Urea Nitrogen 14 mg/dL (8-26) Creatinine 0.8 mg/dL (0.7-1.3) Estimated GFR (Cockcroft-Gault) 95.8 Glucose Level 120 mg/dL (70-99) Calcium Level 8.9 mg/dL (8.5-10.1) White Blood Count 11.4 x10^3/uL (4.0-11.0) Red Blood Count 4.66 x10^6/uL (4.30-5.70) Hemoglobin 12.9 g/dL (13.0-17.5) Hematocrit 39.0 % (39.0-53.0) Mean Corpuscular Volume 84 fL (79-100) Mean Corpuscular Hemoglobin 28 pg (25-35) Mean Corpuscular Hemoglobin Concent 33 g/dL (31-37) Red Cell Distribution Width 14.2 % (11.5-14.5) Platelet Count 296 x10^3/uL (140-400) Neutrophils (%) (Auto) 69 % (31-73) Lymphocytes (%) (Auto) 20 % (24-48) Monocytes (%) (Auto) 9 % (0-9) Eosinophils (%) (Auto) 1 % (0-3) Basophils (%) (Auto) 1 % (0-3) Neutrophils # (Auto) 7.9 x10^3uL (1.8-7.7) Lymphocytes # (Auto) 2.3 x10^3/uL (1.0-4.8) Monocytes # (Auto) 1.0 x10^3/uL (0.0-1.1) Eosinophils # (Auto) 0.1 x10^3/uL (0.0-0.7) Basophils # (Auto) 0.1 x10^3/uL (0.0-0.2) Test 09/18/18 05:51 Glucose (Fingerstick) 112 mg/dL (70-99) Microbiology 09/09/18 Blood Culture - Final, Complete NO GROWTH AFTER 5 DAYS Medications Current Medications Thiamine Mononitrate (Vitamin B-1) 100 mg 1X STAT PO Last administered on at 14:50; Start 09/09/18 at 14:38; Stop 09/09/18 at 14:41; Status DC Folic Acid (Folic Acid) 1 mg 1X STAT PO Last administered on 09/09/18at 14:50 ; Start 09/09/18 at 14:38; Stop 09/09/18 at 14:41; Status DC Sodium Chloride 1,000 ml @ 1,000 mls/hr 1X ONCE IV Last administered on 09/09at 14:50; Start 09/09/18 at 15:00; Stop 09/09/18 at 15:59; Status DC Labetalol HCl (Normodyne Iv Push) 20 mg 1X ONCE IVP Last administered on 09/09at 16:53; Start 09/09/18 at 17:00; Stop 09/09/18 at 17:01; Status DC Chlordiazepoxide (Librium) 25 mg PRN Q6HRS PRN PO ANXIETY / AGITATION Last administered on 09/09/18at 22:35; Start 09/09/18 at 17:00; Stop 09/10/18 at 10 :35; Status DC Acetaminophen (Tylenol) 500 mg PRN Q6HRS PRN PO MILD PAIN / TEMP; Start at 17:00 Morphine Sulfate (Morphine Sulfate) 2 mg PRN Q2HR PRN IV MODERATE TO SEVERE PAIN Last administered on 09/12/18at 11:14; Start 09/09/18 at 17:00; Stop at 11:45; Status DC Sodium Chloride 1,000 ml @ 100 mls/hr Q10H IV Last administered on 09/09/18at 19:30; Start 09/09/18 at 18:00; Stop 09/10/18 at 10:35; Status DC Multivitamins (Thera M Plus) 1 tab DAILY PO ; Start 09/10/18 at 09:00; Stop at 13:13; Status DC Thiamine Mononitrate (Vitamin B-1) 100 mg DAILY PO ; Start 09/10/18 at 09:00; Stop 09/11/18 at 13:13; Status DC Folic Acid (Folic Acid) 1 mg DAILY PO ; Start 09/10/18 at 09:00; Stop at 13:13; Status DC Labetalol HCl (Normodyne Iv Push) 20 mg PRN Q2HR PRN IVP HYPERTENSION, 2ND CHOICE Last administered on 09/17/18at 14:47; Start 09/09/18 at 17:00 Nicotine (Nicoderm Cq 21mg) 1 patch PRN DAILY PRN TD SMOKING CESSATION; Start 09/09/18 at 17:15; Stop 09/11/18 at 13:13; Status DC Oxycodone/ Acetaminophen (Percocet 5/325) 1 tab PRN Q4HRS PRN PO SEVERE PAIN; Start 09/09/18 at 17:15; Stop 09/15/18 at 12:06; Status DC Diphenhydramine HCl (Benadryl) 25 mg PRN QHS PRN PO INSOMNIA; Start 09/09/18 at 17:15 Aspirin (Children'S Aspirin) 81 mg DAILYWBKFT PO ; Start 09/10/18 at 08:00; Stop 09/12/18 at 09:56; Status DC Atorvastatin Calcium (Lipitor) 40 mg QHS PO Last administered on 09/09/18at 21: 11; Start 09/09/18 at 21:00; Stop 09/12/18 at 09:56; Status DC Atorvastatin Calcium (Lipitor) 40 mg QHS PO ; Start 09/09/18 at 21:00; Status UNV Duloxetine HCl (Cymbalta) 30 mg BID PO Last administered on 09/09/18at 21:12; Start 09/09/18 at 21:00; Stop 09/11/18 at 13:13; Status DC Ferrous Sulfate (Feosol) 325 mg DAILYAC PO ; Start 09/10/18 at 07:30; Stop at 13:13; Status DC Finasteride (Proscar) 5 mg DAILY PO ; Start 09/10/18 at 09:00; Stop 09/12/18 at 09:56; Status DC Lorazepam (Ativan) 0.5 mg PRN DAILY PRN PO ANXIETY / AGITATION; Start at 17:15; Stop 09/10/18 at 10:35; Status DC Metoprolol Tartrate (Lopressor) 25 mg BID PO Last administered on 09/09/18at 21 :12; Start 09/09/18 at 21:00; Stop 09/11/18 at 13:19; Status DC Pantoprazole Sodium (Protonix) 40 mg DAILYAC PO ; Start 09/10/18 at 07:30; Stop 09/11/18 at 12:20; Status DC Tamsulosin HCl (Flomax) 0.4 mg DAILY PO ; Start 09/10/18 at 09:00; Stop at 09:56; Status DC Tramadol HCl (Ultram) 50 mg PRN Q6HRS PRN PO MODERATE PAIN; Start 09/09/18 at 17:15; Stop 09/15/18 at 12:06; Status DC Budesonide (Pulmicort) 0.5 mg RTBID NEB Last administered on 09/12/18at 07:47; Start 09/09/18 at 20:00; Stop 09/12/18 at 11:45; Status DC Diltiazem HCl (Cardizem 24hr Cd) 120 mg DAILY PO ; Start 09/10/18 at 09:00; Stop 09/11/18 at 13:13; Status DC Insulin Glargine (Lantus) 10 units QHS SQ Last administered on 09/09/18at 21:49 ; Start 09/09/18 at 21:00; Stop 09/10/18 at 10:35; Status DC Levothyroxine Sodium (Synthroid) 50 mcg DAILY06 PO ; Start 09/10/18 at 06:00; Stop 09/12/18 at 09:56; Status DC Lidocaine (Lidoderm) 1 patch DAILY TD Last administered on 09/18/18at 08:28; Start 09/10/18 at 09:00 Lisinopril (Prinivil) 2.5 mg DAILY PO ; Start 09/10/18 at 09:00; Stop at 13:13; Status DC Non-Formulary Medication (Tiotropium [place] (Spiriva)) 2 inh DAILY IH ; Start 09/10/18 at 09:00; Status UNV Warfarin Sodium (Coumadin) 7.5 mg DAILY16 PO ; Start 09/09/18 at 18:00; Stop 09/10/18 at 16:34; Status DC Insulin Human Lispro (HumaLOG) 0-9 UNITS TIDWMEALS SQ ; Start 09/10/18 at 08:00 ; Stop 09/11/18 at 13:13; Status DC Dextrose (Dextrose 50%-Water Syringe) 12.5 gm PRN Q15MIN PRN IV SEE COMMENTS; Start 09/09/18 at 17:15; Stop 09/12/18 at 08:17; Status DC Miscellaneous (Lidoderm Patch Removal) 1 ea QHS MC Last administered on at 21:12; Start 09/09/18 at 21:00 Albuterol/ Ipratropium (Duoneb) 3 ml RTQID NEB Last administered on 09/18/18at 09:17; Start 09/09/18 at 20:00 Warfarin Sodium (Coumadin Per Physician) 1 each PRN DAILY PRN MC SEE COMMENTS Last administered on 09/11/18at 11:21; Start 09/09/18 at 17:30; Stop 09/11/18 at 13:13; Status DC Sodium Chloride 1,000 ml @ 75 mls/hr [id number] IV ; Start 09/09/18 at 17:30; Stop 09/10/18 at 10:35; Status DC Lorazepam (Ativan) 2 mg 1X ONCE IV Last administered on 09/09/18at 17:30; Start 09/09/18 at 17:30; Stop 09/09/18 at 17:31; Status DC Clonidine HCl (Catapres) 0.1 mg PRN Q1HR PRN PO SBP > 180 or DBP > 100, MRX3; Start 09/09/18 at 17:30 Lorazepam (Ativan) 2 mg PRN Q15MIN PRN IV CIWA 8-14 Last administered on at 20:38; Start 09/09/18 at 17:30; Stop 09/15/18 at 12:06; Status DC Albuterol/ Ipratropium (Duoneb) 3 ml 1X ONCE NEB ; Start 09/09/18 at 17:30; Stop 09/09/18 at 17:31; Status DC Levofloxacin/ Dextrose 150 ml @ 100 mls/hr 1X ONCE IV Last administered on at 21:03; Start 09/09/18 at 17:30; Stop 09/09/18 at 18:59; Status DC Albuterol/ Ipratropium (Duoneb) 3 ml RTQID NEB ; Start 09/09/18 at 20:00; Status UNV Guaifenesin (Robitussin Dm) 10 ml PRN Q6HRS PRN PO COUGH; Start 09/09/18 at 19 :00 Levofloxacin/ Dextrose (Levaquin Per Pharmacy) 1 each PRN DAILY PRN MC SEE COMMENTS; Start 09/09/18 at 19:00; Stop 09/11/18 at 09:24; Status DC Heparin Sodium (Porcine) (Heparin Sodium) 5,000 unit Q8HRS SQ Last administered on 09/11/18at 05:48; Start 09/09/18 at 22:00; Stop 09/12/18 at 11 :01; Status DC Levofloxacin/ Dextrose 50 ml @ 50 mls/hr Q24H IV ; Start 09/10/18 at 20:00; Stop 09/10/18 at 20:00; Status DC Haloperidol Lactate (Haldol Inj) 5 mg PRN Q6HRS PRN IVP AGITATION Last administered on 09/15/18at 23:00; Start 09/10/18 at 01:15 Famotidine (Pepcid Vial) 20 mg QHS IVP Last administered on 09/12/18at 20:47; Start 09/10/18 at 21:00; Stop 09/13/18 at 08:50; Status DC Methylprednisolone Sodium Succinate (SOLU-Medrol 40MG VIAL) 40 mg Q12HR IV Last administered on 09/14/18at 08:24; Start 09/10/18 at 09:00; Stop 09/14/18 at 12:49; Status DC Chlordiazepoxide (Librium) 50 mg PRN Q6HRS PRN PO ANXIETY/AGITATION, 2ND CHOICE ; Start 09/10/18 at 10:45; Stop 09/17/18 at 14:33; Status DC Lorazepam (Ativan) 1 mg PRN DAILY PRN PO ANXIETY / AGITATION, 1ST CHOIC; Start 09/10/18 at 10:45; Stop 09/15/18 at 12:06; Status DC Dexmedetomidine HCl 200 mcg/ Sodium Chloride 50 ml @ 0 mls/hr CONT PRN IV PER PROTOCOL Last administered on 09/15/18at 09:03; Start 09/10/18 at 13:30; Stop 09/15/18 at 12:06; Status DC Sodium Chloride 500 ml @ 500 mls/hr 1X PRN PRN IV SEE COMMENTS; Start at 13:30 Atropine Sulfate (ATROPINE 0.5mg SYRINGE) 0.5 mg PRN Q5MIN PRN IV SEE COMMENTS ; Start 09/10/18 at 13:30; Stop 09/12/18 at 13:15; Status DC Levofloxacin/ Dextrose 100 ml @ 100 mls/hr Q24H IV Last administered on at 20:48; Start 09/10/18 at 20:00; Stop 09/11/18 at 09:36; Status DC Enalaprilat (Vasotec Inj) 1.25 mg PRN Q4HRS PRN IVP HYPERTENSION, 1ST CHOICE Last administered on 09/16/18at 20:51; Start 09/11/18 at 02:45 Vancomycin HCl (Vanco Per Pharmacy) 1 each PRN DAILY PRN MC SEE COMMENTS Last administered on 09/14/18at 12:16; Start 09/11/18 at 09:15; Stop 09/15/18 at 10 :49; Status DC Vancomycin HCl 2 gm/Sodium Chloride 500 ml @ 250 mls/hr 1X ONCE IV Last administered on 09/11/18at 10:40; Start 09/11/18 at 09:30; Stop 09/11/18 at 11 :29; Status DC Doxycycline Hyclate (Vibra-Tab) 100 mg BID PO ; Start 09/11/18 at 10:00; Stop 09/11/18 at 15:16; Status DC Cefepime HCl (Maxipime) 1 gm Q8H IVP Last administered on 09/18/18at 10:26; Start 09/11/18 at 10:00 Vancomycin HCl 1.75 gm/Sodium Chloride 500 ml @ 250 mls/hr Q12H IV Last administered on 09/12/18at 22:58; Start 09/11/18 at 23:00; Stop 09/12/18 at 23 :59; Status DC Vancomycin HCl (Vancomycin Trough Level) 1 each 1X ONCE MC Last administered on 09/12/18at 22:26; Start 09/12/18 at 22:30; Stop 09/12/18 at 22:31; Status DC Pantoprazole Sodium (PROTONIX VIAL for IV PUSH) 40 mg DAILYAC IVP Last administered on 09/18/18at 08:27; Start 09/11/18 at 12:30 Multivitamins 10 ml/Thiamine HCl 100 mg/Folic Acid 1 mg/Sodium Chloride 1,011.2 ml @ 0 mls/hr DAILY IV Last administered on 09/18/18at 08:55; Start 09/11/18 at 14:00 Insulin Human Lispro (HumaLOG) 0-7 UNITS TIDWMEALS SQ ; Start 09/11/18 at 17:00 ; Stop 09/11/18 at 17:00; Status DC Dextrose (Dextrose 50%-Water Syringe) 12.5 gm PRN Q15MIN PRN IV SEE COMMENTS; Start 09/11/18 at 13:00 Insulin Human Lispro (HumaLOG) 0-7 UNITS Q6HRS SQ Last administered on at 05:41; Start 09/11/18 at 18:00 Levothyroxine Sodium 0.025 mcg/ Sodium Chloride 5 ml @ 0 mls/hr DAILY IVP ; Start 09/11/18 at 13:30; Stop 09/11/18 at 13:52; Status DC Magnesium Sulfate 50 ml @ 25 mls/hr 1X ONCE IV Last administered on at 15:40; Start 09/11/18 at 13:30; Stop 09/11/18 at 15:29; Status DC Levothyroxine Sodium 25 mcg/ Sodium Chloride 5 ml @ 0 mls/hr DAILY IVP Last administered on 09/18/18at 09:04; Start 09/11/18 at 13:52 Levothyroxine Sodium 25 mcg/ Sodium Chloride 5 ml @ 0 mls/hr 1X ONCE IVP Last administered on 09/11/18at 14:45; Start 09/11/18 at 14:45; Stop 09/11/18 at 14 :46; Status DC Doxycycline Hyclate 100 mg/ Dextrose 100 ml @ 50 mls/hr Q12HR IV Last administered on 09/18/18at 08:55; Start 09/11/18 at 16:00 Magnesium Sulfate 50 ml @ 25 mls/hr 1X ONCE IV Last administered on at 12:56; Start 09/12/18 at 11:30; Stop 09/12/18 at 13:29; Status DC Amino Acids/ Glycerin/ Electrolytes 1,000 ml @ 50 mls/hr Q20H IV Last administered on 09/18/18at 11:48; Start 09/12/18 at 11:30 Haloperidol Lactate (Haldol Inj) 10 mg Q8HRS IVP Last administered on at 06:02; Start 09/12/18 at 14:00; Stop 09/16/18 at 13:14; Status DC Dexmedetomidine HCl 200 mcg/ Sodium Chloride 50 ml @ 0 mls/hr CONT PRN IV PER PROTOCOL; Start 09/12/18 at 13:15; Stop 09/12/18 at 14:04; Status DC Sodium Chloride 500 ml @ 500 mls/hr 1X PRN PRN IV SEE COMMENTS; Start at 13:15 Atropine Sulfate (ATROPINE 0.5mg SYRINGE) 0.5 mg PRN Q5MIN PRN IV SEE COMMENTS ; Start 09/12/18 at 13:15 Morphine Sulfate (Morphine Sulfate) 2 mg PRN Q2HR PRN IV PAIN Last administered on 09/14/18at 05:10; Start 09/12/18 at 13:15; Stop 09/14/18 at 12 :57; Status DC Metoprolol Tartrate (Lopressor) 25 mg BID PO ; Start 09/12/18 at 17:00; Stop 09/12/18 at 17:00; Status DC Metoprolol Tartrate (Lopressor Vial) 5 mg Q6HRS IVP Last administered on at 11:50; Start 09/12/18 at 18:00 Vancomycin HCl 2 gm/Sodium Chloride 500 ml @ 250 mls/hr Q12H IV Last administered on 09/14/18at 23:26; Start 09/13/18 at 11:00; Stop 09/15/18 at 10 :49; Status DC Vancomycin HCl (Vancomycin Trough Level) 1 each 1X ONCE MC Last administered on 09/14/18at 10:30; Start 09/14/18 at 10:30; Stop 09/14/18 at 10:31; Status DC Nitroglycerin (Nitro-Bid Oint) 1 inch Q6HRS TP Last administered on 09/18/18at 11:50; Start 09/14/18 at 08:30 Aspirin (Aspirin) 300 mg DAILY ME Last administered on 09/18/18at 08:26; Start 09/14/18 at 11:00 Methylprednisolone Sodium Succinate (SOLU-Medrol 40MG VIAL) 40 mg DAILY IV Last administered on 09/18/18at 08:27; Start 09/15/18 at 09:00 Morphine Sulfate (Morphine Sulfate) 2 mg PRN Q2HR PRN IV PAIN Last administered on 09/17/18at 02:01; Start 09/14/18 at 13:00 Lorazepam (Ativan) 2 mg PRN Q4HRS PRN IV ANXIETY / AGITATION Last administered on 09/15/18at 23:00; Start 09/15/18 at 22:45; Stop 09/16/18 at 13:14; Status DC Haloperidol Lactate (Haldol Inj) 5 mg Q8HRS IVP Last administered on at 06:11; Start 09/16/18 at 14:00; Stop 09/17/18 at 09:42; Status DC Chlordiazepoxide (Librium) 50 mg Q6H PO Last administered on 09/18/18at 08:26; Start 09/17/18 at 15:00 Chlordiazepoxide (Librium) 50 mg PRN Q1HR PRN PO For CIWA 8-14; Start at 14:30 Chlordiazepoxide (Librium) 100 mg PRN Q1HR PRN PO For CIWA 15 or greater; Start 09/17/18 at 14:30 Haloperidol Lactate (Haldol Inj) 5 mg PRN Q4HRS PRN IVP Hallucinatns,Confusn, Delirium; Start 09/17/18 at 14:30 Nitroglycerin/ Dextrose 250 ml @ 1.5 mls/hr CONT PRN IV SEE I/O RECORD; Start 09/17/18 at 15:30 Lorazepam (Ativan) 1 mg PRN Q4HRS PRN IV ANXIETY / AGITATION; Start 09/17/18 at 15:45 Lorazepam (Ativan) 2 mg PRN Q4HRS PRN IV ANXIETY / AGITATION Last administered on 09/18/18at 01:00; Start 09/17/18 at 16:00 Active Scripts Active Pantoprazole Sodium 40 Mg Tablet.dr 40 Mg PO DAILYAC Lidoderm (Lidocaine) 700 Mg Adh..patch 1 Patch TD DAILY 12hours on, 12 hours off Lisinopril 2.5 Mg Tablet 2.5 Mg PO DAILY Feosol (Ferrous Sulfate) 325 Mg Tablet 325 Mg PO DAILYAC Children's Aspirin (Aspirin) 81 Mg Tab.chew 81 Mg PO DAILYWBKFT Reported Ventolin Hfa Inhaler (Albuterol Sulfate) 18 Gm Hfa.aer.ad 2 Puff INH Q4HRS Mirtazapine 45 Mg Tablet 1 Tab PO QHS Glipizide 5 Mg Tablet 1 Tab PO BID Metformin Hcl 1,000 Mg Tablet 1,000 Mg PO BIDWMEALS Lantus (Insulin Glargine,Hum.rec.anlog) 100 Unit/1 Ml Vial 50 Unit SQ HS NITROGLYCERIN SubLingual (Nitroglycerin) 0.4 Mg Tab.subl 0.4 Mg SL PRN Q5MIN PRN Fluoxetine Hcl 20 Mg Capsule 3 Cap PO DAILY Novolin R (Insulin Regular, Human) 100 Unit/1 Ml Vial 100 Unit IJ QIDACHS Vitamin D3 (Cholecalciferol (Vitamin D3)) 1,000 Unit Tablet 1 Tab PO TID Vitamin B-12 (Cyanocobalamin (Vitamin B-12)) 1,000 Mcg Tablet 1 Tab PO DAILY Gemfibrozil 600 Mg Tablet 0.5 Tab PO BID Pepcid (Famotidine) 20 Mg Tablet 10 Mg PO BID Cardizem Cd (Diltiazem Hcl) 240 Mg Cap.er.24h 1 Cap PO DAILY Robaxin (Methocarbamol) 500 Mg Tablet 1 Tab PO BID PRN Niaspan (Niacin) 500 Mg Tab.er.24h 1 Tab PO QHS Gabapentin 600 Mg Tablet 300 Mg PO QID Symbicort 80-4.5 Mcg Inhaler (Budesonide/Formoterol Fumarate) 10.2 Gm Hfa.aer.ad 2 Puff IH BID Finasteride 5 Mg Tablet 1 Tab PO DAILY Levothyroxine Sodium 50 Mcg Tablet 1 Tab PO DAILY Tamsulosin Hcl 0.4 Mg Cap.er.24h 0.4 Mg PO BID Spiriva (Tiotropium [place]) 18 Mcg Cap.w.dev 2 Inh IH DAILY Hydrocodone-Apap 7.5-325 (Hydrocodone Bit/Acetaminophen) 1 Each Tablet 1 Tab PO Q4HRS PRN Metoprolol Tartrate 25 Mg Tablet 1 Tab PO BID Vitals/I & O Vital Sign - Last 24 Hours 09/17/18 09/17/18 09/17/18 09/17/18 13:00 14:00 14:47 15:00 Pulse 80 82 84 82 Resp 26 24 25 B/P (MAP) 173/107 (129) 177/96 (123) 202/91 173/73 (106) Pulse Ox 99 98 99 O2 Delivery Room Air Room Air Room Air 12/09/17/18 09/17/18 09/17/18 15:52 16:00 16:00 17:00 Temp 98.4 98.4 Pulse 78 82 Resp 24 26 B/P (MAP) 116/62 (80) 176/89 (118) Pulse Ox 99 98 99 O2 Delivery Room Air Room Air Room Air Room Air 09/17/18 09/17/18 09/17/18 09/17/18 18:00 18:02 18:03 19:00 Pulse 76 86 78 74 Resp 24 B/P (MAP) 157/74 (101) 180/91 180/91 163/105 (124) Pulse Ox 98 98 O2 Delivery Room Air Room Air 09/17/18 09/17/18 09/17/18 09/17/18 19:30 19:42 20:00 20:00 Temp 98.7 98.7 Pulse 74 76 Resp 24 B/P (MAP) 158/89 (112) 157/86 (109) Pulse Ox 98 99 97 O2 Delivery Room Air Room Air Room Air Room Air 09/17/18 09/17/18 09/17/18 09/17/18 21:00 22:00 22:00 23:00 Pulse 86 80 81 86 Resp 26 22 24 20 B/P (MAP) 137/82 (100) 139/73 (95) 169/80 (109) 138/68 (91) Pulse Ox 98 97 98 97 O2 Delivery Room Air Room Air Room Air Room Air 09/17/18 09/17/18 09/18/18 09/18/18 23:59 23:59 00:04 00:05 Temp 98.6 98.6 Pulse 87 87 87 Resp B/P (MAP) 112/62 (79) 112/62 112/62 Pulse Ox 96 O2 Delivery Room Air Room Air 09/18/18 09/18/18 09/18/18 09/18/18 01:00 02:00 03:00 04:00 Pulse 82 79 84 Resp 28 20 22 B/P (MAP) 139/80 (99) 114/66 (82) 133/78 (96) Pulse Ox 95 97 98 O2 Delivery Room Air Room Air Room Air Room Air 09/18/18 09/18/18 09/18/18 09/18/18 04:00 05:00 06:00 06:06 Temp 97.7 97.7 Pulse 79 75 84 84 Resp 22 26 22 B/P (MAP) 115/56 (75) 114/60 (78) 111/51 (71) 111/51 Pulse Ox 97 97 97 O2 Delivery Room Air Room Air Room Air 09/18/18 09/18/18 09/18/18 09/18/18 06:07 07:00 08:00 08:00 Temp 97.7 97.7 Pulse 84 79 76 Resp 24 25 B/P (MAP) 111/51 92/58 (69) 167/87 (113) Pulse Ox 98 97 O2 Delivery Room Air Room Air Room Air 09/18/18 09/18/18 09/18/18 09:18 11:50 11:50 Pulse 97 97 B/P (MAP) 141/86 141/86 Pulse Ox 98 O2 Delivery Room Air Intake and Output 09/17/18 09/17/18 09/18/18 15:01 23:01 07:01 Intake Total 100 ml 1640.64 ml 645 ml Output Total 790 ml 1195 ml 500 ml Balance -690 ml 445.64 ml 145 ml LESLEY PALM MD Sep 18, 2018 12:44
[2018-09-18] MEDS: PATCH REMOVAL. MC SCH (20:50)
[2018-09-19] MEDS: METOPROLOL TARTRATE 5 MG/5 ML VIAL. IVP SCH ×5 (01:26→23:15)
[2018-09-19] MEDS: NITROGLYCERIN OINT 1 GM PACKET. TP SCH ×5 (01:27→23:13)
[2018-09-19] MEDS: CEFEPIME HCL IV Push 1 GM VIAL. IVP SCH (01:35)
[2018-09-19] MEDS: chlordiazePOXIDE HCL 25 MG CAPSULE PO SCH ×4 (03:47→20:10)
[2018-09-19] MEDS: AMINO AC 3%/ELECTROLYTE/GLYCER 1,000 ML IV SCH ×2 (03:51→22:11)
[2018-09-19 03:59] VITALS: BP 151/96
[2018-09-19] MEDS: INSULIN LISPRO 300 UNITS/3 ML INSULN.PEN. SQ SCH ×5 (06:00→20:51)
[2018-09-19] MEDS: IPRATRPIUM/ALBUTEROL 0.5/2.5MG 3 ML NEBU. NEB SCH ×4 (07:27→20:00)
[2018-09-19] MEDS: MULTIVIT INFUSN,ADULT 4,VIT K 10 ML, THIAMINE INJ 100 MG, FOLIC ACID INJ 1 MG in IV NOR... IV SCH (07:50)
[2018-09-19] MEDS: PANTOPRAZOLE IV PUSH 40 MG VIAL. IVP SCH (07:50)
[2018-09-19] MEDS: methylPREDNISolone SOD SUCC PF 40 MG/ML VIAL. IV SCH (07:51)
[2018-09-19] MEDS: LIDOCAINE (700MG/PATCH) PATCH. TD SCH (07:52)
[2018-09-19] MEDS: ASPIRIN 300 MG SUPP.RECT PR SCH (07:52)
[2018-09-19] MEDS: DOXYCYCLINE HYCLATE 100 MG in IV DEXTROSE 5% 100ML 100 ML IV SCH (07:55)
[2018-09-19 07:56] VITALS: BP 119/72
--- NOTE | 2018-09-19 08:14 | PDOC ---
Infectious Disease Note Subjective Subjective awake, says is feeling better, off bipap ROS ROS no n/v/d/sob Vital Sign Vital Signs Vital Signs Date Time Temp Pulse Resp B/P (MAP) Pulse Ox O2 Delivery O2 Flow Rate FiO2 09/19/18 07:56 98.9 86 20 119/72 (88) 95 Room Air 98.9 09/19/18 07:28 2.0 Physical Exam PHYSICAL EXAM GENERAL: Resting quietly HEENT: Pupils are equal and reactive. Normal conjunctivae, Oral cavity pink, dry NECK: Supple LUNGS: Decreased in the bases. HEART: S1, S2 ABDOMEN: Obese, soft, no grimace or guarding to palpation : Mary EXTREMITIES: Trace edema. SKIN: Warm to touch without generalized signs of rash. NEUROLOGIC: Arouse to voice, confused recognizes his by name, Labs Lab Laboratory Tests Test 09/18/18 12:52 09/18/18 16:43 09/19/18 01:15 09/19/18 06:42 Glucose (Fingerstick) 189 mg/dL (70-99) 155 mg/dL (70-99) 112 mg/dL (70-99) 124 mg/dL (70-99) Test 09/19/18 07:14 Glucose (Fingerstick) 117 mg/dL (70-99) Micro BC coag neg staph Objective Assessment Fever- better - procalcitonin and Sed rate normal Bacteremia ? sepsis 2/ POA - GPC - ID pending - ECHO 09/12 very limited,, likely contaminant Encephalopathy - on Ativan - BP improving h/o ETOH and hydrocodone PCN allergy - has had amox H/o SVT Acute Resp failure - ? CAP vs AECOPD - on Bipap - on steroids HTN DO - hydrocodone Hematuria H/o Compression fractures h/o ETOH abuse Plan Plan of Care d/c Doxy and cefepime Off vanc Monitor labs Supportive care D/w MIRNA MADISON MD Sep 19, 2018 08:14
[2018-09-19] MEDS: LEVOTHYROXINE SODIUM IVP SCH (08:23)
[2018-09-19] MEDS: NORMAL SALINE IVP SCH (08:23)
--- NOTE | 2018-09-19 11:13 | PDOC ---
PROGRESS NOTES Chief Complaint Chief Complaint Alcohol withdrawal Rhabdomyolysis- acute kidney injury secondary to above Hypercapnic/hypoxic respiratory failure in a super morbidly obese on NIPPV SABRINA, need CPAP at night Possible pickwickian syndrome CAP/atelectasis on chest x-ray History of CAD, CABG COPD flare History of sepsis/UTI History of IBS, alternating bowel movements History of alcoholism AK I on CK D/ VMN Diabetes Acute on chronic back pain-took 15 [place] in before the hospital stay Accel hypertension History of Present Illness History of Present Illness Admitted with rhabdo and respiratory failure combined hypoxic/hypercapneic on BIPAP Patient t/o ICU 09/19/18 OFF bIPAP ETOHic Other notes reviewed, planned for EEG later this week by neuro Leilani on, on banana bag, ProcalAmine, and IV abx Plan: Continue supportive care Ativan when necessary and Haldol when necessary - I do not think he needed Precedex in the ICU but that is an idea if agitation continues. However The patient is planned for EEG later this week Follow neurology recommendations PT./OT when able FAll risk NPO for now, IV synthroid IV pPI etc Vitals Vitals Vital Signs Date Time Temp Pulse Resp B/P (MAP) Pulse Ox O2 Delivery O2 Flow Rate FiO2 09/19/18 08:00 Room Air 2.0 09/19/18 07:56 98.9 86 20 119/72 (88) 95 98.9 Physical Exam Physical Exam GENERAL: Resting quietly HEENT: Pupils are equal and reactive. Normal conjunctivae, Oral cavity pink, dry NECK: Supple LUNGS: Decreased in the bases. HEART: S1, S2 ABDOMEN: Obese, soft, no grimace or guarding to palpation : Mary EXTREMITIES: Trace edema. SKIN: Warm to touch without generalized signs of rash. NEUROLOGIC: Arouse to voice, confused recognizes his by name, General: Alert, mild distress, Other (confused) Heart: Regular rate, Normal S1, Normal S2, Other (distant heart tones. ) Lungs: Crackles Abdomen: Soft, Other (obese) Extremities: No edema, Normal pulses Skin: No significant lesion Labs LABS Laboratory Tests Test 09/18/18 12:52 09/18/18 16:43 09/19/18 01:15 09/19/18 06:42 Glucose (Fingerstick) 189 mg/dL (70-99) 155 mg/dL (70-99) 112 mg/dL (70-99) 124 mg/dL (70-99) Test 09/19/18 07:14 Glucose (Fingerstick) 117 mg/dL (70-99) Review of Systems Review of Systems confused hence limited ROS Assessment and Plan Assessmemt and Plan Problems Medical Problems: (1) Acute kidney injury Status: Acute (2) Alcohol withdrawal Status: Acute (3) Pneumonia Status: Acute (4) Rhabdomyolysis Status: Acute Comment Review of Relevant I have reviewed the following items barby (where applicable) has been applied. Labs Laboratory Tests Test 09/17/18 11:54 09/17/18 18:16 09/18/18 00:09 09/18/18 04:53 Glucose (Fingerstick) 176 mg/dL (70-99) 136 mg/dL (70-99) 106 mg/dL (70-99) Sodium Level 138 mmol/L (136-145) Potassium Level 3.5 mmol/L (3.5-5.1) Chloride Level 104 mmol/L (98-107) Carbon Dioxide Level 26 mmol/L (21-32) Anion Gap 8 (6-14) Blood Urea Nitrogen 14 mg/dL (8-26) Creatinine 0.8 mg/dL (0.7-1.3) Estimated GFR (Cockcroft-Gault) 95.8 Glucose Level 120 mg/dL (70-99) Calcium Level 8.9 mg/dL (8.5-10.1) Test 09/18/18 04:55 09/18/18 05:51 09/18/18 12:52 09/18/18 16:43 White Blood Count 11.4 x10^3/uL (4.0-11.0) Red Blood Count 4.66 x10^6/uL (4.30-5.70) Hemoglobin 12.9 g/dL (13.0-17.5) Hematocrit 39.0 % (39.0-53.0) Mean Corpuscular Volume 84 fL (79-100) Mean Corpuscular Hemoglobin 28 pg (25-35) Mean Corpuscular Hemoglobin Concent 33 g/dL (31-37) Red Cell Distribution Width 14.2 % (11.5-14.5) Platelet Count 296 x10^3/uL (140-400) Neutrophils (%) (Auto) 69 % (31-73) Lymphocytes (%) (Auto) 20 % (24-48) Monocytes (%) (Auto) 9 % (0-9) Eosinophils (%) (Auto) 1 % (0-3) Basophils (%) (Auto) 1 % (0-3) Neutrophils # (Auto) 7.9 x10^3uL (1.8-7.7) Lymphocytes # (Auto) 2.3 x10^3/uL (1.0-4.8) Monocytes # (Auto) 1.0 x10^3/uL (0.0-1.1) Eosinophils # (Auto) 0.1 x10^3/uL (0.0-0.7) Basophils # (Auto) 0.1 x10^3/uL (0.0-0.2) Glucose (Fingerstick) 112 mg/dL (70-99) 189 mg/dL (70-99) 155 mg/dL (70-99) Test 09/19/18 01:15 09/19/18 06:42 09/19/18 07:14 Glucose (Fingerstick) 112 mg/dL (70-99) 124 mg/dL (70-99) 117 mg/dL (70-99) Laboratory Tests Test 09/18/18 12:52 09/18/18 16:43 09/19/18 01:15 09/19/18 06:42 Glucose (Fingerstick) 189 mg/dL (70-99) 155 mg/dL (70-99) 112 mg/dL (70-99) 124 mg/dL (70-99) Test 09/19/18 07:14 Glucose (Fingerstick) 117 mg/dL (70-99) Microbiology 09/09/18 Blood Culture - Final, Complete NO GROWTH AFTER 5 DAYS Medications Current Medications Thiamine Mononitrate (Vitamin B-1) 100 mg 1X STAT PO Last administered on at 14:50; Start 09/09/18 at 14:38; Stop 09/09/18 at 14:41; Status DC Folic Acid (Folic Acid) 1 mg 1X STAT PO Last administered on 09/09/18at 14:50 ; Start 09/09/18 at 14:38; Stop 09/09/18 at 14:41; Status DC Sodium Chloride 1,000 ml @ 1,000 mls/hr 1X ONCE IV Last administered on 09/09at 14:50; Start 09/09/18 at 15:00; Stop 09/09/18 at 15:59; Status DC Labetalol HCl (Normodyne Iv Push) 20 mg 1X ONCE IVP Last administered on 09/09at 16:53; Start 09/09/18 at 17:00; Stop 09/09/18 at 17:01; Status DC Chlordiazepoxide (Librium) 25 mg PRN Q6HRS PRN PO ANXIETY / AGITATION Last administered on 09/09/18at 22:35; Start 09/09/18 at 17:00; Stop 09/10/18 at 10 :35; Status DC Acetaminophen (Tylenol) 500 mg PRN Q6HRS PRN PO MILD PAIN / TEMP; Start at 17:00 Morphine Sulfate (Morphine Sulfate) 2 mg PRN Q2HR PRN IV MODERATE TO SEVERE PAIN Last administered on 09/12/18at 11:14; Start 09/09/18 at 17:00; Stop at 11:45; Status DC Sodium Chloride 1,000 ml @ 100 mls/hr Q10H IV Last administered on 09/09/18at 19:30; Start 09/09/18 at 18:00; Stop 09/10/18 at 10:35; Status DC Multivitamins (Thera M Plus) 1 tab DAILY PO ; Start 09/10/18 at 09:00; Stop at 13:13; Status DC Thiamine Mononitrate (Vitamin B-1) 100 mg DAILY PO ; Start 09/10/18 at 09:00; Stop 09/11/18 at 13:13; Status DC Folic Acid (Folic Acid) 1 mg DAILY PO ; Start 09/10/18 at 09:00; Stop at 13:13; Status DC Labetalol HCl (Normodyne Iv Push) 20 mg PRN Q2HR PRN IVP HYPERTENSION, 2ND CHOICE Last administered on 09/17/18at 14:47; Start 09/09/18 at 17:00 Nicotine (Nicoderm Cq 21mg) 1 patch PRN DAILY PRN TD SMOKING CESSATION; Start 09/09/18 at 17:15; Stop 09/11/18 at 13:13; Status DC Oxycodone/ Acetaminophen (Percocet 5/325) 1 tab PRN Q4HRS PRN PO SEVERE PAIN; Start 09/09/18 at 17:15; Stop 09/15/18 at 12:06; Status DC Diphenhydramine HCl (Benadryl) 25 mg PRN QHS PRN PO INSOMNIA; Start 09/09/18 at 17:15 Aspirin (Children'S Aspirin) 81 mg DAILYWBKFT PO ; Start 09/10/18 at 08:00; Stop 09/12/18 at 09:56; Status DC Atorvastatin Calcium (Lipitor) 40 mg QHS PO Last administered on 09/09/18at 21: 11; Start 09/09/18 at 21:00; Stop 09/12/18 at 09:56; Status DC Atorvastatin Calcium (Lipitor) 40 mg QHS PO ; Start 09/09/18 at 21:00; Status UNV Duloxetine HCl (Cymbalta) 30 mg BID PO Last administered on 09/09/18at 21:12; Start 09/09/18 at 21:00; Stop 09/11/18 at 13:13; Status DC Ferrous Sulfate (Feosol) 325 mg DAILYAC PO ; Start 09/10/18 at 07:30; Stop at 13:13; Status DC Finasteride (Proscar) 5 mg DAILY PO ; Start 09/10/18 at 09:00; Stop 09/12/18 at 09:56; Status DC Lorazepam (Ativan) 0.5 mg PRN DAILY PRN PO ANXIETY / AGITATION; Start at 17:15; Stop 09/10/18 at 10:35; Status DC Metoprolol Tartrate (Lopressor) 25 mg BID PO Last administered on 09/09/18at 21 :12; Start 09/09/18 at 21:00; Stop 09/11/18 at 13:19; Status DC Pantoprazole Sodium (Protonix) 40 mg DAILYAC PO ; Start 09/10/18 at 07:30; Stop 09/11/18 at 12:20; Status DC Tamsulosin HCl (Flomax) 0.4 mg DAILY PO ; Start 09/10/18 at 09:00; Stop at 09:56; Status DC Tramadol HCl (Ultram) 50 mg PRN Q6HRS PRN PO MODERATE PAIN; Start 09/09/18 at 17:15; Stop 09/15/18 at 12:06; Status DC Budesonide (Pulmicort) 0.5 mg RTBID NEB Last administered on 09/12/18at 07:47; Start 09/09/18 at 20:00; Stop 09/12/18 at 11:45; Status DC Diltiazem HCl (Cardizem 24hr Cd) 120 mg DAILY PO ; Start 09/10/18 at 09:00; Stop 09/11/18 at 13:13; Status DC Insulin Glargine (Lantus) 10 units QHS SQ Last administered on 09/09/18at 21:49 ; Start 09/09/18 at 21:00; Stop 09/10/18 at 10:35; Status DC Levothyroxine Sodium (Synthroid) 50 mcg DAILY06 PO ; Start 09/10/18 at 06:00; Stop 09/12/18 at 09:56; Status DC Lidocaine (Lidoderm) 1 patch DAILY TD Last administered on 09/19/18at 07:52; Start 09/10/18 at 09:00 Lisinopril (Prinivil) 2.5 mg DAILY PO ; Start 09/10/18 at 09:00; Stop at 13:13; Status DC Non-Formulary Medication (Tiotropium [place] (Spiriva)) 2 inh DAILY IH ; Start 09/10/18 at 09:00; Status UNV Warfarin Sodium (Coumadin) 7.5 mg DAILY16 PO ; Start 09/09/18 at 18:00; Stop 09/10/18 at 16:34; Status DC Insulin Human Lispro (HumaLOG) 0-9 UNITS TIDWMEALS SQ ; Start 09/10/18 at 08:00 ; Stop 09/11/18 at 13:13; Status DC Dextrose (Dextrose 50%-Water Syringe) 12.5 gm PRN Q15MIN PRN IV SEE COMMENTS; Start 09/09/18 at 17:15; Stop 09/12/18 at 08:17; Status DC Miscellaneous (Lidoderm Patch Removal) 1 ea QHS MC Last administered on at 21:12; Start 09/09/18 at 21:00 Albuterol/ Ipratropium (Duoneb) 3 ml RTQID NEB Last administered on 09/19/18at 07:27; Start 09/09/18 at 20:00 Warfarin Sodium (Coumadin Per Physician) 1 each PRN DAILY PRN MC SEE COMMENTS Last administered on 09/11/18at 11:21; Start 09/09/18 at 17:30; Stop 09/11/18 at 13:13; Status DC Sodium Chloride 1,000 ml @ 75 mls/hr [id number] IV ; Start 09/09/18 at 17:30; Stop 09/10/18 at 10:35; Status DC Lorazepam (Ativan) 2 mg 1X ONCE IV Last administered on 09/09/18at 17:30; Start 09/09/18 at 17:30; Stop 09/09/18 at 17:31; Status DC Clonidine HCl (Catapres) 0.1 mg PRN Q1HR PRN PO SBP > 180 or DBP > 100, MRX3; Start 09/09/18 at 17:30 Lorazepam (Ativan) 2 mg PRN Q15MIN PRN IV CIWA 8-14 Last administered on at 20:38; Start 09/09/18 at 17:30; Stop 09/15/18 at 12:06; Status DC Albuterol/ Ipratropium (Duoneb) 3 ml 1X ONCE NEB ; Start 09/09/18 at 17:30; Stop 09/09/18 at 17:31; Status DC Levofloxacin/ Dextrose 150 ml @ 100 mls/hr 1X ONCE IV Last administered on at 21:03; Start 09/09/18 at 17:30; Stop 09/09/18 at 18:59; Status DC Albuterol/ Ipratropium (Duoneb) 3 ml RTQID NEB ; Start 09/09/18 at 20:00; Status UNV Guaifenesin (Robitussin Dm) 10 ml PRN Q6HRS PRN PO COUGH; Start 09/09/18 at 19 :00 Levofloxacin/ Dextrose (Levaquin Per Pharmacy) 1 each PRN DAILY PRN MC SEE COMMENTS; Start 09/09/18 at 19:00; Stop 09/11/18 at 09:24; Status DC Heparin Sodium (Porcine) (Heparin Sodium) 5,000 unit Q8HRS SQ Last administered on 09/11/18at 05:48; Start 09/09/18 at 22:00; Stop 09/12/18 at 11 :01; Status DC Levofloxacin/ Dextrose 50 ml @ 50 mls/hr Q24H IV ; Start 09/10/18 at 20:00; Stop 09/10/18 at 20:00; Status DC Haloperidol Lactate (Haldol Inj) 5 mg PRN Q6HRS PRN IVP AGITATION Last administered on 09/15/18at 23:00; Start 09/10/18 at 01:15 Famotidine (Pepcid Vial) 20 mg QHS IVP Last administered on 09/12/18at 20:47; Start 09/10/18 at 21:00; Stop 09/13/18 at 08:50; Status DC Methylprednisolone Sodium Succinate (SOLU-Medrol 40MG VIAL) 40 mg Q12HR IV Last administered on 09/14/18at 08:24; Start 09/10/18 at 09:00; Stop 09/14/18 at 12:49; Status DC Chlordiazepoxide (Librium) 50 mg PRN Q6HRS PRN PO ANXIETY/AGITATION, 2ND CHOICE ; Start 09/10/18 at 10:45; Stop 09/17/18 at 14:33; Status DC Lorazepam (Ativan) 1 mg PRN DAILY PRN PO ANXIETY / AGITATION, 1ST CHOIC; Start 09/10/18 at 10:45; Stop 09/15/18 at 12:06; Status DC Dexmedetomidine HCl 200 mcg/ Sodium Chloride 50 ml @ 0 mls/hr CONT PRN IV PER PROTOCOL Last administered on 09/15/18at 09:03; Start 09/10/18 at 13:30; Stop 09/15/18 at 12:06; Status DC Sodium Chloride 500 ml @ 500 mls/hr 1X PRN PRN IV SEE COMMENTS; Start at 13:30 Atropine Sulfate (ATROPINE 0.5mg SYRINGE) 0.5 mg PRN Q5MIN PRN IV SEE COMMENTS ; Start 09/10/18 at 13:30; Stop 09/12/18 at 13:15; Status DC Levofloxacin/ Dextrose 100 ml @ 100 mls/hr Q24H IV Last administered on at 20:48; Start 09/10/18 at 20:00; Stop 09/11/18 at 09:36; Status DC Enalaprilat (Vasotec Inj) 1.25 mg PRN Q4HRS PRN IVP HYPERTENSION, 1ST CHOICE Last administered on 09/16/18at 20:51; Start 09/11/18 at 02:45 Vancomycin HCl (Vanco Per Pharmacy) 1 each PRN DAILY PRN MC SEE COMMENTS Last administered on 09/14/18at 12:16; Start 09/11/18 at 09:15; Stop 09/15/18 at 10 :49; Status DC Vancomycin HCl 2 gm/Sodium Chloride 500 ml @ 250 mls/hr 1X ONCE IV Last administered on 09/11/18at 10:40; Start 09/11/18 at 09:30; Stop 09/11/18 at 11 :29; Status DC Doxycycline Hyclate (Vibra-Tab) 100 mg BID PO ; Start 09/11/18 at 10:00; Stop 09/11/18 at 15:16; Status DC Cefepime HCl (Maxipime) 1 gm Q8H IVP Last administered on 09/19/18at 01:35; Start 09/11/18 at 10:00; Stop 09/19/18 at 08:14; Status DC Vancomycin HCl 1.75 gm/Sodium Chloride 500 ml @ 250 mls/hr Q12H IV Last administered on 09/12/18at 22:58; Start 09/11/18 at 23:00; Stop 09/12/18 at 23 :59; Status DC Vancomycin HCl (Vancomycin Trough Level) 1 each 1X ONCE MC Last administered on 09/12/18at 22:26; Start 09/12/18 at 22:30; Stop 09/12/18 at 22:31; Status DC Pantoprazole Sodium (PROTONIX VIAL for IV PUSH) 40 mg DAILYAC IVP Last administered on 09/19/18at 07:50; Start 09/11/18 at 12:30 Multivitamins 10 ml/Thiamine HCl 100 mg/Folic Acid 1 mg/Sodium Chloride 1,011.2 ml @ 0 mls/hr DAILY IV Last administered on 09/19/18at 07:50; Start 09/11/18 at 14:00 Insulin Human Lispro (HumaLOG) 0-7 UNITS TIDWMEALS SQ ; Start 09/11/18 at 17:00 ; Stop 09/11/18 at 17:00; Status DC Dextrose (Dextrose 50%-Water Syringe) 12.5 gm PRN Q15MIN PRN IV SEE COMMENTS; Start 09/11/18 at 13:00 Insulin Human Lispro (HumaLOG) 0-7 UNITS Q6HRS SQ Last administered on at 05:41; Start 09/11/18 at 18:00 Levothyroxine Sodium 0.025 mcg/ Sodium Chloride 5 ml @ 0 mls/hr DAILY IVP ; Start 09/11/18 at 13:30; Stop 09/11/18 at 13:52; Status DC Magnesium Sulfate 50 ml @ 25 mls/hr 1X ONCE IV Last administered on at 15:40; Start 09/11/18 at 13:30; Stop 09/11/18 at 15:29; Status DC Levothyroxine Sodium 25 mcg/ Sodium Chloride 5 ml @ 0 mls/hr DAILY IVP Last administered on 09/19/18at 08:23; Start 09/11/18 at 13:52 Levothyroxine Sodium 25 mcg/ Sodium Chloride 5 ml @ 0 mls/hr 1X ONCE IVP Last administered on 09/11/18at 14:45; Start 09/11/18 at 14:45; Stop 09/11/18 at 14 :46; Status DC Doxycycline Hyclate 100 mg/ Dextrose 100 ml @ 50 mls/hr Q12HR IV Last administered on 09/19/18at 07:55; Start 09/11/18 at 16:00; Stop 09/19/18 at 08 :14; Status DC Magnesium Sulfate 50 ml @ 25 mls/hr 1X ONCE IV Last administered on at 12:56; Start 09/12/18 at 11:30; Stop 09/12/18 at 13:29; Status DC Amino Acids/ Glycerin/ Electrolytes 1,000 ml @ 50 mls/hr Q20H IV Last administered on 09/19/18at 03:51; Start 09/12/18 at 11:30 Haloperidol Lactate (Haldol Inj) 10 mg Q8HRS IVP Last administered on at 06:02; Start 09/12/18 at 14:00; Stop 09/16/18 at 13:14; Status DC Dexmedetomidine HCl 200 mcg/ Sodium Chloride 50 ml @ 0 mls/hr CONT PRN IV PER PROTOCOL; Start 09/12/18 at 13:15; Stop 09/12/18 at 14:04; Status DC Sodium Chloride 500 ml @ 500 mls/hr 1X PRN PRN IV SEE COMMENTS; Start at 13:15 Atropine Sulfate (ATROPINE 0.5mg SYRINGE) 0.5 mg PRN Q5MIN PRN IV SEE COMMENTS ; Start 09/12/18 at 13:15 Morphine Sulfate (Morphine Sulfate) 2 mg PRN Q2HR PRN IV PAIN Last administered on 09/14/18at 05:10; Start 09/12/18 at 13:15; Stop 09/14/18 at 12 :57; Status DC Metoprolol Tartrate (Lopressor) 25 mg BID PO ; Start 09/12/18 at 17:00; Stop 09/12/18 at 17:00; Status DC Metoprolol Tartrate (Lopressor Vial) 5 mg Q6HRS IVP Last administered on at 06:36; Start 09/12/18 at 18:00 Vancomycin HCl 2 gm/Sodium Chloride 500 ml @ 250 mls/hr Q12H IV Last administered on 09/14/18at 23:26; Start 09/13/18 at 11:00; Stop 09/15/18 at 10 :49; Status DC Vancomycin HCl (Vancomycin Trough Level) 1 each 1X ONCE MC Last administered on 09/14/18at 10:30; Start 09/14/18 at 10:30; Stop 09/14/18 at 10:31; Status DC Nitroglycerin (Nitro-Bid Oint) 1 inch Q6HRS TP Last administered on 09/19/18at 06:35; Start 09/14/18 at 08:30 Aspirin (Aspirin) 300 mg DAILY AR Last administered on 09/19/18at 07:52; Start 09/14/18 at 11:00 Methylprednisolone Sodium Succinate (SOLU-Medrol 40MG VIAL) 40 mg DAILY IV Last administered on 09/19/18at 07:51; Start 09/15/18 at 09:00 Morphine Sulfate (Morphine Sulfate) 2 mg PRN Q2HR PRN IV PAIN Last administered on 09/17/18at 02:01; Start 09/14/18 at 13:00 Lorazepam (Ativan) 2 mg PRN Q4HRS PRN IV ANXIETY / AGITATION Last administered on 09/15/18at 23:00; Start 09/15/18 at 22:45; Stop 09/16/18 at 13:14; Status DC Haloperidol Lactate (Haldol Inj) 5 mg Q8HRS IVP Last administered on at 06:11; Start 09/16/18 at 14:00; Stop 09/17/18 at 09:42; Status DC Chlordiazepoxide (Librium) 50 mg Q6H PO Last administered on 09/18/18at 08:26; Start 09/17/18 at 15:00; Stop 09/18/18 at 12:41; Status DC Chlordiazepoxide (Librium) 50 mg PRN Q1HR PRN PO For CIWA 8-14; Start at 14:30 Chlordiazepoxide (Librium) 100 mg PRN Q1HR PRN PO For CIWA 15 or greater; Start 09/17/18 at 14:30 Haloperidol Lactate (Haldol Inj) 5 mg PRN Q4HRS PRN IVP Hallucinatns,Confusn, Delirium; Start 09/17/18 at 14:30 Nitroglycerin/ Dextrose 250 ml @ 1.5 mls/hr CONT PRN IV SEE I/O RECORD; Start 09/17/18 at 15:30; Stop 09/19/18 at 10:52; Status DC Lorazepam (Ativan) 1 mg PRN Q4HRS PRN IV ANXIETY / AGITATION; Start 09/17/18 at 15:45 Lorazepam (Ativan) 2 mg PRN Q4HRS PRN IV ANXIETY / AGITATION Last administered on 09/18/18at 19:02; Start 09/17/18 at 16:00 Chlordiazepoxide (Librium) 25 mg Q6H PO Last administered on 09/19/18at 07:51; Start 09/18/18 at 15:00 Active Scripts Active Pantoprazole Sodium 40 Mg Tablet.dr 40 Mg PO DAILYAC Lidoderm (Lidocaine) 700 Mg Adh..patch 1 Patch TD DAILY 12hours on, 12 hours off Lisinopril 2.5 Mg Tablet 2.5 Mg PO DAILY Feosol (Ferrous Sulfate) 325 Mg Tablet 325 Mg PO DAILYAC Children's Aspirin (Aspirin) 81 Mg Tab.chew 81 Mg PO DAILYWBKFT Reported Ventolin Hfa Inhaler (Albuterol Sulfate) 18 Gm Hfa.aer.ad 2 Puff INH Q4HRS Mirtazapine 45 Mg Tablet 1 Tab PO QHS Glipizide 5 Mg Tablet 1 Tab PO BID Metformin Hcl 1,000 Mg Tablet 1,000 Mg PO BIDWMEALS Lantus (Insulin Glargine,Hum.rec.anlog) 100 Unit/1 Ml Vial 50 Unit SQ HS NITROGLYCERIN SubLingual (Nitroglycerin) 0.4 Mg Tab.subl 0.4 Mg SL PRN Q5MIN PRN Fluoxetine Hcl 20 Mg Capsule 3 Cap PO DAILY Novolin R (Insulin Regular, Human) 100 Unit/1 Ml Vial 100 Unit IJ QIDACHS Vitamin D3 (Cholecalciferol (Vitamin D3)) 1,000 Unit Tablet 1 Tab PO TID Vitamin B-12 (Cyanocobalamin (Vitamin B-12)) 1,000 Mcg Tablet 1 Tab PO DAILY Gemfibrozil 600 Mg Tablet 0.5 Tab PO BID Pepcid (Famotidine) 20 Mg Tablet 10 Mg PO BID Cardizem Cd (Diltiazem Hcl) 240 Mg Cap.er.24h 1 Cap PO DAILY Robaxin (Methocarbamol) 500 Mg Tablet 1 Tab PO BID PRN Niaspan (Niacin) 500 Mg Tab.er.24h 1 Tab PO QHS Gabapentin 600 Mg Tablet 300 Mg PO QID Symbicort 80-4.5 Mcg Inhaler (Budesonide/Formoterol Fumarate) 10.2 Gm Hfa.aer.ad 2 Puff IH BID Finasteride 5 Mg Tablet 1 Tab PO DAILY Levothyroxine Sodium 50 Mcg Tablet 1 Tab PO DAILY Tamsulosin Hcl 0.4 Mg Cap.er.24h 0.4 Mg PO BID Spiriva (Tiotropium [place]) 18 Mcg Cap.w.dev 2 Inh IH DAILY Hydrocodone-Apap 7.5-325 (Hydrocodone Bit/Acetaminophen) 1 Each Tablet 1 Tab PO Q4HRS PRN Metoprolol Tartrate 25 Mg Tablet 1 Tab PO BID Vitals/I & O Vital Sign - Last 24 Hours 09/18/18 09/18/18 09/18/18 09/18/18 11:50 11:50 12:00 13:20 Temp 98.0 98.0 Pulse 97 97 90 Resp 23 B/P (MAP) 141/86 141/86 145/85 (105) Pulse Ox 99 99 O2 Delivery Room Air Room Air 09/18/18 09/18/18 09/18/18 09/18/18 15:47 16:03 17:39 17:45 Temp 98.3 98.3 Pulse 86 86 86 Resp 20 B/P (MAP) 137/90 (106) 137/90 137/90 Pulse Ox 94 O2 Delivery Room Air Room Air 09/18/18 09/18/18 09/18/18 09/18/18 19:54 19:55 20:00 23:51 Temp 98.2 97.7 98.2 97.7 Pulse 93 94 Resp 24 24 B/P (MAP) 132/86 (101) 153/90 (111) Pulse Ox 94 91 O2 Delivery Room Air Room Air Room Air Room Air O2 Flow Rate 4.0 09/19/18 09/19/18 09/19/18 09/19/18 01:26 01:27 03:59 06:35 Temp 98.2 98.2 Pulse 94 94 88 94 Resp 20 B/P (MAP) 153/90 153/90 151/96 (114) 159/100 Pulse Ox 92 O2 Delivery Room Air 09/19/18 09/19/18 09/19/18 09/19/18 06:36 07:28 07:56 08:00 Temp 98.9 98.9 Pulse 94 86 Resp 20 B/P (MAP) 159/100 119/72 (88) Pulse Ox 95 95 O2 Delivery Nasal Cannula Room Air O2 Flow Rate 2.0 2.0 09/19/18 08:00 O2 Delivery Room Air O2 Flow Rate 2.0 Intake and Output 09/18/18 09/18/18 09/19/18 15:01 23:01 07:01 Intake Total 913.46 ml 0 ml Output Total 635 ml 1350 ml Balance 278.46 ml -1350 ml WILLEM CORRAL MD Sep 19, 2018 11:13
--- NOTE | 2018-09-19 11:18 | PDOC ---
PULMONARY PROGRESS NOTES Subjective off bipap and 02 PULLS ON TUBES AND WIRES Vitals Vital Signs Date Time Temp Pulse Resp B/P (MAP) Pulse Ox O2 Delivery O2 Flow Rate FiO2 09/19/18 08:00 Room Air 2.0 09/19/18 07:56 98.9 86 20 119/72 (88) 95 98.9 ROS: No Nausea, No Chest Pain, No Abdominal Pain, No Increase Cough General: Alert Lungs: Crackles Cardiovascular: S1, S2 Abdomen: Soft, Other (OBESE) Extremities: Other (EDEMA) Skin: Warm Labs Laboratory Tests Test 09/17/18 11:54 09/17/18 18:16 09/18/18 00:09 09/18/18 04:53 Glucose (Fingerstick) 176 mg/dL (70-99) 136 mg/dL (70-99) 106 mg/dL (70-99) Sodium Level 138 mmol/L (136-145) Potassium Level 3.5 mmol/L (3.5-5.1) Chloride Level 104 mmol/L (98-107) Carbon Dioxide Level 26 mmol/L (21-32) Anion Gap 8 (6-14) Blood Urea Nitrogen 14 mg/dL (8-26) Creatinine 0.8 mg/dL (0.7-1.3) Estimated GFR (Cockcroft-Gault) 95.8 Glucose Level 120 mg/dL (70-99) Calcium Level 8.9 mg/dL (8.5-10.1) Test 09/18/18 04:55 09/18/18 05:51 09/18/18 12:52 09/18/18 16:43 White Blood Count 11.4 x10^3/uL (4.0-11.0) Red Blood Count 4.66 x10^6/uL (4.30-5.70) Hemoglobin 12.9 g/dL (13.0-17.5) Hematocrit 39.0 % (39.0-53.0) Mean Corpuscular Volume 84 fL (79-100) Mean Corpuscular Hemoglobin 28 pg (25-35) Mean Corpuscular Hemoglobin Concent 33 g/dL (31-37) Red Cell Distribution Width 14.2 % (11.5-14.5) Platelet Count 296 x10^3/uL (140-400) Neutrophils (%) (Auto) 69 % (31-73) Lymphocytes (%) (Auto) 20 % (24-48) Monocytes (%) (Auto) 9 % (0-9) Eosinophils (%) (Auto) 1 % (0-3) Basophils (%) (Auto) 1 % (0-3) Neutrophils # (Auto) 7.9 x10^3uL (1.8-7.7) Lymphocytes # (Auto) 2.3 x10^3/uL (1.0-4.8) Monocytes # (Auto) 1.0 x10^3/uL (0.0-1.1) Eosinophils # (Auto) 0.1 x10^3/uL (0.0-0.7) Basophils # (Auto) 0.1 x10^3/uL (0.0-0.2) Glucose (Fingerstick) 112 mg/dL (70-99) 189 mg/dL (70-99) 155 mg/dL (70-99) Test 09/19/18 01:15 09/19/18 06:42 09/19/18 07:14 Glucose (Fingerstick) 112 mg/dL (70-99) 124 mg/dL (70-99) 117 mg/dL (70-99) Laboratory Tests Test 09/18/18 12:52 09/18/18 16:43 09/19/18 01:15 09/19/18 06:42 Glucose (Fingerstick) 189 mg/dL (70-99) 155 mg/dL (70-99) 112 mg/dL (70-99) 124 mg/dL (70-99) Test 09/19/18 07:14 Glucose (Fingerstick) 117 mg/dL (70-99) Medications Active Scripts Medications Dose Route/Sig Max Daily Dose Days Date Category Dose Instructions Ventolin Hfa Inhaler (Albuterol Sulfate) 18 Gm Hfa.aer.ad 2 Puff INH Q4HRS 09/11/18 Reported Mirtazapine 45 Mg Tablet 1 Tab PO QHS 09/11/18 Reported Glipizide 5 Mg Tablet 1 Tab PO BID 09/11/18 Reported Metformin Hcl 1,000 Mg Tablet 1,000 Mg PO BIDWMEALS 09/11/18 Reported Lantus (Insulin Glargine,Hum.rec.anlog) 100 Unit/1 Ml Vial 50 Unit SQ HS 09/11/18 Reported NITROGLYCERIN SubLingual (Nitroglycerin) 0.4 Mg Tab.subl 0.4 Mg SL PRN Q5MIN PRN 09/11/18 Reported Fluoxetine Hcl 20 Mg Capsule 3 Cap PO DAILY 09/11/18 Reported Novolin R (Insulin Regular, Human) 100 Unit/1 Ml Vial 100 Unit IJ QIDACHS 09/11/18 Reported Vitamin D3 (Cholecalciferol (Vitamin D3)) 1,000 Unit Tablet 1 Tab PO TID 09/11/18 Reported Vitamin B-12 (Cyanocobalamin (Vitamin B-12)) 1,000 Mcg Tablet 1 Tab PO DAILY 09/11/18 Reported Gemfibrozil 600 Mg Tablet 0.5 Tab PO BID 09/11/18 Reported Pepcid (Famotidine) 20 Mg Tablet 10 Mg PO BID 09/11/18 Reported Cardizem Cd (Diltiazem Hcl) 240 Mg Cap.er.24h 1 Cap PO DAILY 09/11/18 Reported Robaxin (Methocarbamol) 500 Mg Tablet 1 Tab PO BID PRN 09/11/18 Reported Niaspan (Niacin) 500 Mg Tab.er.24h 1 Tab PO QHS 09/11/18 Reported Gabapentin 600 Mg Tablet 300 Mg PO QID 09/11/18 Reported Pantoprazole Sodium 40 Mg Tablet.dr 40 Mg PO DAILYAC 07/16/16 Rx Lidoderm (Lidocaine) 700 Mg Adh..patch 1 Patch TD DAILY 07/16/16 Rx 12hours on, 12 hours off Lisinopril 2.5 Mg Tablet 2.5 Mg PO DAILY 07/16/16 Rx Feosol (Ferrous Sulfate) 325 Mg Tablet 325 Mg PO DAILYAC 07/16/16 Rx Children's Aspirin (Aspirin) 81 Mg Tab.chew 81 Mg PO DAILYWBKFT 07/16/16 Rx Symbicort 80-4.5 Mcg Inhaler (Budesonide/Formoterol Fumarate) 10.2 Gm Hfa.aer.ad 2 Puff IH BID 07/09/16 Reported Finasteride 5 Mg Tablet 1 Tab PO DAILY 07/09/16 Reported Levothyroxine Sodium 50 Mcg Tablet 1 Tab PO DAILY 07/09/16 Reported Tamsulosin Hcl 0.4 Mg Cap.er.24h 0.4 Mg PO BID 07/09/16 Reported Spiriva (Tiotropium [place]) 18 Mcg Cap.w.dev 2 Inh IH DAILY 07/09/16 Reported Hydrocodone-Apap 7.5-325 (Hydrocodone Bit/Acetaminophen) 1 Each Tablet 1 Tab PO Q4HRS PRN 07/09/16 Reported Metoprolol Tartrate 25 Mg Tablet 1 Tab PO BID 07/09/16 Reported Comments IMPRESSION: Mild patchy opacities in the right lung base may be secondary to subsegmental atelectasis or pneumonia. Findings of COPD. Impression . IMPRESSION: 1. Acute hypoxemic respiratory failure, multifactorial in etiolog 2. Abnormal chest x-ray/PNEUMONIA 3. Acute exacerbation of chronic obstructive pulmonary disease. 4. Acute bronchitis versus pneumonia. 5. METABOLIC/TOXIC Encephalopathy POA 6. Acute kidney injury. 7. Obstructive sleep apnea-hypopnea syndrome. 8. CAD S/P CABG 9. Hypertension. 10. BACTEREMIA/SEPSIS PER ID Impression: Right internal jugular catheter terminates at the expected level of the superior aspect of the superior vena cava. No pneumothorax. Pulmonary vasculature congestion. Plan . WILL CONTINUE PRN BIPAP BETTER TODAY PRN SEDATION FOR AGITATION LIBRIUM FOR ETOH WITHDRAW SPOKE WITH ARYLN FENTON MD Sep 19, 2018 11:18
[2018-09-19 12:00] VITALS: BP 173/94
[2018-09-19] MEDS: ENOXAPARIN 40 MG/0.4 ML SYRINGE. SQ SCH (12:59)
--- NOTE | 2018-09-19 15:18 | PDOC ---
PROGRESS NOTES Assessment Problems Medical Problems: (1) Acute kidney injury Status: Acute (2) Alcohol withdrawal Status: Acute (3) Pneumonia Status: Acute (4) Rhabdomyolysis Status: Acute Toxic encephalopathy due to narcotics. Hypertensive encephalopathy. Alcohol intoxication and component of Wernicke's monitored delirium tremens, hallucinations Brain MRI negative is concerned about tremors, most likely these are alcohol withdrawal and benzodiazepine withdrawal, but he is on haloperidol which could cause tremor Plan Chlordiazepoxide, scheduled dose, watch for sedation I don't think he needs EEG anymore, given improvement D/C haloperidol Discussed with Subjective denies pain Objective Vital Signs Date Time Temp Pulse Resp B/P (MAP) Pulse Ox O2 Delivery O2 Flow Rate FiO2 09/19/18 12:58 97 173/94 09/19/18 12:05 95 Room Air 09/19/18 12:00 99.0 20 99.0 09/19/18 08:00 2.0 Intake and Output 09/19/18 07:01 Intake Total 913.46 ml Output Total 1985 ml Balance -1071.54 ml Intake Oral 0 ml IV Total 913.46 ml Output Urine Total 1985 ml PHYSICAL EXAM Alert. Oriented to person only, follows commands. Not hallucinating PERRL. EOMI. CN: no focal findings. Muscle tone: normal. Muscle strength: 4/5 DTR: 1+ Plantar reflex: Flexor Gait: not examined in bed. Sensory exam: no abnormal findings. Cerebellar: No limb ataxia, no tremor Review of Relevant I have reviewed the following items barby (where applicable) has been applied. Labs Laboratory Tests Test 09/17/18 18:16 09/18/18 00:09 09/18/18 04:53 09/18/18 04:55 Glucose (Fingerstick) 136 mg/dL (70-99) 106 mg/dL (70-99) Sodium Level 138 mmol/L (136-145) Potassium Level 3.5 mmol/L (3.5-5.1) Chloride Level 104 mmol/L (98-107) Carbon Dioxide Level 26 mmol/L (21-32) Anion Gap 8 (6-14) Blood Urea Nitrogen 14 mg/dL (8-26) Creatinine 0.8 mg/dL (0.7-1.3) Estimated GFR (Cockcroft-Gault) 95.8 Glucose Level 120 mg/dL (70-99) Calcium Level 8.9 mg/dL (8.5-10.1) White Blood Count 11.4 x10^3/uL (4.0-11.0) Red Blood Count 4.66 x10^6/uL (4.30-5.70) Hemoglobin 12.9 g/dL (13.0-17.5) Hematocrit 39.0 % (39.0-53.0) Mean Corpuscular Volume 84 fL (79-100) Mean Corpuscular Hemoglobin 28 pg (25-35) Mean Corpuscular Hemoglobin Concent 33 g/dL (31-37) Red Cell Distribution Width 14.2 % (11.5-14.5) Platelet Count 296 x10^3/uL (140-400) Neutrophils (%) (Auto) 69 % (31-73) Lymphocytes (%) (Auto) 20 % (24-48) Monocytes (%) (Auto) 9 % (0-9) Eosinophils (%) (Auto) 1 % (0-3) Basophils (%) (Auto) 1 % (0-3) Neutrophils # (Auto) 7.9 x10^3uL (1.8-7.7) Lymphocytes # (Auto) 2.3 x10^3/uL (1.0-4.8) Monocytes # (Auto) 1.0 x10^3/uL (0.0-1.1) Eosinophils # (Auto) 0.1 x10^3/uL (0.0-0.7) Basophils # (Auto) 0.1 x10^3/uL (0.0-0.2) Test 09/18/18 05:51 09/18/18 12:52 09/18/18 16:43 09/19/18 01:15 Glucose (Fingerstick) 112 mg/dL (70-99) 189 mg/dL (70-99) 155 mg/dL (70-99) 112 mg/dL (70-99) Test 09/19/18 06:42 09/19/18 07:14 09/19/18 11:19 Glucose (Fingerstick) 124 mg/dL (70-99) 117 mg/dL (70-99) 181 mg/dL (70-99) Laboratory Tests Test 09/18/18 16:43 09/19/18 01:15 09/19/18 06:42 09/19/18 07:14 Glucose (Fingerstick) 155 mg/dL (70-99) 112 mg/dL (70-99) 124 mg/dL (70-99) 117 mg/dL (70-99) Test 09/19/18 11:19 Glucose (Fingerstick) 181 mg/dL (70-99) Microbiology 09/09/18 Blood Culture - Final, Complete NO GROWTH AFTER 5 DAYS Medications Current Medications Thiamine Mononitrate (Vitamin B-1) 100 mg 1X STAT PO Last administered on at 14:50; Start 09/09/18 at 14:38; Stop 09/09/18 at 14:41; Status DC Folic Acid (Folic Acid) 1 mg 1X STAT PO Last administered on 09/09/18at 14:50 ; Start 09/09/18 at 14:38; Stop 09/09/18 at 14:41; Status DC Sodium Chloride 1,000 ml @ 1,000 mls/hr 1X ONCE IV Last administered on 09/09at 14:50; Start 09/09/18 at 15:00; Stop 09/09/18 at 15:59; Status DC Labetalol HCl (Normodyne Iv Push) 20 mg 1X ONCE IVP Last administered on 09/09at 16:53; Start 09/09/18 at 17:00; Stop 09/09/18 at 17:01; Status DC Chlordiazepoxide (Librium) 25 mg PRN Q6HRS PRN PO ANXIETY / AGITATION Last administered on 09/09/18at 22:35; Start 09/09/18 at 17:00; Stop 09/10/18 at 10 :35; Status DC Acetaminophen (Tylenol) 500 mg PRN Q6HRS PRN PO MILD PAIN / TEMP; Start at 17:00 Morphine Sulfate (Morphine Sulfate) 2 mg PRN Q2HR PRN IV MODERATE TO SEVERE PAIN Last administered on 09/12/18at 11:14; Start 09/09/18 at 17:00; Stop at 11:45; Status DC Sodium Chloride 1,000 ml @ 100 mls/hr Q10H IV Last administered on 09/09/18at 19:30; Start 09/09/18 at 18:00; Stop 09/10/18 at 10:35; Status DC Multivitamins (Thera M Plus) 1 tab DAILY PO ; Start 09/10/18 at 09:00; Stop at 13:13; Status DC Thiamine Mononitrate (Vitamin B-1) 100 mg DAILY PO ; Start 09/10/18 at 09:00; Stop 09/11/18 at 13:13; Status DC Folic Acid (Folic Acid) 1 mg DAILY PO ; Start 09/10/18 at 09:00; Stop at 13:13; Status DC Labetalol HCl (Normodyne Iv Push) 20 mg PRN Q2HR PRN IVP HYPERTENSION, 2ND CHOICE Last administered on 09/17/18at 14:47; Start 09/09/18 at 17:00 Nicotine (Nicoderm Cq 21mg) 1 patch PRN DAILY PRN TD SMOKING CESSATION; Start 09/09/18 at 17:15; Stop 09/11/18 at 13:13; Status DC Oxycodone/ Acetaminophen (Percocet 5/325) 1 tab PRN Q4HRS PRN PO SEVERE PAIN; Start 09/09/18 at 17:15; Stop 09/15/18 at 12:06; Status DC Diphenhydramine HCl (Benadryl) 25 mg PRN QHS PRN PO INSOMNIA; Start 09/09/18 at 17:15 Aspirin (Children'S Aspirin) 81 mg DAILYWBKFT PO ; Start 09/10/18 at 08:00; Stop 09/12/18 at 09:56; Status DC Atorvastatin Calcium (Lipitor) 40 mg QHS PO Last administered on 09/09/18at 21: 11; Start 09/09/18 at 21:00; Stop 09/12/18 at 09:56; Status DC Atorvastatin Calcium (Lipitor) 40 mg QHS PO ; Start 09/09/18 at 21:00; Status UNV Duloxetine HCl (Cymbalta) 30 mg BID PO Last administered on 09/09/18at 21:12; Start 09/09/18 at 21:00; Stop 09/11/18 at 13:13; Status DC Ferrous Sulfate (Feosol) 325 mg DAILYAC PO ; Start 09/10/18 at 07:30; Stop at 13:13; Status DC Finasteride (Proscar) 5 mg DAILY PO ; Start 09/10/18 at 09:00; Stop 09/12/18 at 09:56; Status DC Lorazepam (Ativan) 0.5 mg PRN DAILY PRN PO ANXIETY / AGITATION; Start at 17:15; Stop 09/10/18 at 10:35; Status DC Metoprolol Tartrate (Lopressor) 25 mg BID PO Last administered on 09/09/18at 21 :12; Start 09/09/18 at 21:00; Stop 09/11/18 at 13:19; Status DC Pantoprazole Sodium (Protonix) 40 mg DAILYAC PO ; Start 09/10/18 at 07:30; Stop 09/11/18 at 12:20; Status DC Tamsulosin HCl (Flomax) 0.4 mg DAILY PO ; Start 09/10/18 at 09:00; Stop at 09:56; Status DC Tramadol HCl (Ultram) 50 mg PRN Q6HRS PRN PO MODERATE PAIN; Start 09/09/18 at 17:15; Stop 09/15/18 at 12:06; Status DC Budesonide (Pulmicort) 0.5 mg RTBID NEB Last administered on 09/12/18at 07:47; Start 09/09/18 at 20:00; Stop 09/12/18 at 11:45; Status DC Diltiazem HCl (Cardizem 24hr Cd) 120 mg DAILY PO ; Start 09/10/18 at 09:00; Stop 09/11/18 at 13:13; Status DC Insulin Glargine (Lantus) 10 units QHS SQ Last administered on 09/09/18at 21:49 ; Start 09/09/18 at 21:00; Stop 09/10/18 at 10:35; Status DC Levothyroxine Sodium (Synthroid) 50 mcg DAILY06 PO ; Start 09/10/18 at 06:00; Stop 09/12/18 at 09:56; Status DC Lidocaine (Lidoderm) 1 patch DAILY TD Last administered on 09/19/18at 07:52; Start 09/10/18 at 09:00 Lisinopril (Prinivil) 2.5 mg DAILY PO ; Start 09/10/18 at 09:00; Stop at 13:13; Status DC Non-Formulary Medication (Tiotropium Stanley (Spiriva)) 2 inh DAILY IH ; Start 09/10/18 at 09:00; Status UNV Warfarin Sodium (Coumadin) 7.5 mg DAILY16 PO ; Start 09/09/18 at 18:00; Stop 09/10/18 at 16:34; Status DC Insulin Human Lispro (HumaLOG) 0-9 UNITS TIDWMEALS SQ ; Start 09/10/18 at 08:00 ; Stop 09/11/18 at 13:13; Status DC Dextrose (Dextrose 50%-Water Syringe) 12.5 gm PRN Q15MIN PRN IV SEE COMMENTS; Start 09/09/18 at 17:15; Stop 09/12/18 at 08:17; Status DC Miscellaneous (Lidoderm Patch Removal) 1 ea QHS MC Last administered on at 21:12; Start 09/09/18 at 21:00 Albuterol/ Ipratropium (Duoneb) 3 ml RTQID NEB Last administered on 09/19/18at 12:03; Start 09/09/18 at 20:00 Warfarin Sodium (Coumadin Per Physician) 1 each PRN DAILY PRN MC SEE COMMENTS Last administered on 09/11/18at 11:21; Start 09/09/18 at 17:30; Stop 09/11/18 at 13:13; Status DC Sodium Chloride 1,000 ml @ 75 mls/hr [id number] IV ; Start 09/09/18 at 17:30; Stop 09/10/18 at 10:35; Status DC Lorazepam (Ativan) 2 mg 1X ONCE IV Last administered on 09/09/18at 17:30; Start 09/09/18 at 17:30; Stop 09/09/18 at 17:31; Status DC Clonidine HCl (Catapres) 0.1 mg PRN Q1HR PRN PO SBP > 180 or DBP > 100, MRX3; Start 09/09/18 at 17:30 Lorazepam (Ativan) 2 mg PRN Q15MIN PRN IV CIWA 8-14 Last administered on at 20:38; Start 09/09/18 at 17:30; Stop 09/15/18 at 12:06; Status DC Albuterol/ Ipratropium (Duoneb) 3 ml 1X ONCE NEB ; Start 09/09/18 at 17:30; Stop 09/09/18 at 17:31; Status DC Levofloxacin/ Dextrose 150 ml @ 100 mls/hr 1X ONCE IV Last administered on at 21:03; Start 09/09/18 at 17:30; Stop 09/09/18 at 18:59; Status DC Albuterol/ Ipratropium (Duoneb) 3 ml RTQID NEB ; Start 09/09/18 at 20:00; Status UNV Guaifenesin (Robitussin Dm) 10 ml PRN Q6HRS PRN PO COUGH; Start 09/09/18 at 19 :00 Levofloxacin/ Dextrose (Levaquin Per Pharmacy) 1 each PRN DAILY PRN MC SEE COMMENTS; Start 09/09/18 at 19:00; Stop 09/11/18 at 09:24; Status DC Heparin Sodium (Porcine) (Heparin Sodium) 5,000 unit Q8HRS SQ Last administered on 09/11/18at 05:48; Start 09/09/18 at 22:00; Stop 09/12/18 at 11 :01; Status DC Levofloxacin/ Dextrose 50 ml @ 50 mls/hr Q24H IV ; Start 09/10/18 at 20:00; Stop 09/10/18 at 20:00; Status DC Haloperidol Lactate (Haldol Inj) 5 mg PRN Q6HRS PRN IVP AGITATION Last administered on 09/15/18at 23:00; Start 09/10/18 at 01:15 Famotidine (Pepcid Vial) 20 mg QHS IVP Last administered on 09/12/18at 20:47; Start 09/10/18 at 21:00; Stop 09/13/18 at 08:50; Status DC Methylprednisolone Sodium Succinate (SOLU-Medrol 40MG VIAL) 40 mg Q12HR IV Last administered on 09/14/18at 08:24; Start 09/10/18 at 09:00; Stop 09/14/18 at 12:49; Status DC Chlordiazepoxide (Librium) 50 mg PRN Q6HRS PRN PO ANXIETY/AGITATION, 2ND CHOICE ; Start 09/10/18 at 10:45; Stop 09/17/18 at 14:33; Status DC Lorazepam (Ativan) 1 mg PRN DAILY PRN PO ANXIETY / AGITATION, 1ST CHOIC; Start 09/10/18 at 10:45; Stop 09/15/18 at 12:06; Status DC Dexmedetomidine HCl 200 mcg/ Sodium Chloride 50 ml @ 0 mls/hr CONT PRN IV PER PROTOCOL Last administered on 09/15/18at 09:03; Start 09/10/18 at 13:30; Stop 09/15/18 at 12:06; Status DC Sodium Chloride 500 ml @ 500 mls/hr 1X PRN PRN IV SEE COMMENTS; Start at 13:30 Atropine Sulfate (ATROPINE 0.5mg SYRINGE) 0.5 mg PRN Q5MIN PRN IV SEE COMMENTS ; Start 09/10/18 at 13:30; Stop 09/12/18 at 13:15; Status DC Levofloxacin/ Dextrose 100 ml @ 100 mls/hr Q24H IV Last administered on at 20:48; Start 09/10/18 at 20:00; Stop 09/11/18 at 09:36; Status DC Enalaprilat (Vasotec Inj) 1.25 mg PRN Q4HRS PRN IVP HYPERTENSION, 1ST CHOICE Last administered on 09/16/18at 20:51; Start 09/11/18 at 02:45 Vancomycin HCl (Vanco Per Pharmacy) 1 each PRN DAILY PRN MC SEE COMMENTS Last administered on 09/14/18at 12:16; Start 09/11/18 at 09:15; Stop 09/15/18 at 10 :49; Status DC Vancomycin HCl 2 gm/Sodium Chloride 500 ml @ 250 mls/hr 1X ONCE IV Last administered on 09/11/18at 10:40; Start 09/11/18 at 09:30; Stop 09/11/18 at 11 :29; Status DC Doxycycline Hyclate (Vibra-Tab) 100 mg BID PO ; Start 09/11/18 at 10:00; Stop 09/11/18 at 15:16; Status DC Cefepime HCl (Maxipime) 1 gm Q8H IVP Last administered on 09/19/18at 01:35; Start 09/11/18 at 10:00; Stop 09/19/18 at 08:14; Status DC Vancomycin HCl 1.75 gm/Sodium Chloride 500 ml @ 250 mls/hr Q12H IV Last administered on 09/12/18at 22:58; Start 09/11/18 at 23:00; Stop 09/12/18 at 23 :59; Status DC Vancomycin HCl (Vancomycin Trough Level) 1 each 1X ONCE MC Last administered on 09/12/18at 22:26; Start 09/12/18 at 22:30; Stop 09/12/18 at 22:31; Status DC Pantoprazole Sodium (PROTONIX VIAL for IV PUSH) 40 mg DAILYAC IVP Last administered on 09/19/18at 07:50; Start 09/11/18 at 12:30 Multivitamins 10 ml/Thiamine HCl 100 mg/Folic Acid 1 mg/Sodium Chloride 1,011.2 ml @ 0 mls/hr DAILY IV Last administered on 09/19/18at 07:50; Start 09/11/18 at 14:00 Insulin Human Lispro (HumaLOG) 0-7 UNITS TIDWMEALS SQ ; Start 09/11/18 at 17:00 ; Stop 09/11/18 at 17:00; Status DC Dextrose (Dextrose 50%-Water Syringe) 12.5 gm PRN Q15MIN PRN IV SEE COMMENTS; Start 09/11/18 at 13:00 Insulin Human Lispro (HumaLOG) 0-7 UNITS Q6HRS SQ Last administered on at 05:41; Start 09/11/18 at 18:00 Levothyroxine Sodium 0.025 mcg/ Sodium Chloride 5 ml @ 0 mls/hr DAILY IVP ; Start 09/11/18 at 13:30; Stop 09/11/18 at 13:52; Status DC Magnesium Sulfate 50 ml @ 25 mls/hr 1X ONCE IV Last administered on at 15:40; Start 09/11/18 at 13:30; Stop 09/11/18 at 15:29; Status DC Levothyroxine Sodium 25 mcg/ Sodium Chloride 5 ml @ 0 mls/hr DAILY IVP Last administered on 09/19/18at 08:23; Start 09/11/18 at 13:52 Levothyroxine Sodium 25 mcg/ Sodium Chloride 5 ml @ 0 mls/hr 1X ONCE IVP Last administered on 09/11/18at 14:45; Start 09/11/18 at 14:45; Stop 09/11/18 at 14 :46; Status DC Doxycycline Hyclate 100 mg/ Dextrose 100 ml @ 50 mls/hr Q12HR IV Last administered on 09/19/18at 07:55; Start 09/11/18 at 16:00; Stop 09/19/18 at 08 :14; Status DC Magnesium Sulfate 50 ml @ 25 mls/hr 1X ONCE IV Last administered on at 12:56; Start 09/12/18 at 11:30; Stop 09/12/18 at 13:29; Status DC Amino Acids/ Glycerin/ Electrolytes 1,000 ml @ 50 mls/hr Q20H IV Last administered on 09/19/18at 03:51; Start 09/12/18 at 11:30 Haloperidol Lactate (Haldol Inj) 10 mg Q8HRS IVP Last administered on at 06:02; Start 09/12/18 at 14:00; Stop 09/16/18 at 13:14; Status DC Dexmedetomidine HCl 200 mcg/ Sodium Chloride 50 ml @ 0 mls/hr CONT PRN IV PER PROTOCOL; Start 09/12/18 at 13:15; Stop 09/12/18 at 14:04; Status DC Sodium Chloride 500 ml @ 500 mls/hr 1X PRN PRN IV SEE COMMENTS; Start at 13:15 Atropine Sulfate (ATROPINE 0.5mg SYRINGE) 0.5 mg PRN Q5MIN PRN IV SEE COMMENTS ; Start 09/12/18 at 13:15 Morphine Sulfate (Morphine Sulfate) 2 mg PRN Q2HR PRN IV PAIN Last administered on 09/14/18at 05:10; Start 09/12/18 at 13:15; Stop 09/14/18 at 12 :57; Status DC Metoprolol Tartrate (Lopressor) 25 mg BID PO ; Start 09/12/18 at 17:00; Stop 09/12/18 at 17:00; Status DC Metoprolol Tartrate (Lopressor Vial) 5 mg Q6HRS IVP Last administered on at 12:57; Start 09/12/18 at 18:00 Vancomycin HCl 2 gm/Sodium Chloride 500 ml @ 250 mls/hr Q12H IV Last administered on 09/14/18at 23:26; Start 09/13/18 at 11:00; Stop 09/15/18 at 10 :49; Status DC Vancomycin HCl (Vancomycin Trough Level) 1 each 1X ONCE MC Last administered on 09/14/18at 10:30; Start 09/14/18 at 10:30; Stop 09/14/18 at 10:31; Status DC Nitroglycerin (Nitro-Bid Oint) 1 inch Q6HRS TP Last administered on 09/19/18at 12:58; Start 09/14/18 at 08:30 Aspirin (Aspirin) 300 mg DAILY OR Last administered on 09/19/18at 07:52; Start 09/14/18 at 11:00 Methylprednisolone Sodium Succinate (SOLU-Medrol 40MG VIAL) 40 mg DAILY IV Last administered on 09/19/18at 07:51; Start 09/15/18 at 09:00 Morphine Sulfate (Morphine Sulfate) 2 mg PRN Q2HR PRN IV PAIN Last administered on 09/17/18at 02:01; Start 09/14/18 at 13:00 Lorazepam (Ativan) 2 mg PRN Q4HRS PRN IV ANXIETY / AGITATION Last administered on 09/15/18at 23:00; Start 09/15/18 at 22:45; Stop 09/16/18 at 13:14; Status DC Haloperidol Lactate (Haldol Inj) 5 mg Q8HRS IVP Last administered on at 06:11; Start 09/16/18 at 14:00; Stop 09/17/18 at 09:42; Status DC Chlordiazepoxide (Librium) 50 mg Q6H PO Last administered on 09/18/18at 08:26; Start 09/17/18 at 15:00; Stop 09/18/18 at 12:41; Status DC Chlordiazepoxide (Librium) 50 mg PRN Q1HR PRN PO For CIWA 8-14; Start at 14:30 Chlordiazepoxide (Librium) 100 mg PRN Q1HR PRN PO For CIWA 15 or greater; Start 09/17/18 at 14:30 Haloperidol Lactate (Haldol Inj) 5 mg PRN Q4HRS PRN IVP Hallucinatns,Confusn, Delirium; Start 09/17/18 at 14:30 Nitroglycerin/ Dextrose 250 ml @ 1.5 mls/hr CONT PRN IV SEE I/O RECORD; Start 09/17/18 at 15:30; Stop 09/19/18 at 10:52; Status DC Lorazepam (Ativan) 1 mg PRN Q4HRS PRN IV ANXIETY / AGITATION; Start 09/17/18 at 15:45 Lorazepam (Ativan) 2 mg PRN Q4HRS PRN IV ANXIETY / AGITATION Last administered on 09/19/18at 13:10; Start 09/17/18 at 16:00 Chlordiazepoxide (Librium) 25 mg Q6H PO Last administered on 09/19/18at 07:51; Start 09/18/18 at 15:00 Enoxaparin Sodium (Lovenox 40mg Syringe) 40 mg Q24H SQ Last administered on at 12:59; Start 09/19/18 at 12:00 Active Scripts Active Pantoprazole Sodium 40 Mg Tablet.dr 40 Mg PO DAILYAC Lidoderm (Lidocaine) 700 Mg Adh..patch 1 Patch TD DAILY 12hours on, 12 hours off Lisinopril 2.5 Mg Tablet 2.5 Mg PO DAILY Feosol (Ferrous Sulfate) 325 Mg Tablet 325 Mg PO DAILYAC Children's Aspirin (Aspirin) 81 Mg Tab.chew 81 Mg PO DAILYWBKFT Reported Ventolin Hfa Inhaler (Albuterol Sulfate) 18 Gm Hfa.aer.ad 2 Puff INH Q4HRS Mirtazapine 45 Mg Tablet 1 Tab PO QHS Glipizide 5 Mg Tablet 1 Tab PO BID Metformin Hcl 1,000 Mg Tablet 1,000 Mg PO BIDWMEALS Lantus (Insulin Glargine,Hum.rec.anlog) 100 Unit/1 Ml Vial 50 Unit SQ HS NITROGLYCERIN SubLingual (Nitroglycerin) 0.4 Mg Tab.subl 0.4 Mg SL PRN Q5MIN PRN Fluoxetine Hcl 20 Mg Capsule 3 Cap PO DAILY Novolin R (Insulin Regular, Human) 100 Unit/1 Ml Vial 100 Unit IJ QIDACHS Vitamin D3 (Cholecalciferol (Vitamin D3)) 1,000 Unit Tablet 1 Tab PO TID Vitamin B-12 (Cyanocobalamin (Vitamin B-12)) 1,000 Mcg Tablet 1 Tab PO DAILY Gemfibrozil 600 Mg Tablet 0.5 Tab PO BID Pepcid (Famotidine) 20 Mg Tablet 10 Mg PO BID Cardizem Cd (Diltiazem Hcl) 240 Mg Cap.er.24h 1 Cap PO DAILY Robaxin (Methocarbamol) 500 Mg Tablet 1 Tab PO BID PRN Niaspan (Niacin) 500 Mg Tab.er.24h 1 Tab PO QHS Gabapentin 600 Mg Tablet 300 Mg PO QID Symbicort 80-4.5 Mcg Inhaler (Budesonide/Formoterol Fumarate) 10.2 Gm Hfa.aer.ad 2 Puff IH BID Finasteride 5 Mg Tablet 1 Tab PO DAILY Levothyroxine Sodium 50 Mcg Tablet 1 Tab PO DAILY Tamsulosin Hcl 0.4 Mg Cap.er.24h 0.4 Mg PO BID Spiriva (Tiotropium Stanley) 18 Mcg Cap.w.dev 2 Inh IH DAILY Hydrocodone-Apap 7.5-325 (Hydrocodone Bit/Acetaminophen) 1 Each Tablet 1 Tab PO Q4HRS PRN Metoprolol Tartrate 25 Mg Tablet 1 Tab PO BID Vitals/I & O Vital Sign - Last 24 Hours 09/18/18 09/18/18 09/18/18 09/18/18 15:47 16:03 17:39 17:45 Temp 98.3 98.3 Pulse 86 86 86 Resp 20 B/P (MAP) 137/90 (106) 137/90 137/90 Pulse Ox 94 O2 Delivery Room Air Room Air 09/18/18 09/18/18 09/18/18 09/18/18 19:54 19:55 20:00 23:51 Temp 98.2 97.7 98.2 97.7 Pulse 93 94 Resp 24 B/P (MAP) 132/86 (101) 153/90 (111) Pulse Ox 94 91 O2 Delivery Room Air Room Air Room Air Room Air O2 Flow Rate 4.0 09/19/18 09/19/18 09/19/18 09/19/18 01:26 01:27 03:59 06:35 Temp 98.2 98.2 Pulse 94 94 88 94 Resp 20 B/P (MAP) 153/90 153/90 151/96 (114) 159/100 Pulse Ox 92 O2 Delivery Room Air 09/19/18 09/19/18 09/19/18 09/19/18 06:36 07:28 07:56 08:00 Temp 98.9 98.9 Pulse 94 86 Resp 20 B/P (MAP) 159/100 119/72 (88) Pulse Ox 95 95 O2 Delivery Nasal Cannula Room Air O2 Flow Rate 2.0 2.0 09/19/18 09/19/18 09/19/18 09/19/18 08:00 12:00 12:05 12:57 Temp 99.0 99.0 Pulse 97 97 Resp 20 B/P (MAP) 173/94 (120) 173/94 Pulse Ox 93 95 O2 Delivery Room Air Room Air Room Air O2 Flow Rate 2.0 09/19/18 12:58 Pulse 97 B/P (MAP) 173/94 Intake and Output 09/18/18 09/18/18 09/19/18 15:01 23:01 07:01 Intake Total 913.46 ml 0 ml Output Total 635 ml 1350 ml Balance 278.46 ml -1350 ml LESLEY PALM MD Sep 19, 2018 15:18
[2018-09-19 16:05] VITALS: BP 130/64
[2018-09-19 19:05] VITALS: BP 154/93
[2018-09-19] MEDS: PATCH REMOVAL. MC SCH (20:10)
[2018-09-19 23:05] VITALS: BP 160/105
[2018-09-20] MEDS: chlordiazePOXIDE HCL 25 MG CAPSULE PO SCH ×2 (03:00→08:10)
[2018-09-20 06:13] VITALS: BP 129/80
[2018-09-20] MEDS: METOPROLOL TARTRATE 5 MG/5 ML VIAL. IVP SCH ×4 (06:16→23:09)
[2018-09-20] MEDS: NITROGLYCERIN OINT 1 GM PACKET. TP SCH ×4 (06:16→23:22)
[2018-09-20] MEDS: INSULIN LISPRO 300 UNITS/3 ML INSULN.PEN. SQ SCH ×4 (06:26→23:17)
[2018-09-20 07:00] VITALS: BP 114/84
[2018-09-20] MEDS: IPRATRPIUM/ALBUTEROL 0.5/2.5MG 3 ML NEBU. NEB SCH ×4 (07:17→19:54)
[2018-09-20] MEDS: MULTIVIT INFUSN,ADULT 4,VIT K 10 ML, THIAMINE INJ 100 MG, FOLIC ACID INJ 1 MG in IV NOR... IV SCH (08:14)
[2018-09-20] MEDS: PANTOPRAZOLE IV PUSH 40 MG VIAL. IVP SCH (08:15)
[2018-09-20] MEDS: methylPREDNISolone SOD SUCC PF 40 MG/ML VIAL. IV SCH (08:15)
[2018-09-20] MEDS: LIDOCAINE (700MG/PATCH) PATCH. TD SCH (08:15)
[2018-09-20] MEDS: ASPIRIN 300 MG SUPP.RECT PR SCH (08:15)
[2018-09-20] MEDS: LEVOTHYROXINE SODIUM IVP SCH (08:16)
[2018-09-20] MEDS: NORMAL SALINE IVP SCH (08:16)
--- NOTE | 2018-09-20 09:36 | PDOC ---
PULMONARY PROGRESS NOTES Subjective pt sleepy from medication no resp distress Vitals Vital Signs Date Time Temp Pulse Resp B/P (MAP) Pulse Ox O2 Delivery O2 Flow Rate FiO2 09/20/18 07:17 96 Nasal Cannula 2.0 09/20/18 07:00 98.6 77 24 114/84 (94) 98.6 ROS: No Nausea, No Chest Pain, No Abdominal Pain, No Increase Cough General: Alert Lungs: Crackles Cardiovascular: S1, S2 Abdomen: Soft, Other (OBESE) Extremities: Other (EDEMA) Skin: Warm Labs Laboratory Tests Test 09/18/18 12:52 09/18/18 16:43 09/19/18 01:15 09/19/18 06:42 Glucose (Fingerstick) 189 mg/dL (70-99) 155 mg/dL (70-99) 112 mg/dL (70-99) 124 mg/dL (70-99) Test 09/19/18 07:14 09/19/18 11:19 09/19/18 17:25 09/19/18 20:34 Glucose (Fingerstick) 117 mg/dL (70-99) 181 mg/dL (70-99) 137 mg/dL (70-99) 124 mg/dL (70-99) Test 09/20/18 06:24 09/20/18 07:14 Glucose (Fingerstick) 119 mg/dL (70-99) 116 mg/dL (70-99) Laboratory Tests Test 09/19/18 11:19 09/19/18 17:25 09/19/18 20:34 09/20/18 06:24 Glucose (Fingerstick) 181 mg/dL (70-99) 137 mg/dL (70-99) 124 mg/dL (70-99) 119 mg/dL (70-99) Test 09/20/18 07:14 Glucose (Fingerstick) 116 mg/dL (70-99) Medications Active Scripts Medications Dose Route/Sig Max Daily Dose Days Date Category Dose Instructions Ventolin Hfa Inhaler (Albuterol Sulfate) 18 Gm Hfa.aer.ad 2 Puff INH Q4HRS 09/11/18 Reported Mirtazapine 45 Mg Tablet 1 Tab PO QHS 09/11/18 Reported Glipizide 5 Mg Tablet 1 Tab PO BID 09/11/18 Reported Metformin Hcl 1,000 Mg Tablet 1,000 Mg PO BIDWMEALS 09/11/18 Reported Lantus (Insulin Glargine,Hum.rec.anlog) 100 Unit/1 Ml Vial 50 Unit SQ HS 09/11/18 Reported NITROGLYCERIN SubLingual (Nitroglycerin) 0.4 Mg Tab.subl 0.4 Mg SL PRN Q5MIN PRN 09/11/18 Reported Fluoxetine Hcl 20 Mg Capsule 3 Cap PO DAILY 09/11/18 Reported Novolin R (Insulin Regular, Human) 100 Unit/1 Ml Vial 100 Unit IJ QIDACHS 09/11/18 Reported Vitamin D3 (Cholecalciferol (Vitamin D3)) 1,000 Unit Tablet 1 Tab PO TID 09/11/18 Reported Vitamin B-12 (Cyanocobalamin (Vitamin B-12)) 1,000 Mcg Tablet 1 Tab PO DAILY 09/11/18 Reported Gemfibrozil 600 Mg Tablet 0.5 Tab PO BID 09/11/18 Reported Pepcid (Famotidine) 20 Mg Tablet 10 Mg PO BID 09/11/18 Reported Cardizem Cd (Diltiazem Hcl) 240 Mg Cap.er.24h 1 Cap PO DAILY 09/11/18 Reported Robaxin (Methocarbamol) 500 Mg Tablet 1 Tab PO BID PRN 09/11/18 Reported Niaspan (Niacin) 500 Mg Tab.er.24h 1 Tab PO QHS 09/11/18 Reported Gabapentin 600 Mg Tablet 300 Mg PO QID 09/11/18 Reported Pantoprazole Sodium 40 Mg Tablet.dr 40 Mg PO DAILYAC 07/16/16 Rx Lidoderm (Lidocaine) 700 Mg Adh..patch 1 Patch TD DAILY 07/16/16 Rx 12hours on, 12 hours off Lisinopril 2.5 Mg Tablet 2.5 Mg PO DAILY 07/16/16 Rx Feosol (Ferrous Sulfate) 325 Mg Tablet 325 Mg PO DAILYAC 07/16/16 Rx Children's Aspirin (Aspirin) 81 Mg Tab.chew 81 Mg PO DAILYWBKFT 07/16/16 Rx Symbicort 80-4.5 Mcg Inhaler (Budesonide/Formoterol Fumarate) 10.2 Gm Hfa.aer.ad 2 Puff IH BID 07/09/16 Reported Finasteride 5 Mg Tablet 1 Tab PO DAILY 07/09/16 Reported Levothyroxine Sodium 50 Mcg Tablet 1 Tab PO DAILY 07/09/16 Reported Tamsulosin Hcl 0.4 Mg Cap.er.24h 0.4 Mg PO BID 07/09/16 Reported Spiriva (Tiotropium [place]) 18 Mcg Cap.w.dev 2 Inh IH DAILY 07/09/16 Reported Hydrocodone-Apap 7.5-325 (Hydrocodone Bit/Acetaminophen) 1 Each Tablet 1 Tab PO Q4HRS PRN 07/09/16 Reported Metoprolol Tartrate 25 Mg Tablet 1 Tab PO BID 07/09/16 Reported Comments IMPRESSION: Mild patchy opacities in the right lung base may be secondary to subsegmental atelectasis or pneumonia. Findings of COPD. Impression . IMPRESSION: 1. Acute hypoxemic respiratory failure, multifactorial in etiolog 2. Abnormal chest x-ray/PNEUMONIA 3. Acute exacerbation of chronic obstructive pulmonary disease. 4. Acute bronchitis versus pneumonia. 5. METABOLIC/TOXIC Encephalopathy POA 6. Acute kidney injury. 7. Obstructive sleep apnea-hypopnea syndrome. 8. CAD S/P CABG 9. Hypertension. 10. BACTEREMIA/SEPSIS PER ID Impression: Right internal jugular catheter terminates at the expected level of the superior aspect of the superior vena cava. No pneumothorax. Pulmonary vasculature congestion. Plan . SEE ORDERS I THINK HE WAS DOING BETTER WHEN HE WAS OFF LIBRIUM AND GETTING PRN HALDOL WILL CONSULT SPEECH AND PT HOPEFULLY TRANSFER OR D/C SOON WILL CONTINUE PRN BIPAP PRN SEDATION FOR AGITATION SPOKE WITH ARLYN FENTON MD Sep 20, 2018 09:36
--- NOTE | 2018-09-20 10:25 | PDOC ---
PROGRESS NOTES Assessment Problems Medical Problems: (1) Acute kidney injury Status: Acute (2) Alcohol withdrawal Status: Acute (3) Pneumonia Status: Acute (4) Rhabdomyolysis Status: Acute Toxic encephalopathy due to narcotics. Hypertensive encephalopathy. Alcohol intoxication and component of Wernicke's monitored delirium tremens, hallucinations Brain MRI negative is concerned about tremors, most likely these are alcohol withdrawal and benzodiazepine withdrawal, but he is on haloperidol which could cause tremor Plan Chlordiazepoxide, scheduled dose, watch for sedation I don't think he needs EEG anymore, given improvement D/C haloperidol Discussed with May need transfer to geriatric psychiatry Objective Vital Signs Date Time Temp Pulse Resp B/P (MAP) Pulse Ox O2 Delivery O2 Flow Rate FiO2 09/20/18 08:00 Nasal Cannula 2.0 09/20/18 07:17 96 09/20/18 07:00 98.6 77 24 114/84 (94) 98.6 Intake and Output 09/20/18 07:01 Intake Total 0 ml Output Total 1750 ml Balance -1750 ml Intake Oral 0 ml Output Urine Total 1750 ml PHYSICAL EXAM Sleepy, just got Ativan for agitation PERRL. EOMI. CN: no focal findings. Muscle tone: normal. Muscle strength: moves slightly to command DTR: 1+ Plantar reflex: Flexor Gait: not examined in bed. Sensory exam: no abnormal findings. Cerebellar: No limb ataxia, no tremor Review of Relevant I have reviewed the following items barby (where applicable) has been applied. Labs Laboratory Tests Test 09/18/18 12:52 09/18/18 16:43 09/19/18 01:15 09/19/18 06:42 Glucose (Fingerstick) 189 mg/dL (70-99) 155 mg/dL (70-99) 112 mg/dL (70-99) 124 mg/dL (70-99) Test 09/19/18 07:14 09/19/18 11:19 09/19/18 17:25 09/19/18 20:34 Glucose (Fingerstick) 117 mg/dL (70-99) 181 mg/dL (70-99) 137 mg/dL (70-99) 124 mg/dL (70-99) Test 09/20/18 06:24 09/20/18 07:14 Glucose (Fingerstick) 119 mg/dL (70-99) 116 mg/dL (70-99) Laboratory Tests Test 09/19/18 11:19 09/19/18 17:25 09/19/18 20:34 09/20/18 06:24 Glucose (Fingerstick) 181 mg/dL (70-99) 137 mg/dL (70-99) 124 mg/dL (70-99) 119 mg/dL (70-99) Test 09/20/18 07:14 Glucose (Fingerstick) 116 mg/dL (70-99) Microbiology 09/09/18 Blood Culture - Final, Complete NO GROWTH AFTER 5 DAYS Medications Current Medications Thiamine Mononitrate (Vitamin B-1) 100 mg 1X STAT PO Last administered on at 14:50; Start 09/09/18 at 14:38; Stop 09/09/18 at 14:41; Status DC Folic Acid (Folic Acid) 1 mg 1X STAT PO Last administered on 09/09/18at 14:50 ; Start 09/09/18 at 14:38; Stop 09/09/18 at 14:41; Status DC Sodium Chloride 1,000 ml @ 1,000 mls/hr 1X ONCE IV Last administered on 09/09at 14:50; Start 09/09/18 at 15:00; Stop 09/09/18 at 15:59; Status DC Labetalol HCl (Normodyne Iv Push) 20 mg 1X ONCE IVP Last administered on 09/09at 16:53; Start 09/09/18 at 17:00; Stop 09/09/18 at 17:01; Status DC Chlordiazepoxide (Librium) 25 mg PRN Q6HRS PRN PO ANXIETY / AGITATION Last administered on 09/09/18at 22:35; Start 09/09/18 at 17:00; Stop 09/10/18 at 10 :35; Status DC Acetaminophen (Tylenol) 500 mg PRN Q6HRS PRN PO MILD PAIN / TEMP; Start at 17:00 Morphine Sulfate (Morphine Sulfate) 2 mg PRN Q2HR PRN IV MODERATE TO SEVERE PAIN Last administered on 09/12/18at 11:14; Start 09/09/18 at 17:00; Stop at 11:45; Status DC Sodium Chloride 1,000 ml @ 100 mls/hr Q10H IV Last administered on 09/09/18at 19:30; Start 09/09/18 at 18:00; Stop 09/10/18 at 10:35; Status DC Multivitamins (Thera M Plus) 1 tab DAILY PO ; Start 09/10/18 at 09:00; Stop at 13:13; Status DC Thiamine Mononitrate (Vitamin B-1) 100 mg DAILY PO ; Start 09/10/18 at 09:00; Stop 09/11/18 at 13:13; Status DC Folic Acid (Folic Acid) 1 mg DAILY PO ; Start 09/10/18 at 09:00; Stop at 13:13; Status DC Labetalol HCl (Normodyne Iv Push) 20 mg PRN Q2HR PRN IVP HYPERTENSION, 2ND CHOICE Last administered on 09/17/18at 14:47; Start 09/09/18 at 17:00 Nicotine (Nicoderm Cq 21mg) 1 patch PRN DAILY PRN TD SMOKING CESSATION; Start 09/09/18 at 17:15; Stop 09/11/18 at 13:13; Status DC Oxycodone/ Acetaminophen (Percocet 5/325) 1 tab PRN Q4HRS PRN PO SEVERE PAIN; Start 09/09/18 at 17:15; Stop 09/15/18 at 12:06; Status DC Diphenhydramine HCl (Benadryl) 25 mg PRN QHS PRN PO INSOMNIA; Start 09/09/18 at 17:15 Aspirin (Children'S Aspirin) 81 mg DAILYWBKFT PO ; Start 09/10/18 at 08:00; Stop 09/12/18 at 09:56; Status DC Atorvastatin Calcium (Lipitor) 40 mg QHS PO Last administered on 09/09/18at 21: 11; Start 09/09/18 at 21:00; Stop 09/12/18 at 09:56; Status DC Atorvastatin Calcium (Lipitor) 40 mg QHS PO ; Start 09/09/18 at 21:00; Status UNV Duloxetine HCl (Cymbalta) 30 mg BID PO Last administered on 09/09/18at 21:12; Start 09/09/18 at 21:00; Stop 09/11/18 at 13:13; Status DC Ferrous Sulfate (Feosol) 325 mg DAILYAC PO ; Start 09/10/18 at 07:30; Stop at 13:13; Status DC Finasteride (Proscar) 5 mg DAILY PO ; Start 09/10/18 at 09:00; Stop 09/12/18 at 09:56; Status DC Lorazepam (Ativan) 0.5 mg PRN DAILY PRN PO ANXIETY / AGITATION; Start at 17:15; Stop 09/10/18 at 10:35; Status DC Metoprolol Tartrate (Lopressor) 25 mg BID PO Last administered on 09/09/18at 21 :12; Start 09/09/18 at 21:00; Stop 09/11/18 at 13:19; Status DC Pantoprazole Sodium (Protonix) 40 mg DAILYAC PO ; Start 09/10/18 at 07:30; Stop 09/11/18 at 12:20; Status DC Tamsulosin HCl (Flomax) 0.4 mg DAILY PO ; Start 09/10/18 at 09:00; Stop at 09:56; Status DC Tramadol HCl (Ultram) 50 mg PRN Q6HRS PRN PO MODERATE PAIN; Start 09/09/18 at 17:15; Stop 09/15/18 at 12:06; Status DC Budesonide (Pulmicort) 0.5 mg RTBID NEB Last administered on 09/12/18at 07:47; Start 09/09/18 at 20:00; Stop 09/12/18 at 11:45; Status DC Diltiazem HCl (Cardizem 24hr Cd) 120 mg DAILY PO ; Start 09/10/18 at 09:00; Stop 09/11/18 at 13:13; Status DC Insulin Glargine (Lantus) 10 units QHS SQ Last administered on 09/09/18at 21:49 ; Start 09/09/18 at 21:00; Stop 09/10/18 at 10:35; Status DC Levothyroxine Sodium (Synthroid) 50 mcg DAILY06 PO ; Start 09/10/18 at 06:00; Stop 09/12/18 at 09:56; Status DC Lidocaine (Lidoderm) 1 patch DAILY TD Last administered on 09/20/18at 08:15; Start 09/10/18 at 09:00 Lisinopril (Prinivil) 2.5 mg DAILY PO ; Start 09/10/18 at 09:00; Stop at 13:13; Status DC Non-Formulary Medication (Tiotropium Sandwich (Spiriva)) 2 inh DAILY IH ; Start 09/10/18 at 09:00; Status UNV Warfarin Sodium (Coumadin) 7.5 mg DAILY16 PO ; Start 09/09/18 at 18:00; Stop 09/10/18 at 16:34; Status DC Insulin Human Lispro (HumaLOG) 0-9 UNITS TIDWMEALS SQ ; Start 09/10/18 at 08:00 ; Stop 09/11/18 at 13:13; Status DC Dextrose (Dextrose 50%-Water Syringe) 12.5 gm PRN Q15MIN PRN IV SEE COMMENTS; Start 09/09/18 at 17:15; Stop 09/12/18 at 08:17; Status DC Miscellaneous (Lidoderm Patch Removal) 1 ea QHS MC Last administered on at 20:10; Start 09/09/18 at 21:00 Albuterol/ Ipratropium (Duoneb) 3 ml RTQID NEB Last administered on 09/20/18at 07:17; Start 09/09/18 at 20:00 Warfarin Sodium (Coumadin Per Physician) 1 each PRN DAILY PRN MC SEE COMMENTS Last administered on 09/11/18at 11:21; Start 09/09/18 at 17:30; Stop 09/11/18 at 13:13; Status DC Sodium Chloride 1,000 ml @ 75 mls/hr [id number] IV ; Start 09/09/18 at 17:30; Stop 09/10/18 at 10:35; Status DC Lorazepam (Ativan) 2 mg 1X ONCE IV Last administered on 09/09/18at 17:30; Start 09/09/18 at 17:30; Stop 09/09/18 at 17:31; Status DC Clonidine HCl (Catapres) 0.1 mg PRN Q1HR PRN PO SBP > 180 or DBP > 100, MRX3; Start 09/09/18 at 17:30 Lorazepam (Ativan) 2 mg PRN Q15MIN PRN IV CIWA 8-14 Last administered on at 20:38; Start 09/09/18 at 17:30; Stop 09/15/18 at 12:06; Status DC Albuterol/ Ipratropium (Duoneb) 3 ml 1X ONCE NEB ; Start 09/09/18 at 17:30; Stop 09/09/18 at 17:31; Status DC Levofloxacin/ Dextrose 150 ml @ 100 mls/hr 1X ONCE IV Last administered on at 21:03; Start 09/09/18 at 17:30; Stop 09/09/18 at 18:59; Status DC Albuterol/ Ipratropium (Duoneb) 3 ml RTQID NEB ; Start 09/09/18 at 20:00; Status UNV Guaifenesin (Robitussin Dm) 10 ml PRN Q6HRS PRN PO COUGH; Start 09/09/18 at 19 :00 Levofloxacin/ Dextrose (Levaquin Per Pharmacy) 1 each PRN DAILY PRN MC SEE COMMENTS; Start 09/09/18 at 19:00; Stop 09/11/18 at 09:24; Status DC Heparin Sodium (Porcine) (Heparin Sodium) 5,000 unit Q8HRS SQ Last administered on 09/11/18at 05:48; Start 09/09/18 at 22:00; Stop 09/12/18 at 11 :01; Status DC Levofloxacin/ Dextrose 50 ml @ 50 mls/hr Q24H IV ; Start 09/10/18 at 20:00; Stop 09/10/18 at 20:00; Status DC Haloperidol Lactate (Haldol Inj) 5 mg PRN Q6HRS PRN IVP AGITATION Last administered on 09/15/18at 23:00; Start 09/10/18 at 01:15; Stop 09/19/18 at 15 :15; Status DC Famotidine (Pepcid Vial) 20 mg QHS IVP Last administered on 09/12/18at 20:47; Start 09/10/18 at 21:00; Stop 09/13/18 at 08:50; Status DC Methylprednisolone Sodium Succinate (SOLU-Medrol 40MG VIAL) 40 mg Q12HR IV Last administered on 09/14/18at 08:24; Start 09/10/18 at 09:00; Stop 09/14/18 at 12:49; Status DC Chlordiazepoxide (Librium) 50 mg PRN Q6HRS PRN PO ANXIETY/AGITATION, 2ND CHOICE ; Start 09/10/18 at 10:45; Stop 09/17/18 at 14:33; Status DC Lorazepam (Ativan) 1 mg PRN DAILY PRN PO ANXIETY / AGITATION, 1ST CHOIC; Start 09/10/18 at 10:45; Stop 09/15/18 at 12:06; Status DC Dexmedetomidine HCl 200 mcg/ Sodium Chloride 50 ml @ 0 mls/hr CONT PRN IV PER PROTOCOL Last administered on 09/15/18at 09:03; Start 09/10/18 at 13:30; Stop 09/15/18 at 12:06; Status DC Sodium Chloride 500 ml @ 500 mls/hr 1X PRN PRN IV SEE COMMENTS; Start at 13:30 Atropine Sulfate (ATROPINE 0.5mg SYRINGE) 0.5 mg PRN Q5MIN PRN IV SEE COMMENTS ; Start 09/10/18 at 13:30; Stop 09/12/18 at 13:15; Status DC Levofloxacin/ Dextrose 100 ml @ 100 mls/hr Q24H IV Last administered on at 20:48; Start 09/10/18 at 20:00; Stop 09/11/18 at 09:36; Status DC Enalaprilat (Vasotec Inj) 1.25 mg PRN Q4HRS PRN IVP HYPERTENSION, 1ST CHOICE Last administered on 09/16/18at 20:51; Start 09/11/18 at 02:45 Vancomycin HCl (Vanco Per Pharmacy) 1 each PRN DAILY PRN MC SEE COMMENTS Last administered on 09/14/18at 12:16; Start 09/11/18 at 09:15; Stop 09/15/18 at 10 :49; Status DC Vancomycin HCl 2 gm/Sodium Chloride 500 ml @ 250 mls/hr 1X ONCE IV Last administered on 09/11/18at 10:40; Start 09/11/18 at 09:30; Stop 09/11/18 at 11 :29; Status DC Doxycycline Hyclate (Vibra-Tab) 100 mg BID PO ; Start 09/11/18 at 10:00; Stop 09/11/18 at 15:16; Status DC Cefepime HCl (Maxipime) 1 gm Q8H IVP Last administered on 09/19/18at 01:35; Start 09/11/18 at 10:00; Stop 09/19/18 at 08:14; Status DC Vancomycin HCl 1.75 gm/Sodium Chloride 500 ml @ 250 mls/hr Q12H IV Last administered on 09/12/18at 22:58; Start 09/11/18 at 23:00; Stop 09/12/18 at 23 :59; Status DC Vancomycin HCl (Vancomycin Trough Level) 1 each 1X ONCE MC Last administered on 09/12/18at 22:26; Start 09/12/18 at 22:30; Stop 09/12/18 at 22:31; Status DC Pantoprazole Sodium (PROTONIX VIAL for IV PUSH) 40 mg DAILYAC IVP Last administered on 09/20/18at 08:15; Start 09/11/18 at 12:30 Multivitamins 10 ml/Thiamine HCl 100 mg/Folic Acid 1 mg/Sodium Chloride 1,011.2 ml @ 0 mls/hr DAILY IV Last administered on 09/20/18at 08:14; Start 09/11/18 at 14:00 Insulin Human Lispro (HumaLOG) 0-7 UNITS TIDWMEALS SQ ; Start 09/11/18 at 17:00 ; Stop 09/11/18 at 17:00; Status DC Dextrose (Dextrose 50%-Water Syringe) 12.5 gm PRN Q15MIN PRN IV SEE COMMENTS; Start 09/11/18 at 13:00 Insulin Human Lispro (HumaLOG) 0-7 UNITS Q6HRS SQ Last administered on at 05:41; Start 09/11/18 at 18:00 Levothyroxine Sodium 0.025 mcg/ Sodium Chloride 5 ml @ 0 mls/hr DAILY IVP ; Start 09/11/18 at 13:30; Stop 09/11/18 at 13:52; Status DC Magnesium Sulfate 50 ml @ 25 mls/hr 1X ONCE IV Last administered on at 15:40; Start 09/11/18 at 13:30; Stop 09/11/18 at 15:29; Status DC Levothyroxine Sodium 25 mcg/ Sodium Chloride 5 ml @ 0 mls/hr DAILY IVP Last administered on 09/20/18at 08:16; Start 09/11/18 at 13:52 Levothyroxine Sodium 25 mcg/ Sodium Chloride 5 ml @ 0 mls/hr 1X ONCE IVP Last administered on 09/11/18at 14:45; Start 09/11/18 at 14:45; Stop 09/11/18 at 14 :46; Status DC Doxycycline Hyclate 100 mg/ Dextrose 100 ml @ 50 mls/hr Q12HR IV Last administered on 09/19/18at 07:55; Start 09/11/18 at 16:00; Stop 09/19/18 at 08 :14; Status DC Magnesium Sulfate 50 ml @ 25 mls/hr 1X ONCE IV Last administered on at 12:56; Start 09/12/18 at 11:30; Stop 09/12/18 at 13:29; Status DC Amino Acids/ Glycerin/ Electrolytes 1,000 ml @ 50 mls/hr Q20H IV Last administered on 09/19/18at 22:11; Start 09/12/18 at 11:30 Haloperidol Lactate (Haldol Inj) 10 mg Q8HRS IVP Last administered on at 06:02; Start 09/12/18 at 14:00; Stop 09/16/18 at 13:14; Status DC Dexmedetomidine HCl 200 mcg/ Sodium Chloride 50 ml @ 0 mls/hr CONT PRN IV PER PROTOCOL; Start 09/12/18 at 13:15; Stop 09/12/18 at 14:04; Status DC Sodium Chloride 500 ml @ 500 mls/hr 1X PRN PRN IV SEE COMMENTS; Start at 13:15 Atropine Sulfate (ATROPINE 0.5mg SYRINGE) 0.5 mg PRN Q5MIN PRN IV SEE COMMENTS ; Start 09/12/18 at 13:15 Morphine Sulfate (Morphine Sulfate) 2 mg PRN Q2HR PRN IV PAIN Last administered on 09/14/18at 05:10; Start 09/12/18 at 13:15; Stop 09/14/18 at 12 :57; Status DC Metoprolol Tartrate (Lopressor) 25 mg BID PO ; Start 09/12/18 at 17:00; Stop 09/12/18 at 17:00; Status DC Metoprolol Tartrate (Lopressor Vial) 5 mg Q6HRS IVP Last administered on at 06:16; Start 09/12/18 at 18:00 Vancomycin HCl 2 gm/Sodium Chloride 500 ml @ 250 mls/hr Q12H IV Last administered on 09/14/18at 23:26; Start 09/13/18 at 11:00; Stop 09/15/18 at 10 :49; Status DC Vancomycin HCl (Vancomycin Trough Level) 1 each 1X ONCE MC Last administered on 09/14/18at 10:30; Start 09/14/18 at 10:30; Stop 09/14/18 at 10:31; Status DC Nitroglycerin (Nitro-Bid Oint) 1 inch Q6HRS TP Last administered on 09/20/18at 06:16; Start 09/14/18 at 08:30 Aspirin (Aspirin) 300 mg DAILY NC Last administered on 09/20/18at 08:15; Start 09/14/18 at 11:00 Methylprednisolone Sodium Succinate (SOLU-Medrol 40MG VIAL) 40 mg DAILY IV Last administered on 09/20/18at 08:15; Start 09/15/18 at 09:00 Morphine Sulfate (Morphine Sulfate) 2 mg PRN Q2HR PRN IV PAIN Last administered on 09/17/18at 02:01; Start 09/14/18 at 13:00 Lorazepam (Ativan) 2 mg PRN Q4HRS PRN IV ANXIETY / AGITATION Last administered on 09/15/18at 23:00; Start 09/15/18 at 22:45; Stop 09/16/18 at 13:14; Status DC Haloperidol Lactate (Haldol Inj) 5 mg Q8HRS IVP Last administered on at 06:11; Start 09/16/18 at 14:00; Stop 09/17/18 at 09:42; Status DC Chlordiazepoxide (Librium) 50 mg Q6H PO Last administered on 09/18/18at 08:26; Start 09/17/18 at 15:00; Stop 09/18/18 at 12:41; Status DC Chlordiazepoxide (Librium) 50 mg PRN Q1HR PRN PO For CIWA 8-14; Start at 14:30 Chlordiazepoxide (Librium) 100 mg PRN Q1HR PRN PO For CIWA 15 or greater; Start 09/17/18 at 14:30 Haloperidol Lactate (Haldol Inj) 5 mg PRN Q4HRS PRN IVP Hallucinatns,Confusn, Delirium; Start 09/17/18 at 14:30 Nitroglycerin/ Dextrose 250 ml @ 1.5 mls/hr CONT PRN IV SEE I/O RECORD; Start 09/17/18 at 15:30; Stop 09/19/18 at 10:52; Status DC Lorazepam (Ativan) 1 mg PRN Q4HRS PRN IV ANXIETY / AGITATION; Start 09/17/18 at 15:45 Lorazepam (Ativan) 2 mg PRN Q4HRS PRN IV ANXIETY / AGITATION Last administered on 09/20/18at 08:14; Start 09/17/18 at 16:00 Chlordiazepoxide (Librium) 25 mg Q6H PO Last administered on 09/20/18at 08:10; Start 09/18/18 at 15:00 Enoxaparin Sodium (Lovenox 40mg Syringe) 40 mg Q24H SQ Last administered on at 12:59; Start 09/19/18 at 12:00 Active Scripts Active Pantoprazole Sodium 40 Mg Tablet.dr 40 Mg PO DAILYAC Lidoderm (Lidocaine) 700 Mg Adh..patch 1 Patch TD DAILY 12hours on, 12 hours off Lisinopril 2.5 Mg Tablet 2.5 Mg PO DAILY Feosol (Ferrous Sulfate) 325 Mg Tablet 325 Mg PO DAILYAC Children's Aspirin (Aspirin) 81 Mg Tab.chew 81 Mg PO DAILYWBKFT Reported Ventolin Hfa Inhaler (Albuterol Sulfate) 18 Gm Hfa.aer.ad 2 Puff INH Q4HRS Mirtazapine 45 Mg Tablet 1 Tab PO QHS Glipizide 5 Mg Tablet 1 Tab PO BID Metformin Hcl 1,000 Mg Tablet 1,000 Mg PO BIDWMEALS Lantus (Insulin Glargine,Hum.rec.anlog) 100 Unit/1 Ml Vial 50 Unit SQ HS NITROGLYCERIN SubLingual (Nitroglycerin) 0.4 Mg Tab.subl 0.4 Mg SL PRN Q5MIN PRN Fluoxetine Hcl 20 Mg Capsule 3 Cap PO DAILY Novolin R (Insulin Regular, Human) 100 Unit/1 Ml Vial 100 Unit IJ QIDACHS Vitamin D3 (Cholecalciferol (Vitamin D3)) 1,000 Unit Tablet 1 Tab PO TID Vitamin B-12 (Cyanocobalamin (Vitamin B-12)) 1,000 Mcg Tablet 1 Tab PO DAILY Gemfibrozil 600 Mg Tablet 0.5 Tab PO BID Pepcid (Famotidine) 20 Mg Tablet 10 Mg PO BID Cardizem Cd (Diltiazem Hcl) 240 Mg Cap.er.24h 1 Cap PO DAILY Robaxin (Methocarbamol) 500 Mg Tablet 1 Tab PO BID PRN Niaspan (Niacin) 500 Mg Tab.er.24h 1 Tab PO QHS Gabapentin 600 Mg Tablet 300 Mg PO QID Symbicort 80-4.5 Mcg Inhaler (Budesonide/Formoterol Fumarate) 10.2 Gm Hfa.aer.ad 2 Puff IH BID Finasteride 5 Mg Tablet 1 Tab PO DAILY Levothyroxine Sodium 50 Mcg Tablet 1 Tab PO DAILY Tamsulosin Hcl 0.4 Mg Cap.er.24h 0.4 Mg PO BID Spiriva (Tiotropium Sandwich) 18 Mcg Cap.w.dev 2 Inh IH DAILY Hydrocodone-Apap 7.5-325 (Hydrocodone Bit/Acetaminophen) 1 Each Tablet 1 Tab PO Q4HRS PRN Metoprolol Tartrate 25 Mg Tablet 1 Tab PO BID Vitals/I & O Vital Sign - Last 24 Hours 09/19/18 09/19/18 09/19/18 09/19/18 12:00 12:05 12:57 12:58 Temp 99.0 99.0 Pulse 97 97 97 Resp 20 B/P (MAP) 173/94 (120) 173/94 173/94 Pulse Ox 93 95 O2 Delivery Room Air Room Air 09/19/18 09/19/18 09/19/18 09/19/18 16:05 17:47 17:48 19:05 Temp 99.1 98.4 99.1 98.4 Pulse 90 90 90 84 Resp 20 20 B/P (MAP) 130/64 (86) 130/64 130/64 154/93 (113) Pulse Ox 93 92 O2 Delivery Room Air Room Air 09/19/18 09/19/18 09/19/18 09/19/18 19:51 21:25 23:05 23:13 Temp 98.6 98.6 Pulse 98 98 Resp 20 B/P (MAP) 160/105 (123) 160/105 Pulse Ox 97 O2 Delivery Room Air Room Air Room Air 09/19/18 09/20/18 09/20/18 09/20/18 23:15 06:13 06:16 06:16 Temp 97.5 97.5 Pulse 98 79 79 79 Resp 20 B/P (MAP) 160/105 129/80 (96) 129/80 129/80 Pulse Ox 90 O2 Delivery Nasal Cannula O2 Flow Rate 2.0 09/20/18 09/20/18 09/20/18 07:00 07:17 08:00 Temp 98.6 98.6 Pulse 77 Resp 24 B/P (MAP) 114/84 (94) Pulse Ox 96 96 O2 Delivery Nasal Cannula Nasal Cannula Nasal Cannula O2 Flow Rate 2.0 2.0 2.0 Intake and Output 09/19/18 09/19/18 09/20/18 15:01 23:01 07:01 Intake Total 0 ml 0 ml 0 ml Output Total 1750 ml Balance 0 ml -1750 ml 0 ml LESLEY PALM MD Sep 20, 2018 10:24
--- NOTE | 2018-09-20 11:52 | PDOC ---
Infectious Disease Note Subjective Subjective awake, says is feeling better, off bipap,,though still confused ROS ROS no n/v/d/fever Vital Sign Vital Signs Vital Signs Date Time Temp Pulse Resp B/P (MAP) Pulse Ox O2 Delivery O2 Flow Rate FiO2 09/20/18 11:04 Nasal Cannula 2.0 09/20/18 07:17 96 09/20/18 07:00 98.6 77 24 114/84 (94) 98.6 Physical Exam PHYSICAL EXAM GENERAL: Resting quietly HEENT: Pupils are equal and reactive. Normal conjunctivae, Oral cavity pink, dry NECK: Supple LUNGS: Decreased in the bases. HEART: S1, S2 ABDOMEN: Obese, soft, no grimace or guarding to palpation : Mary EXTREMITIES: Trace edema. SKIN: Warm to touch without generalized signs of rash. NEUROLOGIC: Arouse to voice, confused recognizes his by name, Labs Lab Laboratory Tests Test 09/19/18 17:25 09/19/18 20:34 09/20/18 06:24 09/20/18 07:14 Glucose (Fingerstick) 137 mg/dL (70-99) 124 mg/dL (70-99) 119 mg/dL (70-99) 116 mg/dL (70-99) Micro BC coag neg staph Objective Assessment Fever- better - procalcitonin and Sed rate normal Bacteremia ? sepsis / POA - GPC - ID pending - ECHO 09/12 very limited,, likely contaminant Encephalopathy - on Ativan - BP improving h/o ETOH and hydrocodone PCN allergy - has had amox H/o SVT Acute Resp failure - ? CAP vs AECOPD - on Bipap - on steroids HTN DO - hydrocodone Hematuria H/o Compression fractures h/o ETOH abuse Plan Plan of Care off antibiotics d/w Monitor labs Supportive care D/w MIRNA MADISON MD Sep 20, 2018 11:52
[2018-09-20] MEDS ORDERED: chlordiazePOXIDE HCL 25 MG CAPSULE PO PRN (12:45)
--- NOTE | 2018-09-20 12:47 | PDOC ---
PROGRESS NOTES Chief Complaint Chief Complaint Alcohol withdrawal Rhabdomyolysis- acute kidney injury secondary to above Hypercapnic/hypoxic respiratory failure in a super morbidly obese on NIPPV SABRINA, need CPAP at night Possible pickwickian syndrome CAP/atelectasis on chest x-ray History of CAD, CABG COPD flare History of sepsis/UTI History of IBS, alternating bowel movements History of alcoholism AK I on CK D/ VMN Diabetes Acute on chronic back pain-took 15 [place] in before the hospital stay Accel hypertension History of Present Illness History of Present Illness Admitted with rhabdo and respiratory failure combined hypoxic/hypercapneic on BIPAP Patient t/o ICU 09/19/18 OFF bIPAP ETOHic Her today, but doesn't think so I remember him on admission to the ICU He is able to converse with me short-term, but then drowsy intermittently [employer] has yet to eval if maintains wakefulness Has yet to work with physical therapy Neurology note reviewed, EEG thoughts now possibly canceled as improving mentally Plan: Continue supportive care Ativan when necessary and Haldol when necessary - use sparingly Was on Precedex in the ICU DC scheduled Librium to only when necessary SW SNU vs shirin psych screen pending course PT./OT when able FAll risk NPO for now, IV synthroid IV pPI etc until [employer] eval dw at bedside Vitals Vitals Vital Signs Date Time Temp Pulse Resp B/P (MAP) Pulse Ox O2 Delivery O2 Flow Rate FiO2 09/20/18 11:04 Nasal Cannula 2.0 09/20/18 07:17 96 09/20/18 07:00 98.6 77 24 114/84 (94) 98.6 Physical Exam Physical Exam GENERAL: Resting quietly HEENT: Pupils are equal and reactive. Normal conjunctivae, Oral cavity pink, dry NECK: Supple LUNGS: Decreased in the bases. HEART: S1, S2 ABDOMEN: Obese, soft, no grimace or guarding to palpation : Mary EXTREMITIES: Trace edema. SKIN: Warm to touch without generalized signs of rash. NEUROLOGIC: Arouse to voice, confused recognizes his by name, General: Alert, mild distress, Other (confused) Heart: Regular rate, Normal S1, Normal S2, Other (distant heart tones. ) Lungs: Crackles Abdomen: Soft, Other (obese) Extremities: No edema, Normal pulses Skin: No significant lesion Labs LABS Laboratory Tests Test 09/19/18 17:25 09/19/18 20:34 09/20/18 06:24 09/20/18 07:14 Glucose (Fingerstick) 137 mg/dL (70-99) 124 mg/dL (70-99) 119 mg/dL (70-99) 116 mg/dL (70-99) Review of Systems Review of Systems Drowsy, hence limited ROS Assessment and Plan Assessmemt and Plan Problems Medical Problems: (1) Acute kidney injury Status: Acute (2) Alcohol withdrawal Status: Acute (3) Pneumonia Status: Acute (4) Rhabdomyolysis Status: Acute Comment Review of Relevant I have reviewed the following items barby (where applicable) has been applied. Labs Laboratory Tests Test 09/18/18 12:52 09/18/18 16:43 09/19/18 01:15 09/19/18 06:42 Glucose (Fingerstick) 189 mg/dL (70-99) 155 mg/dL (70-99) 112 mg/dL (70-99) 124 mg/dL (70-99) Test 09/19/18 07:14 09/19/18 11:19 09/19/18 17:25 09/19/18 20:34 Glucose (Fingerstick) 117 mg/dL (70-99) 181 mg/dL (70-99) 137 mg/dL (70-99) 124 mg/dL (70-99) Test 09/20/18 06:24 09/20/18 07:14 Glucose (Fingerstick) 119 mg/dL (70-99) 116 mg/dL (70-99) Laboratory Tests Test 09/19/18 17:25 09/19/18 20:34 09/20/18 06:24 09/20/18 07:14 Glucose (Fingerstick) 137 mg/dL (70-99) 124 mg/dL (70-99) 119 mg/dL (70-99) 116 mg/dL (70-99) Microbiology 09/09/18 Blood Culture - Final, Complete NO GROWTH AFTER 5 DAYS Medications Current Medications Thiamine Mononitrate (Vitamin B-1) 100 mg 1X STAT PO Last administered on at 14:50; Start 09/09/18 at 14:38; Stop 09/09/18 at 14:41; Status DC Folic Acid (Folic Acid) 1 mg 1X STAT PO Last administered on 09/09/18at 14:50 ; Start 09/09/18 at 14:38; Stop 09/09/18 at 14:41; Status DC Sodium Chloride 1,000 ml @ 1,000 mls/hr 1X ONCE IV Last administered on 09/09at 14:50; Start 09/09/18 at 15:00; Stop 09/09/18 at 15:59; Status DC Labetalol HCl (Normodyne Iv Push) 20 mg 1X ONCE IVP Last administered on 09/09at 16:53; Start 09/09/18 at 17:00; Stop 09/09/18 at 17:01; Status DC Chlordiazepoxide (Librium) 25 mg PRN Q6HRS PRN PO ANXIETY / AGITATION Last administered on 09/09/18at 22:35; Start 09/09/18 at 17:00; Stop 09/10/18 at 10 :35; Status DC Acetaminophen (Tylenol) 500 mg PRN Q6HRS PRN PO MILD PAIN / TEMP; Start at 17:00 Morphine Sulfate (Morphine Sulfate) 2 mg PRN Q2HR PRN IV MODERATE TO SEVERE PAIN Last administered on 09/12/18at 11:14; Start 09/09/18 at 17:00; Stop at 11:45; Status DC Sodium Chloride 1,000 ml @ 100 mls/hr Q10H IV Last administered on 09/09/18at 19:30; Start 09/09/18 at 18:00; Stop 09/10/18 at 10:35; Status DC Multivitamins (Thera M Plus) 1 tab DAILY PO ; Start 09/10/18 at 09:00; Stop at 13:13; Status DC Thiamine Mononitrate (Vitamin B-1) 100 mg DAILY PO ; Start 09/10/18 at 09:00; Stop 09/11/18 at 13:13; Status DC Folic Acid (Folic Acid) 1 mg DAILY PO ; Start 09/10/18 at 09:00; Stop at 13:13; Status DC Labetalol HCl (Normodyne Iv Push) 20 mg PRN Q2HR PRN IVP HYPERTENSION, 2ND CHOICE Last administered on 09/17/18at 14:47; Start 09/09/18 at 17:00 Nicotine (Nicoderm Cq 21mg) 1 patch PRN DAILY PRN TD SMOKING CESSATION; Start 09/09/18 at 17:15; Stop 09/11/18 at 13:13; Status DC Oxycodone/ Acetaminophen (Percocet 5/325) 1 tab PRN Q4HRS PRN PO SEVERE PAIN; Start 09/09/18 at 17:15; Stop 09/15/18 at 12:06; Status DC Diphenhydramine HCl (Benadryl) 25 mg PRN QHS PRN PO INSOMNIA; Start 09/09/18 at 17:15 Aspirin (Children'S Aspirin) 81 mg DAILYWBKFT PO ; Start 09/10/18 at 08:00; Stop 09/12/18 at 09:56; Status DC Atorvastatin Calcium (Lipitor) 40 mg QHS PO Last administered on 09/09/18at 21: 11; Start 09/09/18 at 21:00; Stop 09/12/18 at 09:56; Status DC Atorvastatin Calcium (Lipitor) 40 mg QHS PO ; Start 09/09/18 at 21:00; Status UNV Duloxetine HCl (Cymbalta) 30 mg BID PO Last administered on 09/09/18at 21:12; Start 09/09/18 at 21:00; Stop 09/11/18 at 13:13; Status DC Ferrous Sulfate (Feosol) 325 mg DAILYAC PO ; Start 09/10/18 at 07:30; Stop at 13:13; Status DC Finasteride (Proscar) 5 mg DAILY PO ; Start 09/10/18 at 09:00; Stop 09/12/18 at 09:56; Status DC Lorazepam (Ativan) 0.5 mg PRN DAILY PRN PO ANXIETY / AGITATION; Start at 17:15; Stop 09/10/18 at 10:35; Status DC Metoprolol Tartrate (Lopressor) 25 mg BID PO Last administered on 09/09/18at 21 :12; Start 09/09/18 at 21:00; Stop 09/11/18 at 13:19; Status DC Pantoprazole Sodium (Protonix) 40 mg DAILYAC PO ; Start 09/10/18 at 07:30; Stop 09/11/18 at 12:20; Status DC Tamsulosin HCl (Flomax) 0.4 mg DAILY PO ; Start 09/10/18 at 09:00; Stop at 09:56; Status DC Tramadol HCl (Ultram) 50 mg PRN Q6HRS PRN PO MODERATE PAIN; Start 09/09/18 at 17:15; Stop 09/15/18 at 12:06; Status DC Budesonide (Pulmicort) 0.5 mg RTBID NEB Last administered on 09/12/18at 07:47; Start 09/09/18 at 20:00; Stop 09/12/18 at 11:45; Status DC Diltiazem HCl (Cardizem 24hr Cd) 120 mg DAILY PO ; Start 09/10/18 at 09:00; Stop 09/11/18 at 13:13; Status DC Insulin Glargine (Lantus) 10 units QHS SQ Last administered on 09/09/18at 21:49 ; Start 09/09/18 at 21:00; Stop 09/10/18 at 10:35; Status DC Levothyroxine Sodium (Synthroid) 50 mcg DAILY06 PO ; Start 09/10/18 at 06:00; Stop 09/12/18 at 09:56; Status DC Lidocaine (Lidoderm) 1 patch DAILY TD Last administered on 09/20/18at 08:15; Start 09/10/18 at 09:00 Lisinopril (Prinivil) 2.5 mg DAILY PO ; Start 09/10/18 at 09:00; Stop at 13:13; Status DC Non-Formulary Medication (Tiotropium [place] (Spiriva)) 2 inh DAILY IH ; Start 09/10/18 at 09:00; Status UNV Warfarin Sodium (Coumadin) 7.5 mg DAILY16 PO ; Start 09/09/18 at 18:00; Stop 09/10/18 at 16:34; Status DC Insulin Human Lispro (HumaLOG) 0-9 UNITS TIDWMEALS SQ ; Start 09/10/18 at 08:00 ; Stop 09/11/18 at 13:13; Status DC Dextrose (Dextrose 50%-Water Syringe) 12.5 gm PRN Q15MIN PRN IV SEE COMMENTS; Start 09/09/18 at 17:15; Stop 09/12/18 at 08:17; Status DC Miscellaneous (Lidoderm Patch Removal) 1 ea QHS MC Last administered on at 20:10; Start 09/09/18 at 21:00 Albuterol/ Ipratropium (Duoneb) 3 ml RTQID NEB Last administered on 09/20/18at 11:04; Start 09/09/18 at 20:00 Warfarin Sodium (Coumadin Per Physician) 1 each PRN DAILY PRN MC SEE COMMENTS Last administered on 09/11/18at 11:21; Start 09/09/18 at 17:30; Stop 09/11/18 at 13:13; Status DC Sodium Chloride 1,000 ml @ 75 mls/hr [id number] IV ; Start 09/09/18 at 17:30; Stop 09/10/18 at 10:35; Status DC Lorazepam (Ativan) 2 mg 1X ONCE IV Last administered on 09/09/18at 17:30; Start 09/09/18 at 17:30; Stop 09/09/18 at 17:31; Status DC Clonidine HCl (Catapres) 0.1 mg PRN Q1HR PRN PO SBP > 180 or DBP > 100, MRX3; Start 09/09/18 at 17:30 Lorazepam (Ativan) 2 mg PRN Q15MIN PRN IV CIWA 8-14 Last administered on at 20:38; Start 09/09/18 at 17:30; Stop 09/15/18 at 12:06; Status DC Albuterol/ Ipratropium (Duoneb) 3 ml 1X ONCE NEB ; Start 09/09/18 at 17:30; Stop 09/09/18 at 17:31; Status DC Levofloxacin/ Dextrose 150 ml @ 100 mls/hr 1X ONCE IV Last administered on at 21:03; Start 09/09/18 at 17:30; Stop 09/09/18 at 18:59; Status DC Albuterol/ Ipratropium (Duoneb) 3 ml RTQID NEB ; Start 09/09/18 at 20:00; Status UNV Guaifenesin (Robitussin Dm) 10 ml PRN Q6HRS PRN PO COUGH; Start 09/09/18 at 19 :00 Levofloxacin/ Dextrose (Levaquin Per Pharmacy) 1 each PRN DAILY PRN MC SEE COMMENTS; Start 09/09/18 at 19:00; Stop 09/11/18 at 09:24; Status DC Heparin Sodium (Porcine) (Heparin Sodium) 5,000 unit Q8HRS SQ Last administered on 09/11/18at 05:48; Start 09/09/18 at 22:00; Stop 09/12/18 at 11 :01; Status DC Levofloxacin/ Dextrose 50 ml @ 50 mls/hr Q24H IV ; Start 09/10/18 at 20:00; Stop 09/10/18 at 20:00; Status DC Haloperidol Lactate (Haldol Inj) 5 mg PRN Q6HRS PRN IVP AGITATION Last administered on 09/15/18at 23:00; Start 09/10/18 at 01:15; Stop 09/19/18 at 15 :15; Status DC Famotidine (Pepcid Vial) 20 mg QHS IVP Last administered on 09/12/18at 20:47; Start 09/10/18 at 21:00; Stop 09/13/18 at 08:50; Status DC Methylprednisolone Sodium Succinate (SOLU-Medrol 40MG VIAL) 40 mg Q12HR IV Last administered on 09/14/18at 08:24; Start 09/10/18 at 09:00; Stop 09/14/18 at 12:49; Status DC Chlordiazepoxide (Librium) 50 mg PRN Q6HRS PRN PO ANXIETY/AGITATION, 2ND CHOICE ; Start 09/10/18 at 10:45; Stop 09/17/18 at 14:33; Status DC Lorazepam (Ativan) 1 mg PRN DAILY PRN PO ANXIETY / AGITATION, 1ST CHOIC; Start 09/10/18 at 10:45; Stop 09/15/18 at 12:06; Status DC Dexmedetomidine HCl 200 mcg/ Sodium Chloride 50 ml @ 0 mls/hr CONT PRN IV PER PROTOCOL Last administered on 09/15/18at 09:03; Start 09/10/18 at 13:30; Stop 09/15/18 at 12:06; Status DC Sodium Chloride 500 ml @ 500 mls/hr 1X PRN PRN IV SEE COMMENTS; Start at 13:30 Atropine Sulfate (ATROPINE 0.5mg SYRINGE) 0.5 mg PRN Q5MIN PRN IV SEE COMMENTS ; Start 09/10/18 at 13:30; Stop 09/12/18 at 13:15; Status DC Levofloxacin/ Dextrose 100 ml @ 100 mls/hr Q24H IV Last administered on at 20:48; Start 09/10/18 at 20:00; Stop 09/11/18 at 09:36; Status DC Enalaprilat (Vasotec Inj) 1.25 mg PRN Q4HRS PRN IVP HYPERTENSION, 1ST CHOICE Last administered on 09/16/18at 20:51; Start 09/11/18 at 02:45 Vancomycin HCl (Vanco Per Pharmacy) 1 each PRN DAILY PRN MC SEE COMMENTS Last administered on 09/14/18at 12:16; Start 09/11/18 at 09:15; Stop 09/15/18 at 10 :49; Status DC Vancomycin HCl 2 gm/Sodium Chloride 500 ml @ 250 mls/hr 1X ONCE IV Last administered on 09/11/18at 10:40; Start 09/11/18 at 09:30; Stop 09/11/18 at 11 :29; Status DC Doxycycline Hyclate (Vibra-Tab) 100 mg BID PO ; Start 09/11/18 at 10:00; Stop 09/11/18 at 15:16; Status DC Cefepime HCl (Maxipime) 1 gm Q8H IVP Last administered on 09/19/18at 01:35; Start 09/11/18 at 10:00; Stop 09/19/18 at 08:14; Status DC Vancomycin HCl 1.75 gm/Sodium Chloride 500 ml @ 250 mls/hr Q12H IV Last administered on 09/12/18at 22:58; Start 09/11/18 at 23:00; Stop 09/12/18 at 23 :59; Status DC Vancomycin HCl (Vancomycin Trough Level) 1 each 1X ONCE MC Last administered on 09/12/18at 22:26; Start 09/12/18 at 22:30; Stop 09/12/18 at 22:31; Status DC Pantoprazole Sodium (PROTONIX VIAL for IV PUSH) 40 mg DAILYAC IVP Last administered on 09/20/18at 08:15; Start 09/11/18 at 12:30 Multivitamins 10 ml/Thiamine HCl 100 mg/Folic Acid 1 mg/Sodium Chloride 1,011.2 ml @ 0 mls/hr DAILY IV Last administered on 09/20/18at 08:14; Start 09/11/18 at 14:00 Insulin Human Lispro (HumaLOG) 0-7 UNITS TIDWMEALS SQ ; Start 09/11/18 at 17:00 ; Stop 09/11/18 at 17:00; Status DC Dextrose (Dextrose 50%-Water Syringe) 12.5 gm PRN Q15MIN PRN IV SEE COMMENTS; Start 09/11/18 at 13:00 Insulin Human Lispro (HumaLOG) 0-7 UNITS Q6HRS SQ Last administered on at 05:41; Start 09/11/18 at 18:00 Levothyroxine Sodium 0.025 mcg/ Sodium Chloride 5 ml @ 0 mls/hr DAILY IVP ; Start 09/11/18 at 13:30; Stop 09/11/18 at 13:52; Status DC Magnesium Sulfate 50 ml @ 25 mls/hr 1X ONCE IV Last administered on at 15:40; Start 09/11/18 at 13:30; Stop 09/11/18 at 15:29; Status DC Levothyroxine Sodium 25 mcg/ Sodium Chloride 5 ml @ 0 mls/hr DAILY IVP Last administered on 09/20/18at 08:16; Start 09/11/18 at 13:52 Levothyroxine Sodium 25 mcg/ Sodium Chloride 5 ml @ 0 mls/hr 1X ONCE IVP Last administered on 09/11/18at 14:45; Start 09/11/18 at 14:45; Stop 09/11/18 at 14 :46; Status DC Doxycycline Hyclate 100 mg/ Dextrose 100 ml @ 50 mls/hr Q12HR IV Last administered on 09/19/18at 07:55; Start 09/11/18 at 16:00; Stop 09/19/18 at 08 :14; Status DC Magnesium Sulfate 50 ml @ 25 mls/hr 1X ONCE IV Last administered on at 12:56; Start 09/12/18 at 11:30; Stop 09/12/18 at 13:29; Status DC Amino Acids/ Glycerin/ Electrolytes 1,000 ml @ 50 mls/hr Q20H IV Last administered on 09/19/18at 22:11; Start 09/12/18 at 11:30 Haloperidol Lactate (Haldol Inj) 10 mg Q8HRS IVP Last administered on at 06:02; Start 09/12/18 at 14:00; Stop 09/16/18 at 13:14; Status DC Dexmedetomidine HCl 200 mcg/ Sodium Chloride 50 ml @ 0 mls/hr CONT PRN IV PER PROTOCOL; Start 09/12/18 at 13:15; Stop 09/12/18 at 14:04; Status DC Sodium Chloride 500 ml @ 500 mls/hr 1X PRN PRN IV SEE COMMENTS; Start at 13:15 Atropine Sulfate (ATROPINE 0.5mg SYRINGE) 0.5 mg PRN Q5MIN PRN IV SEE COMMENTS ; Start 09/12/18 at 13:15 Morphine Sulfate (Morphine Sulfate) 2 mg PRN Q2HR PRN IV PAIN Last administered on 09/14/18at 05:10; Start 09/12/18 at 13:15; Stop 09/14/18 at 12 :57; Status DC Metoprolol Tartrate (Lopressor) 25 mg BID PO ; Start 09/12/18 at 17:00; Stop 09/12/18 at 17:00; Status DC Metoprolol Tartrate (Lopressor Vial) 5 mg Q6HRS IVP Last administered on at 06:16; Start 09/12/18 at 18:00 Vancomycin HCl 2 gm/Sodium Chloride 500 ml @ 250 mls/hr Q12H IV Last administered on 09/14/18at 23:26; Start 09/13/18 at 11:00; Stop 09/15/18 at 10 :49; Status DC Vancomycin HCl (Vancomycin Trough Level) 1 each 1X ONCE MC Last administered on 09/14/18at 10:30; Start 09/14/18 at 10:30; Stop 09/14/18 at 10:31; Status DC Nitroglycerin (Nitro-Bid Oint) 1 inch Q6HRS TP Last administered on 09/20/18at 06:16; Start 09/14/18 at 08:30 Aspirin (Aspirin) 300 mg DAILY GA Last administered on 09/20/18at 08:15; Start 09/14/18 at 11:00 Methylprednisolone Sodium Succinate (SOLU-Medrol 40MG VIAL) 40 mg DAILY IV Last administered on 09/20/18at 08:15; Start 09/15/18 at 09:00 Morphine Sulfate (Morphine Sulfate) 2 mg PRN Q2HR PRN IV PAIN Last administered on 09/17/18at 02:01; Start 09/14/18 at 13:00 Lorazepam (Ativan) 2 mg PRN Q4HRS PRN IV ANXIETY / AGITATION Last administered on 09/15/18at 23:00; Start 09/15/18 at 22:45; Stop 09/16/18 at 13:14; Status DC Haloperidol Lactate (Haldol Inj) 5 mg Q8HRS IVP Last administered on at 06:11; Start 09/16/18 at 14:00; Stop 09/17/18 at 09:42; Status DC Chlordiazepoxide (Librium) 50 mg Q6H PO Last administered on 09/18/18at 08:26; Start 09/17/18 at 15:00; Stop 09/18/18 at 12:41; Status DC Chlordiazepoxide (Librium) 50 mg PRN Q1HR PRN PO For CIWA 8-14; Start at 14:30 Chlordiazepoxide (Librium) 100 mg PRN Q1HR PRN PO For CIWA 15 or greater; Start 09/17/18 at 14:30 Haloperidol Lactate (Haldol Inj) 5 mg PRN Q4HRS PRN IVP Hallucinatns,Confusn, Delirium; Start 09/17/18 at 14:30 Nitroglycerin/ Dextrose 250 ml @ 1.5 mls/hr CONT PRN IV SEE I/O RECORD; Start 09/17/18 at 15:30; Stop 09/19/18 at 10:52; Status DC Lorazepam (Ativan) 1 mg PRN Q4HRS PRN IV ANXIETY / AGITATION; Start 09/17/18 at 15:45 Lorazepam (Ativan) 2 mg PRN Q4HRS PRN IV ANXIETY / AGITATION Last administered on 09/20/18at 08:14; Start 09/17/18 at 16:00 Chlordiazepoxide (Librium) 25 mg Q6H PO Last administered on 09/20/18at 08:10; Start 09/18/18 at 15:00 Enoxaparin Sodium (Lovenox 40mg Syringe) 40 mg Q24H SQ Last administered on at 12:59; Start 09/19/18 at 12:00 Active Scripts Active Pantoprazole Sodium 40 Mg Tablet.dr 40 Mg PO DAILYAC Lidoderm (Lidocaine) 700 Mg Adh..patch 1 Patch TD DAILY 12hours on, 12 hours off Lisinopril 2.5 Mg Tablet 2.5 Mg PO DAILY Feosol (Ferrous Sulfate) 325 Mg Tablet 325 Mg PO DAILYAC Children's Aspirin (Aspirin) 81 Mg Tab.chew 81 Mg PO DAILYWBKFT Reported Ventolin Hfa Inhaler (Albuterol Sulfate) 18 Gm Hfa.aer.ad 2 Puff INH Q4HRS Mirtazapine 45 Mg Tablet 1 Tab PO QHS Glipizide 5 Mg Tablet 1 Tab PO BID Metformin Hcl 1,000 Mg Tablet 1,000 Mg PO BIDWMEALS Lantus (Insulin Glargine,Hum.rec.anlog) 100 Unit/1 Ml Vial 50 Unit SQ HS NITROGLYCERIN SubLingual (Nitroglycerin) 0.4 Mg Tab.subl 0.4 Mg SL PRN Q5MIN PRN Fluoxetine Hcl 20 Mg Capsule 3 Cap PO DAILY Novolin R (Insulin Regular, Human) 100 Unit/1 Ml Vial 100 Unit IJ QIDACHS Vitamin D3 (Cholecalciferol (Vitamin D3)) 1,000 Unit Tablet 1 Tab PO TID Vitamin B-12 (Cyanocobalamin (Vitamin B-12)) 1,000 Mcg Tablet 1 Tab PO DAILY Gemfibrozil 600 Mg Tablet 0.5 Tab PO BID Pepcid (Famotidine) 20 Mg Tablet 10 Mg PO BID Cardizem Cd (Diltiazem Hcl) 240 Mg Cap.er.24h 1 Cap PO DAILY Robaxin (Methocarbamol) 500 Mg Tablet 1 Tab PO BID PRN Niaspan (Niacin) 500 Mg Tab.er.24h 1 Tab PO QHS Gabapentin 600 Mg Tablet 300 Mg PO QID Symbicort 80-4.5 Mcg Inhaler (Budesonide/Formoterol Fumarate) 10.2 Gm Hfa.aer.ad 2 Puff IH BID Finasteride 5 Mg Tablet 1 Tab PO DAILY Levothyroxine Sodium 50 Mcg Tablet 1 Tab PO DAILY Tamsulosin Hcl 0.4 Mg Cap.er.24h 0.4 Mg PO BID Spiriva (Tiotropium [place]) 18 Mcg Cap.w.dev 2 Inh IH DAILY Hydrocodone-Apap 7.5-325 (Hydrocodone Bit/Acetaminophen) 1 Each Tablet 1 Tab PO Q4HRS PRN Metoprolol Tartrate 25 Mg Tablet 1 Tab PO BID Vitals/I & O Vital Sign - Last 24 Hours 09/19/18 09/19/18 09/19/18 09/19/18 12:57 12:58 16:05 17:47 Temp 99.1 99.1 Pulse 97 97 90 90 Resp 20 B/P (MAP) 173/94 173/94 130/64 (86) 130/64 Pulse Ox 93 O2 Delivery Room Air 09/19/18 09/19/18 09/19/18 09/19/18 17:48 19:05 19:51 21:25 Temp 98.4 98.4 Pulse 90 84 Resp 20 B/P (MAP) 130/64 154/93 (113) Pulse Ox 92 O2 Delivery Room Air Room Air Room Air 09/19/18 09/19/18 09/19/18 09/20/18 23:05 23:13 23:15 06:13 Temp 98.6 97.5 98.6 97.5 Pulse 98 98 98 79 Resp 20 20 B/P (MAP) 160/105 (123) 160/105 160/105 129/80 (96) Pulse Ox 97 90 O2 Delivery Room Air Nasal Cannula O2 Flow Rate 2.0 09/20/18 09/20/18 09/20/18 09/20/18 06:16 06:16 07:00 07:17 Temp 98.6 98.6 Pulse 79 79 77 Resp 24 B/P (MAP) 129/80 129/80 114/84 (94) Pulse Ox 96 96 O2 Delivery Nasal Cannula Nasal Cannula O2 Flow Rate 2.0 2.0 09/20/18 09/20/18 09/20/18 08:00 08:00 11:04 O2 Delivery Nasal Cannula Nasal Cannula O2 Flow Rate 2.0 2.0 2.0 Intake and Output 09/19/18 09/19/18 09/20/18 15:01 23:01 07:01 Intake Total 0 ml 0 ml 0 ml Output Total 1750 ml Balance 0 ml -1750 ml 0 ml WILLEM CORRAL MD Sep 20, 2018 12:47
[2018-09-20] MEDS: ENOXAPARIN 40 MG/0.4 ML SYRINGE. SQ SCH (14:49)
[2018-09-20 15:00] VITALS: BP 145/99
--- NOTE | 2018-09-20 16:01 | EEG ---
DATE OF SERVICE: 09/20/2018 EEG NUMBER: [id number]. OBJECTIVE: The patient is a 67-year-old male with altered mental status described to alcoholism. DESCRIPTION: This is a digital study. Electrodes are placed according to the international 10-20 system. Bipolar and referential montages are available. Activation procedures typically include hyperventilation and intermittent photic stimulation. INTERPRETATION: The waking background consists of 8-9 Hz, 20-50 microvolt activity, symmetrically distributed over parietooccipital regions and reactive to eye opening. Stage 1 sleep is achieved with normal electroencephalogram patterns. Hyperventilation is not performed due to the patient's lack of cooperation. Intermittent photic stimulation is noncontributory. IMPRESSION: This electroencephalogram with the patient in awake and asleep is within normal limits. There is no focal, paroxysmal, or epileptiform activity. Thank you for letting us help with the patient's care. LESLEY PALM MD DR: MICHELLE/christiano JOB#: [id number] / [id number] WILLEM Workman MD
[2018-09-20] MEDS: AMINO AC 3%/ELECTROLYTE/GLYCER 1,000 ML IV SCH (18:03)
[2018-09-20] MEDS: PATCH REMOVAL. MC SCH (21:00)
[2018-09-20] MEDS: HALOPERIDOL LACTATE 5 MG/ML VIAL. IVP PRN (23:04)
[2018-09-20 23:58] VITALS: BP 173/93
[2018-09-21 03:52] VITALS: BP 149/82
[2018-09-21] MEDS: HALOPERIDOL LACTATE 5 MG/ML VIAL. IVP PRN (05:02)
[2018-09-21] MEDS: INSULIN LISPRO 300 UNITS/3 ML INSULN.PEN. SQ SCH ×3 (06:00→18:00)
[2018-09-21] MEDS: METOPROLOL TARTRATE 5 MG/5 ML VIAL. IVP SCH ×3 (06:13→18:54)
[2018-09-21] MEDS: NITROGLYCERIN OINT 1 GM PACKET. TP SCH ×3 (06:14→18:54)
[2018-09-21 06:55] VITALS: BP 149/76
[2018-09-21] MEDS: IPRATRPIUM/ALBUTEROL 0.5/2.5MG 3 ML NEBU. NEB SCH ×4 (08:06→21:13)
[2018-09-21] MEDS: PANTOPRAZOLE IV PUSH 40 MG VIAL. IVP SCH (08:30)
[2018-09-21] MEDS: LEVOTHYROXINE SODIUM IVP SCH (08:30)
[2018-09-21] MEDS: LIDOCAINE (700MG/PATCH) PATCH. TD SCH (08:30)
[2018-09-21] MEDS: NORMAL SALINE IVP SCH (08:30)
[2018-09-21] MEDS: ASPIRIN 300 MG SUPP.RECT PR SCH (09:00)
[2018-09-21] MEDS: methylPREDNISolone SOD SUCC PF 40 MG/ML VIAL. IV SCH (09:00)
--- NOTE | 2018-09-21 09:22 | PDOC ---
PULMONARY PROGRESS NOTES Subjective pt sleepy from medication no resp distress Vitals Vital Signs Date Time Temp Pulse Resp B/P (MAP) Pulse Ox O2 Delivery O2 Flow Rate FiO2 09/21/18 08:07 96 Nasal Cannula 2.0 09/21/18 06:55 97.6 85 20 149/76 (100) 97.6 ROS: No Nausea, No Chest Pain, No Abdominal Pain, No Increase Cough General: Alert Lungs: Crackles Cardiovascular: S1, S2 Abdomen: Soft, Other (OBESE) Extremities: Other (EDEMA) Skin: Warm Labs Laboratory Tests Test 09/19/18 11:19 09/19/18 17:25 09/19/18 20:34 09/20/18 06:24 Glucose (Fingerstick) 181 mg/dL (70-99) 137 mg/dL (70-99) 124 mg/dL (70-99) 119 mg/dL (70-99) Test 09/20/18 07:14 09/20/18 14:43 09/20/18 18:05 09/20/18 23:07 Glucose (Fingerstick) 116 mg/dL (70-99) 175 mg/dL (70-99) 144 mg/dL (70-99) 106 mg/dL (70-99) Test 09/21/18 06:02 Glucose (Fingerstick) 129 mg/dL (70-99) Laboratory Tests Test 09/20/18 14:43 09/20/18 18:05 09/20/18 23:07 09/21/18 06:02 Glucose (Fingerstick) 175 mg/dL (70-99) 144 mg/dL (70-99) 106 mg/dL (70-99) 129 mg/dL (70-99) Medications Active Scripts Medications Dose Route/Sig Max Daily Dose Days Date Category Dose Instructions Ventolin Hfa Inhaler (Albuterol Sulfate) 18 Gm Hfa.aer.ad 2 Puff INH Q4HRS 09/11/18 Reported Mirtazapine 45 Mg Tablet 1 Tab PO QHS 09/11/18 Reported Glipizide 5 Mg Tablet 1 Tab PO BID 09/11/18 Reported Metformin Hcl 1,000 Mg Tablet 1,000 Mg PO BIDWMEALS 09/11/18 Reported Lantus (Insulin Glargine,Hum.rec.anlog) 100 Unit/1 Ml Vial 50 Unit SQ HS 09/11/18 Reported NITROGLYCERIN SubLingual (Nitroglycerin) 0.4 Mg Tab.subl 0.4 Mg SL PRN Q5MIN PRN 09/11/18 Reported Fluoxetine Hcl 20 Mg Capsule 3 Cap PO DAILY 09/11/18 Reported Novolin R (Insulin Regular, Human) 100 Unit/1 Ml Vial 100 Unit IJ QIDACHS 09/11/18 Reported Vitamin D3 (Cholecalciferol (Vitamin D3)) 1,000 Unit Tablet 1 Tab PO TID 09/11/18 Reported Vitamin B-12 (Cyanocobalamin (Vitamin B-12)) 1,000 Mcg Tablet 1 Tab PO DAILY 09/11/18 Reported Gemfibrozil 600 Mg Tablet 0.5 Tab PO BID 09/11/18 Reported Pepcid (Famotidine) 20 Mg Tablet 10 Mg PO BID 09/11/18 Reported Cardizem Cd (Diltiazem Hcl) 240 Mg Cap.er.24h 1 Cap PO DAILY 09/11/18 Reported Robaxin (Methocarbamol) 500 Mg Tablet 1 Tab PO BID PRN 09/11/18 Reported Niaspan (Niacin) 500 Mg Tab.er.24h 1 Tab PO QHS 09/11/18 Reported Gabapentin 600 Mg Tablet 300 Mg PO QID 09/11/18 Reported Pantoprazole Sodium 40 Mg Tablet.dr 40 Mg PO DAILYAC 07/16/16 Rx Lidoderm (Lidocaine) 700 Mg Adh..patch 1 Patch TD DAILY 07/16/16 Rx 12hours on, 12 hours off Lisinopril 2.5 Mg Tablet 2.5 Mg PO DAILY 07/16/16 Rx Feosol (Ferrous Sulfate) 325 Mg Tablet 325 Mg PO DAILYAC 07/16/16 Rx Children's Aspirin (Aspirin) 81 Mg Tab.chew 81 Mg PO DAILYWBKFT 07/16/16 Rx Symbicort 80-4.5 Mcg Inhaler (Budesonide/Formoterol Fumarate) 10.2 Gm Hfa.aer.ad 2 Puff IH BID 07/09/16 Reported Finasteride 5 Mg Tablet 1 Tab PO DAILY 07/09/16 Reported Levothyroxine Sodium 50 Mcg Tablet 1 Tab PO DAILY 07/09/16 Reported Tamsulosin Hcl 0.4 Mg Cap.er.24h 0.4 Mg PO BID 07/09/16 Reported Spiriva (Tiotropium [place]) 18 Mcg Cap.w.dev 2 Inh IH DAILY 07/09/16 Reported Hydrocodone-Apap 7.5-325 (Hydrocodone Bit/Acetaminophen) 1 Each Tablet 1 Tab PO Q4HRS PRN 07/09/16 Reported Metoprolol Tartrate 25 Mg Tablet 1 Tab PO BID 07/09/16 Reported Comments IMPRESSION: Mild patchy opacities in the right lung base may be secondary to subsegmental atelectasis or pneumonia. Findings of COPD. Impression . IMPRESSION: 1. Acute hypoxemic respiratory failure, multifactorial in etiolog 2. Abnormal chest x-ray/PNEUMONIA 3. Acute exacerbation of chronic obstructive pulmonary disease. 4. Acute bronchitis versus pneumonia. 5. METABOLIC/TOXIC Encephalopathy POA 6. Acute kidney injury. 7. Obstructive sleep apnea-hypopnea syndrome. 8. CAD S/P CABG 9. Hypertension. 10. BACTEREMIA/SEPSIS PER ID Impression: Right internal jugular catheter terminates at the expected level of the superior aspect of the superior vena cava. No pneumothorax. Pulmonary vasculature congestion. Plan . SEE ORDERS I THINK HE WAS DOING BETTER WHEN HE WAS OFF LIBRIUM AND GETTING PRN HALDOL WILL CONSULT SPEECH AND PT HOPEFULLY TRANSFER OR D/C SOON WILL CONTINUE PRN BIPAP PRN SEDATION FOR AGITATION SPOKE WITH ARLYN FENTON MD Sep 21, 2018 09:21
[2018-09-21] MEDS: MULTIVIT INFUSN,ADULT 4,VIT K 10 ML, THIAMINE INJ 100 MG, FOLIC ACID INJ 1 MG in IV NOR... IV SCH (09:31)
[2018-09-21 10:30] VITALS: BP 155/86
--- NOTE | 2018-09-21 11:42 | PDOC ---
PROGRESS NOTES Chief Complaint Chief Complaint Alcohol withdrawal Rhabdomyolysis- acute kidney injury secondary to above Hypercapnic/hypoxic respiratory failure in a super morbidly obese on NIPPV SABRINA, need CPAP at night Possible pickwickian syndrome CAP/atelectasis on chest x-ray History of CAD, CABG COPD flare History of sepsis/UTI History of IBS, alternating bowel movements History of alcoholism AK I on CK D/ VMN Diabetes Acute on chronic back pain-took 15 [place] in before the hospital stay Accel hypertension History of Present Illness History of Present Illness Off BiPAP, respiratory issues is stable but mentation is an issue Needed Haldol last night Discussed with pulmonary, okay for Haldol has been getting in the ICU and was doing well with it- but no ativan He seems better when the is at bedside wants everything including SNU or [facility] Patient [facility] Patient has failed MOLDER VACUUM because of mentation issues WIll not qualify shirin psych as per SW Plan: Haldol sparingly INtermittent MOLDER VACUUM eval IVF/AA for now while NPO Target is to DC to [facility] once able to swallow and mental issues resolved. Dw staff, sw, etc\ Vitals Vitals Vital Signs Date Time Temp Pulse Resp B/P (MAP) Pulse Ox O2 Delivery O2 Flow Rate FiO2 09/21/18 10:30 97.8 74 22 155/86 (109) 92 Room Air 97.8 09/21/18 08:07 2.0 Physical Exam Physical Exam GENERAL: Resting quietly HEENT: Pupils are equal and reactive. Normal conjunctivae, Oral cavity pink, dry NECK: Supple LUNGS: Decreased in the bases. HEART: S1, S2 ABDOMEN: Obese, soft, no grimace or guarding to palpation : Mary EXTREMITIES: Trace edema. SKIN: Warm to touch without generalized signs of rash. NEUROLOGIC: [place] to voice, confused recognizes his by name, General: Alert, mild distress, Other (confused) Heart: Regular rate, Normal S1, Normal S2, Other (distant heart tones. ) Lungs: Crackles Abdomen: Soft, Other (obese) Extremities: No edema, Normal pulses Skin: No significant lesion Labs LABS Laboratory Tests Test 09/20/18 14:43 09/20/18 18:05 09/20/18 23:07 09/21/18 06:02 Glucose (Fingerstick) 175 mg/dL (70-99) 144 mg/dL (70-99) 106 mg/dL (70-99) 129 mg/dL (70-99) Review of Systems Review of Systems Limited ROS, off-and-on mentation Assessment and Plan Assessmemt and Plan Problems Medical Problems: (1) Acute kidney injury Status: Acute (2) Alcohol withdrawal Status: Acute (3) Pneumonia Status: Acute (4) Rhabdomyolysis Status: Acute Comment Review of Relevant I have reviewed the following items barby (where applicable) has been applied. Labs Laboratory Tests Test 09/19/18 17:25 09/19/18 20:34 09/20/18 06:24 09/20/18 07:14 Glucose (Fingerstick) 137 mg/dL (70-99) 124 mg/dL (70-99) 119 mg/dL (70-99) 116 mg/dL (70-99) Test 09/20/18 14:43 09/20/18 18:05 09/20/18 23:07 09/21/18 06:02 Glucose (Fingerstick) 175 mg/dL (70-99) 144 mg/dL (70-99) 106 mg/dL (70-99) 129 mg/dL (70-99) Laboratory Tests Test 09/20/18 14:43 09/20/18 18:05 09/20/18 23:07 09/21/18 06:02 Glucose (Fingerstick) 175 mg/dL (70-99) 144 mg/dL (70-99) 106 mg/dL (70-99) 129 mg/dL (70-99) Microbiology 09/09/18 Blood Culture - Final, Complete NO GROWTH AFTER 5 DAYS Medications Current Medications Thiamine Mononitrate (Vitamin B-1) 100 mg 1X STAT PO Last administered on at 14:50; Start 09/09/18 at 14:38; Stop 09/09/18 at 14:41; Status DC Folic Acid (Folic Acid) 1 mg 1X STAT PO Last administered on 09/09/18at 14:50 ; Start 09/09/18 at 14:38; Stop 09/09/18 at 14:41; Status DC Sodium Chloride 1,000 ml @ 1,000 mls/hr 1X ONCE IV Last administered on 09/09at 14:50; Start 09/09/18 at 15:00; Stop 09/09/18 at 15:59; Status DC Labetalol HCl (Normodyne Iv Push) 20 mg 1X ONCE IVP Last administered on 09/09at 16:53; Start 09/09/18 at 17:00; Stop 09/09/18 at 17:01; Status DC Chlordiazepoxide (Librium) 25 mg PRN Q6HRS PRN PO ANXIETY / AGITATION Last administered on 09/09/18at 22:35; Start 09/09/18 at 17:00; Stop 09/10/18 at 10 :35; Status DC Acetaminophen (Tylenol) 500 mg PRN Q6HRS PRN PO MILD PAIN / TEMP; Start at 17:00 Morphine Sulfate (Morphine Sulfate) 2 mg PRN Q2HR PRN IV MODERATE TO SEVERE PAIN Last administered on 09/12/18at 11:14; Start 09/09/18 at 17:00; Stop at 11:45; Status DC Sodium Chloride 1,000 ml @ 100 mls/hr Q10H IV Last administered on 09/09/18at 19:30; Start 09/09/18 at 18:00; Stop 09/10/18 at 10:35; Status DC Multivitamins (Thera M Plus) 1 tab DAILY PO ; Start 09/10/18 at 09:00; Stop at 13:13; Status DC Thiamine Mononitrate (Vitamin B-1) 100 mg DAILY PO ; Start 09/10/18 at 09:00; Stop 09/11/18 at 13:13; Status DC Folic Acid (Folic Acid) 1 mg DAILY PO ; Start 09/10/18 at 09:00; Stop at 13:13; Status DC Labetalol HCl (Normodyne Iv Push) 20 mg PRN Q2HR PRN IVP HYPERTENSION, 2ND CHOICE Last administered on 09/17/18at 14:47; Start 09/09/18 at 17:00 Nicotine (Nicoderm Cq 21mg) 1 patch PRN DAILY PRN TD SMOKING CESSATION; Start 09/09/18 at 17:15; Stop 09/11/18 at 13:13; Status DC Oxycodone/ Acetaminophen (Percocet 5/325) 1 tab PRN Q4HRS PRN PO SEVERE PAIN; Start 09/09/18 at 17:15; Stop 09/15/18 at 12:06; Status DC Diphenhydramine HCl (Benadryl) 25 mg PRN QHS PRN PO INSOMNIA; Start 09/09/18 at 17:15; Stop 09/20/18 at 13:07; Status DC Aspirin (Children'S Aspirin) 81 mg DAILYWBKFT PO ; Start 09/10/18 at 08:00; Stop 09/12/18 at 09:56; Status DC Atorvastatin Calcium (Lipitor) 40 mg QHS PO Last administered on 09/09/18at 21: 11; Start 09/09/18 at 21:00; Stop 09/12/18 at 09:56; Status DC Atorvastatin Calcium (Lipitor) 40 mg QHS PO ; Start 09/09/18 at 21:00; Status UNV Duloxetine HCl (Cymbalta) 30 mg BID PO Last administered on 09/09/18at 21:12; Start 09/09/18 at 21:00; Stop 09/11/18 at 13:13; Status DC Ferrous Sulfate (Feosol) 325 mg DAILYAC PO ; Start 09/10/18 at 07:30; Stop at 13:13; Status DC Finasteride (Proscar) 5 mg DAILY PO ; Start 09/10/18 at 09:00; Stop 09/12/18 at 09:56; Status DC Lorazepam (Ativan) 0.5 mg PRN DAILY PRN PO ANXIETY / AGITATION; Start at 17:15; Stop 09/10/18 at 10:35; Status DC Metoprolol Tartrate (Lopressor) 25 mg BID PO Last administered on 09/09/18at 21 :12; Start 09/09/18 at 21:00; Stop 09/11/18 at 13:19; Status DC Pantoprazole Sodium (Protonix) 40 mg DAILYAC PO ; Start 09/10/18 at 07:30; Stop 09/11/18 at 12:20; Status DC Tamsulosin HCl (Flomax) 0.4 mg DAILY PO ; Start 09/10/18 at 09:00; Stop at 09:56; Status DC Tramadol HCl (Ultram) 50 mg PRN Q6HRS PRN PO MODERATE PAIN; Start 09/09/18 at 17:15; Stop 09/15/18 at 12:06; Status DC Budesonide (Pulmicort) 0.5 mg RTBID NEB Last administered on 09/12/18at 07:47; Start 09/09/18 at 20:00; Stop 09/12/18 at 11:45; Status DC Diltiazem HCl (Cardizem 24hr Cd) 120 mg DAILY PO ; Start 09/10/18 at 09:00; Stop 09/11/18 at 13:13; Status DC Insulin Glargine (Lantus) 10 units QHS SQ Last administered on 09/09/18at 21:49 ; Start 09/09/18 at 21:00; Stop 09/10/18 at 10:35; Status DC Levothyroxine Sodium (Synthroid) 50 mcg DAILY06 PO ; Start 09/10/18 at 06:00; Stop 09/12/18 at 09:56; Status DC Lidocaine (Lidoderm) 1 patch DAILY TD Last administered on 09/21/18at 08:30; Start 09/10/18 at 09:00 Lisinopril (Prinivil) 2.5 mg DAILY PO ; Start 09/10/18 at 09:00; Stop at 13:13; Status DC Non-Formulary Medication (Tiotropium [place] (Spiriva)) 2 inh DAILY IH ; Start 09/10/18 at 09:00; Status UNV Warfarin Sodium (Coumadin) 7.5 mg DAILY16 PO ; Start 09/09/18 at 18:00; Stop 09/10/18 at 16:34; Status DC Insulin Human Lispro (HumaLOG) 0-9 UNITS TIDWMEALS SQ ; Start 09/10/18 at 08:00 ; Stop 09/11/18 at 13:13; Status DC Dextrose (Dextrose 50%-Water Syringe) 12.5 gm PRN Q15MIN PRN IV SEE COMMENTS; Start 09/09/18 at 17:15; Stop 09/12/18 at 08:17; Status DC Miscellaneous (Lidoderm Patch Removal) 1 ea QHS MC Last administered on at 20:10; Start 09/09/18 at 21:00 Albuterol/ Ipratropium (Duoneb) 3 ml RTQID NEB Last administered on 09/21/18at 08:06; Start 09/09/18 at 20:00 Warfarin Sodium (Coumadin Per Physician) 1 each PRN DAILY PRN MC SEE COMMENTS Last administered on 09/11/18at 11:21; Start 09/09/18 at 17:30; Stop 09/11/18 at 13:13; Status DC Sodium Chloride 1,000 ml @ 75 mls/hr [id number] IV ; Start 09/09/18 at 17:30; Stop 09/10/18 at 10:35; Status DC Lorazepam (Ativan) 2 mg 1X ONCE IV Last administered on 09/09/18at 17:30; Start 09/09/18 at 17:30; Stop 09/09/18 at 17:31; Status DC Clonidine HCl (Catapres) 0.1 mg PRN Q1HR PRN PO SBP > 180 or DBP > 100, MRX3; Start 09/09/18 at 17:30 Lorazepam (Ativan) 2 mg PRN Q15MIN PRN IV CIWA 8-14 Last administered on at 20:38; Start 09/09/18 at 17:30; Stop 09/15/18 at 12:06; Status DC Albuterol/ Ipratropium (Duoneb) 3 ml 1X ONCE NEB ; Start 09/09/18 at 17:30; Stop 09/09/18 at 17:31; Status DC Levofloxacin/ Dextrose 150 ml @ 100 mls/hr 1X ONCE IV Last administered on at 21:03; Start 09/09/18 at 17:30; Stop 09/09/18 at 18:59; Status DC Albuterol/ Ipratropium (Duoneb) 3 ml RTQID NEB ; Start 09/09/18 at 20:00; Status UNV Guaifenesin (Robitussin Dm) 10 ml PRN Q6HRS PRN PO COUGH; Start 09/09/18 at 19 :00 Levofloxacin/ Dextrose (Levaquin Per Pharmacy) 1 each PRN DAILY PRN MC SEE COMMENTS; Start 09/09/18 at 19:00; Stop 09/11/18 at 09:24; Status DC Heparin Sodium (Porcine) (Heparin Sodium) 5,000 unit Q8HRS SQ Last administered on 09/11/18at 05:48; Start 09/09/18 at 22:00; Stop 09/12/18 at 11 :01; Status DC Levofloxacin/ Dextrose 50 ml @ 50 mls/hr Q24H IV ; Start 09/10/18 at 20:00; Stop 09/10/18 at 20:00; Status DC Haloperidol Lactate (Haldol Inj) 5 mg PRN Q6HRS PRN IVP AGITATION Last administered on 09/15/18at 23:00; Start 09/10/18 at 01:15; Stop 09/19/18 at 15 :15; Status DC Famotidine (Pepcid Vial) 20 mg QHS IVP Last administered on 09/12/18at 20:47; Start 09/10/18 at 21:00; Stop 09/13/18 at 08:50; Status DC Methylprednisolone Sodium Succinate (SOLU-Medrol 40MG VIAL) 40 mg Q12HR IV Last administered on 09/14/18at 08:24; Start 09/10/18 at 09:00; Stop 09/14/18 at 12:49; Status DC Chlordiazepoxide (Librium) 50 mg PRN Q6HRS PRN PO ANXIETY/AGITATION, 2ND CHOICE ; Start 09/10/18 at 10:45; Stop 09/17/18 at 14:33; Status DC Lorazepam (Ativan) 1 mg PRN DAILY PRN PO ANXIETY / AGITATION, 1ST CHOIC; Start 09/10/18 at 10:45; Stop 09/15/18 at 12:06; Status DC Dexmedetomidine HCl 200 mcg/ Sodium Chloride 50 ml @ 0 mls/hr CONT PRN IV PER PROTOCOL Last administered on 09/15/18at 09:03; Start 09/10/18 at 13:30; Stop 09/15/18 at 12:06; Status DC Sodium Chloride 500 ml @ 500 mls/hr 1X PRN PRN IV SEE COMMENTS; Start at 13:30 Atropine Sulfate (ATROPINE 0.5mg SYRINGE) 0.5 mg PRN Q5MIN PRN IV SEE COMMENTS ; Start 09/10/18 at 13:30; Stop 09/12/18 at 13:15; Status DC Levofloxacin/ Dextrose 100 ml @ 100 mls/hr Q24H IV Last administered on at 20:48; Start 09/10/18 at 20:00; Stop 09/11/18 at 09:36; Status DC Enalaprilat (Vasotec Inj) 1.25 mg PRN Q4HRS PRN IVP HYPERTENSION, 1ST CHOICE Last administered on 09/16/18at 20:51; Start 09/11/18 at 02:45 Vancomycin HCl (Vanco Per Pharmacy) 1 each PRN DAILY PRN MC SEE COMMENTS Last administered on 09/14/18at 12:16; Start 09/11/18 at 09:15; Stop 09/15/18 at 10 :49; Status DC Vancomycin HCl 2 gm/Sodium Chloride 500 ml @ 250 mls/hr 1X ONCE IV Last administered on 09/11/18at 10:40; Start 09/11/18 at 09:30; Stop 09/11/18 at 11 :29; Status DC Doxycycline Hyclate (Vibra-Tab) 100 mg BID PO ; Start 09/11/18 at 10:00; Stop 09/11/18 at 15:16; Status DC Cefepime HCl (Maxipime) 1 gm Q8H IVP Last administered on 09/19/18at 01:35; Start 09/11/18 at 10:00; Stop 09/19/18 at 08:14; Status DC Vancomycin HCl 1.75 gm/Sodium Chloride 500 ml @ 250 mls/hr Q12H IV Last administered on 09/12/18at 22:58; Start 09/11/18 at 23:00; Stop 09/12/18 at 23 :59; Status DC Vancomycin HCl (Vancomycin Trough Level) 1 each 1X ONCE MC Last administered on 09/12/18at 22:26; Start 09/12/18 at 22:30; Stop 09/12/18 at 22:31; Status DC Pantoprazole Sodium (PROTONIX VIAL for IV PUSH) 40 mg DAILYAC IVP Last administered on 09/21/18at 08:30; Start 09/11/18 at 12:30 Multivitamins 10 ml/Thiamine HCl 100 mg/Folic Acid 1 mg/Sodium Chloride 1,011.2 ml @ 0 mls/hr DAILY IV Last administered on 09/21/18at 09:31; Start 09/11/18 at 14:00 Insulin Human Lispro (HumaLOG) 0-7 UNITS TIDWMEALS SQ ; Start 09/11/18 at 17:00 ; Stop 09/11/18 at 17:00; Status DC Dextrose (Dextrose 50%-Water Syringe) 12.5 gm PRN Q15MIN PRN IV SEE COMMENTS; Start 09/11/18 at 13:00 Insulin Human Lispro (HumaLOG) 0-7 UNITS Q6HRS SQ Last administered on at 05:41; Start 09/11/18 at 18:00 Levothyroxine Sodium 0.025 mcg/ Sodium Chloride 5 ml @ 0 mls/hr DAILY IVP ; Start 09/11/18 at 13:30; Stop 09/11/18 at 13:52; Status DC Magnesium Sulfate 50 ml @ 25 mls/hr 1X ONCE IV Last administered on at 15:40; Start 09/11/18 at 13:30; Stop 09/11/18 at 15:29; Status DC Levothyroxine Sodium 25 mcg/ Sodium Chloride 5 ml @ 0 mls/hr DAILY IVP Last administered on 09/21/18at 08:30; Start 09/11/18 at 13:52 Levothyroxine Sodium 25 mcg/ Sodium Chloride 5 ml @ 0 mls/hr 1X ONCE IVP Last administered on 09/11/18at 14:45; Start 09/11/18 at 14:45; Stop 09/11/18 at 14 :46; Status DC Doxycycline Hyclate 100 mg/ Dextrose 100 ml @ 50 mls/hr Q12HR IV Last administered on 09/19/18at 07:55; Start 09/11/18 at 16:00; Stop 09/19/18 at 08 :14; Status DC Magnesium Sulfate 50 ml @ 25 mls/hr 1X ONCE IV Last administered on at 12:56; Start 09/12/18 at 11:30; Stop 09/12/18 at 13:29; Status DC Amino Acids/ Glycerin/ Electrolytes 1,000 ml @ 80 mls/hr [id number] IV Last administered on 09/20/18at 18:03; Start 09/12/18 at 11:30 Haloperidol Lactate (Haldol Inj) 10 mg Q8HRS IVP Last administered on at 06:02; Start 09/12/18 at 14:00; Stop 09/16/18 at 13:14; Status DC Dexmedetomidine HCl 200 mcg/ Sodium Chloride 50 ml @ 0 mls/hr CONT PRN IV PER PROTOCOL; Start 09/12/18 at 13:15; Stop 09/12/18 at 14:04; Status DC Sodium Chloride 500 ml @ 500 mls/hr 1X PRN PRN IV SEE COMMENTS; Start at 13:15 Atropine Sulfate (ATROPINE 0.5mg SYRINGE) 0.5 mg PRN Q5MIN PRN IV SEE COMMENTS ; Start 09/12/18 at 13:15; Stop 09/20/18 at 13:07; Status DC Morphine Sulfate (Morphine Sulfate) 2 mg PRN Q2HR PRN IV PAIN Last administered on 09/14/18at 05:10; Start 09/12/18 at 13:15; Stop 09/14/18 at 12 :57; Status DC Metoprolol Tartrate (Lopressor) 25 mg BID PO ; Start 09/12/18 at 17:00; Stop 09/12/18 at 17:00; Status DC Metoprolol Tartrate (Lopressor Vial) 5 mg Q6HRS IVP Last administered on at 06:13; Start 09/12/18 at 18:00 Vancomycin HCl 2 gm/Sodium Chloride 500 ml @ 250 mls/hr Q12H IV Last administered on 09/14/18at 23:26; Start 09/13/18 at 11:00; Stop 09/15/18 at 10 :49; Status DC Vancomycin HCl (Vancomycin Trough Level) 1 each 1X ONCE MC Last administered on 09/14/18at 10:30; Start 09/14/18 at 10:30; Stop 09/14/18 at 10:31; Status DC Nitroglycerin (Nitro-Bid Oint) 1 inch Q6HRS TP Last administered on 09/21/18at 06:14; Start 09/14/18 at 08:30 Aspirin (Aspirin) 300 mg DAILY MD Last administered on 09/20/18at 08:15; Start 09/14/18 at 11:00 Methylprednisolone Sodium Succinate (SOLU-Medrol 40MG VIAL) 40 mg DAILY IV Last administered on 09/20/18at 08:15; Start 09/15/18 at 09:00; Stop 09/20/18 at 12:45; Status DC Morphine Sulfate (Morphine Sulfate) 2 mg PRN Q2HR PRN IV PAIN Last administered on 09/17/18at 02:01; Start 09/14/18 at 13:00; Stop 09/20/18 at 13 :02; Status DC Lorazepam (Ativan) 2 mg PRN Q4HRS PRN IV ANXIETY / AGITATION Last administered on 09/15/18at 23:00; Start 09/15/18 at 22:45; Stop 09/16/18 at 13:14; Status DC Haloperidol Lactate (Haldol Inj) 5 mg Q8HRS IVP Last administered on at 06:11; Start 09/16/18 at 14:00; Stop 09/17/18 at 09:42; Status DC Chlordiazepoxide (Librium) 50 mg Q6H PO Last administered on 09/18/18at 08:26; Start 09/17/18 at 15:00; Stop 09/18/18 at 12:41; Status DC Chlordiazepoxide (Librium) 50 mg PRN Q1HR PRN PO For CIWA 8-14; Start at 14:30; Stop 09/20/18 at 13:07; Status DC Chlordiazepoxide (Librium) 100 mg PRN Q1HR PRN PO For CIWA 15 or greater; Start 09/17/18 at 14:30; Stop 09/20/18 at 13:02; Status DC Haloperidol Lactate (Haldol Inj) 5 mg PRN Q4HRS PRN IVP Hallucinatns,Confusn, Delirium Last administered on 09/21/18at 05:02; Start 09/17/18 at 14:30 Nitroglycerin/ Dextrose 250 ml @ 1.5 mls/hr CONT PRN IV SEE I/O RECORD; Start 09/17/18 at 15:30; Stop 09/19/18 at 10:52; Status DC Lorazepam (Ativan) 1 mg PRN Q4HRS PRN IV ANXIETY / AGITATION; Start 09/17/18 at 15:45; Stop 09/20/18 at 13:02; Status DC Lorazepam (Ativan) 2 mg PRN Q4HRS PRN IV ANXIETY / AGITATION Last administered on 09/20/18at 08:14; Start 09/17/18 at 16:00; Stop 09/20/18 at 13:02; Status DC Chlordiazepoxide (Librium) 25 mg Q6H PO Last administered on 09/20/18at 08:10; Start 09/18/18 at 15:00; Stop 09/20/18 at 12:45; Status DC Enoxaparin Sodium (Lovenox 40mg Syringe) 40 mg Q24H SQ Last administered on at 14:49; Start 09/19/18 at 12:00 Chlordiazepoxide (Librium) 25 mg PRN Q6HRS PRN PO withdrawals only; Start at 12:45; Stop 09/20/18 at 13:02; Status DC Methylprednisolone Sodium Succinate (SOLU-Medrol 40MG VIAL) 20 mg DAILY IV Last administered on 09/21/18at 09:00; Start 09/21/18 at 09:00 Active Scripts Active Pantoprazole Sodium 40 Mg Tablet.dr 40 Mg PO DAILYAC Lidoderm (Lidocaine) 700 Mg Adh..patch 1 Patch TD DAILY 12hours on, 12 hours off Lisinopril 2.5 Mg Tablet 2.5 Mg PO DAILY Feosol (Ferrous Sulfate) 325 Mg Tablet 325 Mg PO DAILYAC Children's Aspirin (Aspirin) 81 Mg Tab.chew 81 Mg PO DAILYWBKFT Reported Ventolin Hfa Inhaler (Albuterol Sulfate) 18 Gm Hfa.aer.ad 2 Puff INH Q4HRS Mirtazapine 45 Mg Tablet 1 Tab PO QHS Glipizide 5 Mg Tablet 1 Tab PO BID Metformin Hcl 1,000 Mg Tablet 1,000 Mg PO BIDWMEALS Lantus (Insulin Glargine,Hum.rec.anlog) 100 Unit/1 Ml Vial 50 Unit SQ HS NITROGLYCERIN SubLingual (Nitroglycerin) 0.4 Mg Tab.subl 0.4 Mg SL PRN Q5MIN PRN Fluoxetine Hcl 20 Mg Capsule 3 Cap PO DAILY Novolin R (Insulin Regular, Human) 100 Unit/1 Ml Vial 100 Unit IJ QIDACHS Vitamin D3 (Cholecalciferol (Vitamin D3)) 1,000 Unit Tablet 1 Tab PO TID Vitamin B-12 (Cyanocobalamin (Vitamin B-12)) 1,000 Mcg Tablet 1 Tab PO DAILY Gemfibrozil 600 Mg Tablet 0.5 Tab PO BID Pepcid (Famotidine) 20 Mg Tablet 10 Mg PO BID Cardizem Cd (Diltiazem Hcl) 240 Mg Cap.er.24h 1 Cap PO DAILY Robaxin (Methocarbamol) 500 Mg Tablet 1 Tab PO BID PRN Niaspan (Niacin) 500 Mg Tab.er.24h 1 Tab PO QHS Gabapentin 600 Mg Tablet 300 Mg PO QID Symbicort 80-4.5 Mcg Inhaler (Budesonide/Formoterol Fumarate) 10.2 Gm Hfa.aer.ad 2 Puff IH BID Finasteride 5 Mg Tablet 1 Tab PO DAILY Levothyroxine Sodium 50 Mcg Tablet 1 Tab PO DAILY Tamsulosin Hcl 0.4 Mg Cap.er.24h 0.4 Mg PO BID Spiriva (Tiotropium [place]) 18 Mcg Cap.w.dev 2 Inh IH DAILY Hydrocodone-Apap 7.5-325 (Hydrocodone Bit/Acetaminophen) 1 Each Tablet 1 Tab PO Q4HRS PRN Metoprolol Tartrate 25 Mg Tablet 1 Tab PO BID Vitals/I & O Vital Sign - Last 24 Hours 09/20/18 09/20/18 09/20/18 09/20/18 14:49 15:00 15:01 15:29 Temp 98.4 98.4 Pulse 77 89 77 Resp 20 B/P (MAP) 114/84 145/99 (114) 114/84 Pulse Ox 94 O2 Delivery Nasal Cannula Nasal Cannula O2 Flow Rate 2.0 2.0 09/20/18 09/20/18 09/20/18 09/20/18 18:00 18:08 19:52 19:57 Pulse 96 96 78 Resp 20 B/P (MAP) 129/88 129/88 Pulse Ox 95 90 O2 Delivery Nasal Cannula Room Air O2 Flow Rate 2.0 09/20/18 09/20/18 09/20/18 09/20/18 20:00 23:09 23:22 23:58 Temp 97.8 97.8 Pulse 83 83 83 Resp 20 B/P (MAP) 173/93 173/93 173/93 (119) Pulse Ox 95 O2 Delivery Nasal Cannula Nasal Cannula O2 Flow Rate 2.0 2.0 09/21/18 09/21/18 09/21/18 09/21/18 03:52 06:13 06:14 06:55 Temp 98.0 97.6 98.0 97.6 Pulse 77 80 80 85 Resp 24 20 B/P (MAP) 149/82 (104) 106/73 103/76 149/76 (100) Pulse Ox 97 95 O2 Delivery Nasal Cannula Nasal Cannula O2 Flow Rate 2.0 2.0 09/21/18 09/21/18 09/21/18 08:00 08:07 10:30 Temp 97.8 97.8 Pulse 74 Resp 22 B/P (MAP) 155/86 (109) Pulse Ox 96 92 O2 Delivery Nasal Cannula Nasal Cannula Room Air O2 Flow Rate 2.0 2.0 Intake and Output 09/20/18 09/20/18 09/21/18 15:01 23:01 07:01 Intake Total 0 ml 0 ml 0 ml Output Total 400 ml 950 ml Balance 0 ml -400 ml -950 ml WILLEM CORRAL MD Sep 21, 2018 11:42
[2018-09-21] MEDS: AMINO AC 3%/ELECTROLYTE/GLYCER 1,000 ML IV SCH ×2 (13:29→17:58)
[2018-09-21] MEDS: ENOXAPARIN 40 MG/0.4 ML SYRINGE. SQ SCH (13:30)
[2018-09-21 15:28] VITALS: BP 176/78
--- NOTE | 2018-09-21 15:33 | PDOC ---
PROGRESS NOTES Assessment Problems Medical Problems: (1) Acute kidney injury Status: Acute (2) Alcohol withdrawal Status: Acute (3) Pneumonia Status: Acute (4) Rhabdomyolysis Status: Acute Toxic encephalopathy due to narcotics. Hypertensive encephalopathy. Alcohol intoxication and component of Wernicke's Delirium tremens, hallucinations, resolved Brain MRI negative, EEG negative Tremors, improved, off Haldol Dysphagia Plan Chlordiazepoxide, scheduled dose, watch for sedation If dysphagia persists, may need PEG Transfer to geriatric psychiatry or SNU after we can resolve his nutrition issues Discussed with Subjective Denies pain Objective Vital Signs Date Time Temp Pulse Resp B/P (MAP) Pulse Ox O2 Delivery O2 Flow Rate FiO2 09/21/18 15:28 96.0 75 20 176/78 (110) 90 Room Air 96.0 09/21/18 08:07 2.0 Intake and Output 09/21/18 07:01 Intake Total 0 ml Output Total 1350 ml Balance -1350 ml Intake Oral 0 ml Output Urine Total 1350 ml PHYSICAL EXAM Alert, oriented only to person PERRL. EOMI. CN: no focal findings. Muscle tone: normal. Muscle strength: 3-4/5 DTR: 1+ Plantar reflex: Flexor Gait: not examined in bed. Sensory exam: no abnormal findings. Cerebellar: No limb ataxia, no tremor Review of Relevant I have reviewed the following items barby (where applicable) has been applied. Labs Laboratory Tests Test 09/19/18 17:25 09/19/18 20:34 09/20/18 06:24 09/20/18 07:14 Glucose (Fingerstick) 137 mg/dL (70-99) 124 mg/dL (70-99) 119 mg/dL (70-99) 116 mg/dL (70-99) Test 09/20/18 14:43 09/20/18 18:05 09/20/18 23:07 09/21/18 06:02 Glucose (Fingerstick) 175 mg/dL (70-99) 144 mg/dL (70-99) 106 mg/dL (70-99) 129 mg/dL (70-99) Test 09/21/18 12:09 Glucose (Fingerstick) 151 mg/dL (70-99) Laboratory Tests Test 09/20/18 18:05 09/20/18 23:07 09/21/18 06:02 09/21/18 12:09 Glucose (Fingerstick) 144 mg/dL (70-99) 106 mg/dL (70-99) 129 mg/dL (70-99) 151 mg/dL (70-99) Microbiology 09/09/18 Blood Culture - Final, Complete NO GROWTH AFTER 5 DAYS Medications Current Medications Thiamine Mononitrate (Vitamin B-1) 100 mg 1X STAT PO Last administered on at 14:50; Start 09/09/18 at 14:38; Stop 09/09/18 at 14:41; Status DC Folic Acid (Folic Acid) 1 mg 1X STAT PO Last administered on 09/09/18at 14:50 ; Start 09/09/18 at 14:38; Stop 09/09/18 at 14:41; Status DC Sodium Chloride 1,000 ml @ 1,000 mls/hr 1X ONCE IV Last administered on 09/09at 14:50; Start 09/09/18 at 15:00; Stop 09/09/18 at 15:59; Status DC Labetalol HCl (Normodyne Iv Push) 20 mg 1X ONCE IVP Last administered on 09/09at 16:53; Start 09/09/18 at 17:00; Stop 09/09/18 at 17:01; Status DC Chlordiazepoxide (Librium) 25 mg PRN Q6HRS PRN PO ANXIETY / AGITATION Last administered on 09/09/18at 22:35; Start 09/09/18 at 17:00; Stop 09/10/18 at 10 :35; Status DC Acetaminophen (Tylenol) 500 mg PRN Q6HRS PRN PO MILD PAIN / TEMP; Start at 17:00 Morphine Sulfate (Morphine Sulfate) 2 mg PRN Q2HR PRN IV MODERATE TO SEVERE PAIN Last administered on 09/12/18at 11:14; Start 09/09/18 at 17:00; Stop at 11:45; Status DC Sodium Chloride 1,000 ml @ 100 mls/hr Q10H IV Last administered on 09/09/18at 19:30; Start 09/09/18 at 18:00; Stop 09/10/18 at 10:35; Status DC Multivitamins (Thera M Plus) 1 tab DAILY PO ; Start 09/10/18 at 09:00; Stop at 13:13; Status DC Thiamine Mononitrate (Vitamin B-1) 100 mg DAILY PO ; Start 09/10/18 at 09:00; Stop 09/11/18 at 13:13; Status DC Folic Acid (Folic Acid) 1 mg DAILY PO ; Start 09/10/18 at 09:00; Stop at 13:13; Status DC Labetalol HCl (Normodyne Iv Push) 20 mg PRN Q2HR PRN IVP HYPERTENSION, 2ND CHOICE Last administered on 09/17/18at 14:47; Start 09/09/18 at 17:00 Nicotine (Nicoderm Cq 21mg) 1 patch PRN DAILY PRN TD SMOKING CESSATION; Start 09/09/18 at 17:15; Stop 09/11/18 at 13:13; Status DC Oxycodone/ Acetaminophen (Percocet 5/325) 1 tab PRN Q4HRS PRN PO SEVERE PAIN; Start 09/09/18 at 17:15; Stop 09/15/18 at 12:06; Status DC Diphenhydramine HCl (Benadryl) 25 mg PRN QHS PRN PO INSOMNIA; Start 09/09/18 at 17:15; Stop 09/20/18 at 13:07; Status DC Aspirin (Children'S Aspirin) 81 mg DAILYWBKFT PO ; Start 09/10/18 at 08:00; Stop 09/12/18 at 09:56; Status DC Atorvastatin Calcium (Lipitor) 40 mg QHS PO Last administered on 09/09/18at 21: 11; Start 09/09/18 at 21:00; Stop 09/12/18 at 09:56; Status DC Atorvastatin Calcium (Lipitor) 40 mg QHS PO ; Start 09/09/18 at 21:00; Status UNV Duloxetine HCl (Cymbalta) 30 mg BID PO Last administered on 09/09/18at 21:12; Start 09/09/18 at 21:00; Stop 09/11/18 at 13:13; Status DC Ferrous Sulfate (Feosol) 325 mg DAILYAC PO ; Start 09/10/18 at 07:30; Stop at 13:13; Status DC Finasteride (Proscar) 5 mg DAILY PO ; Start 09/10/18 at 09:00; Stop 09/12/18 at 09:56; Status DC Lorazepam (Ativan) 0.5 mg PRN DAILY PRN PO ANXIETY / AGITATION; Start at 17:15; Stop 09/10/18 at 10:35; Status DC Metoprolol Tartrate (Lopressor) 25 mg BID PO Last administered on 09/09/18at 21 :12; Start 09/09/18 at 21:00; Stop 09/11/18 at 13:19; Status DC Pantoprazole Sodium (Protonix) 40 mg DAILYAC PO ; Start 09/10/18 at 07:30; Stop 09/11/18 at 12:20; Status DC Tamsulosin HCl (Flomax) 0.4 mg DAILY PO ; Start 09/10/18 at 09:00; Stop at 09:56; Status DC Tramadol HCl (Ultram) 50 mg PRN Q6HRS PRN PO MODERATE PAIN; Start 09/09/18 at 17:15; Stop 09/15/18 at 12:06; Status DC Budesonide (Pulmicort) 0.5 mg RTBID NEB Last administered on 09/12/18at 07:47; Start 09/09/18 at 20:00; Stop 09/12/18 at 11:45; Status DC Diltiazem HCl (Cardizem 24hr Cd) 120 mg DAILY PO ; Start 09/10/18 at 09:00; Stop 09/11/18 at 13:13; Status DC Insulin Glargine (Lantus) 10 units QHS SQ Last administered on 09/09/18at 21:49 ; Start 09/09/18 at 21:00; Stop 09/10/18 at 10:35; Status DC Levothyroxine Sodium (Synthroid) 50 mcg DAILY06 PO ; Start 09/10/18 at 06:00; Stop 09/12/18 at 09:56; Status DC Lidocaine (Lidoderm) 1 patch DAILY TD Last administered on 09/21/18at 08:30; Start 09/10/18 at 09:00 Lisinopril (Prinivil) 2.5 mg DAILY PO ; Start 09/10/18 at 09:00; Stop at 13:13; Status DC Non-Formulary Medication (Tiotropium [place] (Spiriva)) 2 inh DAILY IH ; Start 09/10/18 at 09:00; Status UNV Warfarin Sodium (Coumadin) 7.5 mg DAILY16 PO ; Start 09/09/18 at 18:00; Stop 09/10/18 at 16:34; Status DC Insulin Human Lispro (HumaLOG) 0-9 UNITS TIDWMEALS SQ ; Start 09/10/18 at 08:00 ; Stop 09/11/18 at 13:13; Status DC Dextrose (Dextrose 50%-Water Syringe) 12.5 gm PRN Q15MIN PRN IV SEE COMMENTS; Start 09/09/18 at 17:15; Stop 09/12/18 at 08:17; Status DC Miscellaneous (Lidoderm Patch Removal) 1 ea QHS MC Last administered on at 20:10; Start 09/09/18 at 21:00 Albuterol/ Ipratropium (Duoneb) 3 ml RTQID NEB Last administered on 09/21/18at 11:45; Start 09/09/18 at 20:00 Warfarin Sodium (Coumadin Per Physician) 1 each PRN DAILY PRN MC SEE COMMENTS Last administered on 09/11/18at 11:21; Start 09/09/18 at 17:30; Stop 09/11/18 at 13:13; Status DC Sodium Chloride 1,000 ml @ 75 mls/hr [id number] IV ; Start 09/09/18 at 17:30; Stop 09/10/18 at 10:35; Status DC Lorazepam (Ativan) 2 mg 1X ONCE IV Last administered on 09/09/18at 17:30; Start 09/09/18 at 17:30; Stop 09/09/18 at 17:31; Status DC Clonidine HCl (Catapres) 0.1 mg PRN Q1HR PRN PO SBP > 180 or DBP > 100, MRX3; Start 09/09/18 at 17:30 Lorazepam (Ativan) 2 mg PRN Q15MIN PRN IV CIWA 8-14 Last administered on at 20:38; Start 09/09/18 at 17:30; Stop 09/15/18 at 12:06; Status DC Albuterol/ Ipratropium (Duoneb) 3 ml 1X ONCE NEB ; Start 09/09/18 at 17:30; Stop 09/09/18 at 17:31; Status DC Levofloxacin/ Dextrose 150 ml @ 100 mls/hr 1X ONCE IV Last administered on at 21:03; Start 09/09/18 at 17:30; Stop 09/09/18 at 18:59; Status DC Albuterol/ Ipratropium (Duoneb) 3 ml RTQID NEB ; Start 09/09/18 at 20:00; Status UNV Guaifenesin (Robitussin Dm) 10 ml PRN Q6HRS PRN PO COUGH; Start 09/09/18 at 19 :00 Levofloxacin/ Dextrose (Levaquin Per Pharmacy) 1 each PRN DAILY PRN MC SEE COMMENTS; Start 09/09/18 at 19:00; Stop 09/11/18 at 09:24; Status DC Heparin Sodium (Porcine) (Heparin Sodium) 5,000 unit Q8HRS SQ Last administered on 09/11/18at 05:48; Start 09/09/18 at 22:00; Stop 09/12/18 at 11 :01; Status DC Levofloxacin/ Dextrose 50 ml @ 50 mls/hr Q24H IV ; Start 09/10/18 at 20:00; Stop 09/10/18 at 20:00; Status DC Haloperidol Lactate (Haldol Inj) 5 mg PRN Q6HRS PRN IVP AGITATION Last administered on 09/15/18at 23:00; Start 09/10/18 at 01:15; Stop 09/19/18 at 15 :15; Status DC Famotidine (Pepcid Vial) 20 mg QHS IVP Last administered on 09/12/18at 20:47; Start 09/10/18 at 21:00; Stop 09/13/18 at 08:50; Status DC Methylprednisolone Sodium Succinate (SOLU-Medrol 40MG VIAL) 40 mg Q12HR IV Last administered on 09/14/18at 08:24; Start 09/10/18 at 09:00; Stop 09/14/18 at 12:49; Status DC Chlordiazepoxide (Librium) 50 mg PRN Q6HRS PRN PO ANXIETY/AGITATION, 2ND CHOICE ; Start 09/10/18 at 10:45; Stop 09/17/18 at 14:33; Status DC Lorazepam (Ativan) 1 mg PRN DAILY PRN PO ANXIETY / AGITATION, 1ST CHOIC; Start 09/10/18 at 10:45; Stop 09/15/18 at 12:06; Status DC Dexmedetomidine HCl 200 mcg/ Sodium Chloride 50 ml @ 0 mls/hr CONT PRN IV PER PROTOCOL Last administered on 09/15/18at 09:03; Start 09/10/18 at 13:30; Stop 09/15/18 at 12:06; Status DC Sodium Chloride 500 ml @ 500 mls/hr 1X PRN PRN IV SEE COMMENTS; Start at 13:30 Atropine Sulfate (ATROPINE 0.5mg SYRINGE) 0.5 mg PRN Q5MIN PRN IV SEE COMMENTS ; Start 09/10/18 at 13:30; Stop 09/12/18 at 13:15; Status DC Levofloxacin/ Dextrose 100 ml @ 100 mls/hr Q24H IV Last administered on at 20:48; Start 09/10/18 at 20:00; Stop 09/11/18 at 09:36; Status DC Enalaprilat (Vasotec Inj) 1.25 mg PRN Q4HRS PRN IVP HYPERTENSION, 1ST CHOICE Last administered on 09/16/18at 20:51; Start 09/11/18 at 02:45 Vancomycin HCl (Vanco Per Pharmacy) 1 each PRN DAILY PRN MC SEE COMMENTS Last administered on 09/14/18at 12:16; Start 09/11/18 at 09:15; Stop 09/15/18 at 10 :49; Status DC Vancomycin HCl 2 gm/Sodium Chloride 500 ml @ 250 mls/hr 1X ONCE IV Last administered on 09/11/18at 10:40; Start 09/11/18 at 09:30; Stop 09/11/18 at 11 :29; Status DC Doxycycline Hyclate (Vibra-Tab) 100 mg BID PO ; Start 09/11/18 at 10:00; Stop 09/11/18 at 15:16; Status DC Cefepime HCl (Maxipime) 1 gm Q8H IVP Last administered on 09/19/18at 01:35; Start 09/11/18 at 10:00; Stop 09/19/18 at 08:14; Status DC Vancomycin HCl 1.75 gm/Sodium Chloride 500 ml @ 250 mls/hr Q12H IV Last administered on 09/12/18at 22:58; Start 09/11/18 at 23:00; Stop 09/12/18 at 23 :59; Status DC Vancomycin HCl (Vancomycin Trough Level) 1 each 1X ONCE MC Last administered on 09/12/18at 22:26; Start 09/12/18 at 22:30; Stop 09/12/18 at 22:31; Status DC Pantoprazole Sodium (PROTONIX VIAL for IV PUSH) 40 mg DAILYAC IVP Last administered on 09/21/18at 08:30; Start 09/11/18 at 12:30 Multivitamins 10 ml/Thiamine HCl 100 mg/Folic Acid 1 mg/Sodium Chloride 1,011.2 ml @ 0 mls/hr DAILY IV Last administered on 09/21/18at 09:31; Start 09/11/18 at 14:00 Insulin Human Lispro (HumaLOG) 0-7 UNITS TIDWMEALS SQ ; Start 09/11/18 at 17:00 ; Stop 09/11/18 at 17:00; Status DC Dextrose (Dextrose 50%-Water Syringe) 12.5 gm PRN Q15MIN PRN IV SEE COMMENTS; Start 09/11/18 at 13:00 Insulin Human Lispro (HumaLOG) 0-7 UNITS Q6HRS SQ Last administered on at 05:41; Start 09/11/18 at 18:00 Levothyroxine Sodium 0.025 mcg/ Sodium Chloride 5 ml @ 0 mls/hr DAILY IVP ; Start 09/11/18 at 13:30; Stop 09/11/18 at 13:52; Status DC Magnesium Sulfate 50 ml @ 25 mls/hr 1X ONCE IV Last administered on at 15:40; Start 09/11/18 at 13:30; Stop 09/11/18 at 15:29; Status DC Levothyroxine Sodium 25 mcg/ Sodium Chloride 5 ml @ 0 mls/hr DAILY IVP Last administered on 09/21/18at 08:30; Start 09/11/18 at 13:52; Stop 09/21/18 at 13 :13; Status DC Levothyroxine Sodium 25 mcg/ Sodium Chloride 5 ml @ 0 mls/hr 1X ONCE IVP Last administered on 09/11/18at 14:45; Start 09/11/18 at 14:45; Stop 09/11/18 at 14 :46; Status DC Doxycycline Hyclate 100 mg/ Dextrose 100 ml @ 50 mls/hr Q12HR IV Last administered on 09/19/18at 07:55; Start 09/11/18 at 16:00; Stop 09/19/18 at 08 :14; Status DC Magnesium Sulfate 50 ml @ 25 mls/hr 1X ONCE IV Last administered on at 12:56; Start 09/12/18 at 11:30; Stop 09/12/18 at 13:29; Status DC Amino Acids/ Glycerin/ Electrolytes 1,000 ml @ 80 mls/hr [id number] IV Last administered on 09/21/18at 13:29; Start 09/12/18 at 11:30 Haloperidol Lactate (Haldol Inj) 10 mg Q8HRS IVP Last administered on at 06:02; Start 09/12/18 at 14:00; Stop 09/16/18 at 13:14; Status DC Dexmedetomidine HCl 200 mcg/ Sodium Chloride 50 ml @ 0 mls/hr CONT PRN IV PER PROTOCOL; Start 09/12/18 at 13:15; Stop 09/12/18 at 14:04; Status DC Sodium Chloride 500 ml @ 500 mls/hr 1X PRN PRN IV SEE COMMENTS; Start at 13:15 Atropine Sulfate (ATROPINE 0.5mg SYRINGE) 0.5 mg PRN Q5MIN PRN IV SEE COMMENTS ; Start 09/12/18 at 13:15; Stop 09/20/18 at 13:07; Status DC Morphine Sulfate (Morphine Sulfate) 2 mg PRN Q2HR PRN IV PAIN Last administered on 09/14/18at 05:10; Start 09/12/18 at 13:15; Stop 09/14/18 at 12 :57; Status DC Metoprolol Tartrate (Lopressor) 25 mg BID PO ; Start 09/12/18 at 17:00; Stop 09/12/18 at 17:00; Status DC Metoprolol Tartrate (Lopressor Vial) 5 mg Q6HRS IVP Last administered on at 13:31; Start 09/12/18 at 18:00 Vancomycin HCl 2 gm/Sodium Chloride 500 ml @ 250 mls/hr Q12H IV Last administered on 09/14/18at 23:26; Start 09/13/18 at 11:00; Stop 09/15/18 at 10 :49; Status DC Vancomycin HCl (Vancomycin Trough Level) 1 each 1X ONCE MC Last administered on 09/14/18at 10:30; Start 09/14/18 at 10:30; Stop 09/14/18 at 10:31; Status DC Nitroglycerin (Nitro-Bid Oint) 1 inch Q6HRS TP Last administered on 09/21/18at 13:31; Start 09/14/18 at 08:30 Aspirin (Aspirin) 300 mg DAILY TN Last administered on 09/20/18at 08:15; Start 09/14/18 at 11:00 Methylprednisolone Sodium Succinate (SOLU-Medrol 40MG VIAL) 40 mg DAILY IV Last administered on 09/20/18at 08:15; Start 09/15/18 at 09:00; Stop 09/20/18 at 12:45; Status DC Morphine Sulfate (Morphine Sulfate) 2 mg PRN Q2HR PRN IV PAIN Last administered on 09/17/18at 02:01; Start 09/14/18 at 13:00; Stop 09/20/18 at 13 :02; Status DC Lorazepam (Ativan) 2 mg PRN Q4HRS PRN IV ANXIETY / AGITATION Last administered on 09/15/18at 23:00; Start 09/15/18 at 22:45; Stop 09/16/18 at 13:14; Status DC Haloperidol Lactate (Haldol Inj) 5 mg Q8HRS IVP Last administered on at 06:11; Start 09/16/18 at 14:00; Stop 09/17/18 at 09:42; Status DC Chlordiazepoxide (Librium) 50 mg Q6H PO Last administered on 09/18/18at 08:26; Start 09/17/18 at 15:00; Stop 09/18/18 at 12:41; Status DC Chlordiazepoxide (Librium) 50 mg PRN Q1HR PRN PO For CIWA 8-14; Start at 14:30; Stop 09/20/18 at 13:07; Status DC Chlordiazepoxide (Librium) 100 mg PRN Q1HR PRN PO For CIWA 15 or greater; Start 09/17/18 at 14:30; Stop 09/20/18 at 13:02; Status DC Haloperidol Lactate (Haldol Inj) 5 mg PRN Q4HRS PRN IVP Hallucinatns,Confusn, Delirium Last administered on 09/21/18at 05:02; Start 09/17/18 at 14:30 Nitroglycerin/ Dextrose 250 ml @ 1.5 mls/hr CONT PRN IV SEE I/O RECORD; Start 09/17/18 at 15:30; Stop 09/19/18 at 10:52; Status DC Lorazepam (Ativan) 1 mg PRN Q4HRS PRN IV ANXIETY / AGITATION; Start 09/17/18 at 15:45; Stop 09/20/18 at 13:02; Status DC Lorazepam (Ativan) 2 mg PRN Q4HRS PRN IV ANXIETY / AGITATION Last administered on 09/20/18at 08:14; Start 09/17/18 at 16:00; Stop 09/20/18 at 13:02; Status DC Chlordiazepoxide (Librium) 25 mg Q6H PO Last administered on 09/20/18at 08:10; Start 09/18/18 at 15:00; Stop 09/20/18 at 12:45; Status DC Enoxaparin Sodium (Lovenox 40mg Syringe) 40 mg Q24H SQ Last administered on at 13:30; Start 09/19/18 at 12:00 Chlordiazepoxide (Librium) 25 mg PRN Q6HRS PRN PO withdrawals only; Start at 12:45; Stop 09/20/18 at 13:02; Status DC Methylprednisolone Sodium Succinate (SOLU-Medrol 40MG VIAL) 20 mg DAILY IV Last administered on 09/21/18at 09:00; Start 09/21/18 at 09:00 Levothyroxine Sodium 25 mcg/ Sodium Chloride 5 ml @ 0 mls/hr Q3DAYS IVP ; Start 09/24/18 at 09:00 Active Scripts Active Pantoprazole Sodium 40 Mg Tablet.dr 40 Mg PO DAILYAC Lidoderm (Lidocaine) 700 Mg Adh..patch 1 Patch TD DAILY 12hours on, 12 hours off Lisinopril 2.5 Mg Tablet 2.5 Mg PO DAILY Feosol (Ferrous Sulfate) 325 Mg Tablet 325 Mg PO DAILYAC Children's Aspirin (Aspirin) 81 Mg Tab.chew 81 Mg PO DAILYWBKFT Reported Ventolin Hfa Inhaler (Albuterol Sulfate) 18 Gm Hfa.aer.ad 2 Puff INH Q4HRS Mirtazapine 45 Mg Tablet 1 Tab PO QHS Glipizide 5 Mg Tablet 1 Tab PO BID Metformin Hcl 1,000 Mg Tablet 1,000 Mg PO BIDWMEALS Lantus (Insulin Glargine,Hum.rec.anlog) 100 Unit/1 Ml Vial 50 Unit SQ HS NITROGLYCERIN SubLingual (Nitroglycerin) 0.4 Mg Tab.subl 0.4 Mg SL PRN Q5MIN PRN Fluoxetine Hcl 20 Mg Capsule 3 Cap PO DAILY Novolin R (Insulin Regular, Human) 100 Unit/1 Ml Vial 100 Unit IJ QIDACHS Vitamin D3 (Cholecalciferol (Vitamin D3)) 1,000 Unit Tablet 1 Tab PO TID Vitamin B-12 (Cyanocobalamin (Vitamin B-12)) 1,000 Mcg Tablet 1 Tab PO DAILY Gemfibrozil 600 Mg Tablet 0.5 Tab PO BID Pepcid (Famotidine) 20 Mg Tablet 10 Mg PO BID Cardizem Cd (Diltiazem Hcl) 240 Mg Cap.er.24h 1 Cap PO DAILY Robaxin (Methocarbamol) 500 Mg Tablet 1 Tab PO BID PRN Niaspan (Niacin) 500 Mg Tab.er.24h 1 Tab PO QHS Gabapentin 600 Mg Tablet 300 Mg PO QID Symbicort 80-4.5 Mcg Inhaler (Budesonide/Formoterol Fumarate) 10.2 Gm Hfa.aer.ad 2 Puff IH BID Finasteride 5 Mg Tablet 1 Tab PO DAILY Levothyroxine Sodium 50 Mcg Tablet 1 Tab PO DAILY Tamsulosin Hcl 0.4 Mg Cap.er.24h 0.4 Mg PO BID Spiriva (Tiotropium [place]) 18 Mcg Cap.w.dev 2 Inh IH DAILY Hydrocodone-Apap 7.5-325 (Hydrocodone Bit/Acetaminophen) 1 Each Tablet 1 Tab PO Q4HRS PRN Metoprolol Tartrate 25 Mg Tablet 1 Tab PO BID Vitals/I & O Vital Sign - Last 24 Hours 09/20/18 09/20/18 09/20/18 09/20/18 15:29 18:00 18:08 19:52 Pulse 96 96 B/P (MAP) 129/88 129/88 Pulse Ox 95 O2 Delivery Nasal Cannula Nasal Cannula O2 Flow Rate 2.0 2.0 09/20/18 09/20/18 09/20/18 09/20/18 19:57 20:00 23:09 23:22 Pulse 78 83 83 Resp 20 B/P (MAP) 173/93 173/93 Pulse Ox 90 O2 Delivery Room Air Nasal Cannula O2 Flow Rate 2.0 09/20/18 09/21/18 09/21/18 09/21/18 23:58 03:52 06:13 06:14 Temp 97.8 98.0 97.8 98.0 Pulse 83 77 80 80 Resp 20 24 B/P (MAP) 173/93 (119) 149/82 (104) 106/73 103/76 Pulse Ox 95 97 O2 Delivery Nasal Cannula Nasal Cannula O2 Flow Rate 2.0 2.0 09/21/18 09/21/18 09/21/18 09/21/18 06:55 08:00 08:07 10:30 Temp 97.6 97.8 97.6 97.8 Pulse 85 74 Resp 20 22 B/P (MAP) 149/76 (100) 155/86 (109) Pulse Ox 95 96 92 O2 Delivery Nasal Cannula Nasal Cannula Nasal Cannula Room Air O2 Flow Rate 2.0 2.0 2.0 09/21/18 09/21/18 09/21/18 09/21/18 11:45 13:31 13:31 15:28 Temp 96.0 96.0 Pulse 74 74 75 Resp 20 B/P (MAP) 155/86 155/86 176/78 (110) Pulse Ox 94 90 O2 Delivery Room Air Room Air Intake and Output 09/20/18 09/20/18 09/21/18 15:01 23:01 07:01 Intake Total 0 ml 0 ml 0 ml Output Total 400 ml 950 ml Balance 0 ml -400 ml -950 ml LESLEY PALM MD Sep 21, 2018 15:33
[2018-09-21 19:09] VITALS: BP 175/100
[2018-09-21] MEDS: PATCH REMOVAL. MC SCH (20:36)
[2018-09-21 23:00] VITALS: BP 188/108
[2018-09-22 02:51] VITALS: BP 161/92
--- NOTE | 2018-09-22 05:09 | RAD ---
AP portable chest 09/22/2018. Reason for exam: PICC line placement. Comparison is made with a study of 09/13/2018. Patient is rotated more towards the right. A right side PICC line is now seen, its tip extends to the area of the cavoatrial junction. No new infiltrate or effusion is seen. There may have been some clearing of interstitial abnormality. A right IJ central line shown on the prior study has been removed. The heart may be mildly enlarged. IMPRESSION: Placement of PICC line. Electronically signed by: Keyur Robison Jr., MD (09/22/2018 5:05 AM) [id number]
[2018-09-22] MEDS: NITROGLYCERIN OINT 1 GM PACKET. TP SCH ×4 (06:00→18:00)
[2018-09-22] MEDS: INSULIN LISPRO 300 UNITS/3 ML INSULN.PEN. SQ SCH ×4 (06:00→18:00)
[2018-09-22] MEDS: AMINO AC 3%/ELECTROLYTE/GLYCER 1,000 ML IV SCH ×2 (06:38→12:29)
[2018-09-22] MEDS: METOPROLOL TARTRATE 5 MG/5 ML VIAL. IVP SCH ×4 (06:38→18:09)
[2018-09-22 07:27] VITALS: BP 141/57
[2018-09-22] MEDS: IPRATRPIUM/ALBUTEROL 0.5/2.5MG 3 ML NEBU. NEB SCH ×3 (07:54→15:43)
[2018-09-22] MEDS: PANTOPRAZOLE IV PUSH 40 MG VIAL. IVP SCH (08:00)
[2018-09-22] MEDS: methylPREDNISolone SOD SUCC PF 40 MG/ML VIAL. IV SCH (08:01)
[2018-09-22] MEDS: LIDOCAINE (700MG/PATCH) PATCH. TD SCH (08:01)
[2018-09-22] MEDS: ASPIRIN 300 MG SUPP.RECT PR SCH (08:02)
[2018-09-22] MEDS: MULTIVIT INFUSN,ADULT 4,VIT K 10 ML, THIAMINE INJ 100 MG, FOLIC ACID INJ 1 MG in IV NOR... IV SCH (08:02)
--- NOTE | 2018-09-22 08:38 | PDOC ---
PROGRESS NOTES Chief Complaint Chief Complaint Alcohol withdrawal Rhabdomyolysis- acute kidney injury secondary to above Hypercapnic/hypoxic respiratory failure in a super morbidly obese on NIPPV SABR[place], need CPAP at night Possible pickwickian syndrome CAP/atelectasis on chest x-ray History of CAD, CABG COPD flare History of sepsis/UTI History of IBS, alternating bowel movements History of alcoholism AK I on CK D/ VMN Diabetes Acute on chronic back pain-took 15 [place] in before the hospital stay Accel hypertension History of Present Illness History of Present Illness Off BiPAP, respiratory issues is stable but mentation is an issue Now has a right arm PICC-09/21/18- pulled IV line last night? Now has a sitter-did not need Haldol last night Failed swallow again Strict nothing by mouth including meds Mary now out-pulled last night? 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 Normal conjunctivae, Oral cavity pink, dry NECK: Supple LUNGS: Decreased in the bases. HEART: S1, S2 ABDOMEN: Obese, soft, no grimace or guarding to palpation : Mary EXTREMITIES: Trace edema. SKIN: Warm to touch without generalized signs of rash. NEUROLOGIC: [place] to voice, confused recognizes his by name, General: Alert, mild distress, Other (confused) Heart: Regular rate, Normal S1, Normal S2, Other (distant heart tones. ) Lungs: Crackles Abdomen: Soft, Other (obese) Extremities: No edema, Normal pulses Skin: No significant lesion Labs LABS Laboratory Tests Test 09/21/18 12:09 09/21/18 16:17 09/22/18 00:50 09/22/18 06:34 Glucose (Fingerstick) 151 mg/dL (70-99) 134 mg/dL (70-99) 93 mg/dL (70-99) 118 mg/dL (70-99) Review of Systems Review of Systems Confused and asleep, limited ROS Assessment and Plan Assessmemt and Plan Problems Medical Problems: (1) Acute kidney injury Status: Acute (2) Alcohol withdrawal Status: Acute (3) Pneumonia Status: Acute (4) Rhabdomyolysis Status: Acute Comment Review of Relevant I have reviewed the following items barby (where applicable) has been applied. Labs Laboratory Tests Test 09/20/18 14:43 09/20/18 18:05 09/20/18 23:07 09/21/18 06:02 Glucose (Fingerstick) 175 mg/dL (70-99) 144 mg/dL (70-99) 106 mg/dL (70-99) 129 mg/dL (70-99) Test 09/21/18 12:09 09/21/18 16:17 09/22/18 00:50 09/22/18 06:34 Glucose (Fingerstick) 151 mg/dL (70-99) 134 mg/dL (70-99) 93 mg/dL (70-99) 118 mg/dL (70-99) Laboratory Tests Test 09/21/18 12:09 09/21/18 16:17 09/22/18 00:50 09/22/18 06:34 Glucose (Fingerstick) 151 mg/dL (70-99) 134 mg/dL (70-99) 93 mg/dL (70-99) 118 mg/dL (70-99) Microbiology 09/09/18 Blood Culture - Final, Complete NO GROWTH AFTER 5 DAYS Medications Current Medications Thiamine Mononitrate (Vitamin B-1) 100 mg 1X STAT PO Last administered on at 14:50; Start 09/09/18 at 14:38; Stop 09/09/18 at 14:41; Status DC Folic Acid (Folic Acid) 1 mg 1X STAT PO Last administered on 09/09/18at 14:50 ; Start 09/09/18 at 14:38; Stop 09/09/18 at 14:41; Status DC Sodium Chloride 1,000 ml @ 1,000 mls/hr 1X ONCE IV Last administered on 09/09at 14:50; Start 09/09/18 at 15:00; Stop 09/09/18 at 15:59; Status DC Labetalol HCl (Normodyne Iv Push) 20 mg 1X ONCE IVP Last administered on 09/09at 16:53; Start 09/09/18 at 17:00; Stop 09/09/18 at 17:01; Status DC Chlordiazepoxide (Librium) 25 mg PRN Q6HRS PRN PO ANXIETY / AGITATION Last administered on 09/09/18at 22:35; Start 09/09/18 at 17:00; Stop 09/10/18 at 10 :35; Status DC Acetaminophen (Tylenol) 500 mg PRN Q6HRS PRN PO MILD PAIN / TEMP; Start at 17:00 Morphine Sulfate (Morphine Sulfate) 2 mg PRN Q2HR PRN IV MODERATE TO SEVERE PAIN Last administered on 09/12/18at 11:14; Start 09/09/18 at 17:00; Stop at 11:45; Status DC Sodium Chloride 1,000 ml @ 100 mls/hr Q10H IV Last administered on 09/09/18at 19:30; Start 09/09/18 at 18:00; Stop 09/10/18 at 10:35; Status DC Multivitamins (Thera M Plus) 1 tab DAILY PO ; Start 09/10/18 at 09:00; Stop at 13:13; Status DC Thiamine Mononitrate (Vitamin B-1) 100 mg DAILY PO ; Start 09/10/18 at 09:00; Stop 09/11/18 at 13:13; Status DC Folic Acid (Folic Acid) 1 mg DAILY PO ; Start 09/10/18 at 09:00; Stop at 13:13; Status DC Labetalol HCl (Normodyne Iv Push) 20 mg PRN Q2HR PRN IVP HYPERTENSION, 2ND CHOICE Last administered on 09/17/18at 14:47; Start 09/09/18 at 17:00 Nicotine (Nicoderm Cq 21mg) 1 patch PRN DAILY PRN TD SMOKING CESSATION; Start 09/09/18 at 17:15; Stop 09/11/18 at 13:13; Status DC Oxycodone/ Acetaminophen (Percocet 5/325) 1 tab PRN Q4HRS PRN PO SEVERE PAIN; Start 09/09/18 at 17:15; Stop 09/15/18 at 12:06; Status DC Diphenhydramine HCl (Benadryl) 25 mg PRN QHS PRN PO INSOMNIA; Start 09/09/18 at 17:15; Stop 09/20/18 at 13:07; Status DC Aspirin (Children'S Aspirin) 81 mg DAILYWBKFT PO ; Start 09/10/18 at 08:00; Stop 09/12/18 at 09:56; Status DC Atorvastatin Calcium (Lipitor) 40 mg QHS PO Last administered on 09/09/18at 21: 11; Start 09/09/18 at 21:00; Stop 09/12/18 at 09:56; Status DC Atorvastatin Calcium (Lipitor) 40 mg QHS PO ; Start 09/09/18 at 21:00; Status UNV Duloxetine HCl (Cymbalta) 30 mg BID PO Last administered on 09/09/18at 21:12; Start 09/09/18 at 21:00; Stop 09/11/18 at 13:13; Status DC Ferrous Sulfate (Feosol) 325 mg DAILYAC PO ; Start 09/10/18 at 07:30; Stop at 13:13; Status DC Finasteride (Proscar) 5 mg DAILY PO ; Start 09/10/18 at 09:00; Stop 09/12/18 at 09:56; Status DC Lorazepam (Ativan) 0.5 mg PRN DAILY PRN PO ANXIETY / AGITATION; Start at 17:15; Stop 09/10/18 at 10:35; Status DC Metoprolol Tartrate (Lopressor) 25 mg BID PO Last administered on 09/09/18at 21 :12; Start 09/09/18 at 21:00; Stop 09/11/18 at 13:19; Status DC Pantoprazole Sodium (Protonix) 40 mg DAILYAC PO ; Start 09/10/18 at 07:30; Stop 09/11/18 at 12:20; Status DC Tamsulosin HCl (Flomax) 0.4 mg DAILY PO ; Start 09/10/18 at 09:00; Stop at 09:56; Status DC Tramadol HCl (Ultram) 50 mg PRN Q6HRS PRN PO MODERATE PAIN; Start 09/09/18 at 17:15; Stop 09/15/18 at 12:06; Status DC Budesonide (Pulmicort) 0.5 mg RTBID NEB Last administered on 09/12/18at 07:47; Start 09/09/18 at 20:00; Stop 09/12/18 at 11:45; Status DC Diltiazem HCl (Cardizem 24hr Cd) 120 mg DAILY PO ; Start 09/10/18 at 09:00; Stop 09/11/18 at 13:13; Status DC Insulin Glargine (Lantus) 10 units QHS SQ Last administered on 09/09/18at 21:49 ; Start 09/09/18 at 21:00; Stop 09/10/18 at 10:35; Status DC Levothyroxine Sodium (Synthroid) 50 mcg DAILY06 PO ; Start 09/10/18 at 06:00; Stop 09/12/18 at 09:56; Status DC Lidocaine (Lidoderm) 1 patch DAILY TD Last administered on 09/22/18at 08:01; Start 09/10/18 at 09:00 Lisinopril (Prinivil) 2.5 mg DAILY PO ; Start 09/10/18 at 09:00; Stop at 13:13; Status DC Non-Formulary Medication (Tiotropium Malone (Spiriva)) 2 inh DAILY IH ; Start 09/10/18 at 09:00; Status UNV Warfarin Sodium (Coumadin) 7.5 mg DAILY16 PO ; Start 09/09/18 at 18:00; Stop 09/10/18 at 16:34; Status DC Insulin Human Lispro (HumaLOG) 0-9 UNITS TIDWMEALS SQ ; Start 09/10/18 at 08:00 ; Stop 09/11/18 at 13:13; Status DC Dextrose (Dextrose 50%-Water Syringe) 12.5 gm PRN Q15MIN PRN IV SEE COMMENTS; Start 09/09/18 at 17:15; Stop 09/12/18 at 08:17; Status DC Miscellaneous (Lidoderm Patch Removal) 1 ea QHS MC Last administered on at 20:36; Start 09/09/18 at 21:00 Albuterol/ Ipratropium (Duoneb) 3 ml RTQID NEB Last administered on 09/22/18at 07:54; Start 09/09/18 at 20:00 Warfarin Sodium (Coumadin Per Physician) 1 each PRN DAILY PRN MC SEE COMMENTS Last administered on 09/11/18at 11:21; Start 09/09/18 at 17:30; Stop 09/11/18 at 13:13; Status DC Sodium Chloride 1,000 ml @ 75 mls/hr [id number] IV ; Start 09/09/18 at 17:30; Stop 09/10/18 at 10:35; Status DC Lorazepam (Ativan) 2 mg 1X ONCE IV Last administered on 09/09/18at 17:30; Start 09/09/18 at 17:30; Stop 09/09/18 at 17:31; Status DC Clonidine HCl (Catapres) 0.1 mg PRN Q1HR PRN PO SBP > 180 or DBP > 100, MRX3; Start 09/09/18 at 17:30 Lorazepam (Ativan) 2 mg PRN Q15MIN PRN IV CIWA 8-14 Last administered on at 20:38; Start 09/09/18 at 17:30; Stop 09/15/18 at 12:06; Status DC Albuterol/ Ipratropium (Duoneb) 3 ml 1X ONCE NEB ; Start 09/09/18 at 17:30; Stop 09/09/18 at 17:31; Status DC Levofloxacin/ Dextrose 150 ml @ 100 mls/hr 1X ONCE IV Last administered on at 21:03; Start 09/09/18 at 17:30; Stop 09/09/18 at 18:59; Status DC Albuterol/ Ipratropium (Duoneb) 3 ml RTQID NEB ; Start 09/09/18 at 20:00; Status UNV Guaifenesin (Robitussin Dm) 10 ml PRN Q6HRS PRN PO COUGH; Start 09/09/18 at 19 :00 Levofloxacin/ Dextrose (Levaquin Per Pharmacy) 1 each PRN DAILY PRN MC SEE COMMENTS; Start 09/09/18 at 19:00; Stop 09/11/18 at 09:24; Status DC Heparin Sodium (Porcine) (Heparin Sodium) 5,000 unit Q8HRS SQ Last administered on 09/11/18at 05:48; Start 09/09/18 at 22:00; Stop 09/12/18 at 11 :01; Status DC Levofloxacin/ Dextrose 50 ml @ 50 mls/hr Q24H IV ; Start 09/10/18 at 20:00; Stop 09/10/18 at 20:00; Status DC Haloperidol Lactate (Haldol Inj) 5 mg PRN Q6HRS PRN IVP AGITATION Last administered on 09/15/18at 23:00; Start 09/10/18 at 01:15; Stop 09/19/18 at 15 :15; Status DC Famotidine (Pepcid Vial) 20 mg QHS IVP Last administered on 09/12/18at 20:47; Start 09/10/18 at 21:00; Stop 09/13/18 at 08:50; Status DC Methylprednisolone Sodium Succinate (SOLU-Medrol 40MG VIAL) 40 mg Q12HR IV Last administered on 09/14/18at 08:24; Start 09/10/18 at 09:00; Stop 09/14/18 at 12:49; Status DC Chlordiazepoxide (Librium) 50 mg PRN Q6HRS PRN PO ANXIETY/AGITATION, 2ND CHOICE ; Start 09/10/18 at 10:45; Stop 09/17/18 at 14:33; Status DC Lorazepam (Ativan) 1 mg PRN DAILY PRN PO ANXIETY / AGITATION, 1ST CHOIC; Start 09/10/18 at 10:45; Stop 09/15/18 at 12:06; Status DC Dexmedetomidine HCl 200 mcg/ Sodium Chloride 50 ml @ 0 mls/hr CONT PRN IV PER PROTOCOL Last administered on 09/15/18at 09:03; Start 09/10/18 at 13:30; Stop 09/15/18 at 12:06; Status DC Sodium Chloride 500 ml @ 500 mls/hr 1X PRN PRN IV SEE COMMENTS; Start at 13:30 Atropine Sulfate (ATROPINE 0.5mg SYRINGE) 0.5 mg PRN Q5MIN PRN IV SEE COMMENTS ; Start 09/10/18 at 13:30; Stop 09/12/18 at 13:15; Status DC Levofloxacin/ Dextrose 100 ml @ 100 mls/hr Q24H IV Last administered on at 20:48; Start 09/10/18 at 20:00; Stop 09/11/18 at 09:36; Status DC Enalaprilat (Vasotec Inj) 1.25 mg PRN Q4HRS PRN IVP HYPERTENSION, 1ST CHOICE Last administered on 09/16/18at 20:51; Start 09/11/18 at 02:45 Vancomycin HCl (Vanco Per Pharmacy) 1 each PRN DAILY PRN MC SEE COMMENTS Last administered on 09/14/18at 12:16; Start 09/11/18 at 09:15; Stop 09/15/18 at 10 :49; Status DC Vancomycin HCl 2 gm/Sodium Chloride 500 ml @ 250 mls/hr 1X ONCE IV Last administered on 09/11/18at 10:40; Start 09/11/18 at 09:30; Stop 09/11/18 at 11 :29; Status DC Doxycycline Hyclate (Vibra-Tab) 100 mg BID PO ; Start 09/11/18 at 10:00; Stop 09/11/18 at 15:16; Status DC Cefepime HCl (Maxipime) 1 gm Q8H IVP Last administered on 09/19/18at 01:35; Start 09/11/18 at 10:00; Stop 09/19/18 at 08:14; Status DC Vancomycin HCl 1.75 gm/Sodium Chloride 500 ml @ 250 mls/hr Q12H IV Last administered on 09/12/18at 22:58; Start 09/11/18 at 23:00; Stop 09/12/18 at 23 :59; Status DC Vancomycin HCl (Vancomycin Trough Level) 1 each 1X ONCE MC Last administered on 09/12/18at 22:26; Start 09/12/18 at 22:30; Stop 09/12/18 at 22:31; Status DC Pantoprazole Sodium (PROTONIX VIAL for IV PUSH) 40 mg DAILYAC IVP Last administered on 09/22/18at 08:00; Start 09/11/18 at 12:30 Multivitamins 10 ml/Thiamine HCl 100 mg/Folic Acid 1 mg/Sodium Chloride 1,011.2 ml @ 0 mls/hr DAILY IV Last administered on 09/22/18at 08:02; Start 09/11/18 at 14:00 Insulin Human Lispro (HumaLOG) 0-7 UNITS TIDWMEALS SQ ; Start 09/11/18 at 17:00 ; Stop 09/11/18 at 17:00; Status DC Dextrose (Dextrose 50%-Water Syringe) 12.5 gm PRN Q15MIN PRN IV SEE COMMENTS; Start 09/11/18 at 13:00 Insulin Human Lispro (HumaLOG) 0-7 UNITS Q6HRS SQ Last administered on at 05:41; Start 09/11/18 at 18:00 Levothyroxine Sodium 0.025 mcg/ Sodium Chloride 5 ml @ 0 mls/hr DAILY IVP ; Start 09/11/18 at 13:30; Stop 09/11/18 at 13:52; Status DC Magnesium Sulfate 50 ml @ 25 mls/hr 1X ONCE IV Last administered on at 15:40; Start 09/11/18 at 13:30; Stop 09/11/18 at 15:29; Status DC Levothyroxine Sodium 25 mcg/ Sodium Chloride 5 ml @ 0 mls/hr DAILY IVP Last administered on 09/21/18at 08:30; Start 09/11/18 at 13:52; Stop 09/21/18 at 13 :13; Status DC Levothyroxine Sodium 25 mcg/ Sodium Chloride 5 ml @ 0 mls/hr 1X ONCE IVP Last administered on 09/11/18at 14:45; Start 09/11/18 at 14:45; Stop 09/11/18 at 14 :46; Status DC Doxycycline Hyclate 100 mg/ Dextrose 100 ml @ 50 mls/hr Q12HR IV Last administered on 09/19/18at 07:55; Start 09/11/18 at 16:00; Stop 09/19/18 at 08 :14; Status DC Magnesium Sulfate 50 ml @ 25 mls/hr 1X ONCE IV Last administered on at 12:56; Start 09/12/18 at 11:30; Stop 09/12/18 at 13:29; Status DC Amino Acids/ Glycerin/ Electrolytes 1,000 ml @ 80 mls/hr [id number] IV Last administered on 09/22/18at 06:38; Start 09/12/18 at 11:30 Haloperidol Lactate (Haldol Inj) 10 mg Q8HRS IVP Last administered on at 06:02; Start 09/12/18 at 14:00; Stop 09/16/18 at 13:14; Status DC Dexmedetomidine HCl 200 mcg/ Sodium Chloride 50 ml @ 0 mls/hr CONT PRN IV PER PROTOCOL; Start 09/12/18 at 13:15; Stop 09/12/18 at 14:04; Status DC Sodium Chloride 500 ml @ 500 mls/hr 1X PRN PRN IV SEE COMMENTS; Start at 13:15 Atropine Sulfate (ATROPINE 0.5mg SYRINGE) 0.5 mg PRN Q5MIN PRN IV SEE COMMENTS ; Start 09/12/18 at 13:15; Stop 09/20/18 at 13:07; Status DC Morphine Sulfate (Morphine Sulfate) 2 mg PRN Q2HR PRN IV PAIN Last administered on 09/14/18at 05:10; Start 09/12/18 at 13:15; Stop 09/14/18 at 12 :57; Status DC Metoprolol Tartrate (Lopressor) 25 mg BID PO ; Start 09/12/18 at 17:00; Stop 09/12/18 at 17:00; Status DC Metoprolol Tartrate (Lopressor Vial) 5 mg Q6HRS IVP Last administered on at 06:38; Start 09/12/18 at 18:00 Vancomycin HCl 2 gm/Sodium Chloride 500 ml @ 250 mls/hr Q12H IV Last administered on 09/14/18at 23:26; Start 09/13/18 at 11:00; Stop 09/15/18 at 10 :49; Status DC Vancomycin HCl (Vancomycin Trough Level) 1 each 1X ONCE MC Last administered on 09/14/18at 10:30; Start 09/14/18 at 10:30; Stop 09/14/18 at 10:31; Status DC Nitroglycerin (Nitro-Bid Oint) 1 inch Q6HRS TP Last administered on 09/21/18at 18:54; Start 09/14/18 at 08:30 Aspirin (Aspirin) 300 mg DAILY HI Last administered on 09/22/18at 08:02; Start 09/14/18 at 11:00 Methylprednisolone Sodium Succinate (SOLU-Medrol 40MG VIAL) 40 mg DAILY IV Last administered on 09/20/18at 08:15; Start 09/15/18 at 09:00; Stop 09/20/18 at 12:45; Status DC Morphine Sulfate (Morphine Sulfate) 2 mg PRN Q2HR PRN IV PAIN Last administered on 09/17/18at 02:01; Start 09/14/18 at 13:00; Stop 09/20/18 at 13 :02; Status DC Lorazepam (Ativan) 2 mg PRN Q4HRS PRN IV ANXIETY / AGITATION Last administered on 09/15/18at 23:00; Start 09/15/18 at 22:45; Stop 09/16/18 at 13:14; Status DC Haloperidol Lactate (Haldol Inj) 5 mg Q8HRS IVP Last administered on at 06:11; Start 09/16/18 at 14:00; Stop 09/17/18 at 09:42; Status DC Chlordiazepoxide (Librium) 50 mg Q6H PO Last administered on 09/18/18at 08:26; Start 09/17/18 at 15:00; Stop 09/18/18 at 12:41; Status DC Chlordiazepoxide (Librium) 50 mg PRN Q1HR PRN PO For CIWA 8-14; Start at 14:30; Stop 09/20/18 at 13:07; Status DC Chlordiazepoxide (Librium) 100 mg PRN Q1HR PRN PO For CIWA 15 or greater; Start 09/17/18 at 14:30; Stop 09/20/18 at 13:02; Status DC Haloperidol Lactate (Haldol Inj) 5 mg PRN Q4HRS PRN IVP Hallucinatns,Confusn, Delirium Last administered on 09/21/18at 05:02; Start 09/17/18 at 14:30 Nitroglycerin/ Dextrose 250 ml @ 1.5 mls/hr CONT PRN IV SEE I/O RECORD; Start 09/17/18 at 15:30; Stop 09/19/18 at 10:52; Status DC Lorazepam (Ativan) 1 mg PRN Q4HRS PRN IV ANXIETY / AGITATION; Start 09/17/18 at 15:45; Stop 09/20/18 at 13:02; Status DC Lorazepam (Ativan) 2 mg PRN Q4HRS PRN IV ANXIETY / AGITATION Last administered on 09/20/18at 08:14; Start 09/17/18 at 16:00; Stop 09/20/18 at 13:02; Status DC Chlordiazepoxide (Librium) 25 mg Q6H PO Last administered on 09/20/18at 08:10; Start 09/18/18 at 15:00; Stop 09/20/18 at 12:45; Status DC Enoxaparin Sodium (Lovenox 40mg Syringe) 40 mg Q24H SQ Last administered on at 13:30; Start 09/19/18 at 12:00 Chlordiazepoxide (Librium) 25 mg PRN Q6HRS PRN PO withdrawals only; Start at 12:45; Stop 09/20/18 at 13:02; Status DC Methylprednisolone Sodium Succinate (SOLU-Medrol 40MG VIAL) 20 mg DAILY IV Last administered on 09/22/18at 08:01; Start 09/21/18 at 09:00 Levothyroxine Sodium 25 mcg/ Sodium Chloride 5 ml @ 0 mls/hr Q3DAYS IVP ; Start 09/24/18 at 09:00 Active Scripts Active Pantoprazole Sodium 40 Mg Tablet.dr 40 Mg PO DAILYAC Lidoderm (Lidocaine) 700 Mg Adh..patch 1 Patch TD DAILY 12hours on, 12 hours off Lisinopril 2.5 Mg Tablet 2.5 Mg PO DAILY Feosol (Ferrous Sulfate) 325 Mg Tablet 325 Mg PO DAILYAC Children's Aspirin (Aspirin) 81 Mg Tab.chew 81 Mg PO DAILYWBKFT Reported Ventolin Hfa Inhaler (Albuterol Sulfate) 18 Gm Hfa.aer.ad 2 Puff INH Q4HRS Mirtazapine 45 Mg Tablet 1 Tab PO QHS Glipizide 5 Mg Tablet 1 Tab PO BID Metformin Hcl 1,000 Mg Tablet 1,000 Mg PO BIDWMEALS Lantus (Insulin Glargine,Hum.rec.anlog) 100 Unit/1 Ml Vial 50 Unit SQ HS NITROGLYCERIN SubLingual (Nitroglycerin) 0.4 Mg Tab.subl 0.4 Mg SL PRN Q5MIN PRN Fluoxetine Hcl 20 Mg Capsule 3 Cap PO DAILY Novolin R (Insulin Regular, Human) 100 Unit/1 Ml Vial 100 Unit IJ QIDACHS Vitamin D3 (Cholecalciferol (Vitamin D3)) 1,000 Unit Tablet 1 Tab PO TID Vitamin B-12 (Cyanocobalamin (Vitamin B-12)) 1,000 Mcg Tablet 1 Tab PO DAILY Gemfibrozil 600 Mg Tablet 0.5 Tab PO BID Pepcid (Famotidine) 20 Mg Tablet 10 Mg PO BID Cardizem Cd (Diltiazem Hcl) 240 Mg Cap.er.24h 1 Cap PO DAILY Robaxin (Methocarbamol) 500 Mg Tablet 1 Tab PO BID PRN Niaspan (Niacin) 500 Mg Tab.er.24h 1 Tab PO QHS Gabapentin 600 Mg Tablet 300 Mg PO QID Symbicort 80-4.5 Mcg Inhaler (Budesonide/Formoterol Fumarate) 10.2 Gm Hfa.aer.ad 2 Puff IH BID Finasteride 5 Mg Tablet 1 Tab PO DAILY Levothyroxine Sodium 50 Mcg Tablet 1 Tab PO DAILY Tamsulosin Hcl 0.4 Mg Cap.er.24h 0.4 Mg PO BID Spiriva (Tiotropium Malone) 18 Mcg Cap.w.dev 2 Inh IH DAILY Hydrocodone-Apap 7.5-325 (Hydrocodone Bit/Acetaminophen) 1 Each Tablet 1 Tab PO Q4HRS PRN Metoprolol Tartrate 25 Mg Tablet 1 Tab PO BID Vitals/I & O Vital Sign - Last 24 Hours 09/21/18 09/21/18 09/21/18 09/21/18 10:30 11:45 13:31 13:31 Temp 97.8 97.8 Pulse 74 74 74 Resp 22 B/P (MAP) 155/86 (109) 155/86 155/86 Pulse Ox 92 94 O2 Delivery Room Air Room Air 09/21/18 09/21/18 09/21/18 09/21/18 15:28 16:51 18:54 18:54 Temp 96.0 96.0 Pulse 75 75 75 Resp 20 B/P (MAP) 176/78 (110) 176/78 176/78 Pulse Ox 90 94 O2 Delivery Room Air Room Air 09/21/18 09/21/18 09/21/18 09/21/18 19:09 20:01 21:15 23:00 Temp 96.6 96.4 96.6 96.4 Pulse 76 71 B/P (MAP) 175/100 (125) 188/108 (134) Pulse Ox 95 96 94 O2 Delivery Room Air Nasal Cannula Room Air Room Air O2 Flow Rate 2.0 2.0 2.0 09/22/18 09/22/18 09/22/18 09/22/18 00:00 02:51 06:38 07:27 Temp 97.5 97.5 97.5 97.5 Pulse 77 77 77 77 Resp 24 B/P (MAP) 161/92 161/92 (115) 161/92 141/57 (85) Pulse Ox 92 93 O2 Delivery Room Air Room Air O2 Flow Rate 2.0 09/22/18 09/22/18 07:55 08:00 Pulse Ox 93 O2 Delivery Room Air Room Air Intake and Output 09/21/18 09/21/18 09/22/18 15:01 23:01 07:01 Intake Total 0 ml Output Total 275 ml 280 ml Balance 0 ml -275 ml -280 ml WILLEM CORRAL MD Sep 22, 2018 08:38
--- NOTE | 2018-09-22 10:33 | PDOC ---
PULMONARY PROGRESS NOTES Subjective pt sleepy from medication no resp distress Vitals Vital Signs Date Time Temp Pulse Resp B/P (MAP) Pulse Ox O2 Delivery O2 Flow Rate FiO2 09/22/18 08:00 Room Air 09/22/18 07:55 93 09/22/18 07:27 97.5 77 24 141/57 (85) 97.5 09/22/18 02:51 2.0 ROS: No Nausea, No Chest Pain, No Abdominal Pain, No Increase Cough General: Alert Lungs: Crackles Cardiovascular: S1, S2 Abdomen: Soft, Other (OBESE) Extremities: Other (EDEMA) Skin: Warm Labs Laboratory Tests Test 09/20/18 14:43 09/20/18 18:05 09/20/18 23:07 09/21/18 06:02 Glucose (Fingerstick) 175 mg/dL (70-99) 144 mg/dL (70-99) 106 mg/dL (70-99) 129 mg/dL (70-99) Test 09/21/18 12:09 09/21/18 16:17 09/22/18 00:50 09/22/18 06:34 Glucose (Fingerstick) 151 mg/dL (70-99) 134 mg/dL (70-99) 93 mg/dL (70-99) 118 mg/dL (70-99) Laboratory Tests Test 09/21/18 12:09 09/21/18 16:17 09/22/18 00:50 09/22/18 06:34 Glucose (Fingerstick) 151 mg/dL (70-99) 134 mg/dL (70-99) 93 mg/dL (70-99) 118 mg/dL (70-99) Medications Active Scripts Medications Dose Route/Sig Max Daily Dose Days Date Category Dose Instructions Ventolin Hfa Inhaler (Albuterol Sulfate) 18 Gm Hfa.aer.ad 2 Puff INH Q4HRS 09/11/18 Reported Mirtazapine 45 Mg Tablet 1 Tab PO QHS 09/11/18 Reported Glipizide 5 Mg Tablet 1 Tab PO BID 09/11/18 Reported Metformin Hcl 1,000 Mg Tablet 1,000 Mg PO BIDWMEALS 09/11/18 Reported Lantus (Insulin Glargine,Hum.rec.anlog) 100 Unit/1 Ml Vial 50 Unit SQ HS 09/11/18 Reported NITROGLYCERIN SubLingual (Nitroglycerin) 0.4 Mg Tab.subl 0.4 Mg SL PRN Q5MIN PRN 09/11/18 Reported Fluoxetine Hcl 20 Mg Capsule 3 Cap PO DAILY 09/11/18 Reported Novolin R (Insulin Regular, Human) 100 Unit/1 Ml Vial 100 Unit IJ QIDACHS 09/11/18 Reported Vitamin D3 (Cholecalciferol (Vitamin D3)) 1,000 Unit Tablet 1 Tab PO TID 09/11/18 Reported Vitamin B-12 (Cyanocobalamin (Vitamin B-12)) 1,000 Mcg Tablet 1 Tab PO DAILY 09/11/18 Reported Gemfibrozil 600 Mg Tablet 0.5 Tab PO BID 09/11/18 Reported Pepcid (Famotidine) 20 Mg Tablet 10 Mg PO BID 09/11/18 Reported Cardizem Cd (Diltiazem Hcl) 240 Mg Cap.er.24h 1 Cap PO DAILY 09/11/18 Reported Robaxin (Methocarbamol) 500 Mg Tablet 1 Tab PO BID PRN 09/11/18 Reported Niaspan (Niacin) 500 Mg Tab.er.24h 1 Tab PO QHS 09/11/18 Reported Gabapentin 600 Mg Tablet 300 Mg PO QID 09/11/18 Reported Pantoprazole Sodium 40 Mg Tablet.dr 40 Mg PO DAILYAC 07/16/16 Rx Lidoderm (Lidocaine) 700 Mg Adh..patch 1 Patch TD DAILY 07/16/16 Rx 12hours on, 12 hours off Lisinopril 2.5 Mg Tablet 2.5 Mg PO DAILY 07/16/16 Rx Feosol (Ferrous Sulfate) 325 Mg Tablet 325 Mg PO DAILYAC 07/16/16 Rx Children's Aspirin (Aspirin) 81 Mg Tab.chew 81 Mg PO DAILYWBKFT 07/16/16 Rx Symbicort 80-4.5 Mcg Inhaler (Budesonide/Formoterol Fumarate) 10.2 Gm Hfa.aer.ad 2 Puff IH BID 07/09/16 Reported Finasteride 5 Mg Tablet 1 Tab PO DAILY 07/09/16 Reported Levothyroxine Sodium 50 Mcg Tablet 1 Tab PO DAILY 07/09/16 Reported Tamsulosin Hcl 0.4 Mg Cap.er.24h 0.4 Mg PO BID 07/09/16 Reported Spiriva (Tiotropium Maxie) 18 Mcg Cap.w.dev 2 Inh IH DAILY 07/09/16 Reported Hydrocodone-Apap 7.5-325 (Hydrocodone Bit/Acetaminophen) 1 Each Tablet 1 Tab PO Q4HRS PRN 07/09/16 Reported Metoprolol Tartrate 25 Mg Tablet 1 Tab PO BID 07/09/16 Reported Comments IMPRESSION: Mild patchy opacities in the right lung base may be secondary to subsegmental atelectasis or pneumonia. Findings of COPD. Impression . IMPRESSION: 1. Acute hypoxemic respiratory failure, multifactorial in etiolog 2. Abnormal chest x-ray/PNEUMONIA 3. Acute exacerbation of chronic obstructive pulmonary disease. 4. Acute bronchitis versus pneumonia. 5. METABOLIC/TOXIC Encephalopathy POA 6. Acute kidney injury. 7. Obstructive sleep apnea-hypopnea syndrome. 8. CAD S/P CABG 9. Hypertension. 10. BACTEREMIA/SEPSIS PER ID Impression: Right internal jugular catheter terminates at the expected level of the superior aspect of the superior vena cava. No pneumothorax. Pulmonary vasculature congestion. Plan . 1. patient to transfer to LT[facility] today 2. Spoke with , need to find balance between sedation ans over sedation. 3. PRN BiPAP ARLYN FENTON MD Sep 22, 2018 10:33
--- NOTE | 2018-09-22 10:35 | PDOC ---
PROGRESS NOTES Assessment Problems Medical Problems: (1) Acute kidney injury Status: Acute (2) Alcohol withdrawal Status: Acute (3) Pneumonia Status: Acute (4) Rhabdomyolysis Status: Acute Toxic encephalopathy due to narcotics. Hypertensive encephalopathy. Alcohol intoxication and component of Wernicke's Delirium tremens, hallucinations, resolved Brain MRI negative, EEG negative Tremors, improved, off Haldol Dysphagia Plan Chlordiazepoxide, scheduled dose, watch for sedation If dysphagia persists, may need PEG Transfer to geriatric psychiatry or SNU after we can resolve his nutrition issues Subjective Denies pain Objective Vital Signs Date Time Temp Pulse Resp B/P (MAP) Pulse Ox O2 Delivery O2 Flow Rate FiO2 09/22/18 08:00 Room Air 09/22/18 07:55 93 09/22/18 07:27 97.5 77 24 141/57 (85) 97.5 09/22/18 02:51 2.0 Intake and Output 09/22/18 07:01 Intake Total 0 ml Output Total 555 ml Balance -555 ml Intake Oral 0 ml Output Urine Total 555 ml # Voids 7 PHYSICAL EXAM Alert, oriented only to person. Today is actually the most alert I have seen him PERRL. EOMI. CN: no focal findings. Muscle tone: normal. Muscle strength: 3-4/5 DTR: 1+ Plantar reflex: Flexor Gait: not examined in bed. Sensory exam: no abnormal findings. Cerebellar: No limb ataxia, no tremor Review of Relevant I have reviewed the following items barby (where applicable) has been applied. Labs Laboratory Tests Test 09/20/18 14:43 09/20/18 18:05 09/20/18 23:07 09/21/18 06:02 Glucose (Fingerstick) 175 mg/dL (70-99) 144 mg/dL (70-99) 106 mg/dL (70-99) 129 mg/dL (70-99) Test 09/21/18 12:09 09/21/18 16:17 09/22/18 00:50 09/22/18 06:34 Glucose (Fingerstick) 151 mg/dL (70-99) 134 mg/dL (70-99) 93 mg/dL (70-99) 118 mg/dL (70-99) Laboratory Tests Test 09/21/18 12:09 09/21/18 16:17 09/22/18 00:50 09/22/18 06:34 Glucose (Fingerstick) 151 mg/dL (70-99) 134 mg/dL (70-99) 93 mg/dL (70-99) 118 mg/dL (70-99) Microbiology 09/09/18 Blood Culture - Final, Complete NO GROWTH AFTER 5 DAYS Medications Current Medications Thiamine Mononitrate (Vitamin B-1) 100 mg 1X STAT PO Last administered on at 14:50; Start 09/09/18 at 14:38; Stop 09/09/18 at 14:41; Status DC Folic Acid (Folic Acid) 1 mg 1X STAT PO Last administered on 09/09/18at 14:50 ; Start 09/09/18 at 14:38; Stop 09/09/18 at 14:41; Status DC Sodium Chloride 1,000 ml @ 1,000 mls/hr 1X ONCE IV Last administered on 09/09at 14:50; Start 09/09/18 at 15:00; Stop 09/09/18 at 15:59; Status DC Labetalol HCl (Normodyne Iv Push) 20 mg 1X ONCE IVP Last administered on 09/09at 16:53; Start 09/09/18 at 17:00; Stop 09/09/18 at 17:01; Status DC Chlordiazepoxide (Librium) 25 mg PRN Q6HRS PRN PO ANXIETY / AGITATION Last administered on 09/09/18at 22:35; Start 09/09/18 at 17:00; Stop 09/10/18 at 10 :35; Status DC Acetaminophen (Tylenol) 500 mg PRN Q6HRS PRN PO MILD PAIN / TEMP; Start at 17:00 Morphine Sulfate (Morphine Sulfate) 2 mg PRN Q2HR PRN IV MODERATE TO SEVERE PAIN Last administered on 09/12/18at 11:14; Start 09/09/18 at 17:00; Stop at 11:45; Status DC Sodium Chloride 1,000 ml @ 100 mls/hr Q10H IV Last administered on 09/09/18at 19:30; Start 09/09/18 at 18:00; Stop 09/10/18 at 10:35; Status DC Multivitamins (Thera M Plus) 1 tab DAILY PO ; Start 09/10/18 at 09:00; Stop at 13:13; Status DC Thiamine Mononitrate (Vitamin B-1) 100 mg DAILY PO ; Start 09/10/18 at 09:00; Stop 09/11/18 at 13:13; Status DC Folic Acid (Folic Acid) 1 mg DAILY PO ; Start 09/10/18 at 09:00; Stop at 13:13; Status DC Labetalol HCl (Normodyne Iv Push) 20 mg PRN Q2HR PRN IVP HYPERTENSION, 2ND CHOICE Last administered on 09/17/18at 14:47; Start 09/09/18 at 17:00 Nicotine (Nicoderm Cq 21mg) 1 patch PRN DAILY PRN TD SMOKING CESSATION; Start 09/09/18 at 17:15; Stop 09/11/18 at 13:13; Status DC Oxycodone/ Acetaminophen (Percocet 5/325) 1 tab PRN Q4HRS PRN PO SEVERE PAIN; Start 09/09/18 at 17:15; Stop 09/15/18 at 12:06; Status DC Diphenhydramine HCl (Benadryl) 25 mg PRN QHS PRN PO INSOMNIA; Start 09/09/18 at 17:15; Stop 09/20/18 at 13:07; Status DC Aspirin (Children'S Aspirin) 81 mg DAILYWBKFT PO ; Start 09/10/18 at 08:00; Stop 09/12/18 at 09:56; Status DC Atorvastatin Calcium (Lipitor) 40 mg QHS PO Last administered on 09/09/18at 21: 11; Start 09/09/18 at 21:00; Stop 09/12/18 at 09:56; Status DC Atorvastatin Calcium (Lipitor) 40 mg QHS PO ; Start 09/09/18 at 21:00; Status UNV Duloxetine HCl (Cymbalta) 30 mg BID PO Last administered on 09/09/18at 21:12; Start 09/09/18 at 21:00; Stop 09/11/18 at 13:13; Status DC Ferrous Sulfate (Feosol) 325 mg DAILYAC PO ; Start 09/10/18 at 07:30; Stop at 13:13; Status DC Finasteride (Proscar) 5 mg DAILY PO ; Start 09/10/18 at 09:00; Stop 09/12/18 at 09:56; Status DC Lorazepam (Ativan) 0.5 mg PRN DAILY PRN PO ANXIETY / AGITATION; Start at 17:15; Stop 09/10/18 at 10:35; Status DC Metoprolol Tartrate (Lopressor) 25 mg BID PO Last administered on 09/09/18at 21 :12; Start 09/09/18 at 21:00; Stop 09/11/18 at 13:19; Status DC Pantoprazole Sodium (Protonix) 40 mg DAILYAC PO ; Start 09/10/18 at 07:30; Stop 09/11/18 at 12:20; Status DC Tamsulosin HCl (Flomax) 0.4 mg DAILY PO ; Start 09/10/18 at 09:00; Stop at 09:56; Status DC Tramadol HCl (Ultram) 50 mg PRN Q6HRS PRN PO MODERATE PAIN; Start 09/09/18 at 17:15; Stop 09/15/18 at 12:06; Status DC Budesonide (Pulmicort) 0.5 mg RTBID NEB Last administered on 09/12/18at 07:47; Start 09/09/18 at 20:00; Stop 09/12/18 at 11:45; Status DC Diltiazem HCl (Cardizem 24hr Cd) 120 mg DAILY PO ; Start 09/10/18 at 09:00; Stop 09/11/18 at 13:13; Status DC Insulin Glargine (Lantus) 10 units QHS SQ Last administered on 09/09/18at 21:49 ; Start 09/09/18 at 21:00; Stop 09/10/18 at 10:35; Status DC Levothyroxine Sodium (Synthroid) 50 mcg DAILY06 PO ; Start 09/10/18 at 06:00; Stop 09/12/18 at 09:56; Status DC Lidocaine (Lidoderm) 1 patch DAILY TD Last administered on 09/22/18at 08:01; Start 09/10/18 at 09:00 Lisinopril (Prinivil) 2.5 mg DAILY PO ; Start 09/10/18 at 09:00; Stop at 13:13; Status DC Non-Formulary Medication (Tiotropium Adair (Spiriva)) 2 inh DAILY IH ; Start 09/10/18 at 09:00; Status UNV Warfarin Sodium (Coumadin) 7.5 mg DAILY16 PO ; Start 09/09/18 at 18:00; Stop 09/10/18 at 16:34; Status DC Insulin Human Lispro (HumaLOG) 0-9 UNITS TIDWMEALS SQ ; Start 09/10/18 at 08:00 ; Stop 09/11/18 at 13:13; Status DC Dextrose (Dextrose 50%-Water Syringe) 12.5 gm PRN Q15MIN PRN IV SEE COMMENTS; Start 09/09/18 at 17:15; Stop 09/12/18 at 08:17; Status DC Miscellaneous (Lidoderm Patch Removal) 1 ea QHS MC Last administered on at 20:36; Start 09/09/18 at 21:00 Albuterol/ Ipratropium (Duoneb) 3 ml RTQID NEB Last administered on 09/22/18at 07:54; Start 09/09/18 at 20:00 Warfarin Sodium (Coumadin Per Physician) 1 each PRN DAILY PRN MC SEE COMMENTS Last administered on 09/11/18at 11:21; Start 09/09/18 at 17:30; Stop 09/11/18 at 13:13; Status DC Sodium Chloride 1,000 ml @ 75 mls/hr [id number] IV ; Start 09/09/18 at 17:30; Stop 09/10/18 at 10:35; Status DC Lorazepam (Ativan) 2 mg 1X ONCE IV Last administered on 09/09/18at 17:30; Start 09/09/18 at 17:30; Stop 09/09/18 at 17:31; Status DC Clonidine HCl (Catapres) 0.1 mg PRN Q1HR PRN PO SBP > 180 or DBP > 100, MRX3; Start 09/09/18 at 17:30 Lorazepam (Ativan) 2 mg PRN Q15MIN PRN IV CIWA 8-14 Last administered on at 20:38; Start 09/09/18 at 17:30; Stop 09/15/18 at 12:06; Status DC Albuterol/ Ipratropium (Duoneb) 3 ml 1X ONCE NEB ; Start 09/09/18 at 17:30; Stop 09/09/18 at 17:31; Status DC Levofloxacin/ Dextrose 150 ml @ 100 mls/hr 1X ONCE IV Last administered on at 21:03; Start 09/09/18 at 17:30; Stop 09/09/18 at 18:59; Status DC Albuterol/ Ipratropium (Duoneb) 3 ml RTQID NEB ; Start 09/09/18 at 20:00; Status UNV Guaifenesin (Robitussin Dm) 10 ml PRN Q6HRS PRN PO COUGH; Start 09/09/18 at 19 :00 Levofloxacin/ Dextrose (Levaquin Per Pharmacy) 1 each PRN DAILY PRN MC SEE COMMENTS; Start 09/09/18 at 19:00; Stop 09/11/18 at 09:24; Status DC Heparin Sodium (Porcine) (Heparin Sodium) 5,000 unit Q8HRS SQ Last administered on 09/11/18at 05:48; Start 09/09/18 at 22:00; Stop 09/12/18 at 11 :01; Status DC Levofloxacin/ Dextrose 50 ml @ 50 mls/hr Q24H IV ; Start 09/10/18 at 20:00; Stop 09/10/18 at 20:00; Status DC Haloperidol Lactate (Haldol Inj) 5 mg PRN Q6HRS PRN IVP AGITATION Last administered on 09/15/18at 23:00; Start 09/10/18 at 01:15; Stop 09/19/18 at 15 :15; Status DC Famotidine (Pepcid Vial) 20 mg QHS IVP Last administered on 09/12/18at 20:47; Start 09/10/18 at 21:00; Stop 09/13/18 at 08:50; Status DC Methylprednisolone Sodium Succinate (SOLU-Medrol 40MG VIAL) 40 mg Q12HR IV Last administered on 09/14/18at 08:24; Start 09/10/18 at 09:00; Stop 09/14/18 at 12:49; Status DC Chlordiazepoxide (Librium) 50 mg PRN Q6HRS PRN PO ANXIETY/AGITATION, 2ND CHOICE ; Start 09/10/18 at 10:45; Stop 09/17/18 at 14:33; Status DC Lorazepam (Ativan) 1 mg PRN DAILY PRN PO ANXIETY / AGITATION, 1ST CHOIC; Start 09/10/18 at 10:45; Stop 09/15/18 at 12:06; Status DC Dexmedetomidine HCl 200 mcg/ Sodium Chloride 50 ml @ 0 mls/hr CONT PRN IV PER PROTOCOL Last administered on 09/15/18at 09:03; Start 09/10/18 at 13:30; Stop 09/15/18 at 12:06; Status DC Sodium Chloride 500 ml @ 500 mls/hr 1X PRN PRN IV SEE COMMENTS; Start at 13:30 Atropine Sulfate (ATROPINE 0.5mg SYRINGE) 0.5 mg PRN Q5MIN PRN IV SEE COMMENTS ; Start 09/10/18 at 13:30; Stop 09/12/18 at 13:15; Status DC Levofloxacin/ Dextrose 100 ml @ 100 mls/hr Q24H IV Last administered on at 20:48; Start 09/10/18 at 20:00; Stop 09/11/18 at 09:36; Status DC Enalaprilat (Vasotec Inj) 1.25 mg PRN Q4HRS PRN IVP HYPERTENSION, 1ST CHOICE Last administered on 09/16/18at 20:51; Start 09/11/18 at 02:45 Vancomycin HCl (Vanco Per Pharmacy) 1 each PRN DAILY PRN MC SEE COMMENTS Last administered on 09/14/18at 12:16; Start 09/11/18 at 09:15; Stop 09/15/18 at 10 :49; Status DC Vancomycin HCl 2 gm/Sodium Chloride 500 ml @ 250 mls/hr 1X ONCE IV Last administered on 09/11/18at 10:40; Start 09/11/18 at 09:30; Stop 09/11/18 at 11 :29; Status DC Doxycycline Hyclate (Vibra-Tab) 100 mg BID PO ; Start 09/11/18 at 10:00; Stop 09/11/18 at 15:16; Status DC Cefepime HCl (Maxipime) 1 gm Q8H IVP Last administered on 09/19/18at 01:35; Start 09/11/18 at 10:00; Stop 09/19/18 at 08:14; Status DC Vancomycin HCl 1.75 gm/Sodium Chloride 500 ml @ 250 mls/hr Q12H IV Last administered on 09/12/18at 22:58; Start 09/11/18 at 23:00; Stop 09/12/18 at 23 :59; Status DC Vancomycin HCl (Vancomycin Trough Level) 1 each 1X ONCE MC Last administered on 09/12/18at 22:26; Start 09/12/18 at 22:30; Stop 09/12/18 at 22:31; Status DC Pantoprazole Sodium (PROTONIX VIAL for IV PUSH) 40 mg DAILYAC IVP Last administered on 09/22/18at 08:00; Start 09/11/18 at 12:30 Multivitamins 10 ml/Thiamine HCl 100 mg/Folic Acid 1 mg/Sodium Chloride 1,011.2 ml @ 0 mls/hr DAILY IV Last administered on 09/22/18at 08:02; Start 09/11/18 at 14:00 Insulin Human Lispro (HumaLOG) 0-7 UNITS TIDWMEALS SQ ; Start 09/11/18 at 17:00 ; Stop 09/11/18 at 17:00; Status DC Dextrose (Dextrose 50%-Water Syringe) 12.5 gm PRN Q15MIN PRN IV SEE COMMENTS; Start 09/11/18 at 13:00 Insulin Human Lispro (HumaLOG) 0-7 UNITS Q6HRS SQ Last administered on at 05:41; Start 09/11/18 at 18:00 Levothyroxine Sodium 0.025 mcg/ Sodium Chloride 5 ml @ 0 mls/hr DAILY IVP ; Start 09/11/18 at 13:30; Stop 09/11/18 at 13:52; Status DC Magnesium Sulfate 50 ml @ 25 mls/hr 1X ONCE IV Last administered on at 15:40; Start 09/11/18 at 13:30; Stop 09/11/18 at 15:29; Status DC Levothyroxine Sodium 25 mcg/ Sodium Chloride 5 ml @ 0 mls/hr DAILY IVP Last administered on 09/21/18at 08:30; Start 09/11/18 at 13:52; Stop 09/21/18 at 13 :13; Status DC Levothyroxine Sodium 25 mcg/ Sodium Chloride 5 ml @ 0 mls/hr 1X ONCE IVP Last administered on 09/11/18at 14:45; Start 09/11/18 at 14:45; Stop 09/11/18 at 14 :46; Status DC Doxycycline Hyclate 100 mg/ Dextrose 100 ml @ 50 mls/hr Q12HR IV Last administered on 09/19/18at 07:55; Start 09/11/18 at 16:00; Stop 09/19/18 at 08 :14; Status DC Magnesium Sulfate 50 ml @ 25 mls/hr 1X ONCE IV Last administered on at 12:56; Start 09/12/18 at 11:30; Stop 09/12/18 at 13:29; Status DC Amino Acids/ Glycerin/ Electrolytes 1,000 ml @ 80 mls/hr [id number] IV Last administered on 09/22/18at 06:38; Start 09/12/18 at 11:30; Stop 09/22/18 at 21 :59 Haloperidol Lactate (Haldol Inj) 10 mg Q8HRS IVP Last administered on at 06:02; Start 09/12/18 at 14:00; Stop 09/16/18 at 13:14; Status DC Dexmedetomidine HCl 200 mcg/ Sodium Chloride 50 ml @ 0 mls/hr CONT PRN IV PER PROTOCOL; Start 09/12/18 at 13:15; Stop 09/12/18 at 14:04; Status DC Sodium Chloride 500 ml @ 500 mls/hr 1X PRN PRN IV SEE COMMENTS; Start at 13:15 Atropine Sulfate (ATROPINE 0.5mg SYRINGE) 0.5 mg PRN Q5MIN PRN IV SEE COMMENTS ; Start 09/12/18 at 13:15; Stop 09/20/18 at 13:07; Status DC Morphine Sulfate (Morphine Sulfate) 2 mg PRN Q2HR PRN IV PAIN Last administered on 09/14/18at 05:10; Start 09/12/18 at 13:15; Stop 09/14/18 at 12 :57; Status DC Metoprolol Tartrate (Lopressor) 25 mg BID PO ; Start 09/12/18 at 17:00; Stop 09/12/18 at 17:00; Status DC Metoprolol Tartrate (Lopressor Vial) 5 mg Q6HRS IVP Last administered on at 06:38; Start 09/12/18 at 18:00 Vancomycin HCl 2 gm/Sodium Chloride 500 ml @ 250 mls/hr Q12H IV Last administered on 09/14/18at 23:26; Start 09/13/18 at 11:00; Stop 09/15/18 at 10 :49; Status DC Vancomycin HCl (Vancomycin Trough Level) 1 each 1X ONCE MC Last administered on 09/14/18at 10:30; Start 09/14/18 at 10:30; Stop 09/14/18 at 10:31; Status DC Nitroglycerin (Nitro-Bid Oint) 1 inch Q6HRS TP Last administered on 09/21/18at 18:54; Start 09/14/18 at 08:30 Aspirin (Aspirin) 300 mg DAILY DE Last administered on 09/22/18at 08:02; Start 09/14/18 at 11:00 Methylprednisolone Sodium Succinate (SOLU-Medrol 40MG VIAL) 40 mg DAILY IV Last administered on 09/20/18at 08:15; Start 09/15/18 at 09:00; Stop 09/20/18 at 12:45; Status DC Morphine Sulfate (Morphine Sulfate) 2 mg PRN Q2HR PRN IV PAIN Last administered on 09/17/18at 02:01; Start 09/14/18 at 13:00; Stop 09/20/18 at 13 :02; Status DC Lorazepam (Ativan) 2 mg PRN Q4HRS PRN IV ANXIETY / AGITATION Last administered on 09/15/18at 23:00; Start 09/15/18 at 22:45; Stop 09/16/18 at 13:14; Status DC Haloperidol Lactate (Haldol Inj) 5 mg Q8HRS IVP Last administered on at 06:11; Start 09/16/18 at 14:00; Stop 09/17/18 at 09:42; Status DC Chlordiazepoxide (Librium) 50 mg Q6H PO Last administered on 09/18/18at 08:26; Start 09/17/18 at 15:00; Stop 09/18/18 at 12:41; Status DC Chlordiazepoxide (Librium) 50 mg PRN Q1HR PRN PO For CIWA 8-14; Start at 14:30; Stop 09/20/18 at 13:07; Status DC Chlordiazepoxide (Librium) 100 mg PRN Q1HR PRN PO For CIWA 15 or greater; Start 09/17/18 at 14:30; Stop 09/20/18 at 13:02; Status DC Haloperidol Lactate (Haldol Inj) 5 mg PRN Q4HRS PRN IVP Hallucinatns,Confusn, Delirium Last administered on 09/21/18at 05:02; Start 09/17/18 at 14:30 Nitroglycerin/ Dextrose 250 ml @ 1.5 mls/hr CONT PRN IV SEE I/O RECORD; Start 09/17/18 at 15:30; Stop 09/19/18 at 10:52; Status DC Lorazepam (Ativan) 1 mg PRN Q4HRS PRN IV ANXIETY / AGITATION; Start 09/17/18 at 15:45; Stop 09/20/18 at 13:02; Status DC Lorazepam (Ativan) 2 mg PRN Q4HRS PRN IV ANXIETY / AGITATION Last administered on 09/20/18at 08:14; Start 09/17/18 at 16:00; Stop 09/20/18 at 13:02; Status DC Chlordiazepoxide (Librium) 25 mg Q6H PO Last administered on 09/20/18at 08:10; Start 09/18/18 at 15:00; Stop 09/20/18 at 12:45; Status DC Enoxaparin Sodium (Lovenox 40mg Syringe) 40 mg Q24H SQ Last administered on at 13:30; Start 09/19/18 at 12:00 Chlordiazepoxide (Librium) 25 mg PRN Q6HRS PRN PO withdrawals only; Start at 12:45; Stop 09/20/18 at 13:02; Status DC Methylprednisolone Sodium Succinate (SOLU-Medrol 40MG VIAL) 20 mg DAILY IV Last administered on 09/22/18at 08:01; Start 09/21/18 at 09:00 Levothyroxine Sodium 25 mcg/ Sodium Chloride 5 ml @ 0 mls/hr Q3DAYS IVP ; Start 09/24/18 at 09:00 Info (Tpn Per Pharmacy) 1 each PRN DAILY PRN MC SEE COMMENTS; Start 09/22/18 at 22:00 Active Scripts Active Pantoprazole Sodium 40 Mg Tablet.dr 40 Mg PO DAILYAC Lidoderm (Lidocaine) 700 Mg Adh..patch 1 Patch TD DAILY 12hours on, 12 hours off Lisinopril 2.5 Mg Tablet 2.5 Mg PO DAILY Feosol (Ferrous Sulfate) 325 Mg Tablet 325 Mg PO DAILYAC Children's Aspirin (Aspirin) 81 Mg Tab.chew 81 Mg PO DAILYWBKFT Reported Ventolin Hfa Inhaler (Albuterol Sulfate) 18 Gm Hfa.aer.ad 2 Puff INH Q4HRS Mirtazapine 45 Mg Tablet 1 Tab PO QHS Glipizide 5 Mg Tablet 1 Tab PO BID Metformin Hcl 1,000 Mg Tablet 1,000 Mg PO BIDWMEALS Lantus (Insulin Glargine,Hum.rec.anlog) 100 Unit/1 Ml Vial 50 Unit SQ HS NITROGLYCERIN SubLingual (Nitroglycerin) 0.4 Mg Tab.subl 0.4 Mg SL PRN Q5MIN PRN Fluoxetine Hcl 20 Mg Capsule 3 Cap PO DAILY Novolin R (Insulin Regular, Human) 100 Unit/1 Ml Vial 100 Unit IJ QIDACHS Vitamin D3 (Cholecalciferol (Vitamin D3)) 1,000 Unit Tablet 1 Tab PO TID Vitamin B-12 (Cyanocobalamin (Vitamin B-12)) 1,000 Mcg Tablet 1 Tab PO DAILY Gemfibrozil 600 Mg Tablet 0.5 Tab PO BID Pepcid (Famotidine) 20 Mg Tablet 10 Mg PO BID Cardizem Cd (Diltiazem Hcl) 240 Mg Cap.er.24h 1 Cap PO DAILY Robaxin (Methocarbamol) 500 Mg Tablet 1 Tab PO BID PRN Niaspan (Niacin) 500 Mg Tab.er.24h 1 Tab PO QHS Gabapentin 600 Mg Tablet 300 Mg PO QID Symbicort 80-4.5 Mcg Inhaler (Budesonide/Formoterol Fumarate) 10.2 Gm Hfa.aer.ad 2 Puff IH BID Finasteride 5 Mg Tablet 1 Tab PO DAILY Levothyroxine Sodium 50 Mcg Tablet 1 Tab PO DAILY Tamsulosin Hcl 0.4 Mg Cap.er.24h 0.4 Mg PO BID Spiriva (Tiotropium Adair) 18 Mcg Cap.w.dev 2 Inh IH DAILY Hydrocodone-Apap 7.5-325 (Hydrocodone Bit/Acetaminophen) 1 Each Tablet 1 Tab PO Q4HRS PRN Metoprolol Tartrate 25 Mg Tablet 1 Tab PO BID Vitals/I & O Vital Sign - Last 24 Hours 09/21/18 09/21/18 09/21/18 09/21/18 11:45 13:31 13:31 15:28 Temp 96.0 96.0 Pulse 74 74 75 Resp 20 B/P (MAP) 155/86 155/86 176/78 (110) Pulse Ox 94 90 O2 Delivery Room Air Room Air 09/21/18 09/21/18 09/21/18 09/21/18 16:51 18:54 18:54 19:09 Temp 96.6 96.6 Pulse 75 75 76 B/P (MAP) 176/78 176/78 175/100 (125) Pulse Ox 94 95 O2 Delivery Room Air Room Air O2 Flow Rate 2.0 09/21/18 09/21/18 09/21/18 09/22/18 20:01 21:15 23:00 00:00 Temp 96.4 96.4 Pulse 71 77 B/P (MAP) 188/108 (134) 161/92 Pulse Ox 96 94 O2 Delivery Nasal Cannula Room Air Room Air O2 Flow Rate 2.0 2.0 09/22/18 09/22/18 09/22/18 09/22/18 02:51 06:38 07:27 07:55 Temp 97.5 97.5 97.5 97.5 Pulse 77 77 77 Resp 24 B/P (MAP) 161/92 (115) 161/92 141/57 (85) Pulse Ox 92 93 93 O2 Delivery Room Air Room Air Room Air O2 Flow Rate 2.0 09/22/18 08:00 O2 Delivery Room Air Intake and Output 09/21/18 09/21/18 09/22/18 15:01 23:01 07:01 Intake Total 0 ml Output Total 275 ml 280 ml Balance 0 ml -275 ml -280 ml LESLEY PALM MD Sep 22, 2018 10:35
[2018-09-22 11:26] VITALS: BP 154/76
[2018-09-22 11:32] LABS: CALCIUM 9.4 mg/dL (8.5-10.1); CREATININE 0.8 mg/dL (0.7-1.3); GFR 95.8; POTASSIUM 3.9 mmol/L (3.5-5.1)
[2018-09-22 11:36] LABS: MAGNESIUM 1.7 mg/dL (1.8-2.4); PHOSPHORUS 3.6 mg/dL (2.6-4.7)
[2018-09-22] MEDS: ENOXAPARIN 40 MG/0.4 ML SYRINGE. SQ SCH (12:30)
[2018-09-22] MEDS ORDERED: MAGNESIUM SULFATE 2GM 50 ML IV ONE (13:30)
[2018-09-22] MEDS ORDERED: ENOX40DI3 SQ (14:25)
[2018-09-22] MEDS ORDERED: IPRA3AMP29 NEB (14:25)
--- NOTE | 2018-09-22 14:26 | DISCH ---
DISCHARGE DISCHARGE INFORMATION: DISCHARGE DATE: Sep 23, 2018 FINAL DIAGNOSIS Problems Medical Problems: (1) Acute kidney injury Status: Acute (2) Alcohol withdrawal Status: Acute (3) Pneumonia Status: Acute (4) Rhabdomyolysis Status: Acute CONDITION ON DISCHARGE: Stable CODE STATUS: Code Status: Full [facility]CI: SNF STAY <30 DAYS: Yes HOSPICE: HOSPICE: No HOSPICE EVAL & TREAT: No LTAC: ADMIT TO LTAC: Yes POST DISCHARGE ORDERS: ACTIVITY ORDERS: No restrictions WEIGHT BEARING STATUS: No restrictions DIET AFTER DISCHARGE: Cardiac CHECKS AFTER DISCHARGE: CHECKS AFTER DISCHARGE: Check blood press - daily, Check blood sugar, ac/hs TREATMENT/EQUIPMENT ORDERS: ADAPTIVE EQUIPMENT NEEDED: Commode, Four wheeled walker INFUSION EQUIPMENT NEEDED: PICC Line Physical Therapy For: Evalulation/Treatment Occupational Therapy For: Evaluation/Treatment Speech Language Pathology For: Evaluation/Treatment DISCHARGE MEDICATIONS: Home Meds Active Scripts Ipratropium/Albuterol Sulfate (DUONEB 0.5-3(2.5) MG/3 ML) 3 Ml Ampul.neb, 3 ML NEB RTQID for soa MDD 1, #30 EACH Prov:WILLEM CORRAL MD 09/22/18 Enoxaparin Sodium (ENOXAPARIN SODIUM) 40 Mg/0.4 Ml Disp.syrin, 40 MG SQ Q24H for dvt ppx, #30 DIS.SYR Prov:WILLEM CORRAL MD 09/22/18 Pantoprazole Sodium (PANTOPRAZOLE SODIUM) 40 Mg Tablet.dr, 40 MG PO DAILYAC, #30 Prov:HYACINTH SIMS MD 07/16/16 Lidocaine (LIDODERM) 700 Mg Adh..patch, 1 PATCH TD DAILY, #30 12hours on, 12 hours off Prov:HYACINTH SIMS MD 07/16/16 Lisinopril (LISINOPRIL) 2.5 Mg Tablet, 2.5 MG PO DAILY, #30 Prov:HYACINTH SIMS MD 07/16/16 Ferrous Sulfate (FEOSOL) 325 Mg Tablet, 325 MG PO DAILYAC, #30 Prov:HYACINTH SIMS MD 07/16/16 Aspirin (Children's Aspirin) 81 Mg Tab.chew, 81 MG PO DAILYWBKFT, #30 TAB.CHEW Prov:HYACINTH SIMS MD 07/16/16 Reported Medications Albuterol Sulfate (VENTOLIN HFA INHALER) 18 Gm Hfa.aer.ad, 2 PUFF INH Q4HRS for FOR ASTHMA, INHALER 0 Refills 09/11/18 Mirtazapine (MIRTAZAPINE) 45 Mg Tablet, 1 TAB PO QHS for mood, #30 TAB 1 Refill 09/11/18 Glipizide (GLIPIZIDE) 5 Mg Tablet, 1 TAB PO BID for blood glucose, #60 TAB 3 Refills 09/11/18 Metformin Hcl (METFORMIN HCL) 1,000 Mg Tablet, 1000 MG PO BIDWMEALS for blood glucose, TAB 09/11/18 Insulin Glargine,Hum.rec.anlog (LANTUS) 100 Unit/1 Ml Vial, 50 UNIT SQ HS for insulin, VIAL 09/11/18 Nitroglycerin (NITROGLYCERIN SubLingual) 0.4 Mg Tab.subl, 0.4 MG SL PRN Q5MIN PRN for CHEST PAIN, BOTTLE 09/11/18 Fluoxetine Hcl (FLUOXETINE HCL) 20 Mg Capsule, 3 CAP PO DAILY for mood, #90 CAP 1 Refill 09/11/18 Insulin Regular, Human (NOVOLIN R) 100 Unit/1 Ml Vial, 100 UNIT IJ QIDACHS for blood sugar, EACH 09/11/18 Cholecalciferol (Vitamin D3) (VITAMIN D3) 1,000 Unit Tablet, 1 TAB PO TID for supplement, #30 TAB 5 Refills 09/11/18 Cyanocobalamin (Vitamin B-12) (VITAMIN B-12) 1,000 Mcg Tablet, 1 TAB PO DAILY for supplement, #30 TAB 2 Refills 09/11/18 Gemfibrozil (GEMFIBROZIL) 600 Mg Tablet, 0.5 TAB PO BID for cholesterol, #60 TAB 5 Refills 09/11/18 Famotidine (PEPCID) 20 Mg Tablet, 10 MG PO BID for gi, TAB 09/11/18 Diltiazem Hcl (CARDIZEM CD) 240 Mg Cap.er.24h, 1 CAP PO DAILY for heart, #30 CAP 5 Refills 09/11/18 Methocarbamol (ROBAXIN) 500 Mg Tablet, 1 TAB PO BID PRN for MUSCLE SPASMS, #60 TAB 09/11/18 Niacin (NIASPAN) 500 Mg Tab.er.24h, 1 TAB PO QHS for cholesterol, #30 TAB 5 Refills 09/11/18 Gabapentin (GABAPENTIN) 600 Mg Tablet, 300 MG PO QID for NEUROGENIC PAIN, TAB 09/11/18 Budesonide/Formoterol Fumarate (SYMBICORT 80-4.5 MCG INHALER) 10.2 Gm Hfa.aer.ad , 2 PUFF IH BID, #10.2 GM 5 Refills 07/09/16 Finasteride (FINASTERIDE) 5 Mg Tablet, 1 TAB PO DAILY, #30 TAB 11 Refills 07/09/16 Levothyroxine Sodium (LEVOTHYROXINE SODIUM) 50 Mcg Tablet, 1 TAB PO DAILY, #30 TAB 5 Refills 07/09/16 Tamsulosin Hcl (TAMSULOSIN HCL) 0.4 Mg Cap.er.24h, 0.4 MG PO BID for prostate, TAB 07/09/16 Tiotropium [place] (SPIRIVA) 18 Mcg Cap.w.dev, 2 INH IH DAILY, #1 INH 0 Refills 07/09/16 Hydrocodone Bit/Acetaminophen (HYDROCODONE-APAP 7.5-325 ) 1 Each Tablet, 1 TAB PO Q4HRS PRN for PAIN, TAB 0 Refills 07/09/16 Metoprolol Tartrate (METOPROLOL TARTRATE) 25 Mg Tablet, 1 TAB PO BID, #180 TAB 1 Refill 07/09/16 WILLEM CORRAL MD Sep 22, 2018 14:26
--- NOTE | 2018-09-22 14:47 | PDOC3 ---
Discharge Summary Visit Information Date of Admission: Sep 09, 2018 Date of Discharge: Sep 22, 2018 Admitting Diagnosis Comment: Alcohol withdrawal Rhabdomyolysis- acute kidney injury secondary to above Hypercapnic/hypoxic respiratory failure in a super morbidly obese on NIPPV SABRINA, need CPAP at night Possible pickwickian syndrome CAP/atelectasis on chest x-ray History of CAD, CABG COPD flare History of sepsis/UTI History of IBS, alternating bowel movements History of alcoholism AK I on CK D/ VMN Diabetes Acute on chronic back pain-took 15 [place] in before the hospital stay Accel hypertension Final Diagnosis Problems Medical Problems: (1) Acute kidney injury Status: Acute (2) Alcohol withdrawal Status: Acute (3) Pneumonia Status: Acute (4) Rhabdomyolysis Status: Acute Brief Hospital Course Allergies Allergies Coded Allergies Type Severity Reaction Last Updated Verified Penicillins Allergy Intermediate PEELING HANDS; TOLERATES AMOXICILLIN Yes celecoxib Allergy Intermediate "i dont know" 07/09/16 Yes gabapentin Allergy Intermediate "i dont know" 07/09/16 Yes pregabalin Allergy Intermediate "i dont know" 07/09/16 Yes tadalafil Allergy Intermediate "i dont know" 07/09/16 Yes terazosin Allergy Intermediate "i dont know" 07/09/16 Yes varenicline Allergy Intermediate "i dont know" 07/09/16 Yes Vital Signs Vital Signs Date Time Temp Pulse Resp B/P (MAP) Pulse Ox O2 Delivery O2 Flow Rate FiO2 09/22/18 12:31 84 154/76 09/22/18 11:58 93 Room Air 09/22/18 11:26 97.7 18 97.7 09/22/18 02:51 2.0 Lab Results Laboratory Tests Test 09/20/18 18:05 09/20/18 23:07 09/21/18 06:02 09/21/18 12:09 Glucose (Fingerstick) 144 mg/dL (70-99) 106 mg/dL (70-99) 129 mg/dL (70-99) 151 mg/dL (70-99) Test 09/21/18 16:17 09/22/18 00:50 09/22/18 06:34 09/22/18 10:55 Glucose (Fingerstick) 134 mg/dL (70-99) 93 mg/dL (70-99) 118 mg/dL (70-99) Sodium Level 138 mmol/L (136-145) Potassium Level 3.9 mmol/L (3.5-5.1) Chloride Level 102 mmol/L (98-107) Carbon Dioxide Level 27 mmol/L (21-32) Anion Gap 9 (6-14) Blood Urea Nitrogen 13 mg/dL (8-26) Creatinine 0.8 mg/dL (0.7-1.3) Estimated GFR (Cockcroft-Gault) 95.8 Glucose Level 156 mg/dL (70-99) Calcium Level 9.4 mg/dL (8.5-10.1) Phosphorus Level 3.6 mg/dL (2.6-4.7) Magnesium Level 1.7 mg/dL (1.8-2.4) Test 09/22/18 12:05 Glucose (Fingerstick) 147 mg/dL (70-99) Laboratory Tests Test 09/21/18 16:17 09/22/18 00:50 09/22/18 06:34 09/22/18 10:55 Glucose (Fingerstick) 134 mg/dL (70-99) 93 mg/dL (70-99) 118 mg/dL (70-99) Sodium Level 138 mmol/L (136-145) Potassium Level 3.9 mmol/L (3.5-5.1) Chloride Level 102 mmol/L (98-107) Carbon Dioxide Level 27 mmol/L (21-32) Anion Gap 9 (6-14) Blood Urea Nitrogen 13 mg/dL (8-26) Creatinine 0.8 mg/dL (0.7-1.3) Estimated GFR (Cockcroft-Gault) 95.8 Glucose Level 156 mg/dL (70-99) Calcium Level 9.4 mg/dL (8.5-10.1) Phosphorus Level 3.6 mg/dL (2.6-4.7) Magnesium Level 1.7 mg/dL (1.8-2.4) Test 09/22/18 12:05 Glucose (Fingerstick) 147 mg/dL (70-99) Brief Hospital Course Mr. Garcia is a 67 old obese male who [facility], [facility] for confusion with alcoholism - came in respiratory failure needing BiPAP. Respiration has now improved and is stable in terms of that and transferred to the floors. But course remarkable for persistent encephalopathy. At the ICU he needed Precedex or almost an Ativan drip. He has been sober claims. But course over at 6th floor marked for remarkable for encephalopathy, persistent confusion and anxiety. and pulmo does not wish ativan, but haldol is ok.. Failing swallow. Now has TPN via PICC line. Mary out and voiding freely. Accepted at LTAC and has been accepted. Insurance via Medicare. agreeable to transfer today. Full code. Strict nothing by mouth, we have TPN via PICC, IV meds and stuff per rectum. Consults performed pulmonary, neurology Procedures performed BiPAP Please consult and Dr. Christian I have discussed with at bedside once arrives at LTAC. Patient seen and examined, 2 notes today, discussed with social work NO ATIVAN pLS Discharge Information Condition at Discharge: Stable Disposition/Orders: Other (ltac) Scheduled Albuterol Sulfate (Ventolin Hfa Inhaler) 18 Gm Hfa.aer.ad, 2 PUFF INH Q4HRS for FOR ASTHMA, Ref 0 (Reported) Entered as Reported by: Delilah Guerrero on 09/11/18937 Last Action: New Order on 09/11/18937 by Delilah Guerrero Aspirin (Children's Aspirin) 81 Mg Tab.chew, 81 MG PO DAILYWBKFT, #30 Prescribed by: HYACINTH SIMS MD on 07/16/16 1105 Last Action: Continued on 09/09/181703 by WILLEM CORRAL Budesonide/Formoterol Fumarate (Symbicort 80-4.5 Mcg Inhaler) 10.2 Gm Hfa.aer.ad , 2 PUFF IH BID, #10.2 Ref 5 (Reported) Entered as Reported by: NICOLA MINOR on 07/09/16 1754 Last Action: Converted on 09/09/181703 by WILLEM CORRAL Cholecalciferol (Vitamin D3) (Vitamin D3) 1,000 Unit Tablet, 1 TAB PO TID for supplement, #30 Ref 5 (Reported) Entered as Reported by: Delilah Guerrero on 09/11/18937 Last Action: New Order on 09/11/18937 by Delilah Guerrero Cyanocobalamin (Vitamin B-12) (Vitamin B-12) 1,000 Mcg Tablet, 1 TAB PO DAILY for supplement, #30 Ref 2 (Reported) Entered as Reported by: Delilah Guerrero on 09/11/18937 Last Action: New Order on 09/11/18937 by Delilah Guerrero Diltiazem Hcl (Cardizem Cd) 240 Mg Cap.er.24h, 1 CAP PO DAILY for heart, #30 Ref 5 (Reported) Entered as Reported by: Delilah Guerrero on 09/11/18928 Last Action: New Order on 09/11/18928 by Delilah Guerrero Enoxaparin Sodium (Enoxaparin Sodium) 40 Mg/0.4 Ml Disp.syrin, 40 MG SQ Q24H for dvt ppx, #30 Prescribed by: WILLEM CORRAL on 09/22/18 1425 Famotidine (Pepcid) 20 Mg Tablet, 10 MG PO BID for gi, (Reported) Entered as Reported by: Delilah Guerrero on 09/11/18928 Last Action: New Order on 09/11/18928 by Delilah Guerrero Ferrous Sulfate (Feosol) 325 Mg Tablet, 325 MG PO DAILYAC, #30 Prescribed by: HYACINTH SIMS MD on 07/16/16 1105 Last Action: Continued on 09/09/181703 by WILLEM CORRAL Finasteride (Finasteride) 5 Mg Tablet, 1 TAB PO DAILY, #30 Ref 11 (Reported) Entered as Reported by: NICOLA MINOR on 07/09/16 1752 Last Action: Continued on 09/09/181703 by WILLEM CORRAL Fluoxetine Hcl (Fluoxetine Hcl) 20 Mg Capsule, 3 CAP PO DAILY for mood, #90 Ref 1 (Reported) Entered as Reported by: Delilah Guerrero on 09/11/18937 Last Action: New Order on 09/11/18937 by Delilah Guerrero Gabapentin (Gabapentin) 600 Mg Tablet, 300 MG PO QID for NEUROGENIC PAIN, ( Reported) Entered as Reported by: Delilah Guerrero on 09/11/18928 Last Action: New Order on 09/11/18928 by Delilah Guerrero Gemfibrozil (Gemfibrozil) 600 Mg Tablet, 0.5 TAB PO BID for cholesterol, #60 Ref 5 (Reported) Entered as Reported by: Delilah Guerrero on 09/11/18928 Last Action: New Order on 09/11/18928 by Delilah Guerreor Glipizide (Glipizide) 5 Mg Tablet, 1 TAB PO BID for blood glucose, #60 Ref 3 ( Reported) Entered as Reported by: Delilah Guerrero on 09/11/18937 Last Action: New Order on 09/11/18937 by Delilah Guerrero Insulin Glargine,Hum.rec.anlog (Lantus) 100 Unit/1 Ml Vial, 50 UNIT SQ HS for insulin, (Reported) Entered as Reported by: Delilah Guerrero on 09/11/18937 Last Action: New Order on 09/11/18937 by Delilah Guerrero Insulin Regular, Human (Novolin R) 100 Unit/1 Ml Vial, 100 UNIT IJ QIDACHS for blood sugar, (Reported) Entered as Reported by: Delilah Guerrero on 09/11/18937 Last Action: New Order on 09/11/18937 by Delilah Guerrero Ipratropium/Albuterol Sulfate (Duoneb 0.5-3(2.5) Mg/3 Ml) 3 Ml Ampul.neb, 3 ML NEB RTQID for soa MDD 1, #30 Prescribed by: WILLEM CORRAL on 09/22/18 1425 Levothyroxine Sodium (Levothyroxine Sodium) 50 Mcg Tablet, 1 TAB PO DAILY, #30 Ref 5 (Reported) Entered as Reported by: NICOLA MINOR on 07/09/16 175 Last Action: Converted on 09/09/181703 by WILLEM CORRAL Lidocaine (Lidoderm) 700 Mg Adh..patch, 1 PATCH TD DAILY, #30 12hours on, 12 hours off Prescribed by: HYACINTH SIMS MD on 07/16/16 1105 Last Action: Converted on 09/09/181703 by WILLEM CORRAL Lisinopril (Lisinopril) 2.5 Mg Tablet, 2.5 MG PO DAILY, #30 Prescribed by: HYACINTH SIMS MD on 07/16/16 1105 Last Action: Converted on 09/09/181703 by WILLEM CORRAL Metformin Hcl (Metformin Hcl) 1,000 Mg Tablet, 1,000 MG PO BIDWMEALS for blood glucose, (Reported) Entered as Reported by: Delilah Guerrero on 09/11/18937 Last Action: New Order on 09/11/18937 by Delilah Guerrero Metoprolol Tartrate (Metoprolol Tartrate) 25 Mg Tablet, 1 TAB PO BID, #180 Ref 1 (Reported) Entered as Reported by: NICOLA MINOR on 07/09/161111 Last Action: Continued on 09/09/181703 by WILLEM CORRAL Mirtazapine (Mirtazapine) 45 Mg Tablet, 1 TAB PO QHS for mood, #30 Ref 1 ( Reported) Entered as Reported by: Delilah Guerrero on 09/11/18937 Last Action: New Order on 09/11/18937 by Delilah Guerrero Niacin (Niaspan) 500 Mg Tab.er.24h, 1 TAB PO QHS for cholesterol, #30 Ref 5 ( Reported) Entered as Reported by: Delilah Gurerero on 09/11/18928 Last Action: New Order on 09/11/18928 by Delilah Guerrero Pantoprazole Sodium (Pantoprazole Sodium) 40 Mg Tablet.dr, 40 MG PO DAILYAC, #30 Prescribed by: HYACINTH SIMS MD on 07/16/161104 Last Action: Continued on 09/09/181703 by WILLEM CORRAL Tamsulosin Hcl (Tamsulosin Hcl) 0.4 Mg Cap.er.24h, 0.4 MG PO BID for prostate, ( Reported) Entered as Reported by: NICOLA MINOR on 07/09/161751 Last Action: Edited on 09/11/18921 by Delilah Guerrero Tiotropium Slick (Spiriva) 18 Mcg Cap.w.dev, 2 INH IH DAILY, #1 Ref 0 ( Reported) Entered as Reported by: NICOLA MINOR on 07/09/161751 Last Action: Converted on 09/09/181703 by WILLEM CORRAL Scheduled PRN Hydrocodone Bit/Acetaminophen (Hydrocodone-Apap 7.5-325 ) 1 Each Tablet, 1 TAB PO Q4HRS PRN for PAIN, Ref 0 (Reported) Entered as Reported by: NICOLA MINOR on 07/09/16 1112 Last Action: HELD on 09/09/181703 by WILLEM CORRAL Methocarbamol (Robaxin) 500 Mg Tablet, 1 TAB PO BID PRN for MUSCLE SPASMS, #60 ( Reported) Entered as Reported by: Delilah Guerrero on 09/11/18928 Last Action: New Order on 09/11/18928 by Delilah Guerrero Nitroglycerin (NITROGLYCERIN SubLingual) 0.4 Mg Tab.subl, 0.4 MG SL PRN Q5MIN PRN for CHEST PAIN, (Reported) Entered as Reported by: Delilah Guerrero on 09/11/18937 Last Action: New Order on 09/11/18937 by WILLEM Caro MD Sep 22, 2018 14:46
[2018-09-22 15:17] VITALS: BP 153/86
[2018-09-22 18:46] VITALS: BP 146/77
[2018-09-22] MEDS: HALOPERIDOL LACTATE 5 MG/ML VIAL. IVP PRN (20:23)
[2018-09-22] MEDS ORDERED: AMINO ACID IV SCH ×12 (22:00)
[2018-09-22] MEDS ORDERED: TOTAL PARENTERAL NUTRITION IV SCH ×12 (22:00)
[2018-09-22] MEDS ORDERED: DEXTROSE 70% IV SCH ×12 (22:00)
[2018-09-22] MEDS ORDERED: TPN PER PHARMACY MC PRN (22:00)
[2018-09-22] MEDS ORDERED: [UNRECOGNIZED DRUG - OTHER] IV SCH ×12 (22:00)
[2018-09-24] MEDS ORDERED: NORMAL SALINE IVP SCH (09:00)
[2018-09-24] MEDS ORDERED: LEVOTHYROXINE SODIUM IVP SCH (09:00)
== END 2018-09-22 20:33 | DRG 871 ==
LOC: ER 14:36 → UNDOADMIN 17:15 → 1 WEST ICU 17:15 → 6 SOUTH 09-18 14:13 → 1 WEST ICU 09-18 14:13
PROVIDERS: ADMIT Internal Medicine; ATTEND Internal Medicine
PROC: 02HV33Z Insertion of Infusion Device into Superior Vena Cava, Percutaneous Approach (ICD-10-PCS; principal; 2018-09-09)
PROC: B548ZZA Ultrasonography of Superior Vena Cava, Guidance (ICD-10-PCS; 2018-09-09)
PROC: 5A09357 Assistance with Respiratory Ventilation, Less than 24 Consecutive Hours, Continuous Positive Airway Pressure (ICD-10-PCS; 2018-09-09)
PROC: 5A09357 Assistance with Respiratory Ventilation, Less than 24 Consecutive Hours, Continuous Positive Airway Pressure (ICD-10-PCS; 2018-09-10)
PROC: 5A09457 Assistance with Respiratory Ventilation, 24-96 Consecutive Hours, Continuous Positive Airway Pressure (ICD-10-PCS; 2018-09-11)
PROC: 5A09357 Assistance with Respiratory Ventilation, Less than 24 Consecutive Hours, Continuous Positive Airway Pressure (ICD-10-PCS; 2018-09-14)
PROC: 5A09357 Assistance with Respiratory Ventilation, Less than 24 Consecutive Hours, Continuous Positive Airway Pressure (ICD-10-PCS; 2018-09-15)
PROC: 5A09357 Assistance with Respiratory Ventilation, Less than 24 Consecutive Hours, Continuous Positive Airway Pressure (ICD-10-PCS; 2018-09-16)
DX: A41.9 Sepsis, unspecified organism (principal); J18.9 Pneumonia, unspecified organism; G92 Toxic encephalopathy; N17.0 Acute kidney failure with tubular necrosis; J96.22 Acute and chronic respiratory failure with hypercapnia; J96.21 Acute and chronic respiratory failure with hypoxia; F10.231 Alcohol dependence with withdrawal delirium; I67.4 Hypertensive encephalopathy; J44.0 Chronic obstructive pulmonary disease with (acute) lower respiratory infection; J44.1 Chronic obstructive pulmonary disease with (acute) exacerbation; J98.11 Atelectasis; M62.82 Rhabdomyolysis; E66.2 Morbid (severe) obesity with alveolar hypoventilation; I16.1 Hypertensive emergency; I12.9 Hypertensive chronic kidney disease with stage 1 through stage 4 chronic kidney disease, or unspecified chronic kidney disease; E11.22 Type 2 diabetes mellitus with diabetic chronic kidney disease; N18.9 Chronic kidney disease, unspecified; F41.9 Anxiety disorder, unspecified; G89.29 Other chronic pain; I25.10 Atherosclerotic heart disease of native coronary artery without angina pectoris; K58.9 Irritable bowel syndrome, unspecified; J20.9 Acute bronchitis, unspecified; R31.9 Hematuria, unspecified; M54.9 Dorsalgia, unspecified; R13.10 Dysphagia, unspecified; Z79.4 Long term (current) use of insulin; I48.0 Paroxysmal atrial fibrillation; Z96.651 Presence of right artificial knee joint; Z79.51 Long term (current) use of inhaled steroids; Z79.899 Other long term (current) drug therapy; Z95.1 Presence of aortocoronary bypass graft; Z87.440 Personal history of urinary (tract) infections; Z68.33 Body mass index [BMI] 33.0-33.9, adult; Z88.6 Allergy status to analgesic agent; Z88.1 Allergy status to other antibiotic agents; Z88.0 Allergy status to penicillin; Z88.8 Allergy status to other drugs, medicaments and biological substances; Y92.89 Other specified places as the place of occurrence of the external cause; Z87.891 Personal history of nicotine dependence; E78.5 Hyperlipidemia, unspecified; K21.9 Gastro-esophageal reflux disease without esophagitis; M19.90 Unspecified osteoarthritis, unspecified site; Z82.49 Family history of ischemic heart disease and other diseases of the circulatory system; Z87.81 Personal history of (healed) traumatic fracture; Z79.01 Long term (current) use of anticoagulants; E83.42 Hypomagnesemia; T40.2X2A Poisoning by other opioids, intentional self-harm, initial encounter
CPT/HCPCS: 36415; 36556; 36569; 36600; 70450; 70551; 71045; 76937; 80048; 80053; 80061; 80202; 80307; 80329; 81001; 82550; 82803; 82805; 82962; 83605; 83690; 83735; 84100; 84145; 84443; 84484; 85007; 85025; 85610; 85651; 85730; 87040; 87186; 87205; 87641; 93005; 93308; 94640; 94660; 94760; 95816; 96374; 96375; C1892; C9113; G0480; G6039; J0692; J1630; J1644; J1650; J1815; J1956; J2060; J2270; J2920; J3370; J3475; J3490; J7030; J7040; J7620; J7626; 92526; 92610; 97112; 97530; 97535; 99291-25